=== PATIENT | male | born 1950 | race Caucasian/White ===

== ENCOUNTER 2024-01-31 13:24 | Emergency (ER) | payer OTHER, SELFPAY ==
[2024-01-31 13:44] VITALS: BP 130/57
[2024-01-31 14:48] VITALS: BMI 29.9
--- NOTE | 2024-01-31 15:08 | ED.GENMED ---
History of Present Illness
<Selina Parham PA-C - Last Filed: 01/31/24 19:14>
General
Chief Complaint: Skin Problem
Source: patient
Exam Limitations: none
Time Seen by Provider: 01/31/24 14:40
Nursing documentation reviewed up to this point in time: agreed with
Travel History
Have you had any contact with someone who has COVID-19?: No
Do you have any symptoms of coronavirus? Fever > 100 degrees, chills, cough, shortness of breath, sore throat, loss of taste or smell, muscle aches, or headache?: No
History of Present Illness
History of Present Illness:
73-year-old male with past medical history of COPD on 4 L at baseline, coronary artery disease presenting emergency department today with concerns of redness and swelling to his right lower extremity. Patient states that he currently resides at a
rehab facility to learn how to use his oxygen and one of the nurses noticed the swelling and advised him to report to emergency department. Patient denies any pain in his leg, denies any difficulty ambulating. Patient denies any fevers or chills,
any nausea or vomiting, any abdominal pain. Patient denies any acute worsening of his shortness of breath. Patient denies any chest pain. Of note, patient states that he saw his senior energy analyst for follow-up a few days ago and states that everything
looked good from their standpoint and he was taken off of his Eliquis and now he just takes aspirin. Patient denies any fevers or chills. Of note, patient notes that he fell on his right side recently and he is on Eliquis and hit his head at the
time. Patient did not see anyone at that time
Past History
<Selina Parham PA-C - Last Filed: 01/31/24 19:14>
Past History
ED Past Medical History: COPD
Social History
Tobacco: Smoker
Living: with family
Employment: Not employed
Family History
Family History: Unable to obtain (Patient obtunded)
Review of Systems
<MIRNA Ansari Last Filed: 01/31/24 19:14>
Review of Systems
All Other Systems: ROS reviewed and negative except as documented in HPI and ROS
Phy Exam
<MIRNA Ansari Last Filed: 01/31/24 19:14>
Physical Exam
Physical Exam:
General: Patient is well appearing and in no acute distress; non-toxic
Skin: There is erythema across to anterior surface of the right calf with warmth noted, no open lesions
Head: Hematoma noted to the left forehead, no tenderness palpation of the facial bones. Bilateral ecchymosis noted to the eyebrows bilaterally.
Eyes: Sclera non-icteric. EOMs intact. PERRLA.
Cardiac: Regular rate and rhythm, no murmurs
Peripheral Vascular: 2+ dorsalis pedis pulse bilaterally, non-pitting edema noted to the right lower extremity
Pulm: No tachypnea, no hypoxia, pt on 4L chronically. No wheezes, rales, rhonchi heard on exam
Abdomen: No abdominal tenderness
Musculoskeletal: No tenderness palpation of the right lower extremity, no pain with passive range of motion
Neuro: CN II-XII intact, no focal neurologic deficits.
Psychiatric: Appropriate mood and affect.
Course
<MIRNA Ansari Last Filed: 01/31/24 19:14>
Orders/Labs/Results
Orders:
Orders
01/31/24 15:31
US Legs, Right [US Periph Venous LOWER Ext RT] Urgent
Comment:
Reason For Exam: right lower extremity swelling and erythema
01/31/24 15:41
CT Head W/o Iv Contrast Urgent
Comment:
Reason For Exam: head trauma
01/31/24 17:25
Complete Blood Count/With Diff Urgent
Comprehensive Metabolic Panel Urgent
Abnormal Lab Results
01/31/24
17:25
RBC 3.90 L 10^6/uL
(4.70-6.10)
Hgb 11.5 L g/dL
(13.0-18.0)
Hct 34.7 L %
(39.0-52.0)
Absolute Neuts (auto) 7.3 H 10^3/uL
(1.4-6.5)
Absolute Monos (auto) 0.8 H 10^3/uL
(0.1-0.6)
Neutrophils % 76.5 H %
(42.2-75.2)
Lymphocytes % 12.8 L %
(20.5-51.1)
Carbon Dioxide 32 H mmol/L
(22-30)
BUN 25 H mg/dl
(9-20)
Glucose 104 H mg/dl
(70-99)
Total Bilirubin 1.5 H mg/dl
(0.2-1.3)
01/31/24 17:25
01/31/24 17:25
Vital Signs
Initial and Last Documented VS:
Initial Vital Signs
Temp Pulse Resp BP Pulse Ox
98.8 F 62 20 130/57 93
01/31/24 13:44 01/31/24 13:44 01/31/24 13:44 01/31/24 13:44 01/31/24 13:44
Last Documented Vital Signs
Temp Pulse Resp BP Pulse Ox
98.8 F 63 18 159/68 93
01/31/24 13:44 01/31/24 18:46 01/31/24 18:30 01/31/24 15:36 01/31/24 18:15
Inalt;Nestor Balderrama, DO - Last Filed: 01/31/24 15:48>
Orders/Labs/Results
Orders:
Orders
01/31/24 15:31
US Legs, Right [US Periph Venous LOWER Ext RT] Urgent
Comment:
Reason For Exam: right lower extremity swelling and erythema
01/31/24 15:41
CT Head W/o Iv Contrast Urgent
Comment:
Reason For Exam: head trauma
01/31/24 17:25
Complete Blood Count/With Diff Urgent
Comprehensive Metabolic Panel Urgent
Abnormal Lab Results
01/31/24
17:25
RBC 3.90 L 10^6/uL
(4.70-6.10)
Hgb 11.5 L g/dL
(13.0-18.0)
Hct 34.7 L %
(39.0-52.0)
Absolute Neuts (auto) 7.3 H 10^3/uL
(1.4-6.5)
Absolute Monos (auto) 0.8 H 10^3/uL
(0.1-0.6)
Neutrophils % 76.5 H %
(42.2-75.2)
Lymphocytes % 12.8 L %
(20.5-51.1)
Carbon Dioxide 32 H mmol/L
(22-30)
BUN 25 H mg/dl
(9-20)
Glucose 104 H mg/dl
(70-99)
Total Bilirubin 1.5 H mg/dl
(0.2-1.3)
01/31/24 17:25
01/31/24 17:25
Vital Signs
Initial and Last Documented VS:
Initial Vital Signs
Temp Pulse Resp BP Pulse Ox
98.8 F 62 20 130/57 93
01/31/24 13:44 01/31/24 13:44 01/31/24 13:44 01/31/24 13:44 01/31/24 13:44
Last Documented Vital Signs
Temp Pulse Resp BP Pulse Ox
98.8 F 63 18 159/68 93
01/31/24 13:44 01/31/24 18:46 01/31/24 18:30 01/31/24 15:36 01/31/24 18:15
<MIRNA Ansari Last Filed: 01/31/24 19:14>
MDM/Problems Addressed
Differential Diagnosis Includes:
Differentials include CHF exacerbation, lymphedema, cellulitis, erysipelas, DVT
MDM/Problems Addressed:
Right leg swelling
Chronic conditions affecting care:
COPD, emphysema, coronary artery disease
Acute Exacerbation and/or Progression of Chronic Illness:
COPD,
<MIRNA Ansari Last Filed: 01/31/24 19:14>
*Pulse Oximetry
Patient hypoxic: no (4L @ baseline)
*Upper Leather Sorter Interpretation
Rate: normal
Interpretation: normal
Heart Rate: 60
Rhythm: sinus
*Critical Care Note
Total Time (30-74mins, 75-104mins- exclusive of procedures): Not Applicable
Data Reviewed
Source: patient and records
<MIRNA Ansari Last Filed: 01/31/24 19:14>
Patient Management
Escalation/DeEscalation of care consider admission/obs:
73-year-old male with past medical history of COPD on 4 L at baseline, coronary artery disease presenting emergency department today with concerns of redness and swelling to his right lower extremity. Patient sent by his nurse for concerns of DVT.
Patient denies any pain in his leg, any difficulty ambulating, any new or worsening shortness of breath other than his chronic baseline symptoms. Patient denies any chest pain. CT negative for any acute intracranial abnormality other than his
scalp hematoma noted on physical exam. Will treat with antibiotics for cellulitis. Advised cardiology and PCP follow-up. Patient stable for discharge.
ED Attending Note
<Selina Parham PA-C - Last Filed: 01/31/24 19:14>
-
Portions of this chart may have been created with voice recognition software.� Occasional wrong word or��sound alike� substitutions may have occurred due to the inherent limitations of voice recognition software.
<Nestor Balderrama DO - Last Filed: 01/31/24 15:48>
ED Attending Note
Patient seen and examined by attending physician: Yes
I performed a history and physical exam of patient and discussed management with resident, I reviewed resident's note and agree with documented findings and plan of care.: Yes
ED Attending Note:
I have reviewed and agree with history and treatment plan by Selina Parham. My exam revealed 73-year-old male no acute distress, erythema and edema on the right lower leg. Good. Patient on oxygen in ED. He is on oxygen at baseline. Ecchymosis
under bilateral eyes. Will obtain CBC, ultrasound. CT head
Discharge Plan
Departure
Patient Disposition: Home (Routine Discharge)
Date of Disposition: 01/31/24
Time of Disposition: 18:09
Patient with high blood pressure during this ER visit?: Yes
Discharge Problem:
Cellulitis
Instructions: Cellulitis (Skin Infection), Adult (DC), BLOOD PRESSURE
Prescriptions:
New
cephalexin 500 mg capsule
500 mg PO QID 7 Days Qty: 28 0RF
No Action
amlodipine 5 MG tablet
5 mg PO DAILY 30 Days Qty: 30 0RF
aspirin 81 MG tablet,chewable
81 mg PO DAILY 30 Days Qty: 30 0RF
metoprolol tartrate 25 MG tablet
25 mg PO BID 30 Days Qty: 60 11RF
bicalutamide 50 mg tablet
50 mg PO DAILY
furosemide 40 mg Tablet
40 mg PO BID AT 0800,1600 Qty: 60 0RF
potassium chloride 10 mEq Tablet,Er Particles/Crystals
10 meq PO DAILY Qty: 30 0RF
Rx Instructions:
take with lasix
ipratropium-albuterol 0.5 mg-3 mg(2.5 mg base)/3 mL Solution For Nebulization
3 ml inhalation R BID Qty: 90 0RF
budesonide 0.5 mg/2 mL Suspension For Nebulization
0.5 mg inhalation R BID Qty: 60 0RF
acetaminophen 325 mg Tablet
650 mg PO Q4HPRN PRN (Reason: mild pain)
ammonium lactate 12 % Lotion
1 applic TOPICAL BID
Rx Instructions:
apply to R lower extremity
sertraline 50 mg Tablet
100 mg PO DAILY
mometasone 0.1 % Cream
1 applic TOPICAL BID
Rx Instructions:
apply to R lower extremity
tiotropium bromide 2.5 mcg/actuation Mist
2 puff INHALATION R DAILY
atorvastatin 40 MG tablet
40 mg PO QPM
magnesium hydroxide [Milk of Magnesia] 400 mg/5 mL suspension
30 ml PO DAILYPRN PRN (Reason: constipation)
bisacodyl 10 mg suppository
10 mg NE DAILYPRN PRN (Reason: constipation if mom is ineffective)
Enema 19-7 gram/118 mL enema
118 ml NE DAILYPRN PRN (Reason: constipation if dulcolax ineff)
Referrals:
NONE,* [Active] -
Activity Restrictions/Additional Instructions:
Please follow up with your primary care provider in one week to ensure the resolution of your symptoms.
We have sent an antibiotic called Keflex to your pharmacy. Please take one tablet 4 times daily for 7 days.
PLEASE RETURN TO THE EMERGENCY DEPARTMENT SHOULD YOU EXPERIENCE CHEST PAIN, SHORTNESS OF BREATH, FEVERS OR CHILLS, NAUSEA OR VOMITING, OR ANY OTHER CONCERNING SIGNS OR SYMPTOMS.
Interventions
Interventions:
*Risk Screen - Suicide Last Done: 01/31/24 13:44
*General Assessment Last Done: 01/31/24 13:44
*Neglect/Abuse Screening Last Done: 01/31/24 13:44
ED- Fall Risk Assessment Last Done: 01/31/24 14:48
*ED COVID-19 Vaccine History Last Done: 01/31/24 14:53
ED-Skin Assessment Last Done: 01/31/24 14:53
Discharge Date and Time
Print Language: GREENLANDIC
[2024-01-31 15:36] VITALS: BP 159/68
[2024-01-31 17:34] LABS: % Basophils 0.3 % (0-2); % Eosinophils 1.5 % (0-6); % Immature Granulocytes 0.3 % (0-0.5); % Lymphocytes 12.8 % (20.5-51.1); % Monocytes 8.6 % (1.7-9.3); % Neutrophils 76.5 % (42.2-75.2); Absolute Eosinophils 0.1 10^3/uL (0-0.7); Absolute Lymphocytes 1.2 10^3/uL (1.2-3.4); Absolute Monocytes 0.8 10^3/uL (0.1-0.6); Absolute Neutrophils 7.3 10^3/uL (1.4-6.5); Hematocrit 34.7 % (39.0-52.0); Hemoglobin 11.5 g/dL (13.0-18.0); Mean Corp Hgb Conc. 33.1 g/dL (33.0-37.0); Mean Corpuscular Hgb 29.5 pg (27.0-31.0); Mean Platelet Volume 9.7 fL (7.4-10.4); Nucleated Red Blood Cells % 0 % (-); Platelet Count 282 10^3/uL (130-400); Red Cell Dist. Width 13.1 % (11.5-14.5); White Blood Cell Count 9.6 10^3/uL (4.8-10.8)
[2024-01-31 17:51] LABS: ALT (SGPT) 18 U/L (0-50); AST (SGOT) 27 U/L (17-59); Alkaline Phosphatase 108 U/L (38-126); Blood Urea Nitrogen 25 mg/dl (9-20); Carbon Dioxide 32 mmol/L (22-30); Chloride 98 mmol/L (98-107); Estimated Creatinine Clearance 79 ml/min; Glucose 104 mg/dl (70-99); Potassium 4.5 mmol/L (3.5-5.1); Sodium 139 mmol/L (135-145); Total Bilirubin 1.5 mg/dl (0.2-1.3); Total Protein 6.9 g/dl (6.3-8.2); eGFR > 60.00
== END 2024-01-31 21:14 | disposition home or self-care (01) ==
LOC: EMR 13:24
PROVIDERS: Student in an Organized Health Care Education/Training Program; EMERGENCY PHYSICIAN Emergency Medicine; FAMILY PHYSICIAN Internal Medicine Geriatric Medicine
DX: L03.115 Cellulitis of right lower limb (principal); R03.0 Elevated blood-pressure reading, without diagnosis of hypertension; F17.200 Nicotine dependence, unspecified, uncomplicated; I25.10 Atherosclerotic heart disease of native coronary artery without angina pectoris
CPT/HCPCS: 99285; 70450; 80053; 85025; 93971

== ENCOUNTER 2024-03-23 12:27 | Emergency (ER) | payer OTHER, SELFPAY ==
[2024-03-23 12:30] VITALS: BP 130/67
[2024-03-23 12:35] VITALS: BP 130/67; BMI 32.0
--- NOTE | 2024-03-23 12:55 | ED.GENMED ---
History of Present Illness
General
Chief Complaint: Breathing Problem
Source: patient
Time Seen by Provider: 03/23/24 12:49
History of Present Illness
History of Present Illness:
This patient is a 73-year-old male with a history of pulmonary fibrosis/respiratory disease, oxygen dependent, who presents emergency department from the pulmonary office where he was being seen by a nurse practitioner and was noted to have an
increasing oxygen requirement. Patient says he feels 'perfect', and is sitting in bed watching TV with 4 L of oxygen in place via nasal cannula. He denies fever, chills, cough, sore throat, rhinorrhea, chest pain, new shortness of breath. Patient
has chronic dyspnea on exertion which she says is unchanged. He denies orthopnea or PND. According to the INCOME TAX EXPERT note, patient was noted to have an increasing oxygen requirement with his 6-minute walking test and therefore was referred to the ER.
Past History
Past History
ED Past Medical History: COPD and Other ( Adenocarcinoma of prostate, Muscle wasting and atrophy, Hypertension, Anxiety, NSTEMI (non-ST elevated myocardial infarction), Nocturia, Heart failure with preserved ejection fraction, VT (ventricular
tachycardia), Cellulitis, Metabolic encephalopathy, Acute respiratory failure with hyp)
Social History
Tobacco: Smoker
Alcohol: None
Drug: None
Living: shelter
Employment: Not employed
Family History
Family History: Unable to obtain (Patient obtunded)
Phy Exam
Physical Exam
Physical Exam:
GENERAL: Alert , in no apparent distress
EYE: pupils equal and reactive, no photophobia
NECK: Supple, no significant adenopathy.
ENT: o/p clr, mmm.
CARDIAC: Regular rate and rhythm .
LUNGS: Equal breath sounds bilaterally, no acute respiratory distress, no retractions, speaks in full sentences easily, bibasilar rales noted
ABDOMEN: Soft, without focal tenderness, no r/g, no cvat
NEUROLOGICAL: Alert and oriented, no focal neuro deficits
SKIN: Warm and dry, skin intact.
MUSCULOSKELETAL: Trace bilateral lower extremity edema, well perfused.
PSYCH: Normal and appropriate interaction.
Scores
Heart Failure Risk
Heart Failure Risk Score: Not Applicable
Course
Orders/Labs/Results
Orders:
Orders
03/23/24 13:13
Venous Blood Gas Stat
%Oxygen/Room Air: 3l
03/23/24 14:05
ABG [Arterial Blood Gas] Stat
%Oxygen/Room Air: 4
Abnormal Lab Results
03/23/24 03/23/24
13:13 14:05
pCO2 54 H mmHg
(35-48)
pO2 72 L mmHg
(83-108)
HCO3 37.5 H mmol/L
(21-28)
VBG pCO2 59 H mmHg
(35-48)
VBG pO2 121 H mmHg
(30-50)
VBG HCO3 37.4 H mmol/L
(22-27)
Vital Signs
Initial and Last Documented VS:
Initial Vital Signs
Temp Pulse Resp BP Pulse Ox
98.3 F 56 19 130/67 92
03/23/24 12:35 03/23/24 12:35 03/23/24 12:35 03/23/24 12:35 03/23/24 12:35
Last Documented Vital Signs
Temp Pulse Resp BP Pulse Ox
98.3 F 56 19 130/67 92
03/23/24 12:35 03/23/24 12:35 03/23/24 12:35 03/23/24 12:35 03/23/24 12:35
*Critical Care Note
Total Time (30-74mins, 75-104mins- exclusive of procedures): Not Applicable
Update Note
Update Note:
Patient presents to the Emergency Department with ___reported increasing hypoxia with walking
Number and Complexity of Problems Addressed at the Encounter
� Chronic conditions affecting care:
� Acute Exacerbation and/or Progression of Chronic Illness:
� Differential Diagnosis includes: But not limited to worsening underlying pulmonary disease, heart failure, ACS, etc.
Amount and/or Complexity of Data to be Reviewed and Analyzed
� I performed an independent evaluation of and my interpretation is:
EKG:
CT:
Xrays:
Laboratory Studies:
Other:
� Review of other/old records reveals: Office note from ecw '6MW test today 03/23/24 he required 8L NC to maintain above 88% .
I reviewed wtih him my concen that he can not be on that much oxygen safely.
Previously only 3 L NC
He refuses to the ER for evaluation
He refuses to allow me to call his family to discuss.
I reviewed with him that he is at risk for sudden , CVA, CT and other problems related to his hypoxia.
Our staff spoke to the staff at [facility] and they have informed us that this has happened several times at the facility and he refuses ER evaluation.
I am concerned that his Co2 levels are elevated and he is not of the mental state to make these decisions.
911 was called by our practice
-
Ideally, he would benefit from nocturnal noninvasive mechanical ventilation. He declined.
� Clinical information was obtained by an independent historian:
� Prescriptions/Medications Considered but not given:
� Further testing considered but not performed:
Risk of Complications and/or Morbidity or Mortality of Patient Management
� Social determinants of health affecting care:
� Discussion with other providers (PCP, Hospitalists, Consultants, etc):
� Escalation of care including admission/observation vs risk of discharge considered: 2:37 PM patient remains awake alert well-appearing. And interactions with him I do not have concerns that he is incompetent to make decisions,
and clearly cannot state that he understands risks. His ABG does not demonstrate excessive CO2 elevation. Case d/w pulm (Nicolette) and is aware, agrees.
Case dw nursing care attendant at facility, Clari, also aware of hx, phys, vitals, abg etc and also agrees, accepts him back.
ED Attending Note
-
Portions of this chart may have been created with voice recognition software.� Occasional wrong word or��sound alike� substitutions may have occurred due to the inherent limitations of voice recognition software.
Discharge Plan
Departure
Patient Disposition: Home (Routine Discharge)
Date of Disposition: 03/23/24
Time of Disposition: 15:28
Patient with high blood pressure during this ER visit?: Yes
Condition: Good
Discharge Problem:
Dyspnea
Instructions: Shortness of Breath (Dyspnea) (DC), BLOOD PRESSURE
Prescriptions:
No Action
amlodipine 5 MG tablet
5 mg PO DAILY 30 Days Qty: 30 0RF
aspirin 81 MG tablet,chewable
81 mg PO DAILY 30 Days Qty: 30 0RF
metoprolol tartrate 25 MG tablet
25 mg PO BID 30 Days Qty: 60 11RF
bicalutamide 50 mg tablet
50 mg PO DAILY
potassium chloride 10 mEq Tablet,Er Particles/Crystals
10 meq PO DAILY Qty: 30 0RF
Rx Instructions:
take with lasix
ipratropium-albuterol 0.5 mg-3 mg(2.5 mg base)/3 mL Solution For Nebulization
3 ml inhalation R BID Qty: 90 0RF
budesonide 0.5 mg/2 mL Suspension For Nebulization
0.5 mg inhalation R BID Qty: 60 0RF
acetaminophen 325 mg Tablet
650 mg PO Q4HPRN PRN (Reason: mild pain)
sertraline 50 mg Tablet
100 mg PO DAILY
tiotropium bromide 2.5 mcg/actuation Mist
2 puff INHALATION R DAILY
atorvastatin 40 MG tablet
40 mg PO QPM
magnesium hydroxide [Milk of Magnesia] 400 mg/5 mL suspension
30 ml PO DAILYPRN PRN (Reason: constipation)
bisacodyl 10 mg suppository
10 mg AL DAILYPRN PRN (Reason: if mom is ineffective)
Enema 19-7 gram/118 mL enema
118 ml AL DAILYPRN PRN (Reason: constipation if dulcolax ineff)
furosemide 40 mg tablet
40 mg PO BID
Referrals:
Keshav Hdez MD [Family Provider] -
Activity Restrictions/Additional Instructions:
IF YOU DEVELOP FEVER, CHILLS, VOMITING, CHEST PAIN, WORSENING TROUBLE BREATHING, OR OTHER WORRISOME SIGNS, GO TO THE ER IMMEDIATELY!
Discharge Date and Time
Print Language: MALIAN
[2024-03-23 13:01] VITALS: BP 121/102
[2024-03-23 13:33] LABS: Venous Blood Gas B.E. 10.5 mmol/L (-4 to +4); Venous Blood Gas HCO3 37.4 mmol/L (22-27); Venous Blood Gas O2 Sat % 99.1 %; Venous Blood Gas O2 Therapy 31; Venous Blood Gas pCO2 59 mmHg (35-48); Venous Blood Gas pH 7.41 (7.32-7.43); Venous Blood Gas pO2 121 mmHg (30-50)
[2024-03-23 14:00] VITALS: BP 130/70
[2024-03-23 14:11] LABS: B.E. 11.5 mmol/L; HCO3 37.5 mmol/L (21-28); O2 Saturation % 96.4 % (94-98); PCO2 54 mmHg (35-48); PO2 72 mmHg (83-108); pH 7.45 (7.35-7.45)
[2024-03-23 15:00] VITALS: BP 127/69
[2024-03-23 16:00] VITALS: BP 134/77
== END 2024-03-23 18:11 | disposition home or self-care (01) ==
LOC: EMR 12:27
PROVIDERS: EMERGENCY PHYSICIAN Emergency Medicine; FAMILY PHYSICIAN Internal Medicine Geriatric Medicine
DX: R06.09 Other forms of dyspnea (principal); I11.0 Hypertensive heart disease with heart failure; I50.32 Chronic diastolic (congestive) heart failure; F17.200 Nicotine dependence, unspecified, uncomplicated; J84.10 Pulmonary fibrosis, unspecified; Z99.81 Dependence on supplemental oxygen
CPT/HCPCS: 99283; 82805

== ENCOUNTER → 2024-04-09 11:11 | Outpatient (REF) | payer OTHER, SELFPAY | LOC: RCS 11:11 | PROVIDERS: ATTENDING PHYSICIAN Nuclear Medicine Nuclear Cardiology; FAMILY PHYSICIAN Internal Medicine | DX: I50.31 Acute diastolic (congestive) heart failure (principal) | CPT/HCPCS: 93306 ==

== ENCOUNTER 2024-08-08 14:46 | Inpatient (IN) | payer OTHER, SELFPAY ==
[2024-08-08] VITALS (25 sets, daily range): BP systolic 100–159; BP diastolic 52–91; PULSE 2–73; BMI 33.2
[2024-08-08 11:22] LABS: % Basophils 0.3 % (0-2); % Immature Granulocytes 0.4 % (0-0.5); % Lymphocytes 4.2 % (20.5-51.1); % Monocytes 7.7 % (1.7-9.3); % Neutrophils 87.4 % (42.2-75.2); Absolute Immature Granulocytes 0.1 10^3/uL (0-0.05); Absolute Lymphocytes 0.5 10^3/uL (1.2-3.4); Absolute Neutrophils 10.8 10^3/uL (1.4-6.5); Hematocrit 40.8 % (39.0-52.0); Hemoglobin 12.6 g/dL (13.0-18.0); Mean Corp Hgb Conc. 30.9 g/dL (33.0-37.0); Mean Corpuscular Hgb 26.8 pg (27.0-31.0); Mean Corpuscular Volume 86.8 fL (80.0-94.0); Mean Platelet Volume 9.3 fL (7.4-10.4); Nucleated Red Blood Cells % 0.2 % (-); Platelet Count 305 10^3/uL (130-400); Red Cell Dist. Width 15.1 % (11.5-14.5); White Blood Cell Count 12.4 10^3/uL (4.8-10.8)
[2024-08-08 11:34] LABS: Lactic Acid 1.9 mmol/L (0.7-2.0)
--- NOTE | 2024-08-08 11:43 | ED.GENMED ---
History of Present Illness
General
Chief Complaint: Breathing Problem
Source: patient
Exam Limitations: none
Time Seen by Provider: 08/08/24 11:32
History of Present Illness
History of Present Illness:
See MDM
Past History
Past History
ED Past Medical History: COPD and Other ( Adenocarcinoma of prostate, Muscle wasting and atrophy, Hypertension, Anxiety, NSTEMI (non-ST elevated myocardial infarction), Nocturia, Heart failure with preserved ejection fraction, VT (ventricular
tachycardia), Cellulitis, Metabolic encephalopathy, Acute respiratory failure with hyp)
Social History
Tobacco: Smoker
Alcohol: None
Drug: None
Living: assisted
Employment: Not employed
Family History
Family History: Unable to obtain (Patient obtunded)
Phy Exam
Physical Exam
Physical Exam:
See MDM
Scores
Heart Failure Risk
Heart Failure Risk Score: Yes
History of Stroke or TIA: No
History of intubation for respiratory distress: No
Heart rate on ED arrival >/= 110: No
SaO2 <90% on arrival on room air: Yes
HR >/=110 during 3min walk test (or too ill to perform test): Yes
ECG has acute ischemic changes: No
Urea >/=12mmol/L (BUN 33.6mg/dL): No
Serum CO2>/=35mmol/L: No
Troponin I or T elevated to LA Level (0.4mg/dL): No
NT-proBNP >/=5,000ng/L (5,000pg/ml): Yes
HF Risk Score: 4
Admission Status: HIGH RISK 26.1% Consider SNF treatment or admission to hospital
Course
Orders/Labs/Results
Orders:
Orders
08/08/24 11:05
ECG [Electrocardiogram (*1)] Urgent
Reason for Study: Shortness of Breath
08/08/24 11:07
EKG- Treatment ONCE
Cr Chest Portable [CR Chest Portable - 1 View] Urgent
Comment:
Reason For Exam: SOB
Reason Study Needs to be Portable: Patient Unstable
08/08/24 11:09
Complete Blood Count/With Diff Urgent
Comprehensive Metabolic Panel Urgent
Lactic Acid Urgent
NT-proBNP Urgent
Troponin I Urgent
08/08/24 11:42
Furosemide [Lasix] 80 mg IV NOW STA
Bipap [RESP] Urgent
Patient to use own unit?: No
Inspiratory Pressure (cm H2O): 10
Expiratory Pressure (cm H2O): 5
08/08/24 11:45
Piperacillin/Tazo 3.375 Gram [Zosyn] 3.375 gram in 50 ml IV NOW
08/08/24 11:50
Vancomycin [Vancocin] 2,000 mg 0.9% Sodium Chloride 500 ml [Nss] 500 ml IV NOW
08/08/24 12:08
Blood Culture Q30M
DEMARCUS Source: Blood/Venous
Specimen Description:
Blood Culture Q30M
DEMARCUS Source: Blood/Venous
Specimen Description:
Abnormal Lab Results
08/08/24
11:09
WBC 12.4 H 10^3/uL
(4.8-10.8)
Hgb 12.6 L g/dL
(13.0-18.0)
MCH 26.8 L pg
(27.0-31.0)
MCHC 30.9 L g/dL
(33.0-37.0)
RDW 15.1 H %
(11.5-14.5)
Abs Immat Gran (auto) 0.1 H 10^3/uL
(0-0.05)
Absolute Neuts (auto) 10.8 H 10^3/uL
(1.4-6.5)
Absolute Lymphs (auto) 0.5 L 10^3/uL
(1.2-3.4)
Absolute Monos (auto) 1.0 H 10^3/uL
(0.1-0.6)
Neutrophils % 87.4 H %
(42.2-75.2)
Lymphocytes % 4.2 L %
(20.5-51.1)
Troponin I 0.234 H* ng/ml
08/08/24 11:09
Vital Signs
Initial and Last Documented VS:
Initial Vital Signs
Temp Pulse Resp BP Pulse Ox
98.7 F 78 20 117/63 90
08/08/24 11:10 08/08/24 11:10 08/08/24 11:10 08/08/24 11:10 08/08/24 11:10
Last Documented Vital Signs
Temp Pulse Resp BP Pulse Ox
98.7 F 71 20 134/75 89
08/08/24 11:10 08/08/24 13:00 08/08/24 13:00 08/08/24 12:30 08/08/24 13:00
MDM/Problems Addressed
Differential Diagnosis Includes:
HPI and MDM Narrative:
73-year-old male presenting from nursing facility for evaluation of hypoxia. He has a history of COPD. Patient found to have active cough. He was found to have low pulse ox. On arrival, patient placed on nonrebreather. She was admitted
initially minimally responsive. With nonrebreather, patient now awake and alert. Patient has rhonchorous and crackly breath sounds. Chest x-ray was performed which shows concern for pulmonary edema. Patient given IV Lasix and placed on BiPAP
Physical exam
General: Uncomfortable, respiratory distress
HEENT: protecting airway
Neck: appears supple
CV: No evidence of cyanosis. Regular rate and rhythm
Resp: Crackling breath sounds throughout
Abd: Non-distended
Extremities: +2 pitting edema in lower extremities
Neuro: alert
Psych: Flat affect
Skin: Intact
Problems Addressed including Acute and Chronic Conditions affecting care:
1. Pulmonary edema and respiratory distress
Acuity: acute
Prognosis: unstable
Details: Patient requiring IV Lasix and BiPAP
2. pneumonia
Acuity: acute
Prognosis: stable
Details: Patient started on vancomycin and Zosyn
3. Hypoxia
Acuity: acute
Prognosis: unstable
Details: In the setting of pulmonary edema. Patient placed on BiPAP
4. [ ]
Acuity: acute
Prognosis: stable
Details:
5. [ ]
Acuity:
Prognosis:
Details:
Updates
Differential Diagnosis (but not limited to): Pulmonary edema, pneumonia
Testing considered: D-dimer
Drug therapy (if applicable): OTC meds, please see d/c instruction regarding Rx drugs
Amount and/or Complexity of Data Reviewed
Clinical info obtained from: Patient
External data reviewed: N/A
Labs I independently reviewed (but not limited to): [ ]
Radiology: X-ray independently reviewed: Chest x-ray concerning for pulmonary edema and right middle lobe pneumonia
Pulse Ox: hypoxic
EKG independently reviewed: Sinus rhythm, left axis, no STEMI
Building Maintenance Custodian: Sinus rhythm
Critical Care: The high probability of a clinically significant, sudden or life threatening deterioration of the cardiopulmonary system(s) required my full and direct attention, intervention and personal management. The aggregate critical care time
was 35 minutes. This time is in addition to time spent performing reported procedures but includes the following:
[x] Data Review and interpretation
[x] Patient assessment and monitoring of vital signs
[x] Documentation
[x] Medication orders and management
Risk of Complication:
Social Determinants of health: Good social support
Discussed with other providers: Hospitalist
Escalation of Care includes Admit/Obs: Given the pulmonary edema requiring IV Lasix and BiPAP, will admit
Occasional wrong word or 'sound a like' substitutions may have occurred due to the inherent limitations of voice recognition software. Read the chart carefully and recognize, using context, where substitutions have occurred.
*Critical Care Note
Total Time (30-74mins, 75-104mins- exclusive of procedures): 35 min
ED Attending Note
-
Portions of this chart may have been created with voice recognition software.� Occasional wrong word or��sound alike� substitutions may have occurred due to the inherent limitations of voice recognition software.
Discharge Plan
Departure
Patient Disposition: Admit
Date of Disposition: 08/08/24
Time of Disposition: 11:47
Admit to: IMU
Presentation/result/management discussed w/ accepting MD/DO: Hospitalist
Discharge Problem:
Pulmonary edema, PNA (pneumonia), Hypoxia
Prescriptions:
No Action
amlodipine 5 MG tablet
5 mg PO DAILY 30 Days Qty: 30 0RF
aspirin 81 MG tablet,chewable
81 mg PO DAILY 30 Days Qty: 30 0RF
metoprolol tartrate 25 MG tablet
25 mg PO BID 30 Days Qty: 60 11RF
bicalutamide 50 mg tablet
50 mg PO DAILY
potassium chloride 10 mEq Tablet,Er Particles/Crystals
10 meq PO DAILY Qty: 30 0RF
Rx Instructions:
take with lasix
ipratropium-albuterol 0.5 mg-3 mg(2.5 mg base)/3 mL Solution For Nebulization
3 ml inhalation R BID Qty: 90 0RF
budesonide 0.5 mg/2 mL Suspension For Nebulization
0.5 mg inhalation R BID Qty: 60 0RF
acetaminophen 325 mg Tablet
650 mg PO Q4HPRN PRN (Reason: mild pain/fever)
sertraline 50 mg Tablet
100 mg PO DAILY
tiotropium bromide 2.5 mcg/actuation Mist
2 puff INHALATION R DAILY
magnesium hydroxide [Milk of Magnesia] 400 mg/5 mL suspension
30 ml PO DAILYPRN PRN (Reason: constipation)
bisacodyl 10 mg suppository
10 mg AR DAILYPRN PRN (Reason: if mom is ineffective after 24h)
Enema 19-7 gram/118 mL enema
118 ml AR DAILYPRN PRN (Reason: constipation if dulcolax ineff)
furosemide 40 mg tablet
40 mg PO BID
atorvastatin 20 mg Tablet
20 mg PO HS
Referrals:
Adam Leiva I., DO [Family Provider] -
Interventions
Interventions:
*General Assessment Last Done: 08/08/24 11:15
ED- Fall Risk Assessment Last Done: 08/08/24 11:16
ED- Cardiac Assessment Last Done: 08/08/24 11:16
ED- Pulmonary Assessment Last Done: 08/08/24 11:16
Discharge Date and Time
Print Language: HUNGARIAN
[2024-08-08 11:54] LABS: NT-proBNP 13100 pg/ml; Troponin I 0.234 ng/ml
[2024-08-08] MEDS: ZOSYN 50 IV (12:09)
[2024-08-08] MEDS: LASIX 80 MG IV ×2 (12:09→20:47)
[2024-08-08] MEDS: VANCOCIN 540 MG IV (12:37)
--- NOTE | 2024-08-08 13:35 | HPS.HSE ---
Family Physician
-
Family Physician: Adam Leiva
Chief Complaint
-
cough and shortness of breath
History of Present Illness
Mr. Adam Styles is a 73 yo man with hx COPD, CAD s/p PCI, essential HTN, prostate CA, HFpEF presents to the ER with cough and hypoxia.
Patient unable to elaborate on history. He presents from [facility]. Per triage he has had worsening cough and was noted to be hypoxic this morning, arrived on NRB. Patient placed on BiPAP in ER.
He currently denies chest pain. He is able to tell me he is in [facility].
Medical History
Past Medical History
Past Medical History: Reports Other ( COPD, CAD s/p PCI, essential HTN, prostate CA, HFpEF)
Past Surgical History: Reports None
Social History
Tobacco: Smoker
Alcohol: None
Drug: None
Family History
Family History: Not pertinent
Allergies / Home Medications
Allergies reflects when Allergies were last updated in [facility].
Home Medications with original date entered in [facility]
Allergy/Medication List:
Allergies
Allergy/AdvReac Type Severity Reaction Status Date / Time
No Known Allergies Allergy Verified 08/08/24 11:15
Home Medications
amlodipine 5 mg tablet 5 mg PO DAILY 30 days #30 tabs 04/01/22
aspirin 81 mg chewable tablet 81 mg PO DAILY Heart disease/condition 30 days #30 tabs 04/01/22
metoprolol tartrate 25 mg tablet 25 mg PO BID Heart disease/condition 30 days #60 tabs 04/01/22
bicalutamide 50 mg tablet 50 mg PO DAILY Cancer 03/31/23
budesonide 0.5 mg/2 mL suspension for nebulization 0.5 mg (2 mL) inhalation R BID #60 mL 04/15/23
ipratropium 0.5 mg-albuterol 3 mg (2.5 mg base)/3 mL nebulization soln 3 ml inhalation R BID #90 mL 04/15/23
potassium chloride 10 mEq tablet,extended release(part/cryst) 10 meq PO DAILY #30 tabs 04/15/23
acetaminophen 325 mg tablet 650 mg PO Q4HPRN PRN mild pain/fever 01/31/24
bisacodyl 10 mg rectal suppository 10 mg IA DAILYPRN PRN if mom is ineffective after 24h 01/31/24
magnesium hydroxide 400 mg/5 mL oral suspension (Milk of Magnesia) 30 ml PO DAILYPRN PRN constipation 01/31/24
sertraline 50 mg tablet 100 mg PO DAILY 01/31/24
sodium phosphates 19 gram-7 gram/118 mL enema (Enema) 118 ml IA DAILYPRN PRN constipation if dulcolax ineff 01/31/24
tiotropium bromide 2.5 mcg/actuation mist for inhalation 2 puff inhalation R DAILY 01/31/24
furosemide 40 mg tablet 40 mg PO BID 03/23/24
atorvastatin 20 mg tablet 20 mg PO HS 08/08/24
Review of Systems
-
History Source: Patient
A 12 point ROS was completed and negative except as noted: Yes
Physical Exam
Vital Signs
Vital Signs
Temp Pulse Resp BP Pulse Ox
98.7 F 71 20 134/75 89
08/08/24 11:10 08/08/24 13:00 08/08/24 13:00 08/08/24 12:30 08/08/24 13:00
Physical Exam
General: Other (patient on BiPAP, awoken with voice. able to answer simple questions yes or no)
HEENT: PERRLA
Respiratory: Rales and Rhonchi; No Wheezes
Cardiac: S1/S2 and Regular Rhythm
GI: Soft and Non Tender
Musculoskeletal: Edema, Left Lower Extremity and Edema, Right Lower Extremity
Skin: Warm and Dry; No Rash
Neuro: Awake, Alert and Oriented (to place )
Psych: Calm
Laboratory Results
-
08/08/24 11:09
Laboratory Results
Lactic Acid 1.9 mmol/L (0.7-2.0) 08/08/24 11:09
Troponin I 0.234 ng/ml H* 08/08/24 11:09
Data Reviewed
-
Diagnostic Radiology: Report Reviewed by me
Lab Data: Labs Reviewed by me
Impression/Plan
-
Mr. Adam Styles is a 73 yo man with hx COPD, CAD s/p PCI, essential HTN, prostate CA, HFpEF presents to the ER with cough and hypoxia.
Triage VS: T 98.7, P 78, RR 20, BP 117/63, SpO2 90%
LABS: WBC 12.4, Hg 12.6, PLT 305, Na 142, K+ 3.7, Cl 94, CO2 35, BUN 27, Cr 0.9, Glucose 139, Lactate 1.9, lvier enzymes WNL, Trop 0.234, BNP 14849
Trop 0.234, BNP 36614
CXR: IMPRESSION:
Cardiomegaly. Radiographic findings felt to most likely represent pulmonary edema. See above discussion.
MAR: IV lasix, Vanc, Zosyn
Hypoxic Respiratory Failure
-per ER note, patient initially found minimally responsive, awake and alert post placement NRB; placed on BiPAP in ER. He wakes up to voice, minimally conversant. Will order ABG
-continue BiPAP for now
-admit to IMU
-treat heart failure as blow
-follow up flu, covid testing
-follow up procal - if elevated, will continue antibiotics (cover for CAP)
*I called sister's number listed in chart and left VM
Heart Failure preserved EF, Acute Exacerbation
-patient is on Lasix 40mg PO BID at home
-CXR with e/o HR, BNP elevated
-s/p 1 dose IV lasix in the ER
-will continue lasix 40mg IV BID
-daily weights, strict I/O
-repeat TTE
-cardiology consult
Non-DC Troponin Elevation in setting of chest pain
-patient denies chest pain
-trend Troponin
-repeat echo as above
prostate CA
-ADHESIVE BANDAGE MACHINE OPERATOR Bicalutamide
CAD s/p PCI 2021
-continue ADHESIVE BANDAGE MACHINE OPERATOR asa, statin, metoprolol
Essential HTN
-ADHESIVE BANDAGE MACHINE OPERATOR Amlodipine
Depression
-ADHESIVE BANDAGE MACHINE OPERATOR Sertraline 100mg PO QD
DVT PPx Lovenox
FULL CODE - per POLST in room (patient shakes head yes would want CPR and intubation)
Total Critical Care Time 65 minutes. I was immediately available to the patient and staff. I personally examined, reviewed labs, diagnostic images/reports, interpretations, treatment plans, discussed patient care with other providers and family
or caregivers (if patient is unable to make decisions), entered orders as appropriate and documented the medical record.
[2024-08-08 14:02] LABS: ALT (SGPT) 19 U/L (0-50); AST (SGOT) 25 U/L (17-59); Alkaline Phosphatase 91 U/L (38-126); Blood Urea Nitrogen 27 mg/dl (9-20); Calcium 8.8 mg/dl (8.4-10.2); Carbon Dioxide 35 mmol/L (22-30); Chloride 94 mmol/L (98-107); Estimated Creatinine Clearance 93 ml/min; Glucose 139 mg/dl (70-99); Potassium 3.7 mmol/L (3.5-5.1); Sodium 142 mmol/L (135-145); Total Protein 7.2 g/dl (6.3-8.2); eGFR > 60.00
--- NOTE | 2024-08-08 14:31 | CON.CAR ---
Addendum entered and electronically signed by Milton Warren MD 08/08/24 17:49:
I saw and examined the patient.
The Lawyer's note was reviewed and I agree with the note.
Comment: Briefly, 73-year-old man past medical history of heart failure preserved ejection fraction, CAD with multiple stents in the past and severe COPD on 3 L home O2 who was brought in from [facility] with worsening shortness of breath.
Cardiology is consulted with concern for acute heart failure.
Patient has reportedly been less responsive today and appeared drowsy at the time of my exam
ABG here shows respiratory acidosis, currently being treated with BiPAP
Suspect acute CHF in addition to COPD
ProBNP greater than 13,000 here
Agree with IV Lasix and attempt to improve his respiratory status
Follow daily weights, I's/O's, renal function/electrolytes
Troponin is mildly elevated as well
Not reporting chest discomfort and ischemic changes seen on ECG
Suspect this is non-CT troponin elevation in the setting of decompensated heart failure
Would trend to peak
Rest per Krys Ross
Original Note:
Consultation
Consultation Request
Date/Time Consultation Requested: 08/08/24
Date/Time Consultation Performed: 08/08/24
Requesting Provider: Dr. Moreno
Performing Provider: Dr. Warren
Reason for Consultation: Acute HF, elevated Troponin
Medical History
-
History of Present Illness:
Patient came to [facility] today with increased SOB and decreased responsiveness and cardiology is consulted for possible acute HF. Patient lives at [facility] as a long-term resident, but was able to make it to an outpatient cardiology
office visit on 07/31/24 and appeared to be doing well at that time. Patient was asked to continue Lasix 40 mg PO BID which is handled by his [facility] staff. It's not clear what has happened in the last 8 days because patient is not answering
in-depth questions. [facility] told [facility] that patient had a cough and his pulse ox was low so they called 911. EMS told the ER staff that when they arrived the patient had a low pulse ox and was minimally responsive, but that patient improved with
NRB. CXR in the ER looks like acute HF. Troponin also elevated, but no reports of chest pain. COVID and influenza negative.
PMH:
Chronic HFpEF
CAD with CT s/p 3 mm Synergy BENNY to mid to mid-distal LAD and residual 50-60% RCA lesion by cath 12/2021
Severe COPD
Chronic hypoxic respiratory failure on 3 L NC continuously
Hypertension
Hyperlipidemia
Obesity
Suspected obstructive sleep apnea
Prostate cancer
History of hematuria
Anxiety
Former smoker
Possible bipolar disorder
Past Medical History
Past Medical History: Other (in HPI)
Past Surgical History: Tonsilectomy and Other (BENNY x 2 mid-distal LAD 01/21/22, colonoscopy)
Social History
Tobacco: Former Smoker
Alcohol: None
Drug: None
Personal: Single
Living: Intermediate (was living in [facility] for a while and now at [facility], used to live in a 2nd floor apartment with his sister)
Family History
Family History: Cancer, Hypertension and Other (dementia)
Allergies / Home Medications
Allergy/AdvReac Type Severity Reaction Status Date / Time
No Known Allergies Allergy Verified 08/08/24 11:15
�Medication �Instructions �Recorded �Confirmed �Type
amlodipine 5 mg tablet 5 mg PO DAILY 30 days #30 tabs 04/01/22 08/08/24 Rx
aspirin 81 mg chewable tablet 81 mg PO DAILY Heart 04/01/22 08/08/24 Rx
disease/condition 30 days #30 tabs
metoprolol tartrate 25 mg tablet 25 mg PO BID Heart 04/01/22 08/08/24 Rx
disease/condition 30 days #60 tabs
bicalutamide 50 mg tablet 50 mg PO DAILY Cancer 03/31/23 08/08/24 History
budesonide 0.5 mg/2 mL suspension 0.5 mg (2 mL) inhalation R BID #60 04/15/23 08/08/24 Rx
for nebulization mL
ipratropium 0.5 mg-albuterol 3 mg 3 ml inhalation R BID #90 mL 04/15/23 08/08/24 Rx
(2.5 mg base)/3 mL nebulization
soln
potassium chloride 10 mEq 10 meq PO DAILY #30 tabs 04/15/23 08/08/24 Rx
tablet,extended release(part/cryst)
acetaminophen 325 mg tablet 650 mg PO Q4HPRN PRN mild 01/31/24 08/08/24 History
pain/fever
bisacodyl 10 mg rectal suppository 10 mg IN DAILYPRN PRN if mom is 01/31/24 08/08/24 History
ineffective after 24h
magnesium hydroxide 400 mg/5 mL 30 ml PO DAILYPRN PRN constipation 01/31/24 08/08/24 History
oral suspension (Milk of Magnesia)
sertraline 50 mg tablet 100 mg PO DAILY 01/31/24 08/08/24 History
sodium phosphates 19 gram-7 118 ml IN DAILYPRN PRN 01/31/24 08/08/24 History
gram/118 mL enema (Enema) constipation if dulcolax ineff
tiotropium bromide 2.5 2 puff inhalation R DAILY 01/31/24 08/08/24 History
mcg/actuation mist for inhalation
furosemide 40 mg tablet 40 mg PO BID 03/23/24 08/08/24 History
atorvastatin 20 mg tablet 20 mg PO HS 08/08/24 08/08/24 History
Review of Systems
-
History Source: Patient and Transfer Record
All other systems: Negative unless noted
Physical Exam
Vital Signs
Temp Pulse Resp BP Pulse Ox
98.7 F 65 20 108/56 89
08/08/24 11:10 08/08/24 13:45 08/08/24 13:45 08/08/24 13:30 08/08/24 13:30
GEN: NAD. Awake and alert
HEENT: EOMI, MMM
LUNGS: Wearing BiPAP. Diffuse rales and rhonchi
CV: Reg, S1/S2, no murmur
ABD: soft, BS+, NT, ND
EXT: +2 B/L LE edema. No clubbing, cyanosis or lesions B/L
NEURO: Gross non-focal
SKIN: Warm, dry and pink. No rash
Lab Results
08/08/24 11:09
08/08/24 11:09
Troponin I 0.234 ng/ml H* 08/08/24 11:09
Bfx-M-Zazbodisery Pept [id number] pg/ml 08/08/24 11:09
Impression / Plan
-
PCP: Dr. Leiva
Primary Principal Biostatistician: Dr. Kelley
Impression:
Admitted with acute on chronic hypoxic respiratory failure
placed on iPAP 08/08/24
Possible PNA
Elevated Troponin
Acute on chronic HFpEF
CAD with CT s/p 3 mm Synergy BENNY to mid to mid-distal LAD and residual 50-60% RCA lesion by cath 12/2021
Severe COPD
Chronic hypoxic respiratory failure on 3 L NC continuously
Hypertension
Hyperlipidemia
Obesity
Suspected obstructive sleep apnea
Prostate cancer
History of hematuria
Anxiety
Former smoker
Possible bipolar disorder
ECHO 01/18/22: EF 65 to 70%, hyperdynamic LV function, mild concentric LVH, stage I diastolic dysfunction, enlarged RV, mild TR, PAP 65 mmHg, moderate pulmonary hypertension
Echo 04/09/24: EF 68%, mild LVH, severe PHTN with PAP 67 mmHg, compared to echo 03/2023 no significant change
Plan:
-Patient came to [facility] today with increased SOB and decreased responsiveness and cardiology is consulted for possible acute HF. Patient lives at [facility] as a long-term resident, but was able to make it to an outpatient cardiology
office visit on 07/31/24 and appeared to be doing well at that time. Patient was asked to continue Lasix 40 mg PO BID which is handled by his [facility] staff. It's not clear what has happened in the last 8 days because patient is not answering
in-depth questions. [facility] that patient had a cough and his pulse ox was low so they called 911. EMS told the ER staff that when they arrived the patient had a low pulse ox and was minimally responsive, but that patient improved with
NRB. CXR in the ER looks like acute HF. Troponin also elevated, but no reports of chest pain. COVID and influenza negative.
-Patient with acute on chronic hypoxic respiratory failure and has improved with BiPAP. Patient is chronically on 3 L NC and during a previous HF admission in 03/2023 the patient was on high flow oxygen for almost a week and hospice was considered.
-Agree with Lasix 80 mg IV in the ER and changed admission orders to increase Lasix to 80 mg IV BID. Patient was taking Lasix 40 mg PO BID prior to admission.
-Follow Cre
-EF was 68% by echo 04/09/24. Not clear what might have precipitated volume overload.
-Patient was taking Lopressor 25 mg BID prior to admission and will consider transitioning to Toprol XL
-Patient is not chronically on KINDRA/ARB/ARNI, but was previously on lisinopril in 03/2022. Will investigate further, might have been an issue with hypotension.
-Troponin 0.234 initially. ECG reviewed by me and no acute ischemic changes.
-Trend Troponin
-Check echo
-Will manage as a nonischemic myocardial injury Troponin elevation due to acute HF.
[2024-08-08] MEDS: KCL 270 MEQ IV (14:59)
[2024-08-08 15:00] LABS: COVID-19 Antigen Negative (Negative)
[2024-08-08 15:10] LABS: B.E. 13.5 mmol/L; O2 Saturation % 93.8 % (94-98); PO2 68 mmHg (83-108); pH 7.32 (7.35-7.45)
[2024-08-08 15:15] LABS: PCO2 84 mmHg (35-48)
[2024-08-08 15:16] LABS: HCO3 43.3 mmol/L (21-28)
[2024-08-08 15:26] LABS: Procalcitonin 0.06 ng/ml (0.0-0.25)
--- NOTE | 2024-08-08 18:30 | PTCARENOTE ---
Pt received from ED via stretcher. Remains on Bipap with VSS. Responds to name. Unable to answer admission questions. K rider infusing at this time. Bed alarm in place for safety.
[2024-08-08] MEDS: PULMICORT 0.5 MG INH (19:59)
[2024-08-08] MEDS: DUONEB 3 ML INH (19:59)
[2024-08-08 20:40] LABS: B.E. 16.2 mmol/L; O2 Saturation % 98.5 % (94-98); PO2 109 mmHg (83-108); pH 7.32 (7.35-7.45)
[2024-08-08 20:41] LABS: PCO2 90 mmHg (35-48)
[2024-08-08 20:42] LABS: HCO3 46.4 mmol/L (21-28)
[2024-08-08] MEDS: LOVENOX 40 MG SC (20:46)
[2024-08-08] MEDS: LOPRESSOR PO (21:09)
--- NOTE | 2024-08-08 21:18 | PTCARENOTE ---
Addendum entered by Sally Avelar RN 08/09/24 06:01:
Pt maintained better cognitive mentation throughout [facility], able to answer questions appropriately and even getting a little annoyed with this RN for asking same questions.
Addendum entered by Sally Avelar RN 08/08/24 22:20:
BiPAP settings changed, Decadron given. Night JACQUARD TWINE POLISHER OPERATOR communication with Dr and ICU JACQUARD TWINE POLISHER OPERATOR, Pt will remain in IMU for observation of mentation at this time. Pt mentation showing improvement at this time.
Original Note:
Assumed care of Pt from Day RN. Pt currently on BiPAP. Pt drowsy will arouse to name answer a question or two and fall back asleep. Pt repeat ABG resulting critical, night JACQUARD TWINE POLISHER OPERATOR made aware and at bedside with RT.
--- NOTE | 2024-08-08 21:24 | W.PN.UPDATE ---
Addendum entered and electronically signed by Gerri Moreno MD 08/08/24 21:38:
per house PRODUCT SUPPORT CONSULTANT patient with improved mentation
will adjust BiPAP settings and continue to monitor overnight with low threshold for intubation if patient becomes more lethargic
Original Note:
Update Note
Progress Note Update
patient more lethargic this evening with worsening hypercarbic respiratory failure
decision made to intubate
House PRODUCT SUPPORT CONSULTANT updated sister
-transfer to ICU
-Field Professional updated
-will start IV steroids, continue duonebs and Lasix
[2024-08-08] MEDS: DECADRON 4 MG IV (21:50)
[2024-08-08 21:54] LABS: Troponin I 0.569 ng/ml
--- NOTE | 2024-08-08 22:01 | W.PN.UPDATE ---
Update Note
Progress Note Update
Per RN, patient w/worsening mentation, ABG shows worsening hypercarbic respiratory failure. 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 Discussed with patient possible need to intubate, patient unable
to make decision. Called primary contact, patient's sister, Camila Styles, reviewed patient status and events of admission. Patient's sister is agreeable to intubation if necessary. Re-evaluated patient, bipap setting increased, mentation is
improved, will hold off on intubation at this time. Will continue to monitor overnight. Discussed obtaining ABG with ICU provider, will defer at this time, however, if mentation declines or patient becomes obtunded, will obtain ABG. Low threshold
for intubation if patient becomes more lethargic.
[2024-08-08] MEDS: LIPITOR PO (23:06)
[2024-08-09] VITALS (27 sets, daily range): BP systolic 103–144; BP diastolic 40–106; PULSE 2–66; BMI 30.3
[2024-08-09] MEDS: DECADRON 4 MG IV ×4 (04:32→20:30)
[2024-08-09 05:19] LABS: Hematocrit 42.5 % (39.0-52.0); Hemoglobin 12.6 g/dL (13.0-18.0); Mean Corp Hgb Conc. 29.6 g/dL (33.0-37.0); Mean Corpuscular Hgb 26.6 pg (27.0-31.0); Mean Corpuscular Volume 89.9 fL (80.0-94.0); Mean Platelet Volume 9.4 fL (7.4-10.4); Platelet Count 289 10^3/uL (130-400); Red Blood Cell Count 4.73 10^6/uL (4.70-6.10); White Blood Cell Count 10.7 10^3/uL (4.8-10.8)
[2024-08-09 05:34] LABS: Blood Urea Nitrogen 25 mg/dl (9-20); Calcium 8.4 mg/dl (8.4-10.2); Chloride 94 mmol/L (98-107); Estimated Creatinine Clearance 106 ml/min; Glucose 122 mg/dl (70-99); HDL Cholesterol 27 mg/dl; LDL Cholesterol, Calculated 47 mg/dl; Magnesium 2.3 mg/dl (1.6-2.3); Potassium 3.8 mmol/L (3.5-5.1); Sodium 145 mmol/L (135-145); Total Cholesterol 86 mg/dl (50-199); Triglyceride 61 mg/dl (10-149); Very Low Density Lipoprotein 12 mg/dl (0-30); eGFR > 60.00
[2024-08-09 05:55] LABS: Carbon Dioxide 38 mmol/L (22-30)
[2024-08-09] MEDS: DUONEB 3 ML INH ×4 (07:22→20:16)
[2024-08-09] MEDS: PULMICORT 0.5 MG INH ×2 (07:23→20:15)
[2024-08-09] MEDS: CASODEX PO (07:51)
[2024-08-09] MEDS: KCL PO (07:51)
[2024-08-09] MEDS: LOPRESSOR PO (07:51)
[2024-08-09] MEDS: NORVASC PO (07:52)
[2024-08-09] MEDS: ZOLOFT PO (07:52)
[2024-08-09] MEDS: LOW STRENGTH ASPIRIN PO (07:52)
[2024-08-09] MEDS: DESENEX/MITRAZOL/ZEASORB 1 APPLIC TOPICAL ×2 (08:31→20:30)
--- NOTE | 2024-08-09 09:01 | PTCARENOTE ---
Udpated MD on pt's status this AM. remains on bipap, arousable but only briefly. BP trending down, currently 105/52. Notified MD pt ordered 80mg IV lasix. MD will review meds on rounds shortly. repeat ABG drawn. Sinus swathi on tele with HR 55.
remains NPO. Per ED pt had no gag reflex, pt also minially arousable. not yet stable enough for speech evaluation.
[2024-08-09 09:09] LABS: B.E. 17.8 mmol/L; O2 Saturation % 94.5 % (94-98); PO2 69 mmHg (83-108); pH 7.34 (7.35-7.45)
[2024-08-09 09:11] LABS: PCO2 89 mmHg (35-48)
[2024-08-09] MEDS: LASIX 80 MG IV ×2 (09:23→16:55)
--- NOTE | 2024-08-09 09:28 | PTCARENOTE ---
Dr. Sam from cards at bedside. OK to give 80mg IV lasix. updated Dr. Patton with this info plus new ABG results
--- NOTE | 2024-08-09 10:50 | W.PN.HOSP.TC ---
Today's Communication/Plan
-
Continue BiPAP until ABGs better
Add steroids and doxycycline
Continue Lasix
Wean BiPAP as tolerated
Encourage patient to get an outpatient sleep study and go on CPAP
Assessment / Plan
Assessment / Plan
73-year-old male with cough and shortness of breath. Patient is from [facility] he was hypoxic and placed on BiPAP in the ER
Patient wakes up and able to communicate
Cardiovascular system S1-S2 appreciated
Chest few short wheezes noted
Abdomen soft and nontender
Right yu with discoloration
No pedal edema
# Acute on chronic hypoxic/acute on chronic hypercapnic respiratory failure patient was obtunded in the ER
On 3 L of oxygen as outpatient
Chest x-ray reviewed by me-no infiltrates
Continue BiPAP
ABG reviewed still has CO2 retention and acute respiratory acidosis
Treat heart failure and COPD exacerbation
Procalcitonin not elevated
COVID and influenza screen negative
Blood cultures pending
Pulmonary consultation
# Acute on chronic HFpEF
Echo 04/09/2024-EF 68%, mild LVH, severe pulmonary hypertension with pulmonary artery pressure 67 mmHg
Continue metoprolol when patient can take p.o.
Continue IV Lasix
Not on KINDRA/ARB/ARNI
Repeat echo
# Elevated troponin-likely nonischemic myocardial injury secondary to above
# COPD exacerbation-add steroids, nebulizer treatments. Also add doxycycline
# Hypokalemia-resolved
# Coronary disease with history of VT and drug-eluting stents to LAD. Residual RCA lesion by cath 2021
# Hypertension-continue amlodipine, metoprolol when can take p.o.
# Hyperlipidemia/atherosclerosis-continue statin when he can take p.o.
# Anxiety/Bipolar disorder-continue sertraline when he can take p.o.
# Obesity
# Suspected sleep apnea- not on PAP as OP as pt does not want.
# Pulmonary hypertension
# History of prostate cancer and h/o hematuria-on bicalutamide. Continue with can take p.o.
# Ex-smoker
# Full code
D/W RN at bed side
D/W patient's sister and updated. I also discussed that unless he wears a PAP machine at night he is at risk for hospitalizations in future.
Time spent over 50 min
Anticipated Discharge: > 48 hours
Subjective/Interval History
-
Date of Service: August 09, 2024
Objective Data
-
Labs:
Laboratory Results
08/09/24 08/09/24 08/09/24
04:58 05:09 08:47
WBC 10.7
Hgb 12.6 L
Hct 42.5
Plt Count 289
HCO3 48.0 H*
Sodium 145
Potassium 3.8
Chloride 94 L
Carbon Dioxide 38 H
BUN 25 H
Creatinine 0.8
Glucose 122 H
Calcium 8.4
Vital Signs:
Vital Signs
Temp Pulse Resp BP Pulse Ox
97.0 F 62 20 105/52 92
08/09/24 07:23 08/09/24 09:23 08/09/24 09:00 08/09/24 09:23 08/09/24 09:10
I&O
08/08/24 08/09/24 08/10/24
06:59 06:59 06:59
Output Total 550 / 550
Balance -550 / -550
[2024-08-09] MEDS: VIBRAMYCIN 260 MG IV (12:08)
--- NOTE | 2024-08-09 12:08 | CON.PUL ---
Consultation
Consultation Request
Date/Time Consultation Requested: 08/09/24
Date/Time Consultation Performed: 08/09/24
Performing Provider: Nicolette
Reason for Consultation: SOB/hypoxemia
Medical History
-
History of Present Illness:
Patient is a 73 year old M with previous history of severe COPD/emphysema, chronic hypoxemia, obesity, suspected RICARDO/OHS (refused testing), noncompliance presenting to ER with cough and hypoxemia. Presents from [facility], with hypoxemia,
placed on 8-10L NC with sats in low 90s. He has a history of baseline use of 4L but would intermittently refused to use it. Last seen in our office in February, has history of severe COPD. He does not follow up recommendations for testing/treatment.
ABG showing worsening CO2 retention in 80s, prior testing last admission in 50s. He does not feel he has any issue with his lungs, he is in 'perfect health.'
He does not wish to change his code status and does not have family/medical POA designation. He feels he does not need it.
He is not ready for hospice despite his level of noncompliance.
Past Medical History
Past Medical History: Other (see list below)
Social History
Tobacco: Smoker
Alcohol: None
Drug: None
Family History
Family History: Reviewed & Not Pertinent
Allergies / Home Medications
Allergies
Allergy/AdvReac Type Severity Reaction Status Date / Time
No Known Allergies Allergy Verified 08/08/24 11:15
Home Medications
�Medication �Instructions �Recorded �Confirmed �Last Taken �Type
amlodipine 5 mg tablet 5 mg PO DAILY 30 days #30 tabs 04/01/22 08/08/24 Unknown Rx
aspirin 81 mg chewable tablet 81 mg PO DAILY Heart 04/01/22 08/08/24 Unknown Rx
disease/condition 30 days #30 tabs
metoprolol tartrate 25 mg tablet 25 mg PO BID Heart 04/01/22 08/08/24 Unknown Rx
disease/condition 30 days #60 tabs
bicalutamide 50 mg tablet 50 mg PO DAILY Cancer 03/31/23 08/08/24 Unknown History
budesonide 0.5 mg/2 mL suspension 0.5 mg (2 mL) inhalation R BID #60 04/15/23 08/08/24 Unknown Rx
for nebulization mL
potassium chloride 10 mEq 10 meq PO DAILY #30 tabs 04/15/23 08/08/24 Unknown Rx
tablet,extended release(part/cryst)
acetaminophen 325 mg tablet 650 mg PO Q4HPRN PRN mild 01/31/24 08/08/24 Unknown History
pain/fever
bisacodyl 10 mg rectal suppository 10 mg AL DAILYPRN PRN if mom is 01/31/24 08/08/24 Unknown History
ineffective after 24h
magnesium hydroxide 400 mg/5 mL 30 ml PO DAILYPRN PRN constipation 01/31/24 08/08/24 Unknown History
oral suspension (Milk of Magnesia)
sertraline 50 mg tablet 100 mg PO DAILY Mental 01/31/24 08/08/24 Unknown History
Health/Anxiety
sodium phosphates 19 gram-7 118 ml AL DAILYPRN PRN 01/31/24 08/08/24 Unknown History
gram/118 mL enema (Enema) constipation if dulcolax ineff
tiotropium bromide 2.5 2 puff inhalation R DAILY 01/31/24 08/08/24 Unknown History
mcg/actuation mist for inhalation Lung/Breathing Issues
furosemide 40 mg tablet 40 mg PO BID Fluid 03/23/24 08/08/24 Unknown History
Retention/Swelling
atorvastatin 20 mg tablet 20 mg PO HS High Cholesterol 08/08/24 08/08/24 Unknown History
ipratropium 0.5 mg-albuterol 3 mg 3 ml inhalation R BID 08/09/24 08/08/24 Unknown History
(2.5 mg base)/3 mL nebulization Lung/Breathing Issues
soln
Review of Systems
-
History Source: Patient
All other systems: Negative unless noted
Vitals / Labs / Diagnostic Testing
Vital Signs
Temp Pulse Resp BP Pulse Ox
97.0 F 79 24 105/52 90
08/09/24 07:23 08/09/24 11:46 08/09/24 11:46 08/09/24 09:23 08/09/24 11:46
Lab Data
08/09/24 05:09
08/09/24 04:58
Laboratory Results
08/08/24 08/08/24 08/09/24
14:55 20:30 08:47
pH 7.32 L 7.32 L 7.34 L
pCO2 84 H* 90 H* 89 H*
pO2 68 L 109 H 69 L
HCO3 43.3 H* 46.4 H* 48.0 H*
O2 Delivery Level
Microbiology
08/08/24 14:17 Nasal Swab Influenza Types A & B (NICOLE) - Final
Negative for Influenza A & B, NAAT
Negative results must be combined with clinical observations
and patient history.
Nucleic Acid Amplification test (NAAT)performed on the
[employer] platform.
Diagnostic Testing:
Physical Exam
-
HEENT: Normocephalic, Anicteric, Moist Mucous Membranes and Other (poor dentititon)
Cardiovascular: S1/S2 and Regular Rhythm
Respiratory: Rales and Non-Labored Respirations
GI: Soft, Non Distended and Non Tender
Neurology: Awake, Alert and No Motor Deficits
Skin: Warm and Dry
General: Comfortable and Other (NAD, obese, chronically ill appearing)
Assessment
-
Patient is a 73 year old M with previous history of severe COPD/emphysema, chronic hypoxemia, obesity, suspected RICARDO/OHS (refused testing), noncompliance presenting to ER with cough and hypoxemia. Presents from [facility], with hypoxemia,
placed on 8-10L NC with sats in low 90s. He has a history of baseline use of 4L but would intermittently refused to use it. Last seen in our office in February, has history of severe COPD. He does not follow up recommendations for testing/treatment.
Acute on chronic hypoxic and hypercarbic respiratory failure
ABG , prior
Acute HF exacerbation, proBNP 99013
Acute on chronic SOB/cough
Medical noncompliance
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
Coronary disease with history of LAD stent and elevated filling pressures per catheterization December 2021
Noncompliance, refusal of treatment
Severe COPD/emphysema, GOLD IV
FEV1 30%
Follows with Dr. Marte in OP last seen 02/2024
Chronic hypoxemia, on 4L
Severe pulm hypertension, PA pressure 70
RV dysfunction/dilation per echo 04/01/23
Suspect RICARDO/OHS, never had sleep study/declined testing
Prostate cancer
Incomplete right bundle branch block
Obesity
Prot mirabilis UTI
Lower extremity cellulitis
Plan
O2 protocol--maintained on 6L NC
Has needed around 4L in office in last visit, but has been noncompliant with use
Wean as tolerated
Adm ABG with severe respiratory acidosis --worsened compared to prior
Was placed on BIPAP overnight, but now stating he is not willing to use it
Stated he has no intention to continue BPAP as outpatient: we have discussed hospice but he does not believe he is ill
He does not feel he has any issue with his lungs, he is in 'perfect health.'
He does not wish to change his code status and does not have family/medical POA designation (he says he has no children or siblings, despite sister is contact). He feels he does not need anyone.
He is not ready for hospice despite his level of noncompliance.
CHF noted on imaging and proBNP
ECHO in past showing severe PH, DHF, RV dysfunction
Diuresis as tolerated
Continue budesonide
DNs prn
Resume umeclidinium/vilanterol (anoro ellipta) upon d/c
No AECOPD--no wheezing on exam
Would stop IV steroids
DVT prophylaxis: Lovenox
Suspect that patient has obesity hypoventilation syndrome/RICARDO combined with severe obstructive lung disease based on outpatient records
He has refused therapy in the past including oxygen, treatment for sleep apnea, inhaler therapy
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
Noted full code status
Will benefit from [facility] discussion with family, given his multiple comorbidities and persistent medical noncompliance. He may be at increased risk for prolonged mechanical ventilation and associated complications. In my humble opinion he should be
DNR/DNI.
This was discussed with him and care team on prior visits
Tried to discuss all above with Mr Styles again today, unfortunately he has very poor insight
Im not sure what more we can offer him
Will follow
Diagnostic Data
CXR 08/08/24- Cardiomegaly. Radiographic findings felt to most likely represent pulmonary edema.
CXR 03-31-23 (portable) c/w 01-16-22 (PA/lat): Old films with no infiltrates. Current film slightly lordotic/rotated. R basilar linear atelectasis, mild pulm vasc congestion
PET CT 01-17-23 IMPRESSION: [Marked uptake of activity in the prostate gland suspicious for malignancy.] Extension of malignancy to involve the seminal vesicles cannot be excluded on the basis of this study. Coronary artery calcifications and
sigmoid diverticulosis. Please note, evaluation may be limited with possible false negative results in light of the large volume of activity seen in the prostate gland.
R leg doppler 03-31-23: negative
TTE 04-01-23 CONCLUSIONS: Normal left ventricular chamber size. Normal left ventricular systolic function. Left ventricular ejection fraction is 55% by visual estimate. Normal regional wall motion. Mild concentric left ventricular hypertrophy. Stage
II diastolic dysfunction suggestive of abnormal relaxation and increased filling pressures. Moderately dilated right ventricle with moderately reduced systolic function. Dilated right atrium. Mild to moderate tricuspid regurgitation. Estimated
pulmonary artery pressure of 70 mmHg assuming a right atrial pressure of 15 mmHg. Compared to prior study dated 01/18/22 which was directly reviewed, LV function was previously hyperdynamic, otherwise no significant change.
Total time spent on this consultation __75__ minutes which includes review of history, physical exam, medications, laboratory data, personal review of imaging, extensive review of outpatient records, discussion with care team and respiratory therapy.
--- NOTE | 2024-08-09 14:10 | W.PN.CARDCBS ---
Addendum entered and electronically signed by Milton Warren MD 08/09/24 17:15:
I saw and examined the patient on morning rounds.
The Sorting Supervisor's note was reviewed and I agree with the note.
Comment: Briefly, 73-year-old man past medical history of heart failure preserved ejection fraction, CAD with multiple stents in the past and severe COPD on 3 L home O2 who [facility] with worsening shortness of breath.
Cardiology is consulted with concern for acute heart failure.
Patient more alert and responsive today
ABG here shows persistent respiratory acidosis, currently being treated with BiPAP
Suspect acute CHF in addition to COPD
ProBNP greater than 13,000 here
Agree with IV Lasix in an attempt to improve his respiratory status
Follow daily weights, I's/O's, renal function/electrolytes
Troponin is mildly elevated
Trend is relatively flat
No SWMA on echo
Suspect this is non-IL troponin elevation in the setting of decompensated heart failure
Original Note:
Today's Communication / Plan
-
Remains on BiPAP
Probably diuresing
Impression / Plan
-
PCP: Dr. Leiva
Primary Filters Assembler: Dr. Kelley
Impression:
Admitted with acute on chronic hypoxic respiratory failure
placed on iPAP 08/08/24
Possible PNA
Elevated Troponin
Acute on chronic HFpEF
CAD with IL s/p 3 mm Synergy BENNY to mid to mid-distal LAD and residual 50-60% RCA lesion by cath 12/2021
Severe COPD
Chronic hypoxic respiratory failure on 3 L NC continuously
Hypertension
Hyperlipidemia
Obesity
Suspected obstructive sleep apnea
Prostate cancer
History of hematuria
Anxiety
Former smoker
Possible bipolar disorder
ECHO 01/18/22: EF 65 to 70%, hyperdynamic LV function, mild concentric LVH, stage I diastolic dysfunction, enlarged RV, mild TR, PAP 65 mmHg, moderate pulmonary hypertension
Echo 04/09/24: EF 68%, mild LVH, severe PHTN with PAP 67 mmHg, compared to echo 03/2023 no significant change
Echo 08/09/24: Study pending
Plan:
-Overnight events noted and patient was near intubation, but improved on BiPAP which has been continued. Patient previously required high flow during a prolonged admission 03/2023 and hospice was considered at that time, but never pursued because
patient improved. Patient has been evaluated by psychiatry in the past and they were not able to complete the evaluation due to his unwillingness to talk to them.
-From a cardiac standpoint, patient weight is down, but it's comparing ER stretcher natty weight to a bed scale weight and I&Os are negative without any intake being reported.
-Cont Lasix 80 mg IV BID. Patient was taking Lasix 40 mg PO BID prior to admission.
-Cre stable at 0.8 on labs 08/09/24 reviewed by me
-EF was 68% by echo 04/09/24. Repeat echo pending.
-Patient was taking Lopressor 25 mg BID, will transition to Toprol XL 25 mg daily once taking POs again.
-Patient is not chronically on KINDRA/ARB/ARNI, but was previously on lisinopril in 03/2022, but it was stopped due to hypotension.
-Troponin 0.234 initially and then peaked at 0.569. ECG reviewed by me and no acute ischemic changes. Check echo, but will manage as a nonischemic myocardial injury Troponin elevation.
-Patient with chronic hypoxic respiratory failure and chronically on 3 L NC
HPI: Patient came to [facility] today with increased SOB and decreased responsiveness and cardiology is consulted for possible acute HF. Patient lives at [facility] as a long-term resident, but was able to make it to an outpatient
cardiology office visit on 07/31/24 and appeared to be doing well at that time. Patient was asked to continue Lasix 40 mg PO BID which is handled by [facility] staff. It's not clear what has happened in the last 8 days because patient is not
answering in-depth questions. shelter told EMS that patient had a cough and his pulse ox was low so they called 911. EMS told the ER staff that when they arrived the patient had a low pulse ox and was minimally responsive, but that patient
improved with NRB. CXR in the ER looks like acute HF. Troponin also elevated, but no reports of chest pain. COVID and influenza negative.
Progress Note - Filters Assembler
Subjective
Date of Service: August 09, 2024
He doesn't answer questions
Objective
Labs:
08/09/24 05:09
08/09/24 04:58
Labs
Hgb 12.6 g/dL (13.0-18.0) L 08/09/24 05:09
Hct 42.5 % (39.0-52.0) 08/09/24 05:09
Plt Count 289 10^3/uL (130-400) 08/09/24 05:09
Sodium 145 mmol/L (135-145) 08/09/24 04:58
Potassium 3.8 mmol/L (3.5-5.1) 08/09/24 04:58
BUN 25 mg/dl (9-20) H 08/09/24 04:58
Creatinine 0.8 mg/dL (0.7-1.3) 08/09/24 04:58
Glucose 122 mg/dl (70-99) H 08/09/24 04:58
Troponins
08/08/24 08/08/24 08/09/24
11:09 21:19 00:28
Troponin I 0.234 H* 0.569 H* Cancelled
08/09/24
04:57
Troponin I 0.410 H* D
Vital Signs and I&O:
Vital Signs
Temp Pulse Resp BP Pulse Ox
97.8 F 79 24 105/52 90
08/09/24 11:47 08/09/24 11:46 08/09/24 11:46 08/09/24 09:23 08/09/24 11:46
Vital Signs
Temp Pulse Resp BP Pulse Ox
97.8 F 79 24 105/52 90
08/09/24 11:47 08/09/24 11:46 08/09/24 11:46 08/09/24 09:23 08/09/24 11:46
Intake & Output
08/07/24 08/08/24 08/09/24 08/10/24
06:59 06:59 06:59 06:59
Output Total 550 / 550 550 / 550
Balance -550 / -550 -550 / -550
Physical Exam
Physical Exam
GEN: NAD. Awake and alert
HEENT: EOMI
LUNGS: Wearing BiPAP.
CV: SR on tele
ABD: ND
EXT: +2 B/L LE edema.
NEURO: Gross non-focal
SKIN: No rash
--- NOTE | 2024-08-09 14:18 | CM ---
Patient seen at bedside. Patient is from [facility] and per Demetrio Galarza patient is LTC there. Patient has been independent of ADL's per Michell and patient does not have POA or Guardian. Patient plan is to return to SNF when medically
appropriate. Patient for further assessments with PT/OT. CM will continue to follow for discharge planning needs.
Plan; return to SNF when medically appropriate.
--- NOTE | 2024-08-09 14:50 | PTOTSP ---
Speech Language Pathology
Pt seen for clinical bedside swallow evaluation. Eating lunch upon arrival. Seen with regular solids and thin liquids. Slightly prolonged mastication with mild diffuse oral residue noted, which pt was able to clear with a liquid wash. No overt
signs of aspiration. Pt impulsive when eating and was uncooperative with attempts at oral motor examination or any questions whatsoever. Continually stating he has no trouble chewing or swallowing and had no health problems before being admitted
here.
Recommend:
(1) Regular solids (easy to chew) and thin liquids
(2) Aspiration precautions: slow rate, sit upright, ensure oral cavity clear post P.O. intake, supervision with P.O.
(3) Meds as tolerated
(4) CHIEF OF ANESTHESIOLOGY to sign off
[2024-08-09] MEDS: LOVENOX 40 MG SC (17:01)
[2024-08-09] MEDS: LIPITOR 20 MG PO (20:30)
[2024-08-09] MEDS: LOPRESSOR 25 MG PO (20:30)
[2024-08-10] VITALS (16 sets, daily range): BP systolic 97–136; BP diastolic 41–78; PULSE 2–68; O2SAT 87; BMI 30.1
[2024-08-10] MEDS: VIBRAMYCIN 260 MG IV ×3 (01:03→23:42)
[2024-08-10] MEDS: DECADRON 4 MG IV ×2 (04:49→10:24)
[2024-08-10 05:36] LABS: Hematocrit 41.4 % (39.0-52.0); Hemoglobin 12.3 g/dL (13.0-18.0); Mean Corp Hgb Conc. 29.7 g/dL (33.0-37.0); Mean Corpuscular Hgb 26.4 pg (27.0-31.0); Mean Corpuscular Volume 88.8 fL (80.0-94.0); Mean Platelet Volume 10.9 fL (7.4-10.4); Platelet Count 245 10^3/uL (130-400); Red Blood Cell Count 4.66 10^6/uL (4.70-6.10); Red Cell Dist. Width 15.1 % (11.5-14.5); White Blood Cell Count 13.5 10^3/uL (4.8-10.8)
--- NOTE | 2024-08-10 06:49 | PTCARENOTE ---
Caring for patient overnight. aaox3 but does not make sense at times and seems confused. Not aware of his current state. Remains on 10LMF. Wore bipap all night, slept throughout the night. Arousable to verbal and remains aa0ox3. SR/SB on monitor.
VSS. Encouraged to turn. Bedrest. IVABX IV steroids. BA on. NO other issues overnight, will monitor.
[2024-08-10] MEDS: DUONEB 3 ML INH ×4 (07:40→19:56)
[2024-08-10] MEDS: PULMICORT 0.5 MG INH ×2 (07:40→19:56)
--- NOTE | 2024-08-10 08:30 | PN.CDI ---
CDI
- -
CDI:
Physician Documentation Request
Admit Date: 08/08/24 14:46
Dear Doctor Esteban,
Please review the following and provide your response in the progress notes.
Clinical Indicators:
Selected Entries
08/08/24
18:17
Pressure injury stage [Present on admission Right Buttock] Stage 2
Physician documentation of the type and location of wounds is required for compliant documentation. Based on the above clinical findings and your assessment, please provide the following in your progress note:
Location of the ulcer/wound, including laterality.
Type (etiology) of ulcer/wound:
- Diabetic ulcer
- Pressure (decubitus) ulcer
- Other(please specify)
For a pressure ulcer, please also include the stage* of the ulcer:
- Stage 1 - Skin intact, non-blanchable redness
- Stage 2 - Partial thickness loss of dermis, includes intact or open blister
- Stage 3 - Full thickness tissue not including bone, tendon or muscle
- Stage 4 - Full thickness tissue loss, including exposed bone, tendon or muscle
- Unstageable - Full thickness loss in which the base of the ulcer is covered by slough (yellow, silverio, perez, green or brown) and/or eschar (silverio, brown or black) in the wound bed.
Use of terms such as suspected, likely, concern for, or probable (associated with a specific diagnosis that is being evaluated, monitored, or treated as if it exists) are acceptable and can be coded in the inpatient setting, when documented at the
time of discharge.
Thank you,
Mary Balderas RN BSN CCDS
CDI Specialist
please contact via tiger text
Please use your independent medical judgment in providing your response.
*Source: National Pressure Ulcer Advisory Panel (NPUAP)
[2024-08-10] MEDS: LASIX 80 MG IV ×2 (08:34→17:02)
[2024-08-10] MEDS: KCL 10 MEQ PO (08:39)
[2024-08-10] MEDS: DESENEX/MITRAZOL/ZEASORB 1 APPLIC TOPICAL ×2 (08:39→20:26)
[2024-08-10] MEDS: LOPRESSOR 25 MG PO ×2 (08:40→20:25)
[2024-08-10] MEDS: ZOLOFT 100 MG PO (08:40)
[2024-08-10] MEDS: LOW STRENGTH ASPIRIN 81 MG PO (08:40)
[2024-08-10] MEDS: NORVASC 5 MG PO (08:40)
[2024-08-10] MEDS: CASODEX 50 MG PO (08:40)
[2024-08-10 09:57] LABS: B.E. 21.3 mmol/L; O2 Saturation % 94.8 % (94-98); PO2 67 mmHg (83-108); pH 7.43 (7.35-7.45)
[2024-08-10 10:04] LABS: HCO3 49.8 mmol/L (21-28); PCO2 75 mmHg (35-48)
--- NOTE | 2024-08-10 10:13 | W.PN.CARDCBS ---
Today's Communication / Plan
-
Continue IV diuresis for multifactorial respiratory failure
Monitor on telemetry
Possible transition to oral diuretic next 24-48 hours
Impression / Plan
-
PCP: Dr. Leiva
Primary Cellophane Bag Machine Operator: Dr. Kelley
Impression:
Admitted with acute on chronic hypoxic respiratory failure, multifactorial
placed on iPAP 08/08/24
Possible PNA
Elevated Troponin in the setting of HFPEF, COPD; no reported CP
- Troponin peak 0.569
Acute on chronic HFpEF
CAD with MN s/p 3 mm Synergy BENNY to mid to mid-distal LAD and residual 50-60% RCA lesion by cath 12/2021
Severe COPD
Chronic hypoxic respiratory failure on 3 L NC continuously
Hypertension
Hyperlipidemia
Obesity
Suspected obstructive sleep apnea
Prostate cancer
History of hematuria
Anxiety
Former smoker
Possible bipolar disorder
ECHO 01/18/22: EF 65 to 70%, hyperdynamic LV function, mild concentric LVH, stage I diastolic dysfunction, enlarged RV, mild TR, PAP 65 mmHg, moderate pulmonary hypertension
Echo 04/09/24: EF 68%, mild LVH, severe PHTN with PAP 67 mmHg, compared to echo 03/2023 no significant change
Echo 08/09/24: EF 55%, TDS, normal LV function, mild LVH, dilated RV with low normal RV sys pressure, mild TR with PASP 65-70 mmHg
Plan:
-Initial admission overnight events noted and patient was near intubation, but improved on BiPAP which has been continued. Patient previously required high flow during a prolonged admission 03/2023 and hospice was considered at that time, but never
pursued because patient improved. Patient has been evaluated by psychiatry in the past and they were not able to complete the evaluation due to his unwillingness to talk to them. Off Bipap, improving status
-From a cardiac standpoint, patient weight is down, but it's comparing ER stretcher natty weight to a bed scale weight and I&Os are negative without any intake being reported.
-Cont Lasix 80 mg IV BID. Patient was taking Lasix 40 mg PO BID prior to admission.
-Cre stable at 0.8 on labs 08/09/24 reviewed by me
-EF was 68% by echo 04/09/24. Repeat echo pending.
-Patient was taking Lopressor 25 mg BID, will transition to Toprol XL 25 mg daily once taking POs again.
-Patient is not chronically on KINDRA/ARB/ARNI, but was previously on lisinopril in 03/2022, but it was stopped due to hypotension.
-Troponin 0.234 initially and then peaked at 0.569. ECG reviewed by me and no acute ischemic changes. Will manage as a nonischemic myocardial injury Troponin elevation.
-Patient with chronic hypoxic respiratory failure and chronically on 3 L NC
HPI: Patient came to [facility] today with increased SOB and decreased responsiveness and cardiology is consulted for possible acute HF. Patient lives at [facility] as a long-term resident, but was able to make it to an outpatient
cardiology office visit on 07/31/24 and appeared to be doing well at that time. Patient was asked to continue Lasix 40 mg PO BID which is handled by his [facility] staff. It's not clear what has happened in the last 8 days because patient is not
answering in-depth questions. custodial told EMS that patient had a cough and his pulse ox was low so they called 911. EMS told the ER staff that when they arrived the patient had a low pulse ox and was minimally responsive, but that patient
improved with NRB. CXR in the ER looks like acute HF. Troponin also elevated, but no reports of chest pain. COVID and influenza negative.
Progress Note - Cellophane Bag Machine Operator
Subjective
Date of Service: August 10, 2024
Patient seen and examined. Patient resting comfortably in bed. Patient denies any chest pain, shortness of breath, lightheadedness, dizziness, weakness or edema. Patient notes improvement in breathing on nasal cannula currently. Telemetry
demonstrates sinus rhythm with occasional PVCs.
Objective
Labs:
08/10/24 05:13
Labs
Hgb 12.3 g/dL (13.0-18.0) L 08/10/24 05:13
Hct 41.4 % (39.0-52.0) 08/10/24 05:13
Plt Count 245 10^3/uL (130-400) 08/10/24 05:13
Sodium Cancelled 08/10/24 05:13
Potassium Cancelled 08/10/24 05:13
BUN Cancelled 08/10/24 05:13
Creatinine Cancelled 08/10/24 05:13
Glucose Cancelled 08/10/24 05:13
Troponins
08/08/24 08/08/24 08/09/24
11:09 21:19 00:28
Troponin I 0.234 H* 0.569 H* Cancelled
08/09/24
04:57
Troponin I 0.410 H* D
Vital Signs and I&O:
Vital Signs
Temp Pulse Resp BP Pulse Ox
97.9 F 85 16 122/59 95
08/10/24 05:08 08/10/24 07:41 08/10/24 07:41 08/10/24 06:00 08/10/24 07:41
Vital Signs
Temp Pulse Resp BP Pulse Ox
97.9 F 85 16 122/59 95
08/10/24 05:08 08/10/24 07:41 08/10/24 07:41 08/10/24 06:00 08/10/24 07:41
Intake & Output
08/08/24 08/09/24 08/10/24 08/11/24
06:59 06:59 06:59 06:59
Intake Total 860 / 860
Output Total 550 / 550 1650 / 1650
Balance -550 / -550 -790 / -790
Physical Exam
Physical Exam
GEN: NAD. Awake and alert
HEENT: EOMI, nasal cannula
LUNGS: Global decreased breath sounds bilaterally, faint crackles
CV: SR on tele, PVCs
ABD: Nontender, nondistended, positive bowel sounds
EXT: +1 B/L LE edema.
NEURO: Gross non-focal
SKIN: No rash
--- NOTE | 2024-08-10 10:20 | W.PN.PUL3 ---
Today's Communication / Plan
-
Remains on BIPAP nightly, repeat ABG likely at new baseline
Continue nightly as he accepts it, he does not wish to use it at home
IV diuresis per team
Wean O2 as tolerated, fluctuates between 6-10L
Stop IV steroids, not wheezing, not in AECOPD
PT/OT, OOB
Assessment
-
Patient is a 73 year old M with previous history of severe COPD/emphysema, chronic hypoxemia, obesity, suspected RICARDO/OHS (refused testing), noncompliance presenting to ER with cough and hypoxemia. Presents from [facility], with hypoxemia,
placed on 8-10L NC with sats in low 90s. He has a history of baseline use of 4L but would intermittently refused to use it. Last seen in our office in February, has history of severe COPD. He does not follow up recommendations for testing/treatment.
Acute on chronic hypoxic and hypercarbic respiratory failure
ABG , prior
Acute HF exacerbation, proBNP [id number]
Acute on chronic SOB/cough
Medical noncompliance
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
Coronary disease with history of LAD stent and elevated filling pressures per catheterization December 2021
Noncompliance, refusal of treatment
Severe COPD/emphysema, GOLD IV
FEV1 30%
Follows with Dr. Marte in OP last seen 02/2024
Chronic hypoxemia, on 4L
Severe pulm hypertension, PA pressure 70
RV dysfunction/dilation per echo 04/01/23
Suspect RICARDO/OHS, never had sleep study/declined testing
Prostate cancer
Incomplete right bundle branch block
Obesity
Prot mirabilis UTI
Lower extremity cellulitis
Plan
O2 protocol--maintained on 6-10L NC
Has needed around 4L in office in last visit, but has been noncompliant with use
Wean as tolerated
Adm ABG with severe respiratory acidosis --worsened compared to prior
Was placed on BIPAP overnight, has been complying while inpatient
Repeat ABG at new baseline (prior )
Continue usage as he accepts it
Stated he has no intention to continue BPAP as outpatient: we have discussed hospice but he does not believe he is ill
He does not feel he has any issue with his lungs, he is in 'perfect health.'
He does not wish to change his code status and does not have family/medical POA designation (he says he has no children or siblings, despite sister is contact). He feels he does not need anyone.
He is not ready for hospice despite his level of noncompliance.
CHF noted on imaging and proBNP
ECHO in past showing severe PH, DHF, RV dysfunction
IV Diuresis as tolerated
Continue budesonide
DNs prn
Resume umeclidinium/vilanterol (anoro ellipta) upon d/c
No AECOPD--no wheezing on exam
Stop IV steroids
DVT prophylaxis: Lovenox
Suspect that patient has obesity hypoventilation syndrome/RICARDO combined with severe obstructive lung disease based on outpatient records
He has refused therapy in the past including oxygen, treatment for sleep apnea, inhaler therapy
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
Noted full code status
Will benefit from GOC discussion with family, given his multiple comorbidities and persistent medical noncompliance. He may be at increased risk for prolonged mechanical ventilation and associated complications. In my humble opinion he should be
DNR/DNI.
This was discussed with him and care team on prior visits
Tried to discuss all above with Mr Styles again today, unfortunately he has very poor insight
Im not sure what more we can offer him
Diagnostic Data
CXR 08/08/24- Cardiomegaly. Radiographic findings felt to most likely represent pulmonary edema.
CXR 03-31-23 (portable) c/w 01-16-22 (PA/lat): Old films with no infiltrates. Current film slightly lordotic/rotated. R basilar linear atelectasis, mild pulm vasc congestion
PET CT 01-17-23 IMPRESSION: [Marked uptake of activity in the prostate gland suspicious for malignancy.] Extension of malignancy to involve the seminal vesicles cannot be excluded on the basis of this study. Coronary artery calcifications and
sigmoid diverticulosis. Please note, evaluation may be limited with possible false negative results in light of the large volume of activity seen in the prostate gland.
R leg doppler 03-31-23: negative
TTE 04-01-23 CONCLUSIONS: Normal left ventricular chamber size. Normal left ventricular systolic function. Left ventricular ejection fraction is 55% by visual estimate. Normal regional wall motion. Mild concentric left ventricular hypertrophy. Stage
II diastolic dysfunction suggestive of abnormal relaxation and increased filling pressures. Moderately dilated right ventricle with moderately reduced systolic function. Dilated right atrium. Mild to moderate tricuspid regurgitation. Estimated
pulmonary artery pressure of 70 mmHg assuming a right atrial pressure of 15 mmHg. Compared to prior study dated 01/18/22 which was directly reviewed, LV function was previously hyperdynamic, otherwise no significant change.
Total time spent on this encounter __50__ minutes which includes review of history, physical exam, medications, laboratory data, personal review of imaging, extensive review of outpatient records, discussion with care team and respiratory therapy.
Subjective Data
-
Date of Service:
Date of Service: August 10, 2024
Chief Complaint: Pulmonary Follow Up
Subjective:
No acute events ON, remains on BIPAP
Weaning o2 down
Objective Data
Data Reviewed
Vital Signs / I&O / Oxygen:
Vital Signs
Temp Pulse Resp BP Pulse Ox
97.9 F 85 16 122/59 95
08/10/24 05:08 08/10/24 07:41 08/10/24 07:41 08/10/24 06:00 08/10/24 07:41
Intake and Output
08/09/24 08/10/24 08/11/24
06:59 06:59 06:59
Intake Total 860 / 860
Output Total 550 / 550 1650 / 1650
Balance -550 / -550 -790 / -790
SaO2 95
Nasal Cannula flow liters per 6
minute
Physical Exam
General: Comfortable and Other (NAD)
HEENT: Normocephalic, Anicteric and Moist Mucous Membranes
Cardiovascular: S1-S2 and Regular Rhythm
Respiratory: Crackles and Non-Labored Respirations
GI: Soft, Non Distended and Non Tender
Neurology: Awake, Alert, Oriented and No Motor Deficits
Skin: Warm, Dry and Good Color
Labs/Micro/Reports
Lab Data
08/10/24 05:13
Laboratory Results
08/10/24
09:46
pH 7.43
pCO2 75 H*
pO2 67 L
HCO3 49.8 H*
O2 Delivery Level
Microbiology
08/09/24 04:58 Nose MRSA Screen - Final
No Methicillin Resistant Staphylococcus aureus isolated.
08/08/24 12:08 Blood/Venous Blood Culture - Preliminary
No Growth in 24 hours- Final report to follow
08/08/24 12:08 Blood/Venous Blood Culture - Preliminary
No Growth in 24 hours- Final report to follow
08/08/24 14:17 Nasal Swab Influenza Types A & B (NICOLE) - Final
Negative for Influenza A & B, NAAT
Negative results must be combined with clinical observations
and patient history.
Nucleic Acid Amplification test (NAAT)performed on the
[employer] platform.
--- NOTE | 2024-08-10 10:24 | W.PN.HOSP.TC ---
Addendum entered and electronically signed by Conrado Orellana MD 08/10/24 14:52:
Seen and examined by me independently in collaboration with the diploma medical assistant.
Lab data and imaging data reviewed.
Addendum as below :
Patient with history of COPD and heart failure with preserved EF presented with shortness of breath and cough. He was noted to be hypoxic and was placed on BiPAP in the ER.
He has a acute on chronic hypoxic and hypercapnic respiratory failure to the point of being obtunded. He has got significant COPD and nebulizer treatments. He still has poor air entry and cough. Chest x-ray raises concern more pulmonary edema
than any focal consolidative disease. He does have cough and productive phlegm indicating bronchitis. Unclear if the flare of COPD is because of poor compliance, bronchitis or related to possible heart failure.
With BiPAP support her pH normalized. Improved CO2. Remains hypoxic-treat with oxygen therapy via nasal cannula and follow.
Continue with steroids and nebulizers. Continue with empirical doxycycline.
Pulmonary following.
Clinical concern of acute on chronic heart failure with preserved EF. Not much of lower extremity edema or JVD visible. Elevated BNP noted.Chest x-ray raising concern for pulmonary edema. Troponins are elevated suggestive more of nonischemic
troponin elevation. Continue with diuretics. Check echocardiogram. Cardiology following.
Patient says he is compliant with his [id number] that he saw Dr. 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 He says his takes his medication. He says his functional without much of support. He lives in an independent section of
her facility
Original Note:
Today's Communication/Plan
-
Continue diuresis for now
Continue respiratory support
Maintain Iv steroids
Assessment / Plan
Assessment / Plan
73-year-old male with cough and shortness of breath. Patient is from [facility] he was hypoxic and placed on BiPAP in the ER
# Acute on chronic hypoxic/acute on chronic hypercapnic respiratory failure patient was obtunded in the ER
On 3-4 L of oxygen as outpatient
Chest x-ray no infiltrates
Continue BiPAP
ABG reviewed and PH now stable
Treat heart failure and COPD exacerbation
Procalcitonin not elevated
COVID and influenza screen negative
Blood cultures NGTD
will cont IV steroids for now
# Acute on chronic HFpEF
Echo 08/09/2024-EF 55%, mild LVH,Dilated right ventricle with low normal RV systolic function Estimated pulmonary artery pressure of 65-70 mmHg assuming a right atrial pressure of 3 mmHg.
Continue metoprolol when patient can take p.o.
ProBNP >54197
Continue IV Lasix for now per cardio-possible transition to p.o. diuretic in next 24 to 48 hours
Not on KINDRA/ARB/ARNI
# Elevated troponin-likely nonischemic myocardial injury secondary to above
# COPD exacerbation- steroids, nebulizer treatments, doxycycline
# Hypokalemia-resolved
# Coronary disease with history of NV and drug-eluting stents to LAD. Residual RCA lesion by cath 2021
# Hypertension-continue amlodipine, metoprolol when can take p.o.
# Hyperlipidemia/atherosclerosis-continue statin when he can take p.o.
# Anxiety/Bipolar disorder-continue sertraline when he can take p.o.
# Obesity
# Suspected sleep apnea- not on PAP as OP as pt does not want.
# Pulmonary hypertension
# History of prostate cancer and h/o hematuria-on bicalutamide. Continue with can take p.o.
# Ex-smoker
# Full code
D/W RN at bed side
D/W patient's sister and updated. I also discussed that unless he wears a PAP machine at night he is at risk for hospitalizations in future.
Time spent over 50 min
Anticipated Discharge: 24 - 48 hours
Subjective/Interval History
-
Date of Service: August 10, 2024
No new complaints per patient, O2 dropped in the low 80s while he was on 12 L O2 via nasal cannula, O2 increased to 15 by nurse now O2 saturation at 94
Objective Data
-
Labs:
Laboratory Results
08/10/24 08/10/24 08/10/24
05:13 06:29 09:46
WBC 13.5 H
Hgb 12.3 L
Hct 41.4
Plt Count 245
HCO3 49.8 H*
Sodium Cancelled Pending
Potassium Cancelled Pending
Chloride Cancelled Pending
Carbon Dioxide Cancelled Pending
BUN Cancelled Pending
Creatinine Cancelled Pending
Glucose Cancelled Pending
Calcium Cancelled Pending
Vital Signs:
Vital Signs
Temp Pulse Resp BP Pulse Ox
97.9 F 85 16 122/59 95
08/10/24 05:08 08/10/24 07:41 08/10/24 07:41 08/10/24 06:00 08/10/24 07:41
I&O
08/09/24 08/10/24 08/11/24
06:59 06:59 06:59
Intake Total 860 / 860
Output Total 550 / 550 1650 / 1650
Balance -550 / -550 -790 / -790
Review of Systems
-
History Source: Patient
Respiratory: Reports Trouble Breathing
Cardiac: Denies Chest Pain or Palpitations
Musculoskeletal: Denies Joint Pain
Neuro: Denies Dizzy or Headache
Hematologic / Lymphatic: Denies Bleeding
Physical Exam
-
General: Well Nourished, Comfortable, Respiratory Distress and Appears Chronically Ill
HEENT: Normocephalic, Atraumatic and Oxygen (15 L NC)
Respiratory: Non Labored Respirations and Decreased Breath Sounds; Negative Accessory Resp Muscle Use
Cardiac: Regular Rhythm and S1/S2
GI: Soft, Nontender, Nondistended and Normal Bowel Sounds
Musculoskeletal: Other (Right yu with discoloration)
Skin: Warm and Dry
Neuro: Awake, Alert and Oriented
Psych: Calm
Data Reviewed
-
Diagnostic Radiology: Report Reviewed by me
Labs: Labs Reviewed by me
Old Records: Reviewed
[2024-08-10 13:26] LABS: Blood Urea Nitrogen 40 mg/dl (9-20); Calcium 8.7 mg/dl (8.4-10.2); Chloride 91 mmol/L (98-107); Estimated Creatinine Clearance 94 ml/min; Glucose 130 mg/dl (70-99); Potassium 3.8 mmol/L (3.5-5.1); Sodium 142 mmol/L (135-145); eGFR > 60.00
[2024-08-10 13:37] LABS: Carbon Dioxide 41 mmol/L (22-30)
[2024-08-10] MEDS: KCL 20 MEQ PO (13:46)
--- NOTE | 2024-08-10 15:17 | PTCARENOTE ---
Assumed care of patient at beginning of this shift from previous RN with 12L midflow in use. POx dropped to low-mid 80s requiring O2 increased to 15L midflow; POx only increased to 87%. Placed on NRB for a few minutes to recover. Currently 10L
midflow in use with POx 99% and patient sleeping. Both Dr Orellana and Dr Salazar made aware, as well as RT. ABGs ordered and drawn; Dr Salazar aware of results. BMP needed to be redrawn d/t hemolyzing per lab. BMP drawn late d/t patient very difficult stick
requiring multiple attempts. At 13:31 patient had a brief run of bigeminy; asymptomatic. Returned to SR/SB (50s-60s); BP 115/49. TT sent to both Dr Orellana and Dr Gresham; 20meq KCL ordered and given. RT therapist in to give treatment and will wean O2.
Patient Ox3 but forgetful at times; he gets angry/agitated when talking about his condition, stating he is fine.
[2024-08-10] MEDS: LOVENOX 40 MG SC (17:02)
--- NOTE | 2024-08-10 17:44 | CM ---
Patient from [facility]. O2 6L midflow. BiPAP. Receiving IV Abx. PT recommends SNF vs return to LTC. OT Eval pending.
Patient will require an insurance auth for return to SNF with rehab.
Plan watch for O2 and BiPAP needs for d/c.
Plan return to [facility] when medically ready and insurance auth obtained.
[2024-08-10] MEDS: LIPITOR 20 MG PO (21:41)
--- NOTE | 2024-08-10 22:05 | PTCARENOTE ---
Rec'd pt at change of shift. Pt rec'd on 14L MF cannula, SaO2 97%. This RN titrated O2 to 12L at 93%. Pt can be uncooperative/argumentative at times regarding care, but ultimately takes medications as ordered. Pt sometimes removes monitoring
equipment. NSR on monitor with ventricular bigeminy at times, previous RN mentioned that MDs aware. VSS, will continue to titrate O2 per demand, see worklist documentation.
[2024-08-11] VITALS (16 sets, daily range): BP systolic 88–128; BP diastolic 50–70; PULSE 2–70; BMI 28.9
[2024-08-11] MEDS: PULMICORT 0.5 MG INH ×2 (07:27→20:26)
[2024-08-11] MEDS: DUONEB 3 ML INH ×4 (07:27→20:26)
--- NOTE | 2024-08-11 08:31 | W.PN.CARDCBS ---
Addendum entered and electronically signed by Maxx Gresham DO 08/11/24 10:01:
I saw and examined the patient.
The [employer]'s note was reviewed and I agree with the note.
Comment:
Patient seen and examined. No acute events overnight. Patient resting comfortably in bed reporting no symptoms. Telemetry demonstrates sinus rhythm with occasional PVC.
A/P as below
Noted lower extremity swelling, continue IV diuresis with Lasix 80 mg IV twice daily
Adjust beta-yaz therapy
Appreciate input from pulmonology and primary service regarding patient's continued respiratory failure and O2 requirement
Original Note:
Today's Communication / Plan
-
Cont Lasix 80 mg IV BID for now
Change to Toprol XL starting tonight
Impression / Plan
-
PCP: Dr. Leiva
Primary Wool Grader: Dr. Kelley
Impression:
Admitted with acute on chronic hypoxic respiratory failure, multifactorial
placed on iPAP 08/08/24
Possible PNA
Elevated Troponin in the setting of HFPEF, COPD; no reported CP
- Troponin peak 0.569
Acute on chronic HFpEF
CAD with [place] s/p 3 mm Synergy BENNY to mid to mid-distal LAD and residual 50-60% RCA lesion by cath 12/2021
Severe COPD
Chronic hypoxic respiratory failure on 3 L NC continuously
Hypertension
Hyperlipidemia
Obesity
Suspected obstructive sleep apnea
Prostate cancer
History of hematuria
Anxiety
Former smoker
Possible bipolar disorder
ECHO 01/18/22: EF 65 to 70%, hyperdynamic LV function, mild concentric LVH, stage I diastolic dysfunction, enlarged RV, mild TR, PAP 65 mmHg, moderate pulmonary hypertension
Echo 04/09/24: EF 68%, mild LVH, severe PHTN with PAP 67 mmHg, compared to echo 03/2023 no significant change
Echo 08/09/24: EF 55%, TDS, normal LV function, mild LVH, dilated RV with low normal RV sys pressure, mild TR with PASP 65-70 mmHg
Plan:
-Weights overall down, but are done using bed scale so not sure how accurate they are.
-Labs pending for 08/11/24, but Cre had been stable with BUN trending up.
-Remains on Lasix 80 mg IV BID. Patient was taking Lasix 40 mg PO BID prior to admission.
-EF was 55% by echo 08/09/24.
-Patient was taking Lopressor 25 mg BID, will transition to Toprol XL 25 mg daily 08/11/24 PM.
-Patient is not chronically on KINDRA/ARB/ARNI, but was previously on lisinopril in 03/2022, but it was stopped due to hypotension.
-Troponin 0.234 initially and then peaked at 0.569. ECG reviewed by me and no acute ischemic changes. Will manage as a nonischemic myocardial injury Troponin elevation.
-Patient with chronic hypoxic respiratory failure and chronically on 3 L NC
HPI: Patient came to [facility] today with increased SOB and decreased responsiveness and cardiology is consulted for possible acute HF. Patient lives at [facility] as a long-term resident, but was able to make it to an outpatient
cardiology office visit on 07/31/24 and appeared to be doing well at that time. Patient was asked to continue Lasix 40 mg PO BID which is handled by his [facility] staff. It's not clear what has happened in the last 8 days because patient is not
answering in-depth questions. custodial told EMS that patient had a cough and his pulse ox was low so they called 911. EMS told the ER staff that when they arrived the patient had a low pulse ox and was minimally responsive, but that patient
improved with NRB. CXR in the ER looks like acute HF. Troponin also elevated, but no reports of chest pain. COVID and influenza negative.
Progress Note - Wool Grader
Subjective
Date of Service: August 11, 2024
Denies chest pain
Objective
Labs:
08/10/24 05:13
Labs
Hgb 12.3 g/dL (13.0-18.0) L 08/10/24 05:13
Hct 41.4 % (39.0-52.0) 08/10/24 05:13
Plt Count 245 10^3/uL (130-400) 08/10/24 05:13
Sodium Cancelled 08/11/24 06:03
Potassium Cancelled 08/11/24 06:03
BUN Cancelled 08/11/24 06:03
Creatinine Cancelled 08/11/24 06:03
Glucose Cancelled 08/11/24 06:03
Troponins
08/08/24 08/08/24 08/09/24
11:09 21:19 00:28
Troponin I 0.234 H* 0.569 H* Cancelled
08/09/24
04:57
Troponin I 0.410 H* D
Vital Signs and I&O:
Vital Signs
Temp Pulse Resp BP Pulse Ox
97.5 F 85 16 118/59 97
08/11/24 04:42 08/11/24 07:28 08/11/24 07:28 08/11/24 04:00 08/11/24 07:28
Vital Signs
Temp Pulse Resp BP Pulse Ox
97.5 F 85 16 118/59 97
08/11/24 04:42 08/11/24 07:28 08/11/24 07:28 08/11/24 04:00 08/11/24 07:28
Intake & Output
08/09/24 08/10/24 08/11/24 08/12/24
06:59 06:59 06:59 06:59
Intake Total 860 / 860 740 / 740
Output Total 550 / 550 1650 / 1650 750 / 750
Balance -550 / -550 -790 / -790 -10 / -10
Physical Exam
Physical Exam
GEN: NAD. Awake and alert
HEENT: EOMI
LUNGS: 10 L midflow
CV: SR on tele
ABD: ND
EXT: +2 B/L LE edema.
NEURO: Gross non-focal
SKIN: No rash
[2024-08-11] MEDS: ZOLOFT 100 MG PO (10:08)
[2024-08-11] MEDS: KCL 10 MEQ PO (10:08)
[2024-08-11] MEDS: LOW STRENGTH ASPIRIN 81 MG PO (10:08)
[2024-08-11] MEDS: LASIX 80 MG IV ×2 (10:09→17:24)
[2024-08-11] MEDS: FLUSH (NSS) 1 FLUSH IV (10:10)
--- NOTE | 2024-08-11 12:30 | W.PN.HOSP.TC ---
Today's Communication/Plan
-
Continue with IV diuresis. Follow weights and BMP.
Continue with nebs and empirical antibiotics/doxycycline for bronchitis. Holding on steroids. Continue with nebulizers.
Wean oxygen as able.
Assessment / Plan
Assessment / Plan
73-year-old male with cough and shortness of breath. Patient is from [facility] [place] he was hypoxic and placed on BiPAP in the ER
# Acute on chronic hypoxic/acute on chronic hypercapnic respiratory failure patient was obtunded in the ER
On 3-4 L of oxygen as outpatient
Chest x-ray no infiltrates
Suspected heart failure related. Normalized pH improved hypercapnia. Off of BiPAP. Currently on oxygen via nasal cannula. Wean oxygen as able.
Patient still requiring high FiO2-maintain 10 to 12 L of oxygen via nasal cannula
# COPD with no acute flare
CXR without focal pneumonia.
Suspect recent bronchitis -pt with post infectious cough which seems to be productive. Complete 5 days of doxycycline..
Procalcitonin not elevated
COVID and influenza screen negative
Continue with the nebulizers. Pulmonary holding on steroids.
# Acute on chronic HFpEF
Echo 08/09/2024-EF 55%, mild LVH,Dilated right ventricle with low normal RV systolic function Estimated pulmonary artery pressure of 65-70 mmHg assuming a right atrial pressure of 3 mmHg.
Continue metoprolol when patient can take p.o.
ProBNP >49830
Pt lost 20lbs since adx
Continue IV Lasix for now per cardio
Not on KINDRA/ARB/ARNI
# Elevated troponin-likely nonischemic myocardial injury secondary to above
# Coronary disease with history of KY and drug-eluting stents to LAD. Residual RCA lesion by cath 2021
# Hypertension-continue amlodipine, metoprolol
# Hyperlipidemia/atherosclerosis-continue statin
# Anxiety/Bipolar disorder-continue sertraline
# Obesity
# Suspected sleep apnea- not on PAP as OP as pt does not want.
# Pulmonary hypertension
# History of prostate cancer and h/o hematuria-on bicalutamide. Continue with can take p.o.
# Ex-smoker
# Full code
D/W RN
D/W pulmonary
Total time spent on today's encounter was 52 minutes which included time spent in counseling the patient/family regarding diagnosis and treatment plan as listed above, goals of care, and symptom management. Case was discussed with nursing staff,
specialists, and care coordinators/case management. All labs and imaging personally reviewed by me. Remainder the time spent in detailed review of previous records, lab data, imaging, and other medical provider documentation.
Anticipated Discharge: > 48 hours
Subjective/Interval History
-
Date of Service: August 11, 2024
Moist cough but no fever or chills.
Breathing better.
Denies CP.
No N/V.
Objective Data
-
Labs:
Laboratory Results
08/11/24 08/11/24 08/11/24
06:03 11:21 12:00
Sodium Cancelled Cancelled Pending
Potassium Cancelled Cancelled Pending
Chloride Cancelled Cancelled Pending
Carbon Dioxide Cancelled Cancelled Pending
BUN Cancelled Cancelled Pending
Creatinine Cancelled Cancelled Pending
Glucose Cancelled Cancelled Pending
Calcium Cancelled Cancelled Pending
Vital Signs:
Vital Signs
Temp Pulse Resp BP Pulse Ox
97.3 F 67 14 99/50 98
08/11/24 08:10 08/11/24 11:41 08/11/24 11:41 08/11/24 10:02 08/11/24 11:41
I&O
08/10/24 08/11/24 08/12/24
06:59 06:59 06:59
Intake Total 860 / 860 740 / 740
Output Total 1650 / 1650 750 / 750
Balance -790 / -790 -10 / -10
Review of Systems
-
Constitutional: Denies Fever
EENT: Denies Sore Throat
Abdomen/GI: Denies Abdominal Pain
Neuro: Denies Dizzy or Headache
Physical Exam
-
Respiratory: Non Labored Respirations and Decreased Breath Sounds (In general); Negative Wheezes or Accessory Resp Muscle Use
Cardiac: Regular Rhythm and S1/S2; Negative Tachycardic
GI: Soft and Nontender
Musculoskeletal: Edema, Right Lower Extrem and Edema, Left Lower Extrem (Improved)
Neuro: AO x 3
Psych: Calm
Data Reviewed
-
Labs: Labs Reviewed by me
[2024-08-11] MEDS: CASODEX 50 MG PO (13:47)
[2024-08-11] MEDS: DESENEX/MITRAZOL/ZEASORB 1 APPLIC TOPICAL ×2 (13:48→20:32)
[2024-08-11] MEDS: NORVASC 5 MG PO (13:49)
[2024-08-11] MEDS: LOPRESSOR PO (13:49)
[2024-08-11] MEDS: VIBRAMYCIN 260 MG IV ×2 (13:50→23:18)
[2024-08-11 14:29] LABS: Blood Urea Nitrogen 39 mg/dl (9-20); Calcium 8.8 mg/dl (8.4-10.2); Chloride 86 mmol/L (98-107); Estimated Creatinine Clearance 94 ml/min; Glucose 126 mg/dl (70-99); Potassium 3.4 mmol/L (3.5-5.1); Sodium 143 mmol/L (135-145); eGFR > 60.00
[2024-08-11 14:40] LABS: Carbon Dioxide 49 mmol/L (22-30)
--- NOTE | 2024-08-11 15:00 | W.PN.PUL3 ---
Today's Communication / Plan
-
Continue with current care
Nebulizers
IV diuretics
Okay supplementation
Nocturnal BiPAP while in the hospital
Avoid sedatives
Short course of antibiotics for bronchitic symptoms
Hold the steroids. In the past he has become delirious with systemic corticosteroids.
Assessment
-
Patient is a 73 year old M with previous history of severe COPD/emphysema, chronic hypoxemia, obesity, suspected RICARDO/OHS (refused testing), noncompliance presenting to ER with cough and hypoxemia. Presents from [facility], with hypoxemia,
placed on 8-10L NC with sats in low 90s. He has a history of baseline use of 4L but would intermittently refused to use it. Last seen in our office in February, has history of severe COPD. He does not follow up recommendations for testing/treatment.
Acute on chronic hypoxic and hypercarbic respiratory failure
ABG 7.32, prior 7.
Acute HF exacerbation, proBNP 01775
Acute on chronic SOB/cough
Medical noncompliance
Advanced COPD with chronic hypercapnic and hypoxemic respiratory failure
Not compliant with oxygen therapy
Declined noninvasive mechanical ventilator
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
Coronary disease with history of LAD stent and elevated filling pressures per catheterization December 2021
Noncompliance, refusal of treatment
Severe COPD/emphysema, GOLD IV
FEV1 30%
Follows with Dr. Marte in OP last seen 02/2024
Chronic hypoxemia, on 4L
Severe pulm hypertension, PA pressure 70
RV dysfunction/dilation per echo 04/01/23
Suspect RICARDO/OHS, never had sleep study/declined testing
Prostate cancer
Incomplete right bundle branch block
Obesity
Prot mirabilis UTI
Lower extremity cellulitis
Plan:
Chronic hypoxemic respiratory failure multifactorial: Advanced COPD/some degree of volume overload/severe pulmonary hypertension.
O2 protocol--maintained on 6-10L NC
Has needed around 4L in office in last visit 06/2024, but has been noncompliant with use-he likely requires higher degree of oxygen supplementation at baseline but he refuses.
Wean as tolerated.
Chronic hypercapnic respiratory failure:
Repeat ABG at new baseline (prior )-compensated
Was placed on BIPAP has been complying while inpatient-patient states that he does not want it in the outpatient setting.
Continue usage as he accepts it
Avoid sedatives
He understands high risk of readmission and without noninvasive mechanical ventilation. Multiple extensive discussion with him in the outpatient setting and during this admission.
Prior conversations,
Stated he has no intention to continue BPAP as outpatient: we have discussed hospice but he does not believe he is ill
He does not feel he has any issue with his lungs, he is in 'perfect health.'
He does not wish to change his code status and does not have family/medical POA designation (he says he has no children or siblings, despite sister is contact). He feels he does not need anyone.
He is not ready for hospice despite his level of noncompliance.
CHF noted on imaging and proBNP
ECHO in past showing severe PH, DHF, RV dysfunction
Severe pulmonary hypertension likely due to underlying severe lung disease, chronic hypercapnic respiratory failure, chronic hypoxemia with poor compliance with oxygen and and refusal of noninvasive mechanical ventilation.
IV Diuresis as tolerated
Not significantly bronchospastic on exam:
Continue budesonide
DNs prn
Resume umeclidinium/vilanterol (anoro ellipta) upon d/c
No AECOPD--no wheezing on exam
Monitor off steroid
Agree with short course of antibiotics for bronchitic symptoms.
DVT prophylaxis: Lovenox
Suspect that patient has obesity hypoventilation syndrome/RICARDO combined with severe obstructive lung disease based on outpatient records
He has refused therapy in the past including oxygen, treatment for sleep apnea, inhaler therapy
Prior conversations:
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
Noted full code status
Will benefit from [facility] discussion with family, given his multiple comorbidities and persistent medical noncompliance. He may be at increased risk for prolonged mechanical ventilation and associated complications. In my humble opinion he should be
DNR/DNI.
This was discussed with him and care team on prior visits
Tried to discuss all above with Mr Sytles again today, unfortunately he has very poor insight
Not much else to offer.
Diagnostic Data
CXR 08/08/24- Cardiomegaly. Radiographic findings felt to most likely represent pulmonary edema.
CXR 03-31-23 (portable) c/w 01-16-22 (PA/lat): Old films with no infiltrates. Current film slightly lordotic/rotated. R basilar linear atelectasis, mild pulm vasc congestion
PET CT 01-17-23 IMPRESSION: [Marked uptake of activity in the prostate gland suspicious for malignancy.] Extension of malignancy to involve the seminal vesicles cannot be excluded on the basis of this study. Coronary artery calcifications and
sigmoid diverticulosis. Please note, evaluation may be limited with possible false negative results in light of the large volume of activity seen in the prostate gland.
R leg doppler 03-31-23: negative
TTE 04-01-23 CONCLUSIONS: Normal left ventricular chamber size. Normal left ventricular systolic function. Left ventricular ejection fraction is 55% by visual estimate. Normal regional wall motion. Mild concentric left ventricular hypertrophy. Stage
II diastolic dysfunction suggestive of abnormal relaxation and increased filling pressures. Moderately dilated right ventricle with moderately reduced systolic function. Dilated right atrium. Mild to moderate tricuspid regurgitation. Estimated
pulmonary artery pressure of 70 mmHg assuming a right atrial pressure of 15 mmHg. Compared to prior study dated 01/18/22 which was directly reviewed, LV function was previously hyperdynamic, otherwise no significant change.
Total time spent on this encounter __50__ minutes which includes review of history, physical exam, medications, laboratory data, personal review of imaging, extensive review of outpatient records, discussion with care team and respiratory therapy.
Subjective Data
-
Date of Service:
Date of Service: August 11, 2024
Chief Complaint: Pulmonary Follow Up
Subjective:
No new complaints
Remains on diuresis with his weight trending lower
Continues to report some coughing.
Review of Systems
Cardiopulmonary: Dyspnea on Exertion (chronic)
GI: Abdominal Pain (n) and Nausea (n)
Neuro: Headache (n)
Objective Data
Data Reviewed
Vital Signs / I&O / Oxygen:
Vital Signs
Temp Pulse Resp BP Pulse Ox
97.6 F 64 26 115/70 95
08/11/24 11:35 08/11/24 13:44 08/11/24 13:44 08/11/24 13:44 08/11/24 12:00
Intake and Output
08/10/24 08/11/24 08/12/24
06:59 06:59 06:59
Intake Total 860 / 860 740 / 740
Output Total 1650 / 1650 750 / 750
Balance -790 / -790 -10 / -10
SaO2 95
Nasal Cannula flow liters per 12
minute
Physical Exam
General: Comfortable and Other (NAD)
HEENT: Normocephalic, Anicteric and Moist Mucous Membranes
Cardiovascular: S1-S2 and Regular Rhythm
Respiratory: Crackles and Non-Labored Respirations
GI: Soft, Non Distended and Non Tender
Neurology: Awake, Alert, Oriented and No Motor Deficits
Skin: Warm, Dry and Good Color
Labs/Micro/Reports
Lab Data
08/10/24 05:13
08/11/24 13:51
Microbiology
08/08/24 12:08 Blood/Venous Blood Culture - Preliminary
No Growth in 72 hours- Final report to follow
08/08/24 12:08 Blood/Venous Blood Culture - Preliminary
No Growth in 72 hours- Final report to follow
08/09/24 04:58 Nose MRSA Screen - Final
No Methicillin Resistant Staphylococcus aureus isolated.
08/08/24 14:17 Nasal Swab Influenza Types A & B (NICOLE) - Final
Negative for Influenza A & B, NAAT
Negative results must be combined with clinical observations
and patient history.
Nucleic Acid Amplification test (NAAT)performed on the
[employer] platform.
--- NOTE | 2024-08-11 17:00 | PTCARENOTE ---
Patient on 10-12L midline oxygen. Patient denies shortness of breath. Lungs very diminished throughout with scattered expiratory wheezing, moist nonproductive cough. New right midline. VS stable. Using call thompson appropriately.
[2024-08-11] MEDS: LOVENOX 40 MG SC (17:25)
[2024-08-11] MEDS: KCL 40 MEQ PO (20:23)
[2024-08-11] MEDS: TOPROL XL 25 MG PO (20:24)
[2024-08-11] MEDS: LIPITOR 20 MG PO (21:47)
--- NOTE | 2024-08-11 22:57 | PTCARENOTE ---
Pt agreeable to wear BiPAP HS. Remains confused at times, argumentative at times. Inc of urine, hygiene care performed. Bed alarm in place for pt safety. Call thompson within reach.
[2024-08-12] VITALS (13 sets, daily range): BP systolic 92–125; BP diastolic 54–70; PULSE 2–68; BMI 29.9
[2024-08-12] MEDS: DUONEB 3 ML INH ×4 (07:28→19:54)
[2024-08-12] MEDS: PULMICORT 0.5 MG INH ×2 (07:29→19:54)
[2024-08-12] MEDS: LASIX 80 MG IV ×2 (08:32→16:46)
[2024-08-12] MEDS: KCL 10 MEQ PO (08:33)
[2024-08-12] MEDS: FLUSH (NSS) 2 FLUSH IV ×3 (08:33→16:46)
[2024-08-12] MEDS: ZOLOFT 100 MG PO (08:34)
[2024-08-12] MEDS: CASODEX 50 MG PO (08:34)
[2024-08-12] MEDS: LOW STRENGTH ASPIRIN 81 MG PO (08:34)
[2024-08-12] MEDS: DESENEX/MITRAZOL/ZEASORB 1 APPLIC TOPICAL ×2 (08:35→20:50)
--- NOTE | 2024-08-12 10:26 | W.PN.CARDCBS ---
Today's Communication / Plan
-
Transition oral diuretic likely next 24-48-hour
Monitor and replete electrolytes
Impression / Plan
-
PCP: Dr. Leiva
Primary Customs Compliance Director: Dr. Kelley
Impression:
Admitted with acute on chronic hypoxic respiratory failure, multifactorial
placed on iPAP 08/08/24
Possible PNA
Elevated Troponin in the setting of HFPEF, COPD; no reported CP
- Troponin peak 0.569
Acute on chronic HFpEF
CAD with KY s/p 3 mm Synergy BENNY to mid to mid-distal LAD and residual 50-60% RCA lesion by cath 12/2021
Severe COPD
Chronic hypoxic respiratory failure on 3 L NC continuously
Hypertension
Hyperlipidemia
Obesity
Suspected obstructive sleep apnea
Prostate cancer
History of hematuria
Anxiety
Former smoker
Possible bipolar disorder
ECHO 01/18/22: EF 65 to 70%, hyperdynamic LV function, mild concentric LVH, stage I diastolic dysfunction, enlarged RV, mild TR, PAP 65 mmHg, moderate pulmonary hypertension
Echo 04/09/24: EF 68%, mild LVH, severe PHTN with PAP 67 mmHg, compared to echo 03/2023 no significant change
Echo 08/09/24: EF 55%, TDS, normal LV function, mild LVH, dilated RV with low normal RV sys pressure, mild TR with PASP 65-70 mmHg
Plan:
-Weights overall down, but are done using bed scale so not sure how accurate they are.
-Labs pending for 08/11/24, but Cre had been stable with BUN trending up.
-Remains on Lasix 80 mg IV BID. Patient was taking Lasix 40 mg PO BID prior to admission.; Plan to transition to oral diuretic therapy 24-48-hour
-EF was 55% by echo 08/09/24.
-Patient was taking Lopressor 25 mg BID, will transition to Toprol XL 25 mg daily 08/11/24 PM, tolerating.
-Patient is not chronically on KINDRA/ARB/ARNI, but was previously on lisinopril in 03/2022, but it was stopped due to hypotension.
-Troponin 0.234 initially and then peaked at 0.569. ECG reviewed by me and no acute ischemic changes. Will manage as a nonischemic myocardial injury Troponin elevation.
-Patient with chronic hypoxic respiratory failure and chronically on 3 L NC
HPI: Patient came to [facility] today with increased SOB and decreased responsiveness and cardiology is consulted for possible acute HF. Patient lives at [facility] as a long-term resident, but was able to make it to an outpatient
cardiology office visit on 07/31/24 and appeared to be doing well at that time. Patient was asked to continue Lasix 40 mg PO BID which is handled by his [facility] staff. It's not clear what has happened in the last 8 days because patient is not
answering in-depth questions. [facility] told [facility] that patient had a cough and his pulse ox was low so they called 911. EMS told the ER staff that when they arrived the patient had a low pulse ox and was minimally responsive, but that patient
improved with NRB. CXR in the ER looks like acute HF. Troponin also elevated, but no reports of chest pain. COVID and influenza negative.
Progress Note - Customs Compliance Director
Subjective
Date of Service: August 12, 2024
Patient seen and examined. No acute events overnight. Patient resting comfortably in bed enjoying breakfast. Denies chest pain, shortness of breath, palpitations, lightheadedness, dizziness, near-syncope, syncope, or weakness. Telemetry
demonstrates sinus bradycardia/sinus rhythm, asymptomatic.
Objective
Labs:
08/10/24 05:13
08/11/24 13:51
Labs
Hgb 12.3 g/dL (13.0-18.0) L 08/10/24 05:13
Hct 41.4 % (39.0-52.0) 08/10/24 05:13
Plt Count 245 10^3/uL (130-400) 08/10/24 05:13
Sodium 143 mmol/L (135-145) 08/11/24 13:51
Potassium 3.4 mmol/L (3.5-5.1) L 08/11/24 13:51
BUN 39 mg/dl (9-20) H 08/11/24 13:51
Creatinine 0.8 mg/dL (0.7-1.3) 08/11/24 13:51
Glucose 126 mg/dl (70-99) H 08/11/24 13:51
Vital Signs and I&O:
Vital Signs
Temp Pulse Resp BP Pulse Ox
98.0 F 54 20 114/68 91
08/12/24 08:37 08/12/24 08:00 08/12/24 08:00 08/12/24 08:00 08/12/24 08:31
Vital Signs
Temp Pulse Resp BP Pulse Ox
98.0 F 54 20 114/68 91
08/12/24 08:37 08/12/24 08:00 08/12/24 08:00 08/12/24 08:00 08/12/24 08:31
Intake & Output
08/10/24 08/11/24 08/12/24 08/13/24
06:59 06:59 06:59 06:59
Intake Total 860 / 860 740 / 740 1405 / 1405
Output Total 1650 / 1650 750 / 750 1100 / 1100
Balance -790 / -790 -10 / -10 305 / 305
Physical Exam
Physical Exam
GEN: NAD. Awake and alert
HEENT: EOMI
LUNGS: 10 L midflow
CV: SR on tele
ABD: ND
EXT: +1 B/L LE edema.
NEURO: Gross non-focal
SKIN: No rash
--- NOTE | 2024-08-12 11:12 | W.PN.PUL3 ---
Today's Communication / Plan
-
Continue BiPAP with naps and at bedtime
Continue oxygen supplementation
IV diuresis
Nebulizers
Short course of antibiotic 5 days due to bronchitic symptoms
Prognosis is guarded
Assessment
-
Patient is a 73 year old M with previous history of severe COPD/emphysema, chronic hypoxemia, obesity, suspected RICARDO/OHS (refused testing), noncompliance presenting to ER with cough and hypoxemia. Presents from [facility], with hypoxemia,
placed on 8-10L NC with sats in low 90s. He has a history of baseline use of 4L but would intermittently refused to use it. Last seen in our office in February, has history of severe COPD. He does not follow up recommendations for testing/treatment.
Acute on chronic hypoxic and hypercarbic respiratory failure
ABG 7.3284, prior 7.
Acute HF exacerbation, proBNP 34908
Acute on chronic SOB/cough
Medical noncompliance
Advanced COPD with chronic hypercapnic and hypoxemic respiratory failure
Not compliant with oxygen therapy
Declined noninvasive mechanical ventilator
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
Coronary disease with history of LAD stent and elevated filling pressures per catheterization December 2021
Noncompliance, refusal of treatment
Severe COPD/emphysema, GOLD IV
FEV1 30%
Follows with Dr. Marte in OP last seen 02/2024
Chronic hypoxemia, on 4L
Severe pulm hypertension, PA pressure 70-likely due to chronic hypercapnic respiratory failure/advanced COPD
Poor compliant with oxygen.
RV dysfunction/dilation per echo 04/01/23
Suspect RICARDO/OHS, never had sleep study/declined testing
Prostate cancer
Incomplete right bundle branch block
Obesity
Prot mirabilis UTI
Lower extremity cellulitis
Plan:
Chronic hypoxemic respiratory failure multifactorial: Advanced COPD/some degree of volume overload/severe pulmonary hypertension.
O2 protocol--maintained on 6-10L NC
Has needed around 4L in office in last visit 06/2024, but has been noncompliant with use-he likely requires higher degree of oxygen supplementation at baseline but he refuses.
Wean as tolerated.
He is not bronchospastic on exam 08/12/2024
Chronic hypercapnic respiratory failure:
Repeat ABG at new baseline 7.4375 (prior 7.32)-compensated
Continue BIPAP has been complying while inpatient-patient states that he does not want it in the outpatient setting.
Continue usage as he accepts it
Avoid sedatives
He understands high risk of readmission and without noninvasive mechanical ventilation. Multiple extensive discussion with him in the outpatient setting and during this admission.
Prior conversations,
Stated he has no intention to continue BPAP as outpatient: we have discussed hospice but he does not believe he is ill
He does not feel he has any issue with his lungs, he is in 'perfect health.'
He does not wish to change his code status and does not have family/medical POA designation (he says he has no children or siblings, despite sister is contact). He feels he does not need anyone.
He is not ready for hospice despite his level of noncompliance.
CHF noted on imaging and proBNP
ECHO in past showing severe PH, DHF, RV dysfunction, LVH.
Severe pulmonary hypertension likely due to underlying severe lung disease, chronic hypercapnic respiratory failure, chronic hypoxemia with poor compliance with oxygen and and refusal of noninvasive mechanical ventilation.
IV Diuresis as tolerated.
Replete electrolytes as needed
Not significantly bronchospastic on exam:
Chest x-ray: Pulmonary edema pattern on admission. Repeat chest x-ray tomorrow morning 08/13/2024. Order has been placed
Reports of bronchitic symptoms: Agree with 5 days of doxycycline.
Continue budesonide
Continue DuoNebs [id number]
Resume umeclidinium/vilanterol (anoro ellipta) upon d/c
No AECOPD--no wheezing on exam-08/12/2024
Monitor off systemic steroid, may need to trial if unable to wean off oxygen despite diuretics
Agree with short course of antibiotics for bronchitic symptoms.
DVT prophylaxis: Lovenox
Suspect that patient has obesity hypoventilation syndrome/RICARDO combined with severe obstructive lung disease based on outpatient records
He has refused therapy in the past including oxygen, treatment for sleep apnea, inhaler therapy
Prior conversations:
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
Noted full code status
Will benefit from [facility] discussion with family, given his multiple comorbidities and persistent medical noncompliance. He may be at increased risk for prolonged mechanical ventilation and associated complications. In my humble opinion he should be
DNR/DNI.
This was discussed with him and care team on prior visits
Tried to discuss all above with Mr Styles again today, unfortunately he has very poor insight
Not much else to offer.
Follow up with Dr. Marte after discharge known to have poor compliance with therapy, unable to afford medications, poor compliant with oxygen, refusing BiPAP, last time seen in June 2024 with ASHWINI.

Diagnostic Data
CXR 08/08/24- Cardiomegaly. Radiographic findings felt to most likely represent pulmonary edema.
CXR 03-31-23 (portable) c/w 01-16-22 (PA/lat): Old films with no infiltrates. Current film slightly lordotic/rotated. R basilar linear atelectasis, mild pulm vasc congestion
PET CT 01-17-23 IMPRESSION: [Marked uptake of activity in the prostate gland suspicious for malignancy.] Extension of malignancy to involve the seminal vesicles cannot be excluded on the basis of this study. Coronary artery calcifications and
sigmoid diverticulosis. Please note, evaluation may be limited with possible false negative results in light of the large volume of activity seen in the prostate gland.
R leg doppler 03-31-23: negative
TTE 04-01-23 CONCLUSIONS: Normal left ventricular chamber size. Normal left ventricular systolic function. Left ventricular ejection fraction is 55% by visual estimate. Normal regional wall motion. Mild concentric left ventricular hypertrophy. Stage
II diastolic dysfunction suggestive of abnormal relaxation and increased filling pressures. Moderately dilated right ventricle with moderately reduced systolic function. Dilated right atrium. Mild to moderate tricuspid regurgitation. Estimated
pulmonary artery pressure of 70 mmHg assuming a right atrial pressure of 15 mmHg. Compared to prior study dated 01/18/22 which was directly reviewed, LV function was previously hyperdynamic, otherwise no significant change.
Total time spent on this encounter __52__ minutes which includes review of history, physical exam, medications, laboratory data, personal review of imaging, extensive review of outpatient records, discussion with care team and respiratory therapy.
Subjective Data
-
Date of Service:
Date of Service: August 12, 2024
Chief Complaint: Pulmonary Follow Up
Subjective:
Patient offers no new complaints
Remains on supplemental oxygen
Denies phlegm production or hemoptysis
Review of Systems
General: Fever (n)
Cardiopulmonary: Dyspnea (none at rest) and Cough (n)
GI: Abdominal Pain (n) and Nausea (n)
Neuro: Headache (n)
Objective Data
Data Reviewed
Vital Signs / I&O / Oxygen:
Vital Signs
Temp Pulse Resp BP Pulse Ox
98.0 F 54 20 114/68 91
08/12/24 08:37 08/12/24 08:00 08/12/24 08:00 08/12/24 08:00 08/12/24 08:31
Intake and Output
08/11/24 08/12/24 08/13/24
06:59 06:59 06:59
Intake Total 740 / 740 1405 / 1405
Output Total 750 / 750 1100 / 1100
Balance -10 / -10 305 / 305
SaO2 91
Nasal Cannula flow liters per 12
minute
Physical Exam
General: Comfortable (at rest) and Other (NAD)
HEENT: Normocephalic, Anicteric and Moist Mucous Membranes
Cardiovascular: S1-S2 and Regular Rhythm
Respiratory: Crackles and Non-Labored Respirations
GI: Soft, Non Distended and Non Tender
Neurology: Awake, Alert, Oriented and No Motor Deficits
Skin: Warm, Dry and Good Color
Labs/Micro/Reports
Lab Data
08/10/24 05:13
08/11/24 13:51
Microbiology
08/08/24 12:08 Blood/Venous Blood Culture - Preliminary
No Growth in 72 hours- Final report to follow
08/08/24 12:08 Blood/Venous Blood Culture - Preliminary
No Growth in 72 hours- Final report to follow
08/09/24 04:58 Nose MRSA Screen - Final
No Methicillin Resistant Staphylococcus aureus isolated.
--- NOTE | 2024-08-12 11:12 | W.PN.HOSP.TC ---
Today's Communication/Plan
-
Continue with diuresis
Continue HS BiPAP
Continue with empirical doxycycline and nebulizers
Wean oxygen as able
Assessment / Plan
Assessment / Plan
73-year-old male with cough and shortness of breath. Patient is from [facility] he was hypoxic and placed on BiPAP in the ER
# Acute on chronic hypoxic/acute on chronic hypercapnic respiratory failure patient was obtunded in the ER
On 3-4 L of oxygen as outpatient
Chest x-ray no infiltrates
Suspected heart failure related. Normalized pH improved hypercapnia. Now wearing and tolerating HS BiPAP. Currently on oxygen via nasal cannula. Wean oxygen as able. Currently on 10 L.
Improved weight since admission. Continue diuretics per cardiology
# COPD with no acute flare
CXR without focal pneumonia.
Suspect recent bronchitis -pt with post infectious cough which seems to be productive. Complete 5 days of doxycycline..
Procalcitonin not elevated
COVID and influenza screen negative
Continue with the nebulizers. Pulmonary holding on steroids.
# Acute on chronic HFpEF
Echo 08/09/2024-EF 55%, mild LVH,Dilated right ventricle with low normal RV systolic function Estimated pulmonary artery pressure of 65-70 mmHg assuming a right atrial pressure of 3 mmHg.
Continue metoprolol when patient can take p.o.
ProBNP >53771
Improving wt since adx
Continue IV Lasix for now per cardio
Not on KINDRA/ARB/ARNI
# Hypokalemia -replete
# Elevated troponin-likely nonischemic myocardial injury secondary to above
# Coronary disease with history of [place] and drug-eluting stents to LAD. Residual RCA lesion by cath 2021
# Hypertension-continue amlodipine, metoprolol
# Hyperlipidemia/atherosclerosis-continue statin
# Anxiety/Bipolar disorder-continue sertraline
# Obesity
# Suspected sleep apnea- not on PAP as OP as pt does not want.
# Pulmonary hypertension
# History of prostate cancer and h/o hematuria-on bicalutamide. Continue with can take p.o.
# Ex-smoker
# Full code
Anticipated Discharge: > 48 hours
Subjective/Interval History
-
Date of Service: August 12, 2024
Has cough with minimal production of phlegm. No fever or chills.
Denies any shortness of breath at rest. No chest pain.
No nausea vomiting.
Normally on 4 L of oxygen at home. Currently at 10 L.
Objective Data
-
Vital Signs:
Vital Signs
Temp Pulse Resp BP Pulse Ox
98.0 F 54 20 114/68 91
08/12/24 08:37 08/12/24 08:00 08/12/24 08:00 08/12/24 08:00 08/12/24 08:31
I&O
08/11/24 08/12/24 08/13/24
06:59 06:59 06:59
Intake Total 740 / 740 1405 / 1405
Output Total 750 / 750 1100 / 1100
Balance -10 / -10 305 / 305
Review of Systems
-
Constitutional: Denies Fever
EENT: Denies Sore Throat
Respiratory: Reports Cough
Abdomen/GI: Denies Abdominal Pain
Neuro: Denies Dizzy
Physical Exam
-
General: Comfortable
Respiratory: Rhonchi (Clears with coughing) and Non Labored Respirations; Negative Accessory Resp Muscle Use
Cardiac: Regular Rhythm and S1/S2
GI: Soft
Musculoskeletal: Negative No Edema (improved BL LE)
Neuro: AO x 3; Negative Tremors
Psych: Calm; Negative Confused
Data Reviewed
-
Labs: Labs Reviewed by me
[2024-08-12] MEDS: VIBRAMYCIN 260 MG IV (12:30)
[2024-08-12] MEDS: NORVASC 5 MG PO (12:31)
[2024-08-12] MEDS: TOPROL XL 25 MG PO (12:31)
[2024-08-12] MEDS: LOVENOX 40 MG SC (16:47)
--- NOTE | 2024-08-12 18:00 | PTCARENOTE ---
Patient out of bed to chair and commode with assistance x 1-2. Pure wick in use due to urgency with urination and difficulty with using urinal. Midflow oxygen 8-11L. Moist nonproductive cough. VS stable. Patient using call thompson appropriately. SR
with PVC's.
--- NOTE | 2024-08-12 20:19 | RESPNOTE ---
Pt c/o pain on R ear. When I examined it I noticed there was skin breakdown on both ears the R > L. RN made aware, ear foams placed on cannula.
[2024-08-12] MEDS: LIPITOR 20 MG PO (20:49)
[2024-08-13] VITALS (14 sets, daily range): BP systolic 102–151; BP diastolic 52–105; PULSE 2–70; BMI 29.8
[2024-08-13] MEDS: FLUSH (NSS) 4 FLUSH IV (00:22)
[2024-08-13] MEDS: VIBRAMYCIN 260 MG IV (00:22)
[2024-08-13 05:31] LABS: Hematocrit 42.6 % (39.0-52.0); Hemoglobin 12.9 g/dL (13.0-18.0); Mean Corp Hgb Conc. 30.3 g/dL (33.0-37.0); Mean Corpuscular Hgb 26.3 pg (27.0-31.0); Mean Corpuscular Volume 86.8 fL (80.0-94.0); Mean Platelet Volume 11.6 fL (7.4-10.4); Platelet Count 232 10^3/uL (130-400); Red Blood Cell Count 4.91 10^6/uL (4.70-6.10); Red Cell Dist. Width 14.9 % (11.5-14.5); White Blood Cell Count 7.1 10^3/uL (4.8-10.8)
[2024-08-13 06:01] LABS: Blood Urea Nitrogen 43 mg/dl (9-20); Calcium 8.6 mg/dl (8.4-10.2); Chloride 87 mmol/L (98-107); Estimated Creatinine Clearance 94 ml/min; Glucose 101 mg/dl (70-99); Potassium 4.4 mmol/L (3.5-5.1); Sodium 142 mmol/L (135-145); eGFR > 60.00
[2024-08-13] MEDS: DUONEB 3 ML INH ×4 (07:12→19:10)
[2024-08-13] MEDS: PULMICORT 0.5 MG INH ×2 (07:12→19:10)
[2024-08-13 08:02] LABS: Carbon Dioxide 47 mmol/L (22-30)
[2024-08-13] MEDS: TOPROL XL 25 MG PO (08:20)
[2024-08-13] MEDS: ZOLOFT 100 MG PO (08:21)
[2024-08-13] MEDS: DESENEX/MITRAZOL/ZEASORB 1 APPLIC TOPICAL ×2 (08:21→20:15)
[2024-08-13] MEDS: LASIX 80 MG IV ×2 (08:21→18:09)
[2024-08-13] MEDS: CASODEX 50 MG PO (08:21)
[2024-08-13] MEDS: KCL 10 MEQ PO (08:21)
[2024-08-13] MEDS: LOW STRENGTH ASPIRIN 81 MG PO (08:21)
[2024-08-13] MEDS: NORVASC 5 MG PO (08:21)
--- NOTE | 2024-08-13 09:09 | W.PN.PUL.V3 ---
Today's Communication / Plan
-
Wean oxygen
Diuresis as tolerated
BiPAP as tolerated
Replete electrolytes
Long-term prognosis unfortunately poor
Outpatient pulmonary follow-up
Assessment
-
Patient is a 73 year old M with previous history of severe COPD/emphysema, chronic hypoxemia, obesity, suspected RICARDO/OHS (refused testing), noncompliance presenting to ER with cough and hypoxemia. Presents from [facility], with hypoxemia,
placed on 8-10L NC with sats in low 90s. He has a history of baseline use of 4L but would intermittently refused to use it. Last seen in our office in February, has history of severe COPD. He does not follow up recommendations for testing/treatment.
Acute on chronic hypoxic and hypercarbic respiratory failure
ABG 7.3284, prior 7
Acute HF exacerbation, proBNP 67030
Acute on chronic SOB/cough
Medical noncompliance
Advanced COPD with chronic hypercapnic and hypoxemic respiratory failure
Not compliant with oxygen therapy
Declined noninvasive mechanical ventilator
Obesity hypoventilation syndrome suspected
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
Coronary disease with history of LAD stent and elevated filling pressures per catheterization December 2021
Noncompliance, refusal of treatment
Severe COPD/emphysema, GOLD IV
FEV1 30%
Follows with Dr. Marte in OP last seen 02/2024
Chronic hypoxemia, on 4L
Severe pulm hypertension, PA pressure 70-likely due to chronic hypercapnic respiratory failure/advanced COPD
Poor compliant with oxygen.
RV dysfunction/dilation per echo 04/01/23
Suspect RICARDO/OHS, never had sleep study/declined testing
Prostate cancer
Incomplete right bundle branch block
Obesity
Prot mirabilis UTI
Lower extremity cellulitis
Plan:
Respiratory decompensation multifactorial-advanced COPD/volume overload/severe pulm hypertension
Supplemental oxygen as needed-currently up to 8 L-was on 4 L in the outpatient setting DuoNebs continue
Pulmicort nebulizers
Mucolytic's
Monitor off steroids
Aspiration precautions
BiPAP at night and during the daytime as needed
Avoid oversedation
He understands high risk of readmission and without noninvasive mechanical ventilation. Multiple extensive discussion with him in the outpatient setting and during this admission.
Patient has repeatedly stated he has no intention to continue BPAP as outpatient: we have discussed hospice but he does not believe he is ill
He does not feel he has any issue with his lungs, he is in 'perfect health.'
He does not wish to change his code status and does not have family/medical POA designation (he says he has no children or siblings, despite sister is contact). He feels he does not need anyone.
He is not ready for hospice despite his level of noncompliance.
Diuresis as tolerated
Monitor renal function, electrolytes, intake/output, lower extremity edema and weight
Replace electrolytes as needed
Cardiology following-correspondence reviewed
Check cultures
Brief course of antibiotics for bronchitis
DVT prophylaxis: Lovenox
Nutrition
Early mobilization/physical therapy
Suspect that patient has obesity hypoventilation syndrome/RICARDO combined with severe obstructive lung disease based on outpatient records
He has refused therapy in the past including oxygen, treatment for sleep apnea, inhaler therapy
Prior conversations:
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
Noted full code status
Will benefit from C discussion with family, given his multiple comorbidities and persistent medical noncompliance. He may be at increased risk for prolonged mechanical ventilation and associated complications. In my humble opinion he should be
DNR/DNI.
This was discussed with him and care team on prior visits
Tried to discuss all above with Mr Styles again today, unfortunately he has very poor insight
Not much else to offer.
Follow up with Dr. Marte after discharge known to have poor compliance with therapy, unable to afford medications, poor compliant with oxygen, refusing BiPAP, last time seen in June 2024 with SHIPPER/RECEIVER.
Diagnostic Data
CXR 08/08/24- Cardiomegaly. Radiographic findings felt to most likely represent pulmonary edema.
CXR 03-31-23 (portable) c/w 01-16-22 (PA/lat): Old films with no infiltrates. Current film slightly lordotic/rotated. R basilar linear atelectasis, mild pulm vasc congestion
PET CT 01-17-23 IMPRESSION: [Marked uptake of activity in the prostate gland suspicious for malignancy.] Extension of malignancy to involve the seminal vesicles cannot be excluded on the basis of this study. Coronary artery calcifications and
sigmoid diverticulosis. Please note, evaluation may be limited with possible false negative results in light of the large volume of activity seen in the prostate gland.
R leg doppler 03-31-23: negative
TTE 04-01-23 CONCLUSIONS: Normal left ventricular chamber size. Normal left ventricular systolic function. Left ventricular ejection fraction is 55% by visual estimate. Normal regional wall motion. Mild concentric left ventricular hypertrophy. Stage
II diastolic dysfunction suggestive of abnormal relaxation and increased filling pressures. Moderately dilated right ventricle with moderately reduced systolic function. Dilated right atrium. Mild to moderate tricuspid regurgitation. Estimated
pulmonary artery pressure of 70 mmHg assuming a right atrial pressure of 15 mmHg. Compared to prior study dated 01/18/22 which was directly reviewed, LV function was previously hyperdynamic, otherwise no significant change.
Total time spent on this encounter __52__ minutes which includes review of history, physical exam, medications, laboratory data, personal review of imaging, extensive review of outpatient records, discussion with care team and respiratory therapy.
Subjective Data
-
Date of Service:
Date of Service: August 13, 2024
Chief Complaint: Pulmonary Follow Up and Dyspnea Follow Up
Subjective:
Increased FiO2 requirements, denies any shortness of breath, chest pain or abdominal pain
Review of Systems
General: Other (Per HPI)
Objective Data
Data Reviewed
Vital Signs / I&O:
Vital Signs
Temp Pulse Resp BP Pulse Ox
98.2 F 69 17 103/54 90
12/16/24 03:53 08/13/24 07:32 08/13/24 07:32 08/13/24 06:00 08/13/24 08:05
Intake and Output
08/12/24 08/13/24 08/14/24
06:59 06:59 06:59
Intake Total 1405 / 1405 1375 / 1375
Output Total 1100 / 1100 625 / 625
Balance 305 / 305 750 / 750
SaO2: 90
Nasal Cannula flow liters per minute: 12
Physical Exam
General: Respiratory Distress (n), Comfortable (at rest) and Other (NAD)
HEENT: Normocephalic, Anicteric and Moist Mucous Membranes
Cardiovascular: Regular Rhythm
Respiratory: Clear ( diminished breath sounds and prolonged expiratory time), Wheeze (n), Crackles (Few basilar), Rhonchi and Non-Labored Respirations
GI: Soft, Non Distended and Non Tender
Neurology: Awake, Alert and No Motor Deficits
Skin: Warm, Dry, Good Color, Cyanosis (n) and Jaundice (n)
Labs/Micro/Reports
Lab Data
08/13/24 05:18
08/13/24 05:18
Microbiology
08/08/24 12:08 Blood/Venous Blood Culture - Preliminary
No Growth in 4 days- Final report to follow
08/08/24 12:08 Blood/Venous Blood Culture - Preliminary
No Growth in 4 days- Final report to follow
08/09/24 04:58 Nose MRSA Screen - Final
No Methicillin Resistant Staphylococcus aureus isolated.
[2024-08-13] MEDS: VIBRAMYCIN 100 MG PO ×2 (14:24→20:16)
--- NOTE | 2024-08-13 14:24 | W.PN.CARDCBS ---
Addendum entered and electronically signed by Ranjan Kelley DO 08/13/24 17:51:
I saw and examined the patient.
The Decorating Machine Operator's note was reviewed and I agree with the note.
Comment:
Plan:
Continues to improve.
Transition to oral lasix 60 mg BID tomorrow.
Outpt follow up being arranged.
Cont med tx of NonMI trop
Consider outpt ischemic eval.
Please recall if needed.
Original Note:
Today's Communication / Plan
-
Transition to oral diuretics tomorrow
Impression / Plan
-
PCP: Dr. Leiva
Primary Cell Attendant Helper: Dr. Kelley
Impression:
Admitted with acute on chronic hypoxic respiratory failure, multifactorial
placed on iPAP 08/08/24
Possible PNA
Elevated Troponin in the setting of HFPEF, COPD; no reported CP
- Troponin peak 0.569
Acute on chronic HFpEF
CAD with ND s/p 3 mm Synergy BENNY to mid to mid-distal LAD and residual 50-60% RCA lesion by cath 12/2021
Severe COPD
Chronic hypoxic respiratory failure on 3 L NC continuously
Hypertension
Hyperlipidemia
Obesity
Suspected obstructive sleep apnea
Prostate cancer
History of hematuria
Anxiety
Former smoker
Possible bipolar disorder
ECHO 01/18/22: EF 65 to 70%, hyperdynamic LV function, mild concentric LVH, stage I diastolic dysfunction, enlarged RV, mild TR, PAP 65 mmHg, moderate pulmonary hypertension
Echo 04/09/24: EF 68%, mild LVH, severe PHTN with PAP 67 mmHg, compared to echo 03/2023 no significant change
Echo 08/09/24: EF 55%, TDS, normal LV function, mild LVH, dilated RV with low normal RV sys pressure, mild TR with PASP 65-70 mmHg
Review of telemetry: Normal sinus rhythm with PVCs, occasional bigeminy
Chest x-ray 08/13/2024, improvement in pulmonary edema
Plan:
-Weights overall down, but are done using bed scale so not sure how accurate they are, down another pound today to 231 pounds. Was 244 pounds on admission 08/08/2024.
-Creatinine stable at 0.8, BUN trending up at 43.
-Remains on Lasix 80 mg IV BID, trial change to Lasix 60 mg p.o. twice daily starting tomorrow- I entered order
-Patient was taking Lasix 40 mg PO BID prior to admission-will likely need higher dose on discharge
-Transitioned to Toprol XL 25 mg daily 08/11/24 PM, tolerating.
-Patient is not chronically on KINDRA/ARB/ARNI, but was previously on lisinopril in 03/2022, but it was stopped due to hypotension.
-Troponin 0.234 initially and then peaked at 0.569. ECG 08/09/2024 without acute ischemic changes. Will manage as a nonischemic myocardial injury Troponin elevation.
-Patient with chronic hypoxic respiratory failure and chronically on 3 L NC, Reviewed pulmonary note, BiPAP has been recommended at night but patient declines to continue in outpatient setting.
HPI: Patient came to [facility] today with increased SOB and decreased responsiveness and cardiology is consulted for possible acute HF. Patient lives at [facility] as a long-term resident, but was able to make it to an outpatient
cardiology office visit on 07/31/24 and appeared to be doing well at that time. Patient was asked to continue Lasix 40 mg PO BID which is handled by his senior living staff. It's not clear what has happened in the last 8 days because patient is not
answering in-depth questions. correction told EMS that patient had a cough and his pulse ox was low so they called 911. EMS told the ER staff that when they arrived the patient had a low pulse ox and was minimally responsive, but that patient
improved with NRB. CXR in the ER looks like acute HF. Troponin also elevated, but no reports of chest pain. COVID and influenza negative.
Progress Note - Cell Attendant Helper
Subjective
Date of Service: August 13, 2024
Patient sitting in chair, eating lunch.
Denies shortness of breath. Intermittent cough
Denies chest pain, palpitations, lightheadedness
Remains on IV Lasix, weight down another pound overnight, total 13 pounds since admission
Objective
Labs:
08/13/24 05:18
08/13/24 05:18
Labs
Hgb 12.9 g/dL (13.0-18.0) L 08/13/24 05:18
Hct 42.6 % (39.0-52.0) 08/13/24 05:18
Plt Count 232 10^3/uL (130-400) 08/13/24 05:18
Sodium 142 mmol/L (135-145) 08/13/24 05:18
Potassium 4.4 mmol/L (3.5-5.1) D 08/13/24 05:18
BUN 43 mg/dl (9-20) H 08/13/24 05:18
Creatinine 0.8 mg/dL (0.7-1.3) 08/13/24 05:18
Glucose 101 mg/dl (70-99) H 08/13/24 05:18
Vital Signs and I&O:
Vital Signs
Temp Pulse Resp BP Pulse Ox
97.8 F 64 18 106/67 91
08/13/24 07:50 08/13/24 12:00 08/13/24 12:00 08/13/24 12:00 08/13/24 13:46
Vital Signs
Temp Pulse Resp BP Pulse Ox
97.8 F 64 18 106/67 91
08/13/24 07:50 08/13/24 12:00 08/13/24 12:00 08/13/24 12:00 08/13/24 13:46
Intake & Output
08/11/24 08/12/24 08/13/24 08/14/24
06:59 06:59 06:59 06:59
Intake Total 740 / 740 1405 / 1405 1375 / 1375
Output Total 750 / 750 1100 / 1100 625 / 625
Balance -10 / -10 305 / 305 750 / 750
Physical Exam
Physical Exam
GEN: No distress, awake, Ox3
HEENT: supple, anicteric, mmm
LUNGS: Expiratory wheeze
CV: Reg, occasional ectopic beats S1/S2, no murmur
ABD: soft, BS+, NT/ND
EXT: No edema
NEURO: Gross non-focal
SKIN: No rash
--- NOTE | 2024-08-13 16:00 | PTCARENOTE ---
Pt presents as assessed. Aox3, forgetful. NSR on tele monitor. Sating low 90's on 8L MFNC. Grossly incontinent of urine, selwyn care completed. OOB to chair. Bed alarm in place for safety, call thompson within reach.
--- NOTE | 2024-08-13 16:19 | W.PN.HOSP.TC ---
Addendum entered and electronically signed by Alida Patton MD 08/15/24 07:35:
stage 2 PI sacrum
Original Note:
Today's Communication/Plan
-
wean oxygen to 3-4
Will discuss with pulmonary if he needs BiPAP set [facility] at the [facility]
Continue diuresis
Assessment / Plan
Assessment / Plan
73-year-old male with cough and shortness of breath. Patient is from [facility] he was hypoxic and placed on BiPAP in the ER
CVS: S1-S2 normal
Chest: CTA B/L
Abdomen: Soft, NT / Bowel sounds present
Extremities: No edema
# Acute on chronic hypoxic/acute on chronic hypercapnic respiratory failure patient was obtunded in the ER
On 3-4 L of oxygen as outpatient, now on 8 L
Chest x-ray no infiltrates
Suspected heart failure related. Normalized pH improved hypercapnia. Now wearing and tolerating HS BiPAP.
Improved weight since admission. Continue diuretics per cardiology
# COPD with no acute flare
CXR without focal pneumonia.
Suspect recent bronchitis -pt with post infectious cough which seems to be productive. Complete 7 days of doxycycline..
Procalcitonin not elevated
COVID and influenza screen negative
Continue with the nebulizers. Pulmonary holding off on steroids.
# Acute on chronic HFpEF
Echo 08/09/2024-EF 55%, mild LVH,Dilated right ventricle with low normal RV systolic function Estimated pulmonary artery pressure of 65-70 mmHg assuming a right atrial pressure of 3 mmHg.
Continue metoprolol
Improving wt since adx
Continue IV Lasix for now per cardio
Not on KINDRA/ARB/ARNI
# Hypokalemia -repleted
# Elevated troponin-likely nonischemic myocardial injury secondary to above
# Coronary disease with history of NJ and drug-eluting stents to LAD. Residual RCA lesion by cath 2021
# Hypertension-continue amlodipine, metoprolol
# Hyperlipidemia/atherosclerosis-continue statin
# Anxiety/Bipolar disorder-continue sertraline
# Obesity
# Suspected sleep apnea- not on PAP as OP as pt does not want.
# Pulmonary hypertension
# History of prostate cancer and h/o hematuria-on bicalutamide. Continue .
# Ex-smoker
# Full code
Anticipated Discharge: 24 - 48 hours
Subjective/Interval History
-
Date of Service: August 13, 2024
Objective Data
-
Labs:
Laboratory Results
08/13/24
05:18
WBC 7.1
Hgb 12.9 L
Hct 42.6
Plt Count 232
Sodium 142
Potassium 4.4 D
Chloride 87 L
Carbon Dioxide 47 H
BUN 43 H
Creatinine 0.8
Glucose 101 H
Calcium 8.6
Vital Signs:
Vital Signs
Temp Pulse Resp BP Pulse Ox
98.1 F 74 18 106/67 93
08/13/24 11:50 08/13/24 15:10 08/13/24 15:10 08/13/24 12:00 08/13/24 15:10
I&O
08/12/24 08/13/24 08/14/24
06:59 06:59 06:59
Intake Total 1405 / 1405 1375 / 1375
Output Total 1100 / 1100 625 / 625
Balance 305 / 305 750 / 750
--- NOTE | 2024-08-13 16:33 | CM ---
Patient from [facility]. O2 10L midflow. BiPAP. Receiving IV Lasix. IV Doxycycline completed today. PT/OT recommend skilled rehab.
Per Dr Pattno's notes, possible need for BiPAP at SNF.
Plan watch for O2 and BiPAP needs for d/c.
Plan return to [facility] when medically ready and insurance auth obtained.
[2024-08-13] MEDS: LOVENOX 40 MG SC (18:08)
[2024-08-13] MEDS: LIPITOR 20 MG PO (20:16)
[2024-08-14] VITALS (18 sets, daily range): BP systolic 98–131; BP diastolic 47–72; PULSE 2–92; O2SAT 81–94; BMI 29.1
--- NOTE | 2024-08-14 02:46 | PTCARENOTE ---
Assumed care for patient overnight, received report from dayshift RN. AAOx3 forgetful at times. NSR on tele with occasional PVC's. RT put patient on BiPAP and is tolerating overnight. O2 st 99%. One episode of incontinence of urine, saturated.
Perineal care done. Bed alarm on. Pt using the call thompson appropriately. Call thompson is within reach.
[2024-08-14] MEDS: PULMICORT 0.5 MG INH ×2 (07:20→19:50)
[2024-08-14] MEDS: DUONEB 3 ML INH ×4 (07:20→19:50)
[2024-08-14] MEDS: ZOLOFT 100 MG PO (08:21)
[2024-08-14] MEDS: VIBRAMYCIN 100 MG PO ×2 (08:21→19:42)
[2024-08-14] MEDS: TOPROL XL 25 MG PO (08:21)
[2024-08-14] MEDS: LASIX 60 MG PO ×2 (08:21→16:51)
[2024-08-14] MEDS: CASODEX 50 MG PO (08:21)
[2024-08-14] MEDS: KCL 10 MEQ PO (08:21)
[2024-08-14] MEDS: NORVASC 5 MG PO (08:21)
[2024-08-14] MEDS: DESENEX/MITRAZOL/ZEASORB 1 APPLIC TOPICAL ×2 (08:22→19:42)
[2024-08-14] MEDS: LOW STRENGTH ASPIRIN 81 MG PO (08:22)
--- NOTE | 2024-08-14 08:48 | PTCARENOTE ---
POx alarming 82% on 6L MF- dozing off to sleep- rises to 90% with encouraged deep breathing. Frequent Repetitive cycles - O2 raised to 7L unchanged, 8L maintaining 86% - increased to 9L maintaining 87-88%.
--- NOTE | 2024-08-14 09:49 | W.PN.PUL.V3 ---
Today's Communication / Plan
-
Wean oxygen
Continue BiPAP at night
Patient has been repeatedly reluctant to use BiPAP in the outpatient setting-today Dr. Alfaro had lengthy conversation with nursing present and now states he would be willing to use BiPAP in the outpatient setting
Case management involved-we will hopefully be discharged on BiPAP and hopefully patient will be compliant
Assessment
-
Patient is a 73 year old M with previous history of severe COPD/emphysema, chronic hypoxemia, obesity, suspected RICARDO/OHS (refused testing), noncompliance presenting to ER with cough and hypoxemia. Presents from [facility], with hypoxemia,
placed on 8-10L NC with sats in low 90s. He has a history of baseline use of 4L but would intermittently refused to use it. Last seen in our office in February, has history of severe COPD. He does not follow up recommendations for testing/treatment.
Acute on chronic hypoxic and hypercarbic respiratory failure
ABG 7.32, prior
Acute HF exacerbation, proBNP [id number]
Acute on chronic SOB/cough
Medical noncompliance
Advanced COPD with chronic hypercapnic and hypoxemic respiratory failure
Not compliant with oxygen therapy
Declined noninvasive mechanical ventilator
Obesity hypoventilation syndrome suspected
Conditions present AIRLINE OPERATIONS AGENT:
Coronary disease with history of LAD stent and elevated filling pressures per catheterization December 2021
Noncompliance, refusal of treatment
Severe COPD/emphysema, GOLD IV
FEV1 30%
Follows with Dr. Marte in OP last seen 02/2024
Chronic hypoxemia, on 4L
Severe pulm hypertension, PA pressure 70-likely due to chronic hypercapnic respiratory failure/advanced COPD
Poor compliant with oxygen.
RV dysfunction/dilation per echo 04/01/23
Suspect RICARDO/OHS, never had sleep study/declined testing
Prostate cancer
Incomplete right bundle branch block
Obesity
Prot mirabilis UTI
Lower extremity cellulitis
Plan:
6-
Respiratory decompensation multifactorial-advanced COPD/volume overload/severe pulm hypertension
Supplemental oxygen as needed-currently up to 8 L-was on 4 L in the outpatient setting DuoNebs continue
Pulmicort nebulizers
Mucolytic's
Continue to monitor off steroids
Aspiration precautions
BiPAP at night and during the daytime as needed
Avoid oversedation
He understands high risk of readmission and without noninvasive mechanical ventilation.
Multiple extensive discussion with him in the outpatient setting and during this admission.
Patient has repeatedly stated he has no intention to continue BPAP as outpatient: we have discussed hospice but he does not believe he is ill
He does not feel he has any issue with his lungs, he is in 'perfect health.'
He does not wish to change his code status and does not have family/medical POA designation (he says he has no children or siblings, despite sister is contact). He feels he does not need anyone.
He is not ready for hospice despite his level of noncompliance.
Dr. Alfaro readdressed with nursing-Cyn ordoñez-explained the need for BiPAP which she is tolerating, he would 'prefer not using it', however, he states that he would use it in the outpatient setting after it was once again over a lengthy period
time explained it would help with CO2 elimination and hopefully prevent repetitive readmissions, etc.-reluctantly he states he would be willing to use BiPAP
Patient has end-stage COPD with multiple emergency room and hospitalizations with chief complaint of shortness of breath and respiratory failure. The patient has a pCO2 of greater than 60 on 2 L oxygen and needs continuous oxygen supplementation.
Patient reports shortness of breath with minimal activity and reports significant reduction in activities of daily living. Due to the patient's COPD and hypoventilation patient is at risk of worsening chronic respiratory failure. I have considered
bilevel, bilevel ST and bilevel VAPS therapy and they have been ruled out due to the patient's worsening condition. The patient now requires a unique mode of ventilation not offered by less costly options. The patient requires a device that will
not fail in the event of power failure and also portable for mobility within the home when needed. Due to the patient's worsening condition I am prescribing noninvasive ventilation therapy to decrease the chance of continued unplanned expensive
medical encounters including physician office visits, emergency/urgent care treatments and hospital readmissions.
Diuresis continues as tolerated
Monitor renal function, electrolytes, intake/output, lower extremity edema and weight
Replace electrolytes as needed
Cardiology following-correspondence reviewed
Check cultures
Brief course of antibiotics for bronchitis
DVT prophylaxis: Lovenox
Nutrition
Early mobilization/physical therapy
Suspect that patient has obesity hypoventilation syndrome/RICARDO combined with severe obstructive lung disease based on outpatient records
He has refused therapy in the past including oxygen, treatment for sleep apnea, inhaler therapy-now potentially willing
Prior conversations:
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
Noted full code status
Will benefit from GOC discussion with family, given his multiple comorbidities and persistent medical noncompliance. He may be at increased risk for prolonged mechanical ventilation and associated complications. In my humble opinion he should be
DNR/DNI.
This was discussed with him and care team on prior visits
Tried to discuss all above with Mr Styles again today, unfortunately he has very poor insight
Not much else to offer.
Follow up with Dr. Marte after discharge known to have poor compliance with therapy, unable to afford medications, poor compliant with oxygen, refusing BiPAP, last time seen in June 2024 with WINCH OPERATOR.
Diagnostic Data
CXR 08/08/24- Cardiomegaly. Radiographic findings felt to most likely represent pulmonary edema.
CXR 03-31-23 (portable) c/w 01-16-22 (PA/lat): Old films with no infiltrates. Current film slightly lordotic/rotated. R basilar linear atelectasis, mild pulm vasc congestion
PET CT 01-17-23 IMPRESSION: [Marked uptake of activity in the prostate gland suspicious for malignancy.] Extension of malignancy to involve the seminal vesicles cannot be excluded on the basis of this study. Coronary artery calcifications and
sigmoid diverticulosis. Please note, evaluation may be limited with possible false negative results in light of the large volume of activity seen in the prostate gland.
R leg doppler 03-31-23: negative
TTE 04-01-23 CONCLUSIONS: Normal left ventricular chamber size. Normal left ventricular systolic function. Left ventricular ejection fraction is 55% by visual estimate. Normal regional wall motion. Mild concentric left ventricular hypertrophy. Stage
II diastolic dysfunction suggestive of abnormal relaxation and increased filling pressures. Moderately dilated right ventricle with moderately reduced systolic function. Dilated right atrium. Mild to moderate tricuspid regurgitation. Estimated
pulmonary artery pressure of 70 mmHg assuming a right atrial pressure of 15 mmHg. Compared to prior study dated 01/18/22 which was directly reviewed, LV function was previously hyperdynamic, otherwise no significant change.
Total time spent on this encounter __52__ minutes which includes review of history, physical exam, medications, laboratory data, personal review of imaging, extensive review of outpatient records, discussion with care team and respiratory therapy.
Subjective Data
-
Date of Service:
Date of Service: August 14, 2024
Chief Complaint: Pulmonary Follow Up and Dyspnea Follow Up
Subjective:
Tolerating BiPAP at night, long conversation with him-willing to try as an outpatient, no complaints of shortness of breath at rest, chest congestion, productive cough, or abdominal pain
Review of Systems
General: Other (Per HPI)
Objective Data
Data Reviewed
Vital Signs / I&O:
Vital Signs
Temp Pulse Resp BP Pulse Ox
98.3 F 62 29 117/65 82
08/14/24 07:31 08/14/24 08:00 08/14/24 08:00 08/14/24 08:00 08/14/24 08:44
Intake and Output
08/13/24 08/14/24 08/15/24
06:59 06:59 06:59
Intake Total 1375 / 1375 240 / 240
Output Total 625 / 625
Balance 750 / 750 240 / 240
SaO2: 82
Nasal Cannula flow liters per minute: 6
Physical Exam
General: Respiratory Distress (n), Comfortable (at rest) and Other (NAD)
HEENT: Normocephalic, Anicteric and Moist Mucous Membranes
Cardiovascular: Regular Rhythm
Respiratory: Clear ( diminished breath sounds and prolonged expiratory time), Wheeze (n), Crackles (Few basilar), Rhonchi and Non-Labored Respirations
GI: Soft, Non Distended and Non Tender
Neurology: Awake, Alert and No Motor Deficits
Skin: Warm, Dry, Good Color, Cyanosis (n) and Jaundice (n)
Labs/Micro/Reports
Lab Data
08/13/24 05:18
08/13/24 05:18
Microbiology
08/08/24 12:08 Blood/Venous Blood Culture - Final
No Growth - Final Report
08/08/24 12:08 Blood/Venous Blood Culture - Final
No Growth - Final Report
--- NOTE | 2024-08-14 11:02 | W.HF.CON ---
Heart Failure
- LV Function
Left ventricular function study result: LV Ejection fraction >/= 50%
Ejection Fraction Percentage: 55
- ARNI
Patient already on ARNI: No
Heart Failure ARNI Not Indicated: LV Ejection Fraction >/= 40%
- ACEI/ARB
Patient already on ACEI/ARB: No
Heart Failure ACEI/ARB Not Indicated: LV Ejection Fraction > 40%
- Beta Travis
Patient already on Evidence Based Beta Travis: Yes
- Mineralocorticord Receptor Antagonist
Patient already on MRA: No
Heart Failure MRA Not Indicated: LV Ejection Fraction > 40%
- SGLT-2 Inhibitor
Patient already on SGLT-2 Inhibitor: No
Heart Failure SGLT-2 Inhibitor Not Indicated: LV Ejection Fraction >40%
- NYHA CHF Classification
NYHA CHF Classification Level: Class III - Symptoms w/ min exertion, interferes w/ nml daily activity (COPD)
- ACC/AHA Stage
ACC/AHA Stage: Stage C: Symptomatic Heart Failure
--- NOTE | 2024-08-14 12:22 | PN.CDI ---
CDI
- -
CDI:
Physician Documentation Request
Admit Date: 08/08/24 14:46
Dear Doctor Abdi,
Please review the following and provide your response in the progress notes.
Clinical Indicators:
Selected Entries
08/08/24
18:17
Pressure injury stage [Present on admission Right Buttock] Stage 2
Physician documentation of the type and location of wounds is required for compliant documentation. Based on the above clinical findings and your assessment, please provide the following in your progress note:
Location of the ulcer/wound, including laterality.
Type (etiology) of ulcer/wound:
- Diabetic ulcer
- Pressure (decubitus) ulcer
- Other(please specify)
For a pressure ulcer, please also include the stage* of the ulcer:
- Stage 1 - Skin intact, non-blanchable redness
- Stage 2 - Partial thickness loss of dermis, includes intact or open blister
- Stage 3 - Full thickness tissue not including bone, tendon or muscle
- Stage 4 - Full thickness tissue loss, including exposed bone, tendon or muscle
- Unstageable - Full thickness loss in which the base of the ulcer is covered by slough (yellow, silverio, perez, green or brown) and/or eschar (silverio, brown or black) in the wound bed.
Use of terms such as suspected, likely, concern for, or probable (associated with a specific diagnosis that is being evaluated, monitored, or treated as if it exists) are acceptable and can be coded in the inpatient setting, when documented at the
time of discharge.
Thank you,
Mary Balderas RN BSN CCDS
CDI Specialist
please contact via tiger text
Please use your independent medical judgment in providing your response.
--- NOTE | 2024-08-14 15:15 | W.PN.HOSP.TC ---
Today's Communication/Plan
-
Patient had a course of antibiotics and now on p.o. Lasix
I wonder if he needs steroids for COPD exacerbation as he is still on 8 L of oxygen.
Patient is now agreeable for BiPAP at the [facility]
Case management aware
Assessment / Plan
Assessment / Plan
73-year-old male with cough and shortness of breath. Patient is from [facility] he was hypoxic and placed on BiPAP in the ER
CVS: S1-S2 normal
Chest: CTA B/L
Abdomen: Soft, NT / Bowel sounds present
Extremities: No edema
# Acute on chronic hypoxic/acute on chronic hypercapnic respiratory failure patient was obtunded in the ER
On 3-4 L of oxygen as outpatient, now on 8 L
Chest x-ray no infiltrates
Suspected heart failure related. Normalized pH improved hypercapnia. Now wearing and tolerating HS BiPAP.
Improved weight since admission. Continue diuretics per cardiology
# COPD with no acute flare
CXR without focal pneumonia.
Suspect recent bronchitis -pt with post infectious cough which seems to be productive. Complete 7 days of doxycycline..
Procalcitonin not elevated
COVID and influenza screen negative
Continue with the nebulizers. Pulmonary holding off on steroids.
As he is completed with IV diuretics and transition to p.o. at this point I am wondering if he has an element of COPD exacerbation and needs steroids. I have sent a message to pulmonary.
# Acute on chronic HFpEF
Echo 08/09/2024-EF 55%, mild LVH,Dilated right ventricle with low normal RV systolic function Estimated pulmonary artery pressure of 65-70 mmHg assuming a right atrial pressure of 3 mmHg.
Continue metoprolol
Improving wt since adx
Lasix changed to p.o.
Not on KINDRA/ARB/ARNI
# Hypokalemia -Repleted
# Elevated troponin-likely nonischemic myocardial injury secondary to above
# Coronary disease with history of [place] and drug-eluting stents to LAD. Residual RCA lesion by cath 2021
# Hypertension-continue Amlodipine, Metoprolol
# Hyperlipidemia/atherosclerosis-Continue statin
# Anxiety/Bipolar disorder-Continue sertraline
# Obesity
# Suspected Sleep Apnea-Patient is now agreeable to wear BiPAP at night. Case management will let rehab know to arrange this. Pulmonary has completed paperwork/documentation for this.
# Pulmonary Hypertension
# History of prostate cancer and h/o hematuria-on bicalutamide. Continue .
# Ex-smoker
# Full code
Discussed with case management
Discussed with pulmonary
Sister updated on the phone
Anticipated Discharge: 24 - 48 hours
Subjective/Interval History
-
Date of Service: August 14, 2024
Objective Data
-
Vital Signs:
Vital Signs
Temp Pulse Resp BP Pulse Ox
98.2 F 68 24 108/57 92
08/14/24 11:57 08/14/24 14:00 08/14/24 14:00 08/14/24 14:00 08/14/24 14:00
I&O
08/13/24 08/14/24 08/15/24
06:59 06:59 06:59
Intake Total 1375 / 1375 240 / 240
Output Total 625 / 625
Balance 750 / 750 240 / 240
--- NOTE | 2024-08-14 15:58 | CM ---
Patient from [facility]. O2 9L midflow. BiPAP. Receiving SQ Lovenox, IV Solumedrol. PT/OT recommend skilled rehab.
Message from Dr Patton; patient will need BiPAP at SNF. Patient will probably be ready for d/c on 08/16.
Phone call to Adm Juanitas [facility]; left message with request to order BiPAP. Placed referral in [facility] with BiPAP settings.
Spoke with CHAS Sheffield (ph [phone]); initiated SNF auth request. [employer] Reference # [id number]. CM has 14 days to submit clinical to fax [phone].
Message to Darrick PT & Liliana OT requesting updated therapy notes by tomorrow for insurance auth.
Plan fax clinicals to [facility] for SNF auth tomorrow, once updated therapy notes are available.
Plan return to [facility] with BiPAP on 08/16 once insurance approves.
[2024-08-14] MEDS: SOLU-MEDROL PF 40 MG IV (16:50)
[2024-08-14] MEDS: LOVENOX 40 MG SC (16:51)
--- NOTE | 2024-08-14 18:23 | PTCARENOTE ---
OOB this shift x2-, Ox3 however poor insight to overall health. LC diminished throughout. Remains on 9L MF POX 87-90%. SR with freq PVCs / bigeminy/ trigeminy on tele. Appetite good, large BM on commode but voided large amt on floor. IV
Solumedrol started this pm. Side effects reviewed.
[2024-08-14] MEDS: LIPITOR 20 MG PO (19:42)
--- NOTE | 2024-08-14 23:02 | PTCARENOTE ---
Addendum entered by Jennifer Ambrose RN 08/15/24 04:49:
RT bedside. Pt willing to get back on BiPAP and is back on BiPAP, will return to midflow during the day. Pt tolerating.
Addendum entered by Jennifer Ambrose RN 08/15/24 03:09:
Patient ripped off BiPAP and states 'I want this completely off'. Pt desatting to low 80s. Attempted to educate and calm but pt increasingly agitated and frustrated. RT made aware. Pt back on Midflow 10L and quickly recovered. O2 sat 93%.
Original Note:
Assumed care for patient overnight, received report from dayshift RN. Pt AAOx3, forgetful at times but able to answer all orientation questions correctly. NSR on tele with PVCs trigeminy. RT put patient on BiPAP and attempting to wean down oxygen.
Pt 94% O2 sat. Pt in the chair at change of shift. Pt OOB to bedside commode with rolling walker and 1 person assist. Small BM, small amounts of clear yellow urine. Assisted patient with oral care and washed face. Bed alarm on. Call thompson is within
reach.
[2024-08-15] VITALS (14 sets, daily range): BP systolic 100–178; BP diastolic 48–93; PULSE 2–70; BMI 29.1
[2024-08-15] MEDS: SOLU-MEDROL PF 40 MG IV ×2 (04:18→16:47)
[2024-08-15 06:00] LABS: Blood Urea Nitrogen 43 mg/dl (9-20); Calcium 9.2 mg/dl (8.4-10.2); Chloride 86 mmol/L (98-107); Estimated Creatinine Clearance 94 ml/min; Glucose 136 mg/dl (70-99); Potassium 4.2 mmol/L (3.5-5.1); Sodium 138 mmol/L (135-145); eGFR > 60.00
[2024-08-15 06:20] LABS: Carbon Dioxide 40 mmol/L (22-30)
[2024-08-15] MEDS: DUONEB 3 ML INH ×4 (07:22→19:49)
[2024-08-15] MEDS: PULMICORT 0.5 MG INH ×2 (07:22→19:49)
[2024-08-15 09:14] LABS: Hematocrit 42.8 % (39.0-52.0); Hemoglobin 13.6 g/dL (13.0-18.0); Mean Corp Hgb Conc. 31.8 g/dL (33.0-37.0); Mean Corpuscular Hgb 26.5 pg (27.0-31.0); Mean Corpuscular Volume 83.4 fL (80.0-94.0); Red Blood Cell Count 5.13 10^6/uL (4.70-6.10); Red Cell Dist. Width 14.6 % (11.5-14.5); White Blood Cell Count 6.9 10^3/uL (4.8-10.8)
--- NOTE | 2024-08-15 09:50 | W.PN.PUL.V3 ---
Today's Communication / Plan
-
Wean FiO2
BiPAP
Check CT chest
Diuresis
Steroids initiated
Assessment
-
Patient is a 73 year old M with previous history of severe COPD/emphysema, chronic hypoxemia, obesity, suspected RICARDO/OHS (refused testing), noncompliance presenting to ER with cough and hypoxemia. Presents from [facility], with hypoxemia,
placed on 8-10L NC with sats in low 90s. He has a history of baseline use of 4L but would intermittently refused to use it. Last seen in our office in February, has history of severe COPD. He does not follow up recommendations for testing/treatment.
Acute on chronic hypoxic and hypercarbic respiratory failure
ABG , prior
Acute HF exacerbation, proBNP 11228
Acute on chronic SOB/cough
Medical noncompliance
Advanced COPD with chronic hypercapnic and hypoxemic respiratory failure
Not compliant with oxygen therapy
Declined noninvasive mechanical ventilator
Obesity hypoventilation syndrome suspected
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
Coronary disease with history of LAD stent and elevated filling pressures per catheterization December 2021
Noncompliance, refusal of treatment
Severe COPD/emphysema, GOLD IV
FEV1 30%
Follows with Dr. Marte in OP last seen 02/2024
Chronic hypoxemia, on 4L
Severe pulm hypertension, PA pressure 70-likely due to chronic hypercapnic respiratory failure/advanced COPD
Poor compliant with oxygen.
RV dysfunction/dilation per echo 04/01/23
Suspect RICARDO/OHS, never had sleep study/declined testing
Prostate cancer
Incomplete right bundle branch block
Obesity
Prot mirabilis UTI
Lower extremity cellulitis
Plan:
Respiratory decompensation multifactorial-advanced COPD/volume overload/severe pulm hypertension
Supplemental oxygen as needed-currently up to 10 L-was on 4 L in the outpatient setting
DuoNebs continue
Pulmicort nebulizers
Mucolytic's
Steroids initiated with ongoing wheezing despite CHF therapy-methylprednisolone 40 mg IV every 12 hours
Aspiration precautions
BiPAP at night and during the daytime as needed
Avoid oversedation
Chest x-ray 08/13/2024-interval improvement in CHF pattern
Check CT chest with PE protocol with progressive heart unexplained hypoxemia
He understands high risk of readmission and without noninvasive mechanical ventilation.
Multiple extensive discussion with him in the outpatient setting and during this admission.
Patient has repeatedly stated he has no intention to continue BPAP as outpatient: we have discussed hospice but he does not believe he is ill
He does not feel he has any issue with his lungs, he is in 'perfect health.'
He does not wish to change his code status and does not have family/medical POA designation (he says he has no children or siblings, despite sister is contact). He feels he does not need anyone.
He is not ready for hospice despite his level of noncompliance.
Dr. Alfaro readdressed with nursing-Cyn present on 08/14/2024-explained the need for BiPAP which she is tolerating, he would 'prefer not using it', however, he states that he would use it in the outpatient setting after it was once again over a
lengthy period time explained it would help with CO2 elimination and hopefully prevent repetitive readmissions, etc.-reluctantly he states he would be willing to use BiPAP
Patient has end-stage COPD with multiple emergency room and hospitalizations with chief complaint of shortness of breath and respiratory failure. The patient has a pCO2 of greater than 60 on 2 L oxygen and needs continuous oxygen supplementation.
Patient reports shortness of breath with minimal activity and reports significant reduction in activities of daily living. Due to the patient's COPD and hypoventilation patient is at risk of worsening chronic respiratory failure. I have considered
bilevel, bilevel ST and bilevel VAPS therapy and they have been ruled out due to the patient's worsening condition. The patient now requires a unique mode of ventilation not offered by less costly options. The patient requires a device that will
not fail in the event of power failure and also portable for mobility within the home when needed. Due to the patient's worsening condition I am prescribing noninvasive ventilation therapy to decrease the chance of continued unplanned expensive
medical encounters including physician office visits, emergency/urgent care treatments and hospital readmissions.
Diuresis will continues as tolerated
Monitor renal function, electrolytes, intake/output, lower extremity edema and weight
Replace electrolytes as needed
Cardiology following-correspondence reviewed
Follow cultures
Sputum culture if able
Brief course of antibiotics for bronchitis completed
DVT prophylaxis: Lovenox
Nutrition
Early mobilization/physical therapy
Suspect that patient has obesity hypoventilation syndrome/RICARDO combined with severe obstructive lung disease based on outpatient records
He has refused therapy in the past including oxygen, treatment for sleep apnea, inhaler therapy-now potentially willing
Prior conversations:
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
Noted full code status
Will benefit from GOC discussion with family, given his multiple comorbidities and persistent medical noncompliance. He may be at increased risk for prolonged mechanical ventilation and associated complications. In my humble opinion he should be
DNR/DNI.
This was discussed with him and care team on prior visits
Tried to discuss all above with Mr Styles again today, unfortunately he has very poor insight
Not much else to offer.
Follow up with Dr. Marte after discharge known to have poor compliance with therapy, unable to afford medications, poor compliant with oxygen, refusing BiPAP, last time seen in June 2024 with RN MEDICAL SURGICAL.
Diagnostic Data
CXR 08/08/24- Cardiomegaly. Radiographic findings felt to most likely represent pulmonary edema.
CXR 03-31-23 (portable) c/w 01-16-22 (PA/lat): Old films with no infiltrates. Current film slightly lordotic/rotated. R basilar linear atelectasis, mild pulm vasc congestion
PET CT 01-17-23 IMPRESSION: [Marked uptake of activity in the prostate gland suspicious for malignancy.] Extension of malignancy to involve the seminal vesicles cannot be excluded on the basis of this study. Coronary artery calcifications and
sigmoid diverticulosis. Please note, evaluation may be limited with possible false negative results in light of the large volume of activity seen in the prostate gland.
R leg doppler 03-31-23: negative
TTE 04-01-23 CONCLUSIONS: Normal left ventricular chamber size. Normal left ventricular systolic function. Left ventricular ejection fraction is 55% by visual estimate. Normal regional wall motion. Mild concentric left ventricular hypertrophy. Stage
II diastolic dysfunction suggestive of abnormal relaxation and increased filling pressures. Moderately dilated right ventricle with moderately reduced systolic function. Dilated right atrium. Mild to moderate tricuspid regurgitation. Estimated
pulmonary artery pressure of 70 mmHg assuming a right atrial pressure of 15 mmHg. Compared to prior study dated 01/18/22 which was directly reviewed, LV function was previously hyperdynamic, otherwise no significant change.
.
Subjective Data
-
Date of Service:
Date of Service: August 15, 2024
Chief Complaint: Pulmonary Follow Up and Dyspnea Follow Up
Subjective:
No complaints of worsening shortness of breath, increased FiO2 requirements, no chest pain or abdominal pain
Review of Systems
General: Other (Per HPI)
Objective Data
Data Reviewed
Vital Signs / I&O:
Vital Signs
Temp Pulse Resp BP Pulse Ox
97.6 F 58 16 178/93 97
08/15/24 02:49 08/15/24 08:00 08/15/24 08:00 08/15/24 04:00 08/15/24 08:00
Intake and Output
08/14/24 08/15/24 08/16/24
06:59 06:59 06:59
Intake Total 240 / 240 180 / 180
Output Total 100 / 100
Balance 240 / 240 80 / 80
SaO2: 97
Nasal Cannula flow liters per minute: 6
Physical Exam
General: Respiratory Distress (n), Comfortable (at rest) and Other (NAD)
HEENT: Normocephalic, Anicteric and Moist Mucous Membranes
Cardiovascular: Regular Rhythm
Respiratory: Clear ( diminished breath sounds and prolonged expiratory time), Wheeze (n), Crackles (Few basilar), Rhonchi and Non-Labored Respirations
GI: Soft, Non Distended and Non Tender
Neurology: Awake, Alert and No Motor Deficits
Skin: Warm, Dry, Good Color, Cyanosis (n) and Jaundice (n)
Labs/Micro/Reports
Lab Data
08/15/24 08:48
08/15/24 05:28
Microbiology
08/08/24 12:08 Blood/Venous Blood Culture - Final
No Growth - Final Report
08/08/24 12:08 Blood/Venous Blood Culture - Final
No Growth - Final Report
--- NOTE | 2024-08-15 09:59 | W.PN.HOSP.TC ---
Today's Communication/Plan
-
Unfortunately on 10 L of oxygen now
Check sputum cultures
Completed doxycycline
Continue IV steroids
Assessment / Plan
Assessment / Plan
73-year-old male with cough and shortness of breath. Patient is from [facility] he was hypoxic and placed on BiPAP in the ER
CVS: S1-S2 normal
Chest: CTA B/L, decreased BS
Abdomen: Soft, NT , Bowel sounds present
Extremities: No edema
# Acute on chronic hypoxic/acute on chronic hypercapnic respiratory failure patient was obtunded in the ER
On 3-4 L of oxygen as outpatient, now on 10 L
Chest x-ray no infiltrates
Suspected heart failure related. Normalized pH improved hypercapnia. Now wearing and tolerating HS BiPAP.
Improved weight since admission. Continue diuretics per cardiology
# COPD with no acute flare
CXR without focal pneumonia.
Suspect recent bronchitis -pt with post infectious cough which seems to be productive. Completed 7 days of doxycycline..
Procalcitonin not elevated
COVID and influenza screen negative
Continue with the nebulizers.
IV steroids started yesterday because of no progress despite adequate diuresis.
# Acute on chronic HFpEF
Echo 08/09/2024-EF 55%, mild LVH,Dilated right ventricle with low normal RV systolic function Estimated pulmonary artery pressure of 65-70 mmHg assuming a right atrial pressure of 3 mmHg.
Continue metoprolol
Improving wt since diuresis
Lasix changed to p.o.
Not on KINDRA/ARB/ARNI
# Hypokalemia -Repleted
# Elevated troponin-likely nonischemic myocardial injury secondary to above
# Coronary disease with history of [place] and drug-eluting stents to LAD. Residual RCA lesion by cath 2021
# Hypertension-continue Amlodipine, Metoprolol
# Hyperlipidemia/atherosclerosis-Continue statin
# Anxiety/Bipolar disorder-Continue sertraline
# Obesity
# Suspected Sleep Apnea-Patient is now agreeable to wear BiPAP at night. Case management will let rehab know to arrange this. Pulmonary has completed paperwork/documentation for this.
# Pulmonary Hypertension
# History of prostate cancer and h/o hematuria-on bicalutamide. Continue .
# Ex-smoker
# Full code
Discussed with pulmonary
Sister updated on the phone 08/14/2024
Anticipated Discharge: 24 - 48 hours
Subjective/Interval History
-
Date of Service: August 15, 2024
Objective Data
-
Labs:
Laboratory Results
08/15/24 08/15/24 08/15/24
04:15 05:28 08:48
WBC Cancelled Cancelled 6.9
Hgb Cancelled Cancelled 13.6
Hct Cancelled Cancelled 42.8
Plt Count Cancelled Cancelled
Sodium Cancelled 138
Potassium Cancelled 4.2
Chloride Cancelled 86 L
Carbon Dioxide Cancelled 40 H
BUN Cancelled 43 H
Creatinine Cancelled 0.8
Glucose Cancelled 136 H
Calcium Cancelled 9.2
Vital Signs:
Vital Signs
Temp Pulse Resp BP Pulse Ox
97.6 F 58 16 178/93 97
08/15/24 02:49 08/15/24 08:00 08/15/24 08:00 08/15/24 04:00 08/15/24 09:50
I&O
08/14/24 08/15/24 08/16/24
06:59 06:59 06:59
Intake Total 240 / 240 180 / 180
Output Total 100 / 100
Balance 240 / 240 80 / 80
[2024-08-15] MEDS: ZOLOFT 100 MG PO (10:25)
[2024-08-15] MEDS: KCL 10 MEQ PO (10:25)
[2024-08-15] MEDS: TOPROL XL 25 MG PO (10:25)
[2024-08-15] MEDS: LOW STRENGTH ASPIRIN 81 MG PO (10:25)
[2024-08-15] MEDS: CASODEX 50 MG PO (10:25)
[2024-08-15] MEDS: NORVASC 5 MG PO (10:25)
[2024-08-15] MEDS: DESENEX/MITRAZOL/ZEASORB 1 APPLIC TOPICAL ×2 (10:26→21:31)
[2024-08-15] MEDS: VIBRAMYCIN PO (10:34)
[2024-08-15] MEDS: LASIX 60 MG PO ×2 (11:22→16:46)
--- NOTE | 2024-08-15 13:44 | PTCARENOTE ---
Patient off unit for CT of chest.
--- NOTE | 2024-08-15 15:03 | CM ---
Addendum entered by Kimberlee Cotton 08/15/24 15:31:
[employer] Authorization for [facility] approved for 5 days
Battery Installer: Shyla Sterling
Reference # [id number]
Authorization ID # [id number]
Start date 08/15/24 through 08/17/2024; Next Review 08/17/2024; ; Call back # [phone]
Original Note:
Chart reviewed. Anticipated Discharge: 24 - 48 hours
Plan: Discharge to SNF when medically stable; Clinicals faxed to [employer] (fax # [phone]) this morning
[2024-08-15] MEDS: LOVENOX 40 MG SC (16:48)
[2024-08-15] MEDS: FLUSH (NSS) 1 FLUSH IV (16:51)
--- NOTE | 2024-08-15 16:55 | PTCARENOTE ---
Patient remains on 8-10L O2 via midflow. Sp02 92-94%. Patient lungs diminished throughout with intermittent expiratory wheezing. Patient INC of urine today. He is not using the urinal and not letting the RN when he needs to be changed. Patient
is oriented but in denial about his medical issues. Using call thompson appropriately.
[2024-08-15] MEDS: LIPITOR 20 MG PO (21:31)
[2024-08-16] VITALS (15 sets, daily range): BP systolic 99–131; BP diastolic 42–70; PULSE 2–65; O2SAT 94; BMI 29.3
[2024-08-16] MEDS: SOLU-MEDROL PF 40 MG IV ×2 (04:58→17:08)
--- NOTE | 2024-08-16 05:27 | PTCARENOTE ---
Patient on/off his bipap overnight. 10l midflow when bipap not on. pt goes on tangents when asked about his medical history. became angry when asked about his bipap. NSR, frequent trigeminy/bigeminy episodes. midline w/o blood return, flushed,
lumens patent. incont of large amounts of urine in diaper. requests soda/water frequently. turns self in bed. call thompson within reach.
--- NOTE | 2024-08-16 05:28 | RESPNOTE ---
PT is ordered BIPAP for HS use. Despite this being new to him, he has done pretty well over the last several days, staying on it all night. PT was found off of the BIPAP at this time and RN sts that he has been off for a few hours. When asked why
he took off the BIPA mask, he said that he sometimes wakes up and panics with the mask on. He said that he feels like the pressure is too hard to breathe with. Will review this AM for possible setting changes for PT comfort and compliance.
[2024-08-16] MEDS: PULMICORT 0.5 MG INH ×2 (07:39→19:15)
[2024-08-16] MEDS: DUONEB 3 ML INH ×4 (07:39→19:15)
[2024-08-16] MEDS: KCL 10 MEQ PO (08:29)
[2024-08-16] MEDS: CASODEX 50 MG PO (08:29)
[2024-08-16] MEDS: LOW STRENGTH ASPIRIN 81 MG PO (08:29)
[2024-08-16] MEDS: ZOLOFT 100 MG PO (08:29)
[2024-08-16] MEDS: NORVASC 5 MG PO (08:30)
[2024-08-16] MEDS: LASIX 60 MG PO ×2 (08:30→17:07)
[2024-08-16] MEDS: TOPROL XL 25 MG PO (08:31)
[2024-08-16] MEDS: DESENEX/MITRAZOL/ZEASORB 1 APPLIC TOPICAL ×2 (08:31→21:46)
[2024-08-16] MEDS: MAXIPIME 1000 MG IV ×3 (10:13→21:47)
[2024-08-16] MEDS: STERILE WATER FOR INJECTION 10 ML IV ×3 (10:14→21:47)
--- NOTE | 2024-08-16 10:22 | W.PN.PUL.V3 ---
Today's Communication / Plan
-
Attempt to wean FiO2
CT chest-significant emphysema as well as some mucous plugging and no pulmonary embolism
Intensify mucus clearing devices
No change in steroids
Continue antibiotics
Assessment
-
Patient is a 73 year old M with previous history of severe COPD/emphysema, chronic hypoxemia, obesity, suspected RICARDO/OHS (refused testing), noncompliance presenting to ER with cough and hypoxemia. Presents from [facility], with hypoxemia,
placed on 8-10L NC with sats in low 90s. He has a history of baseline use of 4L but would intermittently refused to use it. Last seen in our office in February, has history of severe COPD. He does not follow up recommendations for testing/treatment.
Acute on chronic hypoxic and hypercarbic respiratory failure
ABG 7.3284, prior 7
Acute HF exacerbation, proBNP 62079
Acute on chronic SOB/cough
Medical noncompliance
Advanced COPD with chronic hypercapnic and hypoxemic respiratory failure
Not compliant with oxygen therapy
Declined noninvasive mechanical ventilator
Obesity hypoventilation syndrome suspected
Conditions present MANAGER DATA:
Coronary disease with history of LAD stent and elevated filling pressures per catheterization December 2021
Noncompliance, refusal of treatment
Severe COPD/emphysema, GOLD IV
FEV1 30%
Follows with Dr. Mrate in OP last seen 02/2024
Chronic hypoxemia, on 4L
Severe pulm hypertension, PA pressure 70-likely due to chronic hypercapnic respiratory failure/advanced COPD
Poor compliant with oxygen.
RV dysfunction/dilation per echo 04/01/23
Suspect RICARDO/OHS, never had sleep study/declined testing
Prostate cancer
Incomplete right bundle branch block
Obesity
Prot mirabilis UTI
Lower extremity cellulitis
Plan:
Respiratory decompensation multifactorial-advanced COPD/volume overload/severe pulm hypertension
Supplemental oxygen as needed-currently up to 8 L-was on 4 L in the outpatient setting-attempt to reduce
DuoNebs continue along with Pulmicort nebulizers
Continue mucolytic's
Steroids initiated with ongoing wheezing despite CHF therapy-methylprednisolone 40 mg IV every 12 hours-begin to reduce in the next 24 hours
Aspiration precautions
BiPAP at night and during the daytime as needed-now willing to use in the outpatient setting
Avoid oversedation
Chest x-ray 08/13/2024-interval improvement in CHF pattern
CT chest 08/15/2024-no evidence for pulm embolism, moderate to advanced emphysematous lung changes and in the posterior right lower lobe bronchial wall thickening suggesting secretions or mucous plugging
Intensify mucus clearing devices
Added vest therapy
He understands high risk of readmission and without noninvasive mechanical ventilation.
Multiple extensive discussion with him in the outpatient setting and during this admission.
Patient has repeatedly stated he has no intention to continue BPAP as outpatient: we have discussed hospice but he does not believe he is ill
He does not feel he has any issue with his lungs, he is in 'perfect health.'
He does not wish to change his code status and does not have family/medical POA designation (he says he has no children or siblings, despite sister is contact). He feels he does not need anyone.
He is not ready for hospice despite his level of noncompliance.
Dr. Alfaro readdressed with nursing-Cyn present on 08/14/2024-explained the need for BiPAP which she is tolerating, he would 'prefer not using it', however, he states that he would use it in the outpatient setting after it was once again over a
lengthy period time explained it would help with CO2 elimination and hopefully prevent repetitive readmissions, etc.-reluctantly he states he would be willing to use BiPAP
Patient has end-stage COPD with multiple emergency room and hospitalizations with chief complaint of shortness of breath and respiratory failure. The patient has a pCO2 of greater than 60 on 2 L oxygen and needs continuous oxygen supplementation.
Patient reports shortness of breath with minimal activity and reports significant reduction in activities of daily living. Due to the patient's COPD and hypoventilation patient is at risk of worsening chronic respiratory failure. I have considered
bilevel, bilevel ST and bilevel VAPS therapy and they have been ruled out due to the patient's worsening condition. The patient now requires a unique mode of ventilation not offered by less costly options. The patient requires a device that will
not fail in the event of power failure and also portable for mobility within the home when needed. Due to the patient's worsening condition I am prescribing noninvasive ventilation therapy to decrease the chance of continued unplanned expensive
medical encounters including physician office visits, emergency/urgent care treatments and hospital readmissions.
Continue diuresis will continues as tolerated
Monitor renal function, electrolytes, intake/output, lower extremity edema and weight
Replace electrolytes as needed
Cardiology following-correspondence reviewed
Follow cultures
Sputum culture if able
Brief course of antibiotics for bronchitis completed
DVT prophylaxis: Lovenox
Nutrition
Early mobilization/physical therapy
Suspect that patient has obesity hypoventilation syndrome/RICARDO combined with severe obstructive lung disease based on outpatient records
He has refused therapy in the past including oxygen, treatment for sleep apnea, inhaler therapy-now potentially willing
Prior conversations:
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
Noted full code status
Will benefit from [facility] discussion with family, given his multiple comorbidities and persistent medical noncompliance. He may be at increased risk for prolonged mechanical ventilation and associated complications. In my humble opinion he should be
DNR/DNI.
This was discussed with him and care team on prior visits
Tried to discuss all above with Mr Styles again today, unfortunately he has very poor insight
Not much else to offer.
Follow up with Dr. Marte after discharge known to have poor compliance with therapy, unable to afford medications, poor compliant with oxygen, refusing BiPAP, last time seen in June 2024 with ASHWINI.
Diagnostic Data
CXR 08/08/24- Cardiomegaly. Radiographic findings felt to most likely represent pulmonary edema.
CXR 03-31-23 (portable) c/w 01-16-22 (PA/lat): Old films with no infiltrates. Current film slightly lordotic/rotated. R basilar linear atelectasis, mild pulm vasc congestion
PET CT 01-17-23 IMPRESSION: [Marked uptake of activity in the prostate gland suspicious for malignancy.] Extension of malignancy to involve the seminal vesicles cannot be excluded on the basis of this study. Coronary artery calcifications and
sigmoid diverticulosis. Please note, evaluation may be limited with possible false negative results in light of the large volume of activity seen in the prostate gland.
R leg doppler 03-31-23: negative
TTE 04-01-23 CONCLUSIONS: Normal left ventricular chamber size. Normal left ventricular systolic function. Left ventricular ejection fraction is 55% by visual estimate. Normal regional wall motion. Mild concentric left ventricular hypertrophy. Stage
II diastolic dysfunction suggestive of abnormal relaxation and increased filling pressures. Moderately dilated right ventricle with moderately reduced systolic function. Dilated right atrium. Mild to moderate tricuspid regurgitation. Estimated
pulmonary artery pressure of 70 mmHg assuming a right atrial pressure of 15 mmHg. Compared to prior study dated 01/18/22 which was directly reviewed, LV function was previously hyperdynamic, otherwise no significant change.
.
Subjective Data
-
Date of Service:
Date of Service: August 16, 2024
Chief Complaint: Pulmonary Follow Up and Dyspnea Follow Up
Subjective:
States that he feels great, denies any shortness of breath, chest congestion, chest pain or abdominal pain
Review of Systems
General: Other (Per HPI)
Objective Data
Data Reviewed
Vital Signs / I&O:
Vital Signs
Temp Pulse Resp BP Pulse Ox
98.1 F 62 22 113/42 91
08/16/24 07:39 08/16/24 08:00 08/16/24 08:00 08/16/24 08:00 08/16/24 08:00
Intake and Output
08/15/24 08/16/24 08/17/24
06:59 06:59 06:59
Intake Total 180 / 180 1440 / 1440
Output Total 100 / 100
Balance 80 / 80 1440 / 1440
SaO2: 91
Nasal Cannula flow liters per minute: 10
Physical Exam
General: Respiratory Distress (n), Comfortable (at rest) and Other (NAD)
HEENT: Normocephalic, Anicteric and Moist Mucous Membranes
Cardiovascular: Regular Rhythm
Respiratory: Clear ( diminished breath sounds and prolonged expiratory time), Wheeze (n), Crackles (Few basilar), Rhonchi and Non-Labored Respirations
GI: Soft, Non Distended and Non Tender
Neurology: Awake, Alert and No Motor Deficits
Skin: Warm, Dry, Good Color, Cyanosis (n) and Jaundice (n)
Labs/Micro/Reports
Lab Data
08/15/24 08:48
08/15/24 05:28
Microbiology
08/08/24 12:08 Blood/Venous Blood Culture - Final
No Growth - Final Report
08/08/24 12:08 Blood/Venous Blood Culture - Final
No Growth - Final Report
--- NOTE | 2024-08-16 14:16 | W.PN.HOSP.TC ---
Today's Communication/Plan
-
Start cefepime
Wean oxygen as tolerated to baseline 3 to 4 L slowly as possible
Continue steroids now
Assessment / Plan
Assessment / Plan
73-year-old male with cough and shortness of breath. Patient is from [facility] he was hypoxic and placed on BiPAP in the ER
CVS: S1-S2 normal
Chest: CTA B/L, decreased BS
Abdomen: Soft, NT , Bowel sounds present
Extremities: No edema
CT chest PE study-moderate to advanced emphysematous lung changes. Posterior right lower lobe peribronchial thickening noted with intraluminal opacities suggesting secretions and/or mucous plugging. Within the posterior right base mild parenchymal
opacity atelectasis versus pneumonia.
# Acute on chronic hypoxic/acute on chronic hypercapnic respiratory failure patient was obtunded in the ER
On 3-4 L of oxygen as outpatient, on 10 L-down to 8 L now
Suspected heart failure related. Normalized pH improved hypercapnia. Now wearing and tolerating HS BiPAP.
Improved weight since admission. Continue diuretics per cardiology
# COPD with acute flare
CXR without focal pneumonia.
Suspect recent bronchitis -pt with post infectious cough which seems to be productive. Completed 7 days of doxycycline..
Procalcitonin not elevated
COVID and influenza screen negative
Continue with the nebulizers.
IV steroids started because of no progress despite adequate diuresis.
Start cefepime for the pneumonia on the CT
# Acute on chronic HFpEF
Echo 08/09/2024-EF 55%, mild LVH,Dilated right ventricle with low normal RV systolic function Estimated pulmonary artery pressure of 65-70 mmHg assuming a right atrial pressure of 3 mmHg.
Continue metoprolol
Improving wt since diuresis
Lasix changed to p.o.
Not on KINDRA/ARB/ARNI
# Hypokalemia -Repleted
# Elevated troponin-likely nonischemic myocardial injury secondary to above
# Coronary disease with history of [place] and drug-eluting stents to LAD. Residual RCA lesion by cath 2021
# Hypertension-continue Amlodipine, Metoprolol
# Hyperlipidemia/atherosclerosis-Continue statin
# Anxiety/Bipolar disorder-Continue sertraline
# Obesity
# Suspected Sleep Apnea-Patient is now agreeable to wear BiPAP at night. Case management will let rehab know to arrange this. Pulmonary has completed paperwork/documentation for this.
# Pulmonary Hypertension
# History of prostate cancer and h/o hematuria-on bicalutamide. Continue .
# Ex-smoker
# Full code
Discussed with pulmonary
Sister updated on the phone 08/14/2024
Anticipated Discharge: 24 - 48 hours
Subjective/Interval History
-
Date of Service: August 16, 2024
Objective Data
-
Vital Signs:
Vital Signs
Temp Pulse Resp BP Pulse Ox
97.2 F 59 25 99/54 90
08/16/24 11:53 08/16/24 10:05 08/16/24 10:05 08/16/24 10:05 08/16/24 10:33
I&O
08/15/24 08/16/24 08/17/24
06:59 06:59 06:59
Intake Total 180 / 180 1440 / 1440
Output Total 100 / 100
Balance 80 / 80 1440 / 1440
[2024-08-16] MEDS: LOVENOX 40 MG SC (17:08)
--- NOTE | 2024-08-16 18:35 | PTCARENOTE ---
OOB most of the day. Weaned O2 to 6L maintaining [id number]%. Failed 4L at 83% and pt more confused. AAOx3 poor insight, argumentative with health discussions- otherwise pleasant! Grossly incontinent at times- used bsc x1 today.
[2024-08-16] MEDS: LIPITOR 20 MG PO (21:46)
[2024-08-16] MEDS: MUCINEX 1200 MG PO (21:46)
[2024-08-17] VITALS (7 sets, daily range): BP systolic 107–141; BP diastolic 58–69; PULSE 2–56; BMI 29.1
[2024-08-17] MEDS: SOLU-MEDROL PF 40 MG IV (04:34)
[2024-08-17] MEDS: MAXIPIME 1000 MG IV ×2 (04:34→09:24)
[2024-08-17] MEDS: STERILE WATER FOR INJECTION 10 ML IV ×2 (04:34→09:24)
--- NOTE | 2024-08-17 04:51 | PTCARENOTE ---
Patient wore his bipap from about 2300 to now. back on midflow. He is angry, states 'you are annoying me'. Forgetful at times. Swallowed pills w/o issues. NSR/SB w/ PVCs on tele. incont. XL BM in BSC. turns self in bed. call thompson within reach.
[2024-08-17 05:21] LABS: Blood Urea Nitrogen 45 mg/dl (9-20); Calcium 9.1 mg/dl (8.4-10.2); Chloride 88 mmol/L (98-107); Estimated Creatinine Clearance 94 ml/min; Glucose 137 mg/dl (70-99); Potassium 4.1 mmol/L (3.5-5.1); Sodium 137 mmol/L (135-145); eGFR > 60.00
[2024-08-17 05:31] LABS: Carbon Dioxide 39 mmol/L (22-30)
[2024-08-17] MEDS: PULMICORT 0.5 MG INH (07:14)
[2024-08-17] MEDS: DUONEB 3 ML INH ×2 (07:14→11:13)
[2024-08-17] MEDS: MUCINEX 1200 MG PO (09:24)
[2024-08-17] MEDS: LASIX 60 MG PO (09:24)
[2024-08-17] MEDS: KCL 10 MEQ PO (09:25)
[2024-08-17] MEDS: LOW STRENGTH ASPIRIN 81 MG PO (09:25)
[2024-08-17] MEDS: DESENEX/MITRAZOL/ZEASORB 1 APPLIC TOPICAL (09:25)
[2024-08-17] MEDS: CASODEX 50 MG PO (09:25)
[2024-08-17] MEDS: NORVASC 5 MG PO (09:25)
[2024-08-17] MEDS: TOPROL XL 25 MG PO (09:25)
[2024-08-17] MEDS: ZOLOFT 100 MG PO (09:26)
--- NOTE | 2024-08-17 09:52 | W.PN.PUL.V3 ---
Today's Communication / Plan
-
Wean oxygen
Mucus clearing devices including vest therapy while hospitalized
Prednisone 60 mg with fairly rapid taper over 2 weeks
Procalcitonin pending
Cefepime and antibiotics per primary team
Willing to use BiPAP in the outpatient setting
Potential discharge
Assessment
-
Patient is a 73 year old M with previous history of severe COPD/emphysema, chronic hypoxemia, obesity, suspected RICARDO/OHS (refused testing), noncompliance presenting to ER with cough and hypoxemia. Presents from [facility], with hypoxemia,
placed on 8-10L NC with sats in low 90s. He has a history of baseline use of 4L but would intermittently refused to use it. Last seen in our office in February, has history of severe COPD. He does not follow up recommendations for testing/treatment.
Acute on chronic hypoxic and hypercarbic respiratory failure
ABG 7.32, prior 7
Acute HF exacerbation, proBNP 39660
Acute on chronic SOB/cough
Medical noncompliance
Advanced COPD with chronic hypercapnic and hypoxemic respiratory failure
Not compliant with oxygen therapy
Declined noninvasive mechanical ventilator
Obesity hypoventilation syndrome suspected
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
Coronary disease with history of LAD stent and elevated filling pressures per catheterization December 2021
Noncompliance, refusal of treatment
Severe COPD/emphysema, GOLD IV
FEV1 30%
Follows with Dr. Marte in OP last seen 02/2024
Chronic hypoxemia, on 4L
Severe pulm hypertension, PA pressure 70-likely due to chronic hypercapnic respiratory failure/advanced COPD
Poor compliant with oxygen.
RV dysfunction/dilation per echo 04/01/23
Suspect RICARDO/OHS, never had sleep study/declined testing
Prostate cancer
Incomplete right bundle branch block
Obesity
Prot mirabilis UTI
Lower extremity cellulitis
Plan:
Respiratory decompensation multifactorial-advanced COPD/volume overload/severe pulm hypertension
Supplemental oxygen as needed-currently on 5 L-was on 4 L in the outpatient setting-attempt to reduce
DuoNebs continue along with Pulmicort nebulizers
Continue mucolytic's
Steroids initiated with ongoing wheezing despite CHF therapy-methylprednisolone 40 mg IV every 12 hours-begin to reduce in the next 24 hours
Aspiration precautions
BiPAP at night and during the daytime as needed-now willing to use in the outpatient setting
Avoid oversedation
Chest x-ray 08/13/2024-interval improvement in CHF pattern
CT chest 08/15/2024-no evidence for pulm embolism, moderate to advanced emphysematous lung changes and in the posterior right lower lobe bronchial wall thickening suggesting secretions or mucous plugging
Intensify mucus clearing devices
Vest therapy while in the hospital
He understands high risk of readmission and without noninvasive mechanical ventilation.
Multiple extensive discussion with him in the outpatient setting and during this admission.
Patient has repeatedly stated he has no intention to continue BPAP as outpatient: we have discussed hospice but he does not believe he is ill
He does not feel he has any issue with his lungs, he is in 'perfect health.'
He does not wish to change his code status and does not have family/medical POA designation (he says he has no children or siblings, despite sister is contact). He feels he does not need anyone.
He is not ready for hospice despite his level of noncompliance.
Dr. Alfaro readdressed with nursing-Cyn present on 08/14/2024-explained the need for BiPAP which she is tolerating, he would 'prefer not using it', however, he states that he would use it in the outpatient setting after it was once again over a
lengthy period time explained it would help with CO2 elimination and hopefully prevent repetitive readmissions, etc.-reluctantly he states he would be willing to use BiPAP
Patient has end-stage COPD with multiple emergency room and hospitalizations with chief complaint of shortness of breath and respiratory failure. The patient has a pCO2 of greater than 60 on 2 L oxygen and needs continuous oxygen supplementation.
Patient reports shortness of breath with minimal activity and reports significant reduction in activities of daily living. Due to the patient's COPD and hypoventilation patient is at risk of worsening chronic respiratory failure. I have considered
bilevel, bilevel ST and bilevel VAPS therapy and they have been ruled out due to the patient's worsening condition. The patient now requires a unique mode of ventilation not offered by less costly options. The patient requires a device that will
not fail in the event of power failure and also portable for mobility within the home when needed. Due to the patient's worsening condition I am prescribing noninvasive ventilation therapy to decrease the chance of continued unplanned expensive
medical encounters including physician office visits, emergency/urgent care treatments and hospital readmissions.
Continue diuresis will continues as tolerated
Monitor renal function, electrolytes, intake/output, lower extremity edema and weight
Replace electrolytes as needed
Cardiology following-correspondence reviewed
Follow cultures
Sputum culture if able
Brief course of antibiotics for bronchitis completed
Cefepime initiated for potential infection noted on CT
Check procalcitonin-if negative discontinue antibiotics
DVT prophylaxis: Lovenox
Nutrition
Early mobilization/physical therapy
Suspect that patient has obesity hypoventilation syndrome/RICARDO combined with severe obstructive lung disease based on outpatient records
He has refused therapy in the past including oxygen, treatment for sleep apnea, inhaler therapy-now potentially willing
Patient has been weaned to 5 L-close to his baseline-stable for proposed discharge from a pulmonary perspective-continue BiPAP if willing and steroid taper-prednisone 60 mg with fairly rapid taper off over 2 weeks
Prior conversations:
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
Noted full code status
Will benefit from [facility] discussion with family, given his multiple comorbidities and persistent medical noncompliance. He may be at increased risk for prolonged mechanical ventilation and associated complications. In my humble opinion he should be
DNR/DNI.
This was discussed with him and care team on prior visits
Tried to discuss all above with Mr Styles again today, unfortunately he has very poor insight
Not much else to offer.
Follow up with Dr. Marte after discharge known to have poor compliance with therapy, unable to afford medications, poor compliant with oxygen, refusing BiPAP, last time seen in June 2024 with SHOTWELD OPERATOR.
Diagnostic Data
CXR 08/08/24- Cardiomegaly. Radiographic findings felt to most likely represent pulmonary edema.
CXR 03-31-23 (portable) c/w 01-16-22 (PA/lat): Old films with no infiltrates. Current film slightly lordotic/rotated. R basilar linear atelectasis, mild pulm vasc congestion
PET CT 01-17-23 IMPRESSION: [Marked uptake of activity in the prostate gland suspicious for malignancy.] Extension of malignancy to involve the seminal vesicles cannot be excluded on the basis of this study. Coronary artery calcifications and
sigmoid diverticulosis. Please note, evaluation may be limited with possible false negative results in light of the large volume of activity seen in the prostate gland.
R leg doppler 03-31-23: negative
TTE 04-01-23 CONCLUSIONS: Normal left ventricular chamber size. Normal left ventricular systolic function. Left ventricular ejection fraction is 55% by visual estimate. Normal regional wall motion. Mild concentric left ventricular hypertrophy. Stage
II diastolic dysfunction suggestive of abnormal relaxation and increased filling pressures. Moderately dilated right ventricle with moderately reduced systolic function. Dilated right atrium. Mild to moderate tricuspid regurgitation. Estimated
pulmonary artery pressure of 70 mmHg assuming a right atrial pressure of 15 mmHg. Compared to prior study dated 01/18/22 which was directly reviewed, LV function was previously hyperdynamic, otherwise no significant change.
.
Subjective Data
-
Date of Service:
Date of Service: August 17, 2024
Chief Complaint: Pulmonary Follow Up and Dyspnea Follow Up
Subjective:
FiO2 weaned to 5 L, no complaints of worsening shortness of breath, chest congestion, productive cough, abdominal pain
Review of Systems
General: Other (Per HPI)
Objective Data
Data Reviewed
Vital Signs / I&O:
Vital Signs
Temp Pulse Resp BP Pulse Ox
97.7 F 58 18 111/69 98
08/17/24 05:31 12/20/24 08:00 08/17/24 08:00 08/17/24 08:00 08/17/24 09:34
Intake and Output
08/16/24 08/17/24 08/18/24
06:59 06:59 06:59
Intake Total 1440 / 1440 1630 / 1630
Output Total 150 / 150
Balance 1440 / 1440 1480 / 1480
SaO2: 98
Nasal Cannula flow liters per minute: 6
Physical Exam
General: Respiratory Distress (n), Comfortable (at rest) and Other (NAD)
HEENT: Normocephalic, Anicteric and Moist Mucous Membranes
Cardiovascular: Regular Rhythm
Respiratory: Clear ( diminished breath sounds and prolonged expiratory time), Wheeze (n), Crackles (Few basilar), Rhonchi and Non-Labored Respirations
GI: Soft, Non Distended and Non Tender
Neurology: Awake, Alert and No Motor Deficits
Skin: Warm, Dry, Good Color, Cyanosis (n) and Jaundice (n)
Labs/Micro/Reports
Lab Data
08/15/24 08:48
08/17/24 04:32
--- NOTE | 2024-08-17 10:02 | W.PN.HOSP.TC ---
Today's Communication/Plan
-
already on 4L O2 - tolerating fine as per RN
CM for BiPAP
check procal, if low/normal - stop Abx
Assessment / Plan
Assessment / Plan
73yo M with PMHX of HTN, HLD, CAD s/p PCI, HFpEF, RICARDO, prostate CA, COPD with chronic hypoxic respiratory failure on 4-5L home O2 admitted with worsening dyspnea, managed for CHF exacerbation, pneumonia and COPD exacerbation. Completed IV diuretics
and cardiology recommended outpatient ischemic workup. CT chest showed mucus plugging, no pulmonary embolism and severer emphysema. COmbination of these factors and poor mucus clearing caused worsneing of the hypoxia and subsequent slow recovery to
the baseline. 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
A/P:
#Acute on chronic hypoxic and hypercapnic respiratory failure
#COPD exacerbation
#Bronchitis suspiscion for RLL pneumonia with unspecified organism vs atelectasis
#RICARDO
COmpleted Doxy
TAper steroids
cont nebulizers, wean off O2
CM for home BiPAP
CT on 08/15/24 with RLL consolidation, will recheck procalcitonin, if normal and since no fevers - will favor atelectasis, rather then penumonia, meanwhile cont Cefepime
#Acute on chronic HFpEF
#Pulmonary HTN
#CAD, stable
#Non-ischemic myocardial injury
Cardiology: outpatient follow up for ischemia
Completed IV diuresis
#DISH
tylenol
PT/OT
#HLD
#Essential HTN
#Anxiety d/o
#Bipolar D/O
#Hx of prostate CA
cont home meds
DVT ppx lovenox
Full code
I have spent at least 53min reviewing chart, test resuklts, communication with consultants and direct patient care
Anticipated Discharge: Within 24 hours
Subjective/Interval History
-
Date of Service: August 17, 2024
Objective Data
-
Labs:
Laboratory Results
08/17/24
04:32
Sodium 137
Potassium 4.1
Chloride 88 L
Carbon Dioxide 39 H
BUN 45 H
Creatinine 0.8
Glucose 137 H
Calcium 9.1
Vital Signs:
Vital Signs
Temp Pulse Resp BP Pulse Ox
97.7 F 58 18 111/69 98
08/17/24 05:31 08/17/24 08:00 08/17/24 08:00 08/17/24 08:00 08/17/24 09:52
I&O
08/16/24 08/17/24 08/18/24
06:59 06:59 06:59
Intake Total 1440 / 1440 1630 / 1630
Output Total 150 / 150
Balance 1440 / 1440 1480 / 1480
Review of Systems
-
History Source: Patient
All other systems: Reviewed and negative
Physical Exam
-
General: No Apparent Distress
HEENT: Normocephalic, Atraumatic and Moist Mucous Membranes
Respiratory: Clear to Auscultation; Negative Wheezes or Crackles
Cardiac: Regular Rhythm
GI: Soft, Nontender and Nondistended
Musculoskeletal: No Clubbing, No Cyanosis and No Edema
Neuro: Awake, Alert, Oriented and AO x 3
Psych: Calm
[2024-08-17 10:42] LABS: Procalcitonin < 0.05 ng/ml (0.0-0.25)
[2024-08-17] MEDS: DELTASONE 60 MG PO (11:10)
--- NOTE | 2024-08-17 11:33 | W.DCSUMMARY ---
Discharge Summary
Discharge Data
Date of Admission: 08/08/24
Date of Discharge: 08/17/24
-
Pending Results: No
Hospital Course
73yo M with PMHX of HTN, HLD, CAD s/p PCI, HFpEF, RICARDO, prostate CA, COPD with chronic hypoxic respiratory failure on 4-5L home O2 admitted with worsening dyspnea, managed for CHF exacerbation, pneumonia and COPD exacerbation. Completed IV diuretics
and cardiology recommended outpatient ischemic workup. CT chest showed mucus plugging, no pulmonary embolism and severer emphysema. COmbination of these factors and poor mucus clearing caused worsneing of the hypoxia and subsequent slow recovery to
the baseline. Bioinformaticist advised BiPAP on discharge SNF will provide. Medically stable for d/c. No need for Abx while afebrile, undetectable procal and no leukkocytosis (however with steroids, previous minimal leukocytosis cannot justify
pneumonia). No wheezing - reasonable to start oral prednisone taper
Patient previously with poor compliance with pulmonary follow ups and reccomendations.
On the day of D/C remained on 4L NC as per bedside RN
I have spent at least 38min reviewing chart, test resuklts, communication with consultants and direct patient care
Patient was managed for:
#Acute on chronic hypoxic and hypercapnic respiratory failure
#COPD exacerbation
#Bronchitis suspiscion for RLL pneumonia with unspecified organism vs atelectasis
#RICARDO
#Acute on chronic HFpEF
#Pulmonary HTN
#CAD, stable
#Non-ischemic myocardial injury
#DISH
#HLD
#Essential HTN
#Anxiety d/o
#Bipolar D/O
#Hx of prostate CA
Discharge Plan
-
Patient Disposition: Jail/SNF
Discharge Diagnosis/Procedures: CHF, COPD
Diet: Low Sodium
Activity: As tolerated
Driving Restrictions: As prior to admission
Referrals:
Adam Leiva I., DO [Family Provider] -
Milton Warren MD [Active] - in two to four weeks (for ischemic workup)
Shashank Gillette MD [Active] - in one to two weeks
Prescriptions:
New
prednisone 10 mg Tablet
See Rx Instructions .ROUTE .COMPLEX Qty: 45 0RF
Rx Instructions:
Take By Mouth:
50 mg daily x3 days, 40 mg daily x3 days,
30 mg daily x3 days, 20 mg daily x3 days,
10 mg daily x3 days
furosemide 20 mg Tablet
60 mg PO BID AT 0800,1600 Qty: 60 0RF
Continued
amlodipine 5 MG tablet
5 mg PO DAILY 30 Days Qty: 30 0RF
aspirin 81 MG tablet,chewable
81 mg PO DAILY 30 Days Qty: 30 0RF
metoprolol tartrate 25 MG tablet
25 mg PO BID 30 Days Qty: 60 11RF
bicalutamide 50 mg tablet
50 mg PO DAILY
potassium chloride 10 mEq Tablet,Er Particles/Crystals
10 meq PO DAILY Qty: 30 0RF
Rx Instructions:
take with lasix
budesonide 0.5 mg/2 mL Suspension For Nebulization
0.5 mg inhalation R BID Qty: 60 0RF
acetaminophen 325 mg Tablet
650 mg PO Q4HPRN PRN (Reason: mild pain/fever)
sertraline 50 mg Tablet
100 mg PO DAILY
tiotropium bromide 2.5 mcg/actuation Mist
2 puff INHALATION R DAILY
magnesium hydroxide [Milk of Magnesia] 400 mg/5 mL suspension
30 ml PO DAILYPRN PRN (Reason: constipation)
bisacodyl 10 mg suppository
10 mg [place] DAILYPRN PRN (Reason: if mom is ineffective after 24h)
Enema 19-7 gram/118 mL enema
118 ml MD DAILYPRN PRN (Reason: constipation if dulcolax ineff)
atorvastatin 20 mg Tablet
20 mg PO HS
ipratropium-albuterol 0.5 mg-3 mg(2.5 mg base)/3 mL solution for nebulization
3 ml inhalation R BID
Discontinued
furosemide 40 mg tablet
40 mg PO BID
Discharge Orders:
Discharge Patient (As Directed); Ordered 08/17/24
Ordered By: Addy Teague
Discharge Date and Time
Print Language: SLOVENIAN
--- NOTE | 2024-08-17 12:23 | CM ---
Addendum entered by Janina Garza RN 08/17/24 12:33:
[facility]: The ph for report [phone], fax [phone].
Original Note:
Patient from [facility]. O2 4L. BiPAP HS. PT/OT recommend skilled rehab.
Spoke with Juanita, [facility]; they have the O2 and BiPAP ready for this patient, and are able to accept him back today. Juanita is aware that the insurance auth will today and they will obtain updated auth once the patient returns
there today. The ph for report [phone], fax [phone].
Met with patient and spoke with his sister Camila by phone; both agree to d/c today back to [facility] by ambulance. IMM completed. Patient aware that BiPAP has been setup at the SNF.
Plan return to [facility] today by ambulance, with BiPAP setup at SNF.
== END 2024-08-17 14:00 | DRG 193 ==
LOC: IMU 14:46
PROVIDERS: Hospitalist; Internal Medicine; Nurse Practitioner Family; ADMITTING PHYSICIAN Student in an Organized Health Care Education/Training Program; ATTENDING PHYSICIAN Internal Medicine; CONSULT PHYSICIAN Internal Medicine; CONSULT PHYSICIAN Internal Medicine Cardiovascular Disease; EMERGENCY PHYSICIAN Student in an Organized Health Care Education/Training Program; FAMILY PHYSICIAN Internal Medicine
PROC: 5A09357 Assistance with Respiratory Ventilation, Less than 24 Consecutive Hours, Continuous Positive Airway Pressure (ICD-10-PCS; 2024-08-08)
DX: J18.9 Pneumonia, unspecified organism (principal); I50.33 Acute on chronic diastolic (congestive) heart failure; J96.21 Acute and chronic respiratory failure with hypoxia; J96.22 Acute and chronic respiratory failure with hypercapnia; J44.1 Chronic obstructive pulmonary disease with (acute) exacerbation; J44.0 Chronic obstructive pulmonary disease with (acute) lower respiratory infection; E87.29 Other acidosis; I5A Non-ischemic myocardial injury (non-traumatic); I11.0 Hypertensive heart disease with heart failure; I25.10 Atherosclerotic heart disease of native coronary artery without angina pectoris; F31.9 Bipolar disorder, unspecified; G47.33 Obstructive sleep apnea (adult) (pediatric); E78.5 Hyperlipidemia, unspecified; I27.20 Pulmonary hypertension, unspecified; J43.9 Emphysema, unspecified; I45.10 Unspecified right bundle-branch block; L89.152 Pressure ulcer of sacral region, stage 2; F17.200 Nicotine dependence, unspecified, uncomplicated; E66.9 Obesity, unspecified; Z68.33 Body mass index [BMI] 33.0-33.9, adult; I25.2 Old myocardial infarction; Z79.82 Long term (current) use of aspirin; Z79.899 Other long term (current) drug therapy; Z79.51 Long term (current) use of inhaled steroids; Z85.46 Personal history of malignant neoplasm of prostate; Z99.81 Dependence on supplemental oxygen; Z95.5 Presence of coronary angioplasty implant and graft; Z91.199 Patient's noncompliance with other medical treatment and regimen due to unspecified reason; Z11.52 Encounter for screening for COVID-19
CPT/HCPCS: 36600; 71045; 71275; 80048; 80053; 80061; 82805; 83605; 83735; 83880; 84145; 84443; 84484; 85025; 85027; 87040; 87070; 87502; 87811; 90662; 90677; 92610; 93005; 93306; 94640; 94660; 94669; 96361; 96365; 96366; 96367; 96375; 97116; 97163; 97167; 97530; 97535; 99291; G0008; G0009; Q9967

== ENCOUNTER 2024-11-15 19:51 | Emergency (ER) | payer OTHER, SELFPAY ==
[2024-11-15] VITALS (7 sets, daily range): BP systolic 90–121; BP diastolic 44–69; BMI 32.2
--- NOTE | 2024-11-15 20:16 | ED.GENMED ---
History of Present Illness
General
Chief Complaint: Abnormal Lab Value
Source: patient
Exam Limitations: none
Time Seen by Provider: 11/15/24 19:59
Nursing documentation reviewed up to this point in time: agreed with
History of Present Illness
History of Present Illness:
Patient with history of COPD on oxygen (4 L via nasal cannula), presents to ED from longterm after routine outpatient blood work revealed elevated WBC and bicarb. Patient states that he has been coughing more than usual but denies chest pain or
shortness of breath. He denies nausea, vomiting, or diarrhea. Denies increased leg swelling. Denies back pain. Denies fever. Denies loss of appetite. Denies dizziness. Denies rash. Denies headache.
Past History
Past History
ED Past Medical History: COPD and Other ( Adenocarcinoma of prostate, Muscle wasting and atrophy, Hypertension, Anxiety, NSTEMI (non-ST elevated myocardial infarction), Nocturia, Heart failure with preserved ejection fraction, VT (ventricular
tachycardia), Cellulitis, Metabolic encephalopathy, Acute respiratory failure with hyp)
Social History
Tobacco: Smoker
Alcohol: None
Drug: None
Living: longterm
Employment: Not employed
Family History
Family History: Unable to obtain (Patient obtunded)
Review of Systems
Review of Systems
Allergies reviewed?: Yes
All Other Systems: ROS reviewed and negative except as documented in HPI and ROS
Constitutional: Reports no symptoms; Denies fever or chills
Respiratory: Reports cough; Denies trouble breathing
Cardiac: Reports no symptoms; Denies chest pain
ABD/GI: Reports no symptoms; Denies abdominal pain, vomiting or diarrhea
Musculoskeletal: Reports no symptoms; Denies edema
Skin: Reports no symptoms
Neurological: Reports no symptoms
Phy Exam
Physical Exam
Physical Exam:
Physical Exam
General: mild distress, not acutely ill. afebrile. overweight.
Head: nc/at. eomi
Neck: supple. normal range of motion. no jvd
Heart: s1/s2 regular rate and rhythm
Lungs: mild respiratory distress. rhonchi bilaterally
Abdomen: normal bowel sounds. not tender.
Neuro: alert and oriented x 3. no focal neurological deficits
Skin: no rash
Psychiatric: well kept. interactive and cooperative
Extremities: LE b/l, non-pitting edema. no calf tenderness.
Course
Orders/Labs/Results
Orders:
Orders
11/15/24 20:13
Ipratropium/Albuterol Sulfate [Duoneb] 3 ml INH R NOW STA
CR Chest - 2 Views Urgent
Comment:
Reason For Exam: cough/sob
11/15/24 20:19
Electrocardiogram (*1) Urgent
Reason for Study: Shortness of Breath
EKG- Treatment ONCE
11/15/24 20:22
COVID-19 Antigen Urgent
Source: Nasal Swab
Complete Blood Count/With Diff Urgent
Comprehensive Metabolic Panel Urgent
Magnesium Urgent
NT-proBNP Urgent
11/15/24 20:36
Arterial Blood Gas Urgent
%Oxygen/Room Air: 90
11/15/24 23:34
Azithromycin [Zithromax] 500 mg PO NOW STA
Dexamethasone Sod Phosphate [Decadron] 10 mg IV NOW STA
11/16/24
Electrocardiogram (*1) Stat
Reason for Study: Chest Pain
Abnormal Lab Results
11/15/24 11/15/24
20:22 20:36
WBC 10.9 H 10^3/uL
(4.8-10.8)
RBC 4.36 L 10^6/uL
(4.70-6.10)
Hgb 12.4 L g/dL
(13.0-18.0)
Hct 38.4 L %
(39.0-52.0)
MCHC 32.3 L g/dL
(33.0-37.0)
RDW 17.0 H %
(11.5-14.5)
Abs Immat Gran (auto) 0.1 H 10^3/uL
(0-0.05)
Absolute Neuts (auto) 10.3 H 10^3/uL
(1.4-6.5)
Absolute Lymphs (auto) 0.2 L 10^3/uL
(1.2-3.4)
Immature Gran % 1.1 H %
(0-0.5)
Neutrophils % 94.1 H %
(42.2-75.2)
Lymphocytes % 1.9 L %
(20.5-51.1)
pCO2 71 H* mmHg
(35-48)
HCO3 49.3 H* mmol/L
(21-28)
ABG O2 Sat (Measured) 98.9 H %
(94-98)
Potassium 3.4 L mmol/L
(3.5-5.1)
Chloride 92 L mmol/L
(98-107)
Carbon Dioxide 39 H mmol/L
(22-30)
BUN 40 H mg/dl
(9-20)
Glucose 274 H mg/dl
(70-99)
Calcium 8.3 L mg/dl
(8.4-10.2)
Total Protein 5.9 L g/dl
(6.3-8.2)
Albumin 3.4 L g/dl
(3.5-5.0)
11/15/24 20:22
11/15/24 20:22
Vital Signs
Initial and Last Documented VS:
Initial Vital Signs
Temp Pulse Resp BP Pulse Ox
98.6 F 82 20 121/69 93
11/15/24 19:53 11/15/24 19:53 11/15/24 19:53 11/15/24 19:53 11/15/24 19:53
Last Documented Vital Signs
Temp Pulse Resp BP Pulse Ox
98.6 F 60 18 110/67 95
11/15/24 19:53 11/15/24 23:45 11/16/24 00:15 11/16/24 01:54 11/16/24 00:27
MDM/Problems Addressed
MDM/Problems Addressed:
Patient with an unremarkable workup in ED, including blood work and chest x-ray. Elevated bicarbonate level, likely chronic, as patient is a chronic retainer. pH within normal limits, as patient appears to be compensating appropriately. Patient
also remains asymptomatic with stable vital signs, on his typical oxygen requirement. As such, decision made to discharge patient back to longterm, with empiric Zithromax treatment, with likelihood that he may be experiencing upper respiratory
infection versus bronchitis, as patient states that there are number of residents at facility currently coughing.
*EKG
Interpreted by ED Provider?: Yes
EKG Intrepretation Date: 11/16/24
Heart Rate: 59
Rate: bradycardiac
Rhythm: sinus
[place]: left axis deviation
Interval: normal interval
*Critical Care Note
Total Time (30-74mins, 75-104mins- exclusive of procedures): Not Applicable
ED Attending Note
-
Portions of this chart may have been created with voice recognition software.� Occasional wrong word or��sound alike� substitutions may have occurred due to the inherent limitations of voice recognition software.
Discharge Plan
Departure
Patient Disposition: Jail/SNF
Date of Disposition: 11/15/24
Time of Disposition: 23:42
Patient with high blood pressure during this ER visit?: Yes
Discharge Problem:
Acute bronchitis
Instructions: Acute bronchitis in adults
Prescriptions:
New
azithromycin [Zithromax] 250 mg tablet
250 mg PO DAILY 4 Days Qty: 4 0RF
No Action
amlodipine 5 MG tablet
5 mg PO DAILY 30 Days Qty: 30 0RF
aspirin 81 MG tablet,chewable
81 mg PO DAILY 30 Days Qty: 30 0RF
metoprolol tartrate 25 MG tablet
25 mg PO BID 30 Days Qty: 60 11RF
bicalutamide 50 mg tablet
50 mg PO DAILY
budesonide 0.5 mg/2 mL Suspension For Nebulization
0.5 mg inhalation R BID Qty: 60 0RF
acetaminophen 325 mg Tablet
650 mg PO Q4HPRN PRN (Reason: mild pain/fever)
sertraline 50 mg Tablet
100 mg PO DAILY
magnesium hydroxide [Milk of Magnesia] 400 mg/5 mL suspension
30 ml PO DAILYPRN PRN (Reason: constipation)
bisacodyl 10 mg suppository
10 mg [place] DAILYPRN PRN (Reason: if MOM is ineffective after 24 hrs)
atorvastatin 20 mg Tablet
20 mg PO HS
ipratropium-albuterol 0.5 mg-3 mg(2.5 mg base)/3 mL solution for nebulization
3 ml inhalation R BID
prednisone 20 mg Tablet
60 mg PO DAILY
potassium chloride 10 mEq Tablet Extended Release
20 meq PO DAILY
Fleet Enema 19-7 gram/118 mL Enema
118 ml [place] DAILYPRN PRN (Reason: if dulcolax is ineffective after 24 hrs)
guaifenesin [Mucinex] 1,200 mg Tablet Extended Release 12hr
1,200 mg PO BID
furosemide 20 mg tablet
60 mg PO BID
Referrals:
Adam Leiva I., DO [Family Provider] -
Activity Restrictions/Additional Instructions:
As discussed, you are being discharged back to longterm for continual care.
Interventions
Interventions:
*Risk Screen - Suicide Last Done: 11/15/24 19:59
*General Assessment Last Done: 11/15/24 19:59
*Neglect/Abuse Screening Last Done: 11/15/24 19:59
*ED- Fall Risk Assessment Last Done: 11/15/24 19:59
*ED COVID-19 Vaccine History Last Done: 11/15/24 19:59
*Nursing Disposition Last Done: 11/16/24 02:35
Discharge Date and Time
Discharge Date/Time: 11/16/24 02:36
Print Language: CROATIAN
[2024-11-15] MEDS: DUONEB 3 ML INH (20:27)
[2024-11-15 20:30] LABS: % Basophils 0.2 % (0-2); % Immature Granulocytes 1.1 % (0-0.5); % Lymphocytes 1.9 % (20.5-51.1); % Monocytes 2.7 % (1.7-9.3); % Neutrophils 94.1 % (42.2-75.2); Absolute Immature Granulocytes 0.1 10^3/uL (0-0.05); Absolute Lymphocytes 0.2 10^3/uL (1.2-3.4); Absolute Monocytes 0.3 10^3/uL (0.1-0.6); Absolute Neutrophils 10.3 10^3/uL (1.4-6.5); Hematocrit 38.4 % (39.0-52.0); Hemoglobin 12.4 g/dL (13.0-18.0); Mean Corp Hgb Conc. 32.3 g/dL (33.0-37.0); Mean Corpuscular Hgb 28.4 pg (27.0-31.0); Mean Corpuscular Volume 88.1 fL (80.0-94.0); Mean Platelet Volume 9.9 fL (7.4-10.4); Nucleated Red Blood Cells % 0.3 % (-); Platelet Count 217 10^3/uL (130-400); Red Blood Cell Count 4.36 10^6/uL (4.70-6.10); White Blood Cell Count 10.9 10^3/uL (4.8-10.8)
[2024-11-15 20:44] LABS: B.E. 21.3 mmol/L; O2 Saturation % 98.9 % (94-98); PO2 97 mmHg (83-108); pH 7.45 (7.35-7.45)
[2024-11-15 20:46] LABS: HCO3 49.3 mmol/L (21-28); PCO2 71 mmHg (35-48)
[2024-11-15 20:51] LABS: NT-proBNP 2090 pg/ml
[2024-11-15 20:54] LABS: COVID-19 Antigen Negative (Negative)
[2024-11-15 20:56] LABS: ALT (SGPT) 29 U/L (0-50); AST (SGOT) 23 U/L (17-59); Albumin 3.4 g/dl (3.5-5.0); Alkaline Phosphatase 119 U/L (38-126); Blood Urea Nitrogen 40 mg/dl (9-20); Calcium 8.3 mg/dl (8.4-10.2); Chloride 92 mmol/L (98-107); Estimated Creatinine Clearance 101 ml/min; Glucose 274 mg/dl (70-99); Potassium 3.4 mmol/L (3.5-5.1); Sodium 140 mmol/L (135-145); Total Bilirubin 0.8 mg/dl (0.2-1.3); Total Protein 5.9 g/dl (6.3-8.2); eGFR > 60.00
[2024-11-15 21:09] LABS: Carbon Dioxide 39 mmol/L (22-30)
[2024-11-16] VITALS: BP 120/72
[2024-11-16] MEDS: ZITHROMAX 500 MG PO (00:23)
[2024-11-16] MEDS: DECADRON 10 MG IV (00:24)
[2024-11-16 01:54] VITALS: BP 110/67
== END 2024-11-16 02:36 ==
LOC: EMR 19:51
PROVIDERS: EMERGENCY PHYSICIAN Emergency Medicine; FAMILY PHYSICIAN Internal Medicine
DX: J20.9 Acute bronchitis, unspecified (principal); J44.0 Chronic obstructive pulmonary disease with (acute) lower respiratory infection; I11.0 Hypertensive heart disease with heart failure; I50.32 Chronic diastolic (congestive) heart failure; I25.2 Old myocardial infarction; F17.200 Nicotine dependence, unspecified, uncomplicated; Z85.46 Personal history of malignant neoplasm of prostate; Z99.81 Dependence on supplemental oxygen
CPT/HCPCS: 99285; 96374; 94640; 71046; 80053; 82805; 83735; 83880; 85025; 87811; 93005

== ENCOUNTER 2024-11-27 08:51 | Emergency (ER) | payer OTHER, SELFPAY ==
[2024-11-27 08:56] VITALS: BP 118/64; BMI 31.5
[2024-11-27 09:20] VITALS: BP 118/64
--- NOTE | 2024-11-27 09:50 | ED.GENMED ---
History of Present Illness
General
Chief Complaint: Nose Bleed
Source: patient and ambulance crew
Exam Limitations: none
Time Seen by Provider: 11/27/24 08:55
Nursing documentation reviewed up to this point in time: agreed with
History of Present Illness
History of Present Illness:
The patient is 74-year-old man who arrives from [facility] with a nosebleed. Patient is a vague historian. According to paramedics, the nosebleed continued throughout the night. Paramedics report that when they arrived on scene, there was
blood everywhere. Paramedics report that patient was found to be hypoxic, however, he is supposed to be wearing oxygen and does not do so. When they put him on oxygen, he quickly had a pulse ox above 90%. Patient reports that he has a scab in his
left nostril that occasionally opens up and causes bleeding. He reports that he when he got outside in the ambulance, the bleeding improved. Patient arrives with dried blood in his hair, face, hands, on chest and abdomen. He denies any
lightheadedness, dizziness, chest pain and any increased shortness of breath. Patient is coughing but states that this is normal for him and he is breathing at his baseline. Patient is on 81 mg aspirin but there are no other blood thinners seen on
his medication list.
Past History
Past History
ED Past Medical History: CAD, COPD and Other ( Adenocarcinoma of prostate, Muscle wasting and atrophy, Hypertension, Anxiety, NSTEMI (non-ST elevated myocardial infarction), Nocturia, Heart failure with preserved ejection fraction, VT (ventricular
tachycardia), Cellulitis, Metabolic encephalopathy, Acute respiratory failure with hyp)
ED Past Surgical History: Cardiac
Social History
Tobacco: Smoker
Alcohol: None
Drug: None
Personal:
Living: penitentiary
Employment: Not employed
Family History
Family History: Unable to obtain (Patient obtunded)
Review of Systems
Review of Systems
Allergies reviewed?: Yes
All Other Systems: ROS reviewed and negative except as documented in HPI and ROS
Constitutional: Reports no symptoms
EENT: Reports other
Respiratory: Reports cough (Patient reports baseline chronic cough) and trouble breathing (Patient reports that he is always slightly short of breath and no worse than usual. He feels he is at his baseline)
Cardiac: Reports no symptoms
ABD/GI: Reports no symptoms
: Reports no symptoms
Musculoskeletal: Reports no symptoms
Skin: Reports no symptoms
Neurological: Reports no symptoms
Endocrine: Reports no symptoms
Hematologic/Lymphatic: Reports no symptoms
Psychiatric: Reports no symptoms
Phy Exam
Physical Exam
Physical Exam:
Physical Exam
General: Patient appears disheveled. Matted hair with dried blood. Dried blood on face, dried blood on chest, abdomen, and hands. Patient is mildly tachypneic with speaking but states this is not how he or wheezes.
Neck: supple. Active bleeding from left nare. Appears to come from anterior left nasal septum with there is an area of ulceration
Heart: s1/s2 regular rate and rhythm,
Lungs: Mild tachypnea, coughing, rhonchi
Abdomen: normal bowel sounds. not tender. no CVAT
Neuro: alert and orientedx3. no focal neurological deficits
Skin: no rash
Psychiatric: well kept. interactive and cooperative
Extremities: Trace edema bilateral lower extremities. Nontender calves. Negative Homans' sign
Course
Orders/Labs/Results
Orders:
Orders
11/27/24 09:23
CR Chest - 2 Views Urgent
Comment:
Reason For Exam: SOB
11/27/24 09:55
Complete Blood Count/With Diff Urgent
Comprehensive Metabolic Panel Urgent
Abnormal Lab Results
11/27/24
09:55
WBC 13.0 H 10^3/uL
(4.8-10.8)
RBC 4.09 L 10^6/uL
(4.70-6.10)
Hgb 12.2 L g/dL
(13.0-18.0)
Hct 36.1 L %
(39.0-52.0)
RDW 16.0 H %
(11.5-14.5)
Abs Immat Gran (auto) 0.1 H 10^3/uL
(0-0.05)
Absolute Neuts (auto) 11.0 H 10^3/uL
(1.4-6.5)
Absolute Lymphs (auto) 1.0 L 10^3/uL
(1.2-3.4)
Absolute Monos (auto) 1.0 H 10^3/uL
(0.1-0.6)
Immature Gran % 0.6 H %
(0-0.5)
Neutrophils % 84.0 H %
(42.2-75.2)
Lymphocytes % 7.4 L %
(20.5-51.1)
Chloride 95 L mmol/L
(98-107)
Carbon Dioxide 43 H mmol/L
(22-30)
BUN 49 H mg/dl
(9-20)
Glucose 135 H mg/dl
(70-99)
Total Protein 5.5 L g/dl
(6.3-8.2)
Albumin 3.3 L g/dl
(3.5-5.0)
11/27/24 09:55
11/27/24 09:55
Vital Signs
Initial and Last Documented VS:
Initial Vital Signs
Temp Pulse Resp BP Pulse Ox
98.3 F 69 23 118/64 100
11/27/24 08:56 11/27/24 08:56 11/27/24 08:56 11/27/24 08:56 11/27/24 08:56
Last Documented Vital Signs
Temp Pulse Resp BP Pulse Ox
98.3 F 69 23 118/64 99
11/27/24 08:56 11/27/24 08:56 11/27/24 08:56 11/27/24 09:20 11/27/24 09:20
Procedures
Nosebleed
Drug treatment: Lidocaine (4% lidocaine soaked gauze put in patient's left nare for 6 minutes)
Treatment: local pressure applied and Silver nitrate cautery
Additional information:
Bleeding seems to be well-controlled and stopped with lidocaine 4% topical and silver nitrate.
MDM/Problems Addressed
Differential Diagnosis Includes:
Blood loss anemia, COPD exacerbation, aspiration of blood
MDM/Problems Addressed:
Patient presents with acute nasal bleed
Chronic conditions affecting care: COPD
Acute Exacerbation and/or Progression of Chronic Illness:
Patient may have acute exacerbation of COPD. Additionally, there is a chance patient could have aspirated blood
Acute Exacerbation and/or Progression of Chronic Illness: COPD
*Radiology
Radiology exam reviewed: preliminary read by ED provider (Chest x-ray reviewed by me. Cardiomegaly without obvious infiltrate) and radiology read reviewed
*Pulse Oximetry
Patient hypoxic: yes
Comment: Patient put on 3 L of nonrebreather and pulse ox mid 90s.
*EKG
Interpreted by ED Provider?: NA
*[employer] Worker Interpretation
Rate: normal
Interpretation: normal
Rhythm: sinus
*Critical Care Note
Total Time (30-74mins, 75-104mins- exclusive of procedures): Not Applicable
Data Reviewed
Review of Other/Old Records Reveals: Discharge Summary (Discharge summary reviewed from July 2024 when patient was admitted for COPD exacerbation, CHF and pneumonia)
Source: patient, ambulance crew and pen[facility]
Patient Management
Social determinants of health affecting care: Living situation and Strong social support
Escalation/DeEscalation of care consider admission/obs:
Patient has been watched for several hours without any recurrence of nasal bleeding. The topical lidocaine and silver nitrate seem to have stopped the patient's left anterior epistaxis. He is resting comfortably. Patient transitioned several
hours ago from a nonrebreather of nasal oxygen to 3 L of nasal oxygen, and has had a pulse ox in the mid to high 90s. He reports that his breathing and coughing are at his baseline and is not concerned about any acute issue. He seems to be
breathing comfortably at this time. Patient told he needs to notify staff at the [facility] immediately if he feels more short of breath or he feels any concerns with his breathing or coughing.
ED Attending Note
-
Portions of this chart may have been created with voice recognition software.� Occasional wrong word or��sound alike� substitutions may have occurred due to the inherent limitations of voice recognition software.
Discharge Plan
Departure
Patient Disposition: Home (Routine Discharge)
Date of Disposition: 11/27/24
Time of Disposition: 11:05
Patient with high blood pressure during this ER visit?: Yes
Condition: Good
Covid-19: Not Applicable
Discharge Problem:
left anterior epistaxis
Instructions: Nosebleeds ED, BLOOD PRESSURE
Prescriptions:
No Action
amlodipine 5 MG tablet
5 mg PO DAILY 30 Days Qty: 30 0RF
aspirin 81 MG tablet,chewable
81 mg PO DAILY 30 Days Qty: 30 0RF
metoprolol tartrate 25 MG tablet
25 mg PO BID 30 Days Qty: 60 11RF
bicalutamide 50 mg tablet
50 mg PO DAILY
budesonide 0.5 mg/2 mL Suspension For Nebulization
0.5 mg inhalation R BID Qty: 60 0RF
acetaminophen 325 mg Tablet
650 mg PO Q4HPRN PRN (Reason: mild pain/fever)
sertraline 50 mg Tablet
100 mg PO DAILY
magnesium hydroxide [Milk of Magnesia] 400 mg/5 mL suspension
30 ml PO DAILYPRN PRN (Reason: constipation)
bisacodyl 10 mg suppository
10 mg [place] DAILYPRN PRN (Reason: if MOM is ineffective after 24 hrs)
atorvastatin 20 mg Tablet
20 mg PO HS
ipratropium-albuterol 0.5 mg-3 mg(2.5 mg base)/3 mL solution for nebulization
3 ml inhalation R BID
prednisone 20 mg Tablet
60 mg PO DAILY
potassium chloride 10 mEq Tablet Extended Release
20 meq PO DAILY
Fleet Enema 19-7 gram/118 mL Enema
118 ml [place] DAILYPRN PRN (Reason: if dulcolax is ineffective after 24 hrs)
guaifenesin [Mucinex] 1,200 mg Tablet Extended Release 12hr
1,200 mg PO BID
furosemide 20 mg tablet
60 mg PO BID
Referrals:
Adam Leiva I., [Family Provider] -
Mingo Mcgregor MD [Active] - (Call today for next open appointment)
Activity Restrictions/Additional Instructions:
Please return immediately if patient has signs or symptoms of increased work of breathing or any fever.
Patient should also follow-up with ear nose and throat (ENT) doctor
Interventions
Interventions:
*Risk Screen - Suicide Last Done: 11/27/24 08:56
*General Assessment Last Done: 11/27/24 08:56
*Neglect/Abuse Screening Last Done: 11/27/24 08:56
*ED- Fall Risk Assessment Last Done: 11/27/24 08:56
*ED COVID-19 Vaccine History Last Done: 11/27/24 08:56
ED-EENT Assessment Last Done: 11/27/24 09:44
Discharge Date and Time
Print Language: NAURUAN
[2024-11-27 10:00] VITALS: BP 101/64
[2024-11-27 10:04] LABS: % Basophils 0.2 % (0-2); % Immature Granulocytes 0.6 % (0-0.5); % Lymphocytes 7.4 % (20.5-51.1); % Monocytes 7.8 % (1.7-9.3); Absolute Immature Granulocytes 0.1 10^3/uL (0-0.05); Hematocrit 36.1 % (39.0-52.0); Hemoglobin 12.2 g/dL (13.0-18.0); Mean Corp Hgb Conc. 33.8 g/dL (33.0-37.0); Mean Corpuscular Hgb 29.8 pg (27.0-31.0); Mean Corpuscular Volume 88.3 fL (80.0-94.0); Mean Platelet Volume 9.9 fL (7.4-10.4); Nucleated Red Blood Cells % 0.2 % (-); Platelet Count 184 10^3/uL (130-400); Red Blood Cell Count 4.09 10^6/uL (4.70-6.10)
[2024-11-27 10:18] LABS: ALT (SGPT) 40 U/L (0-50); AST (SGOT) 26 U/L (17-59); Albumin 3.3 g/dl (3.5-5.0); Alkaline Phosphatase 92 U/L (38-126); Blood Urea Nitrogen 49 mg/dl (9-20); Calcium 8.8 mg/dl (8.4-10.2); Chloride 95 mmol/L (98-107); Estimated Creatinine Clearance 103 ml/min; Glucose 135 mg/dl (70-99); Potassium 3.9 mmol/L (3.5-5.1); Sodium 142 mmol/L (135-145); Total Bilirubin 0.9 mg/dl (0.2-1.3); Total Protein 5.5 g/dl (6.3-8.2); eGFR > 60.00
[2024-11-27 10:46] LABS: Carbon Dioxide 43 mmol/L (22-30)
[2024-11-27 11:21] VITALS: BP 119/62
[2024-11-27 12:00] VITALS: BP 119/61
== END 2024-11-27 12:27 ==
LOC: EMR 08:51
PROVIDERS: EMERGENCY PHYSICIAN Emergency Medicine; FAMILY PHYSICIAN Internal Medicine
DX: R04.0 Epistaxis (principal); I25.10 Atherosclerotic heart disease of native coronary artery without angina pectoris; I11.0 Hypertensive heart disease with heart failure; I50.32 Chronic diastolic (congestive) heart failure; I25.2 Old myocardial infarction; J44.9 Chronic obstructive pulmonary disease, unspecified; F17.200 Nicotine dependence, unspecified, uncomplicated; Z85.46 Personal history of malignant neoplasm of prostate
CPT/HCPCS: 30901; 99284; 71046; 80053; 85025

== ENCOUNTER 2024-11-30 19:15 | Emergency (ER) | payer OTHER, SELFPAY ==
[2024-11-30 19:15] VITALS: BMI 32.2
[2024-11-30 19:16] VITALS: BP 141/62
[2024-11-30 22:00] VITALS: BP 151/74
--- NOTE | 2024-11-30 22:39 | ED.GENMED ---
History of Present Illness
General
Chief Complaint: Nose Bleed
Source: patient
Exam Limitations: none
Time Seen by Provider: 11/30/24 22:19
Nursing documentation reviewed up to this point in time: agreed with
History of Present Illness
History of Present Illness:
74-year-old male via EMS with a nosebleed right greater than left seen here few days ago with similar, takes aspirin no other blood thinners is on chronic oxygen for CHF and COPD, here bleeding appears to have stopped, some dried clotted blood on
his right nare
Past History
Past History
ED Past Medical History: CAD, COPD and Other ( Adenocarcinoma of prostate, Muscle wasting and atrophy, Hypertension, Anxiety, NSTEMI (non-ST elevated myocardial infarction), Nocturia, Heart failure with preserved ejection fraction, VT (ventricular
tachycardia), Cellulitis, Metabolic encephalopathy, Acute respiratory failure with hyp)
ED Past Surgical History: Cardiac
Social History
Tobacco: Smoker
Alcohol: None
Drug: None
Personal:
Living: care home
Employment: Not employed
Family History
Family History: Unable to obtain (Patient obtunded)
Review of Systems
Review of Systems
All Other Systems: Not applicable
EENT: Reports other (Nosebleed)
Respiratory: Reports no symptoms
Phy Exam
Physical Exam
Physical Exam:
Physical Exam
General: Chronically ill male sleeping easily awakened
Neck: Oxygen bilateral nares dried blood in the right nare
Heart: Regular
Lungs: no acute respiratory distress. Crackles at the base
Neuro: alert and oriented. no focal neurological deficits
Skin: no rash
Psychiatric: cooperative
Extremities: no edema.
Course
Vital Signs
Initial and Last Documented VS:
Initial Vital Signs
Temp Pulse BP Pulse Ox
98.2 F 75 141/62 97
11/30/24 19:16 11/30/24 19:16 11/30/24 19:16 11/30/24 19:16
Last Documented Vital Signs
Temp Pulse Resp BP Pulse Ox
98.2 F 101 25 151/74 95
11/30/24 19:16 11/30/24 22:00 11/30/24 22:00 11/30/24 22:00 11/30/24 22:00
MDM/Problems Addressed
Differential Diagnosis Includes:
nose bleed
MDM/Problems Addressed:
Prior nosebleed chronic oxygen
Chronic conditions affecting care: COPD
Acute Exacerbation and/or Progression of Chronic Illness: COPD
*Pulse Oximetry
Patient hypoxic: no
*Critical Care Note
Total Time (30-74mins, 75-104mins- exclusive of procedures): Not Applicable
Update Note
Update Note:
Update looks like some dried blood in his nares no active bleeding suspect oxygen is is exacerbating source here, recommend coolmist, antibiotic ointment, saline etc.
ED Attending Note
-
Portions of this chart may have been created with voice recognition software.� Occasional wrong word or��sound alike� substitutions may have occurred due to the inherent limitations of voice recognition software.
Discharge Plan
Departure
Prescriptions:
No Action
amlodipine 5 MG tablet
5 mg PO DAILY 30 Days Qty: 30 0RF
aspirin 81 MG tablet,chewable
81 mg PO DAILY 30 Days Qty: 30 0RF
metoprolol tartrate 25 MG tablet
25 mg PO BID 30 Days Qty: 60 11RF
bicalutamide 50 mg tablet
50 mg PO DAILY
budesonide 0.5 mg/2 mL Suspension For Nebulization
0.5 mg inhalation R BID Qty: 60 0RF
acetaminophen 325 mg Tablet
650 mg PO Q4HPRN PRN (Reason: mild pain/fever)
sertraline 50 mg Tablet
100 mg PO DAILY
magnesium hydroxide [Milk of Magnesia] 400 mg/5 mL suspension
30 ml PO DAILYPRN PRN (Reason: constipation)
bisacodyl 10 mg suppository
10 mg [place] DAILYPRN PRN (Reason: if MOM is ineffective after 24 hrs)
atorvastatin 20 mg Tablet
20 mg PO HS
ipratropium-albuterol 0.5 mg-3 mg(2.5 mg base)/3 mL solution for nebulization
3 ml inhalation R BID
prednisone 20 mg Tablet
60 mg PO DAILY
potassium chloride 10 mEq Tablet Extended Release
20 meq PO DAILY
Fleet Enema 19-7 gram/118 mL Enema
118 ml [place] DAILYPRN PRN (Reason: if dulcolax is ineffective after 24 hrs)
guaifenesin [Mucinex] 1,200 mg Tablet Extended Release 12hr
1,200 mg PO BID
furosemide 20 mg tablet
60 mg PO BID
Interventions
Interventions:
*Risk Screen - Suicide Last Done: 11/30/24 19:16
*General Assessment Last Done: 11/30/24 19:16
*Neglect/Abuse Screening Last Done: 11/30/24 19:16
*ED COVID-19 Vaccine History Last Done: 11/30/24 19:16
ED-EENT Assessment Last Done: 11/30/24 21:58
Discharge Date and Time
Print Language: DANISH
[2024-11-30 23:00] VITALS: BP 131/104
[2024-12-01] VITALS: BP 132/93
[2024-12-01 01:00] VITALS: BP 141/80
[2024-12-01 01:58] VITALS: BP 133/78
== END 2024-12-01 02:19 | disposition home or self-care (01) ==
LOC: EMR 19:15
PROVIDERS: EMERGENCY PHYSICIAN Emergency Medicine; FAMILY PHYSICIAN Internal Medicine
DX: R04.0 Epistaxis (principal); J44.9 Chronic obstructive pulmonary disease, unspecified; F17.200 Nicotine dependence, unspecified, uncomplicated
CPT/HCPCS: 99282

== ENCOUNTER 2024-12-12 11:30 | Inpatient (IN) | payer MEDICARE, OTHER, SELFPAY ==
[2024-12-12] VITALS (33 sets, daily range): BP systolic 74–118; BP diastolic 43–81; PULSE 2–77; BMI 32.8; BMI 29.3
--- NOTE | 2024-12-12 08:43 | ED.GENMED ---
History of Present Illness
General
Chief Complaint: Change in Mental Status
Time Seen by Provider: 12/12/24 08:37
History of Present Illness
History of Present Illness:
74-year-old male with history of chronic respiratory failure on 4L O2, COPD, CHF on Lasix presenting from [facility] for change in mental status. Per rehab facility, was noted to have a change in mental status, additionally with low oxygen and
low blood pressure. Patient on arrival denies any acute complaints. Does note that he had a cough, however it went away. Denies any difficulty breathing. Patient arrives with lower extremity swelling, denies any change in his swelling. However,
patient has bouts of confusion while speaking, limited historian. No additional history report at this time.
Past History
Past History
ED Past Medical History: CAD, COPD and Other ( Adenocarcinoma of prostate, Muscle wasting and atrophy, Hypertension, Anxiety, NSTEMI (non-ST elevated myocardial infarction), Nocturia, Heart failure with preserved ejection fraction, VT (ventricular
tachycardia), Cellulitis, Metabolic encephalopathy, Acute respiratory failure with hyp)
ED Past Surgical History: Cardiac
Social History
Tobacco: Smoker
Alcohol: None
Drug: None
Personal:
Living: custodial
Employment: Not employed
Family History
Family History: Unable to obtain (Patient obtunded)
Phy Exam
Physical Exam
Physical Exam:
General: Morbidly obese, dry mucous membranes
HEENT: protecting airway
Neck: appears supple
CV: Tachycardic, regular rhythm, no evidence of cyanosis
Resp: Mild tachypnea with scattered rales and rhonchi
Abd: Soft and non-distended, no tenderness to palpation
Extremities: No deformities, +3 pitting edema bilaterally
Neuro: alert, disoriented to time
: deferred
Rectal: deferred
Psych: Normal affect
Skin: Intact
Sepsis
Sepsis Screening
Sepsis Assessment: Sepsis
Sepsis Screen
Sepsis Screen: Sepsis
Date: 12/12/24
Time: 10:22
Course
Orders/Labs/Results
Orders:
Orders
12/12/24 08:37
Electrocardiogram (*1) Urgent
Reason for Study: Other
Other Reason for Exam: sepsis
EKG- Treatment ONCE
Urinalysis Reflex To Culture Urgent
CR Chest Portable - 1 View Urgent
Comment:
Reason For Exam: hypoxia
Reason Study Needs to be Portable: Unable to Transport
12/12/24 08:38
0.9% Sodium Chloride 500 ml [Nss] 500 ml IV BOLUS
Acetaminophen [Tylenol] 650 mg PO NOW STA
12/12/24 09:07
COVID-19 Antigen Urgent
Source: Nasal Swab
Influenza A+B Rapid Molecular Urgent
DEMARCUS Source: Nasal Swab
Specimen Description:
12/12/24 09:39
Complete Blood Count/With Diff Urgent
Comprehensive Metabolic Panel Urgent
Lactic Acid Q4H
Comment: CANCEL 2nd LACTIC ACID IF 1st LACTIC ACID IS LESS THAN 2
PTT Urgent
Prothrombin Time Urgent
Troponin I Urgent
Venous Blood Gas Urgent
%Oxygen/Room Air: 30
Blood Culture Q30M
DEMARCUS Source: Blood/Venous
Specimen Description:
12/12/24 09:55
Blood Culture Q30M
DEMARCUS Source: Blood/Venous
Specimen Description:
12/12/24 10:17
Cefepime HCl [Maxipime] 2,000 mg IV NOW STA
Potassium Chloride [KCl] 40 meq 0.9% Sodium Chloride 250 ml [Nss] 250 ml IV NOW
12/12/24 10:18
Vancomycin [Vancocin] 2,000 mg 0.9% Sodium Chloride 500 ml [Nss] 500 ml IV NOW
Abnormal Lab Results
12/12/24
09:39
RBC 4.11 L 10^6/uL
(4.70-6.10)
Hgb 12.2 L g/dL
(13.0-18.0)
Hct 36.7 L %
(39.0-52.0)
RDW 14.6 H %
(11.5-14.5)
VBG pH 7.51 H
(7.32-7.43)
VBG pCO2 71 H* mmHg
(35-48)
VBG pO2 110 H mmHg
(30-50)
VBG HCO3 56.7 H mmol/L
(22-27)
Potassium 2.9 L mmol/L
(3.5-5.1)
Chloride 88 L mmol/L
(98-107)
BUN 49 H mg/dl
(9-20)
Creatinine 1.4 H mg/dL
(0.7-1.3)
Glucose 141 H mg/dl
(70-99)
Total Bilirubin 1.6 H mg/dl
(0.2-1.3)
Troponin I 0.455 H* ng/ml
Total Protein 5.5 L g/dl
(6.3-8.2)
Albumin 3.2 L g/dl
(3.5-5.0)
12/12/24 09:39
12/12/24 09:39
Vital Signs
Initial and Last Documented VS:
Initial Vital Signs
Temp Pulse Resp BP Pulse Ox
99.1 F 145 24 85/66 80
12/12/24 08:32 12/12/24 08:32 12/12/24 08:32 12/12/24 08:32 12/12/24 08:32
Last Documented Vital Signs
Temp Pulse Resp BP Pulse Ox
100.5 F H 98 24 100/67 95
12/12/24 08:51 12/12/24 09:45 12/12/24 09:45 12/12/24 09:30 12/12/24 09:45
MDM/Problems Addressed
MDM/Problems Addressed:
74-year-old male with history of chronic respiratory failure on 4L O2, COPD, CHF on Lasix presenting for a change in mental status. Vitals unstable on arrival with hypoxia, fever, tachycardia, hypotension.
On exam patient is in no significant distress, mild tachypnea. He is otherwise reporting any acute complaints. However, vital signs are concerning, particularly with meeting SIRS criteria. Ultimately suspect infection. In the setting of hypoxia
and fever, likely viral versus bacterial pneumonia. Will obtain chest x-ray and viral swabs. Will also send cultures and lactic acid. Patient with known history of chronic respiratory failure and COPD, has very large neck. Notes that he does not
wear CPAP at night. Medics had also noted oxygen 'as needed', however on paperwork, patient is 4 L dependent. Suspect intermittent compliance, possible hypercapnia contributing to confusion. Will obtain VBG. Patient placed on nasal cannula,
however sats still in the 80s. Respiratory called for high flow. Tylenol administered for fever. Patient does have pitting edema, some crackles, so concern for pulmonary edema. However in the setting of hypotension and dry mucous membranes, will
start gentle fluids for concern of intravascular depletion.
10:20 -patient with some CO2 retention, likely acute on chronic. Patient placed on BiPAP. No leukocytosis, normal lactic acid, without concern for severe sepsis or septic shock. Blood pressure has improved with fluids. Chest x-ray shows concern
for pneumonia. Will start antibiotics. Potassium is low, will replete. Plan for admission for sepsis from pulmonary source.
*EKG
Interpreted by ED Provider?: Yes
EKG Intrepretation Date: 12/12/24
EKG Intrepretation Time: 08:55
Interpretation: normal
Heart Rate: 87
Rate: normal
Rhythm: sinus and PAC's
Pierson: left axis deviation
Interval: normal interval
QRS Pattern: normal QRS
Ischemia: non-specific ST changes
*Critical Care Note
Total Time (30-74mins, 75-104mins- exclusive of procedures): 60
comment:
The high probability of a clinically significant, sudden or life threatening deterioration of the cardiopulmonary system(s) required my full and direct attention, intervention and personal management. The aggregate critical care time was 60 minutes.
This time is in addition to time spent performing reported procedures but includes the following:
[x] Data Review and interpretation
[x] Patient assessment and monitoring of vital signs
[x] Documentation
[x] Medication orders and management
ED Attending Note
-
Portions of this chart may have been created with voice recognition software.� Occasional wrong word or��sound alike� substitutions may have occurred due to the inherent limitations of voice recognition software.
Discharge Plan
Departure
Prescriptions:
No Action
amlodipine 5 MG tablet
5 mg PO DAILY 30 Days Qty: 30 0RF
aspirin 81 MG tablet,chewable
81 mg PO DAILY 30 Days Qty: 30 0RF
metoprolol tartrate 25 MG tablet
25 mg PO BID 30 Days Qty: 60 11RF
bicalutamide 50 mg tablet
50 mg PO DAILY
budesonide 0.5 mg/2 mL Suspension For Nebulization
0.5 mg inhalation R BID Qty: 60 0RF
acetaminophen 325 mg Tablet
650 mg PO Q4HPRN PRN (Reason: mild pain/fever)
sertraline 50 mg Tablet
100 mg PO DAILY
magnesium hydroxide [Milk of Magnesia] 400 mg/5 mL suspension
30 ml PO DAILYPRN PRN (Reason: constipation)
bisacodyl 10 mg suppository
10 mg [place] DAILYPRN PRN (Reason: if MOM is ineffective after 24 hrs)
atorvastatin 20 mg Tablet
20 mg PO HS
ipratropium-albuterol 0.5 mg-3 mg(2.5 mg base)/3 mL solution for nebulization
3 ml inhalation R BID
prednisone 20 mg Tablet
60 mg PO DAILY
potassium chloride 10 mEq Tablet Extended Release
20 meq PO DAILY
Fleet Enema 19-7 gram/118 mL Enema
118 ml [place] DAILYPRN PRN (Reason: if dulcolax is ineffective after 24 hrs)
guaifenesin [Mucinex] 1,200 mg Tablet Extended Release 12hr
1,200 mg PO BID
furosemide 20 mg tablet
60 mg PO BID
oxymetazoline 0.05 % Adair,Non-Aerosol
2 spray INTRANASAL QID
Referrals:
Adam Leiva I., DO [Family Provider] -
Interventions
Interventions:
*Risk Screen - Suicide Last Done: 12/12/24 08:32
*General Assessment Last Done: 12/12/24 08:32
*Neglect/Abuse Screening Last Done: 12/12/24 08:32
*ED- Fall Risk Assessment Last Done: 12/12/24 08:32
*ED COVID-19 Vaccine History Last Done: 12/12/24 08:32
ED- Pulmonary Assessment Last Done: 12/12/24 08:32
ED- Neurological Assessment Last Done: 12/12/24 08:32
ED- Cardiac Assessment Last Done: 12/12/24 08:32
Discharge Date and Time
Print Language: TURKISH
[2024-12-12] MEDS: TYLENOL 650 MG PO (09:02)
[2024-12-12 09:41] LABS: COVID-19 Antigen Negative (Negative)
[2024-12-12 09:50] LABS: Venous Blood Gas B.E. 28.6 mmol/L (-4 to +4); Venous Blood Gas HCO3 56.7 mmol/L (22-27); Venous Blood Gas O2 Sat % 99.1 %; Venous Blood Gas pH 7.51 (7.32-7.43); Venous Blood Gas pO2 110 mmHg (30-50)
[2024-12-12 09:51] LABS: Venous Blood Gas pCO2 71 mmHg (35-48)
[2024-12-12 09:57] LABS: Hematocrit 36.7 % (39.0-52.0); Hemoglobin 12.2 g/dL (13.0-18.0); Mean Corp Hgb Conc. 33.2 g/dL (33.0-37.0); Mean Corpuscular Hgb 29.7 pg (27.0-31.0); Mean Corpuscular Volume 89.3 fL (80.0-94.0); Mean Platelet Volume 9.9 fL (7.4-10.4); Platelet Count 207 10^3/uL (130-400); Red Blood Cell Count 4.11 10^6/uL (4.70-6.10); Red Cell Dist. Width 14.6 % (11.5-14.5); White Blood Cell Count 10.7 10^3/uL (4.8-10.8)
[2024-12-12 10:02] LABS: ALT (SGPT) 28 U/L (0-50); AST (SGOT) 21 U/L (17-59); Albumin 3.2 g/dl (3.5-5.0); Alkaline Phosphatase 86 U/L (38-126); Blood Urea Nitrogen 49 mg/dl (9-20); Calcium 9.5 mg/dl (8.4-10.2); Chloride 88 mmol/L (98-107); Estimated Creatinine Clearance 55 ml/min; Glucose 141 mg/dl (70-99); Potassium 2.9 mmol/L (3.5-5.1); Sodium 142 mmol/L (135-145); Total Bilirubin 1.6 mg/dl (0.2-1.3); Total Protein 5.5 g/dl (6.3-8.2); eGFR 52.41
[2024-12-12] MEDS: NSS 500 IV ×2 (10:02→17:53)
[2024-12-12 10:03] LABS: Lactic Acid 1.7 mmol/L (0.7-2.0)
[2024-12-12 10:18] LABS: Troponin I 0.455 ng/ml
[2024-12-12 10:27] LABS: INR 1.18; PT 15.5 Sec (11.4-14.6)
[2024-12-12] MEDS: MAXIPIME 2000 MG IV (10:40)
--- NOTE | 2024-12-12 10:41 | HPS.HSE ---
Addendum entered and electronically signed by Gerri Moreno MD 12/12/24 17:44:
low blood pressures this afternoon in setting of sepsis
will order small bolus and gentle IVF
likely extravascularly wet and intravascularly dry
if renal function worsens tomorrow will consult renal to help with volume status
Addendum entered and electronically signed by Gerri Moreno MD 12/12/24 16:16:
patient cannot take oral pills, too sedated
will order standing IV metoprolol
Addendum entered and electronically signed by Gerri Moreno MD 12/12/24 13:55:
NSVT, didn't take Metoprolol this morning, will order now
K+ infusing
Mag OK
Addendum entered and electronically signed by Gerri Moreno MD 12/12/24 11:34:
patient's sister updated
Original Note:
Family Physician
-
Family Physician: Adam Leiva
Chief Complaint
-
confusion
History of Present Illness
Mr. Adam Styles is a 74 yo m an with hx COPD, chronic hypoxic respiratory failure on 4L O2, CHF, CAD (NSTEMI s/p PCI 2021), HFpEF, essential HTN, HLD, prostate CA, former smoker presents to the ER with change in mentation. Patient was at
[place], noted to have somnolence, low oxygen and low blood pressure.
Most recent admission was 08/08-08/17/24 for heart failure exacerbation, pneumonia and COPD exacerbation. BiPAP prescribed for outpatient setting.
Patient denies chest pain. He wants to drink fluids. He states he recently had a cough. He sometimes uses BiPAP at home at night. Legs appear more swollen than normal. No abdominal pain. No nausea/vomiting/diarrhea.
Medical History
Past Medical History
Past Medical History: Reports Other (severe COPD, chronic hypoxic respiratory failure on 4L O2, CHF, CAD (NSTEMI s/p PCI 2021), HFpEF, essential HTN, HLD, prostate CA, former smoker )
Past Surgical History: Reports None
Social History
Tobacco: Smoker
Alcohol: None
Drug: None
Family History
Family History: Not pertinent
Allergies / Home Medications
Allergies reflects when Allergies were last updated in [facility] [employer].
Home Medications with original date entered in [facility] [facility]
Allergy/Medication List:
Allergies
Allergy/AdvReac Type Severity Reaction Status Date / Time
No Known Allergies Allergy Verified 11/30/24 19:19
Home Medications
amlodipine 5 mg tablet 5 mg PO DAILY 30 days #30 tabs 04/01/22
aspirin 81 mg chewable tablet 81 mg PO DAILY Heart disease/condition 30 days #30 tabs 04/01/22
metoprolol tartrate 25 mg tablet 25 mg PO BID Heart disease/condition 30 days #60 tabs 04/01/22
bicalutamide 50 mg tablet 50 mg PO DAILY 03/31/23
budesonide 0.5 mg/2 mL suspension for nebulization 0.5 mg (2 mL) inhalation R BID #60 mL 04/15/23
acetaminophen 325 mg tablet 650 mg PO Q4HPRN PRN mild pain/fever 01/31/24
bisacodyl 10 mg rectal suppository 10 mg [place] DAILYPRN PRN if MOM is ineffective after 24 hrs 01/31/24
magnesium hydroxide 400 mg/5 mL oral suspension (Milk of Magnesia) 30 ml PO DAILYPRN PRN constipation 01/31/24
sertraline 50 mg tablet 100 mg PO DAILY Mental Health/Anxiety 01/31/24
atorvastatin 20 mg tablet 20 mg PO HS High Cholesterol 08/08/24
ipratropium 0.5 mg-albuterol 3 mg (2.5 mg base)/3 mL nebulization soln 3 ml inhalation R BID Lung/Breathing Issues 08/09/24
furosemide 20 mg tablet 60 mg PO BID 11/15/24
guaifenesin 1,200 mg tablet, extended release 12 hr (Mucinex) 1,200 mg PO BID 11/15/24
potassium chloride 10 mEq tablet,extended release 20 meq PO DAILY 11/15/24
prednisone 20 mg tablet 60 mg PO DAILY 11/15/24
sodium phosphates 19 gram-7 gram/118 mL enema (Fleet Enema) 118 ml [place] DAILYPRN PRN if dulcolax is ineffective after 24 hrs 11/15/24
oxymetazoline 0.05 % nasal spray 2 spray intranasal QID 12/12/24
Review of Systems
-
History Source: Patient
A 12 point ROS was completed and negative except as noted: Yes
Physical Exam
Vital Signs
Vital Signs
Temp Pulse Resp BP Pulse Ox
100.5 F H 98 24 100/67 95
12/12/24 08:51 12/12/24 09:45 12/12/24 09:45 12/12/24 09:30 12/12/24 09:45
Physical Exam
General: Other (conversant on BiPAP)
HEENT: PERRLA
Respiratory: Rhonchi; No Wheezes
Cardiac: S1/S2 and Regular Rhythm
GI: Soft and Non Tender
Musculoskeletal: Edema, Left Lower Extremity and Edema, Right Lower Extremity
Skin: Warm and Dry; No Rash
Neuro: Awake and Alert
Psych: Calm
Laboratory Results
-
12/12/24 09:39
12/12/24 09:39
Laboratory Results
PT 15.5 Sec (11.4-14.6) H 12/12/24 09:39
INR 1.18 12/12/24 09:39
APTT 29.0 Sec (23.4-35.0) 12/12/24 09:39
Lactic Acid Cancelled 12/12/24 12:45
Total Bilirubin 1.6 mg/dl (0.2-1.3) H 12/12/24 09:39
AST 21 U/L (17-59) 12/12/24 09:39
ALT 28 U/L (0-50) 12/12/24 09:39
Alkaline Phosphatase 86 U/L (38-126) 12/12/24 09:39
Troponin I 0.455 ng/ml H* 12/12/24 09:39
Data Reviewed
-
Diagnostic Radiology: Report Reviewed by me
Lab Data: Labs Reviewed by me
Impression/Plan
-
Mr. Adam Styles is a 74 yo m an with hx COPD, chronic hypoxic respiratory failure on 4L O2, HFpEF, CAD (NSTEMI s/p PCI 2021), HFpEF, essential HTN, HLD, prostate CA, former smoker presents to the ER with change in mentation. Patient was at
[place], noted to have somnolence, low oxygen and low blood pressure.
Triage VS: T 99.1 --> 100.5, P 145, RR 24, BP 85/66, SpO2 80%
LABS: WBC 10.7, Hg 12.2, PLT 207, Na 142, K+ 2.9, Cl 88, Cr 1.4 (baseline 0.8), T. Bili 1.6, AST 21, ALT 28, Troponin 0.455
Lactate 1.7
Flu and Covid negative
ABG: pH 7.51, CO2 71, HCO2 56.7
CXR
IMPRESSION:
Right greater than left bibasilar opacities, atelectasis versus pneumonia.
EKG with non-specific ST and T wave changes; sinus rhtyhm with PAC's
MAR: IV Vanc/Cefepime; 500cc IVF, 40mEq IV K
Sepsis 2/2 Bilateral Pneumonia
Hypotension responsive to IVF
Acute on Chronic Hypoxic Respiratory Failure
Chronic Hypercapnic Respiratory Failure
Respiratory acidosis with compensatory metabolic alkalosis
-placed on BiPAP in the ER
-admit to IMU
-Pulmonary consult
-continue IV Vanc/Cefepime/Azithro
-MRSA screen, if negative stop Vanc
-[employer] Budesonide
-standing nebulizers and PRN
-continue Mucinex
-IV Decadron 10mg now and continue [employer] prednisone dose 60mg QD tomorrow
-confirmed with patient his FULL CODE status - further discussions to have this admission given his severe COPD
Heart Failure preserved EF
-TTE 08/09/24 with EF 55%, mild concentric LVH
-on Lasix 60mg PO BID at home
-volume status difficult as presented hypotensive and responsive to fluids; he has CLEMENTINE but with significant LE swelling. given body habitus cannot assess JVP
-will obtain doppler LE
-hold off on further fluids, will also hold Lasix at this time (given hypotension and hypokalemia)
-once K improved, will consider IV Lasix
-F/U BNP
Hypokalemia
-receiving 40mEq now; repeat this afternoon and replete further if needed
-add on Magnesium
Nonischemic myocardial Troponin Elevation
-in setting of hypoxia and sepsis
-no chest pain
-trend Troponin
Depression
-[employer] Zoloft
Acute Kidney Injury
-s/p small bolus
-add on urine studies
-patient looks overloaded on exam; consider IV lasix this afternoon once K repleted
Essential HTN
-hold [employer] Amlodipine
-[employer] Metoprolol with hold parameters
CAD with hx PCI
-[employer] asa/statin/Metoprolol
DVT PPx Hep subQ
FULL CODE - on patient's forms from [place], confirmed on admission
Total Critical Care Time 50 minutes. I was immediately available to the patient and staff. I personally examined, reviewed labs, diagnostic images/reports, interpretations, treatment plans, discussed patient care with other providers and family
or caregivers (if patient is unable to make decisions), entered orders as appropriate and documented the medical record.
[2024-12-12 11:26] LABS: Carbon Dioxide 45 mmol/L (22-30)
[2024-12-12] MEDS: ZITHROMAX INFUSION 250 IV (11:31)
[2024-12-12] MEDS: KCL 270 MEQ IV (11:32)
[2024-12-12] MEDS: DECADRON 10 MG IV (11:48)
[2024-12-12 11:53] LABS: NT-proBNP 2490 pg/ml
--- NOTE | 2024-12-12 12:00 | CON.PUL ---
Consultation
Consultation Request
Date/Time Consultation Requested: 12/12/2024
Date/Time Consultation Performed: 12/12/2024
Requesting Provider: Dr. Moreno
Performing Provider: Dr. Shashank Marte
Reason for Consultation: Acute hypoxemic respiratory
Medical History
-
History of Present Illness:
74-year-old man well-known to me from the outpatient setting history of advanced COPD, chronic hypoxemic respiratory failure on 4 L supplemental oxygen, heart failure, coronary artery disease, prior stents in 2021, heart failure with preserved
ejection fraction, hypertension, hyperlipidemia, prostate cancer, former smoker who came to the hospital because of mental status change.
Patient lives at [facility]. He was somnolent-found to be hypoxemic and hypotensive.
-
It is noted that this patient was admitted in July 2024 for heart failure, pneumonia and acute exacerbation of COPD. BiPAP was prescribed due to hypercapnia at that time.
-
Patient in the past has history of poor compliance with medical regimen based on outpatient records.
Has not been using BiPAP consistently.
Has worsening lower extremity edema.
Unable to provide detailed history at this point
Past Medical History
Past Medical History: Other (see list below)
Social History
Tobacco: Former Smoker
Alcohol: None
Drug: None
Family History
Family History: Reviewed & Not Pertinent
Allergies / Home Medications
Allergies
Allergy/AdvReac Type Severity Reaction Status Date / Time
No Known Allergies Allergy Verified 11/30/24 19:19
Home Medications
�Medication �Instructions �Recorded �Confirmed �Last Taken �Type
amlodipine 5 mg tablet 5 mg PO DAILY 30 days #30 tabs 04/01/22 12/12/24 Unknown Rx
aspirin 81 mg chewable tablet 81 mg PO DAILY Heart 04/01/22 12/12/24 Unknown Rx
disease/condition 30 days #30 tabs
metoprolol tartrate 25 mg tablet 25 mg PO BID Heart 04/01/22 12/12/24 Unknown Rx
disease/condition 30 days #60 tabs
bicalutamide 50 mg tablet 50 mg PO DAILY 03/31/23 12/12/24 Unknown History
budesonide 0.5 mg/2 mL suspension 0.5 mg (2 mL) inhalation R BID #60 04/15/23 12/12/24 Unknown Rx
for nebulization mL
acetaminophen 325 mg tablet 650 mg PO Q4HPRN PRN mild 01/31/24 12/12/24 Unknown History
pain/fever
bisacodyl 10 mg rectal suppository 10 mg SD DAILYPRN PRN if MOM is 01/31/24 12/12/24 Unknown History
ineffective after 24 hrs
magnesium hydroxide 400 mg/5 mL 30 ml PO DAILYPRN PRN constipation 01/31/24 12/12/24 Unknown History
oral suspension (Milk of Magnesia)
sertraline 50 mg tablet 100 mg PO DAILY Mental 01/31/24 12/12/24 Unknown History
Health/Anxiety
atorvastatin 20 mg tablet 20 mg PO HS High Cholesterol 08/08/24 12/12/24 Unknown History
ipratropium 0.5 mg-albuterol 3 mg 3 ml inhalation R BID 08/09/24 12/12/24 Unknown History
(2.5 mg base)/3 mL nebulization Lung/Breathing Issues
soln
furosemide 20 mg tablet 60 mg PO BID 11/15/24 12/12/24 Unknown History
guaifenesin 1,200 mg tablet, 1,200 mg PO BID 11/15/24 12/12/24 Unknown History
extended release 12 hr (Mucinex)
potassium chloride 10 mEq 20 meq PO DAILY 11/15/24 12/12/24 Unknown History
tablet,extended release
prednisone 20 mg tablet 60 mg PO DAILY 11/15/24 12/12/24 Unknown History
sodium phosphates 19 gram-7 118 ml SD DAILYPRN PRN if dulcolax 11/15/24 12/12/24 Unknown History
gram/118 mL enema (Fleet Enema) is ineffective after 24 hrs
oxymetazoline 0.05 % nasal spray 2 spray intranasal QID 12/12/24 12/12/24 Unknown History
Review of Systems
-
History Source: Patient
All other systems: Negative unless noted
Vitals / Labs / Diagnostic Testing
Vital Signs
Temp Pulse Resp BP Pulse Ox
100.5 F H 76 31 111/58 88
12/12/24 08:51 12/12/24 11:30 12/12/24 11:30 12/12/24 11:30 12/12/24 11:30
Lab Data
12/12/24 09:39
Laboratory Results
12/12/24
09:39
PT 15.5 H
INR 1.18
APTT 29.0
Microbiology
12/12/24 09:07 Nasal Swab Influenza Types A & B (NICOLE) - Final
Negative for Influenza A & B, NAAT
Negative results must be combined with clinical observations
and patient history.
Nucleic Acid Amplification test (NAAT)performed on the
[employer] platform.
Diagnostic Testing:
Physical Exam
-
HEENT: Normocephalic
Cardiovascular: S1/S2
Respiratory: Rales
GI: Soft and Distended (Obese)
Neurology: Awake
Skin: Warm
General: Respiratory Distress and Comfortable ( mild at rest)
Assessment
-
Patient is a 74 year old M with previous history of severe COPD/emphysema, chronic hypoxemia, obesity, suspected RICARDO/OHS (refused testing), noncompliance presenting to ER with change in mental status, hypoxemia per. Presents from [place],
usually on 4 L. He was placed on noninvasive mechanical ventilation and high flow oxygen in the emergency room. I was consulted on 12/12/2024 for evaluation.
Acute on chronic hypoxic and hypercarbic respiratory failure-change in mental status-requiring noninvasive mechanical ventilation/high flow oxygen
VBG 12/12/2024: 7.51/71/110-likely stable as prior ABG 11/15/2024 was 7.45/71/90
Chest x-ray 12/12/2024: Bibasilar opacities left greater than right.
Possible pneumonia, cannot rule out aspiration
Low-grade fever/no leukocytosis
Negative influenza/negative COVID 12/12/2024
Acute HF exacerbation, proBNP 2490
-
Medical noncompliance
Advanced COPD with chronic hypercapnic and hypoxemic respiratory failure-possibly some degree of acute exacerbation.
Not compliant with oxygen therapy
Declined noninvasive mechanical ventilator in the outpatient setting
Obesity hypoventilation syndrome suspected-chronic hypercapnic respiratory failure appears stable based on VBG from 12/12/2024 per
Conditions present JET MAN:
Coronary disease with history of LAD stent and elevated filling pressures per catheterization December 2021
Noncompliance, refusal of treatment
Severe COPD/emphysema, GOLD IV
FEV1 30%
Follows with Dr. Marte in OP last seen 06/2024 - Saw Delmy MARADIAGA.
Regimen: Pulmicort twice a day/DuoNebs 3-4 times a day/albuterol HFA as needed.
Decline pulmonary embolization in the past
Decline low-dose radiation screening-has not followed through. Most recent CT chest in the hospital 08/15/2024: No lung nodules.
Chronic hypoxemia, on 2-4L
Severe pulm hypertension, PA pressure 70-likely due to chronic hypercapnic respiratory failure/advanced COPD
Echocardiogram 08/09/2024: LVEF 55%. Mild LVH. Dilated right ventricular with low normal RV systolic function. Estimated pulmonary pressure 65-70 mmHg.
Poor compliant with oxygen.
Suspect RICARDO/OHS, never had sleep study/declined testing
He declined therapy 06/2024
Prostate cancer
Incomplete right bundle branch block
Obesity
Prot mirabilis UTI
History of lower extremity cellulitis
Former smoker: Quit at least 2-1/2 years ago. 40+ pack year history
Plan:
Respiratory decompensation multifactorial-with low-grade fever , Bibasilar infiltrate cannot rule out infectious etiology.
-
Agree with broad-spectrum antibiotics
Sputum culture
Blood culture
Aspiration precautions
-
Continue supplemental oxygen usually on up to 4 L supplemental oxygen.
Currently 96% on 6 L. Mild increased work of breathing.
Appears somnolent but arousable, following simple commands.
High flow oxygen as necessary to maintain pulse ox above 90%
May use noninvasive mechanical ventilation for increased work of breathing and at bedtime. Patient has declined chronic noninvasive mechanical ventilation in the outpatient setting.
VBG appears to be at least stable compared to prior ABG. Does not appear to have hypercapnic decompensation
-
Continue nebulizer therapy Pulmicort
DuoNebs [id number] 4 times daily
Did receive Solu-Medrol in the ED-maintain 60 mg daily. Slow taper.
Incentive spirometry when able
Acapella device when able
Avoid sedatives
-
Appears to be in anasarca: Has dry mucous membranes per
Acute kidney injury and hypokalemia. Suspect intravascularly depleted.
Patient to have lower extremity edema
Increased proBNP-similar to prior.
Has been on oral Lasix in the outpatient setting currently hypokalemic.
Holding aggressive IV diuresis for now until potassium is repleted and then reassess
-
Does have hypoalbuminemia
Check UA look for proteinuria as the patient has type 2 diabetes poorly controlled.
-
Patient has significant pulmonary hypertension with RV dysfunction-likely to underlying pulmonary disease, poor compliance with oxygen therapy, untreated obesity hypoventilation syndrome and diastolic heart failure
Continue oxygen plantation to maintain pulse ox above 90%
Holding diuresis-appears dry on exam.
-
Former smoker: Quit several 2-3 years ago. Has not followed through with low-dose radiation CAT scan.
CT chest 08/15/2024-no evidence for pulm embolism, moderate to advanced emphysematous lung changes and in the posterior right lower lobe bronchial wall thickening suggesting secretions or mucous plugging.
-
Will need repeat chest x-ray to document radiographic follow-up after this admission.
-
-
DVT prophylaxis: Lovenox
Early mobilization/physical therapy when medically stable.
Poor prognosis. Respiratory status is tenuous.
Patient is full code.
As above he has decline addressed CODE STATUS in the past
-
Prior admission conversations:
He understands high risk of readmission and without noninvasive mechanical ventilation.
Multiple extensive discussion with him in the outpatient setting and during this admission.
Patient has repeatedly stated he has no intention to continue BPAP as outpatient: we have discussed hospice but he does not believe he is ill
He does not feel he has any issue with his lungs, he is in 'perfect health.'
He does not wish to change his code status and does not have family/medical POA designation (he says he has no children or siblings, despite sister is contact). He feels he does not need anyone.
He is not ready for hospice despite his level of noncompliance.
Prior conversations:
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
Noted full code status
Will benefit from C discussion with family, given his multiple comorbidities and persistent medical noncompliance. He may be at increased risk for prolonged mechanical ventilation and associated complications. In my humble opinion he should be
DNR/DNI.
This was discussed with him and care team on prior visits
unfortunately he has very poor insight
Not much else to offer.
Follow up with Dr. Marte after discharge known to have poor compliance with therapy, unable to afford medications, poor compliant with oxygen, refusing BiPAP, last time seen in June 2024 with ASHWINI.
Diagnostic Data
CXR 08/08/24- Cardiomegaly. Radiographic findings felt to most likely represent pulmonary edema.
CXR 03-31-23 (portable) c/w 01-16-22 (PA/lat): Old films with no infiltrates. Current film slightly lordotic/rotated. R basilar linear atelectasis, mild pulm vasc congestion
PET CT 01-17-23 IMPRESSION: [Marked uptake of activity in the prostate gland suspicious for malignancy.] Extension of malignancy to involve the seminal vesicles cannot be excluded on the basis of this study. Coronary artery calcifications and
sigmoid diverticulosis. Please note, evaluation may be limited with possible false negative results in light of the large volume of activity seen in the prostate gland.
R leg doppler 03-31-23: negative
TTE 04-01-23 CONCLUSIONS: Normal left ventricular chamber size. Normal left ventricular systolic function. Left ventricular ejection fraction is 55% by visual estimate. Normal regional wall motion. Mild concentric left ventricular hypertrophy. Stage
II diastolic dysfunction suggestive of abnormal relaxation and increased filling pressures. Moderately dilated right ventricle with moderately reduced systolic function. Dilated right atrium. Mild to moderate tricuspid regurgitation. Estimated
pulmonary artery pressure of 70 mmHg assuming a right atrial pressure of 15 mmHg. Compared to prior study dated 01/18/22 which was directly reviewed, LV function was previously hyperdynamic, otherwise no significant change.
.
[2024-12-12 12:24] LABS: % Basophils 0.3 % (0-2); % Immature Granulocytes 0.4 % (0-0.5); % Lymphocytes 4.2 % (20.5-51.1); % Neutrophils 90.1 % (42.2-75.2); Absolute Lymphocytes 0.5 10^3/uL (1.2-3.4); Absolute Monocytes 0.5 10^3/uL (0.1-0.6); Absolute Neutrophils 9.7 10^3/uL (1.4-6.5); Nucleated Red Blood Cells % 0.4 % (-)
[2024-12-12] MEDS: DUONEB INH (12:52)
--- NOTE | 2024-12-12 13:04 | PTCARENOTE ---
Received patient from ED on stretcher. Assist x4 to pullover to bed. Awake and alert with garbled speech. Unable to communicate full sentences . Pulse ox 96% on 6l o2. Pulmonology to room to access patient. Order to keep sp02 > 88%, BIPAP at
HS and while sleeping. INC of urine on arrival. NPO except for sips. IV antibiotics infusing as ordered. Oriented patient to room. BA on patient is a fall risk.
--- NOTE | 2024-12-12 14:01 | PHA.VAN.IN ---
Assessment
- Assessment
Renal Function: Appears elevated from baseline (1.4)
Maximum Temperature: 100.5
Concomitant Antimicrobials: Azithromycin, Cefepime
Plan
- Plan
Initial / Loading Dose: Vanco 2000mg loading dose pending administration 12/12/24
Maintenance Regimen: Dose by level
Monitoring: R level 12/12/24 0600
Pharmacokinetics Vancomycin I
- -
Patient Age: 74
Patient Sex: Male
Vancomycin Day #: 1
Indication: Pulmonary/Respiratory
Requesting Provider: DANIELLE
Pertinent Antimicrobial Allergies:
No known drug allergies
Height / Weight:
Height 6 ft 1 in
Actual Weight 100.834 kg
Pertinent Past Medical History: Prostate cancer
- Vital Signs / Lab Results
Temp Pulse Resp BP Pulse Ox
98.6 F 91 23 100/49 94
12/12/24 12:58 12/12/24 13:00 12/12/24 13:00 12/12/24 13:00 12/12/24 12:45
Lab Results - Hematology
12/12/24
09:39
WBC 10.7
Lab Results - Chemistry
12/12/24
09:39
BUN 49 H
Creatinine 1.4 H
Estimated Creat Clear 55
Albumin 3.2 L
12/12/24 12/12/24
09:39 12:45
Lactic Acid 1.7 Cancelled
Microbiology Results
12/12/24 09:07 Influenza Types A & B (NICOLE) - Final
Nasal Swab Negative for Influenza A & B, NAAT
Negative results must be combined with clinical observations
and patient history.
Nucleic Acid Amplification test (NAAT)performed on the
[employer] platform.
[2024-12-12] MEDS: AFRIN NASAL SPRAY NASAL ×3 (14:10→20:11)
[2024-12-12] MEDS: VANCOCIN 540 MG IV (14:10)
[2024-12-12] MEDS: FLUSH (NSS) 1 FLUSH IV ×2 (14:11→15:11)
--- NOTE | 2024-12-12 14:16 | PTCARENOTE ---
Patient has 40 beat run of v-tach. Patient sleeping at the time. VS stable. Dr. Moreno made aware. Orders obtained. Will continue to monitor frequently.
--- NOTE | 2024-12-12 14:59 | PTCARENOTE ---
[facility] called for additional info, nurse [facility] states pt is non compliant with his care fluid restriction and Meds. Pt is AAAOx3 at [facility] but has been deteriorating. Pt no longer ambulates bed bound per [facility]. 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
[2024-12-12] MEDS: LOPRESSOR 5 MG IV (15:09)
[2024-12-12] MEDS: DUONEB 3 ML INH ×2 (15:11→19:15)
--- NOTE | 2024-12-12 16:16 | WOUNDNOTE ---
LEFT LATERAL FOOT
--- NOTE | 2024-12-12 16:22 | WOUNDNOTE ---
LEFT EYELID/BROW
[2024-12-12] MEDS: STERILE WATER FOR INJECTION 10 ML IV (17:57)
[2024-12-12] MEDS: MAXIPIME 1000 MG IV (17:57)
[2024-12-12 18:11] LABS: Potassium 3.7 mmol/L (3.5-5.1)
[2024-12-12] MEDS: LR 1000 IV (18:31)
--- NOTE | 2024-12-12 18:41 | PTCARENOTE ---
Patient's BP's 75-82/50's. Dr. Moreno notified. Order obtained for NSS bolus 500 mls and LR 2 60mls/hr. BP's better 118/56,129/71. Dr. Moreno notified with lab results and follow up with BP's after bolus. Patient has been on BIPAP and sleeping
all afternoon 15/5 with 15L, Sp02 mid to upper 90's. Wound RN to see patient. SR with PVC's on monitor.
--- NOTE | 2024-12-12 19:01 | W.PN.UPDATE ---
Update Note
Progress Note Update
Troponin up to 1.8. Will start IV heparin gtt; give rectal aspirin
continue to trend Troponin
TTE tomorrow
Cardiology consulted
[2024-12-12] MEDS: PULMICORT 0.5 MG INH (19:15)
[2024-12-12] MEDS: ASPIRIN 300 MG RECTAL (20:07)
[2024-12-12] MEDS: LIPITOR PO (20:11)
[2024-12-12] MEDS: MUCINEX PO (20:11)
--- NOTE | 2024-12-12 20:20 | PTCARENOTE ---
Received pt from dayshift RN. Pt minimally responsive. Moves extremities in response to pain. Pupils dilated, but equal and reactive. HR 60s with periods of tachycardia (130-150s). Per dayshift RN, pt did have a 40beat run of vtach earlier in the
day. Most recent trop 1.8, orders in for rectal aspirin, IV heparin bolus and IV heparin gtt. Unable to draw baseline PTT. Multiple attempts made by several RNs. IV team called to draw labs. Rectal aspirin given. Awaiting PTT results before
administering IV heparin. RAP ARTIST notified. Care ongoing.
[2024-12-12 20:39] LABS: Hematocrit 32.4 % (39.0-52.0); Hemoglobin 10.6 g/dL (13.0-18.0); Mean Corp Hgb Conc. 32.7 g/dL (33.0-37.0); Mean Corpuscular Volume 91.8 fL (80.0-94.0); Platelet Count 177 10^3/uL (130-400); Red Blood Cell Count 3.53 10^6/uL (4.70-6.10); Red Cell Dist. Width 14.6 % (11.5-14.5); White Blood Cell Count 11.3 10^3/uL (4.8-10.8)
[2024-12-12 20:51] LABS: APTT 30.9 Sec (23.4-35.0)
[2024-12-12] MEDS: HEPARIN 25000 UNITS/250 ML IV (21:05)
[2024-12-12] MEDS: HEPARIN 4000 UNITS IV (21:05)
--- NOTE | 2024-12-12 23:53 | PTCARENOTE ---
Heparin bolus given and heparin gtt initiated at 21:05 after baseline PTT resulted. Troponin down to 1.7. [employer] LEAD WORKER notified. PTT and repeat trop to be drawn with am labs.
[2024-12-13] VITALS (24 sets, daily range): BP systolic 93–140; BP diastolic 49–86; PULSE 2–107; BMI 29.2
[2024-12-13] MEDS: LOPRESSOR 2.5 MG IV ×4 (01:15→17:34)
[2024-12-13] MEDS: MAXIPIME 1000 MG IV ×3 (01:15→20:55)
[2024-12-13] MEDS: STERILE WATER FOR INJECTION 10 ML IV ×3 (01:16→20:54)
[2024-12-13 04:18] LABS: APTT 69.6 Sec (23.4-35.0)
[2024-12-13 04:32] LABS: Vancomycin Random 14.4 ug/ml
[2024-12-13 04:39] LABS: Blood Urea Nitrogen 43 mg/dl (9-20); Calcium 9.1 mg/dl (8.4-10.2); Chloride 95 mmol/L (98-107); Estimated Creatinine Clearance 90 ml/min; Glucose 127 mg/dl (70-99); Hematocrit 32.6 % (39.0-52.0); Hemoglobin 10.7 g/dL (13.0-18.0); Magnesium 2.1 mg/dl (1.6-2.3); Mean Corp Hgb Conc. 32.8 g/dL (33.0-37.0); Mean Corpuscular Hgb 29.1 pg (27.0-31.0); Mean Corpuscular Volume 88.6 fL (80.0-94.0); Mean Platelet Volume 10.1 fL (7.4-10.4); Platelet Count 200 10^3/uL (130-400); Potassium 3.5 mmol/L (3.5-5.1); Red Blood Cell Count 3.68 10^6/uL (4.70-6.10); Red Cell Dist. Width 14.6 % (11.5-14.5); Sodium 145 mmol/L (135-145); White Blood Cell Count 12.4 10^3/uL (4.8-10.8); eGFR > 60.00
[2024-12-13 04:49] LABS: Carbon Dioxide 44 mmol/L (22-30)
--- NOTE | 2024-12-13 07:14 | W.PN.PUL3 ---
Today's Communication / Plan
-
Okay to take off BiPAP, transition to high flow
Compensated hypercapnia noted
Decrease steroids, doubt COPD component. No wheezing presently
Remains on heparin drip
Follow electrolytes, replete potassium, I ordered
Await cardiology, echocardiogram
Patient with significant cardiopulmonary disease
Remains high risk situation
Assessment
-
Patient is a 74 year old M with previous history of severe COPD/emphysema, chronic hypoxemia, obesity, suspected RICARDO/OHS (refused testing), noncompliance presenting to ER with change in mental status, hypoxemia per. Presents from [place],
usually on 4 L. He was placed on noninvasive mechanical ventilation and high flow oxygen in the emergency room. I was consulted on 12/12/2024 for evaluation.
Acute on chronic hypoxic and hypercarbic respiratory failure-change in mental status-requiring noninvasive mechanical ventilation/high flow oxygen
VBG 12/12/2024: 7.51/71/110-likely stable as prior ABG 11/15/2024 was 7.45/71/90
Chest x-ray 12/12/2024: Bibasilar opacities left greater than right.
Possible pneumonia, cannot rule out aspiration
Low-grade fever/no leukocytosis
Negative influenza/negative COVID 12/12/2024
Acute HF exacerbation, proBNP 2490
Medical noncompliance
Advanced COPD with chronic hypercapnic and hypoxemic respiratory failure-possibly some degree of acute exacerbation.
Not compliant with oxygen therapy
Declined noninvasive mechanical ventilator in the outpatient setting
Obesity hypoventilation syndrome suspected-chronic hypercapnic respiratory failure appears stable based on VBG from 12/12/2024 per
Conditions present RN PERITONEAL DIALYSIS:
Coronary disease with history of LAD stent and elevated filling pressures per catheterization December 2021
Noncompliance, refusal of treatment
Severe COPD/emphysema, GOLD IV
FEV1 30%
Follows with Dr. Marte in OP last seen 06/2024 - Saw Delmy MARADIAGA.
Regimen: Pulmicort twice a day/DuoNebs 3-4 times a day/albuterol HFA as needed.
Decline pulmonary embolization in the past
Decline low-dose radiation screening-has not followed through. Most recent CT chest in the hospital 08/15/2024: No lung nodules.
Chronic hypoxemia, on 2-4L
Severe pulm hypertension, PA pressure 70-likely due to chronic hypercapnic respiratory failure/advanced COPD
Echocardiogram 08/09/2024: LVEF 55%. Mild LVH. Dilated right ventricular with low normal RV systolic function. Estimated pulmonary pressure 65-70 mmHg.
Poor compliant with oxygen.
Suspect RICARDO/OHS, never had sleep study/declined testing
He declined therapy 06/2024
Prostate cancer
Incomplete right bundle branch block
Obesity
Prot mirabilis UTI
History of lower extremity cellulitis
Former smoker: Quit at least 2-1/2 years ago. 40+ pack year history
Plan/recommendations:
Patient appears to be comfortable at this time, remained on BiPAP through the night
Elevated troponin noted, elevated proBNP
Heparin therapy has been started
Cardiology consulted, echocardiogram ordered
Patient presently denies chest pain
Doppler negative for DVT bilaterally
Chronic compensated hypercapnia per ABG
CXR 12/12/2024 with bilateral interstitial changes, right pleural effusion/atelectasis
CT chest 08/15/2024 with large pericardial fat pad, emphysema, pleural calcifications and mild interstitial changes
Echocardiogram 08/09/2024 technically difficult, PA pressure 70, dilated RV with low normal function
Moving forward
Patient with tenuous cardiopulmonary status
Prior echocardiogram concerning with severe pulm hypertension, RV changes
Current chest x-ray
With right pleural parenchymal process, mild interstitial changes, heart failure versus pneumonitis
Continue with broad-spectrum antibiotics, currently on vancomycin, azithromycin, cefepime
Follow cultures, leukocytosis
Maintain on BiPAP 15/5, saturation 92% on 14 L
Repeat x-ray 12/14
Compensated hypercapnia noted
When off BiPAP, would place on high flow
Continue nebulizer therapy Pulmicort
DuoNebs mlauxd-oon-ageup 4 times daily
Did receive Solu-Medrol in the ED-maintain 60 mg daily. No wheezing on exam at this time
Decrease prednisone to 40, consider rapid taper given possibly cardiac process
Incentive spirometry when able
Acapella device when able
Avoid sedatives
Creatinine improved to 0.8
Increased proBNP-similar to prior.
Difficult to assess volume status
Has been on oral Lasix in the outpatient setting currently hypokalemic.
Holding aggressive IV diuresis for now until potassium is repleted and then reassess
Echocardiogram, cardiology evaluation pending
Replete potassium
Patient has significant pulmonary hypertension with RV dysfunction-likely to underlying pulmonary disease, poor compliance with oxygen therapy, untreated obesity hypoventilation syndrome and diastolic heart failure
Continue oxygen plantation to maintain pulse ox above 90%
Holding diuresis-appears dry on exam.
DVT prophylaxis: Presently on heparin drip for elevated troponin
GI prophylaxis: Not indicated
Poor prognosis. Respiratory status is tenuous.
Patient is full code.
As above he has decline addressed CODE STATUS in the past
Prior admission conversations:
He understands high risk of readmission and without noninvasive mechanical ventilation.
Multiple extensive discussion with him in the outpatient setting and during this admission.
Patient has repeatedly stated he has no intention to continue BPAP as outpatient: we have discussed hospice but he does not believe he is ill
He does not feel he has any issue with his lungs, he is in 'perfect health.'
He does not wish to change his code status and does not have family/medical POA designation (he says he has no children or siblings, despite sister is contact). He feels he does not need anyone.
He is not ready for hospice despite his level of noncompliance.
Prior conversations:
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
Noted full code status
Will benefit from C discussion with family, given his multiple comorbidities and persistent medical noncompliance. He may be at increased risk for prolonged mechanical ventilation and associated complications. In my humble opinion he should be
DNR/DNI.
This was discussed with him and care team on prior visits
unfortunately he has very poor insight
Not much else to offer.
Follow up with Dr. Marte after discharge known to have poor compliance with therapy, unable to afford medications, poor compliant with oxygen, refusing BiPAP, last time seen in June 2024 with [facility]UFACTURING INSPECTOR.
Diagnostic Data
CT chest 08/15/2024-no evidence for pulm embolism, moderate to advanced emphysematous lung changes and in the posterior right lower lobe bronchial wall thickening suggesting secretions or mucous plugging.
CXR 08/08/24- Cardiomegaly. Radiographic findings felt to most likely represent pulmonary edema.
CXR 03-31-23 (portable) c/w 01-16-22 (PA/lat): Old films with no infiltrates. Current film slightly lordotic/rotated. R basilar linear atelectasis, mild pulm vasc congestion
PET CT 01-17-23 IMPRESSION: [Marked uptake of activity in the prostate gland suspicious for malignancy.] Extension of malignancy to involve the seminal vesicles cannot be excluded on the basis of this study. Coronary artery calcifications and
sigmoid diverticulosis. Please note, evaluation may be limited with possible false negative results in light of the large volume of activity seen in the prostate gland.
Bilateral Doppler 12/12/2024: Negative for DVT
R leg doppler 03-31-23: negative
TTE 04-01-23 CONCLUSIONS: Normal left ventricular chamber size. Normal left ventricular systolic function. Left ventricular ejection fraction is 55% by visual estimate. Normal regional wall motion. Mild concentric left ventricular hypertrophy. Stage
II diastolic dysfunction suggestive of abnormal relaxation and increased filling pressures. Moderately dilated right ventricle with moderately reduced systolic function. Dilated right atrium. Mild to moderate tricuspid regurgitation. Estimated
pulmonary artery pressure of 70 mmHg assuming a right atrial pressure of 15 mmHg. Compared to prior study dated 01/18/22 which was directly reviewed, LV function was previously hyperdynamic, otherwise no significant change.
Subjective Data
-
Date of Service:
Date of Service: December 13, 2024
Subjective:
Patient is without complaints. He denies chest pain, chest tightness, cough. He has been maintained on CPAP through the night. Presently lying flat
Objective Data
Data Reviewed
Vital Signs / I&O / Oxygen:
Vital Signs
Temp Pulse Resp BP Pulse Ox
98 F 77 24 108/71 94
12/13/24 04:05 12/13/24 06:03 12/13/24 05:00 12/13/24 06:03 12/13/24 05:00
Intake and Output
12/12/24 12/13/24 12/14/24
06:59 06:59 06:59
Intake Total 1130 / 1130
Balance 1130 / 1130
SaO2 94
Nasal Cannula flow liters per 6
minute
Physical Exam
General: Comfortable and Other (BiPAP in place)
HEENT: Normocephalic and Anicteric
Cardiovascular: S1-S2, Regular Rhythm, Murmur (n), Rub (n) and Peripheral Edema (Chronic venous stasis changes, 1-2+)
Respiratory: Wheeze (n), Crackles (n), Rhonchi (n), Non-Labored Respirations, Other (Decreased breath sounds) and Other (Conversant through the BiPAP)
GI: Soft, Non Distended (Obese) and Non Tender
Neurology: Awake, Alert and No Motor Deficits (Moves all extremities)
Skin: Other (Mild lower extremity erythema, no warmth)
Labs/Micro/Reports
Lab Data
12/13/24 03:56
12/13/24 03:56
Laboratory Results
12/12/24 12/12/24 12/13/24
09:39 20:31 03:56
PT 15.5 H
INR 1.18
APTT 29.0 30.9 69.6 H
Microbiology
12/12/24 09:07 Nasal Swab Influenza Types A & B (NICOLE) - Final
Negative for Influenza A & B, NAAT
Negative results must be combined with clinical observations
and patient history.
Nucleic Acid Amplification test (NAAT)performed on the
[employer] platform.
[2024-12-13 07:37] LABS: % Basophils 0.5 % (0-2); % Immature Granulocytes 0.4 % (0-0.5); % Lymphocytes 1.5 % (20.5-51.1); % Monocytes 1.6 % (1.7-9.3); Absolute Basophils 0.1 10^3/uL (0-0.2); Absolute Immature Granulocytes 0.1 10^3/uL (0-0.05); Absolute Lymphocytes 0.2 10^3/uL (1.2-3.4); Absolute Monocytes 0.2 10^3/uL (0.1-0.6); Absolute Neutrophils 11.9 10^3/uL (1.4-6.5); Nucleated Red Blood Cells % 0.3 % (-)
--- NOTE | 2024-12-13 07:46 | W.PN.HOSP.TC ---
Today's Communication/Plan
-
IV Heparin gtt
IV Cef/Vanc/Azithro
TTE today
transition to high flow
ST consult for diet
Appreciate Pulmonary and Cardiology
Assessment / Plan
Assessment / Plan
Mr. Adam Styles is a 74 yo m an with hx COPD, chronic hypoxic respiratory failure on 4L O2, HFpEF, CAD (NSTEMI s/p PCI 2021), HFpEF, essential HTN, HLD, prostate CA, former smoker presents to the ER with change in mentation. Patient was at
[facility], noted to have somnolence, low oxygen and low blood pressure.
EKG with non-specific ST and T wave changes; sinus rhtyhm with PAC's
MAR: IV Vanc/Cefepime; 500cc IVF, 40mEq IV K
Sepsis 2/2 Bilateral Pneumonia
Hypotension responsive to IVF
Acute on Chronic Hypoxic Respiratory Failure
Chronic Hypercapnic Respiratory Failure
Respiratory acidosis with compensatory metabolic alkalosis
-flu and covid negative
-ABG shows compensated respiratory acidosis
-placed on BiPAP in the ER, left on overnight, can transition to high flow
-Pulmonary consult appreciated
-continue IV Vanc/Cefepime/Azithro
-MRSA screen, if negative stop Vanc
-LIBRARY HISTORIAN Budesonide
-standing nebulizers and PRN
-continue Mucinex
-steroid taper per pulm - outpatient records showed prednisone 60mg PO QD
-confirmed with patient his FULL CODE status - further discussions to have this admission given his severe COPD
Heart Failure preserved EF
-TTE 08/09/24 with EF 55%, mild concentric LVH
-on Lasix 60mg PO BID at home
-volume status difficult as presented hypotensive and responsive to fluids; he has CLEMENTINE but with significant LE swelling. given body habitus cannot assess JVP
-s/p 500cc bolus x 2 with improvement in BP; holding lasix and gentle IVF overnight
-repeat TTE
Hypokalemia
-receiving 40mEq now; repeat this afternoon and replete further if needed
-add on Magnesium
Nonischemic myocardial Troponin Elevation
-in setting of hypoxia and sepsis
-no chest pain
-Trop peaked at 1.8. IV Heparin gtt initiated and Cardiology consulted
-asa daily/ rectal if cannot take PO
-repeat TTE today
Depression
-LIBRARY HISTORIAN Zoloft
Acute Kidney Injury
-resolved with IVF
Essential HTN
-hold LIBRARY HISTORIAN Amlodipine
-LIBRARY HISTORIAN Metoprolol with hold parameters
CAD with hx PCI
-LIBRARY HISTORIAN asa/statin/Metoprolol
DVT PPx Hep gtt
FULL CODE - on patient's forms from [place], confirmed on admission
Total Critical Care Time 50 minutes. I was immediately available to the patient and staff. I personally examined, reviewed labs, diagnostic images/reports, interpretations, treatment plans, discussed patient care with other providers and family
or caregivers (if patient is unable to make decisions), entered orders as appropriate and documented the medical record.
Anticipated Discharge: > 48 hours
Subjective/Interval History
-
Date of Service: December 13, 2024
feeling better this morning
more conversant
Objective Data
-
Labs:
Laboratory Results
12/12/24 12/13/24 12/13/24
20:31 03:56 10:30
WBC 11.3 H 12.4 H
Hgb 10.6 L 10.7 L
Hct 32.4 L 32.6 L
Plt Count 177 200
APTT 30.9 69.6 H Pending
Sodium 145
Potassium 3.5
Chloride 95 L
Carbon Dioxide 44 H
BUN 43 H
Creatinine 0.8
Glucose 127 H
Calcium 9.1
Vital Signs:
Vital Signs
Temp Pulse Resp BP Pulse Ox
98 F 77 24 108/71 94
12/13/24 04:05 12/13/24 06:03 12/13/24 05:00 12/13/24 06:03 12/13/24 05:00
I&O
12/12/24 12/13/24 12/14/24
06:59 06:59 06:59
Intake Total 1130 / 1130
Balance 1130 / 1130
Review of Systems
-
History Source: Patient
All other systems: Reviewed and negative
Physical Exam
-
General: No Apparent Distress and Other (on BiPAP, conversant, appears chronically ill )
HEENT: Normocephalic, Atraumatic and Moist Mucous Membranes
Respiratory: Negative Wheezes
Cardiac: Irregular Rhythm
GI: Soft, Nontender and Nondistended
Musculoskeletal: No Clubbing, No Cyanosis, Edema, Right Lower Extrem and Edema, Left Lower Extrem
Neuro: Awake, Alert, Oriented, AO x 3 and Other (tangential)
Psych: Calm
Data Reviewed
-
Diagnostic Radiology: Report Reviewed by me
Labs: Labs Reviewed by me
[2024-12-13] MEDS: DUONEB 3 ML INH ×4 (07:48→19:49)
[2024-12-13] MEDS: PULMICORT 0.5 MG INH ×2 (07:48→19:49)
--- NOTE | 2024-12-13 07:48 | CON.CAR ---
Addendum entered and electronically signed by Milton Warren MD 12/13/24 14:26:
I saw and examined the patient.
The Mortgage Processing Clerk's note was reviewed and I agree with the note.
Comment: Briefly, 74-year-old man past medical history of heart failure with preserved ejection fraction and multivessel CAD with prior PCI as well as severe COPD on home O2 who presents with altered mental status and is being treated for possible
pneumonia/COPD exacerbation. Cardiology is consulted for elevated troponin.
Rise and fall of troponin 0.46�1.80�1.71
Patient appeared comfortable at the time my evaluation and was not reporting any chest discomfort
Started on heparin drip for possible ACS would continue x 48 hours
Continue aspirin, statin and beta-yaz
No plans for inpatient ischemic evaluation, but can be revisited as an outpatient
For now would continue medical therapy and treatment of underlying pneumonia
Rest per Gay May
Original Note:
Consultation
Consultation Request
Date/Time Consultation Performed: 12/13/24
Requesting Provider: Dr. Moreno
Performing Provider: Gay May PA-C for Dr. Warren
Reason for Consultation: elevated troponin
Medical History
-
Chief Complaint: change in mental status
History of Present Illness:
Patient is a 74 yo M well known to our service who presented to ER with hypotension, hypoxia, and decreased responsiveness at [facility]. History from patient limited as wearing BiPAP at this time. He was previously admitted to 07/2024 for
similar symptoms and was recommended bipap for DC, however patient is intermittently compliant with this. CXR with evidence of PNA. Covid/flu negative. Cardiology consulted as with elevated troponin, peak 1.8. Patient denies CP. He has history of ID
and MV CAD s/p LAD PCI 2021 with residual 50-60% RCA lesion. EKG SR with PACs.
PMH:
Chronic HFpEF
CAD with ID s/p 3 mm Synergy BENNY to mid to mid-distal LAD and residual 50-60% RCA lesion by cath 12/2021
Severe COPD
Chronic hypoxic respiratory failure on 3-4 L NC continuously
Hypertension
Hyperlipidemia
Obesity
Suspected obstructive sleep apnea
Prostate cancer
History of hematuria
Anxiety
Former smoker
Possible bipolar disorder
Past Medical History
Past Medical History: Other (in HPI)
Past Surgical History: Tonsilectomy and Other (BENNY x 2 mid-distal LAD 01/21/22, colonoscopy)
Social History
Tobacco: Former Smoker
Alcohol: None
Drug: None
Personal: Single
Living: [facility] ([facility])
Family History
Family History: Cancer, Hypertension and Other (dementia)
Allergies / Home Medications
Allergy/AdvReac Type Severity Reaction Status Date / Time
No Known Allergies Allergy Verified 11/30/24 19:19
�Medication �Instructions �Recorded �Confirmed �Type
aspirin 81 mg chewable tablet 81 mg PO DAILY Heart 04/01/22 12/12/24 Rx
disease/condition 30 days #30 tabs
metoprolol tartrate 25 mg tablet 25 mg PO BID Heart 04/01/22 12/12/24 Rx
disease/condition 30 days #60 tabs
bicalutamide 50 mg tablet 50 mg PO DAILY Cancer 03/31/23 12/12/24 History
budesonide 0.5 mg/2 mL suspension 0.5 mg (2 mL) inhalation R BID #60 04/15/23 12/12/24 Rx
for nebulization mL
acetaminophen 325 mg tablet 650 mg PO Q4HPRN PRN mild 01/31/24 12/12/24 History
pain/fever
bisacodyl 10 mg rectal suppository 10 mg OK DAILYPRN PRN if MOM is 01/31/24 12/12/24 History
ineffective after 24 hrs
magnesium hydroxide 400 mg/5 mL 30 ml PO DAILYPRN PRN constipation 01/31/24 12/12/24 History
oral suspension (Milk of Magnesia)
sertraline 50 mg tablet 100 mg PO DAILY Mental 01/31/24 12/12/24 History
Health/Anxiety
atorvastatin 20 mg tablet 20 mg PO HS High Cholesterol 08/08/24 12/12/24 History
ipratropium 0.5 mg-albuterol 3 mg 3 ml inhalation R BID 08/09/24 12/12/24 History
(2.5 mg base)/3 mL nebulization Lung/Breathing Issues
soln
furosemide 20 mg tablet 60 mg PO BID Fluid 11/15/24 12/12/24 History
Retention/Swelling
guaifenesin 1,200 mg tablet, 1,200 mg PO BID Congestion 11/15/24 12/12/24 History
extended release 12 hr (Mucinex)
potassium chloride 10 mEq 20 meq PO DAILY Electrolyte 11/15/24 12/12/24 History
tablet,extended release Repletion
prednisone 20 mg tablet 60 mg PO DAILY Anti-Inflammatory 11/15/24 12/12/24 History
sodium phosphates 19 gram-7 118 ml OK DAILYPRN PRN if dulcolax 11/15/24 12/12/24 History
gram/118 mL enema (Fleet Enema) is ineffective after 24 hrs
amlodipine 5 mg tablet 5 mg PO DAILY Blood Pressure 12/12/24 12/12/24 History
oxymetazoline 0.05 % nasal spray 2 spray intranasal QID Allergies 12/12/24 12/12/24 History
Review of Systems
-
Unable to obtain full review of systems at this time due to: Other (bipap)
History Source: Patient
All other systems: Negative unless noted
Physical Exam
Vital Signs
Temp Pulse Resp BP Pulse Ox
98 F 77 24 108/71 94
12/13/24 04:05 12/13/24 06:03 12/13/24 05:00 12/13/24 06:03 12/13/24 05:00
Lab Results
12/13/24 03:56
12/13/24 03:56
Troponin I 1.010 ng/ml H* D 12/13/24 03:56
Kbq-A-T[place]mmnttaq Pept 2490 pg/ml 12/12/24 09:39
Physical Exam
General: Other (chronically ill appearing. on BiPAP. confused at times)
HEENT: Normocephalic, Anicteric and Moist Mucous Membranes
Respiratory: Other (decreased BS B/L)
Cardiac: S1/S2, Regular Rhythm and Other (ectopy)
GI: Soft, Non Tender, Non Distended and Normal Bowel Sounds
Musculoskeletal: No Clubbing, No Cyanosis and Edema (3+ pitting edema of B/L LE)
Skin: Warm and Dry
Neuro: Awake, Alert and Oriented (to self. )
Impression / Plan
-
Primary Datastage Developer: Dr. Kelley
Assessment:
Presentation with change in mental status
Sepsis
B/L PNA
Acute on chronic hypoxic respiratory failure
Chronic Hypercapnic Respiratory Failure
Elevated troponin, suspected nonischemic myocardial injury
Hypokalemia
CLEMENTINE
Chronic HFpEF
CAD with ID s/p 3 mm Synergy BENNY to mid to mid-distal LAD and residual 50-60% RCA lesion by cath 12/2021
Severe COPD
Chronic hypoxic respiratory failure on 3-4 L NC continuously
Hypertension
Hyperlipidemia
Obesity
Suspected obstructive sleep apnea
Prostate cancer
History of hematuria
Anxiety
Former smoker
Possible bipolar disorder
Echo 04/09/24: EF 68%, mild LVH, severe PHTN with PAP 67 mmHg, compared to echo 03/2023 no significant change
Echo 08/09/24: EF 55%, TDS, normal LV function, mild LVH, dilated RV with low normal RV sys pressure, mild TR with PASP 65-70 mmHg
Plan:
-Patient presented with change in mental status as well as hypoxia and hypotension. noted to have evidence of PNA by CXR. required bipap, being weaned this AM
-cardiology consulted as trop peaked at 1.8 last evening, now trending down. no CP. has history of CAD with prior LAD stent with residual RCA disease in 2021. EKG SR with PACs and NSSTS. treating as nonischemic myocardial injury in setting of
hypoxia and PNA.
-continue IV heparin, will plan to stop in AM (~48 hours). continue asa
-continue lipitor
-in SR with PACs and brief runs of atach on review of tele overnight. continue IV lopressor. hopefully can transition back to po after speech evaluation
-proBNP in setting of acute CHF last admission was 80393. proBNP this admission 2490. weight also lower than 07/2024 admission. will hold off on diuretics for now. does have B/L LE edema, however suspect degree of venous stasis/lymphedema rather
than acute CHF
-repeat echo, last from 2023 as above
-replete K
-treatment of PNA/COPD per primary service/pulm
-high risk situation. full code
-d/w hospitalist
Data Reviewed
-
EKG: Tracing Personally Visualized and interpreted
Radiology: Report Reviewed by me
Medical Tests (Nuc Med, Echo etc): Report Reviewed by me
Labs: Labs Reviewed by me
Old Records: Reviewed
[2024-12-13] MEDS: KCL ELIXIR 40 MEQ PO (08:31)
[2024-12-13] MEDS: CASODEX 50 MG PO (08:32)
[2024-12-13] MEDS: AFRIN NASAL SPRAY 2 SPRAYS NASAL (08:32)
[2024-12-13] MEDS: ZOLOFT 100 MG PO (08:33)
[2024-12-13] MEDS: MUCINEX 1200 MG PO (08:33)
[2024-12-13] MEDS: LOW STRENGTH ASPIRIN 81 MG PO (08:33)
[2024-12-13] MEDS: DELTASONE 50 MG PO (08:34)
--- NOTE | 2024-12-13 08:44 | PHA.VAN.FU ---
Vancomycin Assessment / Plan
- Assessment
Renal Function: SCR Decreasing (SCr 0.8, CrCl 90, BUN 43)
WBC's are: Trending Up (11.3->12.4)
In the past 24 hrs, patient has been: Febrile (100.5)
Concomitant Antimicrobials: Cefepime, Azithromycin
- Assessment - Therapeutic Drug Monitoring
Random Level: 14.4 ~14hrs after 2G loading dose given 12/12/24
- Dosing Plan
Dosing by Level: Re-dose today
Dosing Comments: Vanco 1500mg x1
- Monitoring Plan
Random Level: 12/14/24 0600
- Follow Up
Pharmacy will continue to follow.
Vancomycin Follow UP
- -
Patient Age: 74
Patient Sex: Male
Vancomycin Day #: 2
Indication: Pulmonary/Respiratory
Requesting Provider: DANIELLE
Pertinent Antimicrobial Allergies:
No known drug allergies
Height / Weight:
Height 6 ft 1 in
Actual Weight 100.3 kg
Pertinent Past Medical History: Prostate cancer
- Vital Signs / Lab Results
Temp Pulse Resp BP Pulse Ox
98 F 83 21 93/64 97
12/13/24 04:05 12/13/24 08:00 12/13/24 08:00 12/13/24 08:00 12/13/24 08:00
Lab Results - Hematology
12/12/24 12/12/24 12/13/24
09:39 20:31 03:56
WBC 10.7 11.3 H 12.4 H
Lab Results - Chemistry
12/12/24 12/13/24
09:39 03:56
BUN 49 H 43 H
Creatinine 1.4 H 0.8
Estimated Creat Clear 55 90
Albumin 3.2 L
12/12/24 12/12/24
09:39 12:45
Lactic Acid 1.7 Cancelled
Microbiology Results
12/12/24 09:07 Influenza Types A & B (NICOLE) - Final
Nasal Swab Negative for Influenza A & B, NAAT
Negative results must be combined with clinical observations
and patient history.
Nucleic Acid Amplification test (NAAT)performed on the
[employer] platform.
Therapeutic Drug Monitoring
Random Vancomycin 14.4 ug/ml 12/13/24 03:56
--- NOTE | 2024-12-13 09:09 | WOUNDNOTE ---
[facility] RN NOTE: Reviewed chart and met with patient. Skin assessed with assistance from RNLynne. Patient with bilateral stage 2 ischial wounds. Please see worklist for measurements and details of wounds. Patient also with stage 1 PI to bilateral
heels. MASD to groin/scrotum. Urine incontinence managed with penile wrap. Will recommend Honey Gel to ischial wounds. No-sting barrier wipe and adhesive foam to bilateral heels. Heels off-loaded with pillows under calves. [facility] and turning [facility]. Patient has several comorbidities including COPD, chronic hypoxemia, non-compliance and obesity. Wounds may worsen and new wounds may develop even with optimal care. Will follow as needed.
[2024-12-13] MEDS: VANCOCIN 530 MG IV (10:38)
--- NOTE | 2024-12-13 11:21 | PTOTSP ---
Speech Therapy Assessment
Oral/pharyngeal swallow deemed within functional limits without overt signs of aspiration. However, risk of aspiration is somewhat elevated given O2 dependent COPD, bedridden status and acute illness.
Recommend
1. Regular solids and thin liquids. Avoid overly dry/dense solids.
2. Meds as tolerated.
3. Aspiration and reflux precautions.
4. ST will follow to ensure diet tolerance and need for further instruction, or diet modifications.
[2024-12-13] MEDS: ZITHROMAX 500 MG PO (11:54)
[2024-12-13 12:45] LABS: APTT 59.1 Sec (23.4-35.0)
[2024-12-13] MEDS: AFRIN NASAL SPRAY NASAL ×3 (16:15→20:59)
[2024-12-13 16:43] LABS: Urine Albumin 4+ (Neg - Trace); Urine Bilirubin Negative (Negative); Urine Character Bloody (Clear); Urine Color Red; Urine Glucose Negative (Negative); Urine Ketone 2+ (Negative); Urine Leukocyte 3+ (Negative); Urine Nitrite Negative (Negative); Urine Occult Blood 4+ (Negative); Urine Urobilinogen Negative (Neg - 1+)
[2024-12-13 17:00] LABS: Urine Red Blood Cell >100 /HPF (0-2); Urine Squamous Cell 0-2 /LPF (Few)
--- NOTE | 2024-12-13 17:01 | CM ---
Patient from [facility] with Dx Sepsis 2/2 Bilateral Pneumonia. O2 12L midlfow. Receiving Heparin gtt, PO & IV Abx.
TTE today. Per nurse; confused.
Spoke with Juanita, s [facility];
the patient resides there in LTC on an HI bed hold.
He is A/O x2, supervised for ADLs, ambulatory without assistance.
The patient was not receiving PT/OT.
He has O2 and BiPAP in place.
He refuses care and showers.
The ph for report [phone], fax [phone].
Plan contact patient's sister Camila prior to d/c.
Plan return to [facility] when medically ready.
[2024-12-13 17:02] LABS: Urine Bacteria Few (Negative)
[2024-12-13 17:03] LABS: Urine Triple Phosphate Crystal Present
[2024-12-13 17:05] LABS: Urine Sodium 16 mmol/L (30-90)
--- NOTE | 2024-12-13 17:22 | PTCARENOTE ---
Condom cath placed today for urine specimen collection- now working and hematuria noted - specimen sent off- providers notified- Dr. Moreno, Dr. Graham. IV Heparin discontinued.
Drowsy all day- easily arousable. Garbled slurred confused speech continues- gets agitated when not understandable. Remains on midflow O2 15L sao2 95%- failed any weaning even to 13 sat drops quickly. SR on [id number] occasional short bursts
MAT/SVT- improved after IV Lopressor. BP 90-100s/50s-60.
Had 2 loose BM today. Appetite fair.
[2024-12-13] MEDS: MUCINEX PO (20:59)
[2024-12-13] MEDS: LIPITOR PO (20:59)
[2024-12-14] VITALS (28 sets, daily range): BP systolic 92–136; BP diastolic 53–101; PULSE 2–92; O2SAT 92
[2024-12-14] MEDS: LOPRESSOR IV (00:27)
--- NOTE | 2024-12-14 01:43 | PTCARENOTE ---
Received pt from dayshift RN. Pt minimally responsive. Per dayshift RN, pt has been off bipap all day. Pt does not answer questions, nonverbal at this time. Arouses slightly to tactile stimuli. Otherwise, assessment remains unchanged from previous
shift. Unable to take PO meds. IV meds given. Hep gtt orders dc due to hematuria. VSS. Care ongoing.
[2024-12-14] MEDS: STERILE WATER FOR INJECTION 10 ML IV ×4 (04:25→21:47)
[2024-12-14] MEDS: MAXIPIME 1000 MG IV ×4 (04:25→21:47)
[2024-12-14] MEDS: LOPRESSOR 2.5 MG IV (05:59)
[2024-12-14] MEDS: PULMICORT 0.5 MG INH ×2 (07:25→20:03)
[2024-12-14] MEDS: DUONEB 3 ML INH ×4 (07:25→20:03)
--- NOTE | 2024-12-14 07:40 | W.PN.HOSP.TC ---
Today's Communication/Plan
-
continue Cef/Azithro; stop Vanc
prednisone 50 (was reported to be on 60mg daily at [facility])
awaiting AM labs, will likely resume lasix post results
appreciate consultants
Assessment / Plan
Assessment / Plan
Mr. Adam Styles is a 74 yo m an with hx COPD, chronic hypoxic respiratory failure on 4L O2, HFpEF, CAD (NSTEMI s/p PCI 2021), HFpEF, essential HTN, HLD, prostate CA, former smoker presents to the ER with change in mentation. Patient was at
[place] [facility], noted to have somnolence, low oxygen and low blood pressure. He was admitted for sepsis and hypoxic respiratory failure 2/2 pneumonia.
EKG with non-specific ST and T wave changes; sinus rhtyhm with PAC's
TTE 12/13/24:
CONCLUSIONS
Normal left ventricular size and systolic function. No regional wall motion
abnormalities are seen. LV ejection fraction is 60-65% by visual assessment.
Mild concentric left ventricular hypertrophy.
Normal right ventricular size. Normal right ventricular systolic function.
Mild mitral regurgitation.
Mild tricuspid regurgitation. Estimated pulmonary artery pressure of 65 mmHg.
Assuming a right atrial pressure of 3 mmHg.
Compared to prior study dated 08/09/2024, there is no significant change
Sepsis 2/2 Bilateral Pneumonia
Hypotension responsive to IVF
Acute on Chronic Hypoxic Respiratory Failure
Chronic Hypercapnic Respiratory Failure
Respiratory acidosis with compensatory metabolic alkalosis
-flu and covid negative
-ABG shows compensated respiratory acidosis
-placed on BiPAP in the ER, transitioned to high flow/mid flow on 12/13
-Pulmonary consult appreciated
-continue IV Cefepime/Azithro
-MRSA screen negative, - will stop Vanc
-EXECUTIVE SERVICES ADMINISTRATOR Budesonide
-standing nebulizers and PRN
-continue Mucinex
-steroid taper per pulm - outpatient records showed prednisone 60mg PO QD
-confirmed with patient his FULL CODE status - further discussions to have this admission given his severe COPD
Heart Failure preserved EF
-TTE 08/09/24 with EF 55%, mild concentric LVH
-on Lasix 60mg PO BID at home
-volume status difficult as presented hypotensive and responsive to fluids; he has CLEMENTINE but with significant LE swelling. given body habitus cannot assess JVP
-s/p 500cc bolus x 2 with improvement in BP; s/p IVF (discontinued on 12/13)
-awaiting AM labs then likely resume oral lasix
Hypokalemia
-repleted
Nonischemic myocardial Troponin Elevation
-in setting of hypoxia and sepsis
-no chest pain
-Trop peaked at 1.8. IV Heparin gtt discontinued (nl TTE)
-asa daily/ rectal if cannot take PO
-repeat TTE results above
Depression
-EXECUTIVE SERVICES ADMINISTRATOR Zoloft
Acute Kidney Injury
-resolved with IVF
Essential HTN
-hold EXECUTIVE SERVICES ADMINISTRATOR Amlodipine
-EXECUTIVE SERVICES ADMINISTRATOR Metoprolol with hold parameters
CAD with hx PCI
-EXECUTIVE SERVICES ADMINISTRATOR asa/statin/Metoprolol
DVT PPx Hep gtt
FULL CODE - on patient's forms from [place], confirmed on admission
Total Critical Care Time 50 minutes. I was immediately available to the patient and staff. I personally examined, reviewed labs, diagnostic images/reports, interpretations, treatment plans, discussed patient care with other providers and family
or caregivers (if patient is unable to make decisions), entered orders as appropriate and documented the medical record.
Anticipated Discharge: > 48 hours
Subjective/Interval History
-
Date of Service: December 14, 2024
seen with BiPAP on
awoken from sleep
no new complaints
Objective Data
-
Labs:
Laboratory Results
12/13/24 12/14/24
19:00 06:00
WBC Pending
Hgb Pending
Hct Pending
Plt Count Pending
APTT Cancelled
Sodium Pending
Potassium Pending
Chloride Pending
Carbon Dioxide Pending
BUN Pending
Creatinine Pending
Glucose Pending
Calcium Pending
Vital Signs:
Vital Signs
Temp Pulse Resp BP Pulse Ox
97.6 F 77 20 125/74 96
12/14/24 07:08 12/14/24 07:28 12/14/24 07:28 12/14/24 06:00 12/14/24 07:28
I&O
12/13/24 12/14/24 12/15/24
06:59 06:59 06:59
Intake Total 1130 / 1130 1520 / 1520
Output Total 900 / 900
Balance 1130 / 1130 620 / 620
Review of Systems
-
History Source: Patient
All other systems: Reviewed and negative
Physical Exam
-
General: No Apparent Distress and Other (on BiPAP, conversant, appears chronically ill )
HEENT: Normocephalic, Atraumatic and Moist Mucous Membranes
Respiratory: Negative Wheezes
Cardiac: Irregular Rhythm
GI: Soft, Nontender and Nondistended
Musculoskeletal: No Clubbing, No Cyanosis, Edema, Right Lower Extrem and Edema, Left Lower Extrem
Neuro: Awake, Alert, Oriented, AO x 3 and Other (tangential)
Psych: Calm
Data Reviewed
-
Diagnostic Radiology: Report Reviewed by me
Labs: Labs Reviewed by me
--- NOTE | 2024-12-14 08:20 | W.PN.PUL3 ---
Today's Communication / Plan
-
Would decrease prednisone to 40 mg and maintain at this dose.
Not clear why he was on outpatient 60 mg? Based on this, will likely require slow taper
Continue nebulized therapy
Remains on antibiotics
CXR 12/15. May require CT chest
Remains on heparin therapy
Consider more aggressive diuresis?. Cardiology following
Overall respiratory status remains tenuous
Assessment
-
Patient is a 74 year old M with previous history of severe COPD/emphysema, chronic hypoxemia, obesity, suspected RICARDO/OHS (refused testing), noncompliance presenting to ER with change in mental status, hypoxemia per. Presents from [facility],
usually on 4 L. He was placed on noninvasive mechanical ventilation and high flow oxygen in the emergency room. I was consulted on 12/12/2024 for evaluation.
Acute on chronic hypoxic and hypercarbic respiratory failure-change in mental status-requiring noninvasive mechanical ventilation/high flow oxygen
VBG 12/12/2024: 7.51/71/110-likely stable as prior ABG 11/15/2024 was 7.45/71/90
Chest x-ray 12/12/2024: Bibasilar opacities left greater than right.
Possible pneumonia, cannot rule out aspiration
Low-grade fever/no leukocytosis
Negative influenza/negative COVID 12/12/2024
Acute HF exacerbation, proBNP 2490
Medical noncompliance
Advanced COPD with chronic hypercapnic and hypoxemic respiratory failure-possibly some degree of acute exacerbation.
Not compliant with oxygen therapy
Declined noninvasive mechanical ventilator in the outpatient setting
Obesity hypoventilation syndrome suspected-chronic hypercapnic respiratory failure appears stable based on VBG from 12/12/2024 per
Conditions present HEELER MACHINE:
Coronary disease with history of LAD stent and elevated filling pressures per catheterization December 2021
Noncompliance, refusal of treatment
Severe COPD/emphysema, GOLD IV
FEV1 30%
Follows with Dr. Marte in OP last seen 06/2024 - Saw Delmy MARADIAGA.
Regimen: Pulmicort twice a day/DuoNebs 3-4 times a day/albuterol HFA as needed.
Decline pulmonary embolization in the past
Decline low-dose radiation screening-has not followed through. Most recent CT chest in the hospital 08/15/2024: No lung nodules.
Chronic hypoxemia, on 2-4L
Severe pulm hypertension, PA pressure 70-likely due to chronic hypercapnic respiratory failure/advanced COPD
Echocardiogram 08/09/2024: LVEF 55%. Mild LVH. Dilated right ventricular with low normal RV systolic function. Estimated pulmonary pressure 65-70 mmHg.
Poor compliant with oxygen.
Suspect RICARDO/OHS, never had sleep study/declined testing
He declined therapy 06/2024
Prostate cancer
Incomplete right bundle branch block
Obesity
Prot mirabilis UTI
History of lower extremity cellulitis
Former smoker: Quit at least 2-1/2 years ago. 40+ pack year history
Plan/recommendations:
Patient appears to be comfortable at this time, remained on BiPAP through the night
Nursing notes suggest that when on BiPAP, he is unresponsive, not arousable
Elevated troponin noted, elevated proBNP
Heparin therapy continues
Echocardiogram 12/13 with normal biventricular function, PA pressure 65. This is stable per records. Prior echocardiogram with low normal dilated RV function
Doppler negative for DVT bilaterally
Chronic compensated hypercapnia per ABG
CXR 12/12/2024 with bilateral interstitial changes, right pleural effusion/atelectasis
CT chest 08/15/2024 with large pericardial fat pad, emphysema, pleural calcifications and mild interstitial changes, mild right basilar interstitial process
Moving forward
Patient is without complaints
94% on 15 L mid flow
Echocardiogram consistent with severe pulm hypertension, normal biventricular function
Suspect hypoxemia is multifactorial
Repeat chest x-ray 12/[address] chest at some point depending on clinical course
Continue with broad-spectrum antibiotics, currently on azithromycin, cefepime. Vancomycin discontinued
Follow cultures, leukocytosis
Maintain on BiPAP 15/5, saturation 92% on 14 L
Compensated hypercapnia noted
When off BiPAP, wean oxygen to target saturation around 90%
Obtain ABG in a.m.
Continue nebulizer therapy Pulmicort
DuoNebs [id number] 4 times daily
Did receive Solu-Medrol in the ED-maintain 60 mg daily. No wheezing on exam at this time
Would consider decreasing prednisone to 40 mg. Records suggest he was on 60 mg as outpatient. Multiple not sure what this was for but would require slow taper
Incentive spirometry when able
Acapella device when able
Avoid sedatives
Creatinine improved to 0.8
Increased proBNP-similar to prior.
Difficult to assess volume status
Cardiology following, remains on aspirin, statin, beta-yaz, heparin therapy
Patient may require more aggressive diuresis
Labs pending today.
Patient has significant pulmonary hypertension with RV dysfunction-likely to underlying pulmonary disease, poor compliance with oxygen therapy, untreated obesity hypoventilation syndrome and diastolic heart failure
Continue oxygen plantation to maintain pulse ox above 90%
Diuresis per cardiology
DVT prophylaxis: Presently on heparin drip for elevated troponin
GI prophylaxis: Not indicated
Poor prognosis. Respiratory status is tenuous.
Patient is full code.
As above he has decline addressed CODE STATUS in the past
I reviewed with patient severity of his underlying pulmonary process
Prior admission conversations:
He understands high risk of readmission and without noninvasive mechanical ventilation.
Multiple extensive discussion with him in the outpatient setting and during this admission.
Patient has repeatedly stated he has no intention to continue BPAP as outpatient: we have discussed hospice but he does not believe he is ill
He does not feel he has any issue with his lungs, he is in 'perfect health.'
He does not wish to change his code status and does not have family/medical POA designation (he says he has no children or siblings, despite sister is contact). He feels he does not need anyone.
He is not ready for hospice despite his level of noncompliance.
Prior conversations:
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
Noted full code status
Will benefit from [facility] discussion with family, given his multiple comorbidities and persistent medical noncompliance. He may be at increased risk for prolonged mechanical ventilation and associated complications. In my humble opinion he should be
DNR/DNI.
This was discussed with him and care team on prior visits
unfortunately he has very poor insight
Not much else to offer.
Follow up with Dr. Marte after discharge known to have poor compliance with therapy, unable to afford medications, poor compliant with oxygen, refusing BiPAP, last time seen in June 2024 with SENIOR CYBER INTELLIGENCE ANALYST.
Diagnostic Data
CT chest 08/15/2024-no evidence for pulm embolism, moderate to advanced emphysematous lung changes and in the posterior right lower lobe bronchial wall thickening suggesting secretions or mucous plugging.
CXR 08/08/24- Cardiomegaly. Radiographic findings felt to most likely represent pulmonary edema.
CXR 03-31-23 (portable) c/w 01-16-22 (PA/lat): Old films with no infiltrates. Current film slightly lordotic/rotated. R basilar linear atelectasis, mild pulm vasc congestion
PET CT 01-17-23 IMPRESSION: [Marked uptake of activity in the prostate gland suspicious for malignancy.] Extension of malignancy to involve the seminal vesicles cannot be excluded on the basis of this study. Coronary artery calcifications and
sigmoid diverticulosis. Please note, evaluation may be limited with possible false negative results in light of the large volume of activity seen in the prostate gland.
Bilateral Doppler 12/12/2024: Negative for DVT
R leg doppler 03-31-23: negative
TTE 04-01-23 CONCLUSIONS: Normal left ventricular chamber size. Normal left ventricular systolic function. Left ventricular ejection fraction is 55% by visual estimate. Normal regional wall motion. Mild concentric left ventricular hypertrophy. Stage
II diastolic dysfunction suggestive of abnormal relaxation and increased filling pressures. Moderately dilated right ventricle with moderately reduced systolic function. Dilated right atrium. Mild to moderate tricuspid regurgitation. Estimated
pulmonary artery pressure of 70 mmHg assuming a right atrial pressure of 15 mmHg. Compared to prior study dated 01/18/22 which was directly reviewed, LV function was previously hyperdynamic, otherwise no significant change.
Subjective Data
-
Date of Service:
Date of Service: December 14, 2024
Subjective:
Patient is without complaints. He does have a productive cough. Denies chest pain, nausea. Notes suggest patient unresponsive overnight on BiPAP. This morning awake and alert, oriented to hospital. At times is difficult historian, word finding,
rambling with simple questions
Objective Data
Data Reviewed
Vital Signs / I&O / Oxygen:
Vital Signs
Temp Pulse Resp BP Pulse Ox
97.6 F 77 20 125/74 94
12/14/24 07:08 12/14/24 07:28 12/14/24 07:28 12/14/24 06:00 12/14/24 07:58
Intake and Output
12/13/24 12/14/24 12/15/24
06:59 06:59 06:59
Intake Total 1130 / 1130 1520 / 1520
Output Total 900 / 900
Balance 1130 / 1130 620 / 620
SaO2 94
Nasal Cannula flow liters per 6
minute
Physical Exam
General: Comfortable and Other (Large neck, dry mucosa)
HEENT: Normocephalic and Anicteric
Cardiovascular: S1-S2, Regular Rhythm, Murmur (n), Rub (n) and Peripheral Edema (Chronic venous stasis changes, 1-2+)
Respiratory: Wheeze (n), Crackles (n), Rhonchi (n), Non-Labored Respirations and Other (Decreased breath sounds)
GI: Soft, Non Distended (Obese) and Non Tender
Neurology: Awake, Alert and No Motor Deficits (Moves all extremities, generally weak)
Skin: Other (Mild lower extremity erythema, no warmth)
Labs/Micro/Reports
Laboratory Results
12/13/24 12/13/24 12/13/24
11:11 12:21 19:00
APTT Cancelled 59.1 H Cancelled
Microbiology
12/13/24 16:26 Urine Streptococcus pneumoniae Antigen (M - Final
Negative for Streptococcus pneumoniae antigen.
A negative result does not exclude infection with
Streptococcus pneumoniae. Clinical correlation is
recommended.
12/13/24 16:26 Urine Legionella Urinary Antigen - Final
Negative for Legionella pneumophila Serogroup 1 antigen.
A negative result does not rule out the possiblity of
Legionella infection due to other serogroups or species of
Legionella. Clinical correlation is recommended.
12/12/24 16:42 Nose Nasal Screen MRSA (PCR) - Final
MRSA not detected - performed by PCR methodology.
12/12/24 09:55 Blood/Venous Blood Culture - Preliminary
No Growth in 24 hours- Final report to follow
12/12/24 09:39 Blood/Venous Blood Culture - Preliminary
No Growth in 24 hours- Final report to follow
12/12/24 09:07 Nasal Swab Influenza Types A & B (NICOLE) - Final
Negative for Influenza A & B, NAAT
Negative results must be combined with clinical observations
and patient history.
Nucleic Acid Amplification test (NAAT)performed on the
[employer] platform.
--- NOTE | 2024-12-14 08:23 | PTCARENOTE ---
Patient received from adult basic education instructor. Patient resting comfortably in bed. AAOx2, some confused conversation. VSS. No events noted over night. No complaints of pain at this time. Patient now off BiPAP and placed on 10L Midflow N/C, will attempt to
wean as tolerated. No testing scheduled at this time. Call thompson in reach.
[2024-12-14 08:59] LABS: Hemoglobin 10.7 g/dL (13.0-18.0); Mean Corp Hgb Conc. 31.5 g/dL (33.0-37.0); Mean Corpuscular Hgb 29.2 pg (27.0-31.0); Mean Corpuscular Volume 92.6 fL (80.0-94.0); Mean Platelet Volume 9.9 fL (7.4-10.4); Platelet Count 182 10^3/uL (130-400); Red Blood Cell Count 3.67 10^6/uL (4.70-6.10); Red Cell Dist. Width 14.4 % (11.5-14.5); White Blood Cell Count 12.6 10^3/uL (4.8-10.8)
[2024-12-14 09:24] LABS: Blood Urea Nitrogen 33 mg/dl (9-20); Calcium 9.5 mg/dl (8.4-10.2); Carbon Dioxide 40 mmol/L (22-30); Chloride 100 mmol/L (98-107); Estimated Creatinine Clearance 103 ml/min; Glucose 106 mg/dl (70-99); Magnesium 2.3 mg/dl (1.6-2.3); Sodium 146 mmol/L (135-145); eGFR > 60.00
[2024-12-14] MEDS: LOPRESSOR 25 MG PO ×2 (09:47→19:55)
[2024-12-14] MEDS: MUCINEX 1200 MG PO ×2 (09:47→19:55)
[2024-12-14] MEDS: CASODEX 50 MG PO (09:48)
[2024-12-14] MEDS: LOW STRENGTH ASPIRIN 81 MG PO (09:48)
[2024-12-14] MEDS: AFRIN NASAL SPRAY 2 SPRAYS NASAL ×4 (09:48→21:47)
[2024-12-14] MEDS: DELTASONE 50 MG PO (09:48)
[2024-12-14] MEDS: ZOLOFT 100 MG PO (09:48)
--- NOTE | 2024-12-14 10:23 | PN.CDI ---
CDI
- -
CDI:
Physician Documentation Request
Admit Date: 12/12/24 11:30
Dear Doctor Tiffanie,
Please review the following and provide your response in the progress notes.
Clinical Indicators:
Pt admitted with sepsis 2/2 Bilateral PNA/ Acute on chronic Hypoxic Respiratory Failure
Documented per WOCN note 12/13,' WOC RN NOTE....Patient with bilateral stage 2 ischial wounds. Please see worklist for measurements and details of wounds. Patient also with stage 1 PI to bilateral heels......Will recommend Honey Gel to ischial
wounds. No-sting barrier wipe and adhesive foam to bilateral heels.....'
Physician documentation of the type and location of wounds is required for compliant documentation. Based on the above clinical findings and your assessment, please provide the following in your progress note:
1. Location of the ulcer/wound, including laterality.
2. Type (etiology) of ulcer/wound:
- Pressure (decubitus) ulcer
- Non-pressure ulcer
- Other ( please specify)
Use of terms such as suspected, likely, concern for, or probable (associated with a specific diagnosis that is being evaluated, monitored, or treated as if it exists) are acceptable and can be coded in the inpatient setting, when documented at the
time of discharge.
Thank you,
Sanna Flores RN
CDI Specialist
[place] [facility]
Please use your independent medical judgment in providing your response.
*Source: National Pressure Ulcer Advisory Panel (NPUAP)
--- NOTE | 2024-12-14 10:34 | PN.CDI ---
CDI
- -
CDI:
Physician Documentation Request
Admit Date: 12/12/24 11:30
Dear Doctor Tiffanie,
Please review the following and provide your response in the progress notes.
Clinical Indicators:
Pt admitted with sepsis 2/2 Bilateral PNA/ Acute on chronic Hypoxic Respiratory Failure
Documented per ED, ' Per rehab facility, was noted to have a change in mental status, additionally with low oxygen and low blood pressure...(Patient obtunded)...Neuro: alert, disoriented to time...'
Documented per H&P, ' ... presents to the ER with change in mentation. Patient was at [place], noted to have somnolence, low oxygen and low blood pressure. .....'
Pt care note 12/12 @ 2020,' Received pt from idalia RN. Pt minimally responsive. Moves extremities in response to pain....'
Pt care note 12/13 @ 1722,'Drowsy all day- easily arousable. Garbled slurred confused speech continues- gets agitated when not understandable. .....'
Pt care note 12/14 @ 0143,' Received pt from idalia RN. Pt minimally responsive. Per idalia RN, pt has been off bipap all day. Pt does not answer questions, nonverbal at this time. Arouses slightly to tactile stimuli. ...'
Based on the above, could you clarify in the Progress Notes and Discharge Summary which, if any of the following, is the most likely etiology of the confusion/altered mental status.
Metabolic Encephalopathy
Toxic metabolic encephalopathy
Altered mental status only
Other ( please specify)
Use of terms such as suspected, likely, concern for, or probable (associated with a specific diagnosis that is being evaluated, monitored, or treated as if it exists) are acceptable and can be coded in the inpatient setting, when documented at the
time of discharge.
Thank you,
Sanna Flores RN
CDI Specialist
[place] [facility]
Please use your independent medical judgment in providing your response.
--- NOTE | 2024-12-14 11:24 | W.PN.CARDCBS ---
Addendum entered and electronically signed by Ciaran Buckley MD 12/14/24 11:39:
I saw and examined the patient.
The CHIEF PROGRAM OFFICER or PA's note was reviewed and I agree with the note.
Comment: General: Well developed, well nourished in NAD.
Neck: Supple, no JVD, HJR, carotids +2 B/L, no bruits bilaterally.
Heart: Non displaced PMI, RRR, no murmurs, No S3, S4, no rubs.
Lungs: Scattered rhonchi
Extremities: No clubbing, cyanosis or edema bilaterally.
Neuro: Grossly nonfocal, awake, alert and oriented x3.
He remains hypoxic on 6 L. Unclear whether this is due to COPD or CHF. May consider resuming oral Lasix later today if blood pressure allows.
Original Note:
Today's Communication / Plan
-
follow BPs
resume po diuretics later today if BP allows
Impression / Plan
-
Primary Regroover: Dr. Kelley
Assessment:
Presentation with change in mental status
Sepsis
B/L PNA
Acute on chronic hypoxic respiratory failure
Chronic Hypercapnic Respiratory Failure
Elevated troponin, suspected nonischemic myocardial injury
Hypokalemia
CLEMENTINE
Chronic HFpEF
CAD with KS s/p 3 mm Synergy BENNY to mid to mid-distal LAD and residual 50-60% RCA lesion by cath 12/2021
Severe COPD
Chronic hypoxic respiratory failure on 3-4 L NC continuously
Hypertension
Hyperlipidemia
Obesity
Suspected obstructive sleep apnea
Prostate cancer
History of hematuria
Anxiety
Former smoker
Possible bipolar disorder
Echo 04/09/24: EF 68%, mild LVH, severe PHTN with PAP 67 mmHg, compared to echo 03/2023 no significant change
Echo 08/09/24: EF 55%, TDS, normal LV function, mild LVH, dilated RV with low normal RV sys pressure, mild TR with PASP 65-70 mmHg
ECHO/: EF 60 to 65%, mild concentric LVH, mild MR, mild TR, PAP 65 mmHg, no significant change compared to prior
Plan:
-Patient presented with change in mental status as well as hypoxia and hypotension. noted to have evidence of PNA by CXR. currently on 6L, continue to wean as able
-cardiology consulted as trop peaked at 1.8 and trended down. no CP. has history of CAD with prior LAD stent with residual RCA disease in 2021. EKG SR with PACs and NSSTS. treating as nonischemic myocardial injury in setting of hypoxia and PNA.
-Status post 48 hours of IV heparin, stopped 12/14 AM. continue asa
-continue lipitor
-He is back on p.o. Lopressor 25 mg twice daily and has not had runs of atrial tachycardia on review of telemetry overnight as seen earlier in admission.
-Blood pressures presently on low side 80s systolic. Have asked nurse to recheck. Patient asymptomatic
-proBNP in setting of acute CHF last admission was 78447. proBNP this admission 2490. weight also lower than 07/2024 admission. does have B/L LE edema, however suspect multifactorial as also with degree of venous stasis/lymphedema. Was on Lasix 60
mg p.o. twice daily prior to admission, would attempt to resume if blood pressures improve later today
-Echo without significant change compared to prior, EF preserved
-treatment of PNA/COPD per primary service/pulm
-d/w nursing
Progress Note - Regroover
Subjective
Date of Service: December 14, 2024
Patient appears confused, repetitive
Objective
Labs:
12/14/24 08:36
12/14/24 08:36
Labs
Hgb 10.7 g/dL (13.0-18.0) L 12/14/24 08:36
Hct 34.0 % (39.0-52.0) L 12/14/24 08:36
Plt Count 182 10^3/uL (130-400) 12/14/24 08:36
PT 15.5 Sec (11.4-14.6) H 12/12/24 09:39
INR 1.18 12/12/24 09:39
APTT Cancelled 12/13/24 19:00
Sodium 146 mmol/L (135-145) H 12/14/24 08:36
Potassium 4.0 mmol/L (3.5-5.1) 12/14/24 08:36
BUN 33 mg/dl (9-20) H 12/14/24 08:36
Creatinine 0.7 mg/dL (0.7-1.3) 12/14/24 08:36
Glucose 106 mg/dl (70-99) H 12/14/24 08:36
Troponins
12/12/24 12/12/24 12/12/24
09:39 17:47 20:31
Troponin I 0.455 H* 1.800 H* 1.710 H*
12/13/24
03:56
Troponin I 1.010 H* D
Vital Signs and I&O:
Vital Signs
Temp Pulse Resp BP Pulse Ox
97.6 F 81 20 105/53 96
12/14/24 07:08 12/14/24 10:52 12/14/24 10:52 12/14/24 09:47 12/14/24 10:52
Vital Signs
Temp Pulse Resp BP Pulse Ox
97.6 F 81 20 105/53 96
12/14/24 07:08 12/14/24 10:52 12/14/24 10:52 12/14/24 09:47 12/14/24 10:52
Intake & Output
12/12/24 12/13/24 12/14/24 12/15/24
07:59 07:59 07:59 07:59
Intake Total 1130 / 1130 1520 / 1520
Output Total 900 / 900
Balance 1130 / 1130 620 / 620
Physical Exam
Physical Exam
GEN: No distress, awake, alert, oriented to self. on supp O2. obese. repetitive
HEENT: supple, anicteric, mmm, eomi
LUNGS: Few wheezes
CV: Reg with ectopy, S1/S2, no murmur
ABD: soft, BS+, NT/ND
EXT: No cyanosis, clubbing. 3+ edema of B/L LE
NEURO: Gross non-focal
SKIN: Warm, pink, dry. No rash
[2024-12-14] MEDS: ZITHROMAX 500 MG PO (13:10)
[2024-12-14] MEDS: LASIX 60 MG PO (16:45)
--- NOTE | 2024-12-14 16:56 | CM ---
Patient from [facility] with Dx Sepsis 2/2 Bilateral Pneumonia. O2 10L. Receiving IV Abx. Per nurse: Jigar.
[facility]: The ph for report [phone], fax [phone].
Plan contact patient's sister Camila prior to d/c.
Plan return to [facility] when medically ready.
[2024-12-14] MEDS: LIPITOR 20 MG PO (19:55)
--- NOTE | 2024-12-14 22:57 | PTCARENOTE ---
Pt received at beginning of shift resting in bed. AAOX2. Speech very garbled and fast. Can be easily agitated when care provided. Forgetful. + edema LE's elevated on pillows. Denies pain or discomfort. 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 Currently on 8L MF POX
92-98%. Lungs clear but diminished and shallow. SR/ST/PVC on CM rate 80-120's. Hypoactive BS. #21 CC on and draining clear yellow urine. Skin as documented. Maintained on Q2hr turns. Rest of assessment as documented. Call thompson remains within reach.
Will continue to monitor.
[2024-12-15] VITALS (24 sets, daily range): BP systolic 94–140; BP diastolic 55–111; PULSE 2–71; BMI 29.9
[2024-12-15] MEDS: STERILE WATER FOR INJECTION 10 ML IV ×4 (03:04→21:57)
[2024-12-15] MEDS: FLUSH (NSS) 1 FLUSH IV (03:04)
[2024-12-15] MEDS: MAXIPIME 1000 MG IV ×4 (03:04→21:57)
[2024-12-15 04:18] LABS: Hematocrit 31.2 % (39.0-52.0); Mean Corp Hgb Conc. 32.1 g/dL (33.0-37.0); Mean Corpuscular Hgb 29.9 pg (27.0-31.0); Mean Corpuscular Volume 93.1 fL (80.0-94.0); Mean Platelet Volume 10.6 fL (7.4-10.4); Platelet Count 182 10^3/uL (130-400); Red Blood Cell Count 3.35 10^6/uL (4.70-6.10); Red Cell Dist. Width 14.2 % (11.5-14.5); White Blood Cell Count 13.2 10^3/uL (4.8-10.8)
[2024-12-15 04:45] LABS: Blood Urea Nitrogen 27 mg/dl (9-20); Chloride 98 mmol/L (98-107); Estimated Creatinine Clearance 90 ml/min; Glucose 153 mg/dl (70-99); Potassium 3.5 mmol/L (3.5-5.1); Sodium 144 mmol/L (135-145); eGFR > 60.00
[2024-12-15 05:06] LABS: Carbon Dioxide 38 mmol/L (22-30)
[2024-12-15 05:13] LABS: B.E. 21.9 mmol/L; O2 Saturation % 99.3 % (94-98); PO2 105 mmHg (83-108); pH 7.45 (7.35-7.45)
[2024-12-15 05:19] LABS: O2 Therapy 10L NC
[2024-12-15 05:20] LABS: HCO3 49.3 mmol/L (21-28); PCO2 71 mmHg (35-48)
[2024-12-15] MEDS: DUONEB 3 ML INH ×4 (07:29→18:21)
[2024-12-15] MEDS: PULMICORT 0.5 MG INH ×2 (07:30→18:21)
--- NOTE | 2024-12-15 07:30 | W.PN.HOSP.TC ---
Addendum entered and electronically signed by Gerri Moreno MD 12/15/24 07:34:
Patient with bilateral stage 2 ischial wounds.
-appreciate wound care
TME 2/2 sepsis
-now resolved, patient at baseline. He remains tangential with limited insight
Original Note:
Today's Communication/Plan
-
continue antibiotics and oral lasix
wean O2 as able
eventual SNF
appreciate Pulmonary and Cardiology Evals
Assessment / Plan
Assessment / Plan
Mr. Adam Styles is a 74 yo m an with hx COPD, chronic hypoxic respiratory failure on 4L O2, HFpEF, CAD (NSTEMI s/p PCI 2021), HFpEF, essential HTN, HLD, prostate CA, former smoker presents to the ER with change in mentation. Patient was at
[place], noted to have somnolence, low oxygen and low blood pressure. He was admitted for sepsis and hypoxic respiratory failure 2/2 pneumonia.
EKG with non-specific ST and T wave changes; sinus rhtyhm with PAC's
TTE 12/13/24:
CONCLUSIONS
Normal left ventricular size and systolic function. No regional wall motion
abnormalities are seen. LV ejection fraction is 60-65% by visual assessment.
Mild concentric left ventricular hypertrophy.
Normal right ventricular size. Normal right ventricular systolic function.
Mild mitral regurgitation.
Mild tricuspid regurgitation. Estimated pulmonary artery pressure of 65 mmHg.
Assuming a right atrial pressure of 3 mmHg.
Compared to prior study dated 08/09/2024, there is no significant change
Sepsis 2/2 Bilateral Pneumonia
Hypotension responsive to IVF
Acute on Chronic Hypoxic Respiratory Failure
Chronic Hypercapnic Respiratory Failure
Respiratory acidosis with compensatory metabolic alkalosis
-flu and covid negative
-ABG shows compensated respiratory acidosis
-placed on BiPAP in the ER, transitioned to high flow/mid flow on 12/13; weaned down to 8L on 12/14
-Pulmonary consult appreciated
-continue IV Cefepime/Azithro
-MRSA screen negative, - Vanc discontinued
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
-standing nebulizers and PRN
-continue Mucinex
-steroid taper per pulm - outpatient records showed prednisone 60mg PO QD, now on 50mg PO QD
-confirmed with patient his FULL CODE status - further discussions to have this admission given his severe COPD
Heart Failure preserved EF
-TTE 08/09/24 with EF 55%, mild concentric LVH
-on Lasix 60mg PO BID at home
-volume status difficult as presented hypotensive and responsive to fluids; he has CLEMENTINE but with significant LE swelling. given body habitus cannot assess JVP
-s/p 500cc bolus x 2 with improvement in BP; s/p IVF (discontinued on 12/13)
*METAL ALLOY SCIENTIST oral lasix resumed on 12/14 - stable renal function this morning; SBP low 100's
Hypokalemia
-repleted
Nonischemic myocardial Troponin Elevation
-in setting of hypoxia and sepsis
-no chest pain
-Trop peaked at 1.8. IV Heparin gtt discontinued (nl TTE)
-asa daily
-repeat TTE results above
-appreciate Cardiology
Depression
-METAL ALLOY SCIENTIST Zoloft
Acute Kidney Injury
-resolved with IVF
Essential HTN
-hold METAL ALLOY SCIENTIST Amlodipine
-METAL ALLOY SCIENTIST Metoprolol with hold parameters
CAD with hx PCI
-METAL ALLOY SCIENTIST asa/statin/Metoprolol
DVT PPx Hep gtt
FULL CODE - on patient's forms from [place], confirmed on admission
51 minutes spent on patient care
Anticipated Discharge: > 48 hours
Subjective/Interval History
-
Date of Service: December 15, 2024
taken off bipap earlier this morning
no new complaints
Objective Data
-
Labs:
Laboratory Results
12/15/24 12/15/24
03:50 05:00
WBC 13.2 H
Hgb 10.0 L
Hct 31.2 L
Plt Count 182
HCO3 49.3 H*
Sodium 144
Potassium 3.5
Chloride 98
Carbon Dioxide 38 H
BUN 27 H
Creatinine 0.8
Glucose 153 H
Calcium 9.0
Vital Signs:
Vital Signs
Temp Pulse Resp BP Pulse Ox
99.6 F 77 30 99/55 93
12/15/24 03:09 12/15/24 04:00 12/15/24 04:00 12/15/24 03:00 12/15/24 04:00
I&O
12/14/24 12/15/24 12/16/24
06:59 06:59 06:59
Intake Total 1520 / 1520
Output Total 900 / 900 1200 / 1200
Balance 620 / 620 -1200 / -1200
Review of Systems
-
History Source: Patient
All other systems: Reviewed and negative
Physical Exam
-
General: No Apparent Distress and Appears Chronically Ill
HEENT: Normocephalic, Atraumatic and Moist Mucous Membranes
Respiratory: Negative Wheezes
Cardiac: Regular Rhythm
GI: Soft, Nontender and Nondistended
Musculoskeletal: No Clubbing, No Cyanosis, Edema, Right Lower Extrem and Edema, Left Lower Extrem
Neuro: Awake, Alert, Oriented, AO x 3 and Other (tangential)
Psych: Calm
Data Reviewed
-
Diagnostic Radiology: Report Reviewed by me
Labs: Labs Reviewed by me
[2024-12-15] MEDS: LASIX 60 MG PO (09:03)
[2024-12-15] MEDS: LOW STRENGTH ASPIRIN 81 MG PO (09:05)
[2024-12-15] MEDS: DELTASONE 50 MG PO (09:05)
[2024-12-15] MEDS: MUCINEX 1200 MG PO ×2 (09:05→20:26)
[2024-12-15] MEDS: ZOLOFT 100 MG PO (09:05)
[2024-12-15] MEDS: AFRIN NASAL SPRAY 2 SPRAYS NASAL ×4 (09:06→21:56)
[2024-12-15] MEDS: LOPRESSOR 25 MG PO ×2 (09:06→20:26)
[2024-12-15] MEDS: CASODEX 50 MG PO (09:08)
--- NOTE | 2024-12-15 09:56 | W.PN.CARDCBS ---
Today's Communication / Plan
-
Oral diuretic
Pulmonary therapies as you are
Blood pressure is mildly improved
Will follow
Impression / Plan
-
Primary Technical Sales Manager: Dr. Kelley
Assessment:
Presentation with change in mental status
Sepsis
B/L PNA
Acute on chronic hypoxic respiratory failure
Chronic Hypercapnic Respiratory Failure
Elevated troponin, suspected nonischemic myocardial injury
Hypokalemia
CLEMENTINE
Chronic HFpEF
CAD with [place] s/p 3 mm Synergy BENNY to mid to mid-distal LAD and residual 50-60% RCA lesion by cath 12/2021
Severe COPD
Chronic hypoxic respiratory failure on 3-4 L NC continuously
Hypertension
Hyperlipidemia
Obesity
Suspected obstructive sleep apnea
Prostate cancer
History of hematuria
Anxiety
Former smoker
Possible bipolar disorder
Echo 04/09/24: EF 68%, mild LVH, severe PHTN with PAP 67 mmHg, compared to echo 03/2023 no significant change
Echo 08/09/24: EF 55%, TDS, normal LV function, mild LVH, dilated RV with low normal RV sys pressure, mild TR with PASP 65-70 mmHg
ECHO/: EF 60 to 65%, mild concentric LVH, mild MR, mild TR, PAP 65 mmHg, no significant change compared to prior
Plan:
-Patient presented with change in mental status as well as hypoxia and hypotension. noted to have evidence of PNA by CXR. currently on 6L, continue to wean as able
-cardiology consulted as trop peaked at 1.8 and trended down. no CP. has history of CAD with prior LAD stent with residual RCA disease in 2021. EKG SR with PACs and NSSTS. treating as nonischemic myocardial injury in setting of hypoxia and PNA.
-Status post 48 hours of IV heparin, stopped 4/18 AM. continue asa
-continue lipitor
-He is back on p.o. Lopressor 25 mg twice daily for atrial tachycardia
- Blood pressures are stable today
-proBNP in setting of acute CHF [place] admission was 72561. proBNP this admission 2490. weight also lower than 07/2024 admission. does have B/L LE edema, however suspect multifactorial as also with degree of venous stasis/lymphedema. His lower
extremity findings do appear to be chronic venous stasis. Was on Lasix 60 mg p.o. twice daily prior to admission and we will continue this I suspect he is euvolemic at this point
-Echo without significant change compared to prior, EF preserved
-treatment of PNA/COPD per primary service/pulm
-d/w nursing
Progress Note - Technical Sales Manager
Subjective
Date of Service: December 15, 2024
Breathing about the same today
Objective
Labs:
12/15/24 03:50
12/15/24 03:50
Labs
Hgb 10.0 g/dL (13.0-18.0) L 12/15/24 03:50
Hct 31.2 % (39.0-52.0) L 12/15/24 03:50
Plt Count 182 10^3/uL (130-400) 12/15/24 03:50
PT 15.5 Sec (11.4-14.6) H 12/12/24 09:39
INR 1.18 12/12/24 09:39
APTT Cancelled 12/13/24 19:00
Sodium 144 mmol/L (135-145) 12/15/24 03:50
Potassium 3.5 mmol/L (3.5-5.1) 12/15/24 03:50
BUN 27 mg/dl (9-20) H 12/15/24 03:50
Creatinine 0.8 mg/dL (0.7-1.3) 12/15/24 03:50
Glucose 153 mg/dl (70-99) H 12/15/24 03:50
Troponins
12/12/24 12/12/24 12/12/24
09:39 17:47 20:31
Troponin I 0.455 H* 1.800 H* 1.710 H*
12/13/24
03:56
Troponin I 1.010 H* D
Vital Signs and I&O:
Vital Signs
Temp Pulse Resp BP Pulse Ox
97.4 F 82 16 117/83 96
12/15/24 07:15 12/15/24 07:30 12/15/24 07:30 12/15/24 09:06 12/15/24 07:30
Vital Signs
Temp Pulse Resp BP Pulse Ox
97.4 F 82 16 117/83 96
12/15/24 07:15 12/15/24 07:30 12/15/24 07:30 12/15/24 09:06 12/15/24 07:30
Intake & Output
12/13/24 12/14/24 12/15/24 12/16/24
06:59 06:59 06:59 06:59
Intake Total 1130 / 1130 1520 / 1520 240 / 240
Output Total 900 / 900 1200 / 1200
Balance 1130 / 1130 620 / 620 -1200 / -1200 240 / 240
Physical Exam
Physical Exam
����Physical Exam
���������������������General:��no apparent distress, not acutely ill
���������������������������Neck:��supple. no meningeal signs. normal psoterior pharynx
������������������������
���������������������������Heart:��s1/s2 regular rate and rhythm, no murmur. equal radial pulses.
��������������������������Lungs: ��no acute respiratory distress. clear bilaterally
����������������������Abdomen:�normal bowel sounds. not tender. no CVAT
��������������������������Neuro:��alert and oriented. no focal neurological deficits
������������������������������Skin: ��no rash
�����������������������Psychiatric:�well kept. interactive and cooperative
�����������������������Extremities:��no edema. no calf tenderness. negative homans. good distal pulses
��
�
[2024-12-15] MEDS: ZITHROMAX 500 MG PO (12:26)
--- NOTE | 2024-12-15 16:33 | W.PN.PUL3 ---
Today's Communication / Plan
-
Check VBG now to assess pH + pCO2
Placed onto BiPAP if pH is starting to drop below sign 7.3
Low threshold to intubate
Regardless, he needs to be on BiPAP with sleep
Continue prednisone with slow taper
Not clear why he was on outpatient 60 mg? Based on this, will likely require slow taper
Continue nebulized therapy
Remains on antibiotics
Check CT chest given increased right lower lobe opacity on CXR from today
Cardiology following and recs appreciated
Overall respiratory status remains tenuous
Assessment
-
Patient is a 74 year old M with previous history of severe COPD/emphysema, chronic hypoxemia, obesity, suspected RICARDO/OHS (refused testing), noncompliance presenting to ER with change in mental status, hypoxemia per. Presents from [facility],
usually on 4 L. He was placed on noninvasive mechanical ventilation and high flow oxygen in the emergency room. I was consulted on 12/12/2024 for evaluation.
Acute on chronic hypoxic and hypercarbic respiratory failure-change in mental status-requiring noninvasive mechanical ventilation/high flow oxygen
VBG 12/12/2024: 7.51/71/110-likely stable as prior ABG 11/15/2024 was 7.45/71/90
Chest x-ray 12/12/2024: Bibasilar opacities left greater than right.
Possible pneumonia, cannot rule out aspiration
Low-grade fever/no leukocytosis
Negative influenza/negative COVID 12/12/2024
Acute HF exacerbation, proBNP 2490
Medical noncompliance
Advanced COPD with chronic hypercapnic and hypoxemic respiratory failure-possibly some degree of acute exacerbation.
Not compliant with oxygen therapy
Declined noninvasive mechanical ventilator in the outpatient setting
Obesity hypoventilation syndrome suspected-chronic hypercapnic respiratory failure appears stable based on VBG from 12/12/2024 per
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
Coronary disease with history of LAD stent and elevated filling pressures per catheterization December 2021
Noncompliance, refusal of treatment
Severe COPD/emphysema, GOLD IV
FEV1 30%
Follows with Dr. Marte in OP last seen 06/2024 - Saw Delym MARADIAGA.
Regimen: Pulmicort twice a day/DuoNebs 3-4 times a day/albuterol HFA as needed.
Decline pulmonary embolization in the past
Decline low-dose radiation screening-has not followed through. Most recent CT chest in the hospital 08/15/2024: No lung nodules.
Chronic hypoxemia, on 2-4L
Severe pulm hypertension, PA pressure 70-likely due to chronic hypercapnic respiratory failure/advanced COPD
Echocardiogram 08/09/2024: LVEF 55%. Mild LVH. Dilated right ventricular with low normal RV systolic function. Estimated pulmonary pressure 65-70 mmHg.
Poor compliant with oxygen.
Suspect RICARDO/OHS, never had sleep study/declined testing
He declined therapy 06/2024
Prostate cancer
Incomplete right bundle branch block
Obesity
Prot mirabilis UTI
History of lower extremity cellulitis
Former smoker: Quit at least 2-1/2 years ago. 40+ pack year history
Plan/recommendations:
He is becoming more lethargic as the day is ongoing.
Need to check a blood gas to ensure he is not becoming more hypercapnic
He did wear BiPAP overnight on 15/5 cmH2O bled with 8 L/min
Depending on blood gas, he will need to be placed back onto BiPAP
Low threshold to intubate
Elevated troponin which peaked at 1.8; no longer need to continue trending at this time
Previously on heparin drip which is now stopped as cardiology has low suspicion that he has ischemic myocardial injury in the setting of his hypoxia + pneumonia
Echocardiogram 12/13 with normal biventricular function, PA pressure 65. This is stable per records. Prior echocardiogram with low normal dilated RV function
Doppler negative for DVT bilaterally
Chronic compensated hypercapnia per ABG
CXR 12/12/2024 with bilateral interstitial changes, right pleural effusion/atelectasis
CT chest 08/15/2024 with large pericardial fat pad, emphysema, pleural calcifications and mild interstitial changes, mild right basilar interstitial process
Echocardiogram from 12/13/2024 consistent with severe pulm hypertension, normal biventricular function - no significant changes compared to prior echo on 08/09/2024
Suspect hypoxemia is multifactorial
Considering that the CXR today shows worsening RLL opacification, check CT chest given his continued hypoxia which is now worsening
Continue with broad-spectrum antibiotics, currently on azithromycin, cefepime. Vancomycin discontinued
Follow cultures, leukocytosis
Compensated hypercapnia noted
Continue BiPAP with sleep
When off BiPAP, wean oxygen to target saturation 88-95%
Obtain serial blood gas to assure pH + pCO2 remained stable
Continue nebulizer therapy with Pulmicort + DuoNebs
Did receive Solu-Medrol in the ED-maintain 60 mg daily. No wheezing on exam at this time
Currently on prednisone 50 mg daily (started 12/13/2024)
Records suggest he was on 60 mg as outpatient. Not sure what this was for but would require slow taper
Incentive spirometry when able
Acapella device when able
Avoid sedatives
Creatinine improved to 0.8
Increased proBNP to 2490-similar to prior.
Difficult to assess volume status given his obesity
Cardiology following, remains on aspirin, statin + beta-yaz
Continue home dose of Lasix for now
Patient has significant pulmonary hypertension with RV dysfunction-likely to underlying pulmonary disease, poor compliance with oxygen therapy, untreated obesity hypoventilation syndrome and diastolic heart failure
DVT prophylaxis: Start LMWH
GI prophylaxis: Not indicated
Poor prognosis. Respiratory status is tenuous.
Patient is full code.
As above he has declined to address CODE STATUS in the past
Prior admission conversations:
He understands high risk of readmission and without noninvasive mechanical ventilation.
Multiple extensive discussion with him in the outpatient setting and during this admission.
Patient has repeatedly stated he has no intention to continue BPAP as outpatient: we have discussed hospice but he does not believe he is ill
He does not feel he has any issue with his lungs, he is in 'perfect health.'
He does not wish to change his code status and does not have family/medical POA designation (he says he has no children or siblings, despite sister is contact). He feels he does not need anyone.
He is not ready for hospice despite his level of noncompliance.
Prior conversations:
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
Noted full code status
Will benefit from GOC discussion with family, given his multiple comorbidities and persistent medical noncompliance. He may be at increased risk for prolonged mechanical ventilation and associated complications. In my humble opinion he should be
DNR/DNI.
This was discussed with him and care team on prior visits
unfortunately he has very poor insight
Not much else to offer.
Follow up with Dr. Marte after discharge known to have poor compliance with therapy, unable to afford medications, poor compliant with oxygen, refusing BiPAP, last time seen in June 2024 with [employer]NAGER [employer].
Pulmonary service will continue to follow along
Diagnostic Data
CT chest 08/15/2024-no evidence for pulm embolism, moderate to advanced emphysematous lung changes and in the posterior right lower lobe bronchial wall thickening suggesting secretions or mucous plugging.
CXR 08/08/24- Cardiomegaly. Radiographic findings felt to most likely represent pulmonary edema.
CXR 03-31-23 (portable) c/w 01-16-22 (PA/lat): Old films with no infiltrates. Current film slightly lordotic/rotated. R basilar linear atelectasis, mild pulm vasc congestion
PET CT 01-17-23 IMPRESSION: [Marked uptake of activity in the prostate gland suspicious for malignancy.] Extension of malignancy to involve the seminal vesicles cannot be excluded on the basis of this study. Coronary artery calcifications and
sigmoid diverticulosis. Please note, evaluation may be limited with possible false negative results in light of the large volume of activity seen in the prostate gland.
Bilateral Doppler 12/12/2024: Negative for DVT
R leg doppler 03-31-23: negative
TTE 04-01-23 CONCLUSIONS: Normal left ventricular chamber size. Normal left ventricular systolic function. Left ventricular ejection fraction is 55% by visual estimate. Normal regional wall motion. Mild concentric left ventricular hypertrophy. Stage
II diastolic dysfunction suggestive of abnormal relaxation and increased filling pressures. Moderately dilated right ventricle with moderately reduced systolic function. Dilated right atrium. Mild to moderate tricuspid regurgitation. Estimated
pulmonary artery pressure of 70 mmHg assuming a right atrial pressure of 15 mmHg. Compared to prior study dated 01/18/22 which was directly reviewed, LV function was previously hyperdynamic, otherwise no significant change.
Total time spent today was 52 minutes for this encounter. Time includes reviewing laboratory test/imaging results, reviewing pertinent medical records, obtaining and reviewing medical history, performing an appropriate exam, ordering medications,
tests and procedures. Time also includes documentation of this encounter, coordinating patient care and communicating with other healthcare professionals. Total time does not include separately billed tests performed on this date of service.
Subjective Data
-
Date of Service:
Date of Service: December 15, 2024
Chief Complaint: Pulmonary Follow Up
Subjective:
Patient seen earlier today � late note entry. Patient remains drowsy, which has been worsening throughout the day. Chest x-ray today shows worsening right lower lobe opacification. Currently on 10 L/min with saturations of 97%, BP 137/87.
Review of Systems
General: Other (Unobtainable due to drowsiness/altered mental status)
Objective Data
Data Reviewed
Vital Signs / I&O / Oxygen:
Vital Signs
Temp Pulse Resp BP Pulse Ox
97.4 F 82 16 117/83 96
12/15/24 07:15 12/15/24 07:30 12/15/24 07:30 12/15/24 09:06 12/15/24 07:30
Intake and Output
12/14/24 12/15/24 12/16/24
06:59 06:59 06:59
Intake Total 1520 / 1520 240 / 240
Output Total 900 / 900 1200 / 1200
Balance 620 / 620 -1200 / -1200 240 / 240
SaO2 96
Nasal Cannula flow liters per 10
minute
Physical Exam
General: Respiratory Distress (n), Chills (n), Sweats (n) and Other (Large neck, dry mucosa)
HEENT: Normocephalic, Anicteric and Other (thick neck)
Cardiovascular: S1-S2, Peripheral Edema (+2 lower extremity edema bilaterally) and Other (Distant heart sounds bilaterally)
Respiratory: Wheeze (n), Crackles (Bilaterally), Rhonchi (n), Non-Labored Respirations and Other (Decreased breath sounds)
GI: Soft, Non Distended (Obese) and Non Tender
Neurology: Tremors (n) and Lethargic
Skin: Warm, Dry and Other (chronic venous stasis dermatitis changes bilaterally)
Labs/Micro/Reports
Lab Data
12/15/24 03:50
12/15/24 03:50
Laboratory Results
12/15/24
05:00
pH 7.45
pCO2 71 H*
pO2 105
HCO3 49.3 H*
O2 Delivery Level 10l nc
Microbiology
12/12/24 09:55 Blood/Venous Blood Culture - Preliminary
No Growth in 72 hours- Final report to follow
12/12/24 09:39 Blood/Venous Blood Culture - Preliminary
No Growth in 72 hours- Final report to follow
12/13/24 16:26 Urine Urine Culture - Final
No Significant Growth
12/13/24 16:26 Urine Streptococcus pneumoniae Antigen (M - Final
Negative for Streptococcus pneumoniae antigen.
A negative result does not exclude infection with
Streptococcus pneumoniae. Clinical correlation is
recommended.
12/13/24 16:26 Urine Legionella Urinary Antigen - Final
Negative for Legionella pneumophila Serogroup 1 antigen.
A negative result does not rule out the possiblity of
Legionella infection due to other serogroups or species of
Legionella. Clinical correlation is recommended.
12/12/24 16:42 Nose Nasal Screen MRSA (PCR) - Final
MRSA not detected - performed by PCR methodology.
12/12/24 09:07 Nasal Swab Influenza Types A & B (NICOLE) - Final
Negative for Influenza A & B, NAAT
Negative results must be combined with clinical observations
and patient history.
Nucleic Acid Amplification test (NAAT)performed on the
invino platform.
[2024-12-15] MEDS: LASIX PO ×2 (17:01→17:19)
--- NOTE | 2024-12-15 17:43 | PTCARENOTE ---
Pt found asleep in bed and was difficult to arouse; Opened eyes to tactile stimuli but would not fully awake and respond. Distinct change in responsiveness from prior. SpO2 = 97 % on 10L Midflow; SR on monitor; BP = 137/87, RR= 25; Rf Microwave Engineer
present and to order VBG and to check Chest CT; Will continue to monitor and assess.
[2024-12-15] MEDS: DUONEB INH (18:21)
[2024-12-15 18:36] LABS: Venous Blood Gas B.E. 22.4 mmol/L (-4 to +4); Venous Blood Gas O2 Sat % 99.3 %; Venous Blood Gas pH 7.45 (7.32-7.43); Venous Blood Gas pO2 232 mmHg (30-50)
[2024-12-15 18:38] LABS: Venous Blood Gas pCO2 72 mmHg (35-48)
[2024-12-15] MEDS: LOVENOX 40 MG SC (19:07)
[2024-12-15] MEDS: LOPRESSOR PO (19:33)
[2024-12-15] MEDS: MUCINEX PO (19:33)
--- NOTE | 2024-12-15 20:06 | PTCARENOTE ---
Pt obtunded at change of shift. Opens eyes on verbal/tactile. Closes eyes immediately. Nonverbal. Very moist weak head mixer cough. Apneic at times. BP 115/72 RR's 20's. POX on 10L MF 84-91%. RT TT'd and on their way to place pt on BIPAP. Lungs rhonchi
anteriorly and posterior right base. Pt with +3 edema B/L UE's and +2 LLE and +1 RLE. All elevated on pillows. Hephzeba BULB PACKER TT'd and updated on above. She will look into pt's chart. Per report pt unable to take po Lasix earlier. Requested IV dose
of Lasix. Will continue to monitor.
[2024-12-15] MEDS: LIPITOR 20 MG PO (20:27)
[2024-12-15] MEDS: LASIX 40 MG IV (20:27)
[2024-12-15] MEDS: FLUSH (NSS) 2 FLUSH IV ×2 (20:27→21:57)
--- NOTE | 2024-12-15 20:34 | PTCARENOTE ---
Pt more awake/alert at this time. Able to pass swallowing test. Given HS PO meds without difficulty. Hephzeba TRIM MOUNTER ordered stat IV Lasix and pt received as ordered. Currently waiting on Potassium gtt. Mouth care provided. Pt unable to cough up
secretions. Will continue to monitor.
[2024-12-15] MEDS: KCL 160 MEQ IV (21:09)
--- NOTE | 2024-12-15 22:23 | PTCARENOTE ---
RT called to pt's room d/t pt desatting into the upper 70's while on BIPAP 15/5/8L. Pt awake. RT deep suctioned pt for moderate amount thick white secretions. O2 order changed to keep POX 89-90%, POX currently 89-90%. Currently resting comfortably.
Will continue to monitor.
--- NOTE | 2024-12-15 23:00 | RESPNOTE ---
Pt appeared to be distressed and struggling with secretions. NT suctioned performed with 14Fr catheter via left nare without complication. Obtained a large amount of thick silverio secretions. Pt cough improved and cleared.
[2024-12-16] VITALS (25 sets, daily range): BP systolic 96–134; BP diastolic 49–91; PULSE 2–71; BMI 29.5
[2024-12-16] MEDS: FLUSH (NSS) 2 FLUSH IV (03:06)
[2024-12-16] MEDS: MAXIPIME 1000 MG IV ×4 (03:06→21:11)
[2024-12-16] MEDS: STERILE WATER FOR INJECTION 10 ML IV ×4 (03:06→21:12)
[2024-12-16 04:16] LABS: Blood Urea Nitrogen 26 mg/dl (9-20); Calcium 8.5 mg/dl (8.4-10.2); Chloride 96 mmol/L (98-107); Estimated Creatinine Clearance 103 ml/min; Glucose 120 mg/dl (70-99); Potassium 3.7 mmol/L (3.5-5.1); Sodium 144 mmol/L (135-145); eGFR > 60.00
[2024-12-16 04:37] LABS: Carbon Dioxide 42 mmol/L (22-30)
[2024-12-16 04:49] LABS: Hematocrit 31.3 % (39.0-52.0); Mean Corp Hgb Conc. 31.9 g/dL (33.0-37.0); Mean Corpuscular Hgb 29.5 pg (27.0-31.0); Mean Corpuscular Volume 92.3 fL (80.0-94.0); Mean Platelet Volume 10.8 fL (7.4-10.4); Platelet Count 185 10^3/uL (130-400); Red Blood Cell Count 3.39 10^6/uL (4.70-6.10); White Blood Cell Count 9.8 10^3/uL (4.8-10.8)
--- NOTE | 2024-12-16 05:33 | PTCARENOTE ---
Pt rested well overnight after deep suctioning and being placed on BIPAP by RT. Received CHG bath this am. Grossly incontinent large amount of yellow urine. Pt cleansed and all linens changed. HR 60's-130's intermittently throughout shift. Afebrile.
No change from previous assessment. AM weight down 3 lbs after receiving IV Lasix earlier in shift. In for CT chest this am. Maintained on Q2hr turns. Call thompson remains within reach. Will continue to monitor.
[2024-12-16] MEDS: PULMICORT 0.5 MG INH ×2 (07:30→20:16)
[2024-12-16] MEDS: DUONEB 3 ML INH ×4 (07:31→20:16)
--- NOTE | 2024-12-16 07:49 | W.PN.HOSP.TC ---
Today's Communication/Plan
-
appreciate consultants
chest CT ordered
ASPHALT STILL OPERATOR Lasix
Assessment / Plan
Assessment / Plan
Mr. Adam Styles is a 74 yo m an with hx COPD, chronic hypoxic respiratory failure on 4L O2, HFpEF, CAD (NSTEMI s/p PCI 2021), HFpEF, essential HTN, HLD, prostate CA, former smoker presents to the ER with change in mentation. Patient was at
[place] point, noted to have somnolence, low oxygen and low blood pressure. He was admitted for sepsis and hypoxic respiratory failure 2/2 pneumonia. Patient remains on high oxygen needs.
CXR 12/12/24
IMPRESSION:
Right greater than left bibasilar opacities, atelectasis versus pneumonia.
LE US 12/12/24
IMPRESSION:
No sonographic evidence for lower extremity venous thrombosis.
TTE 12/13/24:
CONCLUSIONS
Normal left ventricular size and systolic function. No regional wall motion
abnormalities are seen. LV ejection fraction is 60-65% by visual assessment.
Mild concentric left ventricular hypertrophy.
Normal right ventricular size. Normal right ventricular systolic function.
Mild mitral regurgitation.
Mild tricuspid regurgitation. Estimated pulmonary artery pressure of 65 mmHg.
Assuming a right atrial pressure of 3 mmHg.
Compared to prior study dated 08/09/2024, there is no significant change
CXR 12/15/24
FINDINGS/IMPRESSION:
Increased opacity in the right lung base compared to the previous chest radiograph from 12/12/2024 suspicious for pneumonia. Small right pleural fluid is likely present as well. Mild prominence of the pulmonary vascular markings.
Sepsis 2/2 Bilateral Pneumonia
Hypotension responsive to IVF
Acute on Chronic Hypoxic Respiratory Failure
Chronic Hypercapnic Respiratory Failure
Respiratory acidosis with compensatory metabolic alkalosis
-flu and covid negative
-ABG shows compensated respiratory acidosis
-placed on BiPAP in the ER, transitioned to high flow/mid flow on 12/13; weaned down to 8L on 12/14; now on 10L. He requires BiPAP qhs
-Pulmonary consult appreciated
-continue IV Cefepime/Azithro
-MRSA screen negative, - Vanc discontinued
-ASPHALT STILL OPERATOR Budesonide
-standing nebulizers and PRN
-continue Mucinex
-steroid taper per pulm - outpatient records showed prednisone 60mg PO QD, now on 50mg PO QD
-confirmed with patient his FULL CODE status - further discussions to have this admission given his severe COPD
-12/15: repeat CXR with increased opacity right lung base; Chest CT ordered
Heart Failure preserved EF
-TTE 08/09/24 with EF 55%, mild concentric LVH
-on Lasix 60mg PO BID at home
-volume status difficult as presented hypotensive and responsive to fluids; he has CLEMENTINE but with significant LE swelling. given body habitus cannot assess JVP
-s/p 500cc bolus x 2 with improvement in BP; s/p gentle running IVF overnight of admission (discontinued on 12/13)
*ASPHALT STILL OPERATOR oral lasix resumed on 12/14 - stable renal function and blood pressure
-appreciate Cardiology
Hypokalemia
-repleted
Nonischemic myocardial Troponin Elevation
-in setting of hypoxia and sepsis
-no chest pain
-Trop peaked at 1.8. IV Heparin gtt discontinued (nl TTE)
-asa daily
-repeat TTE results above
-appreciate Cardiology
Depression
-ASPHALT STILL OPERATOR Zoloft
Acute Kidney Injury
-resolved with IVF
Essential HTN
-hold ASPHALT STILL OPERATOR Amlodipine
-ASPHALT STILL OPERATOR Metoprolol with hold parameters
CAD with hx PCI
-ASPHALT STILL OPERATOR asa/statin/Metoprolol
DVT PPx Lovenox subQ
FULL CODE - on patient's forms from [place], confirmed on admission
51 minutes spent on patient care
Anticipated Discharge: > 48 hours
Subjective/Interval History
-
Date of Service: December 16, 2024
sleeping with BiPAP on
denies pain
Objective Data
-
Labs:
Laboratory Results
12/16/24 12/16/24
03:17 04:17
WBC Cancelled 9.8
Hgb Cancelled 10.0 L
Hct Cancelled 31.3 L
Plt Count Cancelled 185
Sodium 144
Potassium 3.7
Chloride 96 L
Carbon Dioxide 42 H
BUN 26 H
Creatinine 0.7
Glucose 120 H
Calcium 8.5
Vital Signs:
Vital Signs
Temp Pulse Resp BP Pulse Ox
98.4 F 78 19 122/81 92
12/16/24 03:00 12/16/24 07:34 12/16/24 07:34 12/16/24 06:03 12/16/24 07:34
I&O
12/15/24 12/16/24 12/17/24
06:59 06:59 06:59
Intake Total 980 / 980
Output Total 1200 / 1200 1125 / 1125
Balance -1200 / -1200 -145 / -145
Review of Systems
-
History Source: Patient
All other systems: Reviewed and negative
Physical Exam
-
General: No Apparent Distress and Appears Chronically Ill
HEENT: Normocephalic, Atraumatic and Moist Mucous Membranes
Respiratory: Negative Wheezes
Cardiac: Regular Rhythm
GI: Soft, Nontender and Nondistended
Musculoskeletal: No Clubbing, No Cyanosis, Edema, Right Lower Extrem and Edema, Left Lower Extrem
Neuro: Awake, Alert, Oriented, AO x 3 and Other (tangential)
Psych: Calm
Data Reviewed
-
Diagnostic Radiology: Report Reviewed by me
Labs: Labs Reviewed by me
--- NOTE | 2024-12-16 08:47 | W.PN.CARDCBS ---
Today's Communication / Plan
-
P.o. Lasix
Cardiac status stable
Much of his symptomatology appears to be from parenchymal lung disease
We will follow with you
Impression / Plan
-
Primary Director Of Maternity Services: Dr. Kelley
Assessment:
Presentation with change in mental status
Sepsis
B/L PNA
Acute on chronic hypoxic respiratory failure
Chronic Hypercapnic Respiratory Failure
Elevated troponin, suspected nonischemic myocardial injury
Hypokalemia
CLEMENTINE
Chronic HFpEF
CAD with [place] s/p 3 mm Synergy BENNY to mid to mid-distal LAD and residual 50-60% RCA lesion by cath 12/2021
Severe COPD
Chronic hypoxic respiratory failure on 3-4 L NC continuously
Hypertension
Hyperlipidemia
Obesity
Suspected obstructive sleep apnea
Prostate cancer
History of hematuria
Anxiety
Former smoker
Possible bipolar disorder
Echo 04/09/24: EF 68%, mild LVH, severe PHTN with PAP 67 mmHg, compared to echo 03/2023 no significant change
Echo 08/09/24: EF 55%, TDS, normal LV function, mild LVH, dilated RV with low normal RV sys pressure, mild TR with PASP 65-70 mmHg
ECHO/: EF 60 to 65%, mild concentric LVH, mild MR, mild TR, PAP 65 mmHg, no significant change compared to prior
Plan:
-Patient presented with change in mental status as well as hypoxia and hypotension. noted to have evidence of PNA by CXR. currently on 6L, continue to wean as able
-cardiology consulted as trop peaked at 1.8 and trended down. no CP. has history of CAD with prior LAD stent with residual RCA disease in 2021. EKG SR with PACs and NSSTS. treating as nonischemic myocardial injury in setting of hypoxia and PNA.
-Status post 48 hours of IV heparin, stopped 4/18 AM. continue asa
-continue lipitor
-He is back on p.o. Lopressor 25 mg twice daily for atrial tachycardia
- His pulmonary status appears stable and plateauing
-proBNP in setting of acute CHF last admission was 95586. proBNP this admission 2490. weight also lower than 07/2024 admission. does have B/L LE edema, however suspect multifactorial as also with degree of venous stasis/lymphedema. His lower
extremity findings do appear to be chronic venous stasis. Was on Lasix 60 mg p.o. twice daily prior to admission and we will continue this I suspect he is euvolemic at this point
-Echo without significant change compared to prior, EF preserved
-treatment of PNA/COPD per primary service/pulm
-d/w nursing
- We will follow with you
Progress Note - Director Of Maternity Services
Subjective
Date of Service: December 16, 2024
About the same he tells me
Objective
Labs:
12/16/24 04:17
12/16/24 03:17
Labs
Hgb 10.0 g/dL (13.0-18.0) L 12/16/24 04:17
Hct 31.3 % (39.0-52.0) L 12/16/24 04:17
Plt Count 185 10^3/uL (130-400) 12/16/24 04:17
PT 15.5 Sec (11.4-14.6) H 12/12/24 09:39
INR 1.18 12/12/24 09:39
APTT Cancelled 12/13/24 19:00
Sodium 144 mmol/L (135-145) 12/16/24 03:17
Potassium 3.7 mmol/L (3.5-5.1) 12/16/24 03:17
BUN 26 mg/dl (9-20) H 12/16/24 03:17
Creatinine 0.7 mg/dL (0.7-1.3) 12/16/24 03:17
Glucose 120 mg/dl (70-99) H 12/16/24 03:17
Vital Signs and I&O:
Vital Signs
Temp Pulse Resp BP Pulse Ox
98.4 F 78 19 122/81 92
12/16/24 03:00 12/16/24 07:34 12/16/24 07:34 12/16/24 06:03 12/16/24 07:34
Vital Signs
Temp Pulse Resp BP Pulse Ox
98.4 F 78 19 122/81 92
12/16/24 03:00 12/16/24 07:34 12/16/24 07:34 12/16/24 06:03 12/16/24 07:34
Intake & Output
12/14/24 12/15/24 12/16/24 12/17/24
06:59 06:59 06:59 06:59
Intake Total 1520 / 1520 980 / 980
Output Total 900 / 900 1200 / 1200 1125 / 1125
Balance 620 / 620 -1200 / -1200 -145 / -145
Physical Exam
Physical Exam
����Physical Exam
���������������������General:��no apparent distress, not acutely ill
���������������������������Neck:��supple. no meningeal signs. normal psoterior pharynx
������������������������
���������������������������Heart:��s1/s2 regular rate and rhythm, no murmur. equal radial pulses.
��������������������������Lungs: ��no acute respiratory distress. clear bilaterally
����������������������Abdomen:�normal bowel sounds. not tender. no CVAT
��������������������������Neuro:��alert and oriented. no focal neurological deficits
������������������������������Skin: ��no rash
�����������������������Psychiatric:�well kept. interactive and cooperative
�����������������������Extremities:��no edema. no calf tenderness. negative homans. good distal pulses
��
�
[2024-12-16] MEDS: LASIX 60 MG PO ×2 (09:54→17:30)
[2024-12-16] MEDS: LOW STRENGTH ASPIRIN 81 MG PO (10:02)
[2024-12-16] MEDS: DELTASONE 50 MG PO (10:02)
[2024-12-16] MEDS: LOPRESSOR 25 MG PO ×2 (10:02→21:10)
[2024-12-16] MEDS: AFRIN NASAL SPRAY 2 SPRAYS NASAL ×4 (10:02→21:11)
[2024-12-16] MEDS: ZOLOFT 100 MG PO (10:02)
[2024-12-16] MEDS: CASODEX 50 MG PO (10:02)
[2024-12-16] MEDS: MUCINEX 1200 MG PO ×2 (10:02→21:11)
[2024-12-16] MEDS: ZITHROMAX 500 MG PO (13:01)
--- NOTE | 2024-12-16 16:10 | W.PN.PUL3 ---
Today's Communication / Plan
-
Continue BiPAP with sleep
Continue prednisone with slow taper
Not clear why he was on outpatient 60 mg? Based on this, will likely require slow taper
Continue nebulized therapy
Remains on antibiotics
Cardiology following and recs appreciated
DuoNebs + budesonide
Mucolytics
Diet as per TECHNICAL SERVICE REPRESENTATIVE
Aspiration precautions
Pulmonary service will continue to follow along
Assessment
-
Patient is a 74 year old M with previous history of severe COPD/emphysema, chronic hypoxemia, obesity, suspected RICARDO/OHS (refused testing), noncompliance presenting to ER with change in mental status, hypoxemia per. Presents from [facility],
usually on 4 L. He was placed on noninvasive mechanical ventilation and high flow oxygen in the emergency room. I was consulted on 12/12/2024 for evaluation.
Acute on chronic hypoxic and hypercarbic respiratory failure-change in mental status-requiring noninvasive mechanical ventilation/high flow oxygen
VBG 12/12/2024: 7.51/71/110-likely stable as prior ABG 11/15/2024 was 7.45/71/90
Chest x-ray 12/12/2024: Bibasilar opacities left greater than right.
Possible pneumonia, cannot rule out aspiration
Low-grade fever/no leukocytosis
Negative influenza/negative COVID 12/12/2024
Acute HF exacerbation, proBNP 2490
Medical noncompliance
Advanced COPD/emphysema with chronic hypercapnic and hypoxemic respiratory failure-possibly some degree of acute exacerbation.
Not compliant with oxygen therapy
Declined noninvasive mechanical ventilator in the outpatient setting
Obesity hypoventilation syndrome suspected-chronic hypercapnic respiratory failure appears stable based on VBG from 12/12/2024 per
Conditions present DIRECTOR EXPERIMENTAL MEDICINE:
Coronary disease with history of LAD stent and elevated filling pressures per catheterization December 2021
Noncompliance, refusal of treatment
Severe COPD/emphysema, GOLD IV
FEV1 30%
Follows with Dr. Marte in OP last seen 06/2024 - Saw Delmy MARADIAGA.
Regimen: Pulmicort twice a day/DuoNebs 3-4 times a day/albuterol HFA as needed.
Decline pulmonary embolization in the past
Decline low-dose radiation screening-has not followed through. Most recent CT chest in the hospital 08/15/2024: No lung nodules.
Chronic hypoxemia, on 2-4L
Severe pulm hypertension, PA pressure 70-likely due to chronic hypercapnic respiratory failure/advanced COPD
Echocardiogram 08/09/2024: LVEF 55%. Mild LVH. Dilated right ventricular with low normal RV systolic function. Estimated pulmonary pressure 65-70 mmHg.
Poor compliant with oxygen.
Suspect RICARDO/OHS, never had sleep study/declined testing
He declined therapy 06/2024
Prostate cancer
Incomplete right bundle branch block
Obesity
Prot mirabilis UTI
History of lower extremity cellulitis
Former smoker: Quit at least 2-1/2 years ago. 40+ pack year history
Plan/recommendations:
On 12/15, he was increasingly lethargic as the day went on. As of today (12/16) he is much more awake and alert
Blood gas shows stable chronic hypercapnia
Continue with BiPAP with sleep (15/5cmH2O)
CT chest obtained today (12/16) shows extensive pneumonia in the posterior right upper lobe, RML + right lower lobe with small bilateral pleural effusions with calcification along the pleura suggesting there is a component of chronicity here
Elevated troponin which peaked at 1.8; no longer need to continue trending at this time
Previously on heparin drip which is now stopped as cardiology has low suspicion that he has ischemic myocardial injury in the setting of his hypoxia + pneumonia
Echocardiogram 12/13 with normal biventricular function, PA pressure 65. This is stable per records. Prior echocardiogram with low normal dilated RV function
Doppler negative for DVT bilaterally
Chronic compensated hypercapnia per ABG
CXR 12/12/2024 with bilateral interstitial changes, right pleural effusion/atelectasis
CT chest 08/15/2024 with large pericardial fat pad, emphysema, pleural calcifications and mild interstitial changes, mild right basilar interstitial process
Echocardiogram from 12/13/2024 consistent with severe pulm hypertension, normal biventricular function - no significant changes compared to prior echo on 08/09/2024
Suspect hypoxemia is multifactorial
Continue with broad-spectrum antibiotics, currently on azithromycin, cefepime. Vancomycin discontinued
Follow cultures, leukocytosis
Compensated hypercapnia noted
Continue BiPAP with sleep
When off BiPAP, wean oxygen to target saturation 88-95%
Obtain serial blood gas to assure pH + pCO2 remained stable
Continue nebulizer therapy with Pulmicort + DuoNebs
Did receive Solu-Medrol in the ED-maintain 60 mg daily. No wheezing on exam at this time
Currently on prednisone 50 mg daily (started 12/13/2024) - wean slowly as he clinically improves
Mucolytics with mucinex; antitussants prn
Records suggest he was on 60 mg as outpatient. Not sure what this was for but would require slow taper
Incentive spirometry when able
Acapella device when able
Avoid sedatives
Creatinine improved to 0.7
Increased proBNP to 2490-similar to prior.
Difficult to assess volume status given his obesity
Cardiology following, remains on aspirin, statin + beta-yaz
Continue home dose of Lasix for now
Patient has significant pulmonary hypertension with RV dysfunction-likely to underlying pulmonary disease, poor compliance with oxygen therapy, untreated obesity hypoventilation syndrome and diastolic heart failure
DVT prophylaxis: LMWH
GI prophylaxis: Not indicated
Poor prognosis. Respiratory status is tenuous.
Patient is full code.
As above he has declined to address CODE STATUS in the past
Prior admission conversations:
He understands high risk of readmission and without noninvasive mechanical ventilation.
Multiple extensive discussion with him in the outpatient setting and during this admission.
Patient has repeatedly stated he has no intention to continue BPAP as outpatient: we have discussed hospice but he does not believe he is ill
He does not feel he has any issue with his lungs, he is in 'perfect health.'
He does not wish to change his code status and does not have family/medical POA designation (he says he has no children or siblings, despite sister is contact). He feels he does not need anyone.
He is not ready for hospice despite his level of noncompliance.
Prior conversations:
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
Noted full code status
Will benefit from GOC discussion with family, given his multiple comorbidities and persistent medical noncompliance. He may be at increased risk for prolonged mechanical ventilation and associated complications. In my humble opinion he should be
DNR/DNI.
This was discussed with him and care team on prior visits
unfortunately he has very poor insight
Not much else to offer.
Follow up with Dr. Marte after discharge known to have poor compliance with therapy, unable to afford medications, poor compliant with oxygen, refusing BiPAP, last time seen in June 2024 with SHRUB PLANTER.
Pulmonary service will continue to follow along
Diagnostic Data
CT chest 08/15/2024-no evidence for pulm embolism, moderate to advanced emphysematous lung changes and in the posterior right lower lobe bronchial wall thickening suggesting secretions or mucous plugging.
CXR 08/08/24- Cardiomegaly. Radiographic findings felt to most likely represent pulmonary edema.
CXR 03-31-23 (portable) c/w 01-16-22 (PA/lat): Old films with no infiltrates. Current film slightly lordotic/rotated. R basilar linear atelectasis, mild pulm vasc congestion
PET CT 01-17-23 IMPRESSION: [Marked uptake of activity in the prostate gland suspicious for malignancy.] Extension of malignancy to involve the seminal vesicles cannot be excluded on the basis of this study. Coronary artery calcifications and
sigmoid diverticulosis. Please note, evaluation may be limited with possible false negative results in light of the large volume of activity seen in the prostate gland.
Bilateral Doppler 12/12/2024: Negative for DVT
R leg doppler 03-31-23: negative
TTE 04-01-23 CONCLUSIONS: Normal left ventricular chamber size. Normal left ventricular systolic function. Left ventricular ejection fraction is 55% by visual estimate. Normal regional wall motion. Mild concentric left ventricular hypertrophy. Stage
II diastolic dysfunction suggestive of abnormal relaxation and increased filling pressures. Moderately dilated right ventricle with moderately reduced systolic function. Dilated right atrium. Mild to moderate tricuspid regurgitation. Estimated
pulmonary artery pressure of 70 mmHg assuming a right atrial pressure of 15 mmHg. Compared to prior study dated 01/18/22 which was directly reviewed, LV function was previously hyperdynamic, otherwise no significant change.
Total time spent today was 37 minutes for this encounter. Time includes reviewing laboratory test/imaging results, reviewing pertinent medical records, obtaining and reviewing medical history, performing an appropriate exam, ordering medications,
tests and procedures. Time also includes documentation of this encounter, coordinating patient care and communicating with other healthcare professionals. Total time does not include separately billed tests performed on this date of service.
Subjective Data
-
Date of Service:
Date of Service: December 16, 2024
Chief Complaint: Pulmonary Follow Up
Subjective:
Patient seen and evaluated this morning (late note entry). He is much more awake today and answering questions and speaking to me normally. Heart rate 67, saturating 93% on 5 L/min, and BP 125/62. He still endorses a cough and shortness of
breath. Says he can bring up his phlegm okay. Currently denies chest pain, MORTENSEN, nausea, fevers or chills. He says that he needs his cell phone so that he can make some phone calls as he is not sure if people know he is in the hospital.
Review of Systems
General: Other (Negative unless mentioned above)
Objective Data
Data Reviewed
Vital Signs / I&O / Oxygen:
Vital Signs
Temp Pulse Resp BP Pulse Ox
97.9 F 86 19 126/78 92
12/16/24 07:00 12/16/24 10:02 12/16/24 07:34 12/16/24 10:02 12/16/24 07:34
Intake and Output
12/15/24 12/16/24 12/17/24
06:59 06:59 06:59
Intake Total 980 / 980
Output Total 1200 / 1200 1125 / 1125
Balance -1200 / -1200 -145 / -145
SaO2 92
Nasal Cannula flow liters per 10
minute
Physical Exam
General: Respiratory Distress (n), Comfortable, Chills (n), Sweats (n) and Other (Large neck)
HEENT: Normocephalic, Anicteric and Other (thick neck)
Cardiovascular: Irregular Rhythm (Irregularly irregular), Peripheral Edema (+2 LLE, +1 RLE) and Other (Distant heart sounds bilaterally)
Respiratory: Wheeze (n), Crackles (Bilaterally), Rhonchi (n), Non-Labored Respirations and Other (Decreased breath sounds)
GI: Soft, Non Distended (Obese) and Non Tender
Neurology: Awake, Alert and Tremors (n)
Skin: Warm, Dry, Cyanosis (n), Jaundice (n) and Other (chronic venous stasis dermatitis changes bilaterally)
Labs/Micro/Reports
Lab Data
12/16/24 04:17
12/16/24 03:17
Microbiology
12/12/24 09:55 Blood/Venous Blood Culture - Preliminary
No Growth in 4 days- Final report to follow
12/12/24 09:39 Blood/Venous Blood Culture - Preliminary
No Growth in 4 days- Final report to follow
12/13/24 16:26 Urine Urine Culture - Final
No Significant Growth
12/13/24 16:26 Urine Streptococcus pneumoniae Antigen (M - Final
Negative for Streptococcus pneumoniae antigen.
A negative result does not exclude infection with
Streptococcus pneumoniae. Clinical correlation is
recommended.
12/13/24 16:26 Urine Legionella Urinary Antigen - Final
Negative for Legionella pneumophila Serogroup 1 antigen.
A negative result does not rule out the possiblity of
Legionella infection due to other serogroups or species of
Legionella. Clinical correlation is recommended.
12/12/24 16:42 Nose Nasal Screen MRSA (PCR) - Final
MRSA not detected - performed by PCR methodology.
[2024-12-16] MEDS: LOVENOX 40 MG SC (17:32)
[2024-12-16] MEDS: LIPITOR 20 MG PO (21:11)
[2024-12-16] MEDS: MAXIPIME IV (21:11)
[2024-12-17] VITALS (17 sets, daily range): BP systolic 98–131; BP diastolic 56–96; PULSE 2–73; O2SAT 65; BMI 29.7
--- NOTE | 2024-12-17 02:27 | PTCARENOTE ---
Patient AAOx3, forgetful at times. Initially disoriented to place but easily reoriented. Received pt on 5L MFNC. Pt expressed dislike for the BiPAP, after some education and communication pt agreeable to BiPAP. RT bedside to further educate pt. RT
placed pt on BiPAP, pt tolerating thus far. NSR-ST on the monitor. HR 70's-110's. Pt grossly incontinent of urine but states he usually 'walks to and from the bathroom at home'. PT/OT consult in and reinforced this to the pt. Full G bath and bed
change. Pt tolerating frequent turning and repositioning. Call thompson remains within reach.
[2024-12-17] MEDS: MAXIPIME 1000 MG IV ×4 (04:12→22:06)
[2024-12-17] MEDS: STERILE WATER FOR INJECTION 10 ML IV ×4 (04:12→22:06)
--- NOTE | 2024-12-17 05:40 | PTCARENOTE ---
This RN as well as a second RN were unable to obtain blood work this AM. This RN paged IV team to attempt a blood draw. IV team unable to obtain lab work this AM. Will page phlebotomy, and pass onto dayshift.
[2024-12-17] MEDS: DUONEB 3 ML INH ×4 (07:28→19:35)
[2024-12-17] MEDS: PULMICORT 0.5 MG INH ×2 (07:28→19:34)
--- NOTE | 2024-12-17 08:33 | W.PN.CARDCBS ---
Addendum entered and electronically signed by Eron Greenberg MD 12/17/24 09:50:
I saw and examined the patient.
The Engraver Copperplate's note was reviewed and I agree with the note.
Comment:
GEN: No distress, awake, Ox3
HEENT: supple, anicteric, mmm
LUNGS: CTA, no wheezes/rales
CV: Reg, S1/S2, 1/6 syst LSB, no gallop
ABD: soft, BS+, NT/ND
EXT: No edema
NEURO: Gross non-focal
SKIN: No rash
Plan:
Slowly improving. Continue to treat COPD/pneumonia.
Would continue Lasix 60 mg p.o. twice daily. Creatinine overall stable.
Echo reviewed which has a preserved ejection fraction and mild valve disease. He does have a history of CAD but for now would treat abnormal troponin is nonischemic myocardial injury and continue supportive care.
Would consider ischemic evaluation as outpatient when he recovers from pneumonia.
Continue aspirin, atorvastatin, and metoprolol
Original Note:
Today's Communication / Plan
-
Continue PO lasix 60mg BID
Continue aspirin, lipitor
HR and BP stable on Lopressor 25mg BID
Wean O2 as able, continue COPD/pneumonia management per pulm/primary service
Impression / Plan
-
Primary Seo Intern: Dr. Kelley
Assessment:
Presentation with change in mental status
Sepsis
B/L PNA
Acute on chronic hypoxic respiratory failure
Chronic Hypercapnic Respiratory Failure
Elevated troponin, suspected nonischemic myocardial injury
Hypokalemia
CLEMENTINE
Chronic HFpEF
CAD with [place] s/p 3 mm Synergy BENNY to mid to mid-distal LAD and residual 50-60% RCA lesion by cath 12/2021
Severe COPD
Chronic hypoxic respiratory failure on 3-4 L NC continuously
Hypertension
Hyperlipidemia
Obesity
Suspected obstructive sleep apnea
Prostate cancer
History of hematuria
Anxiety
Former smoker
Possible bipolar disorder
Echo 04/09/24: EF 68%, mild LVH, severe PHTN with PAP 67 mmHg, compared to echo 03/2023 no significant change
Echo 08/09/24: EF 55%, TDS, normal LV function, mild LVH, dilated RV with low normal RV sys pressure, mild TR with PASP 65-70 mmHg
ECHO 12/13/24: EF 60 to 65%, mild concentric LVH, mild MR, mild TR, PAP 65 mmHg, no significant change compared to prior
Plan:
-Presented with change in mental status. Admitted w/ sepsis due to pneumonia.
-Cardiology consulted due to elevated troponin. Peak 1.8, trending down thereafter. Managing as nonischemic myocardial injury in the setting of sepsis/pneumonia.
-IV heparin stopped 12/14 after 48 hours. Continue aspirin 81mg daily.
-Denies chest pain currently. On BiPAP overnight.
-HR and BP stable. Continue metoprolol tartrate 25mg BID.
-Weight remains stable. Does have LE edema which is felt to be multifactorial w/ venous stasis/lymphedema.
-Continue PO lasix 60mg BID. Creat has been stable. AM labs pending on 12/17.
-Echo 12/13 noted preserved EF with mild MR as noted above.
-Continue management of COPD/pneumonia per primary service/pulm.
-Wean O2 as able.
Progress Note - Seo Intern
Subjective
Date of Service: December 17, 2024
No complaints this AM.
Objective
Labs:
12/16/24 04:17
Labs
Hgb 10.0 g/dL (13.0-18.0) L 12/16/24 04:17
Hct 31.3 % (39.0-52.0) L 12/16/24 04:17
Plt Count 185 10^3/uL (130-400) 12/16/24 04:17
PT 15.5 Sec (11.4-14.6) H 12/12/24 09:39
INR 1.18 12/12/24 09:39
APTT Cancelled 12/13/24 19:00
Sodium 144 mmol/L (135-145) 12/16/24 03:17
Potassium 3.7 mmol/L (3.5-5.1) 12/16/24 03:17
BUN 26 mg/dl (9-20) H 12/16/24 03:17
Creatinine 0.7 mg/dL (0.7-1.3) 12/16/24 03:17
Glucose 120 mg/dl (70-99) H 12/16/24 03:17
Vital Signs and I&O:
Vital Signs
Temp Pulse Resp BP Pulse Ox
97.5 F 62 20 121/73 88
12/17/24 03:33 12/17/24 07:30 12/17/24 07:30 12/17/24 06:00 12/17/24 07:30
Vital Signs
Temp Pulse Resp BP Pulse Ox
97.5 F 62 20 121/73 88
12/17/24 03:33 12/17/24 07:30 12/17/24 07:30 12/17/24 06:00 12/17/24 07:30
Intake & Output
12/15/24 12/16/24 12/17/24 12/18/24
06:59 06:59 06:59 06:59
Intake Total 980 / 980 720 / 720
Output Total 1200 / 1200 1125 / 1125
Balance -1200 / -1200 -145 / -145 720 / 720
Physical Exam
Physical Exam
GEN: No distress, awake, alert, lying in bed
HEENT: supple, anicteric, mmm
LUNGS: Scattered rhonchi
CV: Reg with ectopy, S1/S2, no murmur
EXT: No cyanosis, clubbing. 2+ edema of B/L LE
NEURO: Gross non-focal
SKIN: Warm, pink, dry. No rash
--- NOTE | 2024-12-17 09:03 | W.PN.PUL3 ---
Today's Communication / Plan
-
No new complaints, CO2 is compensated, continue PAP nightly but he has refused use as OP
He is now on prednisone taper, will lower dose to 40mg today, continue at discharge
Lasix PO per cards, ischemic w/u following PNA treatment as OP
Stop abx, completed 5 days of CFP today 12/17
Assess for d/c planning as his overall conditions are unlikely to change
OP Pulm FU arrangements
Assessment
-
Patient is a 74 year old M with previous history of severe COPD/emphysema, chronic hypoxemia, obesity, suspected RICARDO/OHS (refused testing), noncompliance presenting to ER with change in mental status, hypoxemia per. Presents from [facility],
usually on 4 L. He was placed on noninvasive mechanical ventilation and high flow oxygen in the emergency room. I was consulted on 12/12/2024 for evaluation.
Acute on chronic hypoxic and hypercarbic respiratory failure-change in mental status-requiring noninvasive mechanical ventilation/high flow oxygen
VBG 12/12/2024: 7.51/71/110-likely stable as prior ABG 11/15/2024 was 7.45/71/90
Chest x-ray 12/12/2024: Bibasilar opacities left greater than right.
Possible pneumonia, cannot rule out aspiration
Low-grade fever/no leukocytosis
Negative influenza/negative COVID 12/12/2024
Acute HF exacerbation, proBNP 2490
Medical noncompliance
Advanced COPD/emphysema with chronic hypercapnic and hypoxemic respiratory failure-possibly some degree of acute exacerbation.
Not compliant with oxygen therapy
Declined noninvasive mechanical ventilator in the outpatient setting
Obesity hypoventilation syndrome suspected-chronic hypercapnic respiratory failure appears stable based on VBG from 12/12/2024 per
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
Coronary disease with history of LAD stent and elevated filling pressures per catheterization December 2021
Noncompliance, refusal of treatment
Severe COPD/emphysema, GOLD IV
FEV1 30%
Follows with Dr. Marte in OP last seen 06/2024 - Saw Delmy MARADIAGA.
Regimen: Pulmicort twice a day/DuoNebs 3-4 times a day/albuterol HFA as needed.
Decline pulmonary embolization in the past
Decline low-dose radiation screening-has not followed through. Most recent CT chest in the hospital 08/15/2024: No lung nodules.
Chronic hypoxemia, on 2-4L
Severe pulm hypertension, PA pressure 70-likely due to chronic hypercapnic respiratory failure/advanced COPD
Echocardiogram 08/09/2024: LVEF 55%. Mild LVH. Dilated right ventricular with low normal RV systolic function. Estimated pulmonary pressure 65-70 mmHg.
Poor compliant with oxygen.
Suspect RICARDO/OHS, never had sleep study/declined testing
He declined therapy 06/2024
Prostate cancer
Incomplete right bundle branch block
Obesity
Prot mirabilis UTI
History of lower extremity cellulitis
Former smoker: Quit at least 2-1/2 years ago. 40+ pack year history
Plan
On 12/15, he was increasingly lethargic as the day went on. As of today (12/16) he is much more awake and alert
Blood gas shows stable chronic hypercapnia--seems compensated now
Continue with BiPAP with sleep (15/5cmH2O)--reports continued noncompliance
Imaging reviewed--
CXR 12/12/2024 with bilateral interstitial changes, right pleural effusion/atelectasis
CT chest 08/15/2024 with large pericardial fat pad, emphysema, pleural calcifications and mild interstitial changes, mild right basilar interstitial process
CT chest obtained 12/16 shows extensive pneumonia in the posterior right upper lobe, RML + right lower lobe with small bilateral pleural effusions with calcification along the pleura suggesting there is a component of chronicity here
Chronic aspiration could be a contributing issue as well
Elevated troponin which peaked at 1.8; no longer need to continue trending at this time
Previously on heparin drip which is now stopped as cardiology has low suspicion that he has ischemic myocardial injury in the setting of his hypoxia + pneumonia
Doppler negative for DVT bilaterally
Echocardiogram from 12/13/2024 consistent with severe pulm hypertension, normal biventricular function - no significant changes compared to prior echo on 08/09/2024
Suspect hypoxemia is multifactorial
Cards following, maintained on diuresis
Continue with broad-spectrum antibiotics, currently on azithromycin, cefepime
Vancomycin discontinued, CFP completed 5 days (started 12/13)
If no further evidence of infection, would stop abx, competed full course 12/17
Observation off
Follow cultures, leukocytosis
Continue nebulizer therapy with Pulmicort + DuoNebs
Did receive Solu-Medrol in the ED-maintain 60 mg daily. No wheezing on exam at this time
Currently on prednisone 50 mg daily (started 12/13/2024) - wean slowly as he clinically improves/changed to 40mg today
Mucolytics with mucinex; antitussants prn
Records suggest he was on 60 mg as outpatient. Not sure what this was for but would require slow taper
Incentive spirometry when able
Acapella device when able
Avoid sedatives
Creatinine improved to 0.7
Increased proBNP to 2490-similar to prior.
Difficult to assess volume status given his obesity
Cardiology following, remains on aspirin, statin + beta-yaz
Continue home dose of Lasix for now
Patient has significant pulmonary hypertension with RV dysfunction-likely to underlying pulmonary disease, poor compliance with oxygen therapy, untreated obesity hypoventilation syndrome and diastolic heart failure
DVT prophylaxis: LMWH
GI prophylaxis: Not indicated
Poor prognosis. Respiratory status is tenuous.
Patient is full code.
As above he has declined to address CODE STATUS in the past
Prior Discussions
He understands high risk of readmission and without noninvasive mechanical ventilation.
Multiple extensive discussion with him in the outpatient setting and during this admission.
Patient has repeatedly stated he has no intention to continue BPAP as outpatient: we have discussed hospice but he does not believe he is ill
He does not feel he has any issue with his lungs, he is in 'perfect health.'
He does not wish to change his code status and does not have family/medical POA designation (he says he has no children or siblings, despite sister is contact). He feels he does not need anyone.
He is not ready for hospice despite his level of noncompliance.
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
Noted full code status
Will benefit from [facility] discussion with family, given his multiple comorbidities and persistent medical noncompliance. He may be at increased risk for prolonged mechanical ventilation and associated complications. In my humble opinion he should be
DNR/DNI.
This was discussed with him and care team on prior visits, unfortunately he has very poor insight
Not much else to offer.
Follow up with Dr. Marte after discharge known to have poor compliance with therapy, unable to afford medications, poor compliant with oxygen, refusing BiPAP, last time seen in June 2024 with RECORDS ANALYSIS MANAGER.
Diagnostic Data
CT chest 08/15/2024-no evidence for pulm embolism, moderate to advanced emphysematous lung changes and in the posterior right lower lobe bronchial wall thickening suggesting secretions or mucous plugging.
CXR 08/08/24- Cardiomegaly. Radiographic findings felt to most likely represent pulmonary edema.
CXR 03-31-23 (portable) c/w 01-16-22 (PA/lat): Old films with no infiltrates. Current film slightly lordotic/rotated. R basilar linear atelectasis, mild pulm vasc congestion
PET CT 01-17-23 IMPRESSION: [Marked uptake of activity in the prostate gland suspicious for malignancy.] Extension of malignancy to involve the seminal vesicles cannot be excluded on the basis of this study. Coronary artery calcifications and
sigmoid diverticulosis. Please note, evaluation may be limited with possible false negative results in light of the large volume of activity seen in the prostate gland.
Bilateral Doppler 12/12/2024: Negative for DVT
R leg doppler 03-31-23: negative
TTE 04-01-23 CONCLUSIONS: Normal left ventricular chamber size. Normal left ventricular systolic function. Left ventricular ejection fraction is 55% by visual estimate. Normal regional wall motion. Mild concentric left ventricular hypertrophy. Stage
II diastolic dysfunction suggestive of abnormal relaxation and increased filling pressures. Moderately dilated right ventricle with moderately reduced systolic function. Dilated right atrium. Mild to moderate tricuspid regurgitation. Estimated
pulmonary artery pressure of 70 mmHg assuming a right atrial pressure of 15 mmHg. Compared to prior study dated 01/18/22 which was directly reviewed, LV function was previously hyperdynamic, otherwise no significant change.
-----
Total time spent today was 51 minutes for this encounter. Time includes reviewing laboratory test/imaging results, reviewing pertinent medical records, obtaining and reviewing medical history, performing an appropriate exam, ordering medications,
tests and procedures. Time also includes documentation of this encounter, coordinating patient care and communicating with other healthcare professionals. Total time does not include separately billed tests performed on this date of service.
Subjective Data
-
Date of Service:
Date of Service: December 17, 2024
Chief Complaint: Pulmonary Follow Up
Subjective:
No new complaints, remains chronically ill appearing but stable
Reports the same level of SOB
Objective Data
Data Reviewed
Vital Signs / I&O / Oxygen:
Vital Signs
Temp Pulse Resp BP Pulse Ox
97.5 F 62 20 121/73 88
12/17/24 03:33 12/17/24 07:30 12/17/24 07:30 12/17/24 06:00 12/17/24 07:30
Intake and Output
12/16/24 12/17/24 12/18/24
06:59 06:59 06:59
Intake Total 980 / 980 720 / 720
Output Total 1125 / 1125
Balance -145 / -145 720 / 720
SaO2 88
Nasal Cannula flow liters per 10
minute
Physical Exam
General: Respiratory Distress (n), Comfortable, Chills (n), Sweats (n) and Other (Chronically ill appearing, obese, deconditioned)
HEENT: Normocephalic, Anicteric, Moist Mucous Membranes and Other (thick neck)
Cardiovascular: S1-S2, Irregular Rhythm (Irregularly irregular), Peripheral Edema (+2 LLE, +1 RLE) and Other (Distant heart sounds bilaterally)
Respiratory: Wheeze (n), Crackles (Bilaterally), Rhonchi (n), Non-Labored Respirations and Other (Decreased breath sounds overally)
GI: Soft, Non Distended (Obese) and Non Tender
Neurology: Awake, Alert, No Motor Deficits, Tremors (n) and Other (deconditioned, weak appearing)
Skin: Warm, Dry, Cyanosis (n), Jaundice (n) and Other (chronic venous stasis dermatitis changes bilaterally)
Labs/Micro/Reports
Lab Data
12/16/24 04:17
Microbiology
12/16/24 13:09 Sputum Gram Stain - Preliminary
12/12/24 09:55 Blood/Venous Blood Culture - Preliminary
No Growth in 4 days- Final report to follow
12/12/24 09:39 Blood/Venous Blood Culture - Preliminary
No Growth in 4 days- Final report to follow
12/13/24 16:26 Urine Urine Culture - Final
No Significant Growth
[2024-12-17] MEDS: AFRIN NASAL SPRAY 2 SPRAYS NASAL ×4 (09:22→20:13)
[2024-12-17] MEDS: MUCINEX 1200 MG PO ×2 (09:23→20:13)
[2024-12-17] MEDS: ZOLOFT 100 MG PO (09:23)
[2024-12-17] MEDS: CASODEX 50 MG PO (09:23)
[2024-12-17] MEDS: LASIX 60 MG PO ×2 (09:23→16:54)
[2024-12-17] MEDS: LOPRESSOR 25 MG PO ×2 (09:23→20:13)
[2024-12-17] MEDS: DELTASONE 50 MG PO (09:23)
[2024-12-17] MEDS: LOW STRENGTH ASPIRIN 81 MG PO (09:24)
--- NOTE | 2024-12-17 12:20 | W.PN.HOSP.TC ---
Today's Communication/Plan
-
Wean oxygen as tolerated
Transfer to telemetry
Plan discharge for tomorrow if stable and consultants agree
Assessment / Plan
Assessment / Plan
Mr. Adam Styles is a 74 yo m an with hx COPD, chronic hypoxic respiratory failure on 4L O2, HFpEF, CAD (NSTEMI s/p PCI 2021), HFpEF, essential HTN, HLD, prostate CA, former smoker presents to the ER with change in mentation. Patient was at
[place], noted to have somnolence, low oxygen and low blood pressure. He was admitted for sepsis and hypoxic respiratory failure 2/2 pneumonia. Patient remains on high oxygen needs.
CXR 12/12/24
IMPRESSION:
Right greater than left bibasilar opacities, atelectasis versus pneumonia.
LE US 12/12/24
IMPRESSION:
No sonographic evidence for lower extremity venous thrombosis.
TTE 12/13/24:
CONCLUSIONS
Normal left ventricular size and systolic function. No regional wall motion
abnormalities are seen. LV ejection fraction is 60-65% by visual assessment.
Mild concentric left ventricular hypertrophy.
Normal right ventricular size. Normal right ventricular systolic function.
Mild mitral regurgitation.
Mild tricuspid regurgitation. Estimated pulmonary artery pressure of 65 mmHg.
Assuming a right atrial pressure of 3 mmHg.
Compared to prior study dated 08/09/2024, there is no significant change
CXR 12/15/24
FINDINGS/IMPRESSION:
Increased opacity in the right lung base compared to the previous chest radiograph from 12/12/2024 suspicious for pneumonia. Small right pleural fluid is likely present as well. Mild prominence of the pulmonary vascular markings.
CT chest 12/16/2024-pneumonia in the right lung greatest in the right lower lobe. Small bilateral pleural effusions. Moderate centrilobular emphysema. Cardiomegaly. Severe coronary artery calcifications
Plan
On examination awake and alert
On oxygen
Cardiovascular system S1-S2 appreciated
Few rales bilateral chest
Mild pedal edema bilaterally
#Sepsis 2/2 Bilateral Pneumonia
Hypotension responsive to IVF
Acute on Chronic Hypoxic Respiratory Failure
Chronic Hypercapnic Respiratory Failure
Respiratory acidosis with compensatory metabolic alkalosis
-Flu and covid negative
-ABG shows compensated respiratory acidosis
-placed on BiPAP in the ER, transitioned to high flow/mid flow on 12/13; weaned down to 8L on 12/14; now on 4L. He requires BiPAP QHS
-Continue IV Cefepime/Azithro
-MRSA screen negative, - Vanc discontinued
-Sputum cultures with yeast no other organism
-DIRECTOR MARKETING Budesonide
-Standing nebulizers and PRN
-Continue Mucinex
-Steroid taper per pulm - outpatient records showed prednisone 60mg PO QD, now on 50mg PO QD
-CT chest with severe right lower lobe pneumonia
-Speech evaluation noted and appreciated. No evidence of dysphagia. Continue regular solids and thin liquids
# Heart Failure preserved EF
-TTE 08/09/24 with EF 55%, mild concentric LVH
-On Lasix 60mg PO BID at home
-Volume status difficult as presented hypotensive and responsive to fluids; he has CLEMENTINE but with significant LE swelling.
-s/p 500cc bolus x 2 with improvement in BP
-DIRECTOR MARKETING oral Lasix resumed on 12/14 - stable renal function and blood pressure
-Appreciate Cardiology
# Nonischemic myocardial Troponin Elevation in setting of hypoxia and sepsis
Coronary artery calcification
CAD with hx PCI
-DIRECTOR MARKETING asa/statin/Metoprolol
-No chest pain
-Trop peaked at 1.8. IV Heparin gtt discontinued (nl TTE)
-Asa daily
-Repeat TTE results above
-Outpatient cardiology follow-up
# Hypokalemia -repleted
# Depression-DIRECTOR MARKETING Zoloft
# Anemia-likely anemia of chronic disease
# Microscopic hematuria
# Acute Kidney Injury -resolved with IVF
# Essential HTN
-Hold DIRECTOR MARKETING Amlodipine
-DIRECTOR MARKETING Metoprolol with hold parameters
# Ex Smoker
#DVT PPx Lovenox subQ
#FULL CODE - on patient's forms from [place], confirmed by Dr Moreno on admission
Would consider ischemic evaluation as outpatient when he recovers from pneumonia.
Discussed with nursing at bedside
Discussed with pulmonary
Discussed with case management
Called patient's sister and updated regarding dion
Case management patient has BiPAP and oxygen in place at [facility]
Time spent over 50 min
Anticipated Discharge: Within 24 hours
Subjective/Interval History
-
Date of Service: December 17, 2024
Objective Data
-
Vital Signs:
Vital Signs
Temp Pulse Resp BP Pulse Ox
97.8 F 76 20 127/94 93
12/17/24 07:05 12/17/24 11:39 12/17/24 11:39 12/17/24 11:00 12/17/24 11:39
I&O
12/16/24 12/17/24 12/18/24
06:59 06:59 06:59
Intake Total 980 / 980 720 / 720
Output Total 1125 / 1125
Balance -145 / -145 720 / 720
--- NOTE | 2024-12-17 12:50 | CM ---
Patient from [facility] with Dx Sepsis 2/2 Bilateral Pneumonia. O2 4L midflow, BiPAP. Receiving IV/PO Abx. Seen by wound care nurse. Per nurse forgetful.
Spoke with Juanita, [facility];
relayed that our MD asked for clarification of his baseline O2 - per Juanita patient was on O2 2-3L however patient increases his O2 liter flow to higher as he wishes, despite staff educating him not to do that---> message relayed to David Patton and
Nicolette.
[facility] is asking if we can mandate that he take a shower here as he refuses to do so at [facility] and had to be placed in a private room because of it---> info relayed to nurse January who responded that he won�t take a shower however nurse just washed him and
he shaved.
[facility]: The ph for report [phone], fax [phone].
Plan contact patient's sister Camila prior to d/c.
Plan probable return to [facility] tomorrow.
[2024-12-17] MEDS: ZITHROMAX 500 MG PO (13:13)
[2024-12-17 16:49] LABS: Blood Urea Nitrogen 34 mg/dl (9-20); Calcium 8.6 mg/dl (8.4-10.2); Carbon Dioxide 40 mmol/L (22-30); Chloride 90 mmol/L (98-107); Estimated Creatinine Clearance 90 ml/min; Glucose 274 mg/dl (70-99); Iron 29 ug/dl (49-181); Magnesium 1.9 mg/dl (1.6-2.3); Potassium 4.1 mmol/L (3.5-5.1); Sodium 137 mmol/L (135-145); eGFR > 60.00
[2024-12-17 16:53] LABS: Vitamin D, 25-OH*** < 12.8 ng/mL (30-80)
[2024-12-17 16:57] LABS: Percent Saturation 11 % (20-50); Total Iron Binding Capacity 249 ug/dl (261-462)
[2024-12-17] MEDS: LOVENOX 40 MG SC (17:00)
[2024-12-17 17:26] LABS: Vitamin B12 378 pg/ml (239-931)
[2024-12-17] MEDS: LIPITOR 20 MG PO (20:14)
--- NOTE | 2024-12-17 23:13 | PTCARENOTE ---
Received patient in the chair at change of shift. Pt required assistance of x3 people and a R.W to get from chair back to bed. Pt struggling to stand up and took multiple attempts. Pt tachypneic and dyspneic with exertion. Pt disoriented to place.
Pt on 5L NC SpO2 95%. Educated pt on wearing the BiPAP overnight, pt refusing to wear it tonight despite education from this RN and RT. RT bedside. Pt has a strong moist productive cough. Pt incontinent of urine. Moisture barrier generously to groin
and buttocks. Call thompson within reach.
[2024-12-18] VITALS (17 sets, daily range): BP systolic 93–130; BP diastolic 52–75; PULSE 2–81; BMI 29.9
[2024-12-18] MEDS: STERILE WATER FOR INJECTION 10 ML IV ×2 (03:53→09:40)
[2024-12-18] MEDS: MAXIPIME 1000 MG IV ×2 (03:54→09:41)
[2024-12-18 06:02] LABS: Blood Urea Nitrogen 31 mg/dl (9-20); Calcium 8.5 mg/dl (8.4-10.2); Chloride 93 mmol/L (98-107); Estimated Creatinine Clearance 120 ml/min; Glucose 89 mg/dl (70-99); Potassium 3.9 mmol/L (3.5-5.1); Sodium 140 mmol/L (135-145); eGFR > 60.00
[2024-12-18 06:13] LABS: Carbon Dioxide 40 mmol/L (22-30)
[2024-12-18] MEDS: DUONEB 3 ML INH ×4 (07:28→19:25)
[2024-12-18] MEDS: PULMICORT 0.5 MG INH ×2 (07:28→19:25)
--- NOTE | 2024-12-18 08:58 | W.PN.CARDCBS ---
Addendum entered and electronically signed by Eron Greenberg MD 12/18/24 12:48:
I saw and examined the patient.
The Rubber Printing Machine Operator's note was reviewed and I agree with the note.
Comment:
GEN: No distress, awake, Ox3
HEENT: supple, anicteric, mmm
LUNGS: CTA, no wheezes/rales
CV: Reg, S1/S2, 1/6 syst LSB, no gallop
ABD: soft, BS+, NT/ND
EXT: No edema
NEURO: Gross non-focal
SKIN: No rash
Plan:
Stable for discharge from cardiology standpoint. Will switch Lopressor to Toprol.
Increase Lasix to 80 mg p.o. twice daily.
Continue medical therapy for coronary artery disease. Continue aspirin, atorvastatin, and Toprol.
Okay for discharge back to facility.
Original Note:
Today's Communication / Plan
-
Change Lopressor to Toprol XL
Increase Lasix to 80 mg PO BID
Cardiology f/u arranged
Impression / Plan
-
Primary E/M Engineer: Dr. Kelley
Assessment:
Presentation with change in mental status 12/12/24
Sepsis
B/L PNA
Acute on chronic hypoxic respiratory failure
Chronic Hypercapnic Respiratory Failure
Elevated troponin, suspected nonischemic myocardial injury
Hypokalemia
CLEMENTINE
Acute on chronic HFpEF
CAD with [place] s/p 3 mm Synergy BENNY to mid to mid-distal LAD and residual 50-60% RCA lesion by cath 12/2021
Severe COPD
Chronic hypoxic respiratory failure on 3-4 L NC continuously
Hypertension
Hyperlipidemia
Obesity
Suspected obstructive sleep apnea
Prostate cancer
History of hematuria
Anxiety
Former smoker
Possible bipolar disorder
Echo 04/09/24: EF 68%, mild LVH, severe PHTN with PAP 67 mmHg, compared to echo 03/2023 no significant change
Echo 08/09/24: EF 55%, TDS, normal LV function, mild LVH, dilated RV with low normal RV sys pressure, mild TR with PASP 65-70 mmHg
ECHO 12/13/24: EF 60 to 65%, mild concentric LVH, mild MR, mild TR, PAP 65 mmHg, no significant change compared to prior
Plan:
-Remains on 5.5 L oxygen and typically uses 4 L NC at long-term [facility], [facility].
-Pulm following as well and patient with long-standing h/o noncompliance and refusal treatment. Patient with chronic, stable hypercapnia.
-Prednisone weaning for AE COPD
-Patient also managed with broad spectrum antibiotics for possible aspiration PNA.
-From a cardiac standpoint, Troponin peaked at 1.8 and was managed as a nonischemic myocardial injury Troponin elevation. Patient with h/o CAD with prior LAD stent with residual RCA disease in 2021. If patient follows up in the office as recommended
then we will evaluate for outpatient stress test. No WMA on echo and no acute ischemic changes on ECG.
-Outpatient dose of aspirin 81 mg daily has been continued
-Weight is actually up 4 lbs from admission, but patient is refusing standing weights and all recorded weights are from bed scale so less accurate. Diuresed initially with Lasix 40 mg IV one-time doses and then transitioned to his usual outpatient
dose of Lasix 60 PO BID. Recommend Lasix 80 mg PO BID upon discharge, orders changed by me in active OCT and updated d/c med list.
-EF 60-65%.
-Patient was taking Lopressor 25 mg BID, will transition to Toprol XL 25 mg daily 12/18/24 PM, ordered by me.
-Patient is not chronically on KINDRA/ARB/ARNI, but was previously on lisinopril in 03/2022 and it was stopped due to hypotension.
-Cardiology f/u arranged. Patient is stable for d/c from a cardiac standpoint
Progress Note - E/M Engineer
Subjective
Date of Service: December 18, 2024
He feels fine at rest, he then got upset that he might be d/c'd today, but did not have any increase in SOB
Objective
Labs:
12/16/24 04:17
12/18/24 05:34
Labs
Hgb 10.0 g/dL (13.0-18.0) L 12/16/24 04:17
Hct 31.3 % (39.0-52.0) L 12/16/24 04:17
Plt Count 185 10^3/uL (130-400) 12/16/24 04:17
PT 15.5 Sec (11.4-14.6) H 12/12/24 09:39
INR 1.18 12/12/24 09:39
APTT Cancelled 12/13/24 19:00
Sodium 140 mmol/L (135-145) 12/18/24 05:34
Potassium 3.9 mmol/L (3.5-5.1) 12/18/24 05:34
BUN 31 mg/dl (9-20) H 12/18/24 05:34
Creatinine 0.6 mg/dL (0.7-1.3) L 12/18/24 05:34
Glucose 89 mg/dl (70-99) 12/18/24 05:34
Vital Signs and I&O:
Vital Signs
Temp Pulse Resp BP Pulse Ox
98.1 F 78 25 105/57 93
12/18/24 04:38 12/18/24 08:00 12/18/24 08:00 12/18/24 08:00 12/18/24 08:20
Vital Signs
Temp Pulse Resp BP Pulse Ox
98.1 F 78 25 105/57 93
12/18/24 04:38 12/18/24 08:00 12/18/24 08:00 12/18/24 08:00 12/18/24 08:20
Intake & Output
12/16/24 12/17/24 12/18/24 04/23/25
06:59 06:59 06:59 06:59
Intake Total 980 / 980 720 / 720 600 / 600
Output Total 1125 / 1125 200 / 200
Balance -145 / -145 720 / 720 400 / 400
Physical Exam
Physical Exam
GEN: NAD. Awake and alert
HEENT: EOMI
LUNGS: 5.5 L NC. No audible wheeze
CV: SR on tele
ABD: ND
EXT: +1 B/L LE edema.
NEURO: Gross non-focal
SKIN: No rash
--- NOTE | 2024-12-18 09:07 | W.PN.PUL3 ---
Addendum entered and electronically signed by Kacy Will DO 12/19/24 13:08:
Discharge planning is noted per care team
We will sign off at this time, pls call with questions
Original Note:
Today's Communication / Plan
-
Remains clinically unchanged, on 5L NC satting >90%
He remains noncompliant with PAP and will not resume this at home
He understands the risks of his noncompliance but refuses to acknowledge it
Medically cleared from my standpoint for discharge
We will arrange OP FU
Assessment
-
Patient is a 74 year old M with previous history of severe COPD/emphysema, chronic hypoxemia, obesity, suspected RICARDO/OHS (refused testing), noncompliance presenting to ER with change in mental status, hypoxemia per. Presents from [facility],
usually on 4 L. He was placed on noninvasive mechanical ventilation and high flow oxygen in the emergency room. I was consulted on 12/12/2024 for evaluation.
Acute on chronic hypoxic and hypercarbic respiratory failure-change in mental status-requiring noninvasive mechanical ventilation/high flow oxygen
VBG 12/12/2024: 7.51/71/110-likely stable as prior ABG 11/15/2024 was 7.45/71/90
Chest x-ray 12/12/2024: Bibasilar opacities left greater than right.
Possible pneumonia, cannot rule out aspiration
Low-grade fever/no leukocytosis
Negative influenza/negative COVID 12/12/2024
Acute HF exacerbation, proBNP 2490
Medical noncompliance
Advanced COPD/emphysema with chronic hypercapnic and hypoxemic respiratory failure-possibly some degree of acute exacerbation.
Not compliant with oxygen therapy
Declined noninvasive mechanical ventilator in the outpatient setting
Obesity hypoventilation syndrome suspected-chronic hypercapnic respiratory failure appears stable based on VBG from 12/12/2024 per
Conditions present CLIENT PROFESSIONAL:
Coronary disease with history of LAD stent and elevated filling pressures per catheterization December 2021
Noncompliance, refusal of treatment
Severe COPD/emphysema, GOLD IV
FEV1 30%
Follows with Dr. Marte in OP last seen 06/2024 - Saw Delmy MARADIAGA.
Regimen: Pulmicort twice a day/DuoNebs 3-4 times a day/albuterol HFA as needed.
Decline pulmonary embolization in the past
Decline low-dose radiation screening-has not followed through. Most recent CT chest in the hospital 08/15/2024: No lung nodules.
Chronic hypoxemia, on 2-4L
Severe pulm hypertension, PA pressure 70-likely due to chronic hypercapnic respiratory failure/advanced COPD
Echocardiogram 08/09/2024: LVEF 55%. Mild LVH. Dilated right ventricular with low normal RV systolic function. Estimated pulmonary pressure 65-70 mmHg.
Poor compliant with oxygen.
Suspect RICARDO/OHS, never had sleep study/declined testing
He declined therapy 06/2024
Prostate cancer
Incomplete right bundle branch block
Obesity
Prot mirabilis UTI
History of lower extremity cellulitis
Former smoker: Quit at least 2-1/2 years ago. 40+ pack year history
Plan
Currently 93% on 5L NC (baseline use 4-5L)
Blood gas shows stable chronic hypercapnia--seems compensated now
Continue with BiPAP with sleep (15/5cmH2O)--reports continued noncompliance
Imaging reviewed--
CXR 12/12/2024 with bilateral interstitial changes, right pleural effusion/atelectasis
CT chest 08/15/2024 with large pericardial fat pad, emphysema, pleural calcifications and mild interstitial changes, mild right basilar interstitial process
CT chest obtained 12/16 shows extensive pneumonia in the posterior right upper lobe, RML + right lower lobe with small bilateral pleural effusions with calcification along the pleura suggesting there is a component of chronicity here
Chronic aspiration could be a contributing issue as well
Elevated troponin which peaked at 1.8; no longer need to continue trending at this time
Previously on heparin drip which is now stopped as cardiology has low suspicion that he has ischemic myocardial injury in the setting of his hypoxia + pneumonia
Doppler negative for DVT bilaterally
Echocardiogram from 12/13/2024 consistent with severe pulm hypertension, normal biventricular function - no significant changes compared to prior echo on 08/09/2024
Suspect hypoxemia is multifactorial
Cards following, maintained on diuresis
Continue with broad-spectrum antibiotics, currently on azithromycin, cefepime
Vancomycin discontinued, CFP completed 5 days (started 12/13)
If no further evidence of infection, would stop abx, competed full course 12/17
Observation off
Follow cultures, leukocytosis
Continue nebulizer therapy with Pulmicort + DuoNebs
Did receive Solu-Medrol in the ED-maintain 60 mg daily. No wheezing on exam at this time
Currently on prednisone 50 mg daily (started 12/13/2024) - wean slowly as he clinically improves/changed to 40mg today
Mucolytics with mucinex; antitussants prn
Records suggest he was on 60 mg as outpatient. Not sure what this was for but would require slow taper
Incentive spirometry when able
Acapella device when able
Avoid sedatives
Creatinine improved to 0.7
Increased proBNP to 2490-similar to prior.
Difficult to assess volume status given his obesity
Cardiology following, remains on aspirin, statin + beta-yaz
Continue home dose of Lasix for now
Patient has significant pulmonary hypertension with RV dysfunction-likely to underlying pulmonary disease, poor compliance with oxygen therapy, untreated obesity hypoventilation syndrome and diastolic heart failure
DVT prophylaxis: LMWH
GI prophylaxis: Not indicated
Poor prognosis. Respiratory status is tenuous.
Patient is full code.
As above he has declined to address CODE STATUS in the past
Prior Discussions
He understands high risk of readmission and without noninvasive mechanical ventilation.
Multiple extensive discussion with him in the outpatient setting and during this admission.
Patient has repeatedly stated he has no intention to continue BPAP as outpatient: we have discussed hospice but he does not believe he is ill
He does not feel he has any issue with his lungs, he is in 'perfect health.'
He does not wish to change his code status and does not have family/medical POA designation (he says he has no children or siblings, despite sister is contact). He feels he does not need anyone.
He is not ready for hospice despite his level of noncompliance.
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
Noted full code status
Will benefit from [facility] discussion with family, given his multiple comorbidities and persistent medical noncompliance. He may be at increased risk for prolonged mechanical ventilation and associated complications. In my humble opinion he should be
DNR/DNI.
This was discussed with him and care team on prior visits, unfortunately he has very poor insight
Not much else to offer.
Follow up with Dr. Marte after discharge known to have poor compliance with therapy, unable to afford medications, poor compliant with oxygen, refusing BiPAP, last time seen in June 2024 with [facility].
Diagnostic Data
CT chest 08/15/2024-no evidence for pulm embolism, moderate to advanced emphysematous lung changes and in the posterior right lower lobe bronchial wall thickening suggesting secretions or mucous plugging.
CXR 08/08/24- Cardiomegaly. Radiographic findings felt to most likely represent pulmonary edema.
CXR 03-31-23 (portable) c/w 01-16-22 (PA/lat): Old films with no infiltrates. Current film slightly lordotic/rotated. R basilar linear atelectasis, mild pulm vasc congestion
PET CT 01-17-23 IMPRESSION: [Marked uptake of activity in the prostate gland suspicious for malignancy.] Extension of malignancy to involve the seminal vesicles cannot be excluded on the basis of this study. Coronary artery calcifications and
sigmoid diverticulosis. Please note, evaluation may be limited with possible false negative results in light of the large volume of activity seen in the prostate gland.
Bilateral Doppler 12/12/2024: Negative for DVT
R leg doppler 03-31-23: negative
TTE 04-01-23 CONCLUSIONS: Normal left ventricular chamber size. Normal left ventricular systolic function. Left ventricular ejection fraction is 55% by visual estimate. Normal regional wall motion. Mild concentric left ventricular hypertrophy. Stage
II diastolic dysfunction suggestive of abnormal relaxation and increased filling pressures. Moderately dilated right ventricle with moderately reduced systolic function. Dilated right atrium. Mild to moderate tricuspid regurgitation. Estimated
pulmonary artery pressure of 70 mmHg assuming a right atrial pressure of 15 mmHg. Compared to prior study dated 01/18/22 which was directly reviewed, LV function was previously hyperdynamic, otherwise no significant change.
-----
Total time spent today was 41 minutes for this encounter. Time includes reviewing laboratory test/imaging results, reviewing pertinent medical records, obtaining and reviewing medical history, performing an appropriate exam, ordering medications,
tests and procedures. Time also includes documentation of this encounter, coordinating patient care and communicating with other healthcare professionals. Total time does not include separately billed tests performed on this date of service.
Subjective Data
-
Date of Service:
Date of Service: December 18, 2024
Chief Complaint: Pulmonary Follow Up
Subjective:
Remains clinically unchanged
No new complaints
Objective Data
Data Reviewed
Vital Signs / I&O / Oxygen:
Vital Signs
Temp Pulse Resp BP Pulse Ox
98.1 F 78 25 105/57 93
12/18/24 04:38 12/18/24 08:00 12/18/24 08:00 12/18/24 08:00 12/18/24 08:20
Intake and Output
12/17/24 12/18/24 12/19/24
06:59 06:59 06:59
Intake Total 720 / 720 600 / 600
Output Total 200 / 200
Balance 720 / 720 400 / 400
SaO2 93
Nasal Cannula flow liters per 5
minute
Physical Exam
General: Respiratory Distress (n), Comfortable, Chills (n), Sweats (n) and Other (Chronically ill appearing, obese, deconditioned)
HEENT: Normocephalic, Anicteric, Moist Mucous Membranes and Other (thick neck)
Cardiovascular: S1-S2, Irregular Rhythm (Irregularly irregular), Peripheral Edema (+2 LLE, +1 RLE) and Other (Distant heart sounds bilaterally)
Respiratory: Wheeze (n), Crackles (Bilaterally), Rhonchi (n), Non-Labored Respirations and Other (Decreased breath sounds overally)
GI: Soft, Non Distended (Obese) and Non Tender
Neurology: Awake, Alert, No Motor Deficits, Tremors (n) and Other (deconditioned, weak appearing)
Skin: Warm, Dry, Cyanosis (n), Jaundice (n) and Other (chronic venous stasis dermatitis changes bilaterally)
Labs/Micro/Reports
Lab Data
12/16/24 04:17
12/18/24 05:34
Microbiology
12/16/24 13:09 Sputum Respiratory Culture - Preliminary
Yeast
12/16/24 13:09 Sputum Gram Stain - Preliminary
12/12/24 09:55 Blood/Venous Blood Culture - Final
No Growth - Final Report
12/12/24 09:39 Blood/Venous Blood Culture - Final
No Growth - Final Report
[2024-12-18] MEDS: MUCINEX 1200 MG PO ×2 (09:35→20:49)
[2024-12-18] MEDS: CASODEX 50 MG PO (09:35)
[2024-12-18] MEDS: ASPIR LOW (ENTERIC COATED) 81 MG PO (09:36)
[2024-12-18] MEDS: DELTASONE 40 MG PO (09:36)
[2024-12-18] MEDS: AFRIN NASAL SPRAY 2 SPRAYS NASAL ×4 (09:36→21:26)
[2024-12-18] MEDS: ZOLOFT 100 MG PO (09:37)
[2024-12-18] MEDS: DRISDOL (VITAMIN D2) 50000 UNITS PO (09:37)
[2024-12-18] MEDS: LOPRESSOR PO (09:38)
[2024-12-18] MEDS: LASIX PO (09:39)
--- NOTE | 2024-12-18 10:11 | W.PN.HOSP.TC ---
Addendum entered and electronically signed by Alida Patton MD 12/18/24 10:22:
Suspected sleep apnea-patient is agreeable for BiPAP and has 1 set up at the rehab
Obesity
Pulmonary hypertension
History of prostate cancer on bicalutamide
Original Note:
Today's Communication/Plan
-
Patient's oxygen levels are not documented right.
Waveform does not match the pulse.
Pulse ox needs to be checked and oxygen readjusted
If patient is on 4 or below oxygen will discharge today
If requiring more than that will not discharge.
Assessment / Plan
Assessment / Plan
Mr. Adam Styles is a 74 yo m an with hx COPD, chronic hypoxic respiratory failure on 4L O2, HFpEF, CAD (NSTEMI s/p PCI 2021), HFpEF, essential HTN, HLD, prostate CA, former smoker presents to the ER with change in mentation. Patient was at
[place] [facility], noted to have somnolence, low oxygen and low blood pressure. He was admitted for sepsis and hypoxic respiratory failure 2/2 pneumonia. Patient remains on high oxygen needs.
CXR 12/12/24
IMPRESSION:
Right greater than left bibasilar opacities, atelectasis versus pneumonia.
LE US 12/12/24
IMPRESSION:
No sonographic evidence for lower extremity venous thrombosis.
TTE 12/13/24:
CONCLUSIONS
Normal left ventricular size and systolic function. No regional wall motion
abnormalities are seen. LV ejection fraction is 60-65% by visual assessment.
Mild concentric left ventricular hypertrophy.
Normal right ventricular size. Normal right ventricular systolic function.
Mild mitral regurgitation.
Mild tricuspid regurgitation. Estimated pulmonary artery pressure of 65 mmHg.
Assuming a right atrial pressure of 3 mmHg.
Compared to prior study dated 08/09/2024, there is no significant change
CXR 12/15/24
FINDINGS/IMPRESSION:
Increased opacity in the right lung base compared to the previous chest radiograph from 12/12/2024 suspicious for pneumonia. Small right pleural fluid is likely present as well. Mild prominence of the pulmonary vascular markings.
CT chest 12/16/2024-pneumonia in the right lung greatest in the right lower lobe. Small bilateral pleural effusions. Moderate centrilobular emphysema. Cardiomegaly. Severe coronary artery calcifications
Plan
On examination awake and alert
On oxygen
Cardiovascular system S1-S2 appreciated
Few rales bilateral chest
Mild pedal edema bilaterally
#Sepsis 2/2 Bilateral Pneumonia
Hypotension responsive to IVF
Acute on Chronic Hypoxic Respiratory Failure
Chronic Hypercapnic Respiratory Failure
Respiratory acidosis with compensatory metabolic alkalosis
-Flu and covid negative
-ABG shows compensated respiratory acidosis
-placed on BiPAP in the ER, transitioned to high flow/mid flow on 12/13; weaned down to 8L on 12/14; now on 4L. He requires BiPAP QHS
-Continue IV Cefepime/Azithro- Can stop after today.
-MRSA screen negative, - Vanc discontinued
-Sputum cultures with yeast no other organism
-PLANT MAINTENANCE TECHNICIAN Budesonide
-Standing nebulizers and PRN
-Continue Mucinex
-Steroid taper per pulm - outpatient records showed prednisone 60mg PO QD, now on 40mg PO QD
-CT chest with severe right lower lobe pneumonia
-Speech evaluation noted and appreciated. No evidence of dysphagia. Continue regular solids and thin liquids
# Heart Failure preserved EF
-TTE 08/09/24 with EF 55%, mild concentric LVH
-On Lasix 60mg PO BID at home
-Volume status difficult as presented hypotensive and responsive to fluids; he has CLEMENTINE but with significant LE swelling.
-s/p 500cc bolus x 2 with improvement in BP
-PLANT MAINTENANCE TECHNICIAN oral Lasix resumed on 12/14 - stable renal function and blood pressure
-Appreciate Cardiology
# Nonischemic myocardial Troponin Elevation in setting of hypoxia and sepsis
Coronary artery calcification
CAD with hx PCI
-PLANT MAINTENANCE TECHNICIAN asa/statin/Metoprolol
-No chest pain
-Trop peaked at 1.8. IV Heparin gtt discontinued (nl TTE)
-Asa daily
-Repeat TTE results above
-Outpatient cardiology follow-up
# Hypokalemia -repleted
# Depression-PLANT MAINTENANCE TECHNICIAN Zoloft
# Anemia-likely anemia of chronic disease
# Microscopic hematuria
# Acute Kidney Injury -resolved with IVF
# Essential HTN
-Hold PLANT MAINTENANCE TECHNICIAN Amlodipine
-PLANT MAINTENANCE TECHNICIAN Metoprolol with hold parameters
# Ex Smoker
#DVT PPx Lovenox subQ
#FULL CODE - on patient's forms from [place], confirmed by Dr Moreno on admission
Would consider ischemic evaluation as outpatient when he recovers from pneumonia.
Discussed with nursing at bedside
Discussed with Cards
Discussed with case management
Called patient's sister and updated regarding plan 12/17/24.
Case management patient has BiPAP and oxygen in place at half-way
Anticipated Discharge: Today
Subjective/Interval History
-
Date of Service: December 18, 2024
Objective Data
-
Labs:
Laboratory Results
12/18/24
05:34
Sodium 140
Potassium 3.9
Chloride 93 L
Carbon Dioxide 40 H
BUN 31 H
Creatinine 0.6 L
Glucose 89
Calcium 8.5
Vital Signs:
Vital Signs
Temp Pulse Resp BP Pulse Ox
98.2 F 76 20 105/57 92
12/18/24 09:34 12/18/24 09:34 12/18/24 09:34 12/18/24 08:00 12/18/24 09:46
I&O
12/17/24 12/18/24 12/19/24
06:59 06:59 06:59
Intake Total 720 / 720 600 / 600 240 / 240
Output Total 200 / 200
Balance 720 / 720 400 / 400 240 / 240
--- NOTE | 2024-12-18 10:34 | PTCARENOTE ---
Report called to receiving 3 west RN
[2024-12-18] MEDS: TOPROL XL 25 MG PO (10:57)
[2024-12-18] MEDS: LASIX 80 MG PO ×2 (10:57→16:09)
[2024-12-18] MEDS: ZITHROMAX 500 MG PO (12:31)
[2024-12-18] MEDS: FERRLECIT 110 MG IV (14:32)
--- NOTE | 2024-12-18 16:22 | PTCARENOTE ---
1212 Pt received from IMU via stretcher [id number]. Pt reoriented to time. Pt transferred from stretcher to bed with assist of three staff members and use of transferred sheet. Pt oriented to staff, environment and call light system. Bed alarm armed
and audible. Oxygen at 5 liters via mid flow. KLEIN noted. Pt placed on telemetry and all needs met.
[2024-12-18] MEDS: LOVENOX 40 MG SC (17:30)
[2024-12-18] MEDS: LIPITOR 20 MG PO (21:25)
--- NOTE | 2024-12-19 00:30 | PTCARENOTE ---
Patient removed BiPAP. Educated pt on wearing the BiPAP overnight, pt refusing to wear it tonight despite education from this RN. Will continue to monitor.
[2024-12-19 03:00] VITALS: BP 117/50
[2024-12-19 06:00] VITALS: BMI 29.6
[2024-12-19 07:05] VITALS: BP 89/55
[2024-12-19] MEDS: DUONEB 3 ML INH ×2 (07:34→11:59)
[2024-12-19] MEDS: PULMICORT 0.5 MG INH (07:34)
[2024-12-19] MEDS: ASPIR LOW (ENTERIC COATED) 81 MG PO (08:30)
[2024-12-19] MEDS: AFRIN NASAL SPRAY 2 SPRAYS NASAL ×2 (08:30→12:00)
[2024-12-19] MEDS: LASIX 80 MG PO (08:31)
[2024-12-19] MEDS: CASODEX 50 MG PO (08:31)
[2024-12-19] MEDS: DELTASONE 40 MG PO (08:31)
[2024-12-19] MEDS: MUCINEX 1200 MG PO (08:32)
[2024-12-19] MEDS: ZOLOFT 100 MG PO (08:32)
[2024-12-19] MEDS: VITAMIN B-12 1000 MCG PO (08:32)
[2024-12-19] MEDS: VITAMIN D3 (cholecalciferol) 50 MCG PO (08:32)
[2024-12-19] MEDS: TOPROL XL PO (08:39)
[2024-12-19 11:05] VITALS: BP 135/64
[2024-12-19] MEDS: ZITHROMAX 500 MG PO (11:56)
--- NOTE | 2024-12-19 13:45 | W.PN.HOSP.TC ---
Today's Communication/Plan
-
Discharge
Assessment / Plan
Assessment / Plan
Mr. Adam Styles is a 74 yo m an with hx COPD, chronic hypoxic respiratory failure on 4L O2, HFpEF, CAD (NSTEMI s/p PCI 2021), HFpEF, essential HTN, HLD, prostate CA, former smoker presents to the ER with change in mentation. Patient was at
[place] [facility], noted to have somnolence, low oxygen and low blood pressure. He was admitted for sepsis and hypoxic respiratory failure 2/2 pneumonia. Patient remains on high oxygen needs.
CXR 12/12/24
IMPRESSION:
Right greater than left bibasilar opacities, atelectasis versus pneumonia.
LE US 12/12/24
IMPRESSION:
No sonographic evidence for lower extremity venous thrombosis.
TTE 12/13/24:
CONCLUSIONS
Normal left ventricular size and systolic function. No regional wall motion
abnormalities are seen. LV ejection fraction is 60-65% by visual assessment.
Mild concentric left ventricular hypertrophy.
Normal right ventricular size. Normal right ventricular systolic function.
Mild mitral regurgitation.
Mild tricuspid regurgitation. Estimated pulmonary artery pressure of 65 mmHg.
Assuming a right atrial pressure of 3 mmHg.
Compared to prior study dated 08/09/2024, there is no significant change
CXR 12/15/24
FINDINGS/IMPRESSION:
Increased opacity in the right lung base compared to the previous chest radiograph from 12/12/2024 suspicious for pneumonia. Small right pleural fluid is likely present as well. Mild prominence of the pulmonary vascular markings.
CT chest 12/16/2024-pneumonia in the right lung greatest in the right lower lobe. Small bilateral pleural effusions. Moderate centrilobular emphysema. Cardiomegaly. Severe coronary artery calcifications
Plan
On examination awake and alert
On oxygen
Cardiovascular system S1-S2 appreciated
Chest CTA
Mild pedal edema bilaterally- much better
#Sepsis 2/2 Bilateral Pneumonia
Hypotension responsive to IVF
Acute on Chronic Hypoxic Respiratory Failure
Chronic Hypercapnic Respiratory Failure
Respiratory acidosis with compensatory metabolic alkalosis
-Flu and covid negative
-ABG shows compensated respiratory acidosis
-placed on BiPAP in the ER, transitioned to high flow/mid flow on 12/13; weaned down to 8L on 12/14; now on 4L. He requires BiPAP QHS
-Continue IV Cefepime/Azithro- Can stop
-Sputum cultures with yeast no other organism
-SEWING SUPERVISOR Budesonide
-Standing nebulizers and PRN
-Continue Mucinex
-Steroid taper per pulm - outpatient records showed prednisone 60mg PO QD, now on 40mg PO QD
-CT chest with severe right lower lobe pneumonia
-Speech evaluation noted and appreciated. No evidence of dysphagia. Continue regular solids and thin liquids
# Heart Failure preserved EF
-TTE 08/09/24 with EF 55%, mild concentric LVH
-On Lasix 60mg PO BID at home
-Volume status difficult as presented hypotensive and responsive to fluids; he has CLEMENTINE but with significant LE swelling.
-s/p 500cc bolus x 2 with improvement in BP
-SEWING SUPERVISOR oral Lasix resumed on 12/14 - stable renal function and blood pressure
-Appreciate Cardiology
# Nonischemic myocardial Troponin Elevation in setting of hypoxia and sepsis
Coronary artery calcification
CAD with hx PCI
-SEWING SUPERVISOR asa/statin/Metoprolol
-No chest pain
-Trop peaked at 1.8. IV Heparin gtt discontinued (nl TTE)
-Asa daily
-Repeat TTE results above
-Outpatient cardiology follow-up
# Hypokalemia -repleted
# Depression-SEWING SUPERVISOR Zoloft
# Anemia-likely anemia of chronic disease
# Microscopic hematuria
# Acute Kidney Injury -resolved with IVF
# Essential HTN
-Hold SEWING SUPERVISOR Amlodipine
-SEWING SUPERVISOR Metoprolol with hold parameters
# Ex Smoker
#DVT PPx Lovenox subQ
#FULL CODE - on patient's forms from [place], confirmed by Dr Moreno on admission
Would consider ischemic evaluation as outpatient when he recovers from pneumonia.
Discussed with nursing at bedside
Discussed with Cards
Called patient's sister and updated regarding plan 12/17/24.
Case management [facility]
Video swallow evaluation noted. No evidence of aspiration
More than 30 minutes spent in discharge including
Final examination of the patient
Summarizing hospital stay
Instructions for continuing care to all relevant caregivers
Preparation of discharge records, prescriptions, and referral forms
Total time spent (in minutes): 37 min
Anticipated Discharge: Today
Subjective/Interval History
-
Date of Service: December 19, 2024
Objective Data
-
Vital Signs:
Vital Signs
Temp Pulse Resp BP Pulse Ox
98.6 F 80 16 135/64 90
12/19/24 11:05 12/19/24 12:03 12/19/24 12:03 12/19/24 11:05 12/19/24 11:05
I&O
12/18/24 12/19/24 12/20/24
06:59 06:59 06:59
Intake Total 600 / 600 450 / 450
Output Total 200 / 200
Balance 400 / 400 450 / 450
[2024-12-19 13:47] VITALS: BP 120/56; PULSE 60; O2SAT 92
--- NOTE | 2024-12-19 13:48 | W.DS.TRANS ---
Addendum entered and electronically signed by Alida Patton MD 12/19/24 15:21:
Dictation- [id number]
Original Note:
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
-
Discharge Instructions:
Discharge Diagnosis/Procedures bilateral pneumonia
Acute on chronic HFpEF
Coronary artery calcification-coronary artery
disease with history of PCI
Hypokalemia
Depression
Anemia
Microscopic hematuria
Acute kidney injury
Hypertension
Ex-smoker
Diet 2 Gram Sodium,Restrict fluids to 64 oz
Activity As tolerated,With assistance
Driving Restrictions No driving
Other Services PT,OT
Specialty Instructions Weigh Daily
Instructions:
Stand-Alone Forms:
Changes to Home Medications: Yes
Discharge Medications:
DC Medications w/original date entered in [employer]
aspirin 81 mg chewable tablet 81 mg PO DAILY Heart disease/condition 30 days #30 tabs 04/01/22
bicalutamide 50 mg tablet 50 mg PO DAILY Cancer 03/31/23
acetaminophen 325 mg tablet 650 mg PO Q4HPRN PRN mild pain/fever 01/31/24
bisacodyl 10 mg rectal suppository 10 mg [place] DAILYPRN PRN if MOM is ineffective after 24 hrs 01/31/24
magnesium hydroxide 400 mg/5 mL oral suspension (Milk of Magnesia) 30 ml PO DAILYPRN PRN constipation 01/31/24
sertraline 50 mg tablet 100 mg PO DAILY Mental Health/Anxiety 01/31/24
atorvastatin 20 mg tablet 20 mg PO HS High Cholesterol 08/08/24
ipratropium 0.5 mg-albuterol 3 mg (2.5 mg base)/3 mL nebulization soln 3 ml inhalation R BID Lung/Breathing Issues 08/09/24
guaifenesin 1,200 mg tablet, extended release 12 hr (Mucinex) 1,200 mg PO BID Congestion 11/15/24
potassium chloride 10 mEq tablet,extended release 20 meq PO DAILY Electrolyte Repletion 11/15/24
sodium phosphates 19 gram-7 gram/118 mL enema (Fleet Enema) 118 ml MN DAILYPRN PRN if dulcolax is ineffective after 24 hrs 11/15/24
oxymetazoline 0.05 % nasal spray 2 spray intranasal QID Allergies 12/12/24
budesonide 0.5 mg/2 mL suspension for nebulization 0.5 mg (2 mL) inhalation R BID Lung/breathing issues #60 mL 12/18/24
cholecalciferol (vitamin D3) 50 mcg (2,000 unit) tablet 50 mcg PO DAILY def #0 tabs 12/18/24
cyanocobalamin (vitamin B-12) 1,000 mcg tablet (Vitamin B-12) 1,000 mcg PO DAILY Supplement #0 tabs 12/18/24
furosemide 80 mg tablet 80 mg PO BID@0800,1600 Heart Failure #60 tabs 12/18/24
ipratropium 0.5 mg-albuterol 3 mg (2.5 mg base)/3 mL nebulization soln 3 ml inhalation R Q4HPRN PRN shortness of breath #0 mL 12/18/24
metoprolol succinate 25 mg tablet,extended release 24 hr 25 mg PO DAILY Heart disease/condition #30 tabs 12/18/24
prednisone 20 mg tablet 40 mg (2 x 20 mg) PO DAILY Anti-Inflammatory #0 tabs 12/18/24
Home Medication Changes
Prednisone taper is new
Dose of metoprolol decreased
Dose of Lasix changed
Pending Results: No
[2024-12-19] MEDS: FERRLECIT 110 MG IV (13:52)
[2024-12-19 14:56] VITALS: BP 100/44
--- NOTE | 2024-12-19 15:22 | CM ---
entered order for discharge.
Spoke with Juanita at [facility] pt accepted back .
Camila sister contacted about dc to [facility].
IMM reviewed with pt , Pt agrees with dc . IMM signed on chart.
Medical nec completed . for ambulance.
[facility]:
report [phone]
fax [phone].
PLAN Return to [facility] SNF
[2024-12-19] MEDS: DUONEB INH (15:26)
== END 2024-12-19 15:42 | DRG 871 ==
LOC: 3 WEST ACU 11:30
PROVIDERS: Internal Medicine Critical Care Medicine; ADMITTING PHYSICIAN Student in an Organized Health Care Education/Training Program; ATTENDING PHYSICIAN Hospitalist; CONSULT PHYSICIAN Internal Medicine Critical Care Medicine; EMERGENCY PHYSICIAN Student in an Organized Health Care Education/Training Program; FAMILY PHYSICIAN Internal Medicine; OTHER PHYSICIAN Internal Medicine Cardiovascular Disease
PROC: 5A09357 Assistance with Respiratory Ventilation, Less than 24 Consecutive Hours, Continuous Positive Airway Pressure (ICD-10-PCS; 2024-12-12)
DX: A41.9 Sepsis, unspecified organism (principal); G93.41 Metabolic encephalopathy; I50.33 Acute on chronic diastolic (congestive) heart failure; J18.9 Pneumonia, unspecified organism; J96.21 Acute and chronic respiratory failure with hypoxia; J44.0 Chronic obstructive pulmonary disease with (acute) lower respiratory infection; N17.9 Acute kidney failure, unspecified; E87.4 Mixed disorder of acid-base balance; E66.2 Morbid (severe) obesity with alveolar hypoventilation; I47.20 Ventricular tachycardia, unspecified; I11.0 Hypertensive heart disease with heart failure; I25.10 Atherosclerotic heart disease of native coronary artery without angina pectoris; E87.6 Hypokalemia; F32.A Depression, unspecified; D64.9 Anemia, unspecified; R31.29 Other microscopic hematuria; F17.200 Nicotine dependence, unspecified, uncomplicated; Z95.5 Presence of coronary angioplasty implant and graft; I25.2 Old myocardial infarction; E78.00 Pure hypercholesterolemia, unspecified; Z85.46 Personal history of malignant neoplasm of prostate; Z11.52 Encounter for screening for COVID-19; F41.9 Anxiety disorder, unspecified; Z68.29 Body mass index [BMI] 29.0-29.9, adult; J43.9 Emphysema, unspecified; Z91.199 Patient's noncompliance with other medical treatment and regimen due to unspecified reason; Z79.51 Long term (current) use of inhaled steroids; E11.65 Type 2 diabetes mellitus with hyperglycemia; Z79.899 Other long term (current) drug therapy; Z79.82 Long term (current) use of aspirin; I27.20 Pulmonary hypertension, unspecified; Z99.81 Dependence on supplemental oxygen; L89.322 Pressure ulcer of left buttock, stage 2; L89.312 Pressure ulcer of right buttock, stage 2
CPT/HCPCS: 93308; 36600; 71045; 71250; 74230; 80048; 80053; 80202; 81003; 81015; 82306; 82570; 82607; 82805; 83540; 83550; 83605; 83735; 83880; 84132; 84300; 84484; 85025; 85027; 85610; 85730; 87040; 87070; 87086; 87205; 87449; 87502; 87641; 87811; 87899; 92526; 92610; 92611; 93005; 93321; 93325; 93970; 94640; 94660; 96361; 96365; 96375; 97163; 97530; 99291; J2916

== ENCOUNTER 2025-02-23 17:51 | Emergency (ER) | payer MEDICARE, OTHER, SELFPAY ==
[2025-02-23 18:02] VITALS: BP 126/79
[2025-02-23 18:09] VITALS: BP 126/79
[2025-02-23 19:00] VITALS: BP 119/76
--- NOTE | 2025-02-23 19:05 | ED.GENMED ---
History of Present Illness
General
Chief Complaint: Fall
Source: patient
Exam Limitations: none
Time Seen by Provider: 02/23/25 18:59
History of Present Illness
History of Present Illness:
74-year-old male presents from [facility] via EMS after unwitnessed fall. Per staff at facility he has been increasing confused since the fall. Patient notes some neck pain upon assessment. He denies chest arm or leg pain. He does not think
he hit his head. He is not anticoagulated. No other complaints
Past History
Past History
ED Past Medical History: CAD, COPD and Other ( Adenocarcinoma of prostate, Muscle wasting and atrophy, Hypertension, Anxiety, NSTEMI (non-ST elevated myocardial infarction), Nocturia, Heart failure with preserved ejection fraction, VT (ventricular
tachycardia), Cellulitis, Metabolic encephalopathy, Acute respiratory failure with hyp)
ED Past Surgical History: Cardiac
Social History
Tobacco: Smoker
Alcohol: None
Drug: None
Personal:
Living: snf
Employment: Not employed
Family History
Family History: Unable to obtain (Patient obtunded)
Phy Exam
Physical Exam
Physical Exam:
General: Well-appearing male no acute respiratory distress
HEENT normocephalic neck in cervical collar by EMS
Heart: Regular rate and rhythm
Lungs: Clear no wheeze
Musculoskeletal exam: Cervical spine is tender over the midline through the collar. He has good range of motion all extremities.
Neurologic: Alert oriented to person and place. He tends to have flight of ideas while talking
Abdomen is soft nontender
Course
Orders/Labs/Results
Orders:
Orders
02/23/25 19:04
CT Cervical Spine W/o Iv Contr Urgent
Comment:
Reason For Exam: fall
CT Head W/o Iv Contrast Urgent
Comment:
Reason For Exam: fall
Vital Signs
Initial and Last Documented VS:
Initial Vital Signs
Temp Pulse Resp BP Pulse Ox
99.2 F 70 20 126/79 96
02/23/25 18:02 02/23/25 18:02 02/23/25 18:02 02/23/25 18:02 02/23/25 18:02
Last Documented Vital Signs
Temp Pulse Resp BP Pulse Ox
99.2 F 69 19 101/50 96
02/23/25 18:09 02/23/25 21:00 02/23/25 21:00 02/23/25 21:00 02/23/25 19:07
MDM/Problems Addressed
Differential Diagnosis Includes:
Unwitnessed fall. Neck pain. CT of head and cervical spine ordered to evaluate for intracranial hemorrhage or cervical spine fracture. No evidence of extremity injury
*Pulse Oximetry
SaO2: 96
Nasal Cannula flow liters per minute: 4
Patient hypoxic: no
*Critical Care Note
Total Time (30-74mins, 75-104mins- exclusive of procedures): Not Applicable
Update Note
Update Note:
CT of head and cervical spine showed no acute abnormality. No indication for admission. Stable for discharge back to facility
ED Attending Note
-
Portions of this chart may have been created with voice recognition software.� Occasional wrong word or��sound alike� substitutions may have occurred due to the inherent limitations of voice recognition software.
Discharge Plan
Departure
Patient Disposition: Home (Routine Discharge)
Date of Disposition: 02/23/25
Time of Disposition: :25
Patient with high blood pressure during this ER visit?: No
Discharge Problem:
Fall
Prescriptions:
No Action
aspirin 81 MG tablet,chewable
81 mg PO DAILY 30 Days Qty: 30 0RF
bicalutamide 50 mg tablet
50 mg PO DAILY
acetaminophen 325 mg Tablet
650 mg PO Q4HPRN PRN (Reason: mild pain/fever)
sertraline 50 mg Tablet
100 mg PO DAILY
magnesium hydroxide [Milk of Magnesia] 400 mg/5 mL suspension
30 ml PO DAILYPRN PRN (Reason: constipation)
bisacodyl 10 mg suppository
10 mg AR DAILYPRN PRN (Reason: if MOM is ineffective after 24 hrs)
atorvastatin 20 mg Tablet
20 mg PO HS
ipratropium-albuterol 0.5 mg-3 mg(2.5 mg base)/3 mL solution for nebulization
3 ml inhalation R BID
potassium chloride 10 mEq Tablet Extended Release
20 meq PO DAILY
Fleet Enema 19-7 gram/118 mL Enema
118 ml AR DAILYPRN PRN (Reason: if dulcolax is ineffective after 24 hrs)
furosemide 80 mg Tablet
80 mg PO BID@0800,1600 Qty: 60 11RF
metoprolol succinate 25 mg Tablet Extended Release 24 Hr
25 mg PO DAILY Qty: 30 11RF
ipratropium-albuterol 0.5 mg-3 mg(2.5 mg base)/3 mL Solution For Nebulization
3 ml inhalation R Q4HPRN PRN (Reason: shortness of breath) Qty: 0 0RF
cyanocobalamin (vitamin B-12) [Vitamin B-12] 1,000 mcg Tablet
1,000 mcg PO DAILY Qty: 0 0RF
cholecalciferol (vitamin D3) 50 mcg (2,000 unit) Tablet
50 mcg PO DAILY Qty: 0 0RF
budesonide 0.5 mg/2 mL Suspension For Nebulization
0.5 mg inhalation R BID Qty: 60 0RF
prednisone 5 mg Tablet
5 mg PO MOWEFR
amlodipine [Norvasc] 5 mg Tablet
5 mg PO DAILY
fluticasone propionate [Flonase] 50 mcg/actuation [place],Suspension
2 spray INTRANASAL DAILY
menthol-zinc oxide [Moisture Barrier Ointment] 0.44-20.6 % Ointment
1 applic TOPICAL TID
Referrals:
Adam Leiva I., [Family Provider, Internal Medicine]
Activity Restrictions/Additional Instructions:
CT of head and cervical spine were performed today due to his fall. These were negative. Return if needed
Interventions
Interventions:
*Risk Screen - Suicide Last Done: 02/23/25 18:08
*General Assessment Last Done: 02/23/25 18:08
*Neglect/Abuse Screening Last Done: 02/23/25 18:08
*ED- Fall Risk Assessment Last Done: 02/23/25 19:06
ED-Musculoskeletal Assessment Last Done: 02/23/25 19:12
ED- Neurological Assessment Last Done: 02/23/25 19:12
ED-Skin Assessment Last Done: 02/23/25 19:38
Discharge Date and Time
Print Language: MACEDONIAN
[2025-02-23 20:06] VITALS: BP 108/60
[2025-02-23 21:00] VITALS: BP 101/50
[2025-02-23 23:00] VITALS: BP 106/64
--- NOTE | 2025-02-24 00:08 | EDRN ---
Report called to Jazzy Chow.
== END 2025-02-24 00:05 | disposition home or self-care (01) ==
LOC: EMR 17:51
PROVIDERS: EMERGENCY PHYSICIAN Emergency Medicine; FAMILY PHYSICIAN Internal Medicine
DX: R41.0 Disorientation, unspecified (principal); M54.2 Cervicalgia; W19.XXXA Unspecified fall, initial encounter; I25.10 Atherosclerotic heart disease of native coronary artery without angina pectoris; J44.9 Chronic obstructive pulmonary disease, unspecified; F41.9 Anxiety disorder, unspecified; I11.0 Hypertensive heart disease with heart failure; I50.32 Chronic diastolic (congestive) heart failure; F17.200 Nicotine dependence, unspecified, uncomplicated; I25.2 Old myocardial infarction; Z79.82 Long term (current) use of aspirin
CPT/HCPCS: 99284; 70450; 72125

== ENCOUNTER 2025-03-16 20:02 | Inpatient (IN) | payer MEDICARE, OTHER, SELFPAY ==
[2025-03-16] VITALS (11 sets, daily range): BP systolic 94–135; BP diastolic 54–95; PULSE 2–67; BMI 27.0
--- NOTE | 2025-03-16 16:13 | ED.GENMED ---
History of Present Illness
General
Chief Complaint: Breathing Problem
Source: patient, records, ambulance crew and skilled nursing
Exam Limitations: none
Time Seen by Provider: 03/16/25 16:05
Nursing documentation reviewed up to this point in time: agreed with
History of Present Illness
History of Present Illness:
74-year-old male with past medical history of COPD, chronic respiratory failure on 4 to 5 L of home oxygen and nighttime BiPAP, CHF, CAD, hypertension who presents to the emergency department from [facility] for evaluation of confusion and low
pulse ox. Patient is a very tangential historian. I spoke to the nursing staff at [facility] as well as EMS to obtain collateral history: Apparently he had been in his normal state of health per skilled nursing staff but has been declining to use
BiPAP at night as previously instructed. Today was becoming increasingly confused. He was making repeated calls to 911 claiming that someone was robbing him. Ultimately EMS crew was sent to the scene and he was noted to be hypoxic and was
transported to the emergency room. He does admit to some mild shortness of breath but does not seem to have any other complaints although again he is a poor historian today.
Past History
Past History
ED Past Medical History: CAD, COPD and Other ( Adenocarcinoma of prostate, Muscle wasting and atrophy, Hypertension, Anxiety, NSTEMI (non-ST elevated myocardial infarction), Nocturia, Heart failure with preserved ejection fraction, VT (ventricular
tachycardia), Cellulitis, Metabolic encephalopathy, Acute respiratory failure with hyp)
ED Past Surgical History: Cardiac
Social History
Tobacco: Smoker
Alcohol: None
Drug: None
Personal:
Living: skilled nursing
Employment: Not employed
Family History
Family History: Unable to obtain (Patient obtunded)
Review of Systems
Review of Systems
All Other Systems: ROS reviewed and negative except as documented in HPI and ROS (Somewhat limited reliability-patient is a tangential historian)
Constitutional: Denies fever
Respiratory: Reports trouble breathing; Denies cough
Cardiac: Denies chest pain
ABD/GI: Denies abdominal pain, nausea or vomiting
: Denies flank pain
Musculoskeletal: Denies neck pain or back pain
Neurological: Denies headache
Phy Exam
Physical Exam
Physical Exam:
General: Awake, alert, nontoxic
Head: Normocephalic, atraumatic
Eyes: Conjunctiva normal, EOMI
Throat: Airway intact, handling secretions
Neck: Trachea midline, no JVD
Lungs: Occasional wheeze, somewhat diminished at the lung bases, hypoxic to 89-91% on 6 L nasal cannula
Heart: Regular rate and rhythm, no murmurs, gallops, or rubs appreciated
Neuro: Cranial nerves grossly intact, moving all extremities equally with no focal motor or sensory deficit, no aphasia noted
Extremities: Trace edema in the legs, extremities are warm and well-perfused
Scores
Heart Failure Risk
Heart Failure Risk Score: Not Applicable
Heart Score for Chest Pain Patients
STEMI patient?: Not applicable
Withdrawal Assessment of Alcohol
Withdrawal Assessment Completed?: Not applicable
Course
Orders/Labs/Results
Orders:
Orders
03/16/25 16:08
Electrocardiogram (*1) Urgent
Reason for Study: Shortness of Breath
EKG- Treatment ONCE
CR Chest Portable - 1 View Urgent
Comment:
Reason For Exam: sob
Reason Study Needs to be Portable: Unable to Transport
03/16/25 16:09
Ipratropium/Albuterol Sulfate [Duoneb] 3 ml INH R NOW STA
03/16/25 16:30
COVID-19 Antigen Urgent
Source: Nasal Swab
03/16/25 17:00
CT Head W/o Iv Contrast Urgent
Comment:
Reason For Exam: confused
03/16/25 17:16
Complete Blood Count/With Diff Urgent
Comprehensive Metabolic Panel Urgent
NT-proBNP Urgent
Venous Blood Gas Urgent
%Oxygen/Room Air: 90%
03/16/25 17:37
Influenza A+B Rapid Molecular Routine
[facility] Source: [facility]
Specimen Description:
03/16/25 18:31
MethylPREDNISolone PF [Solu-Medrol Pf] 125 mg IV NOW STA
03/16/25 18:33
Bipap [RESP] Urgent
Patient to use own unit?: No
Inspiratory Pressure (cm H2O): 12
Expiratory Pressure (cm H2O): 5
Abnormal Lab Results
03/16/25
17:16
RBC 4.05 L 10^6/uL
(4.70-6.10)
Hgb 9.9 L g/dL
(13.0-18.0)
Hct 32.4 L %
(39.0-52.0)
MCH 24.4 L pg
(27.0-31.0)
MCHC 30.6 L g/dL
(33.0-37.0)
RDW 14.6 H %
(11.5-14.5)
Absolute Monos (auto) 0.8 H 10^3/uL
(0.1-0.6)
Lymphocytes % 14.3 L %
(20.5-51.1)
Monocytes % 9.9 H %
(1.7-9.3)
VBG pH 7.44 H
(7.32-7.43)
VBG pCO2 73 H* mmHg
(35-48)
VBG pO2 66 H mmHg
(30-50)
VBG HCO3 49.6 H mmol/L
(22-27)
Chloride 90 L mmol/L
(98-107)
Carbon Dioxide 42 H mmol/L
(22-30)
BUN 22 H mg/dl
(9-20)
Glucose 106 H mg/dl
(70-99)
03/16/25 17:16
03/16/25 17:16
Vital Signs
Initial and Last Documented VS:
Initial Vital Signs
Temp
36.8 C
03/16/25 16:03
Last Documented Vital Signs
Temp Pulse Resp BP Pulse Ox
36.8 C 63 18 96/62 90
03/16/25 16:03 03/16/25 17:45 03/16/25 17:45 03/16/25 17:00 03/16/25 17:45
MDM/Problems Addressed
Differential Diagnosis Includes:
Pneumonia, CHF, COPD
MDM/Problems Addressed:
74-year-old male with history as noted presents for evaluation of some increased confusion today and low pulse ox despite his home oxygen. Vitals and exam as above. Plan to check labs including a CBC and a CMP, VBG, proBNP. Will check chest x-ray
and EKG. Will check CT head in an abundance of caution. Will monitor closely and reassess after the above.
Labs and imaging reviewed: CBC shows stable anemia. CMP shows metabolic alkalosis similar to prior values. proBNP elevated only slightly elevated. COVID and flu negative. Chest x-ray reviewed by me shows no clear signs of pulmonary edema, trace
effusions bilaterally, no evidence of pneumonia. His VBG is concerning for a pCO2 of 73�had prior significant elevation in the past during admission requiring BiPAP. Suspect likely that his confusion is from CO2 retention in the setting of COPD
exacerbation and BiPAP noncompliance. Will place on BiPAP here, steroids and nebs. Will admit for continued monitoring, wean oxygen as able. Discussed with hospitalist for admission.
Chronic conditions affecting care:
COPD, CHF
Acute Exacerbation and/or Progression of Chronic Illness:
Acute on chronic respiratory failure with hypoxia manage with increased oxygen
*Radiology
Radiology exam reviewed: preliminary read by ED provider and radiology read reviewed
*Pulse Oximetry
Patient hypoxic: yes (89%)
*EKG
Interpreted by ED Provider?: Yes
Heart Rate: 65
Rate: normal
Rhythm: sinus
[place]: normal axis
Interval: normal interval
QRS Pattern: normal QRS
Ischemia: no ischemia
*Critical Care Note
Total Time (30-74mins, 75-104mins- exclusive of procedures): Not Applicable
Data Reviewed
Review of Other/Old Records Reveals: Labs and Records
Source: patient, records, ambulance crew and skilled nursing
Patient Management
Discussion with other providers: Hospitalist (Discussed with hospitalist) and [facility] staff (Discussed directly with nursing of staff)
Escalation/DeEscalation of care consider admission/obs:
Admission indicated
ED Attending Note
-
Portions of this chart may have been created with voice recognition software.� Occasional wrong word or��sound alike� substitutions may have occurred due to the inherent limitations of voice recognition software.
Discharge Plan
Departure
Discharge Problem:
COPD exacerbation, Carbon dioxide retention
Prescriptions:
No Action
aspirin 81 MG tablet,chewable
81 mg PO DAILY 30 Days Qty: 30 0RF
bicalutamide 50 mg tablet
50 mg PO DAILY
acetaminophen 325 mg Tablet
650 mg PO Q4HPRN PRN (Reason: mild pain/fever)
sertraline 50 mg Tablet
100 mg PO DAILY
magnesium hydroxide [Milk of Magnesia] 400 mg/5 mL suspension
30 ml PO DAILYPRN PRN (Reason: constipation)
bisacodyl 10 mg suppository
10 mg MD DAILYPRN PRN (Reason: if MOM is ineffective after 24 hrs)
atorvastatin 20 mg Tablet
20 mg PO HS
ipratropium-albuterol 0.5 mg-3 mg(2.5 mg base)/3 mL solution for nebulization
3 ml inhalation R BID
potassium chloride 10 mEq Tablet Extended Release
30 meq PO DAILY
furosemide 80 mg Tablet
80 mg PO BID@0800,1600 Qty: 60 11RF
metoprolol succinate 25 mg Tablet Extended Release 24 Hr
25 mg PO DAILY Qty: 30 11RF
ipratropium-albuterol 0.5 mg-3 mg(2.5 mg base)/3 mL Solution For Nebulization
3 ml inhalation R Q4HPRN PRN (Reason: shortness of breath) Qty: 0 0RF
cyanocobalamin (vitamin B-12) [Vitamin B-12] 1,000 mcg Tablet
1,000 mcg PO DAILY Qty: 0 0RF
cholecalciferol (vitamin D3) 50 mcg (2,000 unit) Tablet
50 mcg PO DAILY Qty: 0 0RF
budesonide 0.5 mg/2 mL Suspension For Nebulization
0.5 mg inhalation R BID Qty: 60 0RF
prednisone 5 mg Tablet
5 mg PO MOWEFR
amlodipine [Norvasc] 5 mg Tablet
5 mg PO DAILY
fluticasone propionate [Flonase] 50 mcg/actuation [place],Suspension
2 spray INTRANASAL DAILY
menthol-zinc oxide [Moisture Barrier Ointment] 0.44-20.6 % Ointment
1 applic TOPICAL TID
Fleet Enema 19-7 gram/118 mL Enema
118 ml MD DAILYPRN PRN (Reason: if no bm aftr duloclax)
Referrals:
Adam Leiva I. DO [Family Provider, Internal Medicine]
Interventions
Interventions:
*Risk Screen - Suicide Last Done: 03/16/25 16:03
*General Assessment Last Done: 03/16/25 16:03
*Neglect/Abuse Screening Last Done: 03/16/25 16:03
*ED COVID-19 Vaccine History Last Done: 03/16/25 17:30
ED- Cardiac Assessment Last Done: 03/16/25 17:30
ED- Pulmonary Assessment Last Done: 03/16/25 17:30
Discharge Date and Time
Print Language: SLOVENIAN
[2025-03-16] MEDS: DUONEB 3 ML INH ×2 (17:17→22:02)
[2025-03-16 17:24] LABS: Hematocrit 32.4 % (39.0-52.0); Hemoglobin 9.9 g/dL (13.0-18.0); Mean Corp Hgb Conc. 30.6 g/dL (33.0-37.0); Mean Corpuscular Volume 80.0 fL (80.0-94.0); Nucleated Red Blood Cells % 0 % (-); Platelet Count 293 10^3/uL (130-400); Red Cell Dist. Width 14.6 % (11.5-14.5); Venous Blood Gas B.E. 21.9 mmol/L (-4 to +4); Venous Blood Gas O2 Sat % 95.4 %
[2025-03-16 17:31] LABS: COVID-19 Antigen Negative (Negative)
[2025-03-16 17:46] LABS: ALT (SGPT) 12 U/L (0-50); AST (SGOT) 20 U/L (17-59); Albumin 3.8 g/dl (3.5-5.0); Alkaline Phosphatase 91 U/L (38-126); Blood Urea Nitrogen 22 mg/dl (9-20); Calcium 9.1 mg/dl (8.4-10.2); Chloride 90 mmol/L (98-107); Glucose 106 mg/dl (70-99); Potassium 3.9 mmol/L (3.5-5.1); Sodium 139 mmol/L (135-145); Total Protein 6.8 g/dl (6.3-8.2); eGFR > 60.00
[2025-03-16 18:05] LABS: Carbon Dioxide 42 mmol/L (22-30)
[2025-03-16] MEDS: SOLU-MEDROL PF 125 MG IV (18:57)
--- NOTE | 2025-03-16 19:30 | HPS.HSE ---
Family Physician
-
Family Physician: Adam Leiva
Chief Complaint
-
sob
History of Present Illness
74-year-old male with past medical history of COPD, chronic respiratory failure on 4 to 5 L of home oxygen and nighttime BiPAP, CHF, CAD, hypertension who presents to the emergency department from [facility] for evaluation of confusion and low
pulse ox.
patient is poor historian due to metabolic encephalopathy. as per ER note he was refusing BiPPAP and oxygen at the [facility]. today he was noted confused more than usual, which prompted him to come to the ER.
Upon arrival he is hypoxic requiring BiPAP. Patient received a dose of steroids and nebs in ER. Admitted for further management
Medical History
Past Medical History
Past Medical History: Reports Other
Additional Past Medical History:
RI
CAD
COPD
CHF
HTN
HLD
BIpolar
prostate ca
anxiety
pulmonary HTN
RICARDO
Past Surgical History: Reports Other
Additional Past Surgical History:
tonsillectomy
cardiac stent
Social History
Unable to obtain full social history at this time due to: Dementia
Family History
Family History: Not pertinent
Allergies / Home Medications
Allergies reflects when Allergies were last updated in [employer].
Home Medications with original date entered in [employer]
Allergy/Medication List:
Allergies
Allergy/AdvReac Type Severity Reaction Status Date / Time
No Known Allergies Allergy Verified 03/16/25 16:19
Home Medications
aspirin 81 mg chewable tablet 81 mg PO DAILY Heart disease/condition 30 days #30 tabs 04/01/22
bicalutamide 50 mg tablet 50 mg PO DAILY Cancer 03/31/23
acetaminophen 325 mg tablet 650 mg PO Q4HPRN PRN mild pain/fever 01/31/24
bisacodyl 10 mg rectal suppository 10 mg [place] DAILYPRN PRN if MOM is ineffective after 24 hrs 01/31/24
magnesium hydroxide 400 mg/5 mL oral suspension (Milk of Magnesia) 30 ml PO DAILYPRN PRN constipation 01/31/24
sertraline 50 mg tablet 100 mg PO DAILY Mental Health/Anxiety 01/31/24
atorvastatin 20 mg tablet 20 mg PO HS High Cholesterol 08/08/24
ipratropium 0.5 mg-albuterol 3 mg (2.5 mg base)/3 mL nebulization soln 3 ml inhalation R BID Lung/Breathing Issues 08/09/24
potassium chloride 10 mEq tablet,extended release 30 meq PO DAILY Electrolyte Repletion 11/15/24
budesonide 0.5 mg/2 mL suspension for nebulization 0.5 mg (2 mL) inhalation R BID Lung/breathing issues #60 mL 12/18/24
cholecalciferol (vitamin D3) 50 mcg (2,000 unit) tablet 50 mcg PO DAILY def #0 tabs 12/18/24
cyanocobalamin (vitamin B-12) 1,000 mcg tablet (Vitamin B-12) 1,000 mcg PO DAILY Supplement #0 tabs 12/18/24
furosemide 80 mg tablet 80 mg PO BID@0800,1600 Heart Failure #60 tabs 12/18/24
ipratropium 0.5 mg-albuterol 3 mg (2.5 mg base)/3 mL nebulization soln 3 ml inhalation R Q4HPRN PRN shortness of breath #0 mL 12/18/24
metoprolol succinate 25 mg tablet,extended release 24 hr 25 mg PO DAILY Heart disease/condition #30 tabs 12/18/24
amlodipine 5 mg tablet (Norvasc) 5 mg PO DAILY 02/23/25
fluticasone propionate 50 mcg/actuation nasal spray,suspension 2 spray intranasal DAILY 02/23/25
menthol 0.44 %-zinc oxide 20.6 % topical ointment (Moisture Barrier Ointment) 1 applic topical TID BUTTOCKS 02/23/25
prednisone 5 mg tablet 5 mg PO MOWEFR 02/23/25
sodium phosphates 19 gram-7 gram/118 mL enema (Fleet Enema) 118 ml [place] DAILYPRN PRN if no bm aftr duloclax 03/16/25
Review of Systems
-
Constitutional: Reports No Symptoms
EENT: Reports No Symptoms
Respiratory: Reports Trouble Breathing
Cardiac: Reports No Symptoms
Abdomen/GI: Reports No Symptoms
: Reports No Symptoms
Musculoskeletal: Reports No Symptoms
Skin: Reports No Symptoms
Neurological: Reports No Symptoms
Endocrine: Reports No Symptoms
Hematologic/Lymphatic: Reports No Symptoms
Psych: Reports No Symptoms
Physical Exam
Vital Signs
Vital Signs
Temp Pulse Resp BP Pulse Ox
98.2 F 63 18 96/62 90
03/16/25 16:03 03/16/25 17:45 03/16/25 17:45 03/16/25 17:00 03/16/25 17:45
Physical Exam
General: Well Developed, Well Nourished and No Apparent Distress
HEENT: NormoCephalic, Moist mucous membranes and Atraumatic
Respiratory: Wheezes
Cardiac: S1/S2 and Regular Rhythm; No Murmur or Rub
GI: Soft, Non Tender, Non Distended and Normal Bowel Sounds; No Organomegaly
Rectal: Deferred by Provider
Musculoskeletal: No Clubbing, No Cyanosis and No Edema
Skin: No Rash
Neuro: Nonfocal/grossly intact
Laboratory Results
-
03/16/25 17:16
03/16/25 17:16
Laboratory Results
Total Bilirubin 0.8 mg/dl (0.2-1.3) 03/16/25 17:16
AST 20 U/L (17-59) 03/16/25 17:16
ALT 12 U/L (0-50) 03/16/25 17:16
Alkaline Phosphatase 91 U/L (38-126) 03/16/25 17:16
Data Reviewed
-
Diagnostic Radiology: Report Reviewed by me
CT Scan: Report Reviewed by me
Lab Data: Labs Reviewed by me
Impression/Plan
-
#acute o chronic hypoxic respiratory failure/metabolic encephalopathy secondary COPD exacerbation
-requiring 6l NC
-uses 4-5l at home, BiPAP at hs
-nebs continued
-continue supplemental oxygen to keep sat >90
-wean as tolerated
-steroids continued
-COVID negative
-head CT negative
-chest x ray pending
-procal pending
-iv cefepime and oral Zithromax
-Mucinex, acapella and encourage IS
#anemia of chronic disease
-hgb stable at 9.9, no active bleeding
-CTM
# Heart Failure preserved EF
-TTE 08/09/24 with EF 55%, mild concentric LVH
-On Lasix 80mg PO BID at home
- Strict VIOLET, daily weight
# CAD with hx PCI
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
# History of prostate cancer
-Patient is on bicalutamide
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
# Essential HTN
- Norvasc continue with hold parameters
# Ex Smoker
#DVT PPx Lovenox subQ
#FULL CODE
--- NOTE | 2025-03-16 19:53 | W.PN.UPDATE ---
Update Note
Progress Note Update
I could not get any information from the patient is very tangential historian.
Information gathered by chart review and speaking with the ER staff.
This note serves as an addendum to the H&P by pharmacy technician per diem TAPAN Mckenzie QUEEN
HPI
74M Res of [facility] [place], Obese , suspected RICARDO/OHS (refused testing), noncompliance, severe COPD/emphysema, chronic hypoxemia, home O2 4 to 5 L depedeent and BiPAP HS sen at ER:
- very tangential historian.
- evaluation of confusion and low pulse ox
Collateral HX from EMS:
- normal state of health per prison staff but has been declining to use BiPAP at night as previously instructed. T
- today was becoming increasingly confused.
- repeated calls to 911 claiming that someone was robbing him.
- Ultimately EMS crew was sent to the scene and he was noted to be hypoxic and was transported to the emergency room.
Relevant VS
POx 89-91% on 6 L NC O2
Vital Signs
Temp Pulse Resp BP Pulse Ox
98.2 F 66 23 106/54 90
03/16/25 16:03 03/16/25 19:30 03/16/25 19:30 03/16/25 19:00 03/16/25 19:30
PE
General: Awake, alert, nontoxic
HEENT:
Neck: JVD
Lungs: somewhat diminished at the lung bases,
Heart: Regular rate and rhythm, no murmurs, gallops, or rubs appreciated
Neuro: moving all extremities equally with n NFND , not aphasic
Ext. Trace edema in the legs, extremities are warm and well-perfused
Laboratory Tests
12/15/24 12/16/24 12/18/24
18:30 04:17 05:34
WBC
Hgb 10.0 L
Plt Count
VBG pH 7.45 H
VBG pCO2 72 H*
VBG pO2 232 H
Carbon Dioxide 40 H
Creatinine 0.6 L
eGFR > 60.00
03/16/25
17:16
WBC 8.5
Hgb 9.9 L
Plt Count 293
VBG pH 7.44 H
VBG pCO2 73 H*
VBG pO2 66 H
Carbon Dioxide 42 H
Creatinine 1.0
eGFR > 60.00
CXR: final report is pending
HCT
1. Moderate diffuse cerebral and cerebellar volume loss.
2. Moderate periventricular white matter leukoaraiosis in the frontal and parietal lobes.
3. Severe chronic left frontal and anterior ethmoid air cell sinusitis
08/09/2024 TTE
LVEF 55%.
Dilated right ventricular with low normal RV systolic function.
Estimated pulmonary pressure 65-70 mmHg.
Last hospitalist admission: 12/12/2024 - 12/19/2024
DISCHARGE DIAGNOSES:
1. Bilateral pneumonia.
2. Acute on chronic heart failure with preserved ejection fraction.
3. Acute kidney injury.
ASSESSMENT & PLAN
Acute on chronic hypoxic and hypercarbic RF
Associated AMS suspect early metabolic encephalopathy
Suspect RICARDO/OHS, never had sleep study/declined /2024HX
Advanced COPD/emphysema with chronic hypercapnic and hypoxemic RF -possibly some degree of AE
- HX Non compliance with OP BiPAP
- pending final CXR report
- cont DuoNebs and Pulmicort
- cont. IV Solu-Medrol 40mg q8h
- Mucolytics with Mucinex; antitussives prn
- Incentive spirometry when able
- Acapella device when able
- Avoid sedatives
- Pul consult
Pending CXR ? PNA
- check PCT - if NEG, will stop ABx
- empiric IV CFP and PO azithromycin
HX Chr HFpEF proBNP 1050
- not in acute HF
Pending Rx reconciliation
CAD HX PTCA .
Depression.
Anemia.
Microscopic hematuria.
Hypertension.
Ex-smoker.
DVT Px: LMWH
Full code
IMU
[2025-03-16 20:23] LABS: Procalcitonin 0.06 ng/ml (0.0-0.25)
--- NOTE | 2025-03-16 21:36 | PTCARENOTE ---
patient received on a stretcher on 100% non-rebreather mask. Pox 98%. Sinus rhythm on telemetry with rates in 60's. Afebrile. Normotensive. Awake, alert, oriented x 2-3 with confused conversation. Pleasant, cooperative, following commands. Oriented
to room. Bed in lowest position and call thompson in reach. Bed alarm activated. See fully documented assessment. Continuing to monitor.
[2025-03-16] MEDS: PULMICORT 0.5 MG INH (22:02)
[2025-03-17] VITALS (15 sets, daily range): BP systolic 107–133; BP diastolic 61–118; PULSE 67; O2SAT 89; BMI 27.0; BMI 26.7
[2025-03-17] MEDS: LIPITOR 20 MG PO ×2 (00:17→22:44)
[2025-03-17] MEDS: MUCINEX 600 MG PO ×3 (00:18→20:01)
[2025-03-17] MEDS: SOLU-MEDROL PF 40 MG IV ×2 (00:18→08:34)
[2025-03-17] MEDS: SOLU-MEDROL PF IV ×2 (00:18)
--- NOTE | 2025-03-17 00:20 | W.PN.UPDATE ---
Update Note
Progress Note Update
procal negative- will dc cefepime
--- NOTE | 2025-03-17 04:00 | PTCARENOTE ---
pt weaned to 5L nasal canula. Pox maintained 92-94% while asleep. Dropping to 87-89% while speaking and eating and recovering within seconds of rest. Pleasant and cooperative and arouses easily. Incontinent of urine. Assisted with Q2hr turning. Call
thompson in reach. Continuing to monitor
[2025-03-17 04:40] LABS: Hematocrit 31.7 % (39.0-52.0); Hemoglobin 9.8 g/dL (13.0-18.0); Mean Corp Hgb Conc. 30.9 g/dL (33.0-37.0); Mean Corpuscular Volume 78.5 fL (80.0-94.0); Nucleated Red Blood Cells % 0 % (-); Platelet Count 263 10^3/uL (130-400); Red Cell Dist. Width 15.0 % (11.5-14.5)
--- NOTE | 2025-03-17 07:23 | CON.PUL ---
Consultation
Consultation Request
Date/Time Consultation Requested: 03/16/2025
Date/Time Consultation Performed: 03/17/2025
Medical History
-
Chief Complaint: Dyspnea
History of Present Illness:
Patient is a 74-year-old very pleasant gentleman with known history of chronic respiratory failure, home oxygen dependent COPD, CHF who presented to the emergency room for evaluation of confusion and hypoxia. Reportedly patient was refusing BiPAP
and supplemental oxygen at [facility]. Patient was noted to be hypoxic on initial admission and required BiPAP support, he was also started on steroids, bronchodilators and was admitted to the hospital for concern for COPD exacerbation.
Pulmonary consultation was requested for further input.
Past Medical History: Reports Other
Additional Past Medical History:
MA
CAD
COPD
CHF
HTN
HLD
BIpolar
prostate ca
anxiety
pulmonary HTN
RICARDO
Past Surgical History: Reports Other
Additional Past Surgical History:
tonsillectomy
cardiac stent
Social History
Unable to obtain full social history at this time due to: Dementia
Family History
Family History: Not pertinent
Allergies / Home Medications
Allergies / Home Medications
Allergies
Allergy/AdvReac Type Severity Reaction Status Date / Time
No Known Allergies Allergy Verified 03/16/25 16:19
Home Medications
�Medication �Instructions �Recorded �Confirmed �Last Taken �Type
aspirin 81 mg chewable tablet 81 mg PO DAILY Heart 04/01/22 03/16/25 03/16/25 Rx
disease/condition 30 days #30 tabs
bicalutamide 50 mg tablet 50 mg PO DAILY Cancer 03/31/23 03/16/25 03/16/25 History
acetaminophen 325 mg tablet 650 mg PO Q4HPRN PRN mild 01/31/24 03/16/25 11/10/24 History
pain/fever
bisacodyl 10 mg rectal suppository 10 mg ND DAILYPRN PRN if MOM is 01/31/24 03/16/25 Unknown History
ineffective after 24 hrs
magnesium hydroxide 400 mg/5 mL 30 ml PO DAILYPRN PRN constipation 01/31/24 03/16/25 Unknown History
oral suspension (Milk of Magnesia)
sertraline 50 mg tablet 100 mg PO DAILY Mental 01/31/24 03/16/25 03/16/25 History
Health/Anxiety
atorvastatin 20 mg tablet 20 mg PO HS High Cholesterol 08/08/24 03/16/25 03/14/25 History
ipratropium 0.5 mg-albuterol 3 mg 3 ml inhalation R BID 08/09/24 03/16/25 03/16/25 History
(2.5 mg base)/3 mL nebulization Lung/Breathing Issues
soln
potassium chloride 10 mEq 30 meq PO DAILY Electrolyte 11/15/24 03/16/25 03/16/25 History
tablet,extended release Repletion
budesonide 0.5 mg/2 mL suspension 0.5 mg (2 mL) inhalation R BID 12/18/24 03/16/25 03/16/25 Rx
for nebulization Lung/breathing issues #60 mL
cholecalciferol (vitamin D3) 50 50 mcg PO DAILY def #0 tabs 12/18/24 03/16/25 03/16/25 Rx
mcg (2,000 unit) tablet
cyanocobalamin (vitamin B-12) 1,000 mcg PO DAILY Supplement #0 12/18/24 03/16/25 03/16/25 Rx
1,000 mcg tablet (Vitamin B-12) tabs
furosemide 80 mg tablet 80 mg PO BID@0800,1600 Heart 12/18/24 03/16/25 03/16/25 Rx
Failure #60 tabs
ipratropium 0.5 mg-albuterol 3 mg 3 ml inhalation R Q4HPRN PRN 12/18/24 03/16/25 03/16/25 Rx
(2.5 mg base)/3 mL nebulization shortness of breath #0 mL
soln
metoprolol succinate 25 mg 25 mg PO DAILY Heart 12/18/24 03/16/25 03/16/25 Rx
tablet,extended release 24 hr disease/condition #30 tabs
amlodipine 5 mg tablet (Norvasc) 5 mg PO DAILY 02/23/25 03/16/25 03/16/25 History
fluticasone propionate 50 2 spray intranasal DAILY 02/23/25 03/16/25 03/16/25 History
mcg/actuation nasal
spray,suspension
menthol 0.44 %-zinc oxide 20.6 % 1 applic topical TID BUTTOCKS 02/23/25 03/16/25 03/16/25 History
topical ointment (Moisture Barrier
Ointment)
prednisone 5 mg tablet 5 mg PO MOWEFR 02/23/25 03/16/25 03/15/25 History
sodium phosphates 19 gram-7 118 ml ND DAILYPRN PRN if no bm 03/16/25 03/16/25 Unknown History
gram/118 mL enema (Fleet Enema) aftr duloclax
Review of Systems
-
Hematologic/Lymphatic: Other (All 14 systems reviewed and negative except as stated above in the history of present illness.)
Vitals / Labs / Diagnostic Testing
Vital Signs
Temp Pulse Resp BP Pulse Ox
97.3 F 69 13 124/67 93
03/17/25 03:37 03/17/25 01:30 03/17/25 01:30 03/17/25 00:00 03/17/25 01:30
Lab Data
03/17/25 04:27
03/16/25 17:16
Microbiology
03/16/25 17:37 Nasal Swab Influenza Types A & B (NICOLE) - Final
Negative for Influenza A & B, NAAT
Negative results must be combined with clinical observations
and patient history.
Nucleic Acid Amplification test (NAAT)performed on the
[employer] platform.
Diagnostic Testing:
Physical Exam
-
HEENT: Normocephalic
Cardiovascular: S1/S2
Respiratory: Clear and Non-Labored Respirations
GI: Non Distended
Neurology: Awake
Skin: Warm
General: Comfortable
Assessment
-
#1. Acute on chronic hypoxic and hypercapnic respiratory failure with severe COPD at baseline
- Spirometry 09/08/2021: FEV1 /FVC 40%, FEV1 0.97 L-30%, FVC 2.41 L -55%. Stable mixed ventilatory defect. Severe airflow obstruction and restriction. Stable compared to July 2017
- Blood gas 7.44/73, chronic compensated hypercapnia appears to be at baseline. Unlikely to be the etiology of altered mental status.-
- Basic metabolic panel reviewed, serum bicarbonate chronically elevated between 38-42.
- MRSA screen pending, influenza A, B, COVID-19 screen negative. Patient has normal WBC count, afebrile and a normal procalcitonin of 0.06, agree with stopping IV cefepime.
- Continue azithromycin 500 mg daily for a total of 3 days
- Discontinue IV steroids, switch to prednisone 30 mg daily for 3 more days to complete a 5-day course.
- Patient will resume outpatient follow-up with [facility], Dr. Adair, post discharge. Clinic notes reviewed, patient has declined sleep study and low-dose CT scan for lung cancer screening in the past
- Patient declines use of noninvasive positive pressure ventilation. With his underlying COPD and chronic hypercapnia ideally patient needs to be on nocturnal positive pressure ventilation. This can be further discussed with the patient as
outpatient
#2. Pulmonary hypertension.
- Echocardiogram in 11/2024 suggested estimated pulmonary artery pressure of 65 with preserved LVEF of 60 to 65%. Normal RV size and function
- Suspect a combination of group II (HFpEF) and group III (COPD, hypoxia) PH
- Continue to optimize volume with current dosage of Lasix, continue bronchodilators, continue supplemental oxygen
Other medical diagnoses:
- History of coronary artery disease s/p PCI of LAD in 12/2021
- Acute on chronic Heart failure with preserved ejection fraction (LVEF 55%), elevated left ventricular end-diastolic pressure noted on cardiac cath in 12/2021. BNP elevated at 1050. Also GGO opacities on CXR more suggestive of CHF exacerbation.
Currently on Lasix twice daily, no pedal edema on exam, continue current management
- Acute metabolic encephalopathy. Patient's hypercapnia is at baseline and unlikely to be the etiology of change in mentation. Patient is currently awake, oriented, interactive and answers all questions appropriately. Not encephalopathic during
my evaluation
Total time spent on this consultation/encounter __56__ minutes which includes review of history, physical exam, medications, laboratory data, personal review of imaging, extensive review of outpatient records, discussion with care team and
respiratory therapy.
Data:
CXR 02/2025: 1. Mild ground-glass opacity in both lower lungs. Diagnostic possibilities are (1) bilateral lower lobe pneumonia or (2) subsegmental atelectasis and scarring.
2. Mild left to right mediastinal shift consistent with chronic right lung volume loss.
3. Moderate cardiomegaly.
4. Mild interstitial and alveolar cardiogenic pulmonary edema.
5. Mild bilateral upper lobe emphysema.
CT Head 02/2025: 1. Moderate diffuse cerebral and cerebellar volume loss.
2. Moderate periventricular white matter leukoaraiosis in the frontal and parietal lobes.
3. Severe chronic left frontal and anterior ethmoid air cell sinusitis
CT Chest 11/2024: Pneumonia in the right lung, greatest in the right lower lobe.
Small bilateral pleural effusions.
Moderate centrilobular emphysema.
Cardiomegaly.
Severe coronary artery calcifications. Please correlate with symptoms of and risk factors for coronary artery disease, with further workup as clinically appropriate.
Barium swallow 11/2024: No fluoroscopic evidence of airway aspiration
ECHO 07/2024: Normal left ventricular size and systolic function with LV ejection fraction
visually estimated 55%
Mild concentric left ventricular hypertrophy
Dilated right ventricle with low normal RV systolic function
Normal atrial dimensions
Trace mitral regurgitation
Mild tricuspid regurgitation
Estimated pulmonary artery pressure of 65-70 mmHg assuming a right atrial
pressure of 3 mmHg.
Prominent anterior fat pad present. No significant pericardial effusion.
Compared to prior study dated 04/09/2024, RV size and systolic function
previously reported normal. Otherwise no significant change; prior estimated
pulmonary artery systolic pressure 67 mmHg.
[facility] 12/2021: 1. Successful stenting of the mid and mid-distal LAD with a 3.0 x 20 mm Synergy stent in the mid LAD and a 2.5 x 16 mm Synergy stent in the mid-distal LAD. The more proximal stented segment was postdilated with a 3.0 mm noncompliant
balloon while the more distal segment was postdilated with a 2.5 mm noncompliant balloon
2. Elevated LVEDP
3. Hemodynamic assessment of the RCA: The angiographically intermediate tandem lesions in the mid and mid-distal RCA had an iFR which measured above the ischemic threshold at 0.91. PCI is deferred
[2025-03-17] MEDS: PULMICORT 0.5 MG INH ×2 (07:49→19:21)
[2025-03-17] MEDS: DUONEB 3 ML INH ×4 (07:49→19:21)
[2025-03-17] MEDS: NORVASC 5 MG PO (08:33)
[2025-03-17] MEDS: ZITHROMAX 500 MG PO (08:33)
[2025-03-17] MEDS: ZOLOFT 100 MG PO (08:33)
[2025-03-17] MEDS: KCL 30 MEQ PO (08:33)
[2025-03-17] MEDS: TOPROL XL 25 MG PO (08:33)
[2025-03-17] MEDS: LOW STRENGTH ASPIRIN 81 MG PO (08:33)
[2025-03-17] MEDS: LASIX 80 MG PO ×2 (08:34→15:40)
[2025-03-17] MEDS: CASODEX 50 MG PO (08:34)
--- NOTE | 2025-03-17 10:55 | PTCARENOTE ---
Captured VS for nightshift from [phone], cannot confirm accuracy.
--- NOTE | 2025-03-17 11:39 | PTCARENOTE ---
Assumed care of patient this morning. He knows all orientation questions but goes off on tangents of stories that do not pertain to the conversation and appears confused. SR on monitor. Pulseox difficult to assess, placed on ear, which seems to give
best read. He remains on 4L NC. Pt worked with PT to get into chair. Shortly after needing to use BSC. OOB x2 with RW. Assessment, care and VS as charted.
--- NOTE | 2025-03-17 16:03 | CM ---
Patient from [facility] with Dx acute hypoxic respiratory failure/metabolic encephalopathy, COPD exacerbation. O2 4L. Refusing BiPAP. Receiving PO Abx, PO Lasix. PT & OT; return to [place] LTC.
Per CM notes 12/13/24: the patient resides there in LTC on an MT bed hold.
Spoke with Elvia, Nurse [facility];
the patient is forgetful at baseline and on the day of admission he was confused and constantly dialing 911.
The patient was on O2 4L and has orders for BiPAP that he refuses.
He is assisted with ADLs, 'sself neglects' and often refuses care.
The patient is able to feed himself.
He is w/c bound at baseline.
He had orders for PT/OT that was discontinued because he refuses.
The sister calls and inquires re; his status.
The for report [phone], fax [phone].
Plan contact patient's sister Camila prior to d/c.
Plan return to [facility] when medically ready.
--- NOTE | 2025-03-17 17:06 | W.PN.HOSP.TC ---
Today's Communication/Plan
-
Assessment / Plan
Assessment / Plan
Acute on chronic hypoxic hypercapnic respiratory failure severe COPD
MDIs
Continue azithromycin for total of 3 days
Prednisone to initiate
Continue MDIs
Outpatient follow-up with Dr. Madrid
Per pulmonary
Sleep study/low-dose CT scan
Pulmonary hypertension
Optimize volume with current doses of Lasix bronchodilators supplemental oxygen
Heart failure preserved EF
Continue Lasix
CAD with history of PCI
Aspirin statin beta-yaz
Prostate cancer history continue bicalutamide
Depression continue Zoloft
Left hypertension continue antihypertensives with hold parameters
Anticipated Discharge: 24 - 48 hours
Subjective/Interval History
-
Date of Service: March 17, 2025
Seen and examined. No new complaints. No acute overnight events.
Sitting in bedside chair
Objective Data
-
Vital Signs:
Vital Signs
Temp Pulse Resp BP Pulse Ox
98.3 F 70 22 114/91 95
03/17/25 11:37 03/17/25 16:00 03/17/25 16:00 03/17/25 16:00 03/17/25 16:56
I&O
03/16/25 03/17/25 03/18/25
06:59 06:59 06:59
Intake Total 400 / 400 480 / 480
Balance 400 / 400 480 / 480
Physical Exam
-
General: Well Developed and Well Nourished
HEENT: Normocephalic and Atraumatic
Respiratory: Wheezes and Decreased Breath Sounds
Cardiac: Regular Rhythm
GI: Soft, Nontender, Nondistended and Normal Bowel Sounds
Genito-urinary: No Costovertebral Tender
Musculoskeletal: No Clubbing, No Cyanosis and No Edema
Neuro: Awake, Alert and AO x 3
[2025-03-17] MEDS: LOVENOX 40 MG SC (17:30)
--- NOTE | 2025-03-17 18:18 | PTCARENOTE ---
Patient yelling and upon entry to room, patient is yelling at PCT. He is stating 'you are holding me against my will' and to at least 'give him a ride.' Pt unable to be oriented. Patient does no believe he is at the hospital. Pt name calling and
using threatening language that we are going to be in trouble and he can have someone come and rough us up. Pt attempting to sit up in the bed but then laid back down. Patient able to be calmed down for the time being.
[2025-03-18] VITALS (11 sets, daily range): BP systolic 90–127; BP diastolic 53–88; BMI 27.1
[2025-03-18 05:48] LABS: Hematocrit 32.7 % (39.0-52.0); Hemoglobin 9.8 g/dL (13.0-18.0); Mean Corp Hgb Conc. 30.0 g/dL (33.0-37.0); Mean Corpuscular Volume 79.6 fL (80.0-94.0); Nucleated Red Blood Cells % 0 % (-); Platelet Count 307 10^3/uL (130-400); Red Cell Dist. Width 15.4 % (11.5-14.5)
--- NOTE | 2025-03-18 06:44 | W.PN.HOSP.TC ---
Today's Communication/Plan
-
Discharge the pt with Outpt follow up [facility]
Assessment / Plan
Assessment / Plan
74 yrs old M presented with shortness of breath with home oxygen dependent COPD, CHF,
# Acute on chronic hypoxic and hypercapnic respiratory failure with severe COPD at baseline
-FEV 30%. (2017),GOLD GRADE 3 - Severe Temp= 97.5, WBC count- 12.2 (h)
-Electrolytes are within normal baseline level of 03/16
-VBG: pCO2= 73 (H), pH= 7.44(h), HCO3= 49.5 (h)- Respiratory Alkalosis.
- Pt is conscious, but highly irritated.
- Currently pt is on 4L nasal cannula oxygen.
Chest X ray on 03/16 impression:
1. Mild ground-glass opacity in both lower lungs. Diagnostic possibilities are (1) bilateral lower lobe pneumonia or (2) subsegmental atelectasis and scarring.
2. Mild left to right mediastinal shift consistent with chronic right lung volume loss.
3. Moderate cardiomegaly.
4. Mild interstitial and alveolar cardiogenic pulmonary edema.
5. Mild bilateral upper lobe emphysema.
-Ipratropium bromide/ Albuterol sulfate inhaler pt is taking
- Prednisone 30 mg for 3 days course started on today for the maintenance therapy DAY 1.
- Patient started on azithromycin 500mg for total of 3 days. (on 2nd day)
-Pt refused to do sleep study/ low dose scan
-Outpatient follow-up with Dr. Madrid
# Pulmonary hypertension:
- Echocardiogram in 11/2024 suggested estimated pulmonary artery pressure of 65 with preserved LVEF of 60 to 65%. Normal RV size and function
Optimize volume with current doses of Lasix bronchodilators supplemental oxygen
# Heart failure preserved EF
Continuing with Lasix 80 mg
ECHO 07/2024: Normal left ventricular size and systolic function with LV ejection fraction
visually estimated 55%
Mild concentric left ventricular hypertrophy
Dilated right ventricle with low normal RV systolic function
# CAD with history of PCI
Aspirin 81 mg ,statin 20 mg , Metoprolol 25 mg
#Prostate cancer history continuing bicalutamide
# Depression continue Zoloft
DVT PPx: Lovenox subQ
FULL CODE
DISPOSITION: SNF
Anticipated Discharge: Today
Subjective/Interval History
-
Date of Service: March 18, 2025
patient doesn't want to discuss about his health condition today, but he is not currently has a breathing problem, dysuria.
Obtain history from ICU nurse- Overnight he was dening to keep oxygen cannula, Bipap.
Objective Data
-
Labs:
03/18/25 05:40
03/16/25 17:16
Laboratory Results
Total Bilirubin 0.8 mg/dl (0.2-1.3) 03/16/25 17:16
AST 20 U/L (17-59) 03/16/25 17:16
ALT 12 U/L (0-50) 03/16/25 17:16
Alkaline Phosphatase 91 U/L (38-126) 03/16/25 17:16
Laboratory Results
03/18/25
05:40
WBC 12.2 H
Hgb 9.8 L
Hct 32.7 L
Plt Count 307
Vital Signs:
Vital Signs
Temp Pulse Resp BP Pulse Ox
97.5 F 59 17 112/53 97
03/18/25 03:20 03/18/25 06:00 03/18/25 06:00 03/18/25 06:00 03/18/25 06:00
I&O
03/16/25 03/17/25 03/18/25
06:59 06:59 06:59
Intake Total 400 / 400 960 / 960
Balance 400 / 400 960 / 960
Review of Systems
-
History Source: Patient
All other systems: Reviewed and negative
Respiratory: Reports Cough
Physical Exam
-
General: Other (Historian. )
HEENT: Moist Mucous Membranes
Respiratory: Clear to Auscultation and Other (4 L nasal cannula )
Cardiac: Regular Rhythm and S1/S2
GI: Nontender and Nondistended
Genito-urinary: No Costovertebral Tender
Musculoskeletal: No Cyanosis and No Edema
Neuro: Awake, Alert and Other (irritable, and non cooperative. )
Hematologic / Lymphatic: No Lymphadenopathy
Psych: Agitated
[2025-03-18] MEDS: PULMICORT 0.5 MG INH ×2 (07:50→19:33)
[2025-03-18] MEDS: DUONEB 3 ML INH ×4 (07:50→19:33)
[2025-03-18] MEDS: ZOLOFT 100 MG PO (08:38)
[2025-03-18] MEDS: LASIX PO (08:38)
[2025-03-18] MEDS: NORVASC PO (08:39)
[2025-03-18] MEDS: DELTASONE 30 MG PO (08:39)
[2025-03-18] MEDS: CASODEX 50 MG PO (08:40)
[2025-03-18] MEDS: LOW STRENGTH ASPIRIN 81 MG PO (08:40)
[2025-03-18] MEDS: TOPROL XL PO (08:41)
[2025-03-18] MEDS: ZITHROMAX 500 MG PO (08:41)
[2025-03-18] MEDS: KCL 30 MEQ PO (08:41)
[2025-03-18] MEDS: MUCINEX 600 MG PO ×2 (08:45→20:06)
--- NOTE | 2025-03-18 08:49 | SUR.OPER ---
on walking rounds earlier pt was AAOx3 very agitated and vocal re to going home. . Pt now asleep . Pt is non compliant with care and O2 needs.
--- NOTE | 2025-03-18 09:48 | WOUNDNOTE ---
[facility] RN note: Patient admitted with acute on chronic hypoxic respiratory failure. Patient admitted from [facility].
See H&P for complete history.
PMH: COPD on prednisone, respiratory failure, on home o2, RICARDO (Bipap), CHF, CAD, HTN, FL, bipolar, prostatic ca, pulmonary HTN, cardiac stent, dementia.
Wound Location and type/assessment: Patient admitted with: linear red area sacral/coccyx crease. Not open. Upper ear creases red suspect from chronic o2 use.
Appetite: good.
Pressure redistribution devices in place: [employer]Cloud air bed. Patient stands with supervision and moves self in bed.
Plan: Sacral shaped silicone border foam applied to sacral/coccyx. Air chair cushion given. Discussed with ARMIN Khan.
Care plan to be updated, will sign off. Call if needed.
--- NOTE | 2025-03-18 11:40 | PTCARENOTE ---
Pt sitting OOB to chair pt very argumentative
--- NOTE | 2025-03-18 13:24 | PTCARENOTE ---
Pt rings thompson and ask questions that do not make sense. Remains argumentative
--- NOTE | 2025-03-18 14:21 | W.DCSUMMARY ---
Discharge Summary
Discharge Data
Date of Admission: 03/16/25
Date of Discharge: 03/18/25
-
Pending Results: No
Hospital Course
Discharging Physician : Dr Ralph Kumar
Conrado Mast M.D
Disposition : [facility]
Primary care physician : Dr Adam Gallagher
Principal Discharge diagnosis : Severe COPD with chronic respiratory failure on 4 to 5 L of home oxygen and nighttime BiPAP.
Chronic Discharge diagnosis :
CHF
CAD
Hypertension
Stage 1 right inferior buttock pressure injury.( DECUBITUS ULCER)
Hospital Course :
74-year-old male with past medical history of COPD, chronic respiratory failure on 4 to 5 L of home oxygen and nighttime BiPAP, CHF, CAD, hypertension who presented to the ER from [facility] for evaluation of confusion and low pulse ox. Patient
was a very tangential historian.Apparently he had been in his normal state of health per long-term staff but has been declining to use BiPAP at night as previously instructed. Today was becoming increasingly confused. He was making repeated
calls to 911 claiming that someone was robbing him. Ultimately EMS crew was sent to the scene and he was noted to be hypoxic and was transported to the emergency room. He agreed to some mild shortness of breath but didn't seem to have any other
complaints. Blood gas 7.44/7.3, chronic compensated hypercapnia appears to be at baseline. Unlikely to be the etiology of altered mental status. Basic metabolic panel reviewed, serum bicarbonate chronically elevated between 38-42. MRSA screening,
influenza A, B, COVID-19 screen negative. Work up for CBC, CMP were done. Patient had normal WBC count, afebrile and a normal procalcitonin of 0.06 decided IV cefepime to stop. Started on Azithromycin 500 mg daily for a total of 3 days and IV
steroids which was switched to prednisone 30 mg daily for 3 more days to complete a 5-day course while on discharge.Advised the patient to resume outpatient follow-up with [facility], Dr. Adair, post discharge. patient declined sleep study and low-dose
CT scan for lung cancer screening and to use of noninvasive positive pressure ventilation. For Pulmonary hypertension, Echocardiogram in 11/2024 suggested estimated pulmonary artery pressure of 65 with preserved LVEF of 60 to 65%. Normal RV size
and function and suspected a combination of group II (HFpEF) and group III (COPD, hypoxia) PH. Continued to optimize volume with current dosage of Lasix, continued bronchodilators, supplemental oxygen. BNP elevated at 1050. Also GGO opacities on CXR
more suggestive of CHF exacerbation. Lasix twice daily were started at the course of the admission.
Important imaging findings :
CXR 02/2025:
1. Mild ground-glass opacity in both lower lungs. Diagnostic possibilities are (1) bilateral lower lobe pneumonia or (2) subsegmental atelectasis and scarring.
2. Mild left to right mediastinal shift consistent with chronic right lung volume loss.
3. Moderate cardiomegaly.
4. Mild interstitial and alveolar cardiogenic pulmonary edema.
5. Mild bilateral upper lobe emphysema.
CT Head 02/2025:
1. Moderate diffuse cerebral and cerebellar volume loss.
2. Moderate periventricular white matter leukoaraiosis in the frontal and parietal lobes.
3. Severe chronic left frontal and anterior ethmoid air cell sinusitis
Procedure findings :
None
Discharge Plan
-
Patient Disposition: Care Home/SNF
Discharge Diagnosis/Procedures: Acute on chronic hypoxic hypercapnic respiratory failure ;severe COPD
Condition: Fair
Diet: No restrictions
Activity: No restrictions and As tolerated
Driving Restrictions: Not until seen by your Dr
Bathing Restrictions: None
Other Services: PT and OT
Specialty Instructions: Weigh Daily- Call MD for wt gain/loss 3 lbs overnight/5 lbs in 1 week
Activity Restrictions/Additional Instructions:
Sacral/coccyx-protective sacral shaped silicone border foam, change every 3 days and as needed for loosened dressing. If foam ineffective, apply barrier ointment 3 times a day instead.
Pressure redistributing chair cushion (i.e. Air chair cushion).
Elevate heels off bed with pillow/s.
Instructions: Exacerbation of COPD (DC), *CBC Heart Failure Instructions
Referrals:
Adam Leiva DO [Family Provider, Internal Medicine]
Cresencio Adair MD [Active, Pulmonary Medicine]
Additional Discharge Medication Instructions: -Outpatient follow-up with [facility], Dr. Adair,
-TAKE 1 DOSE OF AZITHROMYCIN 500MG for 1 more day to complete 3 days course
-Continue 2 more days of prednisone 30 mg PO to complete 5 days steroid course.
Prescriptions:
Continued
aspirin 81 MG tablet,chewable
81 mg PO DAILY 30 Days Qty: 30 0RF
bicalutamide 50 mg tablet
50 mg PO DAILY
acetaminophen 325 mg Tablet
650 mg PO Q4HPRN PRN (Reason: mild pain/fever)
sertraline 50 mg Tablet
100 mg PO DAILY
magnesium hydroxide [Milk of Magnesia] 400 mg/5 mL suspension
30 ml PO DAILYPRN PRN (Reason: constipation)
bisacodyl 10 mg suppository
10 mg [place] DAILYPRN PRN (Reason: if MOM is ineffective after 24 hrs)
atorvastatin 20 mg Tablet
20 mg PO HS
ipratropium-albuterol 0.5 mg-3 mg(2.5 mg base)/3 mL solution for nebulization
3 ml inhalation R BID
potassium chloride 10 mEq Tablet Extended Release
30 meq PO DAILY
furosemide 80 mg Tablet
80 mg PO BID@0800,1600 Qty: 60 11RF
metoprolol succinate 25 mg Tablet Extended Release 24 Hr
25 mg PO DAILY Qty: 30 11RF
ipratropium-albuterol 0.5 mg-3 mg(2.5 mg base)/3 mL Solution For Nebulization
3 ml inhalation R Q4HPRN PRN (Reason: shortness of breath) Qty: 0 0RF
cyanocobalamin (vitamin B-12) [Vitamin B-12] 1,000 mcg Tablet
1,000 mcg PO DAILY Qty: 0 0RF
cholecalciferol (vitamin D3) 50 mcg (2,000 unit) Tablet
50 mcg PO DAILY Qty: 0 0RF
budesonide 0.5 mg/2 mL Suspension For Nebulization
0.5 mg inhalation R BID Qty: 60 0RF
prednisone 5 mg Tablet
5 mg PO MOWEFR
amlodipine [Norvasc] 5 mg Tablet
5 mg PO DAILY
fluticasone propionate 50 mcg/actuation [place],Suspension
2 spray INTRANASAL DAILY
menthol-zinc oxide [Moisture Barrier Ointment] 0.44-20.6 % Ointment
1 applic TOPICAL TID
Fleet Enema 19-7 gram/118 mL Enema
118 ml [place] DAILYPRN PRN (Reason: if no bm aftr duloclax)
Discharge Orders:
Discharge Patient (As Directed); Ordered 03/18/25
Ordered By: Derrick Kumar
Discharge Date and Time
Discharge Date/Time: 03/18/25 20:53
Print Language: BERMUDIAN
--- NOTE | 2025-03-18 14:48 | W.PN.PUL3 ---
Today's Communication / Plan
-
continue with current plan as below
Complete course of azithromycin
Complete course of prednisone
Lasix continues intravenous
Assessment
-
#1. Acute on chronic hypoxic and hypercapnic respiratory failure with severe COPD at baseline
- Spirometry 09/08/2021: FEV1 /FVC 40%, FEV1 0.97 L-30%, FVC 2.41 L -55%. Stable mixed ventilatory defect. Severe airflow obstruction and restriction. Stable compared to July 2017
- Blood gas 7.44/73, chronic compensated hypercapnia appears to be at baseline. Unlikely to be the etiology of altered mental status.-
- Basic metabolic panel reviewed, serum bicarbonate chronically elevated between 38-42.
- MRSA screen pending, influenza A, B, COVID-19 screen negative. Patient has normal WBC count, afebrile and a normal procalcitonin of 0.06, Remains on By mouth azithromycin cefepime has been discontinued.
- Continue azithromycin 500 mg daily for a total of 3 days
- Discontinue IV steroids, switch to prednisone 30 mg daily for 3 more days to complete a 5-day course.
- Patient will resume outpatient follow-up with [facility], Dr. Adair, post discharge. Clinic notes reviewed, patient has declined sleep study and low-dose CT scan for lung cancer screening in the past
- Patient declines use of noninvasive positive pressure ventilation. With his underlying COPD and chronic hypercapnia ideally patient needs to be on nocturnal positive pressure ventilation. This can be further discussed with the patient as
outpatient
#2. Pulmonary hypertension.
- Echocardiogram in 11/2024 suggested estimated pulmonary artery pressure of 65 with preserved LVEF of 60 to 65%. Normal RV size and function
- Suspect a combination of group II (HFpEF) and group III (COPD, hypoxia) PH
- Continue to optimize volume with current dosage of Lasix, continue bronchodilators, continue supplemental oxygen
Other medical diagnoses:
- History of coronary artery disease s/p PCI of LAD in 12/2021
- Acute on chronic Heart failure with preserved ejection fraction (LVEF 55%), elevated left ventricular end-diastolic pressure noted on cardiac cath in 12/2021. BNP elevated at 1050. Also GGO opacities on CXR more suggestive of CHF exacerbation.
Currently on Lasix twice daily, no pedal edema on exam, continue current management
- Acute metabolic encephalopathy. Patient's hypercapnia is at baseline and unlikely to be the etiology of change in mentation. Patient was observed earlier this morning awake, conversing with primary service. Presently sleeping comfortably, did
not awaken during exam
DVT prophylaxis: Remains on enoxaparin
GI prophylaxis: Not indicated
Data:
CXR 02/2025: 1. Mild ground-glass opacity in both lower lungs. Diagnostic possibilities are (1) bilateral lower lobe pneumonia or (2) subsegmental atelectasis and scarring.
2. Mild left to right mediastinal shift consistent with chronic right lung volume loss.
3. Moderate cardiomegaly.
4. Mild interstitial and alveolar cardiogenic pulmonary edema.
5. Mild bilateral upper lobe emphysema.
CT Head 02/2025: 1. Moderate diffuse cerebral and cerebellar volume loss.
2. Moderate periventricular white matter leukoaraiosis in the frontal and parietal lobes.
3. Severe chronic left frontal and anterior ethmoid air cell sinusitis
CT Chest 11/2024: Pneumonia in the right lung, greatest in the right lower lobe.
Small bilateral pleural effusions.
Moderate centrilobular emphysema.
Cardiomegaly.
Severe coronary artery calcifications. Please correlate with symptoms of and risk factors for coronary artery disease, with further workup as clinically appropriate.
Barium swallow 11/2024: No fluoroscopic evidence of airway aspiration
ECHO 07/2024: Normal left ventricular size and systolic function with LV ejection fraction
visually estimated 55%
Mild concentric left ventricular hypertrophy
Dilated right ventricle with low normal RV systolic function
Normal atrial dimensions
Trace mitral regurgitation
Mild tricuspid regurgitation
Estimated pulmonary artery pressure of 65-70 mmHg assuming a right atrial
pressure of 3 mmHg.
Prominent anterior fat pad present. No significant pericardial effusion.
Compared to prior study dated 04/09/2024, RV size and systolic function
previously reported normal. Otherwise no significant change; prior estimated
pulmonary artery systolic pressure 67 mmHg.
[facility] 12/2021: 1. Successful stenting of the mid and mid-distal LAD with a 3.0 x 20 mm Synergy stent in the mid LAD and a 2.5 x 16 mm Synergy stent in the mid-distal LAD. The more proximal stented segment was postdilated with a 3.0 mm noncompliant
balloon while the more distal segment was postdilated with a 2.5 mm noncompliant balloon
2. Elevated LVEDP
3. Hemodynamic assessment of the RCA: The angiographically intermediate tandem lesions in the mid and mid-distal RCA had an iFR which measured above the ischemic threshold at 0.91. PCI is deferred
Subjective Data
-
Date of Service:
Date of Service: March 18, 2025
Subjective:
Patient is sleeping comfortably. Did not awaken doing exam. Observed earlier on commode conversing to primary service
Objective Data
Data Reviewed
Vital Signs / I&O / Oxygen:
Vital Signs
Temp Pulse Resp BP Pulse Ox
98.2 F 69 19 90/58 81
03/18/25 11:00 03/18/25 13:00 03/18/25 13:00 03/18/25 10:00 03/18/25 13:00
Intake and Output
03/17/25 03/18/25 03/19/25
06:59 06:59 06:59
Intake Total 400 / 400 960 / 960
Balance 400 / 400 960 / 960
SaO2 81
Nasal Cannula flow liters per 4
minute
Physical Exam
General: Comfortable
HEENT: Normocephalic and Other (Large neck)
Cardiovascular: S1-S2, Regular Rhythm, Murmur (n) and Peripheral Edema (tr)
Respiratory: Wheeze (n), Crackles (n), Rhonchi (n) and Non-Labored Respirations
GI: Soft, Non Distended ( obese) and Non Tender
Neurology: Lethargic ( sleeping comfortably)
Skin: Rash (n)
Labs/Micro/Reports
Lab Data
03/18/25 05:40
03/16/25 17:16
Microbiology
03/17/25 04:27 Nose MRSA Screen - Final
No Methicillin Resistant Staphylococcus aureus isolated.
03/16/25 17:37 Nasal Swab Influenza Types A & B (NICOLE) - Final
Negative for Influenza A & B, NAAT
Negative results must be combined with clinical observations
and patient history.
Nucleic Acid Amplification test (NAAT)performed on the
[employer] platform.
--- NOTE | 2025-03-18 15:56 | W.PN.UPDATE ---
Update Note
Progress Note Update
Seen and examined by me independently in collaboration with the medical planner.
Lab data and imaging data reviewed.
Addendum as below :
Resolved encephalopathy. Patient today alert and oriented. No hallucinations. He tells me he has issue with the facemask and that is why not able to tolerate BiPAP at the facility. Patient will need to follow with pulmonary as an outpatient for
mask fitting. Pulmonary following in house. They recommend complete the course of Zithromax and prednisone.
Patient oxygenation stable on home FiO2. Chest clear without any wheeze.
Medically stable for discharge back to facility today.
Total time of discharge 31 minutes
--- NOTE | 2025-03-18 16:37 | CM ---
Patient from [facility] SNF with Dx acute hypoxic respiratory failure/metabolic encephalopathy, COPD exacerbation. O2 4L. Refusing BiPAP. PT & OT 03/17; return to NH/LTC.
Met with patient regarding return to [facility] today; patient argumentative when entered room thinking CM was a physician, speaking loudly about things unrelated to his d/c plans, and making somewhat non-sensical and tangential conversation at
times. He seemed to understand he would be returning to [facility] today by ambulance, and he agreed with the plan. IMM explained and patient declined to sign- copy of IMM given to patient.
Spoke with Camila, patient's sister; provided update patient will be discharging back to SNF today. She requested an update from the physician---> TT message to Resident José and Dr Orellana.
Spoke with Chris, Client Director [facility] & Chaz, [facility]; they are able to accept the patient back today. The for report [phone], fax [phone]. Chris is okay with 8:30pm transport time.
Plan return to [facility] today by ambulance.
[2025-03-18] MEDS: LASIX 80 MG PO (16:43)
--- NOTE | 2025-03-18 16:51 | PTCARENOTE ---
attempted to call report no answer
[2025-03-18] MEDS: LOVENOX SC (17:27)
--- NOTE | 2025-03-18 17:39 | PTCARENOTE ---
Report called to [facility]. Sister Camila notified
[2025-03-18] MEDS: LIPITOR 20 MG PO (20:06)
--- NOTE | 2025-03-18 20:33 | PTCARENOTE ---
EMS arrived for patients transport. Left fa IV removed, hygiene provided prior to departure. Report given to EMS Alexx.
--- NOTE | 2025-03-19 13:32 | PN.CDI ---
CDI
- -
CDI:
Physician Documentation Request
Admit Date: 03/16/25 20:02
Dear Doctor José,
Patient admitted with severe COPD.
03/18 Nursing skin assessment, 'Stage 1 right inferior buttock pressure injury, POA.'
Physician documentation of the type and location of wounds is required for compliant documentation. Based on the above clinical findings and your assessment, please provide the following in your progress note:
Type (etiology) of ulcer/wound:
- Pressure (decubitus) ulcer
- Other
- Unable to determine
For a pressure ulcer, please also include the stage* of the ulcer:
- Stage 1 - Skin intact, non-blanchable redness
- Stage 2 - Partial thickness loss of dermis, includes intact or open blister
- Stage 3 - Full thickness tissue not including bone, tendon or muscle
- Stage 4 - Full thickness tissue loss, including exposed bone, tendon or muscle
- Unstageable - Full thickness loss in which the base of the ulcer is covered by slough (yellow, silverio, perez, green or brown) and/or eschar (silverio, brown or black) in the wound bed.
- Unable to determine
Use of terms such as suspected, likely, concern for, or probable (associated with a specific diagnosis that is being evaluated, monitored, or treated as if it exists) are acceptable and can be coded in the inpatient setting, when documented at the
time of discharge.
Thank you,
Cecily PONCE,RN,CCDS
CDI Specialist
Available via [place] text
Please use your independent medical judgment in providing your response.
*Source: National Pressure Ulcer Advisory Panel (NPUAP)
== END 2025-03-18 20:53 | DRG 190 ==
LOC: IMU 20:02
PROVIDERS: Registered Nurse; ADMITTING PHYSICIAN Internal Medicine; ATTENDING PHYSICIAN Internal Medicine; CONSULT PHYSICIAN Internal Medicine; EMERGENCY PHYSICIAN Emergency Medicine; FAMILY PHYSICIAN Internal Medicine
DX: J44.1 Chronic obstructive pulmonary disease with (acute) exacerbation (principal); G93.41 Metabolic encephalopathy; J18.9 Pneumonia, unspecified organism; J96.21 Acute and chronic respiratory failure with hypoxia; J96.22 Acute and chronic respiratory failure with hypercapnia; I50.33 Acute on chronic diastolic (congestive) heart failure; F03.94 Unspecified dementia, unspecified severity, with anxiety; F03.93 Unspecified dementia, unspecified severity, with mood disturbance; N17.9 Acute kidney failure, unspecified; I25.10 Atherosclerotic heart disease of native coronary artery without angina pectoris; I11.0 Hypertensive heart disease with heart failure; L89.311 Pressure ulcer of right buttock, stage 1; J44.0 Chronic obstructive pulmonary disease with (acute) lower respiratory infection; Z85.46 Personal history of malignant neoplasm of prostate; I27.20 Pulmonary hypertension, unspecified; G47.33 Obstructive sleep apnea (adult) (pediatric); Z95.5 Presence of coronary angioplasty implant and graft; K59.00 Constipation, unspecified; E78.00 Pure hypercholesterolemia, unspecified; Z79.899 Other long term (current) drug therapy; Z79.51 Long term (current) use of inhaled steroids; D63.8 Anemia in other chronic diseases classified elsewhere; F32.A Depression, unspecified; Z87.891 Personal history of nicotine dependence; Z99.81 Dependence on supplemental oxygen; I25.2 Old myocardial infarction; Z11.52 Encounter for screening for COVID-19; R31.29 Other microscopic hematuria; Z91.199 Patient's noncompliance with other medical treatment and regimen due to unspecified reason
CPT/HCPCS: 70450; 71045; 80053; 82805; 83880; 84145; 85025; 87070; 87502; 87811; 93005; 94640; 94660; 96374; 97162; 97167; 99285

== ENCOUNTER 2025-06-03 11:26 | Inpatient (IN) | payer MEDICARE, OTHER, SELFPAY ==
[2025-06-03 08:06] VITALS: BP 116/61
[2025-06-03 08:13] VITALS: BMI 28.6
[2025-06-03 08:14] VITALS: BP 116/61
[2025-06-03 08:47] LABS: INR 1.16; PT 15.1 Sec (11.4-14.6)
[2025-06-03 08:48] LABS: APTT 32.7 Sec (23.4-35.0); Hematocrit 31.8 % (39.0-52.0); Hemoglobin 9.4 g/dL (13.0-18.0); Mean Corp Hgb Conc. 29.6 g/dL (33.0-37.0); Mean Corpuscular Volume 75.5 fL (80.0-94.0); Nucleated Red Blood Cells % 0 % (-); Platelet Count 312 10^3/uL (130-400); Red Cell Dist. Width 16.1 % (11.5-14.5)
--- NOTE | 2025-06-03 09:05 | ED.GENMED ---
History of Present Illness
<Calin Dumas PA-C - Last Filed: 06/03/25 14:03>
General
Chief Complaint: Change in Mental Status
Source: records, skilled nursing and skilled nursing records
Time Seen by Provider: 06/03/25 08:40
History of Present Illness
History of Present Illness:
74-year-old male with past medical history of COPD (on 2 L via nasal cannula at baseline), CAD status postacute OR with 2 cardiac stents, previous renal failure, anxiety and bipolar disorder presenting to the emergency department via EMS from
[facility] where patient is a long-term resident for evaluation of reported change in mental status. Patient unable to provide any history due to current mental status, EMS stating that staff at [facility] notes that patient is usually able
to answer all questions and oriented at baseline. Patient was unable to provide any history so I contacted [facility] and spoke to patient's nurse who states last night patient was very agitated, hit nursing staff which is not typical for him
and this morning was unable to answer questions. They do note that at baseline patient does have some mumbled/garbled speech which he seems to continue to have today. They do note that patient has not been wearing his BiPAP machine at night and
the last time this happened he ended up with CO2 retention and suspected hypercapnia causing his mental status change
Past History
<Calin Dumas PA-C - Last Filed: 06/03/25 14:03>
Past History
ED Past Medical History: CAD, COPD, HTN, OR, Psychiatric and Other ( Adenocarcinoma of prostate, Muscle wasting and atrophy, Hypertension, Anxiety, NSTEMI (non-ST elevated myocardial infarction), Nocturia, Heart failure with preserved ejection
fraction, VT (ventricular tachycardia), Cellulitis, Metabolic encephalopathy, Acute respiratory failure with hyp)
ED Past Surgical History: Cardiac
Social History
Tobacco: Smoker
Alcohol: None
Drug: None
Personal:
Living: skilled nursing
Employment: Not employed
Family History
Family History: Unable to obtain (Patient obtunded)
Review of Systems
<Calin Dumas PA-C - Last Filed: 06/03/25 14:03>
Review of Systems
All Other Systems: ROS reviewed and negative except as documented in HPI and ROS
Phy Exam
<MIRNA Mosley Last Filed: 06/03/25 14:03>
Physical Exam
Physical Exam:
GENERAL: Alert , in no apparent distress
HEAD: Normocephalic atraumatic
EYE: clear conjunctiva
NECK: Supple
ENT: o/p clr, mmm.
CARDIAC: Regular rate and rhythm .
LUNGS: Clear breath sounds bilaterally, no acute respiratory distress, no wheezes/rales/rhonchi, on 2 L via nasal cannula,
ABDOMEN: Soft, without focal tenderness, no r/g, no cvat
NEUROLOGICAL: Alert and oriented to self but not place nor time, follows commands
SKIN: Warm and dry, skin intact.
MUSCULOSKELETAL: trace ankle nonpitting bilateral edema, well perfused.
PSYCH: Normal and appropriate interaction.
Scores
<MIRNA Mosley Last Filed: 06/03/25 14:03>
Heart Failure Risk
Heart Failure Risk Score: Not Applicable
Heart Score for Chest Pain Patients
STEMI patient?: Not applicable
Withdrawal Assessment of Alcohol
Withdrawal Assessment Completed?: Not applicable
Course
<MIRNA Mosley Last Filed: 06/03/25 14:03>
Orders/Labs/Results
Orders:
Orders
06/03/25 08:28
Complete Blood Count/With Diff Urgent
PTT Urgent
Prothrombin Time Urgent
06/03/25 08:40
Venous Blood Gas Urgent
%Oxygen/Room Air: 95% 2L NC
06/03/25 08:42
Electrocardiogram (*1) Urgent
Reason for Study: Other
Other Reason for Exam: change in mental status
EKG- Treatment ONCE
06/03/25 08:49
Urinalysis Reflex To Culture Urgent
06/03/25 08:52
CT Head W/o Iv Contrast Urgent
Comment:
Reason For Exam: change in mental status
06/03/25 08:53
CR Chest Portable - 1 View Urgent
Comment:
Reason For Exam: change in mental status
Reason Study Needs to be Portable: Unable to Transport
06/03/25 09:08
Comprehensive Metabolic Panel Urgent
NT-proBNP Urgent
06/03/25 10:26
0.9% Sodium Chloride 500 ml [Nss] 500 ml IV BOLUS
06/03/25 10:52
Admit/Transfer Patient As Directed
Co-Sign Provider:
Level of Care: Inpatient admission
Assign to:: Telemetry
Physician / Group: sarah arroyo
Diagnosis: Acute metabolic encephalopathy
Reason for Telemetry: Other
Other Reason for Telemetry: Hypercapnia
Date to Stop Telemetry: 06/05/25
Time to Stop Telemetry: 11:00
Reason for Hospitalization: Acute metabolic encephalopathy
Expected length of stay greater than two midnights?: Yes
ELOS- Estimated Length of Stay in days: 2
I certify the patient meets the requirements for IP care: Yes
06/03/25 10:53
PRN Pain Medication Management As Directed
May give lesser potent ordered pain med per pt: Yes
preference::
Protocol:: Medication orders for pain may be administered in a
manner that supports deferring to patient preference
when the pt is:
- Requesting an ordered lesser potent pain medication.
Least to most potent pain medications are defined
as: acetaminophen < NSAID < tramadol < opioids
(morphine, oxycodone, hydromorphone).
- Requesting a lesser dose of the same medication IF
ORDERED.
- Requesting a less intrusive route of administration
if both routes are prescribed by the provider (PO <
IV).
06/03/25 10:57
Code Status As Directed
Resuscitation Status: Full Code
06/05/25 11:00
DC Protocol for Telemetry ONCE
Abnormal Lab Results
06/03/25 06/03/25 06/03/25
08:28 08:40 09:08
RBC 4.21 L 10^6/uL
(4.70-6.10)
Hgb 9.4 L g/dL
(13.0-18.0)
Hct 31.8 L %
(39.0-52.0)
MCV 75.5 L fL
(80.0-94.0)
MCH 22.3 L pg
(27.0-31.0)
MCHC 29.6 L g/dL
(33.0-37.0)
RDW 16.1 H %
(11.5-14.5)
Absolute Monos (auto) 0.9 H 10^3/uL
(0.1-0.6)
Lymphocytes % 17.0 L %
(20.5-51.1)
Monocytes % 10.9 H %
(1.7-9.3)
PT 15.1 H Sec
(11.4-14.6)
VBG pH 7.54 H
(7.32-7.43)
VBG pCO2 63 H mmHg
(35-48)
VBG pO2 54 H mmHg
(30-50)
VBG HCO3 53.9 H mmol/L
(22-27)
Chloride 85 L mmol/L
(98-107)
Carbon Dioxide 51 H mmol/L
(22-30)
BUN 31 H mg/dl
(9-20)
Creatinine 1.5 H mg/dL
(0.7-1.3)
06/03/25 08:28
06/03/25 09:08
Vital Signs
Initial and Last Documented VS:
Initial Vital Signs
Temp Pulse Resp BP Pulse Ox
98.3 F 71 24 116/61 96
06/03/25 08:06 06/03/25 08:06 06/03/25 08:06 06/03/25 08:06 06/03/25 08:06
Last Documented Vital Signs
Temp Pulse Resp BP Pulse Ox
98.3 F 73 20 116/61 98
06/03/25 08:06 06/03/25 08:14 06/03/25 08:14 06/03/25 08:14 06/03/25 09:07
Inalt;Mason Leal DO - Last Filed: 06/03/25 11:00>
Orders/Labs/Results
Orders:
Orders
06/03/25 08:28
Complete Blood Count/With Diff Urgent
PTT Urgent
Prothrombin Time Urgent
06/03/25 08:40
Venous Blood Gas Urgent
%Oxygen/Room Air: 95% 2L NC
06/03/25 08:42
Electrocardiogram (*1) Urgent
Reason for Study: Other
Other Reason for Exam: change in mental status
EKG- Treatment ONCE
06/03/25 08:49
Urinalysis Reflex To Culture Urgent
06/03/25 08:52
CT Head W/o Iv Contrast Urgent
Comment:
Reason For Exam: change in mental status
06/03/25 08:53
CR Chest Portable - 1 View Urgent
Comment:
Reason For Exam: change in mental status
Reason Study Needs to be Portable: Unable to Transport
06/03/25 09:08
Comprehensive Metabolic Panel Urgent
NT-proBNP Urgent
06/03/25 10:26
0.9% Sodium Chloride 500 ml [Nss] 500 ml IV BOLUS
06/03/25 10:52
Admit/Transfer Patient As Directed
Co-Sign Provider:
Level of Care: Inpatient admission
Assign to:: Telemetry
Physician / Group: sarah arroyo
Diagnosis: Acute metabolic encephalopathy
Reason for Telemetry: Other
Other Reason for Telemetry: Hypercapnia
Date to Stop Telemetry: 06/05/25
Time to Stop Telemetry: 11:00
Reason for Hospitalization: Acute metabolic encephalopathy
Expected length of stay greater than two midnights?: Yes
ELOS- Estimated Length of Stay in days: 2
I certify the patient meets the requirements for IP care: Yes
06/03/25 10:53
PRN Pain Medication Management As Directed
May give lesser potent ordered pain med per pt: Yes
preference::
Protocol:: Medication orders for pain may be administered in a
manner that supports deferring to patient preference
when the pt is:
- Requesting an ordered lesser potent pain medication.
Least to most potent pain medications are defined
as: acetaminophen < NSAID < tramadol < opioids
(morphine, oxycodone, hydromorphone).
- Requesting a lesser dose of the same medication IF
ORDERED.
- Requesting a less intrusive route of administration
if both routes are prescribed by the provider (PO <
IV).
06/03/25 10:57
Code Status As Directed
Resuscitation Status: Full Code
06/05/25 11:00
DC Protocol for Telemetry ONCE
Abnormal Lab Results
06/03/25 06/03/25 06/03/25
08:28 08:40 09:08
RBC 4.21 L 10^6/uL
(4.70-6.10)
Hgb 9.4 L g/dL
(13.0-18.0)
Hct 31.8 L %
(39.0-52.0)
MCV 75.5 L fL
(80.0-94.0)
MCH 22.3 L pg
(27.0-31.0)
MCHC 29.6 L g/dL
(33.0-37.0)
RDW 16.1 H %
(11.5-14.5)
Absolute Monos (auto) 0.9 H 10^3/uL
(0.1-0.6)
Lymphocytes % 17.0 L %
(20.5-51.1)
Monocytes % 10.9 H %
(1.7-9.3)
PT 15.1 H Sec
(11.4-14.6)
VBG pH 7.54 H
(7.32-7.43)
VBG pCO2 63 H mmHg
(35-48)
VBG pO2 54 H mmHg
(30-50)
VBG HCO3 53.9 H mmol/L
(22-27)
Chloride 85 L mmol/L
(98-107)
Carbon Dioxide 51 H mmol/L
(22-30)
BUN 31 H mg/dl
(9-20)
Creatinine 1.5 H mg/dL
(0.7-1.3)
06/03/25 08:28
06/03/25 09:08
Vital Signs
Initial and Last Documented VS:
Initial Vital Signs
Temp Pulse Resp BP Pulse Ox
98.3 F 71 24 116/61 96
06/03/25 08:06 06/03/25 08:06 06/03/25 08:06 06/03/25 08:06 06/03/25 08:06
Last Documented Vital Signs
Temp Pulse Resp BP Pulse Ox
98.3 F 73 20 116/61 98
06/03/25 08:06 06/03/25 08:14 06/03/25 08:14 06/03/25 08:14 06/03/25 09:07
<Calin Dumas PA-C - Last Filed: 06/03/25 14:03>
MDM/Problems Addressed
Differential Diagnosis Includes:
Hypercapnia causing acute mental status change
COPD exacerbation
CHF
UTI
ICH
COVID/Flu
Pneumonia
Electrolyte imbalance
MDM/Problems Addressed:
74-year-old male presenting to the ER from long-term care facility for evaluation of change in mental status. intermediate notes patient has not been using his BiPAP machine at night, similar presentation to the 3 months ago resulting in
hypercapnia and respiratory distress, needed admission for BiPAP and respiratory support. Today patient is without any significant respiratory distress and otherwise hemodynamically stable. I do suspect a component of hypercapnia causing patient's
change in mental status given his known chronic medical condition. Will obtain CT of the head although no focal neurologic deficits noted. Possible admission
Chronic conditions affecting care: COPD
Acute Exacerbation and/or Progression of Chronic Illness: COPD
<Calin Dumas PA-C - Last Filed: 06/03/25 14:03>
*Radiology
Radiology exam reviewed: radiology read reviewed
*Pulse Oximetry
SaO2: 98
Nasal Cannula flow liters per minute: 2
Oxygen Mode of Delivery: Room air
Patient hypoxic: no
*EKG
Heart Rate: 68
Rate: normal
Rhythm: sinus
[place]: left axis deviation
Ischemia: no ischemia
*Cattle Tester Interpretation
Rate: normal
Heart Rate: 79
Rhythm: sinus
*Critical Care Note
Total Time (30-74mins, 75-104mins- exclusive of procedures): Not Applicable
Data Reviewed
Review of Other/Old Records Reveals: Labs, Records and Discharge Summary
Source: patient and records
<Calin Dumas PA-C - Last Filed: 06/03/25 14:03>
Patient Management
Discussion with other providers: Hospitalist and intermediate staff
Escalation/DeEscalation of care consider admission/obs:
Labs show a mild anemia, patient does have an CLEMENTINE. VBG shows a respiratory alkalosis, bicarb elevated. Given patient's change in mental status past his baseline combined with his acute kidney injury will admit for further evaluation. Hospitalist
team notified and accepts for continued evaluation and treatment.
ED Attending Note
<Calin Dumas PA-C - Last Filed: 06/03/25 14:03>
-
Portions of this chart may have been created with voice recognition software.� Occasional wrong word or��sound alike� substitutions may have occurred due to the inherent limitations of voice recognition software.
<Mason Leal DO - Last Filed: 06/03/25 11:00>
ED Attending Note
Patient seen and examined by attending physician: Yes
I performed the substantive portion of visit, reviewed & personally made and approve the management plan that is documented in note by myself or TAPAN.: Yes
ED Attending Note:
Patient sent to the emergency room from [facility] where they observed the patient to be little confused and more aggressive than normal. Patient has a history of significant COPD and has not been using his BiPAP. No known fever or chills.
Patient himself offers no complaints other than wanting some kimberlyn yoli
General: Awake, Alert, Oriented X2. Appears chronically ill and disheveled
Vitals: unremarkable
Head: Atraumatic
Eyes: Pupils equal, EOMI
Throat: Airway intact, no exudates
Neck: Trachea midline
Lungs: Decreased aeration bilaterally, mild expiratory wheezing
Heart: Regular rate, no murmurs
Abd: Soft, Nontender, No pulsatile mass
Neuro: Cranial nerves intact, muscle strength equal bilaterally
Skin: Warm, dry, no rash
Extremities: pulses equal b/l, no edema
Patient has a nonfocal neurologic exam. Labs show stable CBC. Venous blood gas actually shows a metabolic alkalosis combined with a chronic respiratory acidosis. Mild dehydration suggested by elevation of creatinine. Patient will require
hospitalization for further evaluation, hydration. CT scan shows no acute abnormality
Discharge Plan
Departure
Patient Disposition: Admit
Date of Disposition: 06/03/25
Time of Disposition: 10:07
Presentation/result/management discussed w/ accepting MD/DO: Hospitalist
Discharge Problem:
Altered mental status, Anemia, CLEMENTINE (acute kidney injury)
Interventions
Interventions:
*Risk Screen - Suicide Last Done: 06/03/25 08:19
*General Assessment Last Done: 06/03/25 08:19
*Neglect/Abuse Screening Last Done: 06/03/25 08:19
*ED- Fall Risk Assessment Last Done: 06/03/25 08:19
*ED COVID-19 Vaccine History Last Done: 06/03/25 08:19
*ED Influenza Vaccine History Last Done: 06/03/25 08:19
ED- Neurological Assessment Last Done: 06/03/25 08:22
[2025-06-03 09:06] LABS: Venous Blood Gas B.E. 27.7 mmol/L (-4 to +4); Venous Blood Gas O2 Sat % 88.4 %
[2025-06-03 09:43] LABS: ALT (SGPT) 16 U/L (0-50); AST (SGOT) 24 U/L (17-59); Albumin 3.8 g/dl (3.5-5.0); Alkaline Phosphatase 85 U/L (38-126); Blood Urea Nitrogen 31 mg/dl (9-20); Calcium 9.0 mg/dl (8.4-10.2); Chloride 85 mmol/L (98-107); Estimated Creatinine Clearance 45 ml/min; Glucose 99 mg/dl (70-99); Potassium 3.8 mmol/L (3.5-5.1); Sodium 140 mmol/L (135-145); Total Protein 7.1 g/dl (6.3-8.2); eGFR 48.25
[2025-06-03 10:01] LABS: Carbon Dioxide 51 mmol/L (22-30)
--- NOTE | 2025-06-03 10:33 | HPS.HSE ---
Family Physician
-
Family Physician: Adam Leiva
Chief Complaint
-
Change in mental status
History of Present Illness
74-year-old male with past medical history of COPD, chronic respiratory failure, wearing BiPAP at night (on 2 L via nasal cannula at baseline), CAD status postacute [place] with 2 cardiac stents, previous renal failure, anxiety and bipolar disorder
presenting to the emergency department via EMS from [facility] where patient is a long-term resident for evaluation of reported change in mental status. Patient cannot provide interval history, is very confused at baseline.
Also of note as per residential staff he was not wearing his BiPAP machine at night.
In the ER ABG done shows pCO2 level of 66.
Patient is a poor historian but denies any chest pain or shortness of breath.
Medical History
Past Medical History
Past Medical History: Reports Other
Additional Past Medical History:
MO
CAD
COPD
CHF
HTN
HLD
BIpolar
prostate ca
anxiety
pulmonary HTN
RICARDO
Past Surgical History: Reports Other
Additional Past Surgical History:
tonsillectomy
cardiac stent
Social History
Unable to obtain full social history at this time due to: Dementia
Family History
Family History: Not pertinent
Allergies / Home Medications
Allergies reflects when Allergies were last updated in [employer].
Home Medications with original date entered in [employer]
Allergy/Medication List:
Allergies
Allergy/AdvReac Type Severity Reaction Status Date / Time
No Known Allergies Allergy Verified 03/16/25 16:19
Home Medications
aspirin 81 mg chewable tablet 81 mg PO DAILY Heart disease/condition 30 days #30 tabs 04/01/22
bicalutamide 50 mg tablet 50 mg PO DAILY Cancer 03/31/23
acetaminophen 325 mg tablet 650 mg PO Q4HPRN PRN mild pain/fever 01/31/24
bisacodyl 10 mg rectal suppository 10 mg SC DAILYPRN PRN if MOM is ineffective after 24 hrs 01/31/24
magnesium hydroxide 400 mg/5 mL oral suspension (Milk of Magnesia) 30 ml PO DAILYPRN PRN constipation 01/31/24
sertraline 50 mg tablet 100 mg PO DAILY Mental Health/Anxiety 01/31/24
atorvastatin 20 mg tablet 20 mg PO HS High Cholesterol 08/08/24
ipratropium 0.5 mg-albuterol 3 mg (2.5 mg base)/3 mL nebulization soln 3 ml inhalation R BID Lung/Breathing Issues 08/09/24
potassium chloride 10 mEq tablet,extended release 30 meq PO DAILY Electrolyte Repletion 11/15/24
budesonide 0.5 mg/2 mL suspension for nebulization 0.5 mg (2 mL) inhalation R BID Lung/breathing issues #60 mL 12/18/24
cholecalciferol (vitamin D3) 50 mcg (2,000 unit) tablet 50 mcg PO DAILY def #0 tabs 12/18/24
cyanocobalamin (vitamin B-12) 1,000 mcg tablet (Vitamin B-12) 1,000 mcg PO DAILY Supplement #0 tabs 12/18/24
furosemide 80 mg tablet 80 mg PO BID@0800,1600 Heart Failure #60 tabs 12/18/24
ipratropium 0.5 mg-albuterol 3 mg (2.5 mg base)/3 mL nebulization soln 3 ml inhalation R Q4HPRN PRN shortness of breath #0 mL 12/18/24
metoprolol succinate 25 mg tablet,extended release 24 hr 25 mg PO DAILY Heart disease/condition #30 tabs 12/18/24
amlodipine 5 mg tablet (Norvasc) 5 mg PO DAILY Blood Pressure 02/23/25
fluticasone propionate 50 mcg/actuation nasal spray,suspension 2 spray intranasal DAILY Congestion 02/23/25
menthol 0.44 %-zinc oxide 20.6 % topical ointment (Moisture Barrier Ointment) 1 applic topical TID BUTTOCK 02/23/25
prednisone 5 mg tablet 5 mg PO MOWEFR COPD 02/23/25
sodium phosphates 19 gram-7 gram/118 mL enema (Fleet Enema) 118 ml SC DAILYPRN PRN if no bm aftr duloclax 03/16/25
divalproex 250 mg tablet,delayed release (Depakote) 250 mg PO TID 06/03/25
Review of Systems
-
Unable to obtain full review of systems at this time due to: Other (Patient is poor historian but denies any complaint currently .)
A 12 point ROS was completed and negative except as noted: Yes
Constitutional: Reports Fatigue
Respiratory: Denies Trouble Breathing
Cardiac: Denies Chest Pain
Abdomen/GI: Denies Abdominal Pain, Nausea or Vomiting
Physical Exam
Vital Signs
Vital Signs
Temp Pulse Resp BP Pulse Ox
98.3 F 73 20 116/61 98
06/03/25 08:06 06/03/25 08:14 06/03/25 08:14 06/03/25 08:14 06/03/25 09:07
Physical Exam
General: Well Developed, Well Nourished, No Apparent Distress, Comfortable and Good Appetite; No Pain, Chills or Sweats
HEENT: NormoCephalic, Moist mucous membranes, Atraumatic, Good Dentition, PERRLA, Nose Appears Normal and Ears Appear Normal
Respiratory: Rales and Rhonchi
Cardiac: S1/S2 and Regular Rhythm
Breast: Deferred by me
GI: Soft, Non Tender, Non Distended and Normal Bowel Sounds
Genito-urinary: Deferred by me
Musculoskeletal: No Clubbing, No Cyanosis and No Edema
Skin: Warm; No Rash, Jaundice, Ulcers, Lesions or Decubitus Ulcers
Neuro: Awake, Alert, Oriented, AO x 3, No Motor Deficits, Nonfocal/grossly intact and Cranial Nerves Intact
Hematologic/Lymphatic: No Lymphadenopathy
Psych: Calm
Laboratory Results
-
06/03/25 08:28
06/03/25 09:08
Laboratory Results
PT 15.1 Sec (11.4-14.6) H 06/03/25 08:28
INR 1.16 06/03/25 08:28
APTT 32.7 Sec (23.4-35.0) 06/03/25 08:28
Total Bilirubin 0.6 mg/dl (0.2-1.3) 06/03/25 09:08
AST 24 U/L (17-59) 06/03/25 09:08
ALT 16 U/L (0-50) 06/03/25 09:08
Alkaline Phosphatase 85 U/L (38-126) 06/03/25 09:08
Data Reviewed
-
Diagnostic Radiology: Report Reviewed by me
CT Scan: Report Reviewed by me
Medical Tests (Nuc Med, Echo, EKG etc): Report Reviewed by me
Lab Data: Labs Reviewed by me
Old Records: Reviewed
Impression/Plan
-
IMPRESSION:
74-year-old male with past medical history of COPD (on 2 L via nasal cannula at baseline), CAD status postacute [place] with 2 cardiac stents, previous renal failure, anxiety and bipolar disorder presenting to the emergency department via EMS from
[facility] where patient is a long-term resident for evaluation of reported change in mental status
Assessment/plan
Acute metabolic encephalopathy
Possible secondary to CO2 retention.
Urinalysis pending
VBG shows pH 7.54, pCO2 63
Continue home biPAP
Recent admission on February with similar presentation.
Acute on chronic hypercapnic respiratory failure
Chronic hypoxic respiratory failure at baseline oxygen 2 L
severe COPD at baseline
VBG shows pH 7.54, pCO2 63
Patient awake, but not fully oriented
-Currently pt is on 2 L nasal cannula which is baseline
Chest X ray doen shows Pulmonary interstitium at least top normal, cannot exclude acute interstitial process such as pneumonitis or edema.
Continue home and
Patient takes prednisone at home 5 mg Tuesday/Tuesday/Tuesday
No role for antibiotic currently since no leukocytosis or fever
Outpatient follow-up with Dr. Madrid
Pulmonary hypertension:
- Echocardiogram in 11/2024 suggested estimated pulmonary artery pressure of 65 with preserved LVEF of 60 to 65%. Normal RV size and function
Optimize volume with current doses of Lasix bronchodilators supplemental oxygen
Chronic diastolic CHF
Continuing with Lasix 80 mg
Most recent echo in November 2024 showed :
Normal left ventricular size and systolic function. No regional wall motion
abnormalities are seen. LV ejection fraction is 60-65% by visual assessment.
Mild concentric left ventricular hypertrophy.
Normal right ventricular size. Normal right ventricular systolic function.
Mild mitral regurgitation.
Mild tricuspid regurgitation. Estimated pulmonary artery pressure of 65 mmHg.
Assuming a right atrial pressure of 3 mmHg.
CAD with history of PCI
Aspirin 81 mg ,statin 20 mg , Metoprolol 25 mg
Prostate cancer history
cont bicalutamide
Depression
continue Zoloft
History�of�hypertension
Continue home meds
History of hyperlipidemia
Continue�statin
Abnormal labs
�
CODE STATUS:�Full�code
DVT�prophylaxis:�Lovenox
Diet:�cardiac�diet
Total�time�spent�on�today�s�encounter�was�75�minutes�which�included�time�spent�in�counseling�the�patient/family�regarding�diagnosis�and�treatment�plan�as�listed�above,�goals�of�care,�and�symptom�management.�Case�was�discussed�with�nursing�staff,�spec
ialists,�and�care�coordinators/case�management.�All�labs�and�imaging�personally�reviewed�by�me.�Remainder�the�time�spent�in�detailed�review�of�previous�records,�lab�data,�imaging,�and�other�medical�provider�documentation.
�
[2025-06-03] MEDS: NSS 500 IV (11:36)
--- NOTE | 2025-06-03 12:28 | CM ---
CM spoke with nursing at [facility]
Pt is a LTC resident with MA bed-hold
Pt is able to ambulate short distances with use of a WW and stand-by assist, transfers with stand-by assist
Pt is mostly in his W/C which he self propels for longer distances
He is a 1 person assist for all personal care tasks, able to feed self
Pt is mostly alert and oriented with forgetfulness and some agitation, no physical aggression
Pt is on 2L O2 continuous, he has an order for a bipap which he refuses almost every night
Skin skin integrity- no wounds
PCP- Adam Leiva
Rx- [facility]
Return SNF referral sent via [facility]
Call to sister/Camila with update, she is very involved in pt's care
Discharge Disposition- return to [facility] for LTC
[2025-06-03 15:34] VITALS: BP 118/59; BMI 26.8
--- NOTE | 2025-06-03 15:45 | PTCARENOTE ---
report received. aaox1. forgetful and withdrawn. nsr. 3lnc. call thompson in reach. plan of care updated. will monitor.
[2025-06-03 16:00] VITALS: BMI 26.8
[2025-06-03] MEDS: DELTASONE 5 MG PO (16:05)
[2025-06-03] MEDS: DEPAKOTE (12 HR RELEASE) 250 MG PO ×2 (16:09→23:51)
--- NOTE | 2025-06-03 16:24 | PTOTSP ---
Speech Therapy Evaluation:
Pt with chronic risk factors of dysphagia including COPD, chronic respiratory failure, and CHF, acutely compounded by metabolic encephalopathy in the setting of possible CO2 retention. Despite this, oropharyngeal swallow grossly functional at
bedside. Previous VSE completed November 2024 also with functional oropharyngeal swallow. WBC WNL, pt on baseline O2 requirement, and CXR without pneumonia.
Recommend:
1. Regular solids and thin liquids with softer selections per pt preference
2. Meds as best tolerated
3. General aspiration precautions
4. Partial supervision with meals given acute change in mental status
5. ASSISTANT STRENGTH COACH to s/o - please reconsult if concerned for aspiration or if worsening in chest imaging/respiratory status
[2025-06-03] MEDS: LOVENOX 40 MG SC (18:22)
[2025-06-03 19:57] VITALS: BP 118/55
[2025-06-03] MEDS: DUONEB 3 ML INH (20:19)
[2025-06-03] MEDS: PULMICORT 0.5 MG INH (20:19)
[2025-06-03 23:13] VITALS: BP 111/46
[2025-06-03] MEDS: LIPITOR 20 MG PO (23:52)
[2025-06-04] VITALS (8 sets, daily range): BP systolic 108–153; BP diastolic 53–80; PULSE 70–71; O2SAT 100; BMI 26.5
[2025-06-04 06:17] LABS: Urine Character Slightly Cloudy (Clear)
[2025-06-04 06:33] LABS: Urine Red Blood Cell 0-2 /HPF (0-2); Urine Squamous Cell 0-2 /LPF (Few); Urine White Cell >100 /HPF (0-5)
[2025-06-04 06:51] LABS: Hematocrit 28.9 % (39.0-52.0); Hemoglobin 8.5 g/dL (13.0-18.0); Mean Corp Hgb Conc. 29.4 g/dL (33.0-37.0); Mean Corpuscular Volume 77.9 fL (80.0-94.0); Platelet Count 286 10^3/uL (130-400); Red Cell Dist. Width 16.2 % (11.5-14.5)
[2025-06-04 07:19] LABS: Blood Urea Nitrogen 26 mg/dl (9-20); Calcium 8.7 mg/dl (8.4-10.2); Chloride 89 mmol/L (98-107); Estimated Creatinine Clearance 56 ml/min; Glucose 88 mg/dl (70-99); Magnesium 2.2 mg/dl (1.6-2.3); Potassium 3.0 mmol/L (3.5-5.1); Sodium 143 mmol/L (135-145); eGFR > 60.00
[2025-06-04 07:38] LABS: Carbon Dioxide 48 mmol/L (22-30)
[2025-06-04] MEDS: DUONEB 3 ML INH ×2 (07:43→19:10)
[2025-06-04] MEDS: PULMICORT 0.5 MG INH ×2 (07:43→19:10)
--- NOTE | 2025-06-04 08:33 | W.PN.HOSP.TC ---
Today's Communication/Plan
-
GI eval. Pulmonary eval. Protonix.
Assessment / Plan
Assessment / Plan
Physical exam:
General: Acutely ill
HEENT: Normocephalic, Atraumatic and Moist Mucous Membranes
Respiratory: Decreased breath sounds bilaterally; Negative Wheezes, Rales or Rhonchi
Cardiac: Regular Rhythm and S1/S2
GI: Soft, Nontender and Nondistended
Musculoskeletal: No Clubbing, No Cyanosis and No Edema
Neuro: Awake, Alert and Disoriented, no neurological deficits
Psych: Limited judgment and insight
A/P:
IMPRESSION:
74-year-old male with past medical history of COPD (on 2 L via nasal cannula at baseline), CAD status postacute SD with 2 cardiac stents, previous renal failure, anxiety and bipolar disorder presenting to the emergency department via EMS from
[facility] where patient is a long-term resident for evaluation of reported change in mental status
Assessment/plan
Acute metabolic encephalopathy
Possible secondary to CO2 retention.
Urinalysis pending
VBG shows pH 7.54, pCO2 63
Continue home biPAP
Recent admission on February with similar presentation.
06/04:
Will start empirically on IV ceftriaxone and follow-up urine culture
Seen CT scan of the head and unremarkable for acute findings
Updated sister, Camila
Acute on chronic hypercapnic respiratory failure
Chronic hypoxic respiratory failure at baseline oxygen 2 L
severe COPD at baseline
VBG shows pH 7.54, pCO2 63
Patient awake, but not fully oriented
-Currently pt is on 2 L nasal cannula which is baseline
Chest X ray doen shows Pulmonary interstitium at least top normal, cannot exclude acute interstitial process such as pneumonitis or edema.
Continue home and
Patient takes prednisone at home 5 mg Tuesday/Tuesday/Tuesday
No role for antibiotic currently since no leukocytosis or fever
Outpatient follow-up with Dr. Madrid
06/04:
While hypercapnia is improving, patient continues to have some encephalopathy and also might require pulmonary clearance if GI procedure needed so we will request pulmonary consult.
Worsening anemia and heme test stools positive
Start IV Protonix twice daily
Downgrade diet to clear liquid diet for now and advance per GI
GI consult-discussed with GI via [place] text
Hypokalemia
Replete and trend
Pulmonary hypertension:
- Echocardiogram in 11/2024 suggested estimated pulmonary artery pressure of 65 with preserved LVEF of 60 to 65%. Normal RV size and function
Optimize volume with current doses of Lasix bronchodilators supplemental oxygen
Chronic diastolic CHF
Continuing with Lasix 80 mg
Most recent echo in November 2024 showed :
Normal left ventricular size and systolic function. No regional wall motion
abnormalities are seen. LV ejection fraction is 60-65% by visual assessment.
Mild concentric left ventricular hypertrophy.
Normal right ventricular size. Normal right ventricular systolic function.
Mild mitral regurgitation.
Mild tricuspid regurgitation. Estimated pulmonary artery pressure of 65 mmHg.
Assuming a right atrial pressure of 3 mmHg.
CAD with history of PCI
Aspirin 81 mg ,statin 20 mg , Metoprolol 25 mg
Prostate cancer history
cont bicalutamide
Depression
continue Zoloft
History�of�hypertension
Continue home meds
History of hyperlipidemia
Continue�statin
Abnormal labs
�
CODE STATUS:�Full�code
DVT�prophylaxis:�SCDs for now. Hold Lovenox due to anemia
Total time spent on today's encounter was 52 minutes which included time spent in counseling the patient/family regarding diagnosis and treatment plan as listed above, goals of care, and symptom management. Case was discussed with nursing staff,
specialists, and care coordinators/case management. All labs and imaging personally reviewed by me. Remainder the time spent in detailed review of previous records, lab data, imaging, and other medical provider documentation.
Anticipated Discharge: > 48 hours
Subjective/Interval History
-
Date of Service: June 04, 2025
Patient alert but disoriented, he had black incontinent stools. Afebrile
Objective Data
-
Labs:
Laboratory Results
06/04/25
06:11
WBC 5.9
Hgb 8.5 L
Hct 28.9 L
Plt Count 286
Sodium 143
Potassium 3.0 L
Chloride 89 L
Carbon Dioxide 48 H
BUN 26 H
Creatinine 1.2
Glucose 88
Calcium 8.7
Vital Signs:
Vital Signs
Temp Pulse Resp BP Pulse Ox
98.1 F 68 14 122/53 93
06/04/25 03:40 06/04/25 07:49 06/04/25 07:49 06/04/25 03:40 06/04/25 07:49
I&O
06/03/25 06/04/25 06/05/25
06:59 06:59 06:59
Intake Total 100 / 100
Output Total 500 / 500
Balance -400 / -400
[2025-06-04] MEDS: KCL 30 MEQ PO (09:49)
[2025-06-04] MEDS: VITAMIN D3 (cholecalciferol) 50 MCG PO (09:49)
[2025-06-04] MEDS: TOPROL XL 25 MG PO (09:50)
[2025-06-04] MEDS: TYLENOL 650 MG PO (09:50)
[2025-06-04] MEDS: LASIX 80 MG PO ×2 (09:50→16:52)
[2025-06-04] MEDS: DEPAKOTE (12 HR RELEASE) 250 MG PO ×3 (09:51→21:05)
[2025-06-04] MEDS: ZOLOFT 100 MG PO (09:51)
[2025-06-04] MEDS: VITAMIN B-12 1000 MCG PO (09:51)
[2025-06-04] MEDS: LOW STRENGTH ASPIRIN 81 MG PO (09:51)
[2025-06-04] MEDS: CASODEX 50 MG PO (09:52)
[2025-06-04] MEDS: NORVASC 5 MG PO (09:52)
[2025-06-04] MEDS: KCL 40 MEQ PO ×2 (10:46→13:41)
--- NOTE | 2025-06-04 11:57 | CON.PUL ---
Consultation
Consultation Request
Date/Time Consultation Requested: 06/04/25
Date/Time Consultation Performed: 06/04/25
Performing Provider: Nicolette
Reason for Consultation: Preop Eval
Medical History
-
History of Present Illness:
Patient is a 74 year old M with previous history of severe COPD/emphysema, chronic hypoxemia, obesity, suspected RICARDO/OHS (refused testing), noncompliance presenting to ER with change in mental status and increased confusion. [facility] by
[facility] AB on admission 7.5 which is improved compared to prior. He is planning on obtaining EGD and C-scope procedures by GI, we are asked for preoperative evaluation.
Past Medical History
Past Medical History: Other (see list below )
Social History
Tobacco: Non-smoker
Alcohol: None
Drug: None
Family History
Family History: Reviewed & Not Pertinent
Allergies / Home Medications
Allergies
Allergy/AdvReac Type Severity Reaction Status Date / Time
No Known Allergies Allergy Verified 03/16/25 16:19
Home Medications
�Medication �Instructions �Recorded �Confirmed �Last Taken �Type
aspirin 81 mg chewable tablet 81 mg PO DAILY Heart 04/01/22 06/03/25 06/02/25 Rx
disease/condition 30 days #30 tabs
bicalutamide 50 mg tablet 50 mg PO DAILY Cancer 03/31/23 06/03/25 06/02/25 History
acetaminophen 325 mg tablet 650 mg PO Q4HPRN PRN mild 01/31/24 06/03/25 11/10/24 History
pain/fever
bisacodyl 10 mg rectal suppository 10 mg MA DAILYPRN PRN if MOM is 01/31/24 06/03/25 Unknown History
ineffective after 24 hrs
magnesium hydroxide 400 mg/5 mL 30 ml PO DAILYPRN PRN constipation 01/31/24 06/03/25 Unknown History
oral suspension (Milk of Magnesia)
sertraline 50 mg tablet 100 mg PO DAILY Mental 01/31/24 06/03/25 06/02/25 History
Health/Anxiety
atorvastatin 20 mg tablet 20 mg PO HS High Cholesterol 08/08/24 06/03/25 06/01/25 History
ipratropium 0.5 mg-albuterol 3 mg 3 ml inhalation R BID 08/09/24 06/03/25 06/02/25 History
(2.5 mg base)/3 mL nebulization Lung/Breathing Issues
soln
potassium chloride 10 mEq 30 meq PO DAILY Electrolyte 11/15/24 06/03/25 06/02/25 History
tablet,extended release Repletion
budesonide 0.5 mg/2 mL suspension 0.5 mg (2 mL) inhalation R BID 12/18/24 06/03/25 06/02/25 Rx
for nebulization Lung/breathing issues #60 mL
cholecalciferol (vitamin D3) 50 50 mcg PO DAILY def #0 tabs 12/18/24 06/03/25 06/02/25 Rx
mcg (2,000 unit) tablet
cyanocobalamin (vitamin B-12) 1,000 mcg PO DAILY Supplement #0 12/18/24 06/03/25 06/02/25 Rx
1,000 mcg tablet (Vitamin B-12) tabs
furosemide 80 mg tablet 80 mg PO BID@0800,1600 Heart 12/18/24 06/03/25 06/02/25 Rx
Failure #60 tabs
ipratropium 0.5 mg-albuterol 3 mg 3 ml inhalation R Q4HPRN PRN 12/18/24 06/03/25 06/02/25 Rx
(2.5 mg base)/3 mL nebulization shortness of breath #0 mL
soln
metoprolol succinate 25 mg 25 mg PO DAILY Heart 12/18/24 06/03/25 06/02/25 Rx
tablet,extended release 24 hr disease/condition #30 tabs
amlodipine 5 mg tablet (Norvasc) 5 mg PO DAILY Blood Pressure 02/23/25 06/03/25 06/02/25 History
fluticasone propionate 50 2 spray intranasal DAILY Congestion 02/23/25 06/03/25 06/02/25 History
mcg/actuation nasal
spray,suspension
menthol 0.44 %-zinc oxide 20.6 % 1 applic topical TID BUTTOCK 02/23/25 06/03/25 06/02/25 History
topical ointment (Moisture Barrier
Ointment)
prednisone 5 mg tablet 5 mg PO MOWEFR COPD 02/23/25 06/03/25 05/31/25 History
sodium phosphates 19 gram-7 118 ml MA DAILYPRN PRN if no bm 03/16/25 06/03/25 Unknown History
gram/118 mL enema (Fleet Enema) aftr duloclax
divalproex 250 mg tablet,delayed 250 mg PO TID Seizures 06/03/25 06/03/25 06/02/25 History
release (Depakote)
Review of Systems
-
Unable to Obtain full review of systems at this time due to: Acuity
Vitals / Labs / Diagnostic Testing
Vital Signs
Temp Pulse Resp BP Pulse Ox
97.5 F 68 20 118/62 99
06/04/25 11:36 06/04/25 11:36 06/04/25 11:36 06/04/25 11:36 06/04/25 11:36
Lab Data
06/04/25 06:11
06/04/25 06:11
Diagnostic Testing:
Physical Exam
-
HEENT: Normocephalic, Anicteric and Moist Mucous Membranes
Cardiovascular: S1/S2 and Regular Rhythm
Respiratory: Clear and Non-Labored Respirations
GI: Soft, Non Distended and Non Tender
Neurology: Awake, Alert and Other (confused, nonsensical speech)
Skin: Warm and Dry
General: Comfortable and Other (NAD)
Assessment
-
Patient is a 74 year old M with previous history of severe COPD/emphysema, chronic hypoxemia, obesity, suspected RICARDO/OHS (refused testing), noncompliance presenting to ER with change in mental status and increased confusion. He was sent by
[facility] on admission 7.5 which is improved compared to prior. He is planning on obtaining EGD and C-scope procedures by GI, we are asked for preoperative evaluation.
Change in MS
Chronic hypoxic and hypercarbic respiratory failure
Subacute HF exacerbation, mild-proBNP 1340 <- 2490
Medical noncompliance
Advanced COPD/emphysema without acute exacerbation
Obesity hypoventilation syndrome suspected-refused BIPAP
Weight loss, 11/2024 weight 102kg, now 85 kg (~40lbs weight loss in 6 mos)
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
Coronary disease with history of LAD stent and elevated filling pressures per catheterization December 2021
Noncompliance, refusal of treatment
Severe COPD/emphysema, GOLD IV
FEV1 30%
Follows with Dr. Marte in OP last seen 06/2024 - Saw Delmy MARADIAGA.
Regimen: Pulmicort twice a day/DuoNebs 3-4 times a day/albuterol HFA as needed.
Declined low-dose radiation screening-has not followed through. Most recent CT chest in the hospital 08/15/2024: No lung nodules.
Chronic hypoxemia, on 2-4L/Poor compliance with oxygen.
Severe pulm hypertension, PA pressure 70-likely due to chronic hypercapnic respiratory failure/advanced COPD
Echocardiogram 08/09/2024: LVEF 55%. Mild LVH. Dilated right ventricular with low normal RV systolic function. Estimated pulmonary pressure 65-70 mmHg.
Suspect RICARDO/OHS, never had sleep study/declined testing
He declined PAP therapy 06/2024
Prostate cancer
Incomplete right bundle branch block
Overweight BMI 26
Prot mirabilis UTI
History of lower extremity cellulitis
Former smoker: Quit at least 2-1/2 years ago. 40+ pack year history
Plan
Currently 93% on 6L NC (baseline use 4-5L)
Blood gas shows stable chronic hypercapnia--seems compensated now
Continue with BiPAP with sleep (15/5cmH2O)--reports continued noncompliance
ABG previously done--showing chronic CO2 retention
- baseline 02/2025
Repeat 06/03/25: 7.54/63
This is likely improved following weight loss
Imaging reviewed--
CXR 12/12/2024 with bilateral interstitial changes, right pleural effusion/atelectasis
CT chest 08/15/2024 with large pericardial fat pad, emphysema, pleural calcifications and mild interstitial changes, mild right basilar interstitial process
CT chest obtained 12/16 shows extensive pneumonia in the posterior right upper lobe, RML + right lower lobe with small bilateral pleural effusions with calcification along the pleura suggesting there is a component of chronicity here
Chronic aspiration could be a contributing issue as well
Repeat CXR does not appear significantly different on my review
Echocardiogram from 12/13/2024 consistent with severe pulm hypertension, normal biventricular function - no significant changes compared to prior echo on 08/09/2024
Mild elevation of proBNP from prior
Continue home lasix
Weight loss noted, anemia
GI consult obtained for procedures
His pulmonary risk is likely high given history of severe COPD, RICARDO with continued noncompliance
He has refused testing/treatments in the past
He remains confused and lacking insight into his condition or that a procedure is being discussed
DVT prophylaxis: LMWH
GI prophylaxis: Not indicated
Poor prognosis overall
Patient is full code.
As below-he has declined to address CODE STATUS in the past
Reviewed prior notes extensively
We will follow
Prior Discussions
He understands high risk of readmission and without noninvasive mechanical ventilation.
Multiple extensive discussion with him in the outpatient setting and during this admission.
Patient has repeatedly stated he has no intention to continue BPAP as outpatient: we have discussed hospice but he does not believe he is ill
He does not feel he has any issue with his lungs, he is in 'perfect health.'
He does not wish to change his code status and does not have family/medical POA designation (he says he has no children or siblings, despite sister is contact). He feels he does not need anyone.
He is not ready for hospice despite his level of noncompliance.
Overall poor prognosis given recurrent evidence of medical noncompliance, comorbidities, pre-existing cognitive impairment and likely paranoid psychosis. Noted full code status.
Will benefit from GOC discussion with family, given his multiple comorbidities and persistent medical noncompliance. He may be at increased risk for prolonged mechanical ventilation and associated complications. In my humble opinion he should be
DNR/DNI.
This was discussed with him and care team on prior visits, unfortunately he has very poor insight
Not much else to offer.
Follow up with Dr. Marte after discharge known to have poor compliance with therapy, unable to afford medications, poor compliant with oxygen, refusing BiPAP
Last time seen in June 2024 with LOOM OVER[employer]ULER.
Diagnostic Data
CT chest 08/15/2024-no evidence for pulm embolism, moderate to advanced emphysematous lung changes and in the posterior right lower lobe bronchial wall thickening suggesting secretions or mucous plugging.
CXR 08/08/24- Cardiomegaly. Radiographic findings felt to most likely represent pulmonary edema.
CXR 03-31-23 (portable) c/w 01-16-22 (PA/lat): Old films with no infiltrates. Current film slightly lordotic/rotated. R basilar linear atelectasis, mild pulm vasc congestion
PET CT 01-17-23 IMPRESSION: [Marked uptake of activity in the prostate gland suspicious for malignancy.] Extension of malignancy to involve the seminal vesicles cannot be excluded on the basis of this study. Coronary artery calcifications and
sigmoid diverticulosis. Please note, evaluation may be limited with possible false negative results in light of the large volume of activity seen in the prostate gland.
VBG 12/12/2024: 7.51/71/110-likely stable as prior ABG 11/15/2024 was 7.45/71/90
Bilateral Doppler 12/12/2024: Negative for DVT
R leg doppler 03-31-23: negative
TTE 04-01-23 CONCLUSIONS: Normal left ventricular chamber size. Normal left ventricular systolic function. Left ventricular ejection fraction is 55% by visual estimate. Normal regional wall motion. Mild concentric left ventricular hypertrophy. Stage
II diastolic dysfunction suggestive of abnormal relaxation and increased filling pressures. Moderately dilated right ventricle with moderately reduced systolic function. Dilated right atrium. Mild to moderate tricuspid regurgitation. Estimated
pulmonary artery pressure of 70 mmHg assuming a right atrial pressure of 15 mmHg. Compared to prior study dated 01/18/22 which was directly reviewed, LV function was previously hyperdynamic, otherwise no significant change.
Spirometry 09/08/2021: FEV1 /FVC 40%, FEV1 0.97 L-30%, FVC 2.41 L -55%. Stable mixed ventilatory defect. Severe airflow obstruction and restriction. Stable compared to July 2017
-----
Total time spent today was 75 minutes for this encounter. Time includes reviewing laboratory test/imaging results, reviewing pertinent medical records, obtaining and reviewing medical history, performing an appropriate exam, ordering medications,
tests and procedures. Time also includes documentation of this encounter, coordinating patient care and communicating with other healthcare professionals. Total time does not include separately billed tests performed on this date of service.
[2025-06-04] MEDS: PROTONIX IV 40 MG IV ×2 (13:40→21:05)
[2025-06-04] MEDS: NSS (PRESERVATIVE FREE) 10 ML IV ×2 (13:40→21:05)
[2025-06-04] MEDS: ROCEPHIN 1000 MG IV (13:42)
[2025-06-04] MEDS: STERILE WATER FOR INJECTION 10 ML IV (13:43)
--- NOTE | 2025-06-04 13:59 | CON.GI ---
Addendum entered and electronically signed by Gen Gray MD 06/04/25 16:49:
I saw and examined the patient.
The AUDIO RECORDING ENGINEER or PA's note was reviewed and I agree with the note.
Comment:
This patient is a 74-year-old with history of coronary disease with CHF, severe COPD and pulmonary hypertension. He also has bipolar and was admitted with a change in mental status. He did have some dark stool which was heme positive and a mild
drop in hemoglobin.
abd: soft, nontender
impression
heme positive
anemia
?melena
plan:
monitor hgb
Pt at high risk for sedation (as per pulm)
UGI to evaluate for ulcer/lesions
PPI
Original Note:
Consultation
-
Date/Time Consultation Requested: 06/04/25 1050
Date/Time Consultation Performed: 06/04/25 1400
Requesting Provider: Justus Hollis MD
Performing Provider: ASHWINI Cat, Gen Gray MD
Reason for Consultation: dark stool and anemia
Medical History
Chief Complaint / HPI
Chief Complaint: black stools
History of Present Illness:
Pt is a 74yo with hx CAD with prior cardiac stent, prior VA, prior renal failure, prostate CA, CHF, severe COPD and pulm HTN,, HTN, hyperlipidemia, bipolar disorder, RICARDO suspected, med non complainace presents to ER with change in mental status
with concern for elevated Co2 level. Pt also with concern for UTI. Asked to see as noted with black stool per nursing staff and hbg 8-9 range with prior hbg 9 in February and 10-12 over last winter and spring. In review with patient he admits some
some loose stool but denies any GI issues with dysphagia, GERD, nausea, vomiting, abdominal pain, constipation or seeing red or black in stools. Per staff patient conversant but forget for many questions and poor historian. On chronic steroids but
no NSAID per home med list.
Past Medical History
Past Medical History: Arrhythmias (right BBB), CAD, Cancer (prostate CA), CHF, COPD, HTN, Hypercholesterolemia, VA, Renal Failure (prior renal failure), Psychiatric (bipolar disorder, anxiety ) and Other (RICARDO-suspected , non compliance, prior
cellulitis )
Past Surgical History: Cardiac (stent ) and Tonsilectomy
Social History
Tobacco: Non-Smoker
Alcohol: None
Drug: None
Living: [facility]
Employment: Retired
Family History
Family History: Other (pt denies family hx GI issues ==per chart father with pancreatic CA, mother with dementia )
Allergies / Home Medications
Allergy/AdvReac Type Severity Reaction Status Date / Time
No Known Allergies Allergy Verified 03/16/25 16:19
�Medication �Instructions �Recorded
aspirin 81 mg chewable tablet 81 mg PO DAILY Heart 04/01/22
disease/condition 30 days #30 tabs
bicalutamide 50 mg tablet 50 mg PO DAILY Cancer 03/31/23
acetaminophen 325 mg tablet 650 mg PO Q4HPRN PRN mild 01/31/24
pain/fever
bisacodyl 10 mg rectal suppository 10 mg CO DAILYPRN PRN if MOM is 01/31/24
ineffective after 24 hrs
magnesium hydroxide 400 mg/5 mL 30 ml PO DAILYPRN PRN constipation 01/31/24
oral suspension (Milk of Magnesia)
sertraline 50 mg tablet 100 mg PO DAILY Mental 01/31/24
Health/Anxiety
atorvastatin 20 mg tablet 20 mg PO HS High Cholesterol 08/08/24
ipratropium 0.5 mg-albuterol 3 mg 3 ml inhalation R BID 08/09/24
(2.5 mg base)/3 mL nebulization Lung/Breathing Issues
soln
potassium chloride 10 mEq 30 meq PO DAILY Electrolyte 11/15/24
tablet,extended release Repletion
budesonide 0.5 mg/2 mL suspension 0.5 mg (2 mL) inhalation R BID 12/18/24
for nebulization Lung/breathing issues #60 mL
cholecalciferol (vitamin D3) 50 50 mcg PO DAILY def #0 tabs 12/18/24
mcg (2,000 unit) tablet
cyanocobalamin (vitamin B-12) 1,000 mcg PO DAILY Supplement #0 12/18/24
1,000 mcg tablet (Vitamin B-12) tabs
furosemide 80 mg tablet 80 mg PO BID@0800,1600 Heart 12/18/24
Failure #60 tabs
ipratropium 0.5 mg-albuterol 3 mg 3 ml inhalation R Q4HPRN PRN 12/18/24
(2.5 mg base)/3 mL nebulization shortness of breath #0 mL
soln
metoprolol succinate 25 mg 25 mg PO DAILY Heart 12/18/24
tablet,extended release 24 hr disease/condition #30 tabs
amlodipine 5 mg tablet (Norvasc) 5 mg PO DAILY Blood Pressure 02/23/25
fluticasone propionate 50 2 spray intranasal DAILY Congestion 02/23/25
mcg/actuation nasal
spray,suspension
menthol 0.44 %-zinc oxide 20.6 % 1 applic topical TID BUTTOCK 02/23/25
topical ointment (Moisture Barrier
Ointment)
prednisone 5 mg tablet 5 mg PO MOWEFR COPD 02/23/25
sodium phosphates 19 gram-7 118 ml CO DAILYPRN PRN if no bm 03/16/25
gram/118 mL enema (Fleet Enema) aftr duloclax
divalproex 250 mg tablet,delayed 250 mg PO TID Seizures 06/03/25
release (Depakote)
Review of Systems
-
Unable to obtain full review of systems at this time due to: Other (forgetful)
History Source: Patient
Constitutional: Reports No Symptoms
EENT: Reports No Symptoms
Respiratory: Reports No Symptoms
Cardiac: Reports No Symptoms
Abdomen/GI: Reports Diarrhea and Black Stools
: Reports No Symptoms
Musculoskeletal: Reports No Symptoms
Skin: Reports No Symptoms
Neurological: Reports Weakness
Endocrine: Reports No Symptoms
Hematologic/Lymphatic: Reports Bleeding
Vital Signs
Temp Pulse Resp BP Pulse Ox
97.5 F 68 20 118/62 99
06/04/25 11:36 06/04/25 11:36 06/04/25 11:36 06/04/25 11:36 06/04/25 11:36
Physical Exam
Exam
General: Well Developed, Well Nourished and No Apparent Distress
HEENT: Normocephalic and Anicteric
Respiratory: Other (chronic shortness of breath with O2 use with hx COPD)
Cardiac: Regular Rhythm
GI: Soft, Non Tender and Non Distended
Rectal: Other (pt declined, black stool per nursing staff noted today )
Musculoskeletal: No Clubbing and No Cyanosis
Skin: Warm and Dry
Neuro: Awake, Alert and Other (forgetful to date )
Psych: Calm
Results
WBC 5.9 10^3/uL (4.8-10.8) 06/04/25 06:11
Hgb 8.5 g/dL (13.0-18.0) L 06/04/25 06:11
Hct 28.9 % (39.0-52.0) L 06/04/25 06:11
MCV 77.9 fL (80.0-94.0) L 06/04/25 06:11
Plt Count 286 10^3/uL (130-400) 06/04/25 06:11
Absolute Neuts (auto) 6.0 10^3/uL (1.4-6.5) 06/03/25 08:28
PT 15.1 Sec (11.4-14.6) H 06/03/25 08:28
INR 1.16 06/03/25 08:28
APTT 32.7 Sec (23.4-35.0) 06/03/25 08:28
Sodium 143 mmol/L (135-145) 06/04/25 06:11
Potassium 3.0 mmol/L (3.5-5.1) L 06/04/25 06:11
Chloride 89 mmol/L (98-107) L 06/04/25 06:11
Carbon Dioxide 48 mmol/L (22-30) H 06/04/25 06:11
BUN 26 mg/dl (9-20) H 06/04/25 06:11
Creatinine 1.2 mg/dL (0.7-1.3) 06/04/25 06:11
Calcium 8.7 mg/dl (8.4-10.2) 06/04/25 06:11
Total Bilirubin 0.6 mg/dl (0.2-1.3) 06/03/25 09:08
AST 24 U/L (17-59) 06/03/25 09:08
ALT 16 U/L (0-50) 06/03/25 09:08
Alkaline Phosphatase 85 U/L (38-126) 06/03/25 09:08
Diagnostic Image Results:
06/03/25 CT Head W/o Iv Contrast
No acute intracranial abnormalities.
Findings again seen compatible with diffuse cortical atrophy with nonspecific white matter changes as described above.
Widespread chronic paranasal sinus inflammatory changes.
Prior GI Procedures:
EGD: none
Colonoscopy: 2011 Dr. Granger One 2 mm polyp in the cecum. Resected and retrieved.
- Diverticulosis in the sigmoid colon bx tubular denoma, neg colitis neg adenomatous or dysplastic changes
due repeat 5 years
Assessment / Plan
-
Pt is a 74yo with hx CAD with prior cardiac stent, prior VA, prior renal failure, prostate CA, CHF, severe COPD and pulm HTN, HTN, hyperlipidemia, bipolar disorder, RICARDO-suspected, medical non compliance presents to ER with change in mental status
with concern for elevated Co2 level. Pt also with concern for UTI. Asked to see as noted with black stool per nursing staff and hbg 8-9 range with prior hbg 9 in February and 10-12 over last winter and spring. In review with patient he admits some
some loose stool but denies any GI issues with dysphagia, GERD, nausea, vomiting, abdominal pain, constipation or seeing red or black in stools. Per staff patient conversant but forget for many questions and poor historian. On chronic steroids but
no NSAID per home med list.
-melena
-anemia with progressive drop
-severe COPD/severe pulm HTN/acute on chronic resp failure
-change in mental status on admission
-wt loss
-possible UTI on admission
other med problems:
CAD with prior cardiac stent, prior VA, prior renal failure, prostate CA, CHF, COPD, HTN, hyperlipidemia, bipolar disorder, RICARDO-suspected, medical non compliance
PLAN:
etiology for black stools and anemia related to UGI bleeding - gastritis, PUD, ectasia, mass vs other
pt unsure if would want any GI testing
I reviewed via tiger text with Dr. Will -- pt is high risk for GI procedures with untreated COPD, apnea and refuses most treatment from pulm standpoint
if pt wishes for GI testing would consider UGI series first
add iron studies to see if benefit from venofer
cont PPI as was not on prior to admission with steroid and ASA use
trend hbg, transfuse as needed
I left message for sister to review
-
-
Thank you for consultation and allowing me to participate in the patient's care. Please call the insurance salesperson GI physician during the after hours with any questions or concerns.
[2025-06-04 15:44] LABS: Iron < 20 ug/dl (49-181)
[2025-06-04 15:52] LABS: Total Iron Binding Capacity 404 ug/dl (261-462)
[2025-06-04 16:19] LABS: Ferritin 28.1 ng/ml (17.9-464.0)
[2025-06-04] MEDS: LIPITOR 20 MG PO (21:05)
[2025-06-05 03:00] VITALS: BMI 26.5
[2025-06-05 03:12] VITALS: BP 105/46
[2025-06-05 05:22] VITALS: BMI 26.6
[2025-06-05 07:00] VITALS: BP 118/54
[2025-06-05] MEDS: DUONEB 3 ML INH ×2 (07:21→19:26)
[2025-06-05] MEDS: PULMICORT 0.5 MG INH ×2 (07:21→19:26)
[2025-06-05 08:00] VITALS: BMI 26.6
[2025-06-05 08:39] LABS: Hematocrit 29.9 % (39.0-52.0); Hemoglobin 8.8 g/dL (13.0-18.0); Mean Corp Hgb Conc. 29.4 g/dL (33.0-37.0); Mean Corpuscular Volume 74.9 fL (80.0-94.0); Nucleated Red Blood Cells % 0 % (-); Platelet Count 288 10^3/uL (130-400); Red Cell Dist. Width 16.3 % (11.5-14.5)
[2025-06-05 09:21] LABS: ALT (SGPT) 13 U/L (0-50); AST (SGOT) 21 U/L (17-59); Albumin 3.6 g/dl (3.5-5.0); Alkaline Phosphatase 73 U/L (38-126); Blood Urea Nitrogen 24 mg/dl (9-20); Calcium 8.5 mg/dl (8.4-10.2); Chloride 89 mmol/L (98-107); Estimated Creatinine Clearance 62 ml/min; Glucose 77 mg/dl (70-99); Potassium 3.6 mmol/L (3.5-5.1); Sodium 140 mmol/L (135-145); Total Protein 6.5 g/dl (6.3-8.2); eGFR > 60.00
--- NOTE | 2025-06-05 09:31 | W.PN.PUL3 ---
Today's Communication / Plan
-
Confusion ongoing with delusional thinking, but this may be baseline
Met alkalosis is worsening likely from weight loss and diuresis, change lasix to diamox for now
This could impact MS, pH >7.5
Follow labs
Assessment
-
Patient is a 74 year old M with previous history of severe COPD/emphysema, chronic hypoxemia, obesity, suspected RICARDO/OHS (refused testing), noncompliance presenting to ER with change in mental status and increased confusion. He was sent by
[facility]. ABG on admission 7.5 which is improved compared to prior. He is planning on obtaining EGD and C-scope procedures by GI, we are asked for preoperative evaluation.
Change in MS
Chronic hypoxic and hypercarbic respiratory failure
Subacute HF exacerbation, mild-proBNP 1340 <- 2490
Medical noncompliance
Advanced COPD/emphysema without acute exacerbation
Obesity hypoventilation syndrome suspected-refused BIPAP
Weight loss, 11/2024 weight 102kg, now 85 kg (~40lbs weight loss in 6 mos)
Metabolic alkalosis
Conditions present WEAPONS SPECIALIST:
Coronary disease with history of LAD stent and elevated filling pressures per catheterization December 2021
Noncompliance, refusal of treatment
Severe COPD/emphysema, GOLD IV
FEV1 30%
Follows with Dr. Marte in OP last seen 06/2024 - Saw Delmy MARADIAGA.
Regimen: Pulmicort twice a day/DuoNebs 3-4 times a day/albuterol HFA as needed.
Declined low-dose radiation screening-has not followed through. Most recent CT chest in the hospital 08/15/2024: No lung nodules.
Chronic hypoxemia, on 2-4L/Poor compliance with oxygen.
Severe pulm hypertension, PA pressure 70-likely due to chronic hypercapnic respiratory failure/advanced COPD
Echocardiogram 08/09/2024: LVEF 55%. Mild LVH. Dilated right ventricular with low normal RV systolic function. Estimated pulmonary pressure 65-70 mmHg.
Suspect RICARDO/OHS, never had sleep study/declined testing
He declined PAP therapy 06/2024
Prostate cancer
Incomplete right bundle branch block
Overweight BMI 26
Prot mirabilis UTI
History of lower extremity cellulitis
Former smoker: Quit at least 2-1/2 years ago. 40+ pack year history
Plan
Currently 93% on 6L NC (baseline use 4-5L)--wean O2 as tolerated
Blood gas shows stable chronic hypercapnia--seems compensated now
Continue with BiPAP with sleep (15/5cmH2O)--reports continued noncompliance
ABG previously done--showing chronic CO2 retention
7.44- baseline 02/2025
Repeat 06/03/25: 7.54/63
This is likely improved following weight loss
Imaging reviewed--
CXR 12/12/2024 with bilateral interstitial changes, right pleural effusion/atelectasis
CT chest 08/15/2024 with large pericardial fat pad, emphysema, pleural calcifications and mild interstitial changes, mild right basilar interstitial process
CT chest obtained 12/16 shows extensive pneumonia in the posterior right upper lobe, RML + right lower lobe with small bilateral pleural effusions with calcification along the pleura suggesting there is a component of chronicity here
Chronic aspiration could be a contributing issue as well
Repeat CXR does not appear significantly different on my review
Echocardiogram from 12/13/2024 consistent with severe pulm hypertension, normal biventricular function - no significant changes compared to prior echo on 08/09/2024
Mild elevation of proBNP from prior
Continued on home lasix but this is likely causing worsening metabolic alkalosis
Change regiment to diamox for now
Weight loss noted, anemia
GI consult obtained for procedures
His pulmonary risk is likely high given history of severe COPD, RICARDO with continued noncompliance
He has refused testing/treatments in the past
He remains confused and lacking insight into his condition or that a procedure is being discussed
DVT prophylaxis: LMWH
GI prophylaxis: Not indicated
Poor prognosis overall
Patient is full code.
As below-he has declined to address CODE STATUS in the past
Reviewed prior notes extensively
Prior Discussions
He understands high risk of readmission and without noninvasive mechanical ventilation.
Multiple extensive discussion with him in the outpatient setting and during this admission.
Patient has repeatedly stated he has no intention to continue BPAP as outpatient: we have discussed hospice but he does not believe he is ill
He does not feel he has any issue with his lungs, he is in 'perfect health.'
He does not wish to change his code status and does not have family/medical POA designation (he says he has no children or siblings, despite sister is contact). He feels he does not need anyone.
He is not ready for hospice despite his level of noncompliance.
Overall poor prognosis given recurrent evidence of medical noncompliance, comorbidities, pre-existing cognitive impairment and likely paranoid psychosis. Noted full code status.
Will benefit from GOC discussion with family, given his multiple comorbidities and persistent medical noncompliance. He may be at increased risk for prolonged mechanical ventilation and associated complications. In my humble opinion he should be
DNR/DNI.
This was discussed with him and care team on prior visits, unfortunately he has very poor insight
Not much else to offer.
Follow up with Dr. Marte after discharge known to have poor compliance with therapy, unable to afford medications, poor compliant with oxygen, refusing BiPAP
Last time seen in June 2024 with SENIOR GAME ADVISOR.
Diagnostic Data
CT chest 08/15/2024-no evidence for pulm embolism, moderate to advanced emphysematous lung changes and in the posterior right lower lobe bronchial wall thickening suggesting secretions or mucous plugging.
CXR 08/08/24- Cardiomegaly. Radiographic findings felt to most likely represent pulmonary edema.
CXR 03-31-23 (portable) c/w 01-16-22 (PA/lat): Old films with no infiltrates. Current film slightly lordotic/rotated. R basilar linear atelectasis, mild pulm vasc congestion
PET CT 01-17-23 IMPRESSION: [Marked uptake of activity in the prostate gland suspicious for malignancy.] Extension of malignancy to involve the seminal vesicles cannot be excluded on the basis of this study. Coronary artery calcifications and
sigmoid diverticulosis. Please note, evaluation may be limited with possible false negative results in light of the large volume of activity seen in the prostate gland.
VBG 12/12/2024: 7.51/71/110-likely stable as prior ABG 11/15/2024 was 7.45/71/90
Bilateral Doppler 12/12/2024: Negative for DVT
R leg doppler 03-31-23: negative
TTE 04-01-23 CONCLUSIONS: Normal left ventricular chamber size. Normal left ventricular systolic function. Left ventricular ejection fraction is 55% by visual estimate. Normal regional wall motion. Mild concentric left ventricular hypertrophy. Stage
II diastolic dysfunction suggestive of abnormal relaxation and increased filling pressures. Moderately dilated right ventricle with moderately reduced systolic function. Dilated right atrium. Mild to moderate tricuspid regurgitation. Estimated
pulmonary artery pressure of 70 mmHg assuming a right atrial pressure of 15 mmHg. Compared to prior study dated 01/18/22 which was directly reviewed, LV function was previously hyperdynamic, otherwise no significant change.
Spirometry 09/08/2021: FEV1 /FVC 40%, FEV1 0.97 L-30%, FVC 2.41 L -55%. Stable mixed ventilatory defect. Severe airflow obstruction and restriction. Stable compared to July 2017
-----
Total time spent today was 51 minutes for this encounter. Time includes reviewing laboratory test/imaging results, reviewing pertinent medical records, obtaining and reviewing medical history, performing an appropriate exam, ordering medications,
tests and procedures. Time also includes documentation of this encounter, coordinating patient care and communicating with other healthcare professionals. Total time does not include separately billed tests performed on this date of service.
Subjective Data
-
Date of Service:
Date of Service: June 05, 2025
Chief Complaint: Pulmonary Follow Up
Subjective:
Remains confused, delusional/paranoid thinking
Remains on Low O2
Objective Data
Data Reviewed
Vital Signs / I&O / Oxygen:
Vital Signs
Temp Pulse Resp BP Pulse Ox
97.8 F 52 14 118/54 93
06/05/25 07:00 06/05/25 07:24 06/05/25 07:24 06/05/25 07:00 06/05/25 07:24
Intake and Output
06/04/25 06/05/25 06/06/25
06:59 06:59 06:59
Intake Total 100 / 100 480 / 480
Output Total 500 / 500
Balance -400 / -400 480 / 480
SaO2 93
Nasal Cannula flow liters per 3
minute
Physical Exam
General: Comfortable and Other (NAD)
HEENT: Normocephalic, Anicteric and Moist Mucous Membranes
Cardiovascular: S1-S2 and Regular Rhythm
Respiratory: Clear and Non-Labored Respirations
GI: Soft, Non Distended and Non Tender
Neurology: Awake, Alert and Other (confused, delusional thinking)
Skin: Warm and Dry
Labs/Micro/Reports
Lab Data
06/05/25 05:56
06/05/25 05:56
Microbiology
06/03/25 16:18 Nose MRSA Screen - Final
No Methicillin Resistant Staphylococcus aureus isolated.
[2025-06-05 09:42] LABS: Carbon Dioxide 45 mmol/L (22-30)
--- NOTE | 2025-06-05 10:15 | CON.NEURO4 ---
Addendum entered and electronically signed by Milton Fregoso MD 06/05/25 14:53:
Studies reviewed.
I have personally examined the patient. I reviewed and agree with the [employer] OPERATOR's Note.
My addenda:
Awake, alert, interactive. No acute distress. Wearing oxygen
Speech thick at times with dysarthria.
Follows 2-step requests w/ difficulty. No tremor. Incorrect month and year provided.
Extra-ocular movements grossly intact.
Facial movements full and symmetric. Hearing intact to normal conversational volume.
Normal UE movements bilaterally.
Neck: full ROM.
Chest: no dyspnea
Heart: no JVD
Ext: (-) Clubbing, (-) Cyanosis, (-) Edema
IMPRESSIONS/RECOMMENDATIONS:
Abrupt onset of change in mental status. This most likely represents underlying dementia which is either Alzheimer's type or frontotemporal dementia.
Check blood work for potential metabolic causes attempt to remediate current infectious and metabolic challenges
Speech therapy evaluation and treatment
Consider MRI of brain if no significant improvement in the next 48 hours
Provide thiamine
Follow valproic acid levels
Outpatient neuropsychological testing to establish baseline
D/W patient
Will continue to follow patient.
Original Note:
Consultation - Neurology 4
-
CONSULTING PHYSICIAN: Milton Fregoso MD
REFERRING PHYSICIAN: Hospitalists/Dr. Hollis
DICTATED BY: ASHWINI Fischer
DATE/TIME OF REQUEST: 06/05/25
DATE/TIME OF CONSULTATION: 06/05/25
Reason for Consultation: Encephalopathy
History of Present Illness:
This is a 74-year-old right-handed male who has presented to the hospital on 06/03/25 with report of a change in mental status. Nursing staff at [facility] noted that the patient is typically oriented x3 and conversant but had become confused,
agitated, and his speech was garbled, prompting them to send him to the ER for evaluation. He had been refusing to wear his bipap at night and CO2 is elevated. CT head was obtained on arrival and is negative for any acute abnormalities. Urinalysis
was mildly abnormal. The patient continues to be confused, prompting Neurology evaluation. The patient is currently confused and tangential in conversation, offers no complaints.
Past Medical History: HTN, HLD, NSTEMI, CAD, CHF, Vtach, COPD, 2L NC oxygen dependence, cognitive decline, bipolar disorder, anxiety, metabolic encephalopathy
Surgical History: Cardiac cath/stent, tonsillectomy
Family History: Reviewed and noncontributory.
Social History: Former smoker. Denies alcohol and illicit drug use.
Allergies: No known allergies.
Home Medications: See below.
Review of Symptoms:
Patient denies any fever, headache, chest pain, shortness of breath, GI or symptoms.
�Per the HPI.�All systems are reviewed negative except above.
Physical Exam:
The patient is afebrile, abdomen is nondistended, breathing is unlabored, skin is cool and dry, no edema. L forehead indentation. PVD changes R>L lower extremities.
Neurologic Examination:
The patient is awake and alert, states it is August 2004. Confused tangential conversation. He is able to follow some commands and answer some questions appropriately. Moderate difficulty with two-step commands. There is no aphasia. There is mild
dysarthria. On cranial nerve assessment, pupils are 3 mm bilateral, round and reactive to light and accommodation. Visual howe are full. Extraocular movements are intact. Facial sensations are intact and bilaterally symmetrical, there is no facial
asymmetry. Hearing is diminished bilaterally to normal conversation volume. Tongue palate and uvula are midline. Sternocleidomastoid strengths are full bilaterally. Motor strengths are 5/5 bilateral upper and lower extremities on medical research
[place] scale. There is no drift. There is a low amplitude semi rhythmic tremor in distal bilateral upper extremities/mild asterixis. Deep tendon reflexes are 2+ bilateral upper and lower extremities and Babinski is absent bilaterally. There was no
extinction noted on double simultaneous stimulation. Coordination is intact by finger to nose bilaterally.
Lab Results: See below.
Neuro Imaging:
1. CT Head 06/03/25: No acute intracranial abnormalities. Findings again seen compatible with diffuse cortical atrophy with nonspecific white matter changes as described above.
Differentials for the patient's presentation include:
1. Change in mental status likely due to metabolic encephalopathy, possibly underlying cognitive impairment.
Patient has the following risk factors for their symptoms: Hx metabolic encephalopathy, noncompliant with bipap
Recommendations:
-Supportive care.
-Outpatient neuropsychological testing.
-Checking blood work for metabolic abnormalities.
-If patient fails to improve after metabolic abnormalities normalize, consider MRI brain imaging at that point.
-PT/OT/ST evaluations.
-DVT prophylaxis.
Discussed patient care with: Dr. Fregoso, the patient
Vital Signs and Labs
-
Vital Signs and Labs:
Vital Signs
Temp Pulse Resp BP Pulse Ox
97.8 F 52 14 118/54 93
06/05/25 07:00 06/05/25 07:24 06/05/25 07:24 06/05/25 07:00 06/05/25 07:24
Lab Results
06/05/25 05:56
06/05/25 05:56
PT 15.1 Sec (11.4-14.6) H 06/03/25 08:28
INR 1.16 06/03/25 08:28
APTT 32.7 Sec (23.4-35.0) 06/03/25 08:28
Sodium 140 mmol/L (135-145) 06/05/25 05:56
Potassium 3.6 mmol/L (3.5-5.1) 06/05/25 05:56
BUN 24 mg/dl (9-20) H 06/05/25 05:56
Glucose 77 mg/dl (70-99) 06/05/25 05:56
Calcium 8.5 mg/dl (8.4-10.2) 06/05/25 05:56
Cdf-X-Wtlzuuherig Pept 1340 pg/ml 06/03/25 09:08
Medications
-
Active Medications
Generic Name Dose Route Start Last Admin
Trade Name Freq PRN Reason Stop Dose Admin
Acetaminophen 650 mg 06/03/25 15:12 06/04/25 09:50
Acetaminophen 325 Mg Tablet PO 07/01/25 15:11 650 mg
Q4HPRN PRN Administration
mild pain/fever
Albuterol/Ipratropium 3 ml 06/03/25 20:00 06/05/25 07:21
Ipratropium 0.5/Albuterol 3 Mg (3 Ml Ampul) INH 3 ml
R BID BRI Administration
Protocol
Albuterol/Ipratropium 3 ml 06/03/25 15:12
Ipratropium 0.5/Albuterol 3 Mg (3 Ml Ampul) INH
R Q4HPRN PRN
shortness of breath
Protocol
Amlodipine Besylate 5 mg 06/04/25 08:00 06/04/25 09:52
Amlodipine 5 Mg Tablet PO 07/02/25 07:59 5 mg
DAILY BRI Administration
Aspirin 81 mg 06/04/25 08:00 06/04/25 09:51
Aspirin 81 Mg Chewable Tablet PO 07/02/25 07:59 81 mg
DAILY BRI Administration
Atorvastatin Calcium 20 mg 06/03/25 22:00 06/04/25 21:05
Atorvastatin (Lipitor) 20 Mg Tablet PO 07/01/25 21:59 20 mg
HS BRI Administration
Bicalutamide 50 mg 06/04/25 08:00 06/04/25 09:52
Bicalutamide 50 Mg Tablet PO 07/02/25 07:59 50 mg
DAILY BRI Administration
Bisacodyl 10 mg 06/03/25 15:12
Bisacodyl 10 Mg Rectal Suppository RECTAL 07/01/25 15:11
DAILYPRN PRN
if MOM is ineffective after 24 hrs
Budesonide 0.5 mg 10/06/25 20:00 06/05/25 07:21
Budesonide (Pulmicort Respules) 0.5 Mg/2 Ml INH 0.5 mg
R BID BRI Administration
Protocol
Ceftriaxone Sodium 1,000 mg 06/04/25 14:00 06/04/25 13:42
Ceftriaxone 1000 Mg / 10 Ml Vial IV 1,000 mg
Q24H BRI Administration
Cholecalciferol 50 mcg 06/04/25 08:00 06/04/25 09:49
Cholecalciferol (Vitamin D3) 50 Mcg Tablet (2,000 Units) PO 07/02/25 07:59 50 mcg
DAILY BRI Administration
Cyanocobalamin 1,000 mcg 06/04/25 08:00 06/04/25 09:51
Cyanocobalamin (Vitamin B-12) 500 Mcg Tablet PO 07/02/25 07:59 1,000 mcg
DAILY BRI Administration
Divalproex Sodium 250 mg 06/03/25 16:00 06/04/25 21:05
Divalproex 250 Mg Delayed Release (12 Hr) Tablet PO 07/01/25 15:59 250 mg
TID BRI Administration
Enoxaparin Sodium 40 mg 06/03/25 18:00 06/03/25 18:22
Enoxaparin Sodium 40 Mg/0.4 Ml Syringe SC 07/01/25 17:59 40 mg
On Hold: 06/04/25 10:54 QPM BRI Administration
Furosemide 80 mg 06/04/25 08:00 06/04/25 16:52
Furosemide 80 Mg Tablet PO 07/02/25 07:59 80 mg
BID@0800,1600 BRI Administration
Magnesium Hydroxide 30 ml 06/03/25 15:12
Milk Of Magnesia 30 Ml Cup PO 07/01/25 15:11
DAILYPRN PRN
constipation
Metoprolol Succinate 25 mg 06/04/25 08:00 06/04/25 09:50
Metoprolol 25 Mg Extended Release Tablet PO 07/02/25 07:59 25 mg
DAILY BRI Administration
Ondansetron HCl 4 mg 06/03/25 15:12
Ondansetron 4 Mg/2 Ml Vial IV 07/01/25 15:11
Q6HPRN PRN
nausea and vomiting
Pantoprazole Sodium 40 mg 06/04/25 11:00 06/04/25 21:05
Pantoprazole Sodium 40 Mg/10 Ml Vial IV 07/02/25 10:59 40 mg
BID BRI Administration
Potassium Chloride 30 meq 06/04/25 08:00 06/04/25 09:49
Potassium Chloride 10 Meq Extended Release Tablet PO 07/02/25 07:59 30 meq
DAILY BRI Administration
Prednisone 5 mg 06/03/25 15:12 06/03/25 16:05
Prednisone 5 Mg Tablet PO 07/01/25 15:11 5 mg
MoWeFr@0800 BRI Administration
Sertraline HCl 100 mg 06/04/25 08:00 06/04/25 09:51
Sertraline 100 Mg Tablet PO 07/02/25 07:59 100 mg
DAILY BRI Administration
Sodium Chloride 0 flush 06/03/25 16:00
Sodium Chloride 0.9% (Flush) Syringe IV 07/01/25 15:59
PER PROTOCOL BRI
Sodium Chloride 10 ml 06/04/25 11:00 06/04/25 21:05
Sodium Chloride 0.9% (Preservative Free) 10 Ml Vial IV 07/02/25 10:59 10 ml
BID BRI Administration
Sterile Water 10 ml 06/04/25 14:00 06/04/25 13:43
Sterile Water For Injection 10 Ml Vial IV 07/02/25 13:59 10 ml
Q24H BRI Administration
Zinc Oxide 0 applic 06/03/25 17:00 06/04/25 21:06
Zinc Oxide 20% (Ointment) 30 Gram Tube TOPICAL 07/01/25 16:59 1 applic
TID BRI Administration
Home Medications
�Medication �Instructions �Recorded
aspirin 81 mg chewable tablet 81 mg PO DAILY Heart 04/01/22
disease/condition 30 days #30 tabs
bicalutamide 50 mg tablet 50 mg PO DAILY Cancer 03/31/23
acetaminophen 325 mg tablet 650 mg PO Q4HPRN PRN mild 01/31/24
pain/fever
bisacodyl 10 mg rectal suppository 10 mg DC DAILYPRN PRN if MOM is 01/31/24
ineffective after 24 hrs
magnesium hydroxide 400 mg/5 mL 30 ml PO DAILYPRN PRN constipation 01/31/24
oral suspension (Milk of Magnesia)
sertraline 50 mg tablet 100 mg PO DAILY Mental 01/31/24
Health/Anxiety
atorvastatin 20 mg tablet 20 mg PO HS High Cholesterol 08/08/24
ipratropium 0.5 mg-albuterol 3 mg 3 ml inhalation R BID 08/09/24
(2.5 mg base)/3 mL nebulization Lung/Breathing Issues
soln
potassium chloride 10 mEq 30 meq PO DAILY Electrolyte 11/15/24
tablet,extended release Repletion
budesonide 0.5 mg/2 mL suspension 0.5 mg (2 mL) inhalation R BID 12/18/24
for nebulization Lung/breathing issues #60 mL
cholecalciferol (vitamin D3) 50 50 mcg PO DAILY def #0 tabs 12/18/24
mcg (2,000 unit) tablet
cyanocobalamin (vitamin B-12) 1,000 mcg PO DAILY Supplement #0 12/18/24
1,000 mcg tablet (Vitamin B-12) tabs
furosemide 80 mg tablet 80 mg PO BID@0800,1600 Heart 12/18/24
Failure #60 tabs
ipratropium 0.5 mg-albuterol 3 mg 3 ml inhalation R Q4HPRN PRN 12/18/24
(2.5 mg base)/3 mL nebulization shortness of breath #0 mL
soln
metoprolol succinate 25 mg 25 mg PO DAILY Heart 12/18/24
tablet,extended release 24 hr disease/condition #30 tabs
amlodipine 5 mg tablet (Norvasc) 5 mg PO DAILY Blood Pressure 02/23/25
fluticasone propionate 50 2 spray intranasal DAILY Congestion 02/23/25
mcg/actuation nasal
spray,suspension
menthol 0.44 %-zinc oxide 20.6 % 1 applic topical TID BUTTOCK 02/23/25
topical ointment (Moisture Barrier
Ointment)
prednisone 5 mg tablet 5 mg PO MOWEFR COPD 02/23/25
sodium phosphates 19 gram-7 118 ml DC DAILYPRN PRN if no bm 03/16/25
gram/118 mL enema (Fleet Enema) aftr duloclax
divalproex 250 mg tablet,delayed 250 mg PO TID Seizures 06/03/25
release (Depakote)
[2025-06-05 10:48] LABS: B.E. 22.5 mmol/L; O2 Saturation % 78.1 % (94-98); PCO2 59 mmHg (35-48)
[2025-06-05 10:50] LABS: HCO3 48.2 mmol/L (21-28); PO2 43 mmHg (83-108)
[2025-06-05 11:00] VITALS: BP 127/85
--- NOTE | 2025-06-05 11:39 | W.PN.HOSP.TC ---
Today's Communication/Plan
-
IV antibiotics. IV acetazolamide. Neurology eval.
Assessment / Plan
Assessment / Plan
Physical exam:
General: Acutely ill
HEENT: Normocephalic, Atraumatic and Moist Mucous Membranes
Respiratory: Decreased breath sounds bilaterally; Negative Wheezes, Rales or Rhonchi
Cardiac: Regular Rhythm and S1/S2
GI: Soft, Nontender and Nondistended
Musculoskeletal: No Clubbing, No Cyanosis and No Edema
Neuro: Awake, Alert and Disoriented, no neurological deficits appreciated
Psych: Lack of judgment and insight
A/P:
IMPRESSION:
74-year-old male with past medical history of COPD (on 2 L via nasal cannula at baseline), CAD status postacute CO with 2 cardiac stents, previous renal failure, anxiety and bipolar disorder presenting to the emergency department via EMS from
[facility] where patient is a long-term resident for evaluation of reported change in mental status
Assessment/plan
Acute metabolic encephalopathy
Possible secondary to CO2 retention.
Urinalysis with gram-negative rods
VBG shows pH 7.54, pCO2 63
Continue home biPAP
Recent admission on February with similar presentation.
06/04:
Will start empirically on IV ceftriaxone and follow-up urine culture
Seen CT scan of the head and unremarkable for acute findings
Updated sisterCamila
06/05:
Arterial blood gas shows improvement of pCO2--> 7.52/59/43/48.2/78.1
Continue IV ceftriaxone--> urine culture with gram-negative bacilli
Neurology consult given persistent of encephalopathy despite treatment as above
Acute on chronic hypercapnic respiratory failure
Chronic hypoxic respiratory failure at baseline oxygen 2 L
severe COPD at baseline
VBG shows pH 7.54, pCO2 63
Patient awake, but not fully oriented
-Currently pt is on 2 L nasal cannula which is baseline
Chest X ray doen shows Pulmonary interstitium at least top normal, cannot exclude acute interstitial process such as pneumonitis or edema.
Continue home and
Patient takes prednisone at home 5 mg Tuesday/Tuesday/Tuesday
No role for antibiotic currently since no leukocytosis or fever
Outpatient follow-up with Dr. Madrid
06/04:
While hypercapnia is improving, patient continues to have some encephalopathy and also might require pulmonary clearance if GI procedure needed so we will request pulmonary consult.
06/05:
Appreciate pulmonary input
Pulmonary planning on starting him on IV Diamox today for metabolic alkalosis
Worsening anemia and heme test stools positive
Start IV Protonix twice daily
Downgrade diet to clear liquid diet for now and advance per GI
GI consult-discussed with GI via [employer] text
06/05:
Hemoglobin 8.8 today
Diet per GI
Continue IV Protonix twice a day
Plan for upper GI series today but patient refused earlier so we will reevaluate later today
Follow-up GI recommendations
Hypokalemia
Repleted and trend-K back to normal today
Pulmonary hypertension:
- Echocardiogram in 11/2024 suggested estimated pulmonary artery pressure of 65 with preserved LVEF of 60 to 65%. Normal RV size and function
Optimize volume with current doses of Lasix bronchodilators supplemental oxygen
Chronic diastolic CHF
Continuing with Lasix 80 mg
Most recent echo in November 2024 showed :
Normal left ventricular size and systolic function. No regional wall motion
abnormalities are seen. LV ejection fraction is 60-65% by visual assessment.
Mild concentric left ventricular hypertrophy.
Normal right ventricular size. Normal right ventricular systolic function.
Mild mitral regurgitation.
Mild tricuspid regurgitation. Estimated pulmonary artery pressure of 65 mmHg.
Assuming a right atrial pressure of 3 mmHg.
CAD with history of PCI
Aspirin 81 mg ,statin 20 mg , Metoprolol 25 mg
Prostate cancer history
cont bicalutamide
Depression
continue Zoloft
History�of�hypertension
Continue home meds
History of hyperlipidemia
Continue�statin
�
CODE STATUS:�Full�code
DVT�prophylaxis:�SCDs for now. Hold Lovenox due to anemia
Total time spent on today's encounter was 57 minutes which included time spent in counseling the patient/family regarding diagnosis and treatment plan as listed above, goals of care, and symptom management. Case was discussed with nursing staff,
specialists, and care coordinators/case management. All labs and imaging personally reviewed by me. Remainder the time spent in detailed review of previous records, lab data, imaging, and other medical provider documentation.
Anticipated Discharge: > 48 hours
Subjective/Interval History
-
Date of Service: June 05, 2025
Patient alert but very completely disoriented and all he says does not make any sense. Denies focal weakness. Denies paresthesias. Denies headache. Denies vision abnormalities.
Objective Data
-
Labs:
Laboratory Results
06/05/25 06/05/25
05:56 10:35
WBC 6.8
Hgb 8.8 L
Hct 29.9 L
Plt Count 288
HCO3 48.2 H*
Sodium 140
Potassium 3.6
Chloride 89 L
Carbon Dioxide 45 H
BUN 24 H
Creatinine 1.1
Glucose 77
Calcium 8.5
Total Bilirubin 0.5
AST 21
ALT 13
Alkaline Phosphatase 73
Vital Signs:
Vital Signs
Temp Pulse Resp BP Pulse Ox
97.8 F 52 14 118/54 93
06/05/25 07:00 06/05/25 07:24 06/05/25 07:24 06/05/25 07:00 06/05/25 07:24
I&O
06/04/25 06/05/25 06/06/25
06:59 06:59 06:59
Intake Total 100 / 100 480 / 480
Output Total 500 / 500
Balance -400 / -400 480 / 480
[2025-06-05] MEDS: CASODEX PO (11:49)
[2025-06-05] MEDS: DEPAKOTE (12 HR RELEASE) PO (11:49)
[2025-06-05] MEDS: KCL PO (11:49)
[2025-06-05] MEDS: DELTASONE PO (11:49)
[2025-06-05] MEDS: LOW STRENGTH ASPIRIN PO (11:50)
[2025-06-05] MEDS: PROTONIX IV IV (11:51)
[2025-06-05] MEDS: NORVASC PO (11:51)
[2025-06-05] MEDS: ZOLOFT PO (11:51)
[2025-06-05] MEDS: NSS (PRESERVATIVE FREE) IV (11:51)
[2025-06-05] MEDS: VITAMIN D3 (cholecalciferol) PO (11:52)
[2025-06-05] MEDS: TOPROL XL PO (11:52)
[2025-06-05] MEDS: VITAMIN B-12 PO (11:52)
[2025-06-05] MEDS: LASIX PO (11:53)
[2025-06-05] MEDS: ROCEPHIN 1000 MG IV (13:09)
[2025-06-05] MEDS: STERILE WATER FOR INJECTION 10 ML IV (13:09)
--- NOTE | 2025-06-05 13:32 | CM ---
Chart reviewed. IV antibiotics. IV acetazolamide. Neurology eval.
CM will cont to follow for d/c planning
Plan: Return to [facility] when stable
--- NOTE | 2025-06-05 15:20 | PTCARENOTE ---
Pt is refusing vital signs for the 3pm hour. Pt educated on vital signs and the use of them, pt still refused.
--- NOTE | 2025-06-05 16:05 | W.PN.GI.CBS2 ---
Today's Communication / Plan
-
diet
Assessment / Plan
-
Pt is a 74yo with hx CAD with prior cardiac stent, prior ND, prior renal failure, prostate CA, CHF, severe COPD and pulm HTN, HTN, hyperlipidemia, bipolar disorder, RICARDO-suspected, medical non compliance presents to ER with change in mental status
with concern for elevated Co2 level. Pt also with concern for UTI. Asked to see as noted with black stool per nursing staff and hbg 8-9 range with prior hbg 9 in February and 10-12 over last winter and spring. In review with patient he admits some
some loose stool but denies any GI issues with dysphagia, GERD, nausea, vomiting, abdominal pain, constipation or seeing red or black in stools. Per staff patient conversant but forget for many questions and poor historian. On chronic steroids but
no NSAID per home med list.
impression:
heme pos stool
current hgb stable
plan:
refusing UGI
high risk for sedation
hgb stable
would not do anything at this point unless acutely bleeding
ok to eat
will sign off
Subjective
Subjective
Date of Service: June 05, 2025
Pt rambling but just wants to eat. doesn't want UGI
Objective
Data Reviewed
Laboratory Data:
Laboratory Results
06/05/25 05:56
06/05/25 05:56
Laboratory Results
PT 15.1 Sec (11.4-14.6) H 06/03/25 08:28
INR 1.16 06/03/25 08:28
APTT 32.7 Sec (23.4-35.0) 06/03/25 08:28
Magnesium 2.2 mg/dl (1.6-2.3) 06/04/25 06:11
Total Bilirubin 0.5 mg/dl (0.2-1.3) 06/05/25 05:56
AST 21 U/L (17-59) 06/05/25 05:56
ALT 13 U/L (0-50) 06/05/25 05:56
Alkaline Phosphatase 73 U/L (38-126) 06/05/25 05:56
Vital Signs and I&O:
Vital Signs
Temp Pulse Resp BP Pulse Ox
98.6 F 61 17 127/85 96
06/05/25 11:00 06/05/25 11:00 06/05/25 11:00 06/05/25 11:00 06/05/25 11:00
I&O
06/04/25 06/05/25 06/06/25
06:59 06:59 06:59
Intake Total 100 / 100 480 / 480
Output Total 500 / 500
Balance -400 / -400 480 / 480
Physical Exam
Physical Exam
GI: Soft and Non Distended
[2025-06-05] MEDS: DEPAKOTE (12 HR RELEASE) 250 MG PO ×2 (16:59→21:38)
[2025-06-05] MEDS: DIAMOX 2.5 MG IV ×2 (16:59→23:42)
[2025-06-05] MEDS: VITAMIN B1 100 MG PO (17:00)
[2025-06-05 19:30] VITALS: BP 135/68
[2025-06-05] MEDS: NSS (PRESERVATIVE FREE) 10 ML IV (20:41)
[2025-06-05] MEDS: PROTONIX IV 40 MG IV (20:45)
[2025-06-05] MEDS: LIPITOR 20 MG PO (21:38)
[2025-06-05 23:50] VITALS: BP 131/62
[2025-06-06 00:09] LABS: Folate 10.8 ng/ml (2.76-20)
[2025-06-06 03:33] VITALS: BP 116/57
[2025-06-06 06:00] VITALS: BMI 26.3
[2025-06-06 06:42] LABS: Hematocrit 32.1 % (39.0-52.0); Hemoglobin 9.3 g/dL (13.0-18.0); Mean Corp Hgb Conc. 29.0 g/dL (33.0-37.0); Mean Corpuscular Volume 76.8 fL (80.0-94.0); Nucleated Red Blood Cells % 0 % (-); Platelet Count 310 10^3/uL (130-400); Red Cell Dist. Width 16.3 % (11.5-14.5)
[2025-06-06 06:45] LABS: Ammonia < 9 umol/L (9-30)
[2025-06-06 07:00] VITALS: BP 148/62
[2025-06-06 07:04] LABS: ALT (SGPT) 18 U/L (0-50); AST (SGOT) 26 U/L (17-59); Albumin 3.8 g/dl (3.5-5.0); Alkaline Phosphatase 86 U/L (38-126); Blood Urea Nitrogen 20 mg/dl (9-20); Calcium 8.8 mg/dl (8.4-10.2); Chloride 93 mmol/L (98-107); Estimated Creatinine Clearance 52 ml/min; Glucose 96 mg/dl (70-99); Potassium 3.4 mmol/L (3.5-5.1); Sodium 143 mmol/L (135-145); Total Protein 6.8 g/dl (6.3-8.2); eGFR 57.29
[2025-06-06 07:14] LABS: Carbon Dioxide 44 mmol/L (22-30)
[2025-06-06] MEDS: DUONEB 3 ML INH ×2 (07:30→19:55)
[2025-06-06] MEDS: PULMICORT 0.5 MG INH ×2 (07:32→19:55)
[2025-06-06 07:54] LABS: Vitamin B12 972 pg/ml (239-931)
[2025-06-06] MEDS: DIAMOX 2.5 MG IV (08:01)
[2025-06-06] MEDS: NSS (PRESERVATIVE FREE) 10 ML IV (08:02)
[2025-06-06] MEDS: CASODEX 50 MG PO (08:03)
[2025-06-06] MEDS: DEPAKOTE (12 HR RELEASE) 250 MG PO ×3 (08:03→20:49)
[2025-06-06] MEDS: PROTONIX IV 40 MG IV (08:03)
[2025-06-06] MEDS: VITAMIN D3 (cholecalciferol) 50 MCG PO (08:03)
[2025-06-06] MEDS: KCL 30 MEQ PO (08:03)
[2025-06-06] MEDS: TOPROL XL 25 MG PO (08:03)
[2025-06-06] MEDS: VITAMIN B-12 1000 MCG PO (08:04)
[2025-06-06] MEDS: LOW STRENGTH ASPIRIN 81 MG PO (08:04)
[2025-06-06] MEDS: NORVASC 5 MG PO (08:04)
[2025-06-06] MEDS: ZOLOFT 100 MG PO (08:04)
[2025-06-06] MEDS: VITAMIN B1 100 MG PO (08:04)
--- NOTE | 2025-06-06 09:51 | W.PN.PUL3 ---
Today's Communication / Plan
-
This is likely baseline MS, psych eval noted
pH improving on diamox, 7.54/ -> 7.52/59, repeat VBG in AM
Can likely switch back to lasix in next 24 hours, but would cut dose in half moving forward
PT/OT, IS encouraged
Can eval for d/c planning otherwise if no GI procedures are being completed
Assessment
-
Patient is a 74 year old M with previous history of severe COPD/emphysema, chronic hypoxemia, obesity, suspected RICARDO/OHS (refused testing), noncompliance presenting to ER with change in mental status and increased confusion. He was sent by
[facility]. ABG on admission 7.5 which is improved compared to prior. He is planning on obtaining EGD and C-scope procedures by GI, we are asked for preoperative evaluation.
Chronic hypoxic and hypercarbic respiratory failure
Subacute HF exacerbation, mild-proBNP 1340 <- 2490
Medical noncompliance
Advanced COPD/emphysema without acute exacerbation
Obesity hypoventilation syndrome suspected-refused BIPAP
Weight loss, 11/2024 weight 102kg, now 85 kg (~40lbs weight loss in 6 mos)
Metabolic alkalosis
Conditions present DINING ROOM HOST:
Coronary disease with history of LAD stent and elevated filling pressures per catheterization December 2021
Noncompliance, refusal of treatment
Severe COPD/emphysema, GOLD IV
FEV1 30%
Follows with Dr. Marte in OP last seen 06/2024 - Saw Delmy MARADIAGA.
Regimen: Pulmicort twice a day/DuoNebs 3-4 times a day/albuterol HFA as needed.
Declined low-dose radiation screening-has not followed through. Most recent CT chest in the hospital 08/15/2024: No lung nodules.
Chronic hypoxemia, on 2-4L/Poor compliance with oxygen.
Severe pulm hypertension, PA pressure 70-likely due to chronic hypercapnic respiratory failure/advanced COPD
Echocardiogram 08/09/2024: LVEF 55%. Mild LVH. Dilated right ventricular with low normal RV systolic function. Estimated pulmonary pressure 65-70 mmHg.
Suspect RICARDO/OHS, never had sleep study/declined testing
He declined PAP therapy 06/2024
Prostate cancer
Incomplete right bundle branch block
Overweight BMI 26
Prot mirabilis UTI
History of lower extremity cellulitis
Former smoker: Quit at least 2-1/2 years ago. 40+ pack year history
Plan
Currently 93% on 6L NC (baseline use 4-5L)--wean O2 as tolerated--now on 2L
Blood gas shows stable chronic hypercapnia--seems compensated now
Continue with BiPAP with sleep (15/5cmH2O)--reports continued noncompliance
Wean O2 to off as able
ABG previously done--showing chronic CO2 retention
7.44/73- baseline 02/2025
Repeat 06/03/25: 7.54/63 -> 7.52/59
Hypercarbia is likely improved following weight loss
Repeat VBG in AM
Imaging reviewed--
CXR 12/12/2024 with bilateral interstitial changes, right pleural effusion/atelectasis
CT chest 08/15/2024 with large pericardial fat pad, emphysema, pleural calcifications and mild interstitial changes, mild right basilar interstitial process
CT chest obtained 12/16 shows extensive pneumonia in the posterior right upper lobe, RML + right lower lobe with small bilateral pleural effusions with calcification along the pleura suggesting there is a component of chronicity here
Chronic aspiration could be a contributing issue as well
Repeat CXR does not appear significantly different on my review
Echocardiogram from 12/13/2024 consistent with severe pulm hypertension, normal biventricular function - no significant changes compared to prior echo on 08/09/2024
Mild elevation of proBNP from prior
Continued on home lasix but this is likely causing worsening metabolic alkalosis
Change regiment to diamox for now, complete 3 days
Can transition back to lasix but would cut dose in half
Weight loss noted, anemia
GI consult obtained for procedures
His pulmonary risk is likely high given history of severe COPD, RICARDO with continued noncompliance
He has refused testing/treatments in the past
He remains confused and lacking insight into his condition or that a procedure is being discussed
DVT prophylaxis: LMWH
GI prophylaxis: Not indicated
Poor prognosis overall
Patient is full code.
As below-he has declined to address CODE STATUS in the past
Reviewed prior notes extensively
Prior Discussions
He understands high risk of readmission and without noninvasive mechanical ventilation.
Multiple extensive discussion with him in the outpatient setting and during this admission.
Patient has repeatedly stated he has no intention to continue BPAP as outpatient: we have discussed hospice but he does not believe he is ill
He does not feel he has any issue with his lungs, he is in 'perfect health.'
He does not wish to change his code status and does not have family/medical POA designation (he says he has no children or siblings, despite sister is contact). He feels he does not need anyone.
He is not ready for hospice despite his level of noncompliance.
Overall poor prognosis given recurrent evidence of medical noncompliance, comorbidities, pre-existing cognitive impairment and likely paranoid psychosis. Noted full code status.
Will benefit from GOC discussion with family, given his multiple comorbidities and persistent medical noncompliance. He may be at increased risk for prolonged mechanical ventilation and associated complications. In my humble opinion he should be
DNR/DNI.
This was discussed with him and care team on prior visits, unfortunately he has very poor insight
Not much else to offer.
Follow up with Dr. Marte after discharge known to have poor compliance with therapy, unable to afford medications, poor compliant with oxygen, refusing BiPAP
Last time seen in June 2024 with [facility].
Diagnostic Data
CT chest 08/15/2024-no evidence for pulm embolism, moderate to advanced emphysematous lung changes and in the posterior right lower lobe bronchial wall thickening suggesting secretions or mucous plugging.
CXR 08/08/24- Cardiomegaly. Radiographic findings felt to most likely represent pulmonary edema.
CXR 03-31-23 (portable) c/w 01-16-22 (PA/lat): Old films with no infiltrates. Current film slightly lordotic/rotated. R basilar linear atelectasis, mild pulm vasc congestion
PET CT 01-17-23 IMPRESSION: [Marked uptake of activity in the prostate gland suspicious for malignancy.] Extension of malignancy to involve the seminal vesicles cannot be excluded on the basis of this study. Coronary artery calcifications and
sigmoid diverticulosis. Please note, evaluation may be limited with possible false negative results in light of the large volume of activity seen in the prostate gland.
VBG 12/12/2024: 7.51/71/110-likely stable as prior ABG 11/15/2024 was 7.45/71/90
Bilateral Doppler 12/12/2024: Negative for DVT
R leg doppler 03-31-23: negative
TTE 04-01-23 CONCLUSIONS: Normal left ventricular chamber size. Normal left ventricular systolic function. Left ventricular ejection fraction is 55% by visual estimate. Normal regional wall motion. Mild concentric left ventricular hypertrophy. Stage
II diastolic dysfunction suggestive of abnormal relaxation and increased filling pressures. Moderately dilated right ventricle with moderately reduced systolic function. Dilated right atrium. Mild to moderate tricuspid regurgitation. Estimated
pulmonary artery pressure of 70 mmHg assuming a right atrial pressure of 15 mmHg. Compared to prior study dated 01/18/22 which was directly reviewed, LV function was previously hyperdynamic, otherwise no significant change.
Spirometry 09/08/2021: FEV1 /FVC 40%, FEV1 0.97 L-30%, FVC 2.41 L -55%. Stable mixed ventilatory defect. Severe airflow obstruction and restriction. Stable compared to July 2017
-----
Total time spent today was 51 minutes for this encounter. Time includes reviewing laboratory test/imaging results, reviewing pertinent medical records, obtaining and reviewing medical history, performing an appropriate exam, ordering medications,
tests and procedures. Time also includes documentation of this encounter, coordinating patient care and communicating with other healthcare professionals. Total time does not include separately billed tests performed on this date of service.
Subjective Data
-
Date of Service:
Date of Service: June 06, 2025
Chief Complaint: Pulmonary Follow Up
Subjective:
Doing well today, offers no complaints
Tangential thought process but able to communicate well
Objective Data
Data Reviewed
Vital Signs / I&O / Oxygen:
Vital Signs
Temp Pulse Resp BP Pulse Ox
97.6 F 16 16 148/62 98
06/06/25 07:00 06/06/25 07:34 06/06/25 07:00 06/06/25 07:00 06/06/25 07:34
Intake and Output
06/05/25 06/06/25 06/07/25
06:59 06:59 06:59
Intake Total 480 / 480 240 / 240
Balance 480 / 480 240 / 240
SaO2 98
Nasal Cannula flow liters per 2
minute
Physical Exam
General: Comfortable and Other (NAD)
HEENT: Normocephalic, Anicteric, Moist Mucous Membranes and Other (poor dentition)
Cardiovascular: S1-S2 and Regular Rhythm
Respiratory: Clear and Non-Labored Respirations
GI: Soft, Non Distended and Non Tender
Neurology: Awake, Alert, No Motor Deficits and Other (delusional thinking)
Skin: Warm and Dry
Labs/Micro/Reports
Lab Data
06/06/25 06:13
06/06/25 06:13
Laboratory Results
06/05/25
10:35
pH 7.52 H
pCO2 59 H
pO2 43 L*
HCO3 48.2 H*
O2 Delivery Level
Microbiology
06/04/25 04:51 Urine Urine Culture - Final
Proteus mirabilis
06/03/25 16:18 Nose MRSA Screen - Final
No Methicillin Resistant Staphylococcus aureus isolated.
--- NOTE | 2025-06-06 10:40 | PTCARENOTE ---
pt refused to have his 11am vital signs taken.
--- NOTE | 2025-06-06 10:40 | PTCARENOTE ---
pt was bladder scanned and the results were that he was >400 ml's in his bladder. I explained what I had to do to remove the urine from his bladder and the pt refused. The pt requested a new urinal and was re-educated to urinate in the urinal.
--- NOTE | 2025-06-06 11:25 | W.PN.HOSP.TC ---
Today's Communication/Plan
-
Psychiatry eval. PPI and potassium replacement
Assessment / Plan
Assessment / Plan
Physical exam:
General: Acutely ill
HEENT: Normocephalic, Atraumatic and Moist Mucous Membranes
Respiratory: Decreased breath sounds bilaterally; Negative Wheezes, Rales or Rhonchi
Cardiac: Regular Rhythm and S1/S2
GI: Soft, Nontender and Nondistended
Musculoskeletal: No Clubbing, No Cyanosis and No Edema
Neuro: Awake, Alert and Disoriented, no neurological deficits appreciated
Psych: Lack of judgment and insight
A/P:
IMPRESSION:
74-year-old male with past medical history of COPD (on 2 L via nasal cannula at baseline), CAD status postacute DE with 2 cardiac stents, previous renal failure, anxiety and bipolar disorder presenting to the emergency department via EMS from
[facility] where patient is a long-term resident for evaluation of reported change in mental status
Assessment/plan
Acute metabolic encephalopathy
Possible secondary to CO2 retention.
Urinalysis with gram-negative rods
VBG shows pH 7.54, pCO2 63
Continue home biPAP
Recent admission on February with similar presentation.
06/04:
Will start empirically on IV ceftriaxone and follow-up urine culture
Seen CT scan of the head and unremarkable for acute findings
Updated sisterCamila
06/05:
Arterial blood gas shows improvement of pCO2--> 7.52/59/43/48.2/78.1
Continue IV ceftriaxone--> urine culture with gram-negative bacilli
Neurology consult given persistent of encephalopathy despite treatment as above
06/06:
Continue IV antibiotics
Appreciate neurology input; neurology suspect underlying dementia.
TSH, B12, ammonia levels, all within normal limits
Valproic acid pending
On oral thiamine
Psychiatry consult today
Acute on chronic hypercapnic respiratory failure
Chronic hypoxic respiratory failure at baseline oxygen 2 L
severe COPD at baseline
VBG shows pH 7.54, pCO2 63
Patient awake, but not fully oriented
-Currently pt is on 2 L nasal cannula which is baseline
Chest X ray doen shows Pulmonary interstitium at least top normal, cannot exclude acute interstitial process such as pneumonitis or edema.
Continue home and
Patient takes prednisone at home 5 mg Tuesday/Tuesday/Tuesday
No role for antibiotic currently since no leukocytosis or fever
Outpatient follow-up with Dr. Madrid
06/04:
While hypercapnia is improving, patient continues to have some encephalopathy and also might require pulmonary clearance if GI procedure needed so we will request pulmonary consult.
06/05:
Appreciate pulmonary input
Pulmonary planning on starting him on IV Diamox today for metabolic alkalosis
06/06:
Continue on Diamox
Respiratory status relatively stable
Worsening anemia and heme test stools positive
Start IV Protonix twice daily
Downgrade diet to clear liquid diet for now and advance per GI
GI consult-discussed with GI via [place] text
06/05:
Hemoglobin 8.8 today
Diet per GI
Continue IV Protonix twice a day
Plan for upper GI series today but patient refused earlier so we will reevaluate later today
Follow-up GI recommendations
06/06:
Patient refused upper GI series
GI signing off
Continue PPI and monitor hemoglobin
Hypokalemia
Repleted and trend-K back to normal today
Pulmonary hypertension:
- Echocardiogram in 11/2024 suggested estimated pulmonary artery pressure of 65 with preserved LVEF of 60 to 65%. Normal RV size and function
Optimize volume with current doses of Lasix bronchodilators supplemental oxygen
Chronic diastolic CHF
Continuing with Lasix 80 mg
Most recent echo in November 2024 showed :
Normal left ventricular size and systolic function. No regional wall motion
abnormalities are seen. LV ejection fraction is 60-65% by visual assessment.
Mild concentric left ventricular hypertrophy.
Normal right ventricular size. Normal right ventricular systolic function.
Mild mitral regurgitation.
Mild tricuspid regurgitation. Estimated pulmonary artery pressure of 65 mmHg.
Assuming a right atrial pressure of 3 mmHg.
CAD with history of PCI
Aspirin 81 mg ,statin 20 mg , Metoprolol 25 mg
Prostate cancer history
cont bicalutamide
Depression
continue Zoloft
History�of�hypertension
Continue home meds
History of hyperlipidemia
Continue�statin
�
CODE STATUS:�Full�code
DVT�prophylaxis:�Restart Lovenox
Total time spent on today's encounter was 56 minutes which included time spent in counseling the patient/family regarding diagnosis and treatment plan as listed above, goals of care, and symptom management. Case was discussed with nursing staff,
specialists, and care coordinators/case management. All labs and imaging personally reviewed by me. Remainder the time spent in detailed review of previous records, lab data, imaging, and other medical provider documentation.
Anticipated Discharge: > 48 hours
Subjective/Interval History
-
Date of Service: June 06, 2025
Patient alert, less disoriented but still off. Afebrile
Objective Data
-
Labs:
Laboratory Results
06/06/25
06:13
WBC 6.9
Hgb 9.3 L
Hct 32.1 L
Plt Count 310
Sodium 143
Potassium 3.4 L
Chloride 93 L
Carbon Dioxide 44 H
BUN 20
Creatinine 1.3
Glucose 96
Calcium 8.8
Total Bilirubin 0.3
AST 26
ALT 18
Alkaline Phosphatase 86
Vital Signs:
Vital Signs
Temp Pulse Resp BP Pulse Ox
97.6 F 16 16 148/62 98
06/06/25 07:00 06/06/25 07:34 06/06/25 07:00 06/06/25 07:00 06/06/25 07:34
I&O
06/05/25 06/06/25 06/07/25
06:59 06:59 06:59
Intake Total 480 / 480 240 / 240
Balance 480 / 480 240 / 240
[2025-06-06] MEDS: KCL 40 MEQ PO (12:02)
[2025-06-06] MEDS: STERILE WATER FOR INJECTION 10 ML IV (13:16)
[2025-06-06] MEDS: ROCEPHIN 1000 MG IV (13:17)
[2025-06-06 15:00] VITALS: BP 121/55
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
--- NOTE | 2025-06-06 15:11 | PTCARENOTE ---
Pt refused 3pm vital signs to be taken
--- NOTE | 2025-06-06 15:50 | CM ---
CM reviewed chart, care ongoing.
Psych consulted.
IV antibiotics.
CM will continue to follow for all discharge planning needs.
Plan: Return to [facility] when stable
[2025-06-06] MEDS: LOVENOX 40 MG SC (16:58)
[2025-06-06] MEDS: DIAMOX 250 MG PO ×2 (16:58→23:43)
[2025-06-06 19:30] VITALS: BP 106/52
[2025-06-06] MEDS: LIPITOR 20 MG PO (20:49)
[2025-06-06] MEDS: PROTONIX IV IV (20:50)
[2025-06-06] MEDS: NSS (PRESERVATIVE FREE) IV (20:50)
[2025-06-06 23:54] VITALS: BP 122/60
[2025-06-07 03:21] VITALS: BP 124/51
[2025-06-07 06:00] VITALS: BMI 27.6
--- NOTE | 2025-06-07 06:00 | PTCARENOTE ---
Patient refused standing scale for daily weight. Completed with bed scale.
[2025-06-07 07:00] VITALS: BP 116/61
[2025-06-07] MEDS: DUONEB 3 ML INH (07:52)
[2025-06-07] MEDS: PULMICORT 0.5 MG INH (07:52)
--- NOTE | 2025-06-07 09:07 | W.PN.PUL3 ---
Today's Communication / Plan
-
Remains stable, on 2L--can wean to off, home O2 eval if needed but he will likely refuse
Refused labs this AM and vitals, this is unfortunately his baseline behavior
I will transition his diamox back to lasix, but moving forward would continue daily dosing to avoid further alkalosis
D/c planning per team if otherwise stable
We will arrange OP FU
No further recs from out standpoint- will sign off, pls call with questions
Assessment
-
Patient is a 74 year old M with previous history of severe COPD/emphysema, chronic hypoxemia, obesity, suspected RICARDO/OHS (refused testing), noncompliance presenting to ER with change in mental status and increased confusion. He was sent by
[facility]. ABG on admission 7.5 which is improved compared to prior. He is planning on obtaining EGD and C-scope procedures by GI, we are asked for preoperative evaluation.
Chronic hypoxic and hypercarbic respiratory failure
Subacute HF exacerbation, mild-proBNP 1340 <- 2490
Medical noncompliance
Advanced COPD/emphysema without acute exacerbation
Obesity hypoventilation syndrome suspected-refused BIPAP
Weight loss, 11/2024 weight 102kg, now 85 kg (~40lbs weight loss in 6 mos)
Metabolic alkalosis
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
Coronary disease with history of LAD stent and elevated filling pressures per catheterization December 2021
Noncompliance, refusal of treatment
Severe COPD/emphysema, GOLD IV
FEV1 30%
Follows with Dr. Marte in OP last seen 06/2024 - Saw Delmy MARADIAGA.
Regimen: Pulmicort twice a day/DuoNebs 3-4 times a day/albuterol HFA as needed.
Declined low-dose radiation screening-has not followed through. Most recent CT chest in the hospital 08/15/2024: No lung nodules.
Chronic hypoxemia, on 2-4L/Poor compliance with oxygen.
Severe pulm hypertension, PA pressure 70-likely due to chronic hypercapnic respiratory failure/advanced COPD
Echocardiogram 08/09/2024: LVEF 55%. Mild LVH. Dilated right ventricular with low normal RV systolic function. Estimated pulmonary pressure 65-70 mmHg.
Suspect RICARDO/OHS, never had sleep study/declined testing
He declined PAP therapy 06/2024
Prostate cancer
Incomplete right bundle branch block
Overweight BMI 26
Prot mirabilis UTI
History of lower extremity cellulitis
Former smoker: Quit at least 2-1/2 years ago. 40+ pack year history
Plan
Currently 93% on 6L NC (baseline use 4-5L)--wean O2 as tolerated--now on 2L
Blood gas shows stable chronic hypercapnia--seems compensated now
Continue with BiPAP with sleep (15/5cmH2O)--reports continued noncompliance
Wean O2 to off as able
Eventual home O2 eval
ABG previously done--showing chronic CO2 retention
7.44/73- baseline 02/2025
Repeat 06/03/25: 7.54/63 -> 7.52/59
Hypercarbia is likely improved following weight loss
Repeat VBG in AM -- pending
He is now refusing labs
Imaging reviewed--
CXR 12/12/2024 with bilateral interstitial changes, right pleural effusion/atelectasis
CT chest 08/15/2024 with large pericardial fat pad, emphysema, pleural calcifications and mild interstitial changes, mild right basilar interstitial process
CT chest obtained 12/16 shows extensive pneumonia in the posterior right upper lobe, RML + right lower lobe with small bilateral pleural effusions with calcification along the pleura suggesting there is a component of chronicity here
Chronic aspiration could be a contributing issue as well
Repeat CXR does not appear significantly different on my review
Echocardiogram from 12/13/2024 consistent with severe pulm hypertension, normal biventricular function - no significant changes compared to prior echo on 08/09/2024
Mild elevation of proBNP from prior
Continued on home lasix but this is likely causing worsening metabolic alkalosis
Change regiment to diamox for now, complete 3 days--he has refused labs today
Can transition back to lasix but would cut dose in half
Weight loss noted, anemia
GI consult obtained for procedures
His pulmonary risk is likely high given history of severe COPD, RICARDO with continued noncompliance
He has refused testing/treatments in the past
He remains confused and lacking insight into his condition or that a procedure is being discussed
This is his baseline
DVT prophylaxis: LMWH
GI prophylaxis: Not indicated
Poor prognosis overall
Patient is full code.
As below-he has declined to address CODE STATUS in the past
Reviewed prior notes extensively
Prior Discussions
He understands high risk of readmission and without noninvasive mechanical ventilation.
Multiple extensive discussion with him in the outpatient setting and during this admission.
Patient has repeatedly stated he has no intention to continue BPAP as outpatient: we have discussed hospice but he does not believe he is ill
He does not feel he has any issue with his lungs, he is in 'perfect health.'
He does not wish to change his code status and does not have family/medical POA designation (he says he has no children or siblings, despite sister is contact). He feels he does not need anyone.
He is not ready for hospice despite his level of noncompliance.
Overall poor prognosis given recurrent evidence of medical noncompliance, comorbidities, pre-existing cognitive impairment and likely paranoid psychosis. Noted full code status.
Will benefit from [facility] discussion with family, given his multiple comorbidities and persistent medical noncompliance. He may be at increased risk for prolonged mechanical ventilation and associated complications. In my humble opinion he should be
DNR/DNI.
This was discussed with him and care team on prior visits, unfortunately he has very poor insight
Not much else to offer.
Follow up with Dr. Marte after discharge known to have poor compliance with therapy, unable to afford medications, poor compliant with oxygen, refusing BiPAP
Last time seen in June 2024 with POULTRY KILLER.
Diagnostic Data
CT chest 08/15/2024-no evidence for pulm embolism, moderate to advanced emphysematous lung changes and in the posterior right lower lobe bronchial wall thickening suggesting secretions or mucous plugging.
CXR 08/08/24- Cardiomegaly. Radiographic findings felt to most likely represent pulmonary edema.
CXR 03-31-23 (portable) c/w 01-16-22 (PA/lat): Old films with no infiltrates. Current film slightly lordotic/rotated. R basilar linear atelectasis, mild pulm vasc congestion
PET CT 01-17-23 IMPRESSION: [Marked uptake of activity in the prostate gland suspicious for malignancy.] Extension of malignancy to involve the seminal vesicles cannot be excluded on the basis of this study. Coronary artery calcifications and
sigmoid diverticulosis. Please note, evaluation may be limited with possible false negative results in light of the large volume of activity seen in the prostate gland.
VBG 12/12/2024: 7.51/71/110-likely stable as prior ABG 11/15/2024 was 7.45/71/90
Bilateral Doppler 12/12/2024: Negative for DVT
R leg doppler 03-31-23: negative
TTE 04-01-23 CONCLUSIONS: Normal left ventricular chamber size. Normal left ventricular systolic function. Left ventricular ejection fraction is 55% by visual estimate. Normal regional wall motion. Mild concentric left ventricular hypertrophy. Stage
II diastolic dysfunction suggestive of abnormal relaxation and increased filling pressures. Moderately dilated right ventricle with moderately reduced systolic function. Dilated right atrium. Mild to moderate tricuspid regurgitation. Estimated
pulmonary artery pressure of 70 mmHg assuming a right atrial pressure of 15 mmHg. Compared to prior study dated 01/18/22 which was directly reviewed, LV function was previously hyperdynamic, otherwise no significant change.
Spirometry 09/08/2021: FEV1 /FVC 40%, FEV1 0.97 L-30%, FVC 2.41 L -55%. Stable mixed ventilatory defect. Severe airflow obstruction and restriction. Stable compared to July 2017
-----
Total time spent today was 51 minutes for this encounter. Time includes reviewing laboratory test/imaging results, reviewing pertinent medical records, obtaining and reviewing medical history, performing an appropriate exam, ordering medications,
tests and procedures. Time also includes documentation of this encounter, coordinating patient care and communicating with other healthcare professionals. Total time does not include separately billed tests performed on this date of service.
Subjective Data
-
Date of Service:
Date of Service: June 07, 2025
Chief Complaint: Pulmonary Follow Up
Subjective:
No new complaints, remains on 2L NC
Has been refusing care, labs
Objective Data
Data Reviewed
Vital Signs / I&O / Oxygen:
Vital Signs
Temp Pulse Resp BP Pulse Ox
97.5 F 58 14 124/51 94
06/07/25 03:21 06/07/25 07:57 06/07/25 03:21 06/07/25 03:21 06/07/25 07:57
Intake and Output
06/06/25 06/07/25 06/08/25
06:59 06:59 06:59
Intake Total 240 / 240 1560 / 1560
Output Total 800 / 800
Balance 240 / 240 760 / 760
SaO2 94
Nasal Cannula flow liters per 2
minute
Physical Exam
General: Comfortable and Other (NAD)
HEENT: Normocephalic, Anicteric, Moist Mucous Membranes and Other (poor dentition)
Cardiovascular: S1-S2 and Regular Rhythm
Respiratory: Clear and Non-Labored Respirations
GI: Soft, Non Distended and Non Tender
Neurology: Awake, Alert, No Motor Deficits and Other (delusional thinking)
Skin: Warm and Dry
Labs/Micro/Reports
Microbiology
06/04/25 04:51 Urine Urine Culture - Final
Proteus mirabilis
06/03/25 16:18 Nose MRSA Screen - Final
No Methicillin Resistant Staphylococcus aureus isolated.
[2025-06-07] MEDS: VITAMIN D3 (cholecalciferol) 50 MCG PO (09:45)
[2025-06-07] MEDS: KCL 30 MEQ PO (09:45)
[2025-06-07] MEDS: CASODEX 50 MG PO (09:46)
[2025-06-07] MEDS: VITAMIN B1 100 MG PO (09:46)
[2025-06-07] MEDS: TOPROL XL 25 MG PO (09:46)
[2025-06-07] MEDS: DIAMOX 250 MG PO (09:46)
[2025-06-07] MEDS: ZOLOFT 100 MG PO (09:47)
[2025-06-07] MEDS: NORVASC 5 MG PO (09:47)
[2025-06-07] MEDS: VITAMIN B-12 1000 MCG PO (09:47)
[2025-06-07] MEDS: DEPAKOTE (12 HR RELEASE) 250 MG PO ×2 (09:47→15:56)
[2025-06-07] MEDS: LOW STRENGTH ASPIRIN 81 MG PO (09:47)
[2025-06-07] MEDS: PROTONIX IV IV ×2 (09:49→10:06)
[2025-06-07] MEDS: NSS (PRESERVATIVE FREE) IV ×2 (09:49→10:06)
[2025-06-07] MEDS: DELTASONE 5 MG PO (09:53)
[2025-06-07 11:00] VITALS: BP 103/46
--- NOTE | 2025-06-07 12:15 | W.PN.HOSP.TC ---
Today's Communication/Plan
-
Discharge planning
Assessment / Plan
Assessment / Plan
Physical exam:
General: Chronically ill
HEENT: Normocephalic, Atraumatic and Moist Mucous Membranes
Respiratory: Decreased breath sounds bilaterally; Negative Wheezes, Rales or Rhonchi
Cardiac: Regular Rhythm and S1/S2
GI: Soft, Nontender and Nondistended
Musculoskeletal: No Clubbing, No Cyanosis and No Edema
Neuro: Awake, Alert and Disoriented, no neurological deficits appreciated
Psych: Lack of judgment and insight
A/P:
IMPRESSION:
74-year-old male with past medical history of COPD (on 2 L via nasal cannula at baseline), CAD status postacute IN with 2 cardiac stents, previous renal failure, anxiety and bipolar disorder presenting to the emergency department via EMS from
[facility] where patient is a long-term resident for evaluation of reported change in mental status
Assessment/plan
Acute metabolic encephalopathy
Possible secondary to CO2 retention.
Urinalysis with gram-negative rods
VBG shows pH 7.54, pCO2 63
Continue home biPAP
Recent admission on February with similar presentation.
06/04:
Will start empirically on IV ceftriaxone and follow-up urine culture
Seen CT scan of the head and unremarkable for acute findings
Updated sisterCamila
06/05:
Arterial blood gas shows improvement of pCO2--> 7.52/59/43/48.2/78.1
Continue IV ceftriaxone--> urine culture with gram-negative bacilli
Neurology consult given persistent of encephalopathy despite treatment as above
06/06:
Continue IV antibiotics
Appreciate neurology input; neurology suspect underlying dementia.
TSH, B12, ammonia levels, all within normal limits
Valproic acid pending
On oral thiamine
Psychiatry consult today
06/07:
Changed IV to oral antibiotics
Patient refusing care
Pulmonary cleared him for discharge and signed off
I discussed with patient that he has option of hospice care if continue to refuse care but not sure how much he understands. In any event he is medically clear and no further inpatient care needed.
Discussed with showcase trimmer and medically cleared to go back to facility
Acute on chronic hypercapnic respiratory failure
Chronic hypoxic respiratory failure at baseline oxygen 2 L
severe COPD at baseline
VBG shows pH 7.54, pCO2 63
Patient awake, but not fully oriented
-Currently pt is on 2 L nasal cannula which is baseline
Chest X ray doen shows Pulmonary interstitium at least top normal, cannot exclude acute interstitial process such as pneumonitis or edema.
Continue home and
Patient takes prednisone at home 5 mg Tuesday/Tuesday/Tuesday
No role for antibiotic currently since no leukocytosis or fever
Outpatient follow-up with Dr. Madrid
06/04:
While hypercapnia is improving, patient continues to have some encephalopathy and also might require pulmonary clearance if GI procedure needed so we will request pulmonary consult.
06/05:
Appreciate pulmonary input
Pulmonary planning on starting him on IV Diamox today for metabolic alkalosis
06/06:
Continue on Diamox
Respiratory status relatively stable
Worsening anemia and heme test stools positive
Start IV Protonix twice daily
Downgrade diet to clear liquid diet for now and advance per GI
GI consult-discussed with GI via [place] text
06/05:
Hemoglobin 8.8 today
Diet per GI
Continue IV Protonix twice a day
Plan for upper GI series today but patient refused earlier so we will reevaluate later today
Follow-up GI recommendations
06/06:
Patient refused upper GI series
GI signing off
Continue PPI and monitor hemoglobin
Hypokalemia
Repleted and trend-K back to normal today
Pulmonary hypertension:
- Echocardiogram in 11/2024 suggested estimated pulmonary artery pressure of 65 with preserved LVEF of 60 to 65%. Normal RV size and function
Optimize volume with current doses of Lasix bronchodilators supplemental oxygen
Chronic diastolic CHF
Continuing with Lasix 80 mg
Most recent echo in November 2024 showed :
Normal left ventricular size and systolic function. No regional wall motion
abnormalities are seen. LV ejection fraction is 60-65% by visual assessment.
Mild concentric left ventricular hypertrophy.
Normal right ventricular size. Normal right ventricular systolic function.
Mild mitral regurgitation.
Mild tricuspid regurgitation. Estimated pulmonary artery pressure of 65 mmHg.
Assuming a right atrial pressure of 3 mmHg.
CAD with history of PCI
Aspirin 81 mg ,statin 20 mg , Metoprolol 25 mg
Prostate cancer history
cont bicalutamide
Depression
continue Zoloft
History�of�hypertension
Continue home meds
History of hyperlipidemia
Continue�statin
�
CODE STATUS:�Full�code
DVT�prophylaxis:�Restart Lovenox
Anticipated Discharge: Today
Subjective/Interval History
-
Date of Service: June 07, 2025
No chest pain or shortness of breath. Cognitive deficits persist. Refused lab work and refused any further care.
Objective Data
-
Vital Signs:
Vital Signs
Temp Pulse Resp BP Pulse Ox
97.3 F 58 18 116/61 94
06/07/25 07:00 06/07/25 07:57 06/07/25 07:00 06/07/25 07:00 06/07/25 07:57
I&O
06/06/25 06/07/25 06/08/25
06:59 06:59 06:59
Intake Total 240 / 240 1560 / 1560
Output Total 800 / 800
Balance 240 / 240 760 / 760
--- NOTE | 2025-06-07 12:23 | W.DCSUMMARY ---
Discharge Summary
Discharge Data
Date of Admission: 06/03/25
Date of Discharge: 06/07/25
Total time spent discharging patient (in min): 35
-
Pending Results: No
Hospital Course
Patient is 74 years old male with history of COPD, chronic hypoxemia, obesity, came into the hospital with change in mental status and found to be hypercapnic. Patient was placed on BiPAP and hypercapnia resolved. Patient also was noted to have
urinary tract infection and he has been treated with antibiotics appropriately according to cultures. Patient was seen by pulmonary. Due to his encephalopathy he was also evaluated by neurology and later on psychiatry. It was felt that his
encephalopathy was multifactorial with hypercapnia UTI but also underlying cognitive deficits, probable dementia. He has refused care throughout this hospital stay so discussions took place about possible hospice care but he is not ready for that
either although unclear how much patient understands at the moment so further discussions will continue to be entertained as outpatient. Otherwise, patient is hemodynamically stable and close back to his baseline. He has been discharged in
relatively stable condition today back to SNF.
Discharge duration: 35 minutes
Discharge Plan
-
Patient Disposition: Retirement/SNF
Discharge Diagnosis/Procedures: Acute on chronic hypercapnic hypoxic respiratory failure. Acute metabolic encephalopathy. Chronic diastolic congestive heart failure. Metabolic alkalosis. Obesity hypoventilation syndrome. Urinary tract
infection. Medical noncompliance. Severe pulmonary hypertension. Suspected obstructive sleep apnea. Acute blood loss anemia.
Diet: Low Cholesterol
Activity: As tolerated
Blood Work: Please PCP to order CBC, BMP within 1 week
Specialty Instructions: Weigh Daily- Call MD for wt gain/loss 3 lbs overnight/5 lbs in 1 week
Referrals:
Adam Leiva DO [Family Provider, Internal Medicine] - in less than 1 week
Gen Gray MD [Active, Gastroenterology] - in one to two weeks
Gabriel Xie MD [Active, Psychiatry] - in two to four weeks
Nicolette,Kacy Salazar, DO [Active, Pulmonary Medicine] - in one to two weeks
Milton Fregoso MD [Active, Neurology] - in one to two months
Shashank Gillette MD [Active, Pulmonary Medicine] - in four to six weeks
Referral Note: PFTs
Additional Discharge Medication Instructions: Consider hospice care as outpatient if continues to refuse care.
Prescriptions:
New
amoxicillin-pot clavulanate 875-125 mg Tablet
1 tab PO Q12 7 Days Qty: 14 0RF
pantoprazole [Protonix] 40 mg tablet,delayed release (DR/EC)
40 mg PO BID Qty: 60 0RF
furosemide 40 mg Tablet
40 mg PO DAILY 30 Days Qty: 30 0RF
Continued
aspirin 81 MG tablet,chewable
81 mg PO DAILY 30 Days Qty: 30 0RF
bicalutamide 50 mg tablet
50 mg PO DAILY
acetaminophen 325 mg Tablet
650 mg PO Q4HPRN PRN (Reason: mild pain/fever)
sertraline 50 mg Tablet
100 mg PO DAILY
magnesium hydroxide [Milk of Magnesia] 400 mg/5 mL suspension
30 ml PO DAILYPRN PRN (Reason: constipation)
bisacodyl 10 mg suppository
10 mg FL DAILYPRN PRN (Reason: if MOM is ineffective after 24 hrs)
atorvastatin 20 mg Tablet
20 mg PO HS
ipratropium-albuterol 0.5 mg-3 mg(2.5 mg base)/3 mL solution for nebulization
3 ml inhalation R BID
potassium chloride 10 mEq Tablet Extended Release
30 meq PO DAILY
metoprolol succinate 25 mg Tablet Extended Release 24 Hr
25 mg PO DAILY Qty: 30 11RF
ipratropium-albuterol 0.5 mg-3 mg(2.5 mg base)/3 mL Solution For Nebulization
3 ml inhalation R Q4HPRN PRN (Reason: shortness of breath) Qty: 0 0RF
cyanocobalamin (vitamin B-12) [Vitamin B-12] 1,000 mcg Tablet
1,000 mcg PO DAILY Qty: 0 0RF
cholecalciferol (vitamin D3) 50 mcg (2,000 unit) Tablet
50 mcg PO DAILY Qty: 0 0RF
budesonide 0.5 mg/2 mL Suspension For Nebulization
0.5 mg inhalation R BID Qty: 60 0RF
prednisone 5 mg Tablet
5 mg PO MOWEFR
amlodipine [Norvasc] 5 mg Tablet
5 mg PO DAILY
fluticasone propionate 50 mcg/actuation [place],Suspension
2 spray INTRANASAL DAILY
menthol-zinc oxide [Moisture Barrier Ointment] 0.44-20.6 % Ointment
1 applic TOPICAL TID
Fleet Enema 19-7 gram/118 mL Enema
118 ml FL DAILYPRN PRN (Reason: if no bm aftr duloclax)
divalproex [Depakote] 250 mg Tablet,Delayed Release (Dr/Ec)
250 mg PO TID
Discontinued
furosemide 80 mg Tablet
80 mg PO BID@0800,1600 Qty: 60 11RF
Discharge Orders:
Discharge Patient (As Directed); Ordered 06/07/25
Ordered By: Justus Hollis
Discharge Date and Time
Discharge Date/Time: 06/07/25 17:09
Print Language: ARMENIAN
[2025-06-07] MEDS: AUGMENTIN 875 MG/125 MG 1 TABLET PO (12:51)
--- NOTE | 2025-06-07 13:08 | CM ---
Chart reviewed. Patient stable for d/c today
Updated [facility] admissions, can accept patient back. Made aware PT recommended skilled rehab
Updated patient bedside. IMM verbally reviewed, copy provided, copy on chart
Patient will need ambulance transport. Transport scheduled for 4:30
[facility]
Report: [phone]

Plan: Return to [facility] today
[2025-06-07 15:00] VITALS: BP 122/65
--- NOTE | 2025-06-07 18:15 | W.PN.UPDATE ---
Update Note
Progress Note Update
pt seen this afternoon for followup assessment. pleasant, cooperative, wants to be able to go home. knows he is in [place], knows name, but consistently gets year wrong 9even after having been told.) States he is here because of breathing
problems. Feels much clearer than when he came in. Review of old records indicate that this is a chonic problem with UTIs and hypercapnea. States he will wear his breathing apparatus.
== END 2025-06-07 17:09 | DRG 70 ==
LOC: 4 WEST ACU 11:26
PROVIDERS: Physician Assistant Medical; ADMITTING PHYSICIAN General Practice; ATTENDING PHYSICIAN Hospitalist; CONSULT PHYSICIAN Internal Medicine; CONSULT PHYSICIAN Psychiatry & Neurology Neurology; CONSULT PHYSICIAN Psychiatry & Neurology Psychiatry; EMERGENCY PHYSICIAN Emergency Medicine; FAMILY PHYSICIAN Internal Medicine
DX: G93.41 Metabolic encephalopathy (principal); I21.4 Non-ST elevation (NSTEMI) myocardial infarction; J96.21 Acute and chronic respiratory failure with hypoxia; J96.22 Acute and chronic respiratory failure with hypercapnia; I50.32 Chronic diastolic (congestive) heart failure; E87.4 Mixed disorder of acid-base balance; E66.2 Morbid (severe) obesity with alveolar hypoventilation; N39.0 Urinary tract infection, site not specified; D62 Acute posthemorrhagic anemia; F03.A3 Unspecified dementia, mild, with mood disturbance; F03.A4 Unspecified dementia, mild, with anxiety; I11.0 Hypertensive heart disease with heart failure; Z91.199 Patient's noncompliance with other medical treatment and regimen due to unspecified reason; I27.20 Pulmonary hypertension, unspecified; J43.9 Emphysema, unspecified; I25.10 Atherosclerotic heart disease of native coronary artery without angina pectoris; Z85.46 Personal history of malignant neoplasm of prostate; F31.9 Bipolar disorder, unspecified; K59.00 Constipation, unspecified; E78.00 Pure hypercholesterolemia, unspecified; Z95.5 Presence of coronary angioplasty implant and graft; F17.200 Nicotine dependence, unspecified, uncomplicated; I25.2 Old myocardial infarction; I45.10 Unspecified right bundle-branch block; Z87.11 Personal history of peptic ulcer disease; Z79.51 Long term (current) use of inhaled steroids; Z79.52 Long term (current) use of systemic steroids; Z79.82 Long term (current) use of aspirin; Z79.899 Other long term (current) drug therapy; Z99.81 Dependence on supplemental oxygen
CPT/HCPCS: 36600; 70450; 71045; 80048; 80053; 81003; 81015; 82140; 82248; 82607; 82728; 82746; 82805; 83540; 83550; 83735; 83880; 84443; 85025; 85027; 85610; 85730; 87070; 87077; 87086; 87186; 92610; 93005; 94640; 97162; 97166; 99285

== ENCOUNTER 2025-06-21 12:42 | Inpatient (IN) | payer MEDICARE, OTHER, SELFPAY ==
[2025-06-21] VITALS (14 sets, daily range): BP systolic 106–146; BP diastolic 58–83; PULSE 62–76; BMI 27.4
--- NOTE | 2025-06-21 09:07 | ED.GENMED ---
History of Present Illness
<Vivian Rust PA-C - Last Filed: 06/21/25 13:19>
General
Chief Complaint: Change in Mental Status
Source: patient, ambulance crew, [facility] records and previous hospital records
Exam Limitations: dementia
Time Seen by Provider: 06/21/25 08:53
Nursing documentation reviewed up to this point in time: agreed with
History of Present Illness
History of Present Illness:
Patient is a 74-year-old male with past medical history of COPD on 2 L via nasal cannula at baseline, CAD status post PA with 2 cardiac stents, previous renal failure, anxiety, bipolar disorder, dementia, who presents to the emergency department via
EMS from [facility] where the patient is a long-term resident for evaluation of altered mental status. Patient himself is denying any complaints at this time. He denies any pain. Records from 06/03/2025 indicate that the patient was seen at
that time for a similar presentation. Patient was diagnosed with a urinary tract infection and started on a course of antibiotics. Patient was also noted to be hypercapneic as he was not using his evening BiPAP.
I was able to speak to the patient's usual nurse at his facility. She reports that although the patient is confused at baseline he typically knows who he is and who the nursing staff is including herself. He reports that this morning the patient
did not know who she was and was not making any sense when he was speaking. Apparently he was talking about cats and dogs. He was also trying to get into his roommate's bed and also tried to hit her. She reports that this is very atypical for her
prompting him to be sent to the emergency department for evaluation. She notes that the patient was on an oral antibiotic for his urinary tract infection but he completed the course.
Past History
<Vivian Rust PA-C - Last Filed: 06/21/25 13:19>
Past History
ED Past Medical History: CAD, COPD, HTN, PA, Psychiatric and Other ( Adenocarcinoma of prostate, Muscle wasting and atrophy, Hypertension, Anxiety, NSTEMI (non-ST elevated myocardial infarction), Nocturia, Heart failure with preserved ejection
fraction, VT (ventricular tachycardia), Cellulitis, Metabolic encephalopathy, Acute respiratory failure with hyp)
ED Past Surgical History: Cardiac
Social History
Tobacco: Smoker
Alcohol: None
Drug: None
Personal:
Living: penitentiary
Employment: Not employed
Family History
Family History: Unable to obtain (Patient obtunded)
Review of Systems
<Vivian Rust PA-C - Last Filed: 06/21/25 13:19>
Review of Systems
Allergies reviewed?: Yes
Unable to obtain full review of systems at this time due to: dementia
All Other Systems: ROS reviewed and negative except as documented in HPI and ROS
Constitutional: Denies fever
Respiratory: Denies cough or trouble breathing
Cardiac: Denies chest pain
ABD/GI: Denies abdominal pain or vomiting
Phy Exam
<Vivian Rust PA-C - Last Filed: 06/21/25 13:19>
General Physical Exam
General Presentation: well appearing and no apparent distress
General Skin: warm and dry
General Habitus: normal
General Mental: alert
General Hydration: appears well hydrated
ENT Exam
ENT Exam: EOMI, pharynx normal, neck supple and normocephalic
Eye Exam
Eye Exam: PERRL, EOMI, cornea clear and conjunctiva normal
Cardiovascular Exam
Cardiovascular Exam: regular rate/rhythm, no edema, no murmur and normal peripheral pulses
Pulmonary Exam
Pulmonary Exam: no respiratory distress, no stridor, no wheezing, no cough and other (diffuse rhonchi)
Gastrointestinal Exam
Gastrointestinal Exam: normal bowel sounds, non tender, soft, no organomegaly, no pulsatile mass and non distended
Neurological Exam
Neurological Exam: alert, no motor deficits, speech normal and other (oriented to place only)
Musculoskeletal Exam
Musculoskeletal Exam: full ROM and no edema
Skin Exam
Skin Exam: normal color, warm/dry, no rash and no petechia
Psychiatric Exam
Psychiatric Exam: normal mood/affect
Course
<Vivian Rust PA-C - Last Filed: 06/21/25 13:19>
Orders/Labs/Results
Orders:
Orders
06/21/25 08:46
Lidocaine 2% [Lidocaine Uro-Jet 2%] 1 syringe .ROUTE .[facility]-MED ONE
06/21/25 09:00
Blood Culture Q30M
DEMARCUS Source: Blood/Venous
Specimen Description:
06/21/25 09:09
Basic Metabolic Panel Urgent
Complete Blood Count/With Diff Urgent
Urinalysis Reflex To Culture Urgent
Date Specimen was Collected: 06/21/25
Time Specimen was Collected: 09:07
Urine Microscopic Reflex Cult Urgent
Urine Culture Urgent
DEMARCUS Source: U
Specimen Description:
Date Specimen was Collected: 06/21/25
Time Specimen was Collected: 09:07
06/21/25 09:12
CT Head W/o Iv Contrast Urgent
Comment:
Reason For Exam: altered mental status
06/21/25 09:40
CR Chest - 2 Views Urgent
Comment:
Reason For Exam: cough
06/21/25 09:42
COVID-19 Antigen Urgent
Source: Nasal Swab
Influenza A+B Rapid Molecular Urgent
DEMARCUS Source: Nasal Swab
Specimen Description:
06/21/25 Lunch
NPO
Allow oral meds: Yes
Allow clear liquids: No
ABG [Arterial Blood Gas] Urgent
%Oxygen/Room Air: 4L NC
Bipap [RESP] Urgent
Patient to use own unit?: No
Inspiratory Pressure (cm H2O): 12
Expiratory Pressure (cm H2O): 5
06/21/25 11:07
Haloperidol Lactate [Haldol] 2 mg IV NOW STA
06/21/25 11:11
Electrocardiogram (*1) Urgent
Reason for Study: QTc Monitoring
EKG- Treatment ONCE
06/21/25 11:14
Venous Blood Gas Urgent
%Oxygen/Room Air: 4L NC
06/21/25 11:15
Cefepime HCl [Maxipime] 2,000 mg IV NOW STA
06/21/25 11:24
Blood Culture Q30M
DEMARCUS Source: Blood/Venous
Specimen Description:
06/21/25 11:26
EKG- Treatment ONCE
06/21/25 11:36
Sterile Water [Sterile Water For Injection] 10 ml .ROUTE .[facility]-MED ONE
06/21/25 11:37
Vancomycin [Vancocin] 2,000 mg 0.9% Sodium Chloride 500 ml [Nss] 500 ml IV NOW
06/21/25 11:49
Admit/Transfer Patient As Directed
Co-Sign Provider:
Level of Care: Inpatient admission
Assign to:: Telemetry
Physician / Group: Pranav
Diagnosis: Respiratory failure
Reason for Telemetry: Subacute Heart Failure
Date to Stop Telemetry: 06/23/25
Time to Stop Telemetry: 11:00
Reason for Hospitalization: Above
Expected length of stay greater than two midnights?: Yes
ELOS- Estimated Length of Stay in days: 2
I certify the patient meets the requirements for IP care: Yes
06/21/25 11:50
PRN Pain Medication Management As Directed
May give lesser potent ordered pain med per pt: Yes
preference::
Protocol:: Medication orders for pain may be administered in a
manner that supports deferring to patient preference
when the pt is:
- Requesting an ordered lesser potent pain medication.
Least to most potent pain medications are defined
as: acetaminophen < NSAID < tramadol < opioids
(morphine, oxycodone, hydromorphone).
- Requesting a lesser dose of the same medication IF
ORDERED.
- Requesting a less intrusive route of administration
if both routes are prescribed by the provider (PO <
IV).
06/21/25 11:55
Code Status As Directed
Resuscitation Status: Full Code
06/21/25 13:18
Acetaminophen [Tylenol] 650 mg PO Q4HPRN PRN mild pain/fever
Bicalutamide [Casodex] 50 mg PO DAILY
Bisacodyl [Dulcolax] 10 mg RECTAL DAILYPRN PRN if MOM is ineffective after 24 hrs
Budesonide [Pulmicort] 0.5 mg INH R BID
Cefepime HCl [Maxipime] 1,000 mg IV Q8H
Dexamethasone Sod Phosphate [Decadron] 6 mg IV Q12H
Dextrose 50%-Water [Dextrose 50% Syringe] 12.5 grams IV [id number] PRN
Divalproex Delayed Rel. 12 Hr [Depakote (12 Hr Release)] 500 mg PO BID
Glucagon [GlucaGen] 1 mg IM PRN PRN
Ipratropium/Albuterol Sulfate [Duoneb] 3 ml INH R BID
Ipratropium/Albuterol Sulfate [Duoneb] 3 ml INH R Q4HPRN PRN shortness of breath
Magnesium Hydroxide [Milk of Magnesia] 30 ml PO DAILYPRN PRN constipation
Metoprolol Xl [Toprol Xl] 25 mg PO DAILY
Nirmatrelvir/Ritonavir [Paxlovid 300-100 mg Dose Pack] 1 each PO BID
Pantoprazole [Protonix] 40 mg PO BID
VANCOMYCIN Pharmacy to Dose [VANCOCIN Pharmacy to Dose] 1 each Pharmacy To Prepare [Call Pharmacy To Prepare] 0 ml IV PER PROTOCOL
fluticasone propionate 2 spray NASAL DAILY
06/21/25 13:18
Add On- LAB Routine
Tests Added?: CHF BNP
ABG [Arterial Blood Gas] Routine
%Oxygen/Room Air: 2L
Bedside Glucose Monitoring As Directed
Frequency: AC&HS
Additional Instructions:: Change to q6h if pt on TPN, tube feeding or not eating
Bipap [RESP] Routine
Patient to use own unit?: No
Inspiratory Pressure (cm H2O): 15
Expiratory Pressure (cm H2O): 5
Speech Therapy Eval & Treat Routine
DX Deep Vein Thrombosis Video Routine
06/21/25 16:30
Insulin Aspart Corrective Low [Novolog Flexpen-Low Resistance] See Protocol SC AC
06/21/25 18:00
Enoxaparin Sodium [Lovenox] 40 mg SC QPM
06/21/25 22:00
Atorvastatin [Lipitor] 20 mg PO HS
06/22/25 06:00
ECG [Electrocardiogram (*1)] IN AM
Reason for Study: QTc Monitoring
Other Reason for Exam: IV haldol administration
Glycohemoglobin (HgbA1c) IN AM
06/22/25 08:00
Amlodipine [Norvasc] 5 mg PO DAILY
Aspirin Chewable [Low Strength Aspirin] 81 mg PO DAILY
Cholecalciferol (Vitamin D3) [VITAMIN D3 (cholecalciferol)] 50 mcg PO DAILY
Furosemide [Lasix] 40 mg PO DAILY
Potassium Chloride [KCl] 30 meq PO DAILY
Sertraline HCl [Zoloft] 100 mg PO DAILY
cyanocobalamin (vitamin B-12) [Vitamin B-12] 1,000 mcg PO DAILY
06/23/25 06:00
ECG [Electrocardiogram (*1)] IN AM
Reason for Study: QTc Monitoring
Other Reason for Exam: IV haldol administration
06/23/25 11:00
DC Protocol for Telemetry ONCE
Abnormal Lab Results
06/21/25 06/21/25 06/21/25
09:09 09:42 11:14
RBC 4.45 L 10^6/uL
(4.70-6.10)
Hgb 10.0 L g/dL
(13.0-18.0)
Hct 35.5 L %
(39.0-52.0)
MCV 79.8 L fL
(80.0-94.0)
MCH 22.5 L pg
(27.0-31.0)
MCHC 28.2 L g/dL
(33.0-37.0)
RDW 16.4 H %
(11.5-14.5)
MPV 10.8 H fL
(7.4-10.4)
Absolute Lymphs (auto) 1.1 L 10^3/uL
(1.2-3.4)
Absolute Monos (auto) 0.8 H 10^3/uL
(0.1-0.6)
Lymphocytes % 15.2 L %
(20.5-51.1)
Monocytes % 10.8 H %
(1.7-9.3)
VBG pCO2 64 H mmHg
(35-48)
VBG pO2 190 H mmHg
(30-50)
VBG HCO3 42.5 H mmol/L
(22-27)
Chloride 95 L mmol/L
(98-107)
Carbon Dioxide 41 H mmol/L
(22-30)
BUN 22 H mg/dl
(9-20)
Glucose 107 H mg/dl
(70-99)
Urine Ketones 1+ A
(Negative)
Ur Occult Blood Reflex 4+ A
(Negative)
Leukocyte Esterase Rfl 1+ A
(Negative)
Urine RBC 40-50 A /HPF
(0-2)
Urine Bacteria (Reflex) Few A
(Negative)
Urine Albumin (Reflex) 2+ A
(Neg - Trace)
SARS-CoV-2 Antigen Positive A
(Negative)
06/21/25 09:09
06/21/25 09:09
Vital Signs
Initial and Last Documented VS:
Initial Vital Signs
Pulse Resp
84 28
06/21/25 08:32 06/21/25 08:32
Last Documented Vital Signs
Temp Pulse Resp BP Pulse Ox
99.6 F 76 25 116/64 98
06/21/25 08:40 06/21/25 13:00 06/21/25 13:00 06/21/25 12:00 06/21/25 13:00
<Robyn Machado, DO - Last Filed: 06/21/25 11:10>
Orders/Labs/Results
Orders:
Orders
06/21/25 08:46
Lidocaine 2% [Lidocaine Uro-Jet 2%] 1 syringe .ROUTE .[facility]
06/21/25 09:00
Blood Culture Q30M
DEMARCUS Source: Blood/Venous
Specimen Description:
06/21/25 09:09
Basic Metabolic Panel Urgent
Complete Blood Count/With Diff Urgent
Urinalysis Reflex To Culture Urgent
Date Specimen was Collected: 06/21/25
Time Specimen was Collected: 09:07
Urine Microscopic Reflex Cult Urgent
Urine Culture Urgent
DEMARCUS Source: U
Specimen Description:
Date Specimen was Collected: 06/21/25
Time Specimen was Collected: 09:07
06/21/25 09:12
CT Head W/o Iv Contrast Urgent
Comment:
Reason For Exam: altered mental status
06/21/25 09:40
CR Chest - 2 Views Urgent
Comment:
Reason For Exam: cough
06/21/25 09:42
COVID-19 Antigen Urgent
Source: Nasal Swab
Influenza A+B Rapid Molecular Urgent
DEMARCUS Source: Nasal Swab
Specimen Description:
06/21/25 Lunch
NPO
Allow oral meds: Yes
Allow clear liquids: No
ABG [Arterial Blood Gas] Urgent
%Oxygen/Room Air: 4L NC
Bipap [RESP] Urgent
Patient to use own unit?: No
Inspiratory Pressure (cm H2O): 12
Expiratory Pressure (cm H2O): 5
06/21/25 11:07
Haloperidol Lactate [Haldol] 2 mg IV NOW STA
06/21/25 11:11
Electrocardiogram (*1) Urgent
Reason for Study: QTc Monitoring
EKG- Treatment ONCE
06/21/25 11:14
Venous Blood Gas Urgent
%Oxygen/Room Air: 4L NC
06/21/25 11:15
Cefepime HCl [Maxipime] 2,000 mg IV NOW STA
06/21/25 11:24
Blood Culture Q30M
DEMARCUS Source: Blood/Venous
Specimen Description:
06/21/25 11:26
EKG- Treatment ONCE
06/21/25 11:36
Sterile Water [Sterile Water For Injection] 10 ml .ROUTE .STK-MED ONE
06/21/25 11:37
Vancomycin [Vancocin] 2,000 mg 0.9% Sodium Chloride 500 ml [Nss] 500 ml IV NOW
06/21/25 11:49
Admit/Transfer Patient As Directed
Co-Sign Provider:
Level of Care: Inpatient admission
Assign to:: Telemetry
Physician / Group: Pranav
Diagnosis: Respiratory failure
Reason for Telemetry: Subacute Heart Failure
Date to Stop Telemetry: 06/23/25
Time to Stop Telemetry: 11:00
Reason for Hospitalization: Above
Expected length of stay greater than two midnights?: Yes
ELOS- Estimated Length of Stay in days: 2
I certify the patient meets the requirements for IP care: Yes
06/21/25 11:50
PRN Pain Medication Management As Directed
May give lesser potent ordered pain med per pt: Yes
preference::
Protocol:: Medication orders for pain may be administered in a
manner that supports deferring to patient preference
when the pt is:
- Requesting an ordered lesser potent pain medication.
Least to most potent pain medications are defined
as: acetaminophen < NSAID < tramadol < opioids
(morphine, oxycodone, hydromorphone).
- Requesting a lesser dose of the same medication IF
ORDERED.
- Requesting a less intrusive route of administration
if both routes are prescribed by the provider (PO <
IV).
06/21/25 11:55
Code Status As Directed
Resuscitation Status: Full Code
06/21/25 13:18
Acetaminophen [Tylenol] 650 mg PO Q4HPRN PRN mild pain/fever
Bicalutamide [Casodex] 50 mg PO DAILY
Bisacodyl [Dulcolax] 10 mg RECTAL DAILYPRN PRN if MOM is ineffective after 24 hrs
Budesonide [Pulmicort] 0.5 mg INH R BID
Cefepime HCl [Maxipime] 1,000 mg IV Q8H
Dexamethasone Sod Phosphate [Decadron] 6 mg IV Q12H
Dextrose 50%-Water [Dextrose 50% Syringe] 12.5 grams IV [id number] PRN
Divalproex Delayed Rel. 12 Hr [Depakote (12 Hr Release)] 500 mg PO BID
Glucagon [GlucaGen] 1 mg IM PRN PRN
Ipratropium/Albuterol Sulfate [Duoneb] 3 ml INH R BID
Ipratropium/Albuterol Sulfate [Duoneb] 3 ml INH R Q4HPRN PRN shortness of breath
Magnesium Hydroxide [Milk of Magnesia] 30 ml PO DAILYPRN PRN constipation
Metoprolol Xl [Toprol Xl] 25 mg PO DAILY
Nirmatrelvir/Ritonavir [Paxlovid 300-100 mg Dose Pack] 1 each PO BID
Pantoprazole [Protonix] 40 mg PO BID
VANCOMYCIN Pharmacy to Dose [VANCOCIN Pharmacy to Dose] 1 each Pharmacy To Prepare [Call Pharmacy To Prepare] 0 ml IV PER PROTOCOL
fluticasone propionate 2 spray NASAL DAILY
06/21/25 13:18
Add On- LAB Routine
Tests Added?: CHF BNP
ABG [Arterial Blood Gas] Routine
%Oxygen/Room Air: 2L
Bedside Glucose Monitoring As Directed
Frequency: AC&HS
Additional Instructions:: Change to q6h if pt on TPN, tube feeding or not eating
Bipap [RESP] Routine
Patient to use own unit?: No
Inspiratory Pressure (cm H2O): 15
Expiratory Pressure (cm H2O): 5
Speech Therapy Eval & Treat Routine
DX Deep Vein Thrombosis Video Routine
06/21/25 16:30
Insulin Aspart Corrective Low [Novolog Flexpen-Low Resistance] See Protocol SC AC
06/21/25 18:00
Enoxaparin Sodium [Lovenox] 40 mg SC QPM
06/21/25 22:00
Atorvastatin [Lipitor] 20 mg PO HS
06/22/25 06:00
ECG [Electrocardiogram (*1)] IN AM
Reason for Study: QTc Monitoring
Other Reason for Exam: IV haldol administration
Glycohemoglobin (HgbA1c) IN AM
06/22/25 08:00
Amlodipine [Norvasc] 5 mg PO DAILY
Aspirin Chewable [Low Strength Aspirin] 81 mg PO DAILY
Cholecalciferol (Vitamin D3) [VITAMIN D3 (cholecalciferol)] 50 mcg PO DAILY
Furosemide [Lasix] 40 mg PO DAILY
Potassium Chloride [KCl] 30 meq PO DAILY
Sertraline HCl [Zoloft] 100 mg PO DAILY
cyanocobalamin (vitamin B-12) [Vitamin B-12] 1,000 mcg PO DAILY
06/23/25 06:00
ECG [Electrocardiogram (*1)] IN AM
Reason for Study: QTc Monitoring
Other Reason for Exam: IV haldol administration
06/23/25 11:00
DC Protocol for Telemetry ONCE
Abnormal Lab Results
06/21/25 06/21/25 06/21/25
09:09 09:42 11:14
RBC 4.45 L 10^6/uL
(4.70-6.10)
Hgb 10.0 L g/dL
(13.0-18.0)
Hct 35.5 L %
(39.0-52.0)
MCV 79.8 L fL
(80.0-94.0)
MCH 22.5 L pg
(27.0-31.0)
MCHC 28.2 L g/dL
(33.0-37.0)
RDW 16.4 H %
(11.5-14.5)
MPV 10.8 H fL
(7.4-10.4)
Absolute Lymphs (auto) 1.1 L 10^3/uL
(1.2-3.4)
Absolute Monos (auto) 0.8 H 10^3/uL
(0.1-0.6)
Lymphocytes % 15.2 L %
(20.5-51.1)
Monocytes % 10.8 H %
(1.7-9.3)
VBG pCO2 64 H mmHg
(35-48)
VBG pO2 190 H mmHg
(30-50)
VBG HCO3 42.5 H mmol/L
(22-27)
Chloride 95 L mmol/L
(98-107)
Carbon Dioxide 41 H mmol/L
(22-30)
BUN 22 H mg/dl
(9-20)
Glucose 107 H mg/dl
(70-99)
Urine Ketones 1+ A
(Negative)
Ur Occult Blood Reflex 4+ A
(Negative)
Leukocyte Esterase Rfl 1+ A
(Negative)
Urine RBC 40-50 A /HPF
(0-2)
Urine Bacteria (Reflex) Few A
(Negative)
Urine Albumin (Reflex) 2+ A
(Neg - Trace)
SARS-CoV-2 Antigen Positive A
(Negative)
06/21/25 09:09
06/21/25 09:09
Vital Signs
Initial and Last Documented VS:
Initial Vital Signs
Pulse Resp
84 28
06/21/25 08:32 06/21/25 08:32
Last Documented Vital Signs
Temp Pulse Resp BP Pulse Ox
99.6 F 76 25 116/64 98
06/21/25 08:40 06/21/25 13:00 06/21/25 13:00 06/21/25 12:00 06/21/25 13:00
<Vivian Rust PA-C - Last Filed: 06/21/25 13:19>
*Pulse Oximetry
SaO2: 97
Nasal Cannula flow liters per minute: 4
Patient hypoxic: no
*EKG
Interpreted by ED Provider?: Yes
EKG Intrepretation Date: 06/21/25
EKG Intrepretation Time: 11:40
Interpretation: abnormal
Comparison EKG: changes noted
Heart Rate: 84
Rate: normal
Rhythm: sinus
[place]: left axis deviation
Interval: long QT
QRS Pattern: right bundle branch block
Ischemia: other (no acute ischemic changes)
*Critical Care Note
Total Time (30-74mins, 75-104mins- exclusive of procedures): Not Applicable
<Vivian Rust PA-C - Last Filed: 06/21/25 13:19>
Update Note
Update Note:
Patient is a 74-year-old male who presents emergency department from his nursing facility for evaluation of altered mental status. Staff reports that the patient was agitated this morning and more confused than baseline. Patient had a similar
presentation a few weeks ago at which time he was found to have a UTI and also was noted to be hypercapnic. On arrival, patient's vital signs are stable, he is afebrile. On examination, the patient is overall well-appearing, he is malodorous, he
is in no acute distress, he is oriented only to place but has no focal neurological deficits. Labs were obtained and are notable for a CO2 of 21, the remainder the patient's labs are nonactionable. Urinalysis is not convincing for infection. CT
of the head demonstrates no acute intracranial abnormality. COVID-19 is positive, patient is influenza negative. ABG ordered along with BiPAP. Patient will require admission for further treatment of his hypercapnia and COVID-19 infection, likely
causing his altered mental status. Patient signed out to the hospitalist without complication.
Patient is refusing ABG, will obtain VBG. CXR notable for a RLL pneumonia, cefepime and Vancomycin ordered. Patient is becoming agitated, attempting to hit nursing, haloperidol ordered. Hospitalist updated.
ED Attending Note
<Vivian Rust PA-C - Last Filed: 06/21/25 13:19>
-
Portions of this chart may have been created with voice recognition software.� Occasional wrong word or��sound alike� substitutions may have occurred due to the inherent limitations of voice recognition software.
<Robyn Machado DO - Last Filed: 06/21/25 11:10>
ED Attending Note
Patient seen and examined by attending physician: Yes
I performed the substantive portion of visit, reviewed & personally made and approve the management plan that is documented in note by myself or TAPAN.: Yes
I performed a history and physical exam of patient and discussed management with resident, I reviewed resident's note and agree with documented findings and plan of care.: Yes
ED Attending Note:
74-year-old male presents to the ER from his long-term care facility for evaluation of change in behavior-new aggression towards staff. Patient does have a history of dementia but was described by his primary caregiver as being pleasant,
cooperative, and typically oriented to person and place. He in review of the electronic medical record, patient had previously experienced hypercapnic respiratory failure requiring BiPAP while in the hospital. Vital signs reviewed, patient is
awake, alert, appears in no acute distress, mucous membranes tacky, heart regular rate and rhythm without murmurs or ectopy, lungs with coarse rhonchi scattered throughout, abdomen is soft and nontender, extremities without edema, strong odor of
urine to person, GCS is 14 due to confusion. Patient has evidence of hypercapnia due to elevated CO2 level. He is also COVID-positive. BiPAP is ordered. Patient admitted to the hospitalist for further evaluation.
1108: Patient becoming agitated, swinging at staff. 2 mg Haldol ordered. On review of chest x-ray with physician electrician station assistant, appears as though there is a right lower lobe pneumonia also. IV antibiotics ordered blood cultures added. Hospitalist
updated.
Critical care statement: A total of 35 minutes of critical care time was provided for this patient. This includes management of unstable vital signs, evaluation of the patient at bedside, reviewing the patient's pertinent medical records, discussion
with consultants, review of old EKGs and review of pertinent medical records. This time with separate from time utilized to perform the aforementioned documented procedures
Discharge Plan
Departure
Patient Disposition: Admit
Date of Disposition: 06/21/25
Time of Disposition: 10:14
Presentation/result/management discussed w/ accepting MD/DO: Hospitalist
Condition: Good
Covid-19: Confirmed COVID-19
Discharge Problem:
COVID-19, Right lower lobe pneumonia, Acute hypercapnic respiratory failure, Altered mental status, Agitation
Interventions
Interventions:
*Risk Screen - Suicide Last Done: 06/21/25 08:43
*General Assessment Last Done: 06/21/25 09:23
*Neglect/Abuse Screening Last Done: 06/21/25 08:43
*ED- Fall Risk Assessment Last Done: 06/21/25 08:44
*ED COVID-19 Vaccine History Last Done: 06/21/25 08:44
*ED Influenza Vaccine History Last Done: 06/21/25 08:44
ED- Pulmonary Assessment Last Done: 06/21/25 09:14
ED- Neurological Assessment Last Done: 06/21/25 09:14
ED- Cardiac Assessment Last Done: 06/21/25 09:14
ED Swallowing Screen Last Done: 06/21/25 09:14
[2025-06-21 09:36] LABS: Urine Character Clear (Clear)
[2025-06-21 09:39] LABS: Hematocrit 35.5 % (39.0-52.0); Hemoglobin 10.0 g/dL (13.0-18.0); Mean Corp Hgb Conc. 28.2 g/dL (33.0-37.0); Mean Corpuscular Volume 79.8 fL (80.0-94.0); Nucleated Red Blood Cells % 0 % (-); Platelet Count 218 10^3/uL (130-400); Red Cell Dist. Width 16.4 % (11.5-14.5)
[2025-06-21 09:40] LABS: Blood Urea Nitrogen 22 mg/dl (9-20); Calcium 9.0 mg/dl (8.4-10.2); Chloride 95 mmol/L (98-107); Estimated Creatinine Clearance 73 ml/min; Glucose 107 mg/dl (70-99); Potassium 4.1 mmol/L (3.5-5.1); Sodium 141 mmol/L (135-145); eGFR > 60.00
[2025-06-21 09:56] LABS: Carbon Dioxide 41 mmol/L (22-30)
[2025-06-21 10:28] LABS: COVID-19 Antigen Positive (Negative)
[2025-06-21 10:36] LABS: Urine Red Blood Cell 40-50 /HPF (0-2); Urine Urothelial Cell 0-2 /LPF (FEW)
[2025-06-21 10:38] LABS: Anisocytosis 1+; Hypochromasia 1+; Microcytosis 1+; Normal RBC Morphology No; Ovalocytes 1+
--- NOTE | 2025-06-21 10:51 | RESPNOTE ---
pt refused ABG and Bipap at this time stating ' NO,not me'
pt educated on the reason for abg and bipap . still refused
[2025-06-21] MEDS: HALDOL 2 MG IV (11:10)
[2025-06-21 11:38] LABS: Venous Blood Gas B.E. 15.9 mmol/L (-4 to +4); Venous Blood Gas O2 Sat % 99.3 %
[2025-06-21 11:40] LABS: Venous Blood Gas O2 Therapy 4L NC
[2025-06-21] MEDS: MAXIPIME 2000 MG IV (11:49)
[2025-06-21] MEDS: VANCOCIN 540 MG IV (11:54)
--- NOTE | 2025-06-21 12:00 | HPS.HSE ---
Family Physician
-
Family Physician: NOT KNOW UNKNOWN - PT DOES
Chief Complaint
-
Altered mental status
History of Present Illness
Patient is a 74 years old male half-way resident with advanced COPD and chronic hypoxic/hypercarbic respiratory failure presents to the emergency room with altered mental status. Patient has baseline dementia, although noted to be agitated and
incoherent. Was not able to offer any other complaints. Remained afebrile, hemodynamically stable at the nursing facility.
Patient recently admitted and completed course of antibiotics for urinary tract infection.
Emergency room patient recently hearing and occasional agitated.
Additional workup was consistent with new diagnosis of right lower lobe pneumonia. Patient found to be COVID-positive.
Medical History
Past Medical History
Past Medical History: Reports CHF and COPD
Past Surgical History: Reports None
Social History
Unable to obtain full social history at this time due to: Dementia
Family History
Family History: Not pertinent
Allergies / Home Medications
Allergies reflects when Allergies were last updated in [facility].
Home Medications with original date entered in [facility]
Allergy/Medication List:
Allergies
Allergy/AdvReac Type Severity Reaction Status Date / Time
No Known Allergies Allergy Verified 03/16/25 16:19
Home Medications
aspirin 81 mg chewable tablet 81 mg PO DAILY Heart disease/condition 30 days #30 tabs 04/01/22
bicalutamide 50 mg tablet 50 mg PO DAILY Cancer 03/31/23
acetaminophen 325 mg tablet 650 mg PO Q4HPRN PRN mild pain/fever 01/31/24
bisacodyl 10 mg rectal suppository 10 mg SC DAILYPRN PRN if MOM is ineffective after 24 hrs 01/31/24
magnesium hydroxide 400 mg/5 mL oral suspension (Milk of Magnesia) 30 ml PO DAILYPRN PRN constipation 01/31/24
sertraline 50 mg tablet 100 mg PO DAILY Mental Health/Anxiety 01/31/24
atorvastatin 20 mg tablet 20 mg PO HS High Cholesterol 08/08/24
ipratropium 0.5 mg-albuterol 3 mg (2.5 mg base)/3 mL nebulization soln 3 ml inhalation R BID Lung/Breathing Issues 08/09/24
potassium chloride 10 mEq tablet,extended release 30 meq PO DAILY Electrolyte Repletion 11/15/24
budesonide 0.5 mg/2 mL suspension for nebulization 0.5 mg (2 mL) inhalation R BID Lung/breathing issues #60 mL 12/18/24
cyanocobalamin (vitamin B-12) 1,000 mcg tablet (Vitamin B-12) 1,000 mcg PO DAILY Supplement #0 tabs 12/18/24
ipratropium 0.5 mg-albuterol 3 mg (2.5 mg base)/3 mL nebulization soln 3 ml inhalation R Q4HPRN PRN shortness of breath #0 mL 12/18/24
metoprolol succinate 25 mg tablet,extended release 24 hr 25 mg PO DAILY Heart disease/condition #30 tabs 12/18/24
amlodipine 5 mg tablet (Norvasc) 5 mg PO DAILY Blood Pressure 02/23/25
fluticasone propionate 50 mcg/actuation nasal spray,suspension 2 spray intranasal DAILY Congestion 02/23/25
menthol 0.44 %-zinc oxide 20.6 % topical ointment (Moisture Barrier Ointment) 1 applic topical TID BUTTOCK 02/23/25
prednisone 5 mg tablet 5 mg PO MOWEFR COPD 02/23/25
sodium phosphates 19 gram-7 gram/118 mL enema (Fleet Enema) 118 ml SC DAILYPRN PRN if no bm aftr duloclax 03/16/25
divalproex 250 mg tablet,delayed release (Depakote) 500 mg PO BID Seizures 06/03/25
cholecalciferol (vitamin D3) 50 mcg (2,000 unit) tablet 50 mcg PO DAILY Supplement 06/21/25
furosemide 40 mg tablet 40 mg PO DAILY Fluid Retention/Swelling 06/21/25
pantoprazole 40 mg tablet,delayed release (Protonix) 40 mg PO BID Gastrointestinal Issue 06/21/25
Review of Systems
-
Unable to obtain full review of systems at this time due to: Dementia
Physical Exam
Vital Signs
Vital Signs
Temp Pulse Resp BP Pulse Ox
99.6 F 79 25 113/72 97
06/21/25 08:40 06/21/25 11:30 06/21/25 11:30 06/21/25 11:00 06/21/25 11:30
Physical Exam
General: Well Developed, Well Nourished and No Apparent Distress
HEENT: NormoCephalic, Moist mucous membranes and Atraumatic
Respiratory: Clear
Cardiac: S1/S2 and Regular Rhythm; No Murmur or Rub
GI: Soft, Non Tender, Non Distended and Normal Bowel Sounds; No Organomegaly
Rectal: Deferred by Provider
Musculoskeletal: No Clubbing, No Cyanosis and No Edema
Skin: No Rash
Neuro: Other (Lethargic not following commands)
Laboratory Results
-
06/21/25 09:09
06/21/25 09:09
Impression/Plan
-
IMPRESSION:
Acute toxic metabolic encephalopathy secondary to pneumonia and hypoxia/hypercarbia.
Right lower lobe pneumonia
COVID-positive.
Recent hospitalization with Proteus UTI. Completed course of antibiotics
Conditions prior to admission:
Severe COPD Gold stage IV
Chronic hypoxic/hypercarbic respiratory failure on nasal cannula oxygen at 4 L.
Obstructive sleep apnea not compliant with CPAP.
Chronic CHF preserved EF.
CAD with history of LAD stent.
Severe pulmonary hypertension.
Chronic incomplete RBBB.
Prostate cancer on antiandrogen therapy.
Dementia suspect vascular type
Obesity with BMI of 27
PLAN:
Toxic metabolic encephalopathy likely multifactorial in the settings of acute infection and hypercarbia.
Exam: Patient lethargic not following commands, although moves all extremities, reacts to pain.
CT scan of the head with no acute abnormalities.
Continue monitoring while treating below.
Aspiration precautions.
Acute on chronic hypoxic/hypercarbic respiratory failure.
Chest x-ray with new right lower lobe pneumonia.
COVID-positive.
Check ABG (VBG in the ED consistent with CO2 retention)
Speech and swallow evaluation.
N.p.o. while on stable respiratory status.
Empiric antibiotics vancomycin/cefepime pending MRSA screen and blood cultures
Start Paxlovid
Corticosteroids Decadron 6 mg IV every 12 hours. Current exam with no bronchospasm. Would consider to wean down to 6 mg every 24 hours in a.m.
Continue nebulizers
Chronic CHF preserved EF
Echo 12/21 LVEF 60-65%. Mild LVH. Mild MR. Mild TR. Pulmonary artery pressure 65 mmHg
CAD with remote PCI
ECG with no ischemia
Continue preadmission regimen including Norvasc atorvastatin, metoprolol, Lasix
Chronic normocytic anemia baseline heme positive stool.
Follow hemoglobin.
Currently no indication for invasive evaluation close
Dementia suspect vascular type.
Presented with TME as above.
Status post single dose of Haldol in ED.
If continues to agitated would consider Seroquel.
Continue Depakote.
Continue Zoloft
Prostate carcinoma per
Continue antiandrogen therapy
CODE STATUS full code
Attempted contact POA over the phone with no response on 06/21
DVT prophylaxis Lovenox
--- NOTE | 2025-06-21 13:46 | PTCARENOTE ---
Pt is confused & agitated. Pt received Zyprexa in the ER and that had calmed the pt down. Attempted to call his first point of contact, Camila, but no answer. Awaiting a call back so I can complete his admission.
--- NOTE | 2025-06-21 14:08 | PHA.VAN.IN ---
Assessment
- Assessment
Renal Function: Appears similar to baseline
Concomitant Antimicrobials: cefepime, nirmaltrelvir/ritonavir
AUC Dosing Plan
- Dosing Variables
Dosing Weight (kg): 86.5
Dosing CrCl (ml/min): 73
Vd coefficient (L/kg): 0.7
- Empiric Dosing
Initial / Loading Dose: 2000mg - 06/21 11:54
Maintenance Regimen: Vanc 1000mg Q12H starting 06/22 0600
Estimated AUC (mcg*h/mL): 525
Estimated Peak (mcg*h/mL): 30.5
Estimated Trough (mcg/ml): 14.9
Estimated Half Life (H): 10.7
- Monitoring
No levels ordered at this time: consider levels in next few days
MRSA Screen: Ordered per protocol
Pharmacokinetics Vancomycin I
- -
Patient Age: 74
Patient Sex: Male
Vancomycin Day #: 1
Indication: Pulmonary/Respiratory
Requesting Provider: Dr. Rock
Pertinent Antimicrobial Allergies:
NKDA
Height / Weight:
Height 5 ft 10 in
Actual Weight 86.5 kg
Pertinent Past Medical History: COPD (home O2), COVID
- Vital Signs / Lab Results
Temp Pulse Resp BP Pulse Ox
97.3 F 80 20 143/74 98
06/21/25 13:55 06/21/25 13:55 06/21/25 13:55 06/21/25 13:55 06/21/25 13:55
Lab Results - Hematology
06/21/25
09:09
WBC 6.9
Lab Results - Chemistry
06/21/25
09:09
BUN 22 H
Creatinine 0.9
Estimated Creat Clear 73
Lab Results - Urine
06/21/25
09:09
Urine Nitrite (Reflex) Negative
Leukocyte Esterase Rfl 1+ A
Urine WBC (Reflex) 3-5
Ur Squamous Epith Cells 6-10
Urine Bacteria (Reflex) Few A
Microbiology Results
06/21/25 09:42 Influenza Types A & B (NICOLE) - Final
Nasal Swab Negative for Influenza A & B, NAAT
Negative results must be combined with clinical observations
and patient history.
Nucleic Acid Amplification test (NAAT)performed on the
[employer] NOW platform.
[2025-06-21] MEDS: DUONEB 3 ML INH ×2 (14:36→19:38)
[2025-06-21] MEDS: PULMICORT 0.5 MG INH ×2 (14:36→19:38)
[2025-06-21] MEDS: CASODEX PO (14:40)
[2025-06-21] MEDS: PAXLOVID PO ×2 (14:41→20:57)
[2025-06-21] MEDS: DEPAKOTE (12 HR RELEASE) PO ×2 (14:41→20:57)
[2025-06-21] MEDS: PROTONIX PO ×2 (14:42→20:57)
[2025-06-21] MEDS: TOPROL XL PO (14:42)
[2025-06-21 14:49] LABS: B.E. 14.9 mmol/L; O2 Saturation % 100.0 % (94-98); PO2 271 mmHg (83-108)
[2025-06-21 14:51] LABS: HCO3 45.0 mmol/L (21-28); PCO2 105 mmHg (35-48)
--- NOTE | 2025-06-21 14:51 | PTCARENOTE ---
Speech saw the pt and told me that the pt was very drowsy and unable to stay alert. They are recommending strict NPO with no water or meds.
--- NOTE | 2025-06-21 15:49 | W.PN.UPDATE ---
Update Note
Progress Note Update
Patient remains lethargic
Follow-up ABG: pH 7.2/105/271 on 4 L of nasal cannula O2
Continue BiPAP
IMU
Avoid oversedation (status post single dose of Haldol for agitation in ED)
Goals of care discussed with patient's sister Camila over the phone. She is next of kin. According to her patient and family would not pursue any heroic measures including CPR or invasive ventilation.
CODE STATUS changed to DNR.
[2025-06-21] MEDS: DECADRON 6 MG IV (16:02)
[2025-06-21] MEDS: LOVENOX 40 MG SC (17:53)
[2025-06-21] MEDS: MAXIPIME 1000 MG IV (17:55)
[2025-06-21] MEDS: STERILE WATER FOR INJECTION 10 ML IV (17:55)
--- NOTE | 2025-06-21 18:32 | PTCARENOTE ---
Pt received from 4th floor as upgrade. Bipap in place and RT present during transfer. Sats maintaining mid 90's on 15 with 4L. Bed alarm in place for safety. Call thompson within reach.
--- NOTE | 2025-06-21 20:50 | PTCARENOTE ---
manager money, pt restful, SR HR 60s, Sat 94% on Bipap, inc urine- condom cath applied, bed alarm on, care ongoing.
[2025-06-21 22:17] LABS: Glucose - Point of Care 111 mg/dl (70-99)
[2025-06-22] VITALS (13 sets, daily range): BP systolic 101–140; BP diastolic 52–118; PULSE 57; BMI 26.7
[2025-06-22] MEDS: STERILE WATER FOR INJECTION 10 ML IV ×2 (00:03→06:32)
[2025-06-22] MEDS: MAXIPIME 1000 MG IV ×2 (00:03→06:32)
[2025-06-22] MEDS: DECADRON 6 MG IV (02:08)
[2025-06-22 05:06] LABS: Hematocrit 31.2 % (39.0-52.0); Hemoglobin 9.0 g/dL (13.0-18.0); Mean Corp Hgb Conc. 28.8 g/dL (33.0-37.0); Mean Corpuscular Volume 77.2 fL (80.0-94.0); Platelet Count 199 10^3/uL (130-400); Red Cell Dist. Width 16.1 % (11.5-14.5)
[2025-06-22 05:18] LABS: Blood Urea Nitrogen 25 mg/dl (9-20); Calcium 9.0 mg/dl (8.4-10.2); Chloride 99 mmol/L (98-107); Estimated Creatinine Clearance 94 ml/min; Glucose 113 mg/dl (70-99); Potassium 4.4 mmol/L (3.5-5.1); Sodium 141 mmol/L (135-145); eGFR > 60.00
[2025-06-22 05:29] LABS: Carbon Dioxide 38 mmol/L (22-30)
[2025-06-22 05:58] LABS: Glucose - Point of Care 176 mg/dl (70-99)
[2025-06-22] MEDS: VANCOCIN 200 IV ×2 (06:32→18:06)
[2025-06-22] MEDS: DUONEB 3 ML INH ×2 (07:10→21:06)
[2025-06-22] MEDS: PULMICORT 0.5 MG INH ×2 (07:10→21:06)
[2025-06-22] MEDS: KCL PO (07:34)
[2025-06-22] MEDS: LASIX PO (07:34)
[2025-06-22] MEDS: DEPAKOTE (12 HR RELEASE) PO (07:34)
[2025-06-22] MEDS: CASODEX PO (07:34)
[2025-06-22] MEDS: ZOLOFT PO (07:35)
[2025-06-22] MEDS: VITAMIN D3 (cholecalciferol) PO (07:35)
[2025-06-22] MEDS: PAXLOVID PO (07:35)
[2025-06-22] MEDS: NORVASC PO (07:35)
[2025-06-22] MEDS: TOPROL XL PO (07:35)
[2025-06-22] MEDS: PROTONIX PO (07:35)
[2025-06-22] MEDS: LOW STRENGTH ASPIRIN PO (07:35)
[2025-06-22] MEDS: VITAMIN B-12 PO (07:35)
--- NOTE | 2025-06-22 07:59 | PHA.VAN.FU ---
Vancomycin Assessment / Plan
- Assessment
Renal Function: Stable
WBC's are: WNL
In the past 24 hrs, patient has been: Afebrile
Concomitant Antimicrobials: cefepime, nirmaltrevir/ritonavir
- Dosing Plan
Continue: vancomycin 1000 mg Q12H
- Monitoring Plan
No level(s) ordered at this time: consider levels in next few days
- Follow Up
Pharmacy will continue to follow.
Vancomycin Follow UP
- -
Patient Age: 74
Patient Sex: Male
Vancomycin Day #: 2
Indication: Pulmonary/Respiratory
Requesting Provider: Dr. Rock
Pertinent Antimicrobial Allergies:
NKDA
Height / Weight:
Height 5 ft 10 in
Actual Weight 84.4 kg
Pertinent Past Medical History: COPD (home O2), COVID
- Vital Signs / Lab Results
Temp Pulse Resp BP Pulse Ox
97.2 F 57 18 108/59 100
06/22/25 07:00 06/22/25 07:16 06/22/25 07:16 06/22/25 06:00 06/22/25 07:16
Lab Results - Hematology
06/21/25 06/22/25
09:09 04:29
WBC 6.9 4.8
Lab Results - Chemistry
06/21/25 06/22/25
09:09 04:29
BUN 22 H 25 H
Creatinine 0.9 0.7
Estimated Creat Clear 73 94
Lab Results - Urine
06/21/25
09:09
Urine Nitrite (Reflex) Negative
Leukocyte Esterase Rfl 1+ A
Ur Squamous Epith Cells 6-10
Microbiology Results
06/21/25 09:42 Influenza Types A & B (NICOLE) - Final
Nasal Swab Negative for Influenza A & B, NAAT
Negative results must be combined with clinical observations
and patient history.
Nucleic Acid Amplification test (NAAT)performed on the
[employer] platform.
[2025-06-22 08:06] LABS: Glucose - Point of Care 146 mg/dl (70-99)
[2025-06-22 09:40] LABS: Glycohemoglobin (HgbA1c) 5.3 % (4.0-5.9)
[2025-06-22 10:30] LABS: Venous Blood Gas B.E. 18.0 mmol/L (-4 to +4); Venous Blood Gas O2 Sat % 99.6 %
[2025-06-22 12:18] LABS: Glucose - Point of Care 125 mg/dl (70-99)
--- NOTE | 2025-06-22 12:27 | PTOTSP ---
Speech Therapy Evaluation
Pt at an increased risk of aspiration given history of dementia (consistent with frontotemporal based on Head CT), CHD, severe COPD, compromised respiratory system, and oxygen dependency (4 LPM O2 at home). Pt with current diagnosis of right lower
lobe PNA and is COVID 19 +, which elevates the risk of aspiration. Pt managed regular solids and thin liquids with adequate mastication, ap transit, and adequate clearance. No overt s/sx of aspiration, no breath changes, no wet vocal quality.
Respiratory rate and SaO2 remained stable during PO trials.�WBC WNL.
Recommend:
1. IDDSI 7 Regular solids and thin liquids
2. Meds as best tolerated
3. General aspiration precautions
4. Partial supervision with meals given acute change in mental status
5. PRODUCT SAFETY OFFICER to sign off. Reconsult if concerned for aspiration or if worsening in chest imaging/respiratory status
--- NOTE | 2025-06-22 12:51 | W.PN.HOSP.TC ---
Today's Communication/Plan
-
Monitor vitals
See plan
BiPAP while sleeping or at bedtime
Continue with nasal cannula while awake
Diet per speech
Continue with antibiotic
Decrease Decadron given periods of psychosis
Psychiatry evaluation
Continue with Paxlovid
Discussed with sister
Assessment / Plan
Assessment / Plan
General: Well Developed, Well Nourished, on NC
HEENT: NormoCephalic, Moist mucous membranes and Atraumatic
Respiratory: Clear, rhonchi
Cardiac: S1/S2 and Regular Rhythm; No Murmur or Rub
GI: Soft, Non Tender, Non Distended and Normal Bowel Sounds
Musculoskeletal: No Edema
Neuro: AAOx2-3
Acute toxic metabolic encephalopathy secondary to pneumonia and hypoxia/hypercarbia.
Right lower lobe pneumonia
COVID-positive.
Recent hospitalization with Proteus UTI. Completed course of antibiotics
Conditions prior to admission:
Severe COPD Gold stage IV
Chronic hypoxic/hypercarbic respiratory failure on nasal cannula oxygen at 4 L.
Obstructive sleep apnea not compliant with CPAP.
Chronic CHF preserved EF.
CAD with history of LAD stent.
Severe pulmonary hypertension.
Chronic incomplete RBBB.
Prostate cancer on antiandrogen therapy.
Dementia suspect vascular type
Obesity with BMI of 27
PLAN:
Toxic metabolic encephalopathy likely multifactorial in the settings of acute infection and hypercarbia. Appears does have some degree of chronic hypercapnia. Was on BiPAP on admission. Trialing him off 06/22. Blood gas with pH 7.24, pCO2 105 on
06/21, 06/22 improving with pH 7.4, pCO2 59
Now mental status improving, evaluated by speech and recommended regular diet.
CT scan of the head with no acute abnormalities.
Continue monitoring while treating below.
Aspiration precautions.
Acute on chronic hypoxic/hypercarbic respiratory failure.
Chest x-ray with new right lower lobe pneumonia.
COVID-positive.
Was on BiPAP on admission. Trialing him off 06/22. Blood gas with pH 7.24, pCO2 105 on 06/21, 06/22 improving with pH 7.4, pCO2 59. Pulmonary evaluation
Now mental status improving, evaluated by speech and recommended regular diet.
Empiric antibiotics vancomycin/Zosyn pending MRSA screen and blood cultures
Start Paxlovid
Corticosteroids Decadron 6 mg IV every 12 hours.
Continue nebulizers
Chronic CHF preserved EF
Echo 12/21 LVEF 60-65%. Mild LVH. Mild MR. Mild TR. Pulmonary artery pressure 65 mmHg
CAD with remote PCI
ECG with no ischemia
Continue preadmission regimen including Norvasc atorvastatin, metoprolol, Lasix
Chronic normocytic anemia baseline heme positive stool.
Follow hemoglobin.
Currently no indication for invasive evaluation close
Dementia suspect vascular type.
Presented with TME as above. Monitor while also on IV steroid
Haldol for now, psychiatry evaluation
Continue Depakote.
Continue Zoloft
Prostate carcinoma
Continue antiandrogen therapy
CODE STATUS DNR
DVT prophylaxis Lovenox
Patient stays at [facility]. Has dementia per sister.
I spent a total of 54 minutes with the patient or on the floor. More than 50% of this time involved counseling and coordination of care.
Anticipated Discharge: > 48 hours
Subjective/Interval History
-
Date of Service: June 22, 2025
Denies chest pain
Objective Data
-
Labs:
Laboratory Results
06/22/25
04:29
WBC 4.8
Hgb 9.0 L
Hct 31.2 L
Plt Count 199
Sodium 141
Potassium 4.4
Chloride 99
Carbon Dioxide 38 H
BUN 25 H
Creatinine 0.7
Glucose 113 H
Calcium 9.0
Vital Signs:
Vital Signs
Temp Pulse Resp BP Pulse Ox
98.1 F 67 19 118/63 91
06/22/25 11:00 06/22/25 10:00 06/22/25 10:00 06/22/25 10:00 06/22/25 11:05
I&O
06/21/25 06/22/25 06/23/25
06:59 06:59 06:59
Intake Total 350 / 350
Output Total 200 / 200 300 / 300
Balance -200 / -200 50 / 50
[2025-06-22] MEDS: STERILE WATER FOR INJECTION IV ×2 (13:02→13:07)
[2025-06-22] MEDS: MAXIPIME IV ×2 (13:02→13:07)
--- NOTE | 2025-06-22 13:08 | PTCARENOTE ---
Pt's assessment as documented. Transitioned off bipap and sats in the low 90's on 4L NC. Aox1, becoming increasingly agitated and paranoid throughout the day. Refusing IV medications and swinging at this RN. Dr. Patel notified.
--- NOTE | 2025-06-22 14:38 | CON.PUL ---
Consultation
Consultation Request
Date/Time Consultation Requested: 06/22/2025 - 1313
Date/Time Consultation Performed: 06/22/2025 - 1404
Requesting Provider: Dr. Patel
Performing Provider: Dr. Cunningham
Reason for Consultation: Acute hypoxia/hypercapnia; COVID-19
Medical History
-
Chief Complaint: Change in mental status
History of Present Illness:
74-year-old male with a past medical history of COPD, chronic respiratory failure with hypoxia + hypercapnia, current cigarette use, hypertension, history of cellulitis, history of VT, chronic systolic heart failure, chronic supplemental oxygen use,
and history of prostate cancer who presents with acute agitation and altered mental status. In triage, he was very malodorous with his depends saturated with urine. CT head showed no evidence of a acute intracranial abnormality. CXR showed patchy
parenchymal opacification within the right lower lobe, concerning for pneumonia. Also increased interstitial markings in the left lower lobe, suspicious for an interstitial pneumonia/pneumonitis. Blood cultures collected, urine cultures collected,
flu swab was negative and he was found to be COVID-19 antigen positive. Given Haldol in the ER in addition to Vanco/cefepime. Initially, BiPAP was come to be placed onto the patient but he refused; he also initially refused blood gas. He
ultimately was placed onto BiPAP 15/5 blood with 4 L/min. He was transferred to the IMU and now pulmonary service consulted for additional management/recommendations.
Past Medical History
Past Medical History: Other (See assessment)
Past Surgical History: Other (See assessment)
Social History
Tobacco: Non-smoker
Alcohol: None
Drug: None
Family History
Family History: Reviewed & Not Pertinent
Allergies / Home Medications
Allergies
Allergy/AdvReac Type Severity Reaction Status Date / Time
No Known Allergies Allergy Verified 03/16/25 16:19
Home Medications
�Medication �Instructions �Recorded �Confirmed �Last Taken �Type
aspirin 81 mg chewable tablet 81 mg PO DAILY Heart 04/01/22 06/21/2525 Rx
disease/condition 30 days #30 tabs
bicalutamide 50 mg tablet 50 mg PO DAILY Cancer 03/31/23 06/21/25 06/20/25 History
acetaminophen 325 mg tablet 650 mg PO Q4HPRN PRN mild 01/31/24 06/21/25 11/10/24 History
pain/fever
bisacodyl 10 mg rectal suppository 10 mg AK DAILYPRN PRN if MOM is 01/31/24 06/21/25 Unknown History
ineffective after 24 hrs
magnesium hydroxide 400 mg/5 mL 30 ml PO DAILYPRN PRN constipation 01/31/24 06/21/25 Unknown History
oral suspension (Milk of Magnesia)
sertraline 50 mg tablet 100 mg PO DAILY Mental 01/31/24 06/21/25 06/20/25 History
Health/Anxiety
atorvastatin 20 mg tablet 20 mg PO HS High Cholesterol 08/08/24 06/21/25 06/20/25 History
ipratropium 0.5 mg-albuterol 3 mg 3 ml inhalation R BID 08/09/24 06/21/25 06/21/25 History
(2.5 mg base)/3 mL nebulization Lung/Breathing Issues
soln
potassium chloride 10 mEq 30 meq PO DAILY Electrolyte 11/15/24 06/21/25 06/20/25 History
tablet,extended release Repletion
budesonide 0.5 mg/2 mL suspension 0.5 mg (2 mL) inhalation R BID 12/18/24 06/21/25 06/20/25 Rx
for nebulization Lung/breathing issues #60 mL
cyanocobalamin (vitamin B-12) 1,000 mcg PO DAILY Supplement #0 12/18/24 06/21/25 06/20/25 Rx
1,000 mcg tablet (Vitamin B-12) tabs
ipratropium 0.5 mg-albuterol 3 mg 3 ml inhalation R Q4HPRN PRN 12/18/24 06/21/25 06/20/25 Rx
(2.5 mg base)/3 mL nebulization shortness of breath #0 mL
soln
metoprolol succinate 25 mg 25 mg PO DAILY Heart 12/18/24 06/21/25 06/20/25 Rx
tablet,extended release 24 hr disease/condition #30 tabs
amlodipine 5 mg tablet (Norvasc) 5 mg PO DAILY Blood Pressure 02/23/25 06/21/25 06/20/25 History
fluticasone propionate 50 2 spray intranasal DAILY Congestion 02/23/25 06/21/25 06/20/25 History
mcg/actuation nasal
spray,suspension
menthol 0.44 %-zinc oxide 20.6 % 1 applic topical TID BUTTOCK 02/23/25 06/21/25 06/02/25 History
topical ointment (Moisture Barrier
Ointment)
prednisone 5 mg tablet 5 mg PO MOWEFR COPD 02/23/25 06/21/25 06/20/25 History
sodium phosphates 19 gram-7 118 ml AK DAILYPRN PRN if no bm 03/16/25 06/21/25 Unknown History
gram/118 mL enema (Fleet Enema) aftr duloclax
divalproex 250 mg tablet,delayed 500 mg PO BID Seizures 06/03/25 06/21/25 06/20/25 History
release (Depakote)
cholecalciferol (vitamin D3) 50 50 mcg PO DAILY Supplement 06/21/25 06/21/25 06/20/25 History
mcg (2,000 unit) tablet
furosemide 40 mg tablet 40 mg PO DAILY Fluid 06/21/25 06/21/25 06/20/25 History
Retention/Swelling
pantoprazole 40 mg tablet,delayed 40 mg PO BID Gastrointestinal Issue 06/21/25 06/21/25 06/20/25 History
release (Protonix)
Review of Systems
-
Unable to Obtain full review of systems at this time due to: Acuity
Vitals / Labs / Diagnostic Testing
Vital Signs
Temp Pulse Resp BP Pulse Ox
97.7 F 120 24 131/97 92
06/22/25 15:00 06/22/25 18:45 06/22/25 18:45 06/22/25 18:00 06/22/25 11:45
Lab Data
06/22/25 04:29
06/22/25 04:29
Microbiology
06/21/25 09:00 Blood/Venous Blood Culture - Preliminary
No Growth in 24 hours- Final report to follow
06/21/25 11:24 Blood/Venous Blood Culture - Preliminary
No Growth in 24 hours- Final report to follow
06/21/25 09:09 Urine Urine Culture - Final
NO GROWTH
06/21/25 09:42 Nasal Swab Influenza Types A & B (NICOLE) - Final
Negative for Influenza A & B, NAAT
Negative results must be combined with clinical observations
and patient history.
Nucleic Acid Amplification test (NAAT)performed on the
[employer] platform.
Diagnostic Testing:
Physical Exam
-
HEENT: Normocephalic and Anicteric
Cardiovascular: S1/S2 and Peripheral Edema (negative)
Respiratory: Wheeze (negative), Rales (negative) and Rhonchi (Bilaterally)
GI: Soft, Non Distended, Non Tender and Normal Bowel Sounds
Neurology: Awake and Tremors (negative)
Skin: Warm and Dry
General: Respiratory Distress (negative), Comfortable, Fever (negative) and Chills (negative)
Assessment
-
Assessment: 74-year-old male with a past medical history of COPD, chronic respiratory failure with hypoxia + hypercapnia, current cigarette use, hypertension, history of cellulitis, history of VT, chronic systolic heart failure, chronic
supplemental oxygen use, and history of prostate cancer who presents with acute agitation and altered mental status. In triage, he was very malodorous with his depends saturated with urine. CT head showed no evidence of a acute intracranial
abnormality. CXR showed patchy parenchymal opacification within the right lower lobe, concerning for pneumonia. Also increased interstitial markings in the left lower lobe, suspicious for an interstitial pneumonia/pneumonitis. Blood cultures
collected, urine cultures collected, flu swab was negative and he was found to be COVID-19 antigen positive. Given Haldol in the ER in addition to Vanco/cefepime. Initially, BiPAP was come to be placed onto the patient but he refused; he also
initially refused blood gas. He ultimately was placed onto BiPAP 15/5 blood with 4 L/min. He was transferred to the IMU and now pulmonary service consulted for additional management/recommendations.
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
Coronary disease with history of LAD stent and elevated filling pressures per catheterization December 2021
Noncompliance, refusal of treatment
Severe COPD/emphysema, GOLD IV
FEV1 30%
Follows with Dr. Marte in OP last seen 06/2024 - Saw Delmy MARADIAGA.
Regimen: Pulmicort twice a day/DuoNebs 3-4 times a day/albuterol HFA as needed.
Declined low-dose radiation screening-has not followed through. Most recent CT chest in the hospital 08/15/2024: No lung nodules.
Chronic hypoxemia, on 2-4L/Poor compliance with oxygen.
Severe pulm hypertension, PA pressure 70-likely due to chronic hypercapnic respiratory failure/advanced COPD; repeat echo 12/13/2024 showed PASP of 65 with normal RV size/function
Echocardiogram 08/09/2024: LVEF 55%. Mild LVH. Dilated right ventricular with low normal RV systolic function. Estimated pulmonary pressure 65-70 mmHg.
Suspect RICARDO/OHS, never had sleep study/declined testing
He declined PAP therapy 06/2024
Prostate cancer
Incomplete right bundle branch block
Overweight BMI 26
Prot mirabilis UTI
History of lower extremity cellulitis
Former smoker: Quit at least 2-1/2 years ago. 40+ pack year history
Impression:
#Acute on chronic hypoxic/hypercapnic respiratory failure now requiring continuous BiPAP
#Right lower lobe pneumonia
#Acute COVID-19
#COPD exacerbation due to RLL pneumonia (?aspiration) in the setting of acute COVID-19
#Abnormal urinalysis with +1 leukocyte esterase concerning for UTI (his UA findings are actually improved compared to recent UA on 06/04/2025 when UCx grew Proteus)
#Dementia with AMS likely due to septic encephalopathy + CO2 narcosis
Plan:
- I personally reviewed his CXR, and there was clearly increased opacification at the right base more so compared to recent CXR performed on 06/03/2025
- Continue Vanco/Zosyn
- Follow-up cultures (Blood Cx X2) + urine Cx; collect sputum culture if decent sample can be obtained
- Continue with BiPAP while trending blood gas to assure pH + pCO2 remained stable
- Alternate between BiPAP and supplemental oxygen, keeping SpO2 88-95% given his history of COPD
- Recommend to use BiPAP with sleep and during the day with naps
- Aspiration precautions, keeping HOB >30-45�
- While on BiPAP, do not allow to eat
- Continue DuoNebs BID + budesonide
- prn nebulized bronchodilators - not currently bronchospastic
- Continue Decadron 6 mg IV q24hrs
- Paxlovid
- Airborne + droplet precautions
- Continue home dose of Lasix; monitor I/O
- proBNP was 14,100; he may need IV diuresis; reassess daily for adjustment in his diuretic regimen
- Given his agitation/anxiety, psychiatry has been consulted; recs appreciated
- Maintain MAP>65
- Replete electrolytes with K>4, Mg>2
- Maintain euglycemia with goal BG 140-180
- Trend H/H and transfuse if needed to keep Hb>7g/dL; keep plt>20k, unless there is concern for bleeding then keep plt>50k
- If patient were to be cooperative, then would encouraged use of incentive spirometer 10x per hour for at least 4 hrs a day
- DVT ppx
Code status: DNR/DNI
Pulmonary service will continue to follow along
Data:
CXR 06/21/2025:
Patchy parenchymal opacity within the right lower lung, mainly within the right lower lobe, which likely represents pneumonia.
Increased interstitial markings within the left lower lung, which is likely interstitial-type pneumonia.
No evidence for significant associated pleural effusion.
Cardiomegaly.
Total time spent today was 82 minutes for this encounter. Time includes reviewing laboratory test/imaging results, reviewing pertinent medical records, obtaining and reviewing medical history, performing an appropriate exam, ordering medications,
tests and procedures. Time also includes documentation of this encounter, coordinating patient care and communicating with other healthcare professionals. Total time does not include separately billed tests performed on this date of service.
--- NOTE | 2025-06-22 15:49 | PTCARENOTE ---
Pt paranoid and refusing MRSA swab at this time.
--- NOTE | 2025-06-22 16:18 | CS.PSYCHR ---
Consult Summary - Psychiatry
-
patient seen by me on 06/22/2025 from 2:40pm-2:55pm
Psychiaty consult for management of agitation in context of delirium and dementia. 74 years [facility] male [facility] resident with advanced COPD and chronic hypoxic/hypercarbic respiratory failure admitted on 06/21 with altered mental status, found to
be COVID + with RLL PNA. Patient has baseline dementia, although noted to be more agitated and incoherent. On exam he is sitting in his chair, trying to make the remote work. He states we are in [facility] at the [facility]. When asked the year,
he repeatedly tried to tell me when he hospital was founded. He does know Anat is president. He is confused and tangential throughout interview.
Currently has order for haldol 1mg IV q6 hours PRN agitation.
06/21/2025 qtc 515
PMH-
Severe COPD Gold stage IV
Chronic hypoxic/hypercarbic respiratory failure on nasal cannula oxygen at 4 L.
Obstructive sleep apnea not compliant with CPAP.
Chronic CHF preserved EF.
CAD with history of LAD stent.
Severe pulmonary hypertension.
Chronic incomplete RBBB.
Prostate cancer on antiandrogen therapy.
Dementia suspect vascular type
Obesity with BMI of 27
Social history- [facility] patient
Past psych history- prescribed zoloft 100mg daily, depakote 500mg BID though he denies mental health history; psych note from earlier this month indicates a bipolar history
Family history- unable to obtain
D&A- patient denies
A/P- 74yo male with dementia and now delirium likely secondary to infection. Will check depakote level and ammonia. Will stop Haldol PRN given prolonged Qtc and order trial of Valium PRN for overnight to see how patient responds. Will recheck EKG in
AM. Will follow.
--- NOTE | 2025-06-22 16:39 | W.PN.UPDATE ---
Update Note
Progress Note Update
Informed by pharmacy that IV Ativan is back in stock. will stop Valium PRN and switch to Ativan 1mg IV q6 hours PRN severe anxiety/agitation.
[2025-06-22] MEDS: ZOSYN 50 IV ×2 (16:51→21:20)
[2025-06-22 16:54] LABS: Glucose - Point of Care 121 mg/dl (70-99)
[2025-06-22] MEDS: LOVENOX SC ×2 (16:56→18:06)
[2025-06-22] MEDS: NOVOLOG FLEXPEN-LOW RESISTANCE SC (16:57)
[2025-06-22] MEDS: DEPAKOTE (12 HR RELEASE) 500 MG PO (19:45)
[2025-06-22] MEDS: PROTONIX 40 MG PO (19:45)
[2025-06-22] MEDS: PAXLOVID 1 EACH PO (19:50)
[2025-06-22 22:16] LABS: Glucose - Point of Care 123 mg/dl (70-99)
[2025-06-23] VITALS (11 sets, daily range): BP systolic 103–127; BP diastolic 50–103; BMI 27.5
[2025-06-23] MEDS: ZOSYN 50 IV ×4 (04:09→21:28)
--- NOTE | 2025-06-23 05:45 | PTCARENOTE ---
Caring for pt overnight. aaox1, very confused and forgetful. Pleasant until this AM, and then very verbally abusive. Refused AM labs. IV infiltrated L wrist, will reattempt and IV stick & lab work. NSR. Remains 4LNC. Incontinent X2. Pt turning
himself. IVabx. Refused bipap overnight. VSS. Will monitor.
--- NOTE | 2025-06-23 06:36 | PTCARENOTE ---
Pt refusing a new IV and is still refusing morning blood work. Unable to give iv vanco this am.
[2025-06-23] MEDS: DUONEB 3 ML INH ×2 (07:28→19:28)
[2025-06-23] MEDS: PULMICORT 0.5 MG INH ×2 (07:29→19:28)
[2025-06-23] MEDS: NOVOLOG FLEXPEN-LOW RESISTANCE SC ×3 (08:36→17:52)
[2025-06-23 08:46] LABS: Glucose - Point of Care 88 mg/dl (70-99)
--- NOTE | 2025-06-23 09:35 | PTCARENOTE ---
Assumed care of patient this morning. Nightshift RN reports patient refusing BiPAP, labs draws and new IV, therefore morning Vancomycin not given. He is oriented to himself only. Upon first encounter, patient very hesitant about medications, asking
multiple non-pertinent questions and requesting extensive clarification for each one. Following education, patient still refusing medications and then asks similar questions again. Patient appeared suspicious of RN explanations. aware.
Pharmacy also aware patient did not get morning dose of Vancomycin. Patient is easily agitated and uncooperative of care at times. Patient did eat breakfast.
[2025-06-23] MEDS: CASODEX 50 MG PO (10:30)
[2025-06-23] MEDS: ZOLOFT 100 MG PO (10:30)
[2025-06-23] MEDS: TOPROL XL 25 MG PO (10:30)
[2025-06-23] MEDS: LASIX 40 MG PO (10:31)
[2025-06-23] MEDS: PROTONIX 40 MG PO ×2 (10:31→19:26)
[2025-06-23] MEDS: NORVASC 5 MG PO (10:31)
[2025-06-23] MEDS: LOW STRENGTH ASPIRIN 81 MG PO (10:31)
[2025-06-23] MEDS: DEPAKOTE (12 HR RELEASE) 500 MG PO ×2 (10:32→19:26)
[2025-06-23] MEDS: PAXLOVID 1 EACH PO ×2 (10:35→19:32)
[2025-06-23] MEDS: VITAMIN D3 (cholecalciferol) PO (10:41)
[2025-06-23] MEDS: KCL PO (10:41)
[2025-06-23] MEDS: VITAMIN B-12 PO (10:41)
[2025-06-23] MEDS: DECADRON 6 MG IV (10:52)
[2025-06-23] MEDS: VANCOCIN IV (11:23)
--- NOTE | 2025-06-23 11:24 | PTCARENOTE ---
Patient not refusing medications on next encounter following visit from doctor telling patient he should take them. Patient initially having some resistance to wanting to take them but when provided with medicine cup with pills, he did take them. Pt
did refused a couple of vitamins stating 'I don't need those.' Patient subsequently let me take out his nonworking IV and VAT team to bedside to place #24 in his right hand. Labs were barely able to be obtained by VAT through the new IV. Assessment,
care and VS as charted.
[2025-06-23 11:28] LABS: Venous Blood Gas B.E. 18.2 mmol/L (-4 to +4); Venous Blood Gas O2 Sat % 99.6 %
[2025-06-23 11:34] LABS: Hematocrit 29.5 % (39.0-52.0); Hemoglobin 8.6 g/dL (13.0-18.0); Mean Corp Hgb Conc. 29.2 g/dL (33.0-37.0); Mean Corpuscular Volume 76.4 fL (80.0-94.0); Nucleated Red Blood Cells % 0 % (-); Platelet Count 259 10^3/uL (130-400); Red Cell Dist. Width 16.0 % (11.5-14.5)
[2025-06-23 11:42] LABS: Blood Urea Nitrogen 25 mg/dl (9-20); Calcium 8.7 mg/dl (8.4-10.2); Chloride 95 mmol/L (98-107); Estimated Creatinine Clearance 73 ml/min; Glucose 111 mg/dl (70-99); Potassium 3.9 mmol/L (3.5-5.1); Sodium 140 mmol/L (135-145); eGFR > 60.00
[2025-06-23 11:45] LABS: Ammonia < 9 umol/L (9-30)
[2025-06-23 11:49] LABS: Depakane 35.9 ug/ml (50.0-120.0)
[2025-06-23 11:53] LABS: Carbon Dioxide 40 mmol/L (22-30)
--- NOTE | 2025-06-23 12:16 | W.PN.HOSP.TC ---
Today's Communication/Plan
-
Monitor vitals
See plan
Continue with Decadron
Continue Paxlovid, Zosyn
DC further vancomycin
Continue to monitor mental status
BiPAP at bedtime and while taking nap during the day if patient is compliant
Intermittent noncompliance per nursing staff reported
maintain NC
Assessment / Plan
Assessment / Plan
General: Well Developed, Well Nourished, on NC
HEENT: NormoCephalic, Moist mucous membranes and Atraumatic
Respiratory: Clear, rhonchi
Cardiac: S1/S2 and Regular Rhythm; No Murmur or Rub
GI: Soft, Non Tender, Non Distended and Normal Bowel Sounds
Musculoskeletal: No Edema
Neuro: AAOx2-3
Acute toxic metabolic encephalopathy secondary to pneumonia and hypoxia/hypercarbia.
Right lower lobe pneumonia
COVID-positive.
Recent hospitalization with Proteus UTI. Completed course of antibiotics
Conditions prior to admission:
Severe COPD Gold stage IV
Chronic hypoxic/hypercarbic respiratory failure on nasal cannula oxygen at 4 L.
Obstructive sleep apnea not compliant with CPAP.
Chronic CHF preserved EF.
CAD with history of LAD stent.
Severe pulmonary hypertension.
Chronic incomplete RBBB.
Prostate cancer on antiandrogen therapy.
Dementia suspect vascular type
Obesity with BMI of 27
PLAN:
Toxic metabolic encephalopathy likely multifactorial in the settings of acute infection and hypercarbia. Appears does have some degree of chronic hypercapnia. Was on BiPAP on admission. Trialing him off 06/22. Blood gas with pH 7.24, pCO2 105 on
06/21, 06/22 improving with pH 7.4, pCO2 59. 06/23 with pCO2 56. Currently off BiPAP and on nasal cannula.
Now mental status improving, evaluated by speech and recommended regular diet.
CT scan of the head with no acute abnormalities.
Continue monitoring while treating below.
Aspiration precautions.
Acute on chronic hypoxic/hypercarbic respiratory failure.
Chest x-ray with new right lower lobe pneumonia.
COVID-positive.
Was on BiPAP on admission. Trialing him off 06/22. Blood gas with pH 7.24, pCO2 105 on 06/21, 06/22 improving with pH 7.4, pCO2 59. Pulmonary following
Now mental status improving, evaluated by speech and recommended regular diet.
Continue with Zosyn, DC vancomycin given MRSA negative, follow blood culture
Continue Paxlovid
Decrease Decadron to 6 every 24, especially given periods of psychosis
Continue nebulizers
Chronic CHF preserved EF
Echo 12/21 LVEF 60-65%. Mild LVH. Mild MR. Mild TR. Pulmonary artery pressure 65 mmHg
CAD with remote PCI
ECG with no ischemia
Continue preadmission regimen including Norvasc atorvastatin, metoprolol, Lasix
Chronic normocytic anemia baseline heme positive stool.
Follow hemoglobin.
Currently no indication for invasive evaluation close
Dementia suspect vascular type.
Presented with TME as above. Monitor while also on IV steroid
Psychiatry following, on IV Ativan if needed
Continue Depakote.
Continue Zoloft
Prostate carcinoma
Continue antiandrogen therapy
CODE STATUS DNR
DVT prophylaxis Lovenox
Patient stays at [facility]. Has dementia per sister. Patient has been noncompliant with management at times
I spent a total of 52 minutes with the patient or on the floor. More than 50% of this time involved counseling and coordination of care.
Anticipated Discharge: > 48 hours
Subjective/Interval History
-
Date of Service: June 23, 2025
Confused at times, gets agitated
Objective Data
-
Labs:
Laboratory Results
06/23/25 06/23/25
11:09 11:13
WBC 5.5
Hgb 8.6 L
Hct 29.5 L
Plt Count 259 D
Sodium 140
Potassium 3.9
Chloride 95 L
Carbon Dioxide 40 H
BUN 25 H
Creatinine 0.9
Glucose 111 H
Calcium 8.7
Vital Signs:
Vital Signs
Temp Pulse Resp BP Pulse Ox
97.5 F 118 21 108/59 100
06/23/25 07:52 06/23/25 10:31 06/23/25 10:00 06/23/25 10:31 06/23/25 11:42
I&O
06/22/25 06/23/25 06/24/25
06:59 06:59 06:59
Intake Total 350 / 350
Output Total 200 / 200 300 / 300
Balance -200 / -200 50 / 50
[2025-06-23 14:05] LABS: Glucose - Point of Care 116 mg/dl (70-99)
--- NOTE | 2025-06-23 14:22 | W.PN.PUL3 ---
Today's Communication / Plan
-
BiPAP with sleep and during daytime with naps
Diamox
Repeat blood gas tomorrow AM
DuoNebs + budesonide
Decadron 6 mg IV q24hrs
Paxlovid
Supportive care
May need IV diuresis given elevated proBNP; monitor oxygen saturations, work of breathing and physical exam
Psych recs appreciated
Pulmonary service will continue to follow along
Assessment
-
Assessment: 74-year-old male with a past medical history of COPD, chronic respiratory failure with hypoxia + hypercapnia, current cigarette use, hypertension, history of cellulitis, history of VT, chronic systolic heart failure, chronic
supplemental oxygen use, and history of prostate cancer who presents with acute agitation and altered mental status. In triage, he was very malodorous with his depends saturated with urine. CT head showed no evidence of a acute intracranial
abnormality. CXR showed patchy parenchymal opacification within the right lower lobe, concerning for pneumonia. Also increased interstitial markings in the left lower lobe, suspicious for an interstitial pneumonia/pneumonitis. Blood cultures
collected, urine cultures collected, flu swab was negative and he was found to be COVID-19 antigen positive. Given Haldol in the ER in addition to Vanco/cefepime. Initially, BiPAP was come to be placed onto the patient but he refused; he also
initially refused blood gas. He ultimately was placed onto BiPAP 15/5 blood with 4 L/min. He was transferred to the IMU and now pulmonary service consulted for additional management/recommendations.
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
Coronary disease with history of LAD stent and elevated filling pressures per catheterization December 2021
Noncompliance, refusal of treatment
Severe COPD/emphysema, GOLD IV
FEV1 30%
Follows with Dr. Marte in OP last seen 06/2024 - Saw Delmy MARADIAGA.
Regimen: Pulmicort twice a day/DuoNebs 3-4 times a day/albuterol HFA as needed.
Declined low-dose radiation screening-has not followed through. Most recent CT chest in the hospital 08/15/2024: No lung nodules.
Chronic hypoxemia, on 2-4L/Poor compliance with oxygen.
Severe pulm hypertension, PA pressure 70-likely due to chronic hypercapnic respiratory failure/advanced COPD; repeat echo 12/13/2024 showed PASP of 65 with normal RV size/function
Echocardiogram 08/09/2024: LVEF 55%. Mild LVH. Dilated right ventricular with low normal RV systolic function. Estimated pulmonary pressure 65-70 mmHg.
Suspect RICARDO/OHS, never had sleep study/declined testing
He declined PAP therapy 06/2024
Prostate cancer
Incomplete right bundle branch block
Overweight BMI 26
Prot mirabilis UTI
History of lower extremity cellulitis
Former smoker: Quit at least 2-1/2 years ago. 40+ pack year history
Impression:
#Acute on chronic hypoxic/hypercapnic respiratory failure requiring continuous BiPAP
#Right lower lobe pneumonia
#Acute COVID-19
#COPD exacerbation due to RLL pneumonia (?aspiration) in the setting of acute COVID-19
#Abnormal urinalysis with +1 leukocyte esterase concerning for UTI (his UA findings are actually improved compared to recent UA on 06/04/2025 when UCx grew Proteus)
#Dementia with AMS likely due to septic encephalopathy + CO2 narcosis
Plan:
- I personally reviewed his CXR, and there was clearly increased opacification at the right base more so compared to recent CXR performed on 06/03/2025
- Continue Zosyn, s/p Vanco (MRSA swab negative)
- Follow-up cultures (Blood Cx X 2) + urine Cx; collect sputum culture if decent sample can be obtained
- Continue with BiPAP while trending blood gas to assure pH + pCO2 remained stable
- Alternate between BiPAP and supplemental oxygen, keeping SpO2 88-95% given his history of COPD
- Recommend to use BiPAP with sleep and during the day with naps
- Aspiration precautions, keeping HOB >30-45�
- While on BiPAP, do not allow to eat
- Continue DuoNebs BID + budesonide
- prn nebulized bronchodilators - not currently bronchospastic
- Given his metabolic alkalosis seen on blood gas, will give dose of Diamox and repeat blood gas tomorrow AM
- Continue Decadron 6 mg IV q24hrs
- Paxlovid
- Airborne + droplet precautions
- Continue home dose of Lasix; monitor I/O
- proBNP was 14,100; he may need IV diuresis; reassess daily for adjustment in his diuretic regimen
- Given his agitation/anxiety, psychiatry has been consulted; recs appreciated
- Maintain MAP>65
- Replete electrolytes with K>4, Mg>2
- Maintain euglycemia with goal BG 140-180
- Trend H/H and transfuse if needed to keep Hb>7g/dL; keep plt>20k, unless there is concern for bleeding then keep plt>50k
- If patient were to be cooperative, then would encouraged use of incentive spirometer 10x per hour for at least 4 hrs a day
- DVT ppx
Code status: DNR/DNI
Pulmonary service will continue to follow along
Data:
CXR 06/21/2025:
Patchy parenchymal opacity within the right lower lung, mainly within the right lower lobe, which likely represents pneumonia.
Increased interstitial markings within the left lower lung, which is likely interstitial-type pneumonia.
No evidence for significant associated pleural effusion.
Cardiomegaly.
Total time spent today was 41 minutes for this encounter. Time includes reviewing laboratory test/imaging results, reviewing pertinent medical records, obtaining and reviewing medical history, performing an appropriate exam, ordering medications,
tests and procedures. Time also includes documentation of this encounter, coordinating patient care and communicating with other healthcare professionals. Total time does not include separately billed tests performed on this date of service.
Subjective Data
-
Date of Service:
Date of Service: June 23, 2025
Chief Complaint: Pulmonary Follow Up
Subjective:
Patient seen today (late note entry). Afebrile overnight. Currently saturating 98% on 2 L/min nasal cannula. Calmer today. Did not wear his BiPAP overnight.
Review of Systems
General: Other (Negative unless mentioned above)
Objective Data
Data Reviewed
Vital Signs / I&O / Oxygen:
Vital Signs
Temp Pulse Resp BP Pulse Ox
98.3 F 60 14 114/65 98
06/22/25 22:54 06/23/25 07:36 06/23/25 07:36 06/23/25 06:00 06/23/25 07:36
Intake and Output
06/22/25 06/23/25 06/24/25
06:59 06:59 06:59
Intake Total 350 / 350
Output Total 200 / 200 300 / 300
Balance -200 / -200 50 / 50
SaO2 98
Nasal Cannula flow liters per 4
minute
Physical Exam
General: Respiratory Distress (n) and Comfortable
HEENT: Normocephalic and Anicteric
Cardiovascular: S1-S2 and Peripheral Edema (n)
Respiratory: Wheeze (n), Crackles (n), Rhonchi (Bilateral) and Non-Labored Respirations
GI: Soft, Non Distended, Non Tender and Normal Bowel Sounds
Neurology: Awake and Tremors (n)
Skin: Warm, Dry and Cyanosis (n)
Labs/Micro/Reports
Microbiology
06/21/25 09:00 Blood/Venous Blood Culture - Preliminary
No Growth in 24 hours- Final report to follow
06/21/25 11:24 Blood/Venous Blood Culture - Preliminary
No Growth in 24 hours- Final report to follow
06/21/25 09:09 Urine Urine Culture - Final
NO GROWTH
06/21/25 09:42 Nasal Swab Influenza Types A & B (NICOLE) - Final
Negative for Influenza A & B, NAAT
Negative results must be combined with clinical observations
and patient history.
Nucleic Acid Amplification test (NAAT)performed on the
[employer] platform.
[2025-06-23] MEDS: LOVENOX 40 MG SC (17:48)
[2025-06-23 18:02] LABS: Glucose - Point of Care 129 mg/dl (70-99)
--- NOTE | 2025-06-23 20:00 | PTCARENOTE ---
Resumed care of pt sitting up in bed, Pt AAOx1, Pt just finished dinner and requesting more food. Jello provided, pt continues to be agitated about food selection. Complete bed bath provided, selwyn care complete. Face washed. New linens now in place.
HR in the 50's in SB with prolonged QT on the monitor. POX 97% on 3LO2 NC. + bowel, round obese abd. Inc bowel, bladder. Palpable peripheral pulses present. Red/brown RLE. Right wrist INT in place. Bed alarm in place. Pt positioned per comfort. Call
thompson in reach. Will continue to monitor.
[2025-06-23 22:47] LABS: Glucose - Point of Care 202 mg/dl (70-99)
[2025-06-24] VITALS (13 sets, daily range): BP systolic 93–127; BP diastolic 38–73; PULSE 59; O2SAT 94; BMI 27.2
[2025-06-24] MEDS: ZOSYN 50 IV ×4 (03:17→23:00)
[2025-06-24 04:00] LABS: Hematocrit 26.8 % (39.0-52.0); Hemoglobin 7.8 g/dL (13.0-18.0); Mean Corp Hgb Conc. 29.1 g/dL (33.0-37.0); Mean Corpuscular Volume 75.5 fL (80.0-94.0); Nucleated Red Blood Cells % 0 % (-); Platelet Count 270 10^3/uL (130-400); Red Cell Dist. Width 16.0 % (11.5-14.5)
[2025-06-24 04:23] LABS: Blood Urea Nitrogen 31 mg/dl (9-20); Calcium 8.2 mg/dl (8.4-10.2); Chloride 92 mmol/L (98-107); Estimated Creatinine Clearance 55 ml/min; Glucose 119 mg/dl (70-99); Potassium 4.1 mmol/L (3.5-5.1); Sodium 136 mmol/L (135-145); eGFR > 60.00
[2025-06-24 04:34] LABS: Carbon Dioxide 43 mmol/L (22-30)
[2025-06-24 07:28] LABS: Glucose - Point of Care 124 mg/dl (70-99)
[2025-06-24] MEDS: NOVOLOG FLEXPEN-LOW RESISTANCE SC ×2 (07:41→17:19)
[2025-06-24] MEDS: DUONEB 3 ML INH (08:00)
[2025-06-24] MEDS: PULMICORT 0.5 MG INH (08:00)
[2025-06-24] MEDS: DECADRON 6 MG IV (09:23)
[2025-06-24] MEDS: PAXLOVID 1 EACH PO ×2 (09:23→22:59)
[2025-06-24] MEDS: VITAMIN B-12 1000 MCG PO (09:24)
[2025-06-24] MEDS: DEPAKOTE (12 HR RELEASE) 500 MG PO ×2 (09:24→19:34)
[2025-06-24] MEDS: NORVASC 5 MG PO (09:24)
[2025-06-24] MEDS: LOW STRENGTH ASPIRIN 81 MG PO (09:24)
[2025-06-24] MEDS: ZOLOFT 100 MG PO (09:25)
[2025-06-24] MEDS: VITAMIN D3 (cholecalciferol) 50 MCG PO (09:25)
[2025-06-24] MEDS: KCL 30 MEQ PO (09:25)
[2025-06-24] MEDS: LASIX 40 MG PO (09:25)
[2025-06-24] MEDS: CASODEX 50 MG PO (09:26)
[2025-06-24] MEDS: PROTONIX 40 MG PO ×2 (09:26→19:34)
[2025-06-24] MEDS: TOPROL XL 25 MG PO (09:26)
--- NOTE | 2025-06-24 10:07 | PN.CDI ---
CDI
- -
CDI:
Physician Documentation Request
Admit Date: 06/21/25 12:42
Dear Doctor Pranav,
Clinical Indicators:
Patient admitted with toxic metabolic encephalopathy with right lower lobe PNA; COVID positive.
CXR, 'Patchy parenchymal opacity within the right lower lung, mainly within the right lower lobe, which likely represents pneumonia.Increased interstitial markings within the left lower lung, which is likely interstitial-type pneumonia.'
Pulmonary consult,'...RLL pneumonia (?aspiration) in the setting of acute COVID-19'
Treatment: Paxlovid, Zosyn
Based on the above, could you clarify in the Progress Notes further specificity regarding the known, suspected or likely type of pneumonia you are treating (recognizing the specific organism may not be known)?
Examples
Viral Pneumonia due COVID
Viral Pneumonia due to COVID with superimposed aspiration pneumonia
Pneumonia, other (please specify known or suspected type)
Other, (please specify)
Use of terms such as suspected, likely, concern for, or probable (associated with a specific diagnosis that is being evaluated, monitored, or treated as if it exists) are acceptable and can be coded in the inpatient setting, when documented at the
time of discharge.
Thank you,
KRIS Lora RN
CDI Specialist
available via tiger text
Please use your independent medical judgment in providing your response.
--- NOTE | 2025-06-24 10:46 | VATNOTE ---
Called bedside to start new PIV by primary RN.
Procedure explained, per pt. 'I will zacarias you and everyone at this hospital' This was followed by explicit insults to which this RN asked if he would like the PIV to receive his treatment regiment to which he stated 'No'.
Stated to patient if he changed his mind would be more than happy to come back and place PIV.
Primary RN updated.
--- NOTE | 2025-06-24 11:00 | PTCARENOTE ---
Patient's IV stopped working while Zosyn was infusing. About half of bag infused. Patient refusing to get another IV at this time. made aware.
[2025-06-24 11:04] LABS: B.E. 19.7 mmol/L; O2 Saturation % 94.4 % (94-98); PCO2 58 mmHg (35-48); PO2 65 mmHg (83-108)
[2025-06-24 11:19] LABS: HCO3 45.2 mmol/L (21-28)
[2025-06-24 11:58] LABS: Glucose - Point of Care 156 mg/dl (70-99)
[2025-06-24] MEDS: NOVOLOG FLEXPEN-LOW RESISTANCE 1 UNITS SC (13:21)
--- NOTE | 2025-06-24 14:20 | W.PN.HOSP.TC ---
Today's Communication/Plan
-
Encourage BiPAP use while asleep
Check lower extremity Doppler
Continue oral Lasix
Continue antibiotics/Zosyn
Continue Paxlovid
Assessment / Plan
Assessment / Plan
Impression
Acute toxic metabolic encephalopathy secondary to pneumonia and hypoxia/hypercarbia.
Right lower lobe pneumonia
COVID-positive.
Recent hospitalization with Proteus UTI. Completed course of antibiotics
Conditions prior to admission:
Severe COPD Gold stage IV
Chronic hypoxic/hypercarbic respiratory failure on nasal cannula oxygen at 4 L.
Obstructive sleep apnea not compliant with CPAP.
Chronic CHF preserved EF.
CAD with history of LAD stent.
Severe pulmonary hypertension.
Chronic incomplete RBBB.
Prostate cancer on antiandrogen therapy.
Dementia suspect vascular type
Obesity with BMI of 27
PLAN:
Toxic metabolic encephalopathy likely multifactorial in the settings of acute infection and hypercarbia. Appears does have some degree of chronic hypercapnia. Was on BiPAP on admission. Trialing him off 06/22. Blood gas with
Respiratory acidosis improved.
tion: pH 7.50/58/65
Now mental status improving, evaluated by speech and recommended regular diet.
CT scan of the head with no acute abnormalities.
Continue monitoring while treating below.
Aspiration precautions.
Acute on chronic hypoxic/hypercarbic respiratory failure.
Chest x-ray with new right lower lobe pneumonia.
COVID-positive.
Continue with Zosyn, DC vancomycin given MRSA negative.
Blood cultures negative to date
Overall respiratory status improved
Follow-up ABG on 06/24 with reasonable compensation
Continue Paxlovid
Continue Decadron at 60 mg IV daily
Continue nebulizers
Chronic CHF preserved EF
Echo 12/21 LVEF 60-65%. Mild LVH. Mild MR. Mild TR. Pulmonary artery pressure 65 mmHg
CAD with remote PCI
ECG with no ischemia
Noted elevated pro CHF BNP off baseline at 14K, although with no evidence of volume overload
Continue oral Lasix monitoring creatinine
Continue preadmission regimen including Norvasc atorvastatin, metoprolol
Chronic normocytic anemia baseline heme positive stool.
Follow hemoglobin.
Currently no indication for invasive evaluation close
Dementia suspect vascular type.
Presented with TME as above. Monitor while also on IV steroid
Psychiatry following, on IV Ativan if needed
Continue Depakote.
Continue Zoloft
Prostate carcinoma
Continue antiandrogen therapy
CODE STATUS DNR
DVT prophylaxis Lovenox
Anticipated Discharge: 24 - 48 hours
Subjective/Interval History
-
Date of Service: June 24, 2025
Objective Data
-
Labs:
Laboratory Results
06/24/25 06/24/25
03:25 10:48
WBC 3.9 L
Hgb 7.8 L
Hct 26.8 L
Plt Count 270
HCO3 45.2 H*
Sodium 136
Potassium 4.1
Chloride 92 L
Carbon Dioxide 43 H
BUN 31 H
Creatinine 1.2
Glucose 119 H
Calcium 8.2 L
Vital Signs:
Vital Signs
Temp Pulse Resp BP Pulse Ox
98.2 F 53 19 97/57 91
06/24/25 07:47 06/24/25 12:00 06/24/25 12:00 06/24/25 12:00 06/24/25 13:39
I&O
06/23/25 06/24/25 06/25/25
06:59 06:59 06:59
Intake Total 350 / 350 820 / 820
Output Total 300 / 300
Balance 50 / 50 820 / 820
Physical Exam
-
General: Other (Historian. )
HEENT: Moist Mucous Membranes
Respiratory: Clear to Auscultation and Other (4 L nasal cannula )
Cardiac: Regular Rhythm and S1/S2
GI: Nontender and Nondistended
Genito-urinary: No Costovertebral Tender
Musculoskeletal: No Cyanosis and No Edema
Neuro: Awake, Alert and Other (irritable, and non cooperative. )
Hematologic / Lymphatic: No Lymphadenopathy
Psych: Agitated
--- NOTE | 2025-06-24 14:56 | PTOTSP ---
Pt is able to transfer and appears to be at his baseline. He is not interested in PT. Anticipate pt returning to LTC facility when medically stable. PT will sign off.
--- NOTE | 2025-06-24 14:59 | W.PN.PUL3 ---
Today's Communication / Plan
-
- Encouraged BiPAP, patient refuses
- Titrate O2 to keep saturation above 90%
- Follow-up chest x-ray in 48 hours to ensure right pleural effusion is not enlarging
- Check procalcitonin in a.m.
Assessment
-
Assessment: 74-year-old male with a past medical history of COPD, chronic respiratory failure with hypoxia + hypercapnia, current cigarette use, hypertension, history of cellulitis, history of VT, chronic systolic heart failure, chronic
supplemental oxygen use, and history of prostate cancer who presents with acute agitation and altered mental status. In triage, he was very malodorous with his depends saturated with urine. CT head showed no evidence of a acute intracranial
abnormality. CXR showed patchy parenchymal opacification within the right lower lobe, concerning for pneumonia. Also increased interstitial markings in the left lower lobe, suspicious for an interstitial pneumonia/pneumonitis. Blood cultures
collected, urine cultures collected, flu swab was negative and he was found to be COVID-19 antigen positive. Given Haldol in the ER in addition to Vanco/cefepime. Initially, BiPAP was come to be placed onto the patient but he refused; he also
initially refused blood gas. He ultimately was placed onto BiPAP 15/5 blood with 4 L/min. He was transferred to the IMU and now pulmonary service consulted for additional management/recommendations.
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
Coronary disease with history of LAD stent and elevated filling pressures per catheterization December 2021
Noncompliance, refusal of treatment
Severe COPD/emphysema, GOLD IV
FEV1 30%
Follows with Dr. Marte in OP last seen 06/2024 - Saw Delmy MARADIAGA.
Regimen: Pulmicort twice a day/DuoNebs 3-4 times a day/albuterol HFA as needed.
Declined low-dose radiation screening-has not followed through. Most recent CT chest in the hospital 08/15/2024: No lung nodules.
Chronic hypoxemia, on 2-4L/Poor compliance with oxygen.
Severe pulm hypertension, PA pressure 70-likely due to chronic hypercapnic respiratory failure/advanced COPD; repeat echo 12/13/2024 showed PASP of 65 with normal RV size/function
Echocardiogram 08/09/2024: LVEF 55%. Mild LVH. Dilated right ventricular with low normal RV systolic function. Estimated pulmonary pressure 65-70 mmHg.
Suspect RICARDO/OHS, never had sleep study/declined testing
He declined PAP therapy 06/2024
Prostate cancer
Incomplete right bundle branch block
Overweight BMI 26
Prot mirabilis UTI
History of lower extremity cellulitis
Former smoker: Quit at least 2-1/2 years ago. 40+ pack year history
Assessment and plan
#1. Acute on chronic hypoxic/hypercapnic respiratory failure
- Suspect more recent decompensation is related to acute COVID-19 and pneumonia.
- Continue supplemental oxygen. Continue to offer BiPAP, patient however refuses intermittently
#2. Acute metabolic encephalopathy due to hypercapnia
- Responded well to BiPAP. pCO2 improved, currently compensated hypercapnia noted on follow-up VBG
- Patient however not compliant with BiPAP, at risk of CO2 retention
- Patient might have underlying sleep disordered breathing, refused sleep study in past.
#3. Acute COVID-19 with RLL pneumonia and trace effusion
- Suspect trace parapneumonic effusion, currently too small for a safe thoracentesis
- Continue antibiotics as ordered, follow-up imaging in 48 hours to ensure effusion is not enlarging. Might need thoracentesis depending upon clinical course
- Check procalcitonin level in a.m. to help guide duration of antibiotic therapy. Bacterial coinfection with COVID-19 tends to be less frequent
- MRSA screen negative. With prior antibiotic use for UTI, agree with continuing Zosyn for now.
- Continue Paxlovid and dexamethasone
#4. COPD exacerbation due to RLL pneumonia (?aspiration) in the setting of acute COVID-19
- Continue dexamethasone as ordered, continue albuterol and nebulized budesonide
- No wheezing this morning.
- Nightly BiPAP if patient agreeable
- Baseline severe underlying COPD/emphysema
#5. Pulmonary HTN
- Suspect primarily group III with advanced COPD, hypercapnia and hypoxia, also likely group II with elevated BNP and volume overload
#6. Acute on chronic HFpEF
- Continue p.o. Lasix. Mild vascular congestion noted on chest x-ray
- Blood pressure borderline, hold off further uptitration of diuretics.
Code status: DNR/DNI
Pulmonary service will continue to follow along
Data:
CXR 06/21/2025:
Patchy parenchymal opacity within the right lower lung, mainly within the right lower lobe, which likely represents pneumonia.
Increased interstitial markings within the left lower lung, which is likely interstitial-type pneumonia.
No evidence for significant associated pleural effusion.
Cardiomegaly.
ECHO 11/2024:
Normal left ventricular size and systolic function. No regional wall motion
abnormalities are seen. LV ejection fraction is 60-65% by visual assessment.
Mild concentric left ventricular hypertrophy.
Normal right ventricular size. Normal right ventricular systolic function.
Mild mitral regurgitation.
Mild tricuspid regurgitation. Estimated pulmonary artery pressure of 65 mmHg.
Assuming a right atrial pressure of 3 mmHg.
Total time spent today was 38 minutes for this encounter. Time includes reviewing laboratory test/imaging results, reviewing pertinent medical records, obtaining and reviewing medical history, performing an appropriate exam, ordering medications,
tests and procedures. Time also includes documentation of this encounter, coordinating patient care and communicating with other healthcare professionals. Total time does not include separately billed tests performed on this date of service.
Subjective Data
-
Date of Service:
Date of Service: June 24, 2025
Chief Complaint: Pulmonary Follow Up
Subjective:
Patient comfortably lying in bed in no acute distress.
Review of Systems
Genitourinary: Other (All 14 systems reviewed and negative except as stated above in the history of present illness.)
Objective Data
Data Reviewed
Vital Signs / I&O / Oxygen:
Vital Signs
Temp Pulse Resp BP Pulse Ox
99.2 F 53 19 97/57 91
06/24/25 11:20 06/24/25 12:00 06/24/25 12:00 06/24/25 12:00 06/24/25 13:39
Intake and Output
06/23/25 06/24/25 06/25/25
06:59 06:59 06:59
Intake Total 350 / 350 820 / 820
Output Total 300 / 300
Balance 50 / 50 820 / 820
SaO2 91
Nasal Cannula flow liters per 4
minute
Physical Exam
General: Respiratory Distress (n) and Comfortable
HEENT: Normocephalic and Anicteric
Cardiovascular: S1-S2 and Peripheral Edema (n)
Respiratory: Wheeze (n), Crackles (n), Rhonchi (Minimal rhonchi) and Non-Labored Respirations
GI: Soft, Non Distended, Non Tender and Normal Bowel Sounds
Neurology: Awake and Tremors (n)
Skin: Warm, Dry and Cyanosis (n)
Labs/Micro/Reports
Lab Data
06/24/25 03:25
06/24/25 03:25
Laboratory Results
06/24/25
10:48
pH 7.50 H
pCO2 58 H
pO2 65 L
HCO3 45.2 H*
O2 Delivery Level Not Reportable
Microbiology
06/21/25 09:00 Blood/Venous Blood Culture - Preliminary
No Growth in 72 hours- Final report to follow
06/21/25 11:24 Blood/Venous Blood Culture - Preliminary
No Growth in 72 hours- Final report to follow
06/21/25 Unknown Nose Nasal Screen MRSA (PCR) - Final
MRSA not detected - performed by PCR methodology.
06/21/25 09:09 Urine Urine Culture - Final
NO GROWTH
--- NOTE | 2025-06-24 16:26 | CM ---
Initial Assessment Completed by DAVID Burr. Patient is from [facility] as a LTC resident with MA bed-hold. Patient is able to ambulate short distances with use of a WW and stand-by assist, transfers with stand-by assist. Patient is mostly
in his W/C which he self propels for longer distances. He is a 1 person assist for all personal care tasks, able to feed self. Patient is on 2L O2 continuous, he has an order for a BIPAP which he refuses almost every night.
PCP- Adam Leiva
Rx- [facility]
Return SNF referral sent via [facility]. Sister/Camila with update, she is very involved in pt's care
Discharge Disposition- return to [facility] for LTC
[2025-06-24] MEDS: LOVENOX 40 MG SC (17:10)
[2025-06-24 17:26] LABS: Glucose - Point of Care 130 mg/dl (70-99)
[2025-06-24] MEDS: PULMICORT INH (20:19)
[2025-06-24] MEDS: ATIVAN 1 MG IV (20:58)
[2025-06-24] MEDS: NSS (PRESERVATIVE FREE) 0.5 ML IV (20:58)
--- NOTE | 2025-06-24 21:55 | PTCARENOTE ---
patient came from IMU via bed. while attempting to pull pt over to other bed, pt was being uncooperative. unable to reorient patient. per IMU RN, PRN IV Ativan given at 2057. pt attempting to throw himself over the side of the bed, pushing at staff
and yelling at staff. pt repeatedly attempting to ge out of bed and kick and punch staff. pt placed in 4 point restrains with 4 side rails for safety. ASHWINI austin notified, and order obtained. bed alarm in place. tele monitor number 7 placed.
pt sinus swathi with PVC. call thompson within reach. POC ongoing.
[2025-06-24 23:11] LABS: Glucose - Point of Care 128 mg/dl (70-99)
[2025-06-25 04:00] VITALS: BP 103/71
[2025-06-25] MEDS: ZOSYN 50 IV ×2 (04:04→10:02)
--- NOTE | 2025-06-25 04:24 | PTCARENOTE ---
restraints removed at 0400. pt calm and cooperative. bed alarm and call thompson in place. POC ongoing.
[2025-06-25 06:00] VITALS: BMI 27.4
[2025-06-25 07:05] LABS: Procalcitonin < 0.05 ng/ml (0.0-0.25)
[2025-06-25 07:07] VITALS: BP 128/53
[2025-06-25 07:51] LABS: Glucose - Point of Care 124 mg/dl (70-99)
[2025-06-25] MEDS: FLOVENT 110 MCG INHALER 2 PUFF INH (07:54)
[2025-06-25] MEDS: NOVOLOG FLEXPEN-LOW RESISTANCE SC ×3 (08:04→19:22)
[2025-06-25] MEDS: VITAMIN B-12 1000 MCG PO (09:16)
[2025-06-25] MEDS: PROTONIX 40 MG PO ×2 (09:16→21:12)
[2025-06-25] MEDS: KCL PO ×2 (09:16→13:56)
[2025-06-25] MEDS: ZOLOFT 100 MG PO (09:16)
[2025-06-25] MEDS: NORVASC PO ×2 (09:17→13:56)
[2025-06-25] MEDS: DEPAKOTE (12 HR RELEASE) 500 MG PO ×2 (09:17→21:12)
[2025-06-25] MEDS: TOPROL XL PO ×2 (09:17→13:57)
[2025-06-25] MEDS: CASODEX 50 MG PO (09:18)
[2025-06-25] MEDS: VITAMIN D3 (cholecalciferol) 50 MCG PO (09:18)
[2025-06-25] MEDS: LOW STRENGTH ASPIRIN 81 MG PO (09:18)
[2025-06-25] MEDS: LASIX 40 MG PO (09:18)
[2025-06-25] MEDS: DECADRON 6 MG IV (09:19)
[2025-06-25] MEDS: PAXLOVID 1 EACH PO ×2 (09:49→21:12)
[2025-06-25 10:29] VITALS: BP 131/67
--- NOTE | 2025-06-25 10:49 | CM ---
PT indicates return to [facility]
Referral placed for [facility] with bed hold.
Will need ambulance.
[facility]
report [phone]
fax [phone]
PLAN To [facility]
--- NOTE | 2025-06-25 11:11 | W.PN.UPDATE ---
Update Note
Progress Note Update
patient seen chart reviewed. spoke with nursing. nursing reports patient is variously cooperative. she asked if i could get him to imbibe the kimberlyn yoli with potassium which i tried to do however unsuccessfully despite several tries. he was not
agitated or angry ...just would not drink. he seemed to me to be a little sleepy. he is currently taking depakote 500 mg bid level is 35 (there is room to increase if he becomes agitated again) as well as zoloft 100 mg daily he has had one prn
of ativan. qtc 475 would continue as currently psych will sign off please call us if you need us to see him again.
--- NOTE | 2025-06-25 12:20 | W.PN.PUL3 ---
Today's Communication / Plan
-
- Procalcitonin unremarkable, discontinue IV Zosyn
- PT/OT eval, discharge planning
- Patient continues to refuse BiPAP
- Follow-up chest x-ray in a.m.
Assessment
-
Assessment: 74-year-old male with a past medical history of COPD, chronic respiratory failure with hypoxia + hypercapnia, current cigarette use, hypertension, history of cellulitis, history of VT, chronic systolic heart failure, chronic
supplemental oxygen use, and history of prostate cancer who presents with acute agitation and altered mental status. In triage, he was very malodorous with his depends saturated with urine. CT head showed no evidence of a acute intracranial
abnormality. CXR showed patchy parenchymal opacification within the right lower lobe, concerning for pneumonia. Also increased interstitial markings in the left lower lobe, suspicious for an interstitial pneumonia/pneumonitis. Blood cultures
collected, urine cultures collected, flu swab was negative and he was found to be COVID-19 antigen positive. Given Haldol in the ER in addition to Vanco/cefepime. Initially, BiPAP was come to be placed onto the patient but he refused; he also
initially refused blood gas. He ultimately was placed onto BiPAP 15/5 blood with 4 L/min. He was transferred to the IMU and now pulmonary service consulted for additional management/recommendations.
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
Coronary disease with history of LAD stent and elevated filling pressures per catheterization December 2021
Noncompliance, refusal of treatment
Severe COPD/emphysema, GOLD IV
FEV1 30%
Follows with Dr. Marte in OP last seen 06/2024 - Saw Delmy MARADIAGA.
Regimen: Pulmicort twice a day/DuoNebs 3-4 times a day/albuterol HFA as needed.
Declined low-dose radiation screening-has not followed through. Most recent CT chest in the hospital 08/15/2024: No lung nodules.
Chronic hypoxemia, on 2-4L/Poor compliance with oxygen.
Severe pulm hypertension, PA pressure 70-likely due to chronic hypercapnic respiratory failure/advanced COPD; repeat echo 12/13/2024 showed PASP of 65 with normal RV size/function
Echocardiogram 08/09/2024: LVEF 55%. Mild LVH. Dilated right ventricular with low normal RV systolic function. Estimated pulmonary pressure 65-70 mmHg.
Suspect RICARDO/OHS, never had sleep study/declined testing
He declined PAP therapy 06/2024
Prostate cancer
Incomplete right bundle branch block
Overweight BMI 26
Prot mirabilis UTI
History of lower extremity cellulitis
Former smoker: Quit at least 2-1/2 years ago. 40+ pack year history
Assessment and plan
#1. Acute on chronic hypoxic/hypercapnic respiratory failure
- Suspect more recent decompensation is related to acute COVID-19 and pneumonia.
- Continue supplemental oxygen. Continue to offer BiPAP, patient however been refusing for last 3 night. Unfortunately at risk of CO2 retention and encephalopathy
#2. Acute metabolic encephalopathy due to hypercapnia
- Responded well to BiPAP. pCO2 improved, currently compensated hypercapnia noted on follow-up VBG
- Patient however not compliant with BiPAP, at risk of CO2 retention
- Patient might have underlying sleep disordered breathing, refused sleep study in past.
#3. Acute COVID-19 with RLL pneumonia and trace effusion
- Suspect trace parapneumonic effusion, currently too small for a safe thoracentesis
- Normal procalcitonin, d/c antibiotics. Bacterial coinfection with COVID-19 tends to be less frequent
- MRSA screen negative
- Continue Paxlovid and dexamethasone
- F/u CXR in AM
#4. COPD exacerbation due to RLL pneumonia (?aspiration) in the setting of acute COVID-19
- Continue dexamethasone as ordered, continue albuterol and nebulized budesonide
- No wheezing this morning.
- Nightly BiPAP if patient agreeable
- Baseline severe underlying COPD/emphysema
#5. Pulmonary HTN
- Suspect primarily group III with advanced COPD, hypercapnia and hypoxia, also likely group II with elevated BNP and volume overload
#6. Acute on chronic HFpEF
- Continue p.o. Lasix. Mild vascular congestion noted on chest x-ray
- Blood pressure borderline, hold off further uptitration of diuretics.
- F/u CXR in AM.
Code status: DNR/DNI
Pulmonary service will continue to follow along
Data:
CXR 06/21/2025:
Patchy parenchymal opacity within the right lower lung, mainly within the right lower lobe, which likely represents pneumonia.
Increased interstitial markings within the left lower lung, which is likely interstitial-type pneumonia.
No evidence for significant associated pleural effusion.
Cardiomegaly.
ECHO 11/2024:
Normal left ventricular size and systolic function. No regional wall motion
abnormalities are seen. LV ejection fraction is 60-65% by visual assessment.
Mild concentric left ventricular hypertrophy.
Normal right ventricular size. Normal right ventricular systolic function.
Mild mitral regurgitation.
Mild tricuspid regurgitation. Estimated pulmonary artery pressure of 65 mmHg.
Assuming a right atrial pressure of 3 mmHg.
Total time spent today was 36 minutes for this encounter. Time includes reviewing laboratory test/imaging results, reviewing pertinent medical records, obtaining and reviewing medical history, performing an appropriate exam, ordering medications,
tests and procedures. Time also includes documentation of this encounter, coordinating patient care and communicating with other healthcare professionals. Total time does not include separately billed tests performed on this date of service.
Subjective Data
-
Date of Service:
Date of Service: June 25, 2025
Chief Complaint: Pulmonary Follow Up
Subjective:
Patient comfortably lying down in no acute distress. Currently on 1 L supplemental oxygen
Review of Systems
Genitourinary: Other (All 14 systems reviewed and negative except as stated above in the history of present illness.)
Objective Data
Data Reviewed
Vital Signs / I&O / Oxygen:
Vital Signs
Temp Pulse Resp BP Pulse Ox
97.6 F 50 16 131/67 97
06/25/25 10:29 06/25/25 11:25 06/25/25 11:25 06/25/25 10:29 06/25/25 11:26
Intake and Output
06/24/25 06/25/25 06/26/25
06:59 06:59 06:59
Intake Total 820 / 820
Balance 820 / 820
SaO2 97
Nasal Cannula flow liters per 2
minute
Physical Exam
General: Respiratory Distress (n) and Comfortable
HEENT: Normocephalic and Anicteric
Cardiovascular: S1-S2 and Peripheral Edema (n)
Respiratory: Wheeze (n), Crackles (n), Rhonchi (Minimal rhonchi) and Non-Labored Respirations
GI: Soft, Non Distended, Non Tender and Normal Bowel Sounds
Neurology: Awake and Tremors (n)
Skin: Warm, Dry and Cyanosis (n)
Labs/Micro/Reports
Lab Data
06/24/25 03:25
06/24/25 03:25
Microbiology
06/21/25 09:00 Blood/Venous Blood Culture - Preliminary
No Growth in 4 days- Final report to follow
06/21/25 11:24 Blood/Venous Blood Culture - Preliminary
No Growth in 4 days- Final report to follow
06/21/25 Unknown Nose Nasal Screen MRSA (PCR) - Final
MRSA not detected - performed by PCR methodology.
06/21/25 09:09 Urine Urine Culture - Final
NO GROWTH
[2025-06-25 13:15] LABS: Glucose - Point of Care 129 mg/dl (70-99)
--- NOTE | 2025-06-25 13:40 | W.PN.HOSP.TC ---
Today's Communication/Plan
-
Completed course of corticosteroids and antibiotics
Completing course of Paxlovid
Unfortunately refusing BiPAP and remains at high risk for worsening of hypercarbic respiratory failure
Assessment / Plan
Assessment / Plan
Impression
Acute toxic metabolic encephalopathy secondary to pneumonia and hypoxia/hypercarbia.
Right lower lobe pneumonia
COVID-positive.
Recent hospitalization with Proteus UTI. Completed course of antibiotics
Conditions prior to admission:
Severe COPD Gold stage IV
Chronic hypoxic/hypercarbic respiratory failure on nasal cannula oxygen at 4 L.
Obstructive sleep apnea not compliant with CPAP.
Chronic CHF preserved EF.
CAD with history of LAD stent.
Severe pulmonary hypertension.
Chronic incomplete RBBB.
Prostate cancer on antiandrogen therapy.
Dementia suspect vascular type
Obesity with BMI of 27
PLAN:
Toxic metabolic encephalopathy likely multifactorial in the settings of acute infection and hypercarbia. Appears does have some degree of chronic hypercapnia. Was on BiPAP on admission. Trialing him off 06/22. Blood gas with
Respiratory acidosis improved.
tion: pH 7.50/58/65
Now mental status improving, evaluated by speech and recommended regular diet.
CT scan of the head with no acute abnormalities.
Continue monitoring while treating below.
Aspiration precautions.
Acute on chronic hypoxic/hypercarbic respiratory failure.
Chest x-ray with new right lower lobe pneumonia.
COVID-positive.
Procalcitonin negative on 06/24
Status post Zosyn discontinued on 06/25.
Status post vancomycin MRSA screen negative discontinued
Blood cultures negative to date
Overall respiratory status improved
Follow-up ABG on 06/24 with reasonable compensation
Continue Paxlovid
Completed course of Decadron 6 mg daily on 06/25
Continue nebulizers
Unfortunately refusing BiPAP and has a high risk for decompensation and worsening of hypercarbic respiratory failure.
Chronic CHF preserved EF
Echo 12/21 LVEF 60-65%. Mild LVH. Mild MR. Mild TR. Pulmonary artery pressure 65 mmHg
CAD with remote PCI
ECG with no ischemia
Noted elevated pro CHF BNP off baseline at 14K, although with no evidence of volume overload
Continue oral Lasix monitoring creatinine
Continue preadmission regimen including Norvasc atorvastatin, metoprolol
Chronic normocytic anemia baseline heme positive stool.
Follow hemoglobin.
Currently no indication for invasive evaluation close
Dementia suspect vascular type.
Presented with TME as above. Monitor while also on IV steroid
Psychiatry following, on IV Ativan if needed
Continue Depakote.
Continue Zoloft
Prostate carcinoma
Continue antiandrogen therapy
CODE STATUS DNR
DVT prophylaxis Lovenox
Anticipated Discharge: 24 - 48 hours
Subjective/Interval History
-
Date of Service: June 25, 2025
Objective Data
-
Vital Signs:
Vital Signs
Temp Pulse Resp BP Pulse Ox
97.6 F 50 16 131/67 97
06/25/25 10:29 06/25/25 11:25 06/25/25 11:25 06/25/25 10:29 06/25/25 11:26
I&O
06/24/25 06/25/25 06/26/25
06:59 06:59 06:59
Intake Total 820 / 820
Balance 820 / 820
Physical Exam
-
General: Other (Historian. )
HEENT: Moist Mucous Membranes
Respiratory: Clear to Auscultation and Other (4 L nasal cannula )
Cardiac: Regular Rhythm and S1/S2
GI: Nontender and Nondistended
Genito-urinary: No Costovertebral Tender
Musculoskeletal: No Cyanosis and No Edema
Neuro: Awake, Alert and Other (irritable, and non cooperative. )
Hematologic / Lymphatic: No Lymphadenopathy
Psych: Agitated
[2025-06-25 15:52] VITALS: BP 116/67
[2025-06-25 18:24] LABS: Glucose - Point of Care 196 mg/dl (70-99)
[2025-06-25] MEDS: LOVENOX SC (18:26)
[2025-06-25 19:00] VITALS: BP 139/73
[2025-06-25] MEDS: FLOVENT 110 MCG INHALER INH (19:22)
--- NOTE | 2025-06-25 19:36 | PTCARENOTE ---
Told by idalia RN that pt keith has not come up yet and was told he needed 1 unit with dinner. Pt keith arrived and this RN went to give insulin. Pt stated 'no, why are you giving me that! NO NO NO I don't have diabetes! I want to talk to the doctor
I am not taking that!' Pt educated on blood sugar being elevated and that he needed insulin with his dinner. Pt continued to be uncooperative and shouting refusing the insulin.
[2025-06-25] MEDS: ATIVAN 1 MG IV (21:14)
[2025-06-25] MEDS: NSS (PRESERVATIVE FREE) 0.5 ML IV (21:17)
--- NOTE | 2025-06-25 21:33 | PTCARENOTE ---
PCT tried to do pt. AccuCheck, but pt. refused.
[2025-06-25 23:00] VITALS: BP 120/59
[2025-06-26 02:54] VITALS: BP 139/58
[2025-06-26 06:00] VITALS: BMI 26.6
[2025-06-26 06:50] LABS: Hematocrit 31.9 % (39.0-52.0); Hemoglobin 9.6 g/dL (13.0-18.0); Mean Corp Hgb Conc. 30.1 g/dL (33.0-37.0); Mean Corpuscular Volume 75.6 fL (80.0-94.0); Nucleated Red Blood Cells % 0 % (-); Platelet Count 353 10^3/uL (130-400); Red Cell Dist. Width 16.2 % (11.5-14.5)
[2025-06-26 06:59] LABS: Blood Urea Nitrogen 38 mg/dl (9-20); Calcium 8.3 mg/dl (8.4-10.2); Chloride 93 mmol/L (98-107); Estimated Creatinine Clearance 82 ml/min; Glucose 122 mg/dl (70-99); Potassium 4.2 mmol/L (3.5-5.1); Sodium 141 mmol/L (135-145); eGFR > 60.00
[2025-06-26 07:22] LABS: Carbon Dioxide 41 mmol/L (22-30)
[2025-06-26 07:52] VITALS: BP 130/60
[2025-06-26] MEDS: FLOVENT 110 MCG INHALER 2 PUFF INH (08:14)
[2025-06-26 08:21] VITALS: BP 130/68; PULSE 54; O2SAT 95
[2025-06-26] MEDS: PROTONIX 40 MG PO (08:42)
[2025-06-26] MEDS: DEPAKOTE (12 HR RELEASE) 500 MG PO (08:42)
[2025-06-26] MEDS: LOW STRENGTH ASPIRIN 81 MG PO (08:42)
[2025-06-26] MEDS: KCL 30 MEQ PO (08:43)
[2025-06-26] MEDS: LASIX 40 MG PO (08:43)
[2025-06-26] MEDS: ZOLOFT 100 MG PO (08:43)
[2025-06-26] MEDS: TOPROL XL 25 MG PO (08:43)
[2025-06-26] MEDS: NORVASC 5 MG PO (08:43)
[2025-06-26] MEDS: VITAMIN D3 (cholecalciferol) 50 MCG PO (08:43)
[2025-06-26] MEDS: CASODEX 50 MG PO (08:43)
[2025-06-26] MEDS: VITAMIN B-12 1000 MCG PO (08:43)
[2025-06-26 08:45] LABS: Glucose - Point of Care 137 mg/dl (70-99)
[2025-06-26] MEDS: NOVOLOG FLEXPEN-LOW RESISTANCE SC ×2 (08:49→11:43)
[2025-06-26 11:02] VITALS: BP 110/51
[2025-06-26 11:02] LABS: Glucose - Point of Care 168 mg/dl (70-99)
--- NOTE | 2025-06-26 11:25 | W.DS.TRANS ---
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
-
Discharge Instructions:
Discharge Diagnosis/Procedures COVID
COPD with hypercarbic respiratory failure
Diet Regular
Instructions:
Stand-Alone Forms:
Changes to Home Medications: No
Discharge Medications:
DC Medications w/original date entered in [employer]
aspirin 81 mg chewable tablet 81 mg PO DAILY Heart disease/condition 30 days #30 tabs 04/01/22
bicalutamide 50 mg tablet 50 mg PO DAILY Cancer 03/31/23
acetaminophen 325 mg tablet 650 mg PO Q4HPRN PRN mild pain/fever 01/31/24
bisacodyl 10 mg rectal suppository 10 mg VA DAILYPRN PRN if MOM is ineffective after 24 hrs 01/31/24
magnesium hydroxide 400 mg/5 mL oral suspension (Milk of Magnesia) 30 ml PO DAILYPRN PRN constipation 01/31/24
sertraline 50 mg tablet 100 mg PO DAILY Mental Health/Anxiety 01/31/24
atorvastatin 20 mg tablet 20 mg PO HS High Cholesterol 08/08/24
ipratropium 0.5 mg-albuterol 3 mg (2.5 mg base)/3 mL nebulization soln 3 ml inhalation R BID Lung/Breathing Issues 08/09/24
potassium chloride 10 mEq tablet,extended release 30 meq PO DAILY Electrolyte Repletion 11/15/24
budesonide 0.5 mg/2 mL suspension for nebulization 0.5 mg (2 mL) inhalation R BID Lung/breathing issues #60 mL 12/18/24
cyanocobalamin (vitamin B-12) 1,000 mcg tablet (Vitamin B-12) 1,000 mcg PO DAILY Supplement #0 tabs 12/18/24
ipratropium 0.5 mg-albuterol 3 mg (2.5 mg base)/3 mL nebulization soln 3 ml inhalation R Q4HPRN PRN shortness of breath #0 mL 12/18/24
metoprolol succinate 25 mg tablet,extended release 24 hr 25 mg PO DAILY Heart disease/condition #30 tabs 12/18/24
amlodipine 5 mg tablet (Norvasc) 5 mg PO DAILY Blood Pressure 02/23/25
fluticasone propionate 50 mcg/actuation nasal spray,suspension 2 spray intranasal DAILY Congestion 02/23/25
menthol 0.44 %-zinc oxide 20.6 % topical ointment (Moisture Barrier Ointment) 1 applic topical TID BUTTOCK 02/23/25
prednisone 5 mg tablet 5 mg PO MOWEFR COPD 02/23/25
divalproex 250 mg tablet,delayed release (Depakote) 500 mg PO BID Seizures 06/03/25
cholecalciferol (vitamin D3) 50 mcg (2,000 unit) tablet 50 mcg PO DAILY Supplement 06/21/25
furosemide 40 mg tablet 40 mg PO DAILY Fluid Retention/Swelling 06/21/25
pantoprazole 40 mg tablet,delayed release (Protonix) 40 mg PO BID Gastrointestinal Issue 06/21/25
Home Medication Changes
Pending Results: No
--- NOTE | 2025-06-26 11:39 | CM ---
MD enter order discharge.
PT indicates return to [facility].
Spoke with Juanita at [facility] patient is meterman and accepted back.
Pt on oxygen 2 liter Pox 93%.
Needs ambulance.Medical nec form completed.
Spoke with sister Camila reviewed IMM . She agreed with discharge back [facility].
[facility]
report [phone]
fax [phone]
PLAN To [facility]
--- NOTE | 2025-06-26 12:51 | W.PN.PUL3 ---
Today's Communication / Plan
-
- Continue to wean oxygen
- Incentive spirometry for right lower lobe atelectasis
- Monitor for any sign or symptom of infection including fever or increased cough with expectoration.
- Outpatient follow-up with [facility] pulmonary clinic in 2 to 4 weeks time
- Discharge planning
- Pulmonary team will sign off, please call as needed
Assessment
-
Assessment: 74-year-old male with a past medical history of COPD, chronic respiratory failure with hypoxia + hypercapnia, current cigarette use, hypertension, history of cellulitis, history of VT, chronic systolic heart failure, chronic
supplemental oxygen use, and history of prostate cancer who presents with acute agitation and altered mental status. In triage, he was very malodorous with his depends saturated with urine. CT head showed no evidence of a acute intracranial
abnormality. CXR showed patchy parenchymal opacification within the right lower lobe, concerning for pneumonia. Also increased interstitial markings in the left lower lobe, suspicious for an interstitial pneumonia/pneumonitis. Blood cultures
collected, urine cultures collected, flu swab was negative and he was found to be COVID-19 antigen positive. Given Haldol in the ER in addition to Vanco/cefepime. Initially, BiPAP was come to be placed onto the patient but he refused; he also
initially refused blood gas. He ultimately was placed onto BiPAP 15/5 blood with 4 L/min. He was transferred to the IMU and now pulmonary service consulted for additional management/recommendations.
Conditions present [employer]OR [employer]ATEGIC [employer]NERSHIPS:
Coronary disease with history of LAD stent and elevated filling pressures per catheterization December 2021
Noncompliance, refusal of treatment
Severe COPD/emphysema, GOLD IV
FEV1 30%
Follows with Dr. Marte in OP last seen 06/2024 - Saw Delmy MARADIAGA.
Regimen: Pulmicort twice a day/DuoNebs 3-4 times a day/albuterol HFA as needed.
Declined low-dose radiation screening-has not followed through. Most recent CT chest in the hospital 08/15/2024: No lung nodules.
Chronic hypoxemia, on 2-4L/Poor compliance with oxygen.
Severe pulm hypertension, PA pressure 70-likely due to chronic hypercapnic respiratory failure/advanced COPD; repeat echo 12/13/2024 showed PASP of 65 with normal RV size/function
Echocardiogram 08/09/2024: LVEF 55%. Mild LVH. Dilated right ventricular with low normal RV systolic function. Estimated pulmonary pressure 65-70 mmHg.
Suspect RICARDO/OHS, never had sleep study/declined testing
He declined PAP therapy 06/2024
Prostate cancer
Incomplete right bundle branch block
Overweight BMI 26
Prot mirabilis UTI
History of lower extremity cellulitis
Former smoker: Quit at least 2-1/2 years ago. 40+ pack year history
Assessment and plan
#1. Acute on chronic hypoxic/hypercapnic respiratory failure
- Suspect more recent decompensation is related to acute COVID-19 and pneumonia.
- Continue supplemental oxygen. Continue to offer BiPAP, patient however been refusing for last 4 night. Unfortunately at risk of CO2 retention and encephalopathy
- Appears to be at his baseline per patient. Down to 1 L supplemental oxygen. Denies any cough or expectoration.
#2. Acute metabolic encephalopathy due to hypercapnia
- Responded well to BiPAP. pCO2 improved, currently compensated hypercapnia noted on follow-up VBG
- Patient however not compliant with BiPAP, at risk of CO2 retention
- Patient might have underlying sleep disordered breathing, refused sleep study in past.
#3. Acute COVID-19 with RLL pneumonia and trace effusion
- Suspect trace parapneumonic effusion, currently too small for a safe thoracentesis
- Normal procalcitonin, d/c antibiotics. Bacterial coinfection with COVID-19 tends to be less frequent
- MRSA screen negative
-Patient has completed Paxlovid and dexamethasone.
- Follow-up chest x-ray essentially unchanged. Do not appreciate any change in size of trace pleural effusion
#4. COPD exacerbation due to RLL pneumonia (?aspiration) in the setting of acute COVID-19
- No wheezing this morning.
- Nightly BiPAP if patient agreeable
- Baseline severe underlying COPD/emphysema
- Appears to be at baseline, resume home regimen of nebulized treatment
#5. Pulmonary HTN
- Suspect primarily group III with advanced COPD, hypercapnia and hypoxia, also likely group II with elevated BNP and volume overload
#6. Acute on chronic HFpEF
- Continue p.o. Lasix. Mild vascular congestion noted on chest x-ray
- Blood pressure borderline, hold off further uptitration of diuretics.
Code status: DNR/DNI
Patient appears to be at baseline, discharge planning.
Data:
CXR 06/21/2025:
Patchy parenchymal opacity within the right lower lung, mainly within the right lower lobe, which likely represents pneumonia.
Increased interstitial markings within the left lower lung, which is likely interstitial-type pneumonia.
No evidence for significant associated pleural effusion.
Cardiomegaly.
ECHO 11/2024:
Normal left ventricular size and systolic function. No regional wall motion
abnormalities are seen. LV ejection fraction is 60-65% by visual assessment.
Mild concentric left ventricular hypertrophy.
Normal right ventricular size. Normal right ventricular systolic function.
Mild mitral regurgitation.
Mild tricuspid regurgitation. Estimated pulmonary artery pressure of 65 mmHg.
Assuming a right atrial pressure of 3 mmHg.
Total time spent today was 38 minutes for this encounter. Time includes reviewing laboratory test/imaging results, reviewing pertinent medical records, obtaining and reviewing medical history, performing an appropriate exam, ordering medications,
tests and procedures. Time also includes documentation of this encounter, coordinating patient care and communicating with other healthcare professionals. Total time does not include separately billed tests performed on this date of service.
Subjective Data
-
Date of Service:
Date of Service: June 26, 2025
Chief Complaint: Pulmonary Follow Up
Subjective:
Comfortably sitting in bed, down to 1 L supplemental oxygen today.
Review of Systems
Genitourinary: Other (All 14 systems reviewed and negative except as stated above in the history of present illness.)
Objective Data
Data Reviewed
Vital Signs / I&O / Oxygen:
Vital Signs
Temp Pulse Resp BP Pulse Ox
97.8 F 54 16 110/51 93
06/26/25 11:02 06/26/25 11:02 06/26/25 11:02 06/26/25 11:02 06/26/25 11:51
SaO2 93
Nasal Cannula flow liters per 2
minute
Physical Exam
General: Respiratory Distress (n) and Comfortable
HEENT: Normocephalic and Anicteric
Cardiovascular: S1-S2 and Peripheral Edema (n)
Respiratory: Wheeze (n), Crackles (n), Rhonchi (None) and Non-Labored Respirations
GI: Soft, Non Distended, Non Tender and Normal Bowel Sounds
Neurology: Awake and Tremors (n)
Skin: Warm, Dry and Cyanosis (n)
Labs/Micro/Reports
Lab Data
06/26/25 06:02
06/26/25 06:02
Microbiology
06/21/25 09:00 Blood/Venous Blood Culture - Final
No Growth - Final Report
06/21/25 11:24 Blood/Venous Blood Culture - Final
No Growth - Final Report
06/21/25 Unknown Nose Nasal Screen MRSA (PCR) - Final
MRSA not detected - performed by PCR methodology.
== END 2025-06-26 15:02 | DRG 177 ==
LOC: 3 WEST ACU 12:42
PROVIDERS: Internal Medicine; Physician Assistant Medical; ADMITTING PHYSICIAN Internal Medicine; CONSULT PHYSICIAN Internal Medicine Critical Care Medicine; CONSULT PHYSICIAN Psychiatry & Neurology Psychiatry; EMERGENCY PHYSICIAN Emergency Medicine
DX: U07.1 COVID-19 (principal); G92.8 Other toxic encephalopathy; J96.22 Acute and chronic respiratory failure with hypercapnia; J96.21 Acute and chronic respiratory failure with hypoxia; J12.82 Pneumonia due to coronavirus disease 2019; I50.33 Acute on chronic diastolic (congestive) heart failure; J15.9 Unspecified bacterial pneumonia; J98.11 Atelectasis; J44.0 Chronic obstructive pulmonary disease with (acute) lower respiratory infection; F17.210 Nicotine dependence, cigarettes, uncomplicated; Z11.52 Encounter for screening for COVID-19; I11.0 Hypertensive heart disease with heart failure; I27.20 Pulmonary hypertension, unspecified; Z66 Do not resuscitate; E66.9 Obesity, unspecified; Z68.27 Body mass index [BMI] 27.0-27.9, adult; Z79.82 Long term (current) use of aspirin; Z79.899 Other long term (current) drug therapy
CPT/HCPCS: 36600; 51701; 70450; 71045; 71046; 80048; 80164; 81003; 81015; 82140; 82805; 82962; 83036; 83880; 84145; 85025; 85027; 87040; 87086; 87502; 87641; 87811; 92610; 93005; 93970; 94640; 94660; 96365; 96375; 97163; 97167; 99291

== ENCOUNTER 2025-07-31 12:56 | Inpatient (IN) | payer MEDICARE, OTHER, SELFPAY ==
[2025-07-31] VITALS (15 sets, daily range): BP systolic 95–130; BP diastolic 42–70; PULSE 2–52; BMI 25.7; BMI 24.3
[2025-07-31 08:24] LABS: Venous Blood Gas B.E. 17.4 mmol/L (-4 to +4); Venous Blood Gas O2 Sat % 76.0 %
[2025-07-31 08:26] LABS: Hematocrit 31.9 % (39.0-52.0); Hemoglobin 9.6 g/dL (13.0-18.0); Mean Corp Hgb Conc. 30.1 g/dL (33.0-37.0); Mean Corpuscular Volume 74.5 fL (80.0-94.0); Nucleated Red Blood Cells % 0 % (-); Platelet Count 291 10^3/uL (130-400); Red Cell Dist. Width 18.0 % (11.5-14.5)
[2025-07-31 08:42] LABS: ALT (SGPT) 10 U/L (0-50); AST (SGOT) 20 U/L (17-59); Albumin 3.8 g/dl (3.5-5.0); Alkaline Phosphatase 69 U/L (38-126); Blood Urea Nitrogen 21 mg/dl (9-20); Calcium 9.1 mg/dl (8.4-10.2); Chloride 92 mmol/L (98-107); Estimated Creatinine Clearance 88 ml/min; Glucose 84 mg/dl (70-99); Potassium 4.1 mmol/L (3.5-5.1); Sodium 139 mmol/L (135-145); Total Protein 6.7 g/dl (6.3-8.2); eGFR > 60.00
--- NOTE | 2025-07-31 09:13 | ED.GENMED ---
History of Present Illness
General
Chief Complaint: Change in Mental Status
Time Seen by Provider: 07/31/25 08:10
History of Present Illness
History of Present Illness:
74-year-old male with history of CHF, COPD on chronic O2, dementia, bipolar disorder presenting from nursing facility for concern of change in mental status. Per nursing facility, felt that patient was more confused than typical. Medics reported
they were called out to the facility 2 days, however patient refused. Today the nursing facility advised again the patient come to the hospital. Patient on arrival denies shortness of breath or chest pain. When questioned about BiPAP, notes that
he is supposed to wear it at nighttime, however does not like because he is uncomfortable. On review of EMR, recent admission from 06/21 to 06/26 for hypercapnic respiratory failure with COVID and pneumonia, also encephalopathy. Patient denies
additional acute medical complaints
Past History
Past History
ED Past Medical History: CAD, COPD, HTN, VT, Psychiatric and Other ( Adenocarcinoma of prostate, Muscle wasting and atrophy, Hypertension, Anxiety, NSTEMI (non-ST elevated myocardial infarction), Nocturia, Heart failure with preserved ejection
fraction, VT (ventricular tachycardia), Cellulitis, Metabolic encephalopathy, Acute respiratory failure with hyp)
ED Past Surgical History: Cardiac
Social History
Tobacco: Smoker
Alcohol: None
Drug: None
Personal:
Living: senior care
Employment: Not employed
Family History
Family History: Unable to obtain (Patient obtunded)
Phy Exam
Physical Exam
Physical Exam:
General: Well-appearing, no clinical signs of dehydration, nontoxic and in no acute distress
HEENT: protecting airway
Neck: appears supple
CV: Normal heart rate, regular rhythm
Resp: Diminished air movement bilaterally, no increased work of breathing
Abd: Soft and non-distended, no tenderness to palpation
Extremities: No deformities, no swelling
Neuro: alert, no focal neurologic deficit. Disoriented to time
: deferred
Rectal: deferred
Psych: Normal affect
Skin: Intact
Course
Orders/Labs/Results
Orders:
Orders
07/31/25 08:13
Electrocardiogram (*1) Urgent
Reason for Study: Other
Other Reason for Exam: Possible Sepsis
Cardiac Monitoring- Treatment ONCE
EKG- Treatment ONCE
IV Insert/Care/Rem.- Treatment PRN
Straight cath- Treatment ONCE
Urinalysis Reflex To Culture Urgent
Date Specimen was Collected: 07/31/25
Time Specimen was Collected: 08:13
O2 Therapy [RESP] Urgent
Titrate/Wean O2 to maintain O2 sat greater than (%): 93
Special Instructions: TO MAINTAIN CONTINUOUS O2 SATS > OR = 93%
Pulse Ox/cont/shift [RESP] Urgent
Quantity: 1
Special Instructions: CONTINUOUS
07/31/25 08:15
Comprehensive Metabolic Panel Urgent
07/31/25 08:16
Complete Blood Count/With Diff Urgent
Venous Blood Gas Urgent
%Oxygen/Room Air: 3LNC 92%
07/31/25 08:34
Bipap [RESP] Urgent
Patient to use own unit?: No
Inspiratory Pressure (cm H2O): 10
Expiratory Pressure (cm H2O): 5
07/31/25 09:11
CR Chest Portable - 1 View Urgent
Comment:
Reason For Exam: co2 retention
Reason Study Needs to be Portable: Unable to Transport
Abnormal Lab Results
07/31/25 07/31/25
08:15 08:16
RBC 4.28 L 10^6/uL
(4.70-6.10)
Hgb 9.6 L g/dL
(13.0-18.0)
Hct 31.9 L %
(39.0-52.0)
MCV 74.5 L fL
(80.0-94.0)
MCH 22.4 L pg
(27.0-31.0)
MCHC 30.1 L g/dL
(33.0-37.0)
RDW 18.0 H %
(11.5-14.5)
Absolute Monos (auto) 0.8 H 10^3/uL
(0.1-0.6)
Monocytes % 13.8 H %
(1.7-9.3)
VBG pCO2 79 H* mmHg
(35-48)
VBG HCO3 45.7 H mmol/L
(22-27)
Chloride 92 L mmol/L
(98-107)
BUN 21 H mg/dl
(9-20)
07/31/25 08:16
07/31/25 08:15
Vital Signs
Initial and Last Documented VS:
Initial Vital Signs
Temp Pulse Resp BP Pulse Ox
97.6 F 53 22 121/69 87
07/31/25 07:52 07/31/25 07:52 07/31/25 07:52 07/31/25 07:52 07/31/25 07:52
Last Documented Vital Signs
Temp Pulse Resp BP Pulse Ox
97.6 F 53 17 114/64 95
07/31/25 07:52 07/31/25 09:30 07/31/25 09:30 07/31/25 09:30 07/31/25 09:53
MDM/Problems Addressed
MDM/Problems Addressed:
74-year-old male with history of CHF, COPD on chronic O2, dementia, bipolar disorder presenting for change in mental status from nursing facility. Vitals significant for low oxygenation, however stable on nasal cannula.
On exam, patient does appear slightly confused, however is demented at baseline. He presently has no acute complaints. Known history of COPD with prior history of hypercapnic respiratory failure and encephalopathy. Suspect hypercapnia as etiology
of symptoms with likely noncompliance with CPAP at night. Currently afebrile, nontoxic. Lower for infectious pathology. No present focal neurologic deficits with lower suspicion for central neurologic process. Will plan for laboratory analysis
including VBG. Will also obtain CT brain imaging and chest x-ray imaging.
09:10 - Labs consistent with hypercapnia. Will start on BiPAP.
10:00- Patient having difficulty with compliance of the BiPAP. Did discuss with his cousin and after discussion with cousin, patient is more agreeable. However suspect that his complaints is secondary to underlying dementia, as well as
encephalopathy. Plan for admission for hypercapnic respiratory failure and encephalopathy
*Pulse Oximetry
SaO2: 54
Oxygen Mode of Delivery: Room air
Patient hypoxic: yes
*Critical Care Note
Total Time (30-74mins, 75-104mins- exclusive of procedures): Not Applicable
ED Attending Note
-
Portions of this chart may have been created with voice recognition software.� Occasional wrong word or��sound alike� substitutions may have occurred due to the inherent limitations of voice recognition software.
Discharge Plan
Departure
Prescriptions:
No Action
aspirin 81 MG tablet,chewable
81 mg PO DAILY 30 Days Qty: 30 0RF
bicalutamide 50 mg tablet
50 mg PO DAILY
acetaminophen 325 mg Tablet
650 mg PO Q4HPRN PRN (Reason: mild pain/fever)
sertraline 50 mg Tablet
100 mg PO DAILY
magnesium hydroxide [Milk of Magnesia] 400 mg/5 mL suspension
30 ml PO DAILYPRN PRN (Reason: constipation)
bisacodyl 10 mg suppository
10 mg NV DAILYPRN PRN (Reason: if MOM is ineffective after 24 hrs)
atorvastatin 20 mg Tablet
20 mg PO HS
ipratropium-albuterol 0.5 mg-3 mg(2.5 mg base)/3 mL solution for nebulization
3 ml inhalation R BID
potassium chloride 10 mEq Tablet Extended Release
30 meq PO DAILY
metoprolol succinate 25 mg Tablet Extended Release 24 Hr
25 mg PO DAILY Qty: 30 11RF
ipratropium-albuterol 0.5 mg-3 mg(2.5 mg base)/3 mL Solution For Nebulization
3 ml inhalation R Q4HPRN PRN (Reason: shortness of breath) Qty: 0 0RF
cyanocobalamin (vitamin B-12) [Vitamin B-12] 1,000 mcg Tablet
1,000 mcg PO DAILY Qty: 0 0RF
budesonide 0.5 mg/2 mL Suspension For Nebulization
0.5 mg inhalation R BID Qty: 60 0RF
prednisone 5 mg Tablet
5 mg PO MOWEFR
amlodipine [Norvasc] 5 mg Tablet
5 mg PO DAILY
fluticasone propionate 50 mcg/actuation [place],Suspension
2 spray INTRANASAL DAILY
menthol-zinc oxide [Moisture Barrier Ointment] 0.44-20.6 % Ointment
1 applic TOPICAL TID
divalproex [Depakote] 250 mg Tablet,Delayed Release (Dr/Ec)
500 mg PO BID
furosemide 40 mg tablet
40 mg PO DAILY
pantoprazole [Protonix] 40 mg tablet,delayed release (DR/EC)
40 mg PO BID
cholecalciferol (vitamin D3) 50 mcg (2,000 unit) tablet
50 mcg PO DAILY
Fleet Enema 19-7 gram/118 mL Enema
118 ml NV DAILYPRN PRN (Reason: if no bm aftr dulcolax)
Referrals:
UNKNOWN - PT DOES,NOT KNOW [Unknown Provider]
Interventions
Interventions:
*Risk Screen - Suicide Last Done: 07/31/25 07:55
*General Assessment Last Done: 07/31/25 09:40
*Neglect/Abuse Screening Last Done: 07/31/25 07:55
*ED COVID-19 Vaccine History Last Done: 07/31/25 09:29
*ED Influenza Vaccine History Last Done: 07/31/25 09:29
ED- Cardiac Assessment Last Done: 07/31/25 09:53
ED- Neurological Assessment Last Done: 07/31/25 09:53
ED- Pulmonary Assessment Last Done: 07/31/25 09:53
Discharge Date and Time
Print Language: MAORI
[2025-07-31 10:42] LABS: Carbon Dioxide 44 mmol/L (22-30)
--- NOTE | 2025-07-31 11:46 | HPS.HSE ---
Family Physician
-
Family Physician: Adam Leiva
Chief Complaint
-
confusion, hypoxia
History of Present Illness
74M with COPD, chronic respiratory failure with hypoxia and hypercapnia on home O2 and noncompliant with CPAP, HTN, chronic systolic CHF, severe pulmonary HTN, CAD, dementia, p/w altered mental status, sent in from group home. Per ED notes
patient was more confused at [place] than normal, in ED patient was found to be hypoxic to 87 on 2 L and hypercarbic with pCO2 of 79. He was noted to have combativeness. He was placed on BiPAP, however he refused it, at the time of my arrival he is
only wearing oxygen via nasal cannula. He denies chest pain, shortness of breath, cough, fever, nausea, vomiting, abdominal pain, or any other issue. RN is at bedside
Medical History
Past Medical History
Past Medical History: Reports CHF and Other
Additional Past Medical History:
Severe COPD Gold stage IV
Chronic hypoxic/hypercarbic respiratory failure on nasal cannula oxygen at 4 L.
Obstructive sleep apnea not compliant with CPAP.
Chronic CHF preserved EF.
CAD with history of LAD stent.
Severe pulmonary hypertension.
Chronic incomplete RBBB.
Prostate cancer on antiandrogen therapy.
Dementia suspect vascular type
Obesity with BMI of 27
Past Surgical History: Reports None
Social History
Unable to obtain full social history at this time due to: Dementia
Tobacco: Former Smoker
Alcohol: None
Drug: None
Living: Assisted
Family History
Family History: Unable to Obtain (Dementia)
Allergies / Home Medications
Allergies reflects when Allergies were last updated in [facility].
Home Medications with original date entered in [employer]
Allergy/Medication List:
Allergies
Allergy/AdvReac Type Severity Reaction Status Date / Time
No Known Allergies Allergy Verified 07/31/25 07:52
Home Medications
aspirin 81 mg chewable tablet 81 mg PO DAILY Heart disease/condition 30 days #30 tabs 04/01/22
bicalutamide 50 mg tablet 50 mg PO DAILY Cancer 03/31/23
acetaminophen 325 mg tablet 650 mg PO Q4HPRN PRN mild pain/fever 01/31/24
bisacodyl 10 mg rectal suppository 10 mg MA DAILYPRN PRN if MOM is ineffective after 24 hrs 01/31/24
magnesium hydroxide 400 mg/5 mL oral suspension (Milk of Magnesia) 30 ml PO DAILYPRN PRN constipation 01/31/24
sertraline 50 mg tablet 100 mg PO DAILY Mental Health/Anxiety 01/31/24
atorvastatin 20 mg tablet 20 mg PO HS High Cholesterol 08/08/24
ipratropium 0.5 mg-albuterol 3 mg (2.5 mg base)/3 mL nebulization soln 3 ml inhalation R BID Lung/Breathing Issues 08/09/24
potassium chloride 10 mEq tablet,extended release 30 meq PO DAILY Electrolyte Repletion 11/15/24
budesonide 0.5 mg/2 mL suspension for nebulization 0.5 mg (2 mL) inhalation R BID Lung/breathing issues #60 mL 12/18/24
cyanocobalamin (vitamin B-12) 1,000 mcg tablet (Vitamin B-12) 1,000 mcg PO DAILY Supplement #0 tabs 12/18/24
ipratropium 0.5 mg-albuterol 3 mg (2.5 mg base)/3 mL nebulization soln 3 ml inhalation R Q4HPRN PRN shortness of breath #0 mL 12/18/24
metoprolol succinate 25 mg tablet,extended release 24 hr 25 mg PO DAILY Heart disease/condition #30 tabs 12/18/24
amlodipine 5 mg tablet (Norvasc) 5 mg PO DAILY Blood Pressure 02/23/25
fluticasone propionate 50 mcg/actuation nasal spray,suspension 2 spray intranasal DAILY Congestion 02/23/25
menthol 0.44 %-zinc oxide 20.6 % topical ointment (Moisture Barrier Ointment) 1 applic topical TID BUTTOCK 02/23/25
prednisone 5 mg tablet 5 mg PO MOWEFR COPD 02/23/25
divalproex 250 mg tablet,delayed release (Depakote) 500 mg PO BID Seizures 06/03/25
cholecalciferol (vitamin D3) 50 mcg (2,000 unit) tablet 50 mcg PO DAILY Supplement 06/21/25
furosemide 40 mg tablet 40 mg PO DAILY Fluid Retention/Swelling 06/21/25
pantoprazole 40 mg tablet,delayed release (Protonix) 40 mg PO BID Gastrointestinal Issue 06/21/25
sodium phosphates 19 gram-7 gram/118 mL enema (Fleet Enema) 118 ml MA DAILYPRN PRN if no bm aftr dulcolax 07/31/25
Review of Systems
-
Unable to obtain full review of systems at this time due to: Dementia
Physical Exam
Vital Signs
Vital Signs
Temp Pulse Resp BP Pulse Ox
97.6 F 54 15 105/61 95
07/31/25 07:52 07/31/25 10:00 07/31/25 10:00 07/31/25 10:00 07/31/25 10:00
Physical Exam
General: No Apparent Distress, Comfortable and Conversant
HEENT: Anicteric, Moist mucous membranes and PERRLA
Respiratory: Clear; No Wheezes, Rales or Rhonchi
Cardiac: S1/S2 and Regular Rhythm; No Murmur
GI: Soft, Non Tender, Non Distended and Normal Bowel Sounds
Musculoskeletal: No Edema
Skin: Warm and Dry; No Rash, Jaundice or Ulcers
Neuro: Awake, Alert and Oriented (To [facility])
Hematologic/Lymphatic: No Lymphadenopathy
Psych: Apparent Dementia
Laboratory Results
-
07/31/25 08:16
07/31/25 08:15
Laboratory Results
Total Bilirubin 0.4 mg/dl (0.2-1.3) 07/31/25 08:15
AST 20 U/L (17-59) 07/31/25 08:15
ALT 10 U/L (0-50) 07/31/25 08:15
Alkaline Phosphatase 69 U/L (38-126) 07/31/25 08:15
Data Reviewed
-
Diagnostic Radiology: Image Personally Visualized and interpreted and Report Reviewed by me
Lab Data: Labs Reviewed by me, Discussed with Nurse and Discussed with Patient
Old Records: Reviewed
Impression/Plan
-
IMPRESSION:
74M with chronic COPD with CO2 retention, noncompliant with nightly CPAP, p/w altered mental status.
PLAN:
Acute on chronic hypoxic/hypercarbic respiratory failure with acute metabolic encephalopathy
Hypoxic to 87, hypercapneic w/ pCO2 79
Suspect due to patient's noncompliance with nightly CPAP. No evidence of acute COPD exacerbation.
For chronic COPD will continue his DuoNebs, budesonide, low-dose prednisone.
Initiated BiPAP, patient refused, will try again to place. Respiratory care per O2 protocol while not wearing BiPAP.
Trend ABGs
CXR with resolving pneumonia from last admission, currently no fever or leukocytosis or cough so we will not place on antibiotics
Has baseline dementia, will place on delirium protocol.
Chronic CHF preserved EF
Pulmonary hypertension
Echo 12/21 LVEF 60-65%. Mild LVH. Mild MR. Mild TR. Pulmonary artery pressure 65 mmHg
CAD with remote PCI
ECG with no ischemia
Appears compensated
Continue preadmission regimen including Norvasc, atorvastatin, metoprolol, Lasix
Chronic anemia
Microcytic, reviewed anemia panel from last month, appears to be iron deficiency
Hemoglobin is at baseline
Start iron supplementation
Dementia
suspect vascular type.
PRN Seroquel.
Continue Depakote
Continue sertraline
Prostate carcinoma
Continue antiandrogen therapy
DVT PPx
Lovenox SQ
--- NOTE | 2025-07-31 16:40 | EDCM ---
Reviewed chart, pt was sleeping when observed. Attempted to reach pt's sister Camila, mail left. Information obtained from April admission.
Pt resides at [facility] in LTC, has been there since 2022. MA bed hold.
Needs assistance for ADLs and personal care. Can ambulate short distances with RW with stand by assist, needs assistance with transfers. Mostly wheelchair bound, can self propel. Feeds self. Wears O2 2L NC continuously, is supposed to wear BiPAP at
night but refuses because it is uncomfortable.
PCP: Adam Leiva
Pharmacy: [facility] through [facility]
Updated [facility]ia[facility] Lali.
Anticipate return to [facility], CM will continue to follow for all discharge planning needs.
[2025-07-31 17:05] LABS: Urine Character Cloudy (Clear)
[2025-07-31] MEDS: LOVENOX 40 MG SC (17:43)
[2025-07-31] MEDS: DELTASONE 5 MG PO (17:43)
--- NOTE | 2025-07-31 17:48 | PTCARENOTE ---
Addendum entered by Marina Joseph RN 07/31/25 19:14:
MASD
Original Note:
Received patient from ED. Patient awake and alert with garbled speech and confused conversation. Patient angry and argumentative. INC of large soft BM upon arrival. Groin and scrotum with MSAD. Blanchable pink at sacrum. Barrier cream applied.
Condom cath applied to patient. Oriented patient to room. SB on monitor. Spo2 97% on 2L.
[2025-07-31 18:28] LABS: Urine Squamous Cell 0-2 /LPF (Few)
[2025-07-31 18:29] LABS: Urine White Cell >100 /HPF (0-5)
[2025-07-31] MEDS: FEOSOL 325 MG PO (19:29)
[2025-07-31] MEDS: PROTONIX 40 MG PO (19:29)
[2025-07-31] MEDS: DEPAKOTE (12 HR RELEASE) 500 MG PO (19:30)
[2025-07-31] MEDS: DUONEB 3 ML INH (19:38)
[2025-07-31] MEDS: PULMICORT 0.5 MG INH (19:38)
[2025-07-31] MEDS: LIPITOR PO (22:55)
[2025-08-01] VITALS (9 sets, daily range): BP systolic 96–124; BP diastolic 47–98; BMI 24.5
--- NOTE | 2025-08-01 04:04 | PTCARENOTE ---
Assumed care of patient from dayshift RN. Pt aaox3 but frequently forgetful. Pt agitated and uncooperative with majority of care. Sinus swathi on the tele monitor, hr 52. SpO2 93% on 2L NC. VS and assessment as documented. Pt inc of b&b and had a
large brown bm. cc #[address] draining aries urine. Hygiene completed. Pt resting in bed with call thompson in reach and bed alarm on.
[2025-08-01] MEDS: PULMICORT INH (07:24)
[2025-08-01] MEDS: DUONEB INH (07:24)
[2025-08-01] MEDS: VITAMIN B-12 1000 MCG PO (08:33)
[2025-08-01] MEDS: LOW STRENGTH ASPIRIN 81 MG PO (08:34)
[2025-08-01] MEDS: TOPROL XL 25 MG PO (08:34)
[2025-08-01] MEDS: NORVASC 5 MG PO (08:35)
[2025-08-01] MEDS: FEOSOL 325 MG PO ×2 (08:35→19:26)
[2025-08-01] MEDS: DEPAKOTE (12 HR RELEASE) 500 MG PO ×2 (08:35→19:25)
[2025-08-01] MEDS: KCL 30 MEQ PO (08:35)
[2025-08-01] MEDS: LASIX 40 MG PO (08:35)
[2025-08-01] MEDS: VITAMIN D3 (cholecalciferol) 50 MCG PO (08:35)
[2025-08-01] MEDS: PROTONIX 40 MG PO ×2 (08:35→19:26)
[2025-08-01] MEDS: CASODEX 50 MG PO (08:36)
--- NOTE | 2025-08-01 08:44 | PTCARENOTE ---
Pt awake and alert, very confused talking about a cousin and being held against his will. Pt took pills withoput incident ,. Called out of room to talk to a [place] police officer in re to this pt, as he called 911 stating he was being held against his
will. When he called 911 he did not spell his name correctly, police came got correct spelling and date of . airplane first officer did not speak with pt. I took phone aaway from him. Pt must have heard police were her and said I lied to them.
[2025-08-01] MEDS: ZOLOFT 100 MG PO (09:00)
--- NOTE | 2025-08-01 09:24 | W.PN.HOSP.TC ---
Today's Communication/Plan
-
IV abx for UTI, transfer to floor, change bipap to nightly
Assessment / Plan
Assessment / Plan
74M with chronic COPD with CO2 retention, noncompliant with nightly CPAP, p/w altered mental status.
PLAN:
Acute on chronic hypoxic/hypercarbic respiratory failure with acute metabolic encephalopathy
Hypoxic to 87 in ED, hypercapneic w/ pCO2 79
Suspect due to patient's noncompliance with nightly CPAP. No evidence of acute COPD exacerbation.
For chronic COPD will continue his DuoNebs, budesonide, low-dose prednisone.
Initiated BiPAP, patient refused. Respiratory care per O2 protocol while not wearing BiPAP. Repeat blood gas pending. Hypoxia resolved wearing home O2. Change bipap to nightly and with naps.
CXR with resolving pneumonia from last admission, currently no fever or leukocytosis or cough
Has baseline dementia, will place on delirium protocol.
UTI with acute metabolic encephalopathy
Empiric ceftriaxone
UCx pending
Chronic CHF preserved EF
Pulmonary hypertension
Echo 12/21 LVEF 60-65%. Mild LVH. Mild MR. Mild TR. Pulmonary artery pressure 65 mmHg
CAD with remote PCI
ECG with no ischemia
Appears compensated
Continue preadmission regimen including Norvasc, atorvastatin, metoprolol, Lasix
Chronic anemia
Microcytic, reviewed anemia panel from last month, appears to be iron deficiency
Hemoglobin is at baseline
iron supplementation
Dementia
suspect vascular type.
PRN Seroquel.
Continue Depakote
Continue sertraline
Prostate carcinoma
Continue antiandrogen therapy
DVT PPx
Lovenox SQ
Anticipated Discharge: 24 - 48 hours
Subjective/Interval History
-
Date of Service: August 01, 2025
Pt agitated, refused bipap yesterday, asks why he is here but not understanding explanation of medical treatments
Objective Data
-
Labs:
Laboratory Results
08/01/25
06:00
WBC Pending
Hgb Pending
Hct Pending
Plt Count Pending
Sodium Pending
Potassium Pending
Chloride Pending
Carbon Dioxide Pending
BUN Pending
Creatinine Pending
Glucose Pending
Calcium Pending
Vital Signs:
Vital Signs
Temp Pulse Resp BP Pulse Ox
97.5 F 54 22 113/47 95
08/01/25 07:26 08/01/25 08:34 08/01/25 04:00 08/01/25 08:34 08/01/25 04:00
I&O
07/31/25 08/01/25 08/02/25
06:59 06:59 06:59
Intake Total 960 / 960
Output Total 600 / 600
Balance 360 / 360
Review of Systems
-
Unable to obtain full review of systems at this time due to: Dementia
History Source: Patient
All other systems: Reviewed and negative
Physical Exam
-
General: No Apparent Distress
HEENT: Moist Mucous Membranes, Anicteric and PERRLA
Respiratory: Clear to Auscultation; Negative Wheezes, Rales or Rhonchi
Cardiac: Regular Rhythm and S1/S2; Negative Murmur, Rub or Gallop
GI: Soft, Nontender, Nondistended and Normal Bowel Sounds
Musculoskeletal: No Edema
Skin: Warm and Dry; Negative Rash, Ulcers or Lesions
Neuro: Awake and Alert; Negative Oriented
Hematologic / Lymphatic: No Lymphadenopathy
Psych: Agitated and Apparent Dementia
Data Reviewed
-
Labs: Labs Reviewed by me, Discussed with Nurse and Discussed with Patient
--- NOTE | 2025-08-01 10:25 | PTCARENOTE ---
Pt refusing lab work. Pt remains very agitated
--- NOTE | 2025-08-01 11:39 | PTCARENOTE ---
Pt refusing Rocephin DR Burns aware Pt called police again, phone removed from him. Pt cursing at this nurse
--- NOTE | 2025-08-01 13:00 | PTCARENOTE ---
Pt now wants to camm Hima Álvarez to ask if his sister . Pt continues to be nasty.
--- NOTE | 2025-08-01 14:31 | PTCARENOTE ---
Report to [facility] on 4th floor
--- NOTE | 2025-08-01 14:49 | PTCARENOTE ---
Pt to room 430 via transport
--- NOTE | 2025-08-01 16:02 | PTCARENOTE ---
pt transferred from IMU AO confused, agitated, LCTA B/L, NSR, round obese, incont of urine, ripped off CC. skin intact, no edema +PP b/l. bed alarm in place, CB in reach, high fall risk. hourly rounds.
[2025-08-01] MEDS: LOVENOX 40 MG SC (18:10)
[2025-08-01] MEDS: BACTRIM DS 800 MG/160 MG 1 TABLET PO (19:25)
[2025-08-01] MEDS: DUONEB 3 ML INH (20:01)
[2025-08-01] MEDS: PULMICORT 0.5 MG INH (20:01)
[2025-08-01] MEDS: LIPITOR 20 MG PO (21:07)
[2025-08-02 03:28] VITALS: BP 133/63
[2025-08-02 04:09] VITALS: BMI 24.4
[2025-08-02] MEDS: DUONEB 3 ML INH ×2 (07:50→19:22)
[2025-08-02] MEDS: PULMICORT 0.5 MG INH ×2 (07:50→19:23)
[2025-08-02 07:51] VITALS: BP 116/65
[2025-08-02 08:24] LABS: Hematocrit 28.0 % (39.0-52.0); Hemoglobin 8.5 g/dL (13.0-18.0); Mean Corp Hgb Conc. 30.4 g/dL (33.0-37.0); Mean Corpuscular Volume 74.3 fL (80.0-94.0); Platelet Count 224 10^3/uL (130-400); Red Cell Dist. Width 17.9 % (11.5-14.5)
[2025-08-02] MEDS: TOPROL XL 25 MG PO (08:35)
[2025-08-02] MEDS: FEOSOL 325 MG PO (08:35)
[2025-08-02] MEDS: CASODEX 50 MG PO (08:36)
[2025-08-02] MEDS: PROTONIX 40 MG PO (08:36)
[2025-08-02] MEDS: VITAMIN D3 (cholecalciferol) 50 MCG PO (08:36)
[2025-08-02] MEDS: LASIX 40 MG PO (08:36)
[2025-08-02] MEDS: NORVASC 5 MG PO (08:36)
[2025-08-02] MEDS: LOW STRENGTH ASPIRIN 81 MG PO (08:37)
[2025-08-02] MEDS: DEPAKOTE (12 HR RELEASE) 500 MG PO (08:40)
[2025-08-02] MEDS: ZOLOFT 100 MG PO (08:40)
[2025-08-02] MEDS: VITAMIN B-12 1000 MCG PO (08:40)
[2025-08-02] MEDS: BACTRIM DS 800 MG/160 MG 1 TABLET PO (08:41)
[2025-08-02] MEDS: DELTASONE 5 MG PO (08:45)
[2025-08-02 08:48] LABS: Blood Urea Nitrogen 20 mg/dl (9-20); Calcium 8.7 mg/dl (8.4-10.2); Chloride 96 mmol/L (98-107); Estimated Creatinine Clearance 78 ml/min; Glucose 82 mg/dl (70-99); Potassium 4.5 mmol/L (3.5-5.1); Sodium 139 mmol/L (135-145); eGFR > 60.00
[2025-08-02 09:45] LABS: Carbon Dioxide 40 mmol/L (22-30)
[2025-08-02 11:22] VITALS: BP 114/50
--- NOTE | 2025-08-02 14:24 | W.PN.HOSP.TC ---
Today's Communication/Plan
-
Discharge back to LTC today if they have availability
Assessment / Plan
Assessment / Plan
74M with chronic COPD with CO2 retention, noncompliant with nightly CPAP, p/w altered mental status.
PLAN:
Acute on chronic hypoxic/hypercarbic respiratory failure with acute metabolic encephalopathy�resolved
Hypoxic to 87 in ED, hypercapneic w/ pCO2 79
Suspect due to patient's noncompliance with nightly CPAP. No evidence of acute COPD exacerbation.
For chronic COPD will continue his DuoNebs, budesonide, low-dose prednisone.
Initiated BiPAP, patient refused. Respiratory care per O2 protocol while not wearing BiPAP. Repeat blood gas pending. Hypoxia resolved wearing home O2. Changed bipap to nightly and with naps, still refused
CXR with resolving pneumonia from last admission, currently no fever or leukocytosis or cough
Has baseline dementia
UTI with acute metabolic encephalopathy
Empiric ceftriaxone, patient refused. Changed to Bactrim, which he took.
UCx NGTD, in light of his acute metabolic encephalopathy which improved with treatment and his grossly positive UA will still opt to treat with Bactrim.
Chronic CHF preserved EF
Pulmonary hypertension
Echo 12/21 LVEF 60-65%. Mild LVH. Mild MR. Mild TR. Pulmonary artery pressure 65 mmHg
CAD with remote PCI
ECG with no ischemia
Appears compensated
Continue preadmission regimen including Norvasc, atorvastatin, metoprolol, Lasix
Chronic anemia
Microcytic, reviewed anemia panel from last month, appears to be iron deficiency
Hemoglobin is at baseline
iron supplementation
Dementia
suspect vascular type.
PRN Seroquel.
Continue Depakote
Continue sertraline
Prostate carcinoma
Continue antiandrogen therapy
DVT PPx
Lovenox SQ
Anticipated Discharge: Today
Subjective/Interval History
-
Date of Service: August 02, 2025
Patient had no acute issues overnight, states his breathing is fine, he is again angry stating 'on one did anything'
Objective Data
-
Labs:
Laboratory Results
08/02/25
07:19
WBC 6.6
Hgb 8.5 L
Hct 28.0 L
Plt Count 224 D
Sodium 139
Potassium 4.5
Chloride 96 L
Carbon Dioxide 40 H
BUN 20
Creatinine 0.9
Glucose 82
Calcium 8.7
Vital Signs:
Vital Signs
Temp Pulse Resp BP Pulse Ox
97.8 F 60 18 114/50 95
08/02/25 07:51 08/02/25 11:22 08/02/25 11:22 08/02/25 11:22 08/02/25 07:52
I&O
08/01/25 08/02/25 08/03/25
06:59 06:59 06:59
Intake Total 960 / 960 240 / 240
Output Total 600 / 600
Balance 360 / 360 240 / 240
Review of Systems
-
Unable to obtain full review of systems at this time due to: Dementia
History Source: Patient
All other systems: Reviewed and negative
Physical Exam
-
General: No Apparent Distress
HEENT: Moist Mucous Membranes, Anicteric and PERRLA
Respiratory: Clear to Auscultation; Negative Wheezes, Rales or Rhonchi
Cardiac: Regular Rhythm and S1/S2; Negative Murmur, Rub or Gallop
GI: Soft, Nontender, Nondistended and Normal Bowel Sounds
Musculoskeletal: No Edema
Skin: Warm and Dry; Negative Rash, Ulcers or Lesions
Neuro: Awake and Alert; Negative Oriented
Hematologic / Lymphatic: No Lymphadenopathy
Psych: Agitated and Apparent Dementia
Data Reviewed
-
Labs: Labs Reviewed by me
[2025-08-02 15:22] VITALS: BP 123/55
--- NOTE | 2025-08-02 15:25 | W.DCSUMMARY ---
Discharge Summary
Discharge Data
Date of Admission: 07/31/25
Date of Discharge: 08/02/25
Total time spent discharging patient (in min): 31
-
Pending Results: No
Hospital Course
Attending physician on day of discharge:
Soraida Burns MD
Discharge diagnosis:
Acute metabolic encephalopathy
Acute on chronic hypoxic/hypercarbic respiratory failure�CO2 retention
UTI
Secondary diagnoses:
Chronic CHF
Severe pulmonary hypertension
CAD
Hypertension
Chronic anemia
Dementia
Prostate carcinoma
Bipolar disorder
Consultations:
None
Procedures:
None
Hospital course:
74M with dementia, bipolar disorder, chronic COPD with CO2 retention, noncompliant with nightly CPAP, p/w altered mental status, combativeness, and hypoxia to 87% on 2L, hypercarbic with pCO2 of 79. Patient was placed on BiPAP, but after wearing it
briefly, he removed and refused to wear it again. He continued to have CO2 retention. His oxygen was weaned back to anywhere between room air and 2 L which is his home requirement. He was found to have abnormal UA with 3+ LE, neg nit, >100 WBCs,
0-2 squamous epi, however urine culture was no growth. He was empirically treated with ceftriaxone, however he refused, so it was switched to oral Bactrim DS. His mental status returned to baseline. Recommendation is to complete 5 days of oral
Bactrim, and wear BiPAP nightly if agreeable.
Physical exam on discharge:
See note
Discharge disposition:
Long-term care
Discharge Plan
-
Patient Disposition: Care Home/SNF
Discharge Diagnosis/Procedures: Acute metabolic encephalopathy, UTI, Chronic hypercapneic respiratory failure
Diet: Regular
Activity: As tolerated
Referrals:
Adam Leiva I., DO [Family Provider, Internal Medicine]
Prescriptions:
New
sulfamethoxazole-trimethoprim 800-160 mg Tablet
1 tab PO BID 5 Days Qty: 10 0RF
Continued
aspirin 81 MG tablet,chewable
81 mg PO DAILY 30 Days Qty: 30 0RF
bicalutamide 50 mg tablet
50 mg PO DAILY
acetaminophen 325 mg Tablet
650 mg PO Q4HPRN PRN (Reason: mild pain/fever)
sertraline 50 mg Tablet
100 mg PO DAILY
magnesium hydroxide [Milk of Magnesia] 400 mg/5 mL suspension
30 ml PO DAILYPRN PRN (Reason: constipation)
bisacodyl 10 mg suppository
10 mg MS DAILYPRN PRN (Reason: if MOM is ineffective after 24 hrs)
atorvastatin 20 mg Tablet
20 mg PO HS
ipratropium-albuterol 0.5 mg-3 mg(2.5 mg base)/3 mL solution for nebulization
3 ml inhalation R BID
metoprolol succinate 25 mg Tablet Extended Release 24 Hr
25 mg PO DAILY Qty: 30 11RF
ipratropium-albuterol 0.5 mg-3 mg(2.5 mg base)/3 mL Solution For Nebulization
3 ml inhalation R Q4HPRN PRN (Reason: shortness of breath) Qty: 0 0RF
cyanocobalamin (vitamin B-12) [Vitamin B-12] 1,000 mcg Tablet
1,000 mcg PO DAILY Qty: 0 0RF
budesonide 0.5 mg/2 mL Suspension For Nebulization
0.5 mg inhalation R BID Qty: 60 0RF
prednisone 5 mg Tablet
5 mg PO MOWEFR
amlodipine [Norvasc] 5 mg Tablet
5 mg PO DAILY
fluticasone propionate 50 mcg/actuation [place],Suspension
2 spray INTRANASAL DAILY
menthol-zinc oxide [Moisture Barrier Ointment] 0.44-20.6 % Ointment
1 applic TOPICAL TID
divalproex [Depakote] 250 mg Tablet,Delayed Release (Dr/Ec)
500 mg PO BID
furosemide 40 mg tablet
40 mg PO DAILY
pantoprazole [Protonix] 40 mg tablet,delayed release (DR/EC)
40 mg PO BID
cholecalciferol (vitamin D3) 50 mcg (2,000 unit) tablet
50 mcg PO DAILY
Fleet Enema 19-7 gram/118 mL Enema
118 ml MS DAILYPRN PRN (Reason: if no bm aftr dulcolax)
Held
potassium chloride 10 mEq Tablet Extended Release
30 meq PO DAILY
Hold Instructions: Resume on 08/08/25. HOLD WHILE ON ANTIBIOTICS (BACTRIM)
Discharge Orders:
Discharge Patient (As Directed); Ordered 08/02/25
Ordered By: Soraida Burns
Discharge Date and Time
Print Language: [place]
[2025-08-02] MEDS: LOVENOX SC (18:11)
[2025-08-02 19:00] VITALS: BP 105/45
[2025-08-02 19:58] VITALS: BP 143/82
--- NOTE | 2025-08-02 20:38 | PTCARENOTE ---
Vital signs obtained on patient. Patient is aao x2; forgetful. Patient is diminished on 3L of O2. IV removed. Heart monitor removed. Report given to EMS car pick up driver. Patient to return to previous facility. Patient discharged with clothes and cell phone.
== END 2025-08-02 20:43 | DRG 189 ==
LOC: 4 WEST ACU 12:56
PROVIDERS: ADMITTING PHYSICIAN Internal Medicine; EMERGENCY PHYSICIAN Student in an Organized Health Care Education/Training Program; FAMILY PHYSICIAN Internal Medicine
DX: J96.21 Acute and chronic respiratory failure with hypoxia (principal); G93.41 Metabolic encephalopathy; G93.1 Anoxic brain damage, not elsewhere classified; N39.0 Urinary tract infection, site not specified; I50.42 Chronic combined systolic (congestive) and diastolic (congestive) heart failure; F17.200 Nicotine dependence, unspecified, uncomplicated; J96.22 Acute and chronic respiratory failure with hypercapnia; Z91.199 Patient's noncompliance with other medical treatment and regimen due to unspecified reason; I27.20 Pulmonary hypertension, unspecified; F31.9 Bipolar disorder, unspecified; I11.0 Hypertensive heart disease with heart failure; Z79.899 Other long term (current) drug therapy
CPT/HCPCS: 71045; 80048; 80053; 81003; 81015; 82805; 85025; 85027; 87086; 93005; 94640; 94660; 99285